=== PATIENT | female | born 1955 | race Two or more races ===

== ENCOUNTER 2017-02-13 07:20 | Emergency (ER) | payer OTHER ==
--- NOTE | 2017-02-13 07:45 | ER Document Report ---
HPI - HPI Patient complains to provider of: Left foot pain Onset: Other - Onset/Duration: Gradual, Persistent Quality of pain: Achy, Throbbing Pain Level: 5 Context: 62-year-old female complaining of dorsal left foot pain throbbing that started 2 days ago. It started swelling yesterday. No known injury. No history of gout. No fever or chills. Associated Symptoms: None Exacerbated by: Walking Relieved by: Denies Similar symptoms previously: No Recently seen / treated by doctor: No - ROS ROS below otherwise negative: Yes Systems Reviewed and Negative: Yes All other systems reviewed and negative - DERM Skin Color: Normal Past Medical History - General Information source: Patient - Social History Smoking Status: Never Smoker Frequency of alcohol use: None Drug Abuse: None Lives with: Family Family History: Reviewed & Not Pertinent Endocrine Medical History: Reports: Hx Diabetes Mellitus Type 2 Renal/ Medical History: Denies: Hx Peritoneal Dialysis Surgical Hx: Negative Vertical Provider Document - CONSTITUTIONAL Agree With Documented VS: Yes - INFECTION CONTROL TRAVEL OUTSIDE OF THE [place] IN LAST 30 DAYS: No - HEENT HEENT: Normocephalic - NECK Neck: Supple - RESPIRATORY Respiratory: Breath Sounds Normal, No Respiratory Distress O2 Sat by Pulse Oximetry: 97 - CARDIOVASCULAR Cardiovascular: Regular Rate, Regular Rhythm - MUSCULOSKELETAL/EXTREMETIES Musculoskeletal/Extremeties: MAEW, FROM, Tender - dorsal left foot over proximal 3rd MT, with 1.5 cm pink warm area, surrounding soft tissue swelling, no lypmhangitis, no cellulitis, Edema - NEURO Level of Consciousness: Awake, Alert Motor/Sensory: No Motor Deficit, No Sensory Deficit Notes: 2+ DP - DERM Integumentary: Warm, Dry Notes: see above Course - Vital Signs Vital signs: Temp Pulse Resp BP Pulse Ox 97.9 F 67 18 125/70 97 02/13/17 07:24 02/13/17 07:24 02/13/17 07:24 02/13/17 07:24 02/13/17 07:24 - Laboratory Result Diagrams: 02/13/17 08:25 02/13/17 08:25 Discharge - Discharge Clinical Impression: Gout of left foot Qualifiers: Gout etiology: unspecified cause Chronicity: acute Qualified Code(s): M10.9 - Gout, unspecified Condition: Good Disposition: HOME, SELF-CARE Instructions: Anti-Inflammatory Medication ([facility]), Use of Crutches ([facility]), Gout ( [facility]), Gout Diet ([facility]) Additional Instructions: elevate crutches cool compress gout prevention diet included to er if worse see your doctor for follow up Please complete the patient satisfaction survey if you get one, and return it.. If you do not receive a survey, then you can go to the [facility] website, [email or web address] and place your comments about your very good care. Thank you very much. It was a pleasure being your medical provider today. Prescriptions: Ibuprofen [Motrin 800 mg Tablet] 800 mg PO Q8HP PRN #20 tablet PRN Reason: Referrals: МАРИНА SPANGLER MD [Primary Care Provider] - Follow up as needed
[2017-02-13 08:40] LABS: ABSOLUTE EOSINOPHILS # (AUTO) 0.1 10^3/uL (0.0-0.6); ABSOLUTE LYMPHOCYTES (AUTO) 2.7 10^3/uL (0.5-4.7); ABSOLUTE MONOCYTES (AUTO) 0.6 10^3/uL (0.1-1.4); ABSOLUTE NEUT (AUTO) 5.3 10^3/uL (1.7-8.2); BASOPHILS % (AUTO) 0.5 % (0-2); HEMOGLOBIN 13.4 g/dL (12.0-15.5); HGB HCT DIFFERENCE 0.2; LYMPHOCYTES % (AUTO) 30.7 % (13-45); MEAN CORPUSCULAR HEMOGLOBIN 32.1 pg (27.0-33.4); MEAN CORPUSCULAR HGB CONC 33.4 g/dL (32.0-36.0); MEAN CORPUSCULAR VOLUME 96 fl (80-97); MONOCYTES % (AUTO) 6.8 % (3-13); RED BLOOD COUNT 4.17 10^6/uL (3.72-5.28); RED CELL DISTRIBUTION WIDTH 12.8 % (11.5-14.0); WHITE BLOOD COUNT 8.7 10^3/uL (4.0-10.5)
--- NOTE | 2017-02-13 08:40 | RADIOLOGY REPORT (SQ) ---
EXAM DESCRIPTION: FOOT LEFT COMPLETE COMPLETED DATE/TIME: 02/13/2017 8:16 am REASON FOR STUDY: left dorsal foot pain, atraumatic COMPARISON: None. NUMBER OF VIEWS: Three views. TECHNIQUE: AP, lateral and oblique radiographic images acquired of the left foot. LIMITATIONS: None. FINDINGS: MINERALIZATION: Normal. BONES: No acute fracture or dislocation. No worrisome bone lesions. JOINTS: No effusions. SOFT TISSUES: No soft tissue swelling. No foreign body. OTHER: No other significant finding. IMPRESSION: NEGATIVE STUDY OF THE LEFT FOOT. NO RADIOGRAPHIC EVIDENCE OF ACUTE INJURY. TECHNICAL DOCUMENTATION: JOB ID: [id number] [employer]- All Rights Reserved
[2017-02-13 08:51] LABS: ALANINE AMINOTRANSFERASE 49 U/L (9-52); ALBUMIN 3.8 g/dL (3.5-5.0); ALKALINE PHOSPHATASE 81 U/L (38-126); ANION GAP 10 (5-19); ASPARTATE AMINO TRANSFERASE 40 U/L (14-36); BILIRUBIN,DIRECT 0.3 mg/dL (0.0-0.4); BILIRUBIN,TOTAL 0.5 mg/dL (0.2-1.3); BLOOD UREA NITROGEN 18 mg/dL (7-20); CALCIUM 9.1 mg/dL (8.4-10.2); CARBON DIOXIDE 24 mmol/L (22-30); CHLORIDE 108 mmol/L (98-107); CREATININE RESULT 0.93 mg/dL (0.52-1.25); GLUCOSE 130 mg/dL (75-110); POTASSIUM 4.2 mmol/L (3.6-5.0); SODIUM 142.4 mmol/L (137-145); URIC ACID 8.5 mg/dL (2.5-7.5)
[2017-02-13] MEDS ORDERED: IBUPROFEN 800 MG TABLET PO ONE (08:52)
[2017-02-13 09:26] VITALS: BP 123/72
== END 2017-02-13 09:26 | disposition home or self-care (01) ==
LOC: ER 07:20
DX: M10.9 Gout, unspecified (principal); M79.672 Pain in left foot
CPT/HCPCS: 36415; 80053; 84550; 85025; 99284

== ENCOUNTER → 2017-05-07 | Outpatient (CLI) | payer OTHER ==
--- NOTE | 2017-05-07 09:49 | RADIOLOGY REPORT (SQ) ---
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 TECHNIQUE: Post IV contrasted scanning from skull base through lung apices with review of bone, soft tissue and lung windows. Reconstructed coronal and sagittal MPR images reviewed. All images stored on PACS. All CT scanners at this facility use dose modulation, iterative reconstruction, and/or weight based d osing when appropriate to reduce radiation dose to as low as reasonably achievable (ALARA). [facility]: Dose Right [facility]: CareDose [facility]: Dose Right [facility]: Teradose 4D [facility]: [employer] CONTRAST TYPE AND DOSE: contrast/concentration: Isovue 370.00 mg/ml; Total Contrast Delivered: 73.0 ml; Total Saline Delivered: 55.0 ml Patient was treated with us oral steroid prep, had no immediate complications post injection of Isovu e. RENAL FUNCTION: Creatinine 0.8 RADIATION DOSE: Up-to-date CT equipment and radiation dose reduction techniques were employed. CTDIv ol: 17.4 mGy. DLP: 496 mGy-cm. . LIMITATIONS: None. FINDINGS: SKULL BASE: Intact. MAJOR SALIVARY GLANDS: There is bilateral parotid gland hypertrophy. The right parotid gland measure s 6 cm craniocaudad by 5 cm AP by 5 cm transverse. Along the expected location of the right facial v ein, a 2 x 1 cm avidly enhancing lesion is present, likely ectasia of the right facial vein. This is best shown on axial image 24-29 and coronal image 49. Right parotid gland ultrasound is recommended for correlation. There are tiny intra parotid lymph nodes less than 5 mm in size in the superficial lobe anteriorly. On the left side, the left parotid gland measures about 6 cm craniocaudad by 5.7 cm AP by 5.4 cm mceknzie sverse. No worrisome nodules. Tiny intra parotid lymph nodes less than 5 mm in size are present in the superficial lobe. Submandibular and sublingual glands are unremarkable. LYMPHADENOPATHY: No adenopathy. MUCOSAL MASSES OR ASYMMETRY: No mucosal masses or asymmetry. LARYNX/CORDS: No abnormal findings. VASCULAR STRUCTURES: The major vessels are patent. LUNG APICES: Clear. BONES: Intact. 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 THYROID: Massive enlargement of the thyroid gland. Right lobe 8 cm craniocaudad by 4.3 cm transverse by 4.3 cm AP, with a 2 cm hypodensity for nodule in the right midpole gland. Left lobe thyroid 7.7 cm craniocaudad by 3.4 cm transverse by 4.3 cm AP. Multiple hypodensities in t he left lobe thyroid, the largest is 12 mm in diameter on axial image 64. PARANASAL SINUSES: Clear. OTHER: No other significant finding. IMPRESSION: Diffuse thyromegaly with multiple nodules, likely reflecting a goiter Bilateral parotid gland enlargement. Probable ectasia of the right facial vein, for which ultrasound correlation is recommended TECHNICAL DOCUMENTATION: JOB ID: [id number] Quality ID # [id number]: Final reports with documentation of one or more dose reduction techniques (e.g., Au tomated exposure control, adjustment of the mA and/or kV according to patient size, use of iterative reconstruction technique) 2010 [employer]- All Rights Reserved
== END ==
LOC: RAD 06:20
PROVIDERS: ATTEND Otolaryngology
DX: K11.1 Hypertrophy of salivary gland (principal)
CPT/HCPCS: 70491; 82565

== ENCOUNTER → 2017-05-25 | Outpatient (CLI) | payer OTHER ==
--- NOTE | 2017-05-25 17:30 | RADIOLOGY REPORT (SQ) ---
EXAM DESCRIPTION: U/S THYROID/SFT TISS HD NECK COMPLETED DATE/TIME: 05/25/2017 5:11 pm REASON FOR STUDY: K11.1 HYPERTROPHY OF SALIVARY GLAND K11.1 HYPERTROPHY OF SALIVARY GLAND COMPARISON: None. TECHNIQUE: Dynamic and static ibarra-scale images acquired of the thyroid gland. Selected additional c olor/power Doppler images recorded. All images stored to PACS. LIMITATIONS: None. FINDINGS: RIGHT LOBE: Normal size, 4.6 x 2.9 x 2.2 cm. Heterogeneous echotexture. There is a compl ex lesion in the lower pole that measures 2 x 2.3 x 1.7 cm. Several smaller hypoechoic Lesions are s een. LEFT LOBE: Normal size, 4.6 x 3.9 x 2.1 cm. Heterogeneous echotexture. Multiple definable solid nod ules are present. The largest is in the lower pole and measures 1.6 x 2 x 1.6 cm. ISTHMUS: Normal size, 7 mm Homogeneous echotexture. No cystic or solid masses. OTHER: No other significant finding. IMPRESSION: Multinodular goiter. Consider biopsy of the larger lesions on each side. TECHNICAL DOCUMENTATION: JOB ID: [id number]- All Rights Reserved
== END ==
LOC: RAD 16:12
PROVIDERS: ATTEND Otolaryngology
DX: K11.1 Hypertrophy of salivary gland (principal); E04.2 Nontoxic multinodular goiter
CPT/HCPCS: 76536

== ENCOUNTER 2017-08-28 19:26 | Emergency (ER) | payer OTHER ==
[2017-08-28] MEDS ORDERED: OXYCODONE-ACETAMINOPHEN 5-325 MG TABLET PO ONE (21:24)
--- NOTE | 2017-08-28 21:31 | ER Document Report ---
ED Fall - General Chief Complaint: Fall Injury Stated Complaint: FALL Time Seen by Provider: 08/28/17 21:14 Mode of Arrival: Medic Information source: Patient Notes: 62-year-old female presents to ED for complaint of pain to her left hip knee leg ankle and foot. She states she tripped over the kitchen rug at home and fell landing with her left knee underneath of her landing on her left hip. Pedal pulses are intact no deformity noted minimal swelling to the ankle and foot. TRAVEL OUTSIDE OF THE [place] IN LAST 30 DAYS: No - HPI Occurred: This - 1819 this evening Where: Home, Indoors Context: Tripped, Fell from standing Associated symptoms: Difficulty walking Location of injury/pain: Ankle, Foot, Hip, Knee Quality of pain: Sharp, Throbbing Severity: Moderate Pain Level: 3 - Related data Allergies/Adverse Reactions: iodine Allergy (Verified 02/13/17 07:28) Past Medical History - General Information source: Patient - Social History Smoking Status: Never Smoker Cigarette use (# per day): No Chew tobacco use (# tins/day): No Smoking Education Provided: No Frequency of alcohol use: None Drug Abuse: None Occupation: [employer] work Lives with: Family Family History: Arthritis, DM, Hypertension, Malignancy. denies: CAD, COPD, CVA , Hyperlipidemia, Thyroid Disfunction Patient has suicidal ideation: No Patient has homicidal ideation: No - Past Medical History Cardiac Medical History: Reports: Hx Hypertension Pulmonary Medical History: Reports: None EENT Medical History: Reports: None Neurological Medical History: Reports: None Endocrine Medical History: Reports: Hx Diabetes Mellitus Type 2 Renal/ Medical History: Reports: None Malignancy Medical History: Reports: None GI Medical History: Reports: Hx Colonoscopy, Hx Endoscopy Musculoskeltal Medical History: Reports Hx Arthritis, Reports Hx Musculoskeletal Trauma Skin Medical History: Reports None Psychiatric Medical History: Reports: None Traumatic Medical History: Reports: None Infectious Medical History: Reports: None Past Surgical History: Reports: Hx Cholecystectomy, Hx Hysterectomy - Immunizations Hx Diphtheria, Pertussis, Tetanus Vaccination: No Review of Systems - Review of Systems Constitutional: No symptoms reported EENT: No symptoms reported Cardiovascular: No symptoms reported Respiratory: No symptoms reported Gastrointestinal: No symptoms reported Genitourinary: No symptoms reported Female Genitourinary: No symptoms reported Musculoskeletal: Joint pain - Pain from her left hip to her left foot, Joint swelling, Muscle pain, Muscle stiffness Skin: No symptoms reported Hematologic/Lymphatic: No symptoms reported Neurological/Psychological: No symptoms reported -: Yes All other systems reviewed and negative Physical Exam - Vital signs Vitals: Temp Pulse BP Pulse Ox 97.7 F 87 132/66 H 97 08/28/17 19:38 08/28/17 19:38 08/28/17 19:38 08/28/17 19:38 Interpretation: Normal - General General appearance: Appears well, Alert - HEENT Head: Normocephalic, Atraumatic Eyes: Normal Pupils: PERRL - Respiratory Respiratory status: No respiratory distress Chest status: Nontender Breath sounds: Normal Chest palpation: Normal - Cardiovascular Rhythm: Regular Heart sounds: Normal auscultation Murmur: No - Abdominal Inspection: Normal Distension: No distension Bowel sounds: Normal Tenderness: Nontender Organomegaly: No organomegaly - Back Back: Normal, Nontender - Extremities General upper extremity: Normal inspection, Nontender, Normal color, Normal ROM , Normal temperature General lower extremity: Normal temperature, Normal weight bearing. No: Javier' s sign Hip: Tender, Pain with ROM. No: Abrasion, Deformity, Dislocation, Ecchymosis, Instability, Laceration, Unable to bear weight Thigh: Tender Knee: Tender, Pain with ROM, Patellar tendon intact, Tender joint line. No: Abrasion, Deformity, Dislocation, Drawer's test instability, Ecchymosis, Instability, Laceration, Laxity with valgus stress, Laxity with varus stress, Popliteal fossa tender, Unable to bear weight Calf: Tender. No: Abrasion, Deformity, Ecchymosis, Instability, Laceration, Unable to bear weight Ankle: Tender, Limited ROM - Due to pain. No: Abrasion, Deformity, Ecchymosis, Edema, Instability, Laceration, Positive Diez's test, Unable to bear weight Foot: Tender, Metatarsal compress. pain, No evidence of FB. No: Abrasion, Deformity, Ecchymosis, Edema, Instability, Laceration, Nail injury, Navicular tenderness, Tender 5th metatarsal - Neurological Neuro grossly intact: Yes Cognition: Normal Orientation: AAOx4 [place] Coma Scale Eye Opening: Spontaneous [place] Coma Scale Verbal: Oriented [place] Coma Scale Motor: Obeys Commands Karla Coma Scale Total: 15 Speech: Normal Motor strength normal: LUE, RUE, LLE, RLE Sensory: Normal - Psychological Associated symptoms: Normal affect, Normal mood - Skin Skin Temperature: Warm Skin Moisture: Dry Skin Color: Normal Course - Re-evaluation Re-evalutation: 08/28/17 22:42 X-rays discussed with patient. Patient was treated with 1 Percocet in the emergency room and sent home with prescription for Percocet. Patient instructed to follow-up with her primary doctor and with the orthopedic doctor for this ankle sprain with arthritis to the knee and contusions to the hip leg ankle and foot. Patient verbalized understanding of instructions for elevation ice and ibuprofen and Miguel Angel wrap with splint. Patient was instructed on use of crutches in the emergency room. - Vital Signs Vital signs: Temp Pulse Resp BP Pulse Ox 97.3 F 74 20 132/70 H 96 08/28/17 23:02 08/28/17 23:02 08/28/17 23:02 08/28/17 23:02 08/28/17 23:02 - Diagnostic Test Radiology reviewed: Image reviewed, Reports reviewed Procedures - Immobilization Left Ankle Time completed: 22:42 Pre-Proc Neuro Vasc Exam: Normal Immobilizer type: Miguel Angel wrap, Ankle stirrup, Crutches Performed by: Provider assisted, Other - actuary clerk Post-Proc Neuro Vasc Exam: Normal Alignment checked and good: Yes Discharge - Discharge Clinical Impression: Arthritis Fall Qualifiers: Encounter type: initial encounter Qualified Code(s): W19.XXXA - Unspecified fall, initial encounter Contusion, hip and thigh Qualifiers: Encounter type: initial encounter Laterality: left Qualified Code(s): S70.02XA - Contusion of left hip, initial encounter Contusion, knee and lower leg Qualifiers: Encounter type: initial encounter Laterality: left Qualified Code(s): S80.02XA - Contusion of left knee, initial encounter Sprained ankle Qualifiers: Encounter type: initial encounter Involved ligament of ankle: unspecified ligament Laterality: left Qualified Code(s): S93.402A - Sprain of unspecified ligament of left ankle, initial encounter Condition: Stable Disposition: HOME, SELF-CARE Additional Instructions: Contusion Your injury has resulted in a contusion -- a crushing of the deep tissues. No injury to important structures was detected during the physician's exam. Contusions vary in the amount of pain they cause, and in the length of time required for healing. Typically, the area will become bruised, and will remain painful to touch for two or three weeks. However, most patients are back to working and playing within a few days. After the initial period of rest and cold-packs, your symptoms (together with the doctor's recommendations) will determine how rapidly you can get back to full activity. Usually this means "do what feels okay, but don't do things that hurt." If re-examination was recommended, it's important to follow up as instructed. Call the doctor or return any time if pain increases, if swelling becomes severe, if you develop numbness or weakness in an injured extremity, or if any other alarming symptoms occur. Arthritis Your symptoms are due to arthritis. Arthritis is an inflammation of the joints. There are many types -- osteoarthritis (due to "wear and tear"), auto- immmune arthritis (such as rheumatoid, lupus, Mariel's, and others), and crystal -induced arthritis (such as gout and pseudogout). The physician's examination, combined with laboratory tests, will determine the cause of your arthritis. All types of arthritis are treated with antiinflammatory medications. Other medication may be required for special types of arthritis, or if your problem does not respond to the antiinflammatory medicine. Local warmth may be helpful. Move the involved joints through the full range of motion daily. Mild exercise is usually still possible for most persons with arthritis (ask your physician). Swimming provides good exercise without damaging the joints. Contact the physician if you are worsening in any way. SPRAINED ANKLE: Your sprained ankle results from stretching or tearing of the ligaments which support the ankle. This usually results from twisting the foot inward and under. The ligaments will require time and protection in order to heal properly. Many ankle sprains are quite disabling, and should be taken seriously. The usual treatment for an ankle sprain is cold packs; protection with tape , splints, or wraps; elevation; and staying off the ankle for at least a day. As the ankle improves, you can walk IF it's not painful to bear weight. Sports are best postponed until healing is complete. More serious sprains usually require strengthening exercises after early healing. Your physician has assessed the seriousness of the ligament injury to your ankle. However, the treatment may change, depending on how your ankle progresses. If further exams were recommended, it is important that you follow through. Call the doctor if your foot becomes numb, painful, or severely swollen. MIGUEL ANGEL WRAP: A compression dressing (miguel angel wrap) has been placed. This helps hold the area still. It limits swelling and internal bleeding. The wrap should be comfortably snug -- not tight. You should feel a sense of pressure, but not severe pain under the wrap. Unless the physician tells you otherwise, you can adjust the wrap for comfort. If the wrap causes symptoms suggesting it's too tight -- uncomfortable pressure, swelling or discoloration beyond the wrap, numbness, or severe pain - - you must loosen the wrap. If these symptoms don't resolve promptly, return for re-evaluation. ANKLE STIRRUP SPLINT: You are to use an ankle brace called a stirrup splint. This type of brace allows you to place greater stresses on the ankle without risk of re-injury, and is often used for more severe ankle injuries such as avulsion fractures and ligament ruptures. The splint can be worn over a sock or tape. For proper support, wear the splint with a shoe over it. It's important that the splint fit properly. Adjust the heel tension, if needed. If your splint has air bladders, peel back the bottom of each air bladder, then move the Velcro attachment of the heel strap up or down. Air bladder pressure can be adjusted by pulling up the valve at the top, threading the air tube down into the main bladder, then blowing air into the bladder or squeezing it out. The two sides of the stirrup can be moved forward or back on your ankle by changing the attachment of the main straps. If you are unable to use the ankle comfortably in the splint, return for re -evaluation. USE OF CRUTCHES: The doctor has recommended that you not bear weight at this time. You will need to use crutches. Adjust the crutches so the tops come to about two inches under the armpit while you are standing upright. Use your hands -- not your armpits -- to support your weight. To get into a chair, support yourself with one crutch on the injured side. Hold the chair with the other hand, then lower yourself while putting all your weight on the good leg. Going up stairs is `good leg up, step up, then bring up crutches and bad leg.' Down stairs is `bad leg and crutches down, then bring good leg down.' If you develop numbness or swelling in an arm or hand, you are using the crutches incorrectly. Return if you are having any problems with the crutches. ICE & ELEVATION: Apply ice packs frequently against the painful area. Many different schedules are recommended, such as "20 minutes on, 20 minutes off" or "one hour ice, two hours rest." If you need to work, you may need to go longer between ice treatments. You should plan to have the area ice packed AT LEAST one- fourth of the time. The ice should be applied over the wrap, tape, or splint, or over a layer of cloth -- not directly against the skin. Some ice bags have a built-in cloth and can be put directly on the skin. Your injured part should be elevated as much as possible over the next 48 hours. Try to keep the injury above the level of the heart. Avoid use of the injured area. Elevation and rest will decrease the swelling. USE OF [id number]-FOBMYAR IBUPROFEN: Ibuprofen (Advil, Nuprin, Medipren, Motrin IB) is a medication for fever and pain control. In addition, it has anti- inflammatory effects which may be beneficial, especially in the treatment of injuries. It's best to take ibuprofen with food. Persons with ulcer disease or allergy to aspirin should notify their physician of this before taking ibuprofen. Ibuprofen can be given every four to six hours, for a total of four doses daily. Age Pain or fever dose Antiinflammatory dose 6-8 yr 200 mg (1 tab) 200 mg (1 tab) 9-11 yr 200 mg (1 tab) 200-400 mg (1-2 tab) 11-14 yr 200-400 mg (1-2 tab) 400 mg (2 tab) 15-adult 400 mg (2 tab) 600 mg (3 tab) ORAL NARCOTIC MEDICATION: You have been given a prescription for pain control. This medication is a narcotic. It's best taken with food, as nausea can result if taken on an empty stomach. Don't operate machinery or drive within six hours of taking this medication. Do not combine this medicine with alcohol, or with any medication which can cause sedation (such as cold tablets or sleeping pills) unless you get permission from the physician. Narcotics tend to cause constipation. If possible, drink plenty of fluids and eat a diet high in fiber and fruits. Please be aware that prescription narcotics also have the potential for abuse. People become addicted to these medications because of the general sense of wellbeing that they induce. This feeling along with a significant reduction in tension, anxiety, and aggression provides a stimulating seductive quality to these drugs. Once your pain is under control, we encourage you to discard your unused narcotics. Call Wednesday to schedule a follow-up appointment with both your primary doctor and the orthopedic doctor. FOLLOW-UP CARE: If you have been referred to a physician for follow-up care, call the physician s office for an appointment as you were instructed or within the next two days. If you experience worsening or a significant change in your symptoms, notify the physician immediately or return to the Emergency Department at any time for re-evaluation. Prescriptions: Oxycodone HCl/Acetaminophen [Percocet 5-325 mg Tablet] 1 tab PO Q8HP PRN #5 tablet PRN Reason: Forms: Elevated Blood Pressure, Return to Work Referrals: МАРИНА SPANGLER MD [Primary Care Provider] - 08/30/17 ANNEMARIE QUEZADA MD [ACTIVE STAFF] - 08/30/17
--- NOTE | 2017-08-28 22:09 | RADIOLOGY REPORT (SQ) ---
EXAM DESCRIPTION: ANKLE LEFT COMPLETE COMPLETED DATE/TIME: 08/28/2017 10:00 pm REASON FOR STUDY: fall landing on hip with knee under her COMPARISON: None. NUMBER OF VIEWS: Three views. TECHNIQUE: AP, lateral, and oblique radiographic images acquired of the left ankle. LIMITATIONS: None. FINDINGS: MINERALIZATION: Normal. BONES: No acute fracture or dislocation. No worrisome bone lesions. Tibial and calcaneal enthesophy rita are present. JOINTS: No effusions. SOFT TISSUES: Mild circumferential soft tissue edema. OTHER: No other significant finding. IMPRESSION: Mild circumferential soft tissue edema. No underlying fracture. TECHNICAL DOCUMENTATION: JOB ID: [id number] [employer]- All Rights Reserved Reading location - IP/workstation name: [email or web address]
--- NOTE | 2017-08-28 22:10 | RADIOLOGY REPORT (SQ) ---
EXAM DESCRIPTION: HIP LEFT AP/LATERAL COMPLETED DATE/TIME: 08/28/2017 10:00 pm REASON FOR STUDY: fall landing on hip with knee under her COMPARISON: None. NUMBER OF VIEWS: Two views. TECHNIQUE: AP pelvis and additional frog-leg view of the left hip. LIMITATIONS: None. FINDINGS: MINERALIZATION: Normal. LEFT HIP: No fracture or dislocation. No worrisome bone lesions. RIGHT HIP: No fracture or dislocation. No worrisome bone lesions. PUBIS AND ISCHIUM: No fracture. PELVIS: No fracture. SACRUM: No fracture or dislocation. No worrisome bone lesions. LOWER LUMBAR SPINE: No fracture or dislocation. No worrisome bone lesions. Degenerative changes are present. SOFT TISSUES: No findings. OTHER: No other significant finding. IMPRESSION: No evidence of acute osseous injury. TECHNICAL DOCUMENTATION: JOB ID: [id number] [employer]- All Rights Reserved Reading location - IP/workstation name: [email or web address]
--- NOTE | 2017-08-28 22:10 | RADIOLOGY REPORT (SQ) ---
EXAM DESCRIPTION: FOOT LEFT COMPLETE COMPLETED DATE/TIME: 08/28/2017 10:00 pm REASON FOR STUDY: fall landing on hip with knee under her COMPARISON: 02/13/2017 NUMBER OF VIEWS: Three views. TECHNIQUE: AP, lateral and oblique radiographic images acquired of the left foot. LIMITATIONS: None. FINDINGS: MINERALIZATION: Normal. BONES: No acute fracture or dislocation. No worrisome bone lesions. Mild midfoot degenerative infante es are present. JOINTS: No effusions. SOFT TISSUES: No soft tissue swelling. No foreign body. OTHER: No other significant finding. IMPRESSION: No evidence of acute osseous injury. TECHNICAL DOCUMENTATION: JOB ID: [id number] [employer]- All Rights Reserved Reading location - IP/workstation name: [email or web address]
--- NOTE | 2017-08-28 22:11 | RADIOLOGY REPORT (SQ) ---
EXAM DESCRIPTION: KNEE LEFT 4 VIEW COMPLETED DATE/TIME: 08/28/2017 10:00 pm REASON FOR STUDY: fall landing on hip with knee under her COMPARISON: None. NUMBER OF VIEWS: Four views. TECHNIQUE: AP, lateral, and both oblique radiographic images acquired of the left knee. LIMITATIONS: None. FINDINGS: MINERALIZATION: Normal. BONES: No acute fracture or dislocation. No worrisome bone lesions. Tricompartmental degenerative c hanges are present. JOINT: No effusion. SOFT TISSUES: No soft tissue swelling. No radio-opaque foreign body. OTHER: No other significant finding. IMPRESSION: No evidence of acute osseous injury. Background of tricompartmental degenerative change s. TECHNICAL DOCUMENTATION: JOB ID: [id number] [employer]- All Rights Reserved Reading location - IP/workstation name: [email or web address]
--- NOTE | 2017-08-28 22:12 | RADIOLOGY REPORT (SQ) ---
EXAM DESCRIPTION: TIBIA FIBULA LEFT COMPLETED DATE/TIME: 08/28/2017 10:00 pm REASON FOR STUDY: fall landing on hip with knee under her COMPARISON: None. NUMBER OF VIEWS: Two views. TECHNIQUE: Two radiographic images acquired of the left tibia and fibula to include the knee and ank le in at least one projection. LIMITATIONS: None. FINDINGS: MINERALIZATION: Normal. BONES: No acute fracture or dislocation. No worrisome bone lesions. SOFT TISSUES: No obvious swelling or foreign body. OTHER: No other significant finding. IMPRESSION: No evidence of acute osseous injury. TECHNICAL DOCUMENTATION: JOB ID: [id number] [employer]- All Rights Reserved Reading location - IP/workstation name: [email or web address]
[2017-08-28 23:04] VITALS: BP 132/70
== END 2017-08-28 23:04 | disposition home or self-care (01) ==
LOC: ER 19:26
DX: S93.402A Sprain of unspecified ligament of left ankle, initial encounter (principal); S70.02XA Contusion of left hip, initial encounter; S80.02XA Contusion of left knee, initial encounter; S90.30XA Contusion of unspecified foot, initial encounter; W01.0XXA Fall on same level from slipping, tripping and stumbling without subsequent striking against object, initial encounter; Y92.000 Kitchen of unspecified non-institutional (private) residence as the place of occurrence of the external cause; I10 Essential (primary) hypertension; M25.572 Pain in left ankle and joints of left foot; M25.552 Pain in left hip; M25.562 Pain in left knee; M79.1 Myalgia
CPT/HCPCS: 99283; 73610; 73630; 73502; 73562; 73590; L1902

== ENCOUNTER → 2019-03-09 | Outpatient (CLI) | payer OTHER ==
--- NOTE | 2019-03-09 16:51 | RADIOLOGY REPORT (SQ) ---
EXAM DESCRIPTION: CHEST PA/LATERAL COMPLETED DATE/TIME: 03/09/2019 4:42 pm REASON FOR STUDY: COUGH; RLQ PAIN; LOW BACK PAIN COMPARISON: 07/15/2009 EXAM PARAMETERS: NUMBER OF VIEWS: two views TECHNIQUE: Digital Frontal and Lateral radiographic views of the chest acquired. RADIATION DOSE: NA LIMITATIONS: none FINDINGS: LUNGS AND PLEURA: There is patchy opacification in the right middle lobe. MEDIASTINUM AND HILAR STRUCTURES: No masses or contour abnormalities. HEART AND VASCULAR STRUCTURES: Heart size is borderline. BONES: No acute findings. HARDWARE: None in the chest. OTHER: No other significant finding. IMPRESSION: Borderline heart size. Right middle lobe pneumonia. TECHNICAL DOCUMENTATION: JOB ID: [id number] [employer]- All Rights Reserved Reading location - IP/workstation name: [email or web address]
--- NOTE | 2019-03-09 16:53 | RADIOLOGY REPORT (SQ) ---
EXAM DESCRIPTION: KUB COMPLETED DATE/TIME: 03/09/2019 4:42 pm REASON FOR STUDY: COUGH; RLQ PAIN; LOW BACK PAIN R05 COUGH COMPARISON: None. NUMBER OF VIEWS: One view. TECHNIQUE: Supine radiographic image of the abdomen acquired. LIMITATIONS: None. FINDINGS: BOWEL GAS PATTERN: Normal gas pattern. Retained stool. CALCIFICATIONS: No suspicious calcifications. SOFT TISSUES: No gross mass or suggestion of organomegaly. HARDWARE: None in the abdomen. BONES: No acute fracture. No worrisome bone lesions. OTHER: No other significant finding. IMPRESSION: Constipation. TECHNICAL DOCUMENTATION: JOB ID: [id number] [employer]- All Rights Reserved Reading location - IP/workstation name: [email or web address]
--- NOTE | 2019-03-09 16:57 | RADIOLOGY REPORT (SQ) ---
EXAM DESCRIPTION: LUMBAR SPINE COMPLETE COMPLETED DATE/TIME: 03/09/2019 4:42 pm REASON FOR STUDY: COUGH; RLQ PAIN; LOW BACK PAIN R05 COUGH COMPARISON: None. NUMBER OF VIEWS: Five views including obliques. TECHNIQUE: AP, lateral, oblique, and sacral radiographic images acquired of the lumbar spine. LIMITATIONS: None. FINDINGS: MINERALIZATION: Normal. SEGMENTATION: Normal. No transitional anatomy. ALIGNMENT: Normal. VERTEBRAE: Maintained height. No fracture or worrisome bone lesion. DISCS: There is disc narrowing at L5-S1. Mild disc narrowing at L4-5. Marginal osteophytes. POSTERIOR ELEMENTS: Hypertrophic facet changes from L4-S1. HARDWARE: None in the spine. PARASPINAL SOFT TISSUES: Normal. PELVIS: Intact as visualized. No fractures or worrisome bone lesions. SI joints intact. OTHER: No other significant finding. IMPRESSION: Degenerative disc disease, spondylosis, and facet arthropathy. TECHNICAL DOCUMENTATION: JOB ID: [id number] [employer]- All Rights Reserved Reading location - IP/workstation name: [email or web address]
== END ==
LOC: OD 16:10
PROVIDERS: ATTEND Internal Medicine
DX: M54.5 Low back pain (principal); R10.31 Right lower quadrant pain; R05 Cough
CPT/HCPCS: 71046; 72110; 74018

== ENCOUNTER 2019-03-25 14:58 | Observation (INO) | payer MEDICAID, OTHER ==
[~2019-03-25 14:58] MED LIST: RIVAROXABAN 15 MG TABLET PO SCH
--- NOTE | 2019-03-25 15:49 | ER Document Report ---
ED Medical Screen (RME) - General Chief Complaint: Leg Swelling Stated Complaint: RIGHT CALF,KNEE PAIN Time Seen by Provider: 03/25/19 15:37 Primary Care Provider: МАРИНА SPANGLER MD [Primary Care Provider] - Follow up as needed Notes: 64-year-old female presented to ED for complaint of pain to the back of the left leg with swelling from the upper leg to the lower leg. She states she has had a cough for about 2 months. She states she went to her doctor in 3 weeks ago they diagnosed her with left lung pneumonia and put on antibiotics she states she returned to the doctor last week and they diagnosed her with right lung pneumonia. She states she did not take the antibiotics a second time because they did not help her the first time. She states now her left leg has become very painful and swollen from the just below the buttock all the way down to the ankle. Patient is alert and oriented respirations regular and unlabored speaking in full sentences. I have greeted and performed a rapid initial assessment of this patient. A comprehensive ED assessment and evaluation of the patient, analysis of test results and completion of medical decision making process will be conducted by an additional ED providers. TRAVEL OUTSIDE OF THE [place] IN LAST 30 DAYS: No - Related Data Allergies/Adverse Reactions: iodine Allergy (Verified 03/25/19 15:37) Past Medical History - Social History Chew tobacco use (# tins/day): No Frequency of alcohol use: None Drug Abuse: None - Past Medical History Cardiac Medical History: Reports: Hx Hypertension Endocrine Medical History: Reports: Hx Diabetes Mellitus Type 2 Renal/ Medical History: Denies: Hx Peritoneal Dialysis GI Medical History: Reports: Hx Colonoscopy, Hx Endoscopy Musculoskeltal Medical History: Reports Hx Arthritis, Reports Hx Musculoskeletal Trauma Past Surgical History: Reports: Hx Cholecystectomy, Hx Hysterectomy - Immunizations Hx Diphtheria, Pertussis, Tetanus Vaccination: No Physical Exam - Vital signs Vitals: Temp Pulse Resp BP Pulse Ox 97.8 F 84 16 151/64 H 97 03/25/19 15:19 03/25/19 15:19 03/25/19 15:19 03/25/19 15:19 03/25/19 15:19 Course - Vital Signs Vital signs: Temp Pulse Resp BP Pulse Ox 97.8 F 84 16 151/64 H 97 03/25/19 15:19 03/25/19 15:19 03/25/19 15:19 03/25/19 15:19 03/25/19 15:19 Doctor's Discharge - Discharge Referrals: МАРИНА SPANGLER MD [Primary Care Provider] - Follow up as needed
[2019-03-25] MEDS ORDERED: FAMOTIDINE INJ/PF 20 MG/2 ML SDV IV ONE (15:52)
[2019-03-25] MEDS ORDERED: METHYLPREDNISOLONE INJ 125 MG/2 ML SDV IV ONE (15:52)
[2019-03-25] MEDS ORDERED: DIPHENHYDRAMINE HCL 50 MG/ML VIAL IV ONE (15:52)
[2019-03-25 16:23] LABS: ABSOLUTE EOSINOPHILS # (AUTO) 0.2 10^3/uL (0.0-0.6); ABSOLUTE NEUT (AUTO) 6.7 10^3/uL (1.7-8.2); BASOPHILS % (AUTO) 0.3 % (0-2); HEMATOCRIT 40.8 % (36.0-47.0); HEMOGLOBIN 13.5 g/dL (12.0-15.5); LYMPHOCYTES % (AUTO) 27.8 % (13-45); MEAN CORPUSCULAR HEMOGLOBIN 30.2 pg (27.0-33.4); MEAN CORPUSCULAR HGB CONC 33.2 g/dL (32.0-36.0); MEAN CORPUSCULAR VOLUME 91 fl (80-97); MONOCYTES % (AUTO) 8.8 % (3-13); PLATELET COUNT 136 10^3/uL (150-450); RED BLOOD COUNT 4.49 10^6/uL (3.72-5.28); RED CELL DISTRIBUTION WIDTH 13.2 % (11.5-14.0); SEGMENTED NEUTROPHILS % (AUTO) 61.1 % (42-78); TOTAL CELLS COUNTED % (AUTO) 100 %
[2019-03-25 16:46] LABS: INTERNATIONAL RATION (INR) 1.12; PROTHROMBIN TIME 14.5 SEC (11.4-15.4)
[2019-03-25 16:47] LABS: PARTIAL THROMBOPLASTIN TIME 28.6 SEC (23.5-35.8)
[2019-03-25 17:16] LABS: ALBUMIN 4.2 g/dL (3.5-5.0); ALKALINE PHOSPHATASE 130 U/L (38-126); ANION GAP 9 (5-19); ASPARTATE AMINO TRANSFERASE 39 U/L (14-36); BILIRUBIN,DIRECT 0.2 mg/dL (0.0-0.4); BILIRUBIN,TOTAL 0.8 mg/dL (0.2-1.3); BLOOD UREA NITROGEN 24 mg/dL (7-20); CALCIUM 10.4 mg/dL (8.4-10.2); CARBON DIOXIDE 30 mmol/L (22-30); CHLORIDE 96 mmol/L (98-107); CREATINE KINASE 232 U/L (30-135); GLUCOSE 103 mg/dL (75-110); POTASSIUM 3.5 mmol/L (3.6-5.0); TOTAL PROTEIN 8.1 g/dL (6.3-8.2)
--- NOTE | 2019-03-25 17:20 | ER Document Report ---
ED Extremity Problem, Lower - General Chief Complaint: Leg Swelling Stated Complaint: RIGHT CALF,KNEE PAIN Time Seen by Provider: 03/25/19 15:37 Notes: 64-year-old female with hypertension presents to the emergency department with chief complaint of back pain and pain to her left leg with swelling, her entire leg. Patient states that the back pain started about a week ago when she woke up with the leg pain and swelling this morning. Patient went to [facility] urgent care and was referred here for advanced imaging. Patient also co mplains of acute shortness of breath. Patient was diagnosed with a left lung pneumonia approximately 3 weeks ago and was given a course of antibiotics which she states did not help. She got follow-up imaging which showed a very small right lower lobe pneumonia and she did not get treatment for it. She denies any fevers or chills, denies any chest pain, denies any acute weakness, denies any nausea/vomiting/diarrhea/constipation, denies abdominal pain. TRAVEL OUTSIDE OF THE [place] IN LAST 30 DAYS: No - Related Data Allergies/Adverse Reactions: iodine Allergy (Verified 03/25/19 15:37) Past Medical History - Social History Smoking Status: Never Smoker Chew tobacco use (# tins/day): No Frequency of alcohol use: None Drug Abuse: None Family History: Arthritis, DM, Hypertension, Malignancy. denies: CAD, COPD, CVA, Hyperlipidemia, Thyroid Disfunction Patient has suicidal ideation: No Patient has homicidal ideation: No - Past Medical History Cardiac Medical History: Reports: Hx Hypertension Endocrine Medical History: Reports: Hx Diabetes Mellitus Type 2 Renal/ Medical History: Denies: Hx Peritoneal Dialysis GI Medical History: Reports: Hx Colonoscopy, Hx Endoscopy Musculoskeletal Medical History: Reports Hx Arthritis, Reports Hx Musculoskeletal Trauma Past Surgical History: Reports: Hx Cholecystectomy, Hx Hysterectomy - Immunizations Hx Diphtheria, Pertussis, Tetanus Vaccination: No Review of Systems - Review of Systems Constitutional: See HPI EENT: No symptoms reported Cardiovascular: See HPI Respiratory: See HPI Gastrointestinal: See HPI Genitourinary: See HPI Female Genitourinary: No symptoms reported Musculoskeletal: See HPI Skin: No symptoms reported Hematologic/Lymphatic: No symptoms reported Neurological/Psychological: See HPI Physical Exam - Vital signs Vitals: Temp Pulse Resp BP Pulse Ox 97.8 F 84 16 151/64 H 97 03/25/19 15:19 03/25/19 15:19 10/05/19 15:19 03/25/19 15:19 03/25/19 15:19 - Notes Notes: PHYSICAL EXAMINATION: Reviewed vital signs and charting by RN GENERAL: Alert, interacts well. No acute distress. HEAD: Normocephalic, atraumatic. EYES: Pupils equal and round. Extraocular movements intact. ENT: Oral mucosa moist, tongue midline. NECK: Full range of motion. Trachea midline. LUNGS: Clear to auscultation bilaterally, no wheezes, rales, or rhonchi. No respiratory distress. HEART: Regular rate and rhythm. No murmur ABDOMEN: soft, non-tender. No distention. Bowel sounds present EXTREMITIES: Moves all 4 extremities spontaneously. Unilateral right lower extremity edema with acute tenderness to palpation PSYCH: Normal affect, normal mood. SKIN: Warm, dry, normal turgor. No rashes or lesions noted. Course - Re-evaluation Re-evalutation: 03/25/19 17:20 Patient laying in the bed in no acute distress. Work-up ordered in triage. P atient positive for a distal femoral vein DVT. Lab work still pending and CTA chest pending. 03/25/19 19:00 I did call the hospitalist to come and assess the patient as we have a known DVT diagnosis that is admissible. Dr. Singh came and saw the patient and admitted the patient for full admission. - Vital Signs Vital signs: Temp Pulse Resp BP Pulse Ox 97.8 F 84 16 151/64 H 97 03/25/19 15:19 03/25/19 15:19 03/25/19 15:19 03/25/19 15:19 03/25/19 15:19 - Laboratory Result Diagrams: 03/25/19 15:55 03/25/19 15:55 Laboratory results interpreted by me: 03/25/19 03/25/19 15:55 15:55 WBC 11.0 H Plt Count 136 L Sodium 135.1 L Potassium 3.5 L Chloride 96 L BUN 24 H Calcium 10.4 H AST 39 H Alkaline Phosphatase 130 H Creatine Kinase 232 H Discharge - Discharge Clinical Impression: DVT of proximal leg (deep vein thrombosis) Qualifiers: Chronicity: acute Laterality: right Qualified Code(s): I82.4Y1 - Acute embolism and thrombosis of unspecified deep veins of right proximal lower extremity Condition: Stable Disposition: ADMITTED INPATIENT Admitting Provider: Samantha (Hospitalist) Unit Admitted: [facility]
[2019-03-25 17:27] LABS: CREATINE KINASE MB 0.76 ng/mL (<4.55)
--- NOTE | 2019-03-25 17:28 | RADIOLOGY REPORT (SQ) ---
EXAM DESCRIPTION: VENOUS UNILATERAL LOWER COMPLETED DATE/TIME: 03/25/2019 4:48 pm REASON FOR STUDY: right lower extremity pain and swelling COMPARISON: Bilateral venous Doppler ultrasound 04/22/2016. TECHNIQUE: Grayscale and color images acquired of the right leg venous system. Selected spectral shey ges acquired with additional compression and augmentation maneuvers. The contralateral common femoral vein and saphenofemoral junction were also imaged. Images stored on PACS. LIMITATIONS: None. FINDINGS: COMMON FEMORAL: Normal phasicity, compression and augmentation. No visualized echogenic ma terial on ibarra scale. No defects on color images. FEMORAL: Normal compression of the mid and proximal femoral vein. The distal femoral vein is noncomp ressible with echogenic material. POPLITEAL: Noncompressible with echogenic material. CALF VESSELS: Noncompressible posterior tibial and peroneal veins with echogenic material. GSV and SSV: Normal compression, augmentation. No visualized echogenic material on ibarra scale. No def ects on color images. ANY DEEP VENOUS INSUFFICIENCY: Not evaluated. ANY EVIDENCE OF POPLITEAL CYST: No. CONTRALATERAL COMMON FEMORAL VEIN AND SAPHENOFEMORAL JUNCTION: Normal phasicity, compression and augmentation. No visualized echogenic material on ibarra scale. No de fects on color images. IMPRESSION: Acute deep vein thrombosis at the right leg at the distal femoral vein, popliteal vein, posterior tibial vein and peroneal vein. COMMENT: Pertinent findings on the imaging study reported as a CRITICAL RESULT to JEANETTE MALIK NP at17:20 hrs on 03/25/2019. Category of Critical Result: Acute DVT. TECHNICAL DOCUMENTATION: JOB ID: [id number] [employer]- All Rights Reserved Reading location - IP/workstation name: [email or web address]
[2019-03-25 17:32] LABS: TROPONIN I < 0.012 ng/mL
[2019-03-25] MEDS ORDERED: LEVALBUTEROL HCL NEB 0.63 MG/3 ML AMPUL NEB PRN (18:16)
[2019-03-25] MEDS ORDERED: ONDANSETRON HCL INJ/PF 4 MG/2 ML SDV IV PRN (18:16)
[2019-03-25] MEDS ORDERED: ACETAMINOPHEN 325 MG TABLET PO PRN (18:16)
[2019-03-25] MEDS ORDERED: DEXTROSE 40% GEL 15 GM TUBE PO PRN ×2 (18:20)
[2019-03-25] MEDS ORDERED: GLUCAGON,HUMAN RECOMB 1 MG INJ IM PRN (18:20)
[2019-03-25] MEDS ORDERED: DEXTROSE 50%-WATER 25 GM/50 ML DISP.SYRIN IV PRN ×2 (18:20)
[2019-03-25] MEDS ORDERED: HYDRALAZINE HCL INJ/PF 20 MG/1 ML SDV IV PRN (18:21)
[2019-03-25] MEDS ORDERED: LORAZEPAM INJ 2 MG/1 ML VIAL IV PRN (18:30)
--- NOTE | 2019-03-25 18:30 | PDOC H&P ---
History of Present Illness Admission Date/PCP: МАРИНА SPANGLER MD Patient complains of: Right lower leg swelling from this morning History of Present Illness: VLADIMIR LUCERO is a 64 year old female with history of type 2 diabetes mellitus, hypertension, morbid obesity came to the emergency room with right lower leg swelling and pain. She went to primary care clinic with complaints of right lower leg swelling and she was referred to the emergency room for further evaluation found to have extensive right lower leg DVT. Patient complaining of pain scale of 10 x 10. Denies any shortness of breath denies any chest pains. Vital signs are stable in the emergency room. Patient is allergic to iodine she is premedicated to have a CTA of the chest to rule out PE. Patient agreed to stay in the hospital for further management. Past Medical History Cardiac Medical History: Reports: Hypertension Endocrine Medical History: Reports: Diabetes Mellitus Type 2 Musculoskeltal Medical History: Reports: Arthritis Past Surgical History Past Surgical History: Reports: Cholecystectomy, Hysterectomy Social History Information Source: Patient Lives with: Family Smoking Status: Never Smoker Electronic Cigarette use?: No Frequency of Alcohol Use: Occasional Hx Recreational Drug Use: No Hx Prescription Drug Abuse: No - Advance Directive Resuscitation Status: Full Code Family History Family History: Arthritis, DM, Hypertension, Malignancy. denies: CAD, COPD, CVA, Hyperlipidemia, Thyroid Disfunction Parental Family History Reviewed: Yes - Family history of diabetes mellitus Children Family History Reviewed: Yes Sibling(s) Family History Reviewed.: Yes Medication/Allergy Home Medications: Ibuprofen [Motrin 800 mg Tablet] 800 mg PO Q8HP PRN #20 tablet 02/13/17 Oxycodone HCl/Acetaminophen [Percocet 5-325 mg Tablet] 1 tab PO Q8HP PRN #5 tablet 08/28/17 Allergies/Adverse Reactions: iodine Allergy (Verified 03/25/19 15:37) Review of Systems Constitutional: ABSENT: fever(s), headache(s), night sweats Eyes: ABSENT: visual disturbances Ears: ABSENT: hearing changes Nose, Mouth, and Throat: ABSENT: sore throat Cardiovascular: ABSENT: dyspnea on exertion, edema, orthropnea, palpitations Respiratory: ABSENT: dyspnea, hemoptysis Genitourinary: ABSENT: dysuria, hematuria Musculoskeletal: PRESENT: other - Right lower leg pain/ swelling. ABSENT: joint swelling Neurological: ABSENT: as per HPI Psychiatric: ABSENT: anxiety, depression, homidical ideation, suicidal ideation Endocrine: ABSENT: cold intolerance, heat intolerance, polydipsia, polyuria Physical Exam Vital Signs: Temp Pulse Resp BP Pulse Ox 97.8 F 84 16 151/64 H 97 03/25/19 15:19 03/25/19 15:19 03/25/19 15:19 03/25/19 15:19 03/25/19 15:19 Intake & Output 03/24/19 03/25/19 03/26/19 06:59 06:59 06:59 Weight 109.316 kg General appearance: PRESENT: cooperative, mild distress, morbidly obese Head exam: PRESENT: atraumatic Eye exam: PRESENT: PERRLA Mouth exam: PRESENT: moist, neck supple, tongue midline Teeth exam: PRESENT: poor dentation Neck exam: ABSENT: carotid bruit, JVD, lymphadenopathy, thyromegaly Respiratory exam: PRESENT: decreased breath sounds Cardiovascular exam: PRESENT: RRR. ABSENT: diastolic murmur, rubs, systolic murmur GI/Abdominal exam: PRESENT: normal bowel sounds, soft. ABSENT: distended, guarding, mass, organolmegaly, rebound, tenderness Rectal exam: PRESENT: deferred Extremities exam: PRESENT: calf tenderness, other - Right lower leg was swollen especially the right cough area with increasing pain and tender palpation. Neurological exam: PRESENT: alert, awake, oriented to person, oriented to place, oriented to time, oriented to situation, CN II-XII grossly intact. ABSENT: motor sensory deficit Psychiatric exam: PRESENT: appropriate affect, normal mood. ABSENT: homicidal ideation, suicidal ideation Results Laboratory Results: 03/25/19 15:55 03/25/19 15:55 03/25/19 03/25/19 15:55 15:55 WBC 11.0 H RBC 4.49 Hgb 13.5 Hct 40.8 MCV 91 MCH 30.2 MCHC 33.2 RDW 13.2 Plt Count 136 L Seg Neutrophils % 61.1 Sodium 135.1 L Potassium 3.5 L Chloride 96 L Carbon Dioxide 30 Anion Gap 9 BUN 24 H Creatinine 0.93 Est GFR ( Amer) > 60 Glucose 103 Calcium 10.4 H Total Bilirubin 0.8 AST 39 H Alkaline Phosphatase 130 H Total Protein 8.1 Albumin 4.2 03/25/19 03/25/19 15:55 15:55 Creatine Kinase 232 H CK-MB (CK-2) 0.76 Troponin I < 0.012 Impressions: Venous Doppler Study 03/25/19 15:44 IMPRESSION: Acute deep vein thrombosis at the right leg at the distal femoral vein, popliteal vein, posterior tibial vein and peroneal vein. Assessment and Plan - Diagnosis (1) DVT (deep venous thrombosis) Is this a current diagnosis for this admission?: Yes (2) HTN (hypertension) Is this a current diagnosis for this admission?: No (3) Diabetes Qualifiers: Diabetes mellitus type: type 2 Is this a current diagnosis for this admission?: No (4) Morbid obesity Is this a current diagnosis for this admission?: No - Plan Summary Summary: 1.right lower leg DVT Patient is going to be admitted to [facility] for further management. She will be admitted under observation. To start on Xarelto 15 mg p.o. twice daily. GI prophylaxis initiated. CT of the chest is pending. Dietary consult was requested for obesity. 2.type 2 diabetes mellitus Patient has history of type 2 diabetes mellitus. Not on diabetic medications at home. To start insulin sliding scale before meals and at bedtime. Dietary consult will be requested. hemoGlobin A1c was requested. 3.hypertension Patient is given the history of hypertension. Blood pressure in the emergency room is around 117/80. Stable. To start her on hydralazine 10 mg IV every 6 as needed for systolic blood pressure more than 160. 4.morbid obesity Patient's BMI is more than 35.6. Diet exercise weight loss lifestyle modifications are discussed with the patient.
[2019-03-25 18:47] LABS: APPEARANCE,URINE CLEAR; BILIRUBIN,URINE NEGATIVE (NEGATIVE); COLOR,URINE STRAW; GLUCOSE, URINE NEGATIVE (NEGATIVE); KETONES,URINE NEGATIVE (NEGATIVE); LEUKOCYTE ESTERASE,URINE NEGATIVE (NEGATIVE); NITRITE,URINE NEGATIVE (NEGATIVE); PROTEIN,URINE NEGATIVE (NEGATIVE); URINE SPECIFIC GRAVITY 1.009; UROBILINOGEN,URINE NEGATIVE mg/dL (<2.0)
--- NOTE | 2019-03-25 19:21 | EKG REPORT ---
SEVERITY:- ABNORMAL ECG - SINUS RHYTHM LEFT VENTRICULAR HYPERTROPHY : Confirmed by: Stephanie Shi MD 25-Mar-2019 19:20:25
[2019-03-25] MEDS ORDERED: RIVAROXABAN 15 MG TABLET PO ONE (19:30)
--- NOTE | 2019-03-25 19:37 | RADIOLOGY REPORT (SQ) ---
EXAM DESCRIPTION: CTA CHEST COMPLETED DATE/TIME: 03/25/2019 6:46 pm REASON FOR STUDY: cough continue pain COMPARISON: None. TECHNIQUE: CT scan of the chest performed using helical scanning technique with dynamic intravenous contrast injection. Images reviewed with lung, soft tissue and bone windows. Reconstructed coronal and sagittal MPR images reviewed. Additional 3 dimensional post-processing performed to develop Maximal Intensity Projection images (OK P). All images stored on PACS. All CT scanners at this facility use dose modulation, iterative reconstruction, and/or weight based d osing when appropriate to reduce radiation dose to as low as reasonably achievable (ALARA). [facility]: Dose Right [facility]: CareDose [facility]: Dose Right [facility]: Teradose 4D [facility]: [employer] CONTRAST TYPE AND DOSE: contrast/concentration: Isovue 350.00 mg/ml; Total Contrast Delivered: 71.0 ml; Total Saline Delivered: 79.0 ml Contrast bolus optimized for the pulmonary arteries. Not diagnostic for the aorta. RENAL FUNCTION: GFR > 60. RADIATION DOSE: CT Rad equipment meets quality standard of care and radiation dose reduction techniq ues were employed. CTDIvol: 6.6 - 19.8 mGy. DLP: 633 mGy-cm. . LIMITATIONS: None. FINDINGS: LUNGS AND PLEURA: 3.6 cm cavitary mass in the posterior aspect of the right lower lobe. D ense consolidation in the parahilar regions of the right upper, right middle, and superior-medial bas ilar segments of the right lower lobe. Right middle lobe bronchus is mostly occluded. Small right p leural effusion. AORTA AND GREAT VESSELS: No aneurysm. Contrast bolus not optimized for the aorta. HEART: No pericardial effusion. No significant coronary artery calcifications. PULMONARY ARTERIES: No emboli visualized in the main pulmonary arteries or the segmental branches. HILAR AND MEDIASTINAL STRUCTURES: Right mediastinal-hilar lymphadenopathy. . HARDWARE: None in the chest. UPPER ABDOMEN: No significant findings. Limited exam. THYROID AND OTHER SOFT TISSUES: No masses. No adenopathy. BONES: No acute or significant finding. 3D MIPS: Confirm above findings. OTHER: No other significant finding. IMPRESSION: 3.6 cm cavitary mass in the posterior aspect of the right lower lobe. Dense consolidatio n in the parahilar regions of the right upper, right middle, and superior-medial basilar segments of the right lower lobe. Right middle lobe bronchus is mostly occluded. Small right pleural effusion. R ight mediastinal-hilar lymphadenopathy. No emboli visualized in the main pulmonary arteries or the segmental branches. COMMENT: Pulmonology consultation recommended. Quality ID # [id number]: Final reports with documentation of one or more dose reduction techniques (e.g., Au tomated exposure control, adjustment of the mA and/or kV according to patient size, use of iterative reconstruction technique) TECHNICAL DOCUMENTATION: JOB ID: [id number] [place]-72 2010 [employer]- All Rights Reserved Reading location - IP/workstation name: [employer]
[2019-03-25 19:51] LABS: CREATINE KINASE MB 0.89 ng/mL (<4.55)
[2019-03-25 19:56] LABS: TROPONIN I < 0.012 ng/mL
[2019-03-25] MEDS ORDERED: RIVAROXABAN 15 MG TABLET ONE (20:43)
[2019-03-25] MEDS: INSULIN REG, HUMAN 100 UNIT/ML 3 ML VIAL (PYX) SUBCUT SCH (23:36)
[2019-03-26 01:59] LABS: CREATINE KINASE MB 0.76 ng/mL (<4.55)
[2019-03-26 02:01] LABS: TROPONIN I < 0.012 ng/mL
[2019-03-26] MEDS: PANTOPRAZOLE SODIUM 20 MG TABLET.DR PO SCH (05:48)
[2019-03-26 07:09] LABS: ABSOLUTE LYMPHOCYTES (AUTO) 1.4 10^3/uL (0.5-4.7); ABSOLUTE MONOCYTES (AUTO) 0.5 10^3/uL (0.1-1.4); ABSOLUTE NEUT (AUTO) 6.2 10^3/uL (1.7-8.2); BASOPHILS % (AUTO) 0.3 % (0-2); HEMATOCRIT 38.1 % (36.0-47.0); HEMOGLOBIN 12.6 g/dL (12.0-15.5); LYMPHOCYTES % (AUTO) 17.5 % (13-45); MEAN CORPUSCULAR HEMOGLOBIN 29.9 pg (27.0-33.4); MEAN CORPUSCULAR HGB CONC 33.2 g/dL (32.0-36.0); MEAN CORPUSCULAR VOLUME 90 fl (80-97); MONOCYTES % (AUTO) 5.7 % (3-13); PLATELET COUNT 138 10^3/uL (150-450); RED BLOOD COUNT 4.23 10^6/uL (3.72-5.28); RED CELL DISTRIBUTION WIDTH 13.4 % (11.5-14.0); SEGMENTED NEUTROPHILS % (AUTO) 76.5 % (42-78); TOTAL CELLS COUNTED % (AUTO) 100 %; WHITE BLOOD COUNT 8.1 10^3/uL (4.0-10.5)
[2019-03-26 07:18] LABS: INTERNATIONAL RATION (INR) 1.53; PROTHROMBIN TIME 18.6 SEC (11.4-15.4)
[2019-03-26 07:33] LABS: ALBUMIN 3.8 g/dL (3.5-5.0); ALKALINE PHOSPHATASE 104 U/L (38-126); ANION GAP 13 (5-19); ASPARTATE AMINO TRANSFERASE 32 U/L (14-36); BILIRUBIN,DIRECT 0.2 mg/dL (0.0-0.4); BILIRUBIN,TOTAL 0.6 mg/dL (0.2-1.3); BLOOD UREA NITROGEN 22 mg/dL (7-20); CALCIUM 9.7 mg/dL (8.4-10.2); CARBON DIOXIDE 23 mmol/L (22-30); CHLORIDE 99 mmol/L (98-107); CHOLESTEROL 215.99 mg/dL (0-200); CREATINE KINASE 180 U/L (30-135); GLUCOSE 288 mg/dL (75-110); POTASSIUM 3.8 mmol/L (3.6-5.0); TOTAL PROTEIN 7.4 g/dL (6.3-8.2); TRIGLYCERIDES 82 mg/dL (<150)
[2019-03-26 07:43] LABS: CREATINE KINASE MB 0.62 ng/mL (<4.55); DIRECT LDL 145 mg/dL (<100)
[2019-03-26] MEDS ORDERED: PIPERACILLIN/TAZOBACTAM 3.375 GM VIAL IV SCH (07:45)
[2019-03-26 07:56] LABS: TROPONIN I < 0.012 ng/mL
[2019-03-26] MEDS: INSULIN REG, HUMAN 100 UNIT/ML 3 ML VIAL (PYX) SUBCUT SCH ×4 (09:22→21:41)
[2019-03-26] MEDS ORDERED: TUBERCULIN,PURIF.PROT.DERIV. 5 TU/0.1 ML TEST 1 ML VIAL ID ONE (10:00)
[2019-03-26] MEDS ORDERED: VANCOMYCIN HCL INJ 1000 MG VIAL IV SCH (10:00)
--- NOTE | 2019-03-26 10:25 | PDOC PROGRESS REPORT ---
Subjective Progress Note for:: 03/26/19 Subjective:: 64 year old female with history of type 2 diabetes mellitus, hypertension, morbid obesity came to the emergency room with right lower leg swelling and pain. She went to primary care clinic with complaints of right lower leg swelling and she was referred to the emergency room for further evaluation found to have extensive right lower leg DVT. Patient complaining of pain scale of 10 x 10. Denies any shortness of breath denies any chest pains. Vital signs are stable in the emergency room. Patient is allergic to iodine she is premedicated to have a CTA of the chest to rule out PE. Patient agreed to stay in the hospital for further management. 03/[id number]-yfwb-old female with history of morbid obesity, type 2 diabetes mellitus, hypertension admitted for right lower leg DVT CT of the chest was done shows 0.6 cm cavitary mass in the inner aspect of the right lower lobe. Dense consolidation in the perihilar regions of the right upper right middle and s uperior to medial basilar segments of the right lobe was found. Right middle lobe bronchus is mostly occluded. A small right pleural effusion. Plan to do the QuantiFERON test for TB and move her to the isolation room blood cultures already done started on IV Zosyn and vancomycin. Spoke to Dr. Gutierrez about a oncology consult and a consultation with Dr. Mendoza was placed for possible bronchoscopy . Unfortunately we do not have any pulmonology available until Wednesday. Reason For Visit: DVT Physical Exam Vital Signs: Temp Pulse Resp BP Pulse Ox 97.5 F 84 18 115/69 99 03/26/19 07:58 03/26/19 07:58 03/26/19 07:58 03/26/19 07:58 03/26/19 07:58 Intake & Output 03/25/19 03/26/19 03/27/19 06:59 06:59 06:59 Intake Total 0 Balance 0 Weight 108.3 kg General appearance: PRESENT: no acute distress, morbidly obese Head exam: PRESENT: atraumatic Eye exam: PRESENT: PERRLA Mouth exam: PRESENT: moist, tongue midline Teeth exam: PRESENT: poor dentation Neck exam: ABSENT: carotid bruit, JVD, lymphadenopathy, thyromegaly Respiratory exam: PRESENT: decreased breath sounds Cardiovascular exam: PRESENT: RRR. ABSENT: diastolic murmur, rubs, systolic murmur GI/Abdominal exam: PRESENT: normal bowel sounds, soft. ABSENT: distended, gua rding, mass, organolmegaly, rebound, tenderness Rectal exam: PRESENT: deferred Extremities exam: PRESENT: full ROM. ABSENT: calf tenderness, clubbing, pedal edema Neurological exam: PRESENT: alert, awake, oriented to person, oriented to place, oriented to time, oriented to situation, CN II-XII grossly intact. ABSENT: amandeep r sensory deficit Psychiatric exam: PRESENT: appropriate affect, normal mood. ABSENT: homicidal ideation, suicidal ideation Results Laboratory Results: 03/26/19 06:54 03/26/19 06:54 03/25/19 03/25/19 03/25/19 15:55 15:55 17:35 WBC 11.0 H RBC 4.49 Hgb 13.5 Hct 40.8 MCV 91 MCH 30.2 MCHC 33.2 RDW 13.2 Plt Count 136 L Seg Neutrophils % 61.1 Sodium 135.1 L Potassium 3.5 L Chloride 96 L Carbon Dioxide 30 Anion Gap 9 BUN 24 H Creatinine 0.93 Est GFR ( Amer) > 60 Glucose 103 Calcium 10.4 H Magnesium Total Bilirubin 0.8 AST 39 H Alkaline Phosphatase 130 H Total Protein 8.1 Albumin 4.2 Triglycerides Cholesterol LDL Cholesterol Direct VLDL Cholesterol HDL Cholesterol TSH Urine Color STRAW Urine Appearance CLEAR Urine pH 6.0 Ur Specific Sparks 1.009 Urine Protein NEGATIVE Urine Glucose (UA) NEGATIVE Urine Ketones NEGATIVE Urine Blood NEGATIVE Urine Nitrite NEGATIVE Ur Leukocyte Esterase NEGATIVE Urine WBC (Auto) 1 Urine RBC (Auto) 1 03/26/19 03/26/19 03/26/19 06:54 06:54 06:54 WBC 8.1 RBC 4.23 Hgb 12.6 Hct 38.1 MCV 90 MCH 29.9 MCHC 33.2 RDW 13.4 Plt Count 138 L Seg Neutrophils % 76.5 Sodium 134.6 L Potassium 3.8 Chloride 99 Carbon Dioxide 23 Anion Gap 13 BUN 22 H Creatinine 0.89 Est GFR ( Amer) > 60 Glucose 288 H Calcium 9.7 Magnesium 1.8 Total Bilirubin 0.6 AST 32 Alkaline Phosphatase 104 Total Protein 7.4 Albumin 3.8 Triglycerides 82 Cholesterol 215.99 H LDL Cholesterol Direct 145 H VLDL Cholesterol 16.0 HDL Cholesterol 53 TSH 0.10 L Urine Color Urine Appearance Urine pH Ur Specific Sparks Urine Protein Urine Glucose (UA) Urine Ketones Urine Blood Urine Nitrite Ur Leukocyte Esterase Urine WBC (Auto) Urine RBC (Auto) 03/25/19 03/25/19 03/25/19 15:55 15:55 18:40 Creatine Kinase 232 H 228 H CK-MB (CK-2) 0.76 Troponin I < 0.012 03/25/19 03/26/19 03/26/19 18:40 01:01 01:01 Creatine Kinase 256 H CK-MB (CK-2) 0.89 0.76 Troponin I < 0.012 < 0.012 03/26/19 03/26/19 06:54 06:54 Creatine Kinase 180 H CK-MB (CK-2) 0.62 Troponin I < 0.012 Impressions: Chest/Abdomen CTA 03/25/19 15:44 IMPRESSION: 3.6 cm cavitary mass in the posterior aspect of the right lower lobe. Dense consolidation in the parahilar regions of the right upper, right middle, and superior-medial basilar segments of the right lower lobe. Right middle lobe bronchus is mostly occluded. Small right pleural effusion. Right mediastinal-hilar lymphadenopathy. No emboli visualized in the main pulmonary arteries or the segmental branches. Venous Doppler Study 03/25/19 15:44 IMPRESSION: Acute deep vein thrombosis at the right leg at the distal femoral vein, popliteal vein, posterior tibial vein and peroneal vein. Assessment and Plan - Diagnosis (1) DVT (deep venous thrombosis) Is this a current diagnosis for this admission?: Yes (2) HTN (hypertension) Is this a current diagnosis for this admission?: No (3) Diabetes Qualifiers: Diabetes mellitus type: type 2 Is this a current diagnosis for this admission?: No (4) Morbid obesity Is this a current diagnosis for this admission?: No (5) Lung mass Is this a current diagnosis for this admission?: Yes (6) Pneumonia Is this a current diagnosis for this admission?: Yes - Plan Summary Summary: 1.right lower leg DVT Patient is going to be admitted to [facility] for further management. She will be admitted under observation. To start on Xarelto 15 mg p.o. twice daily. GI prophylaxis initiated. CT of the chest is pending. Dietary consult was requested for obesity. 10/2018-patient was started on Xarelto 15 mg p.o. twice daily. Plan is to continue the present management. 2.type 2 diabetes mellitus Patient has history of type 2 diabetes mellitus. Not on diabetic medications at home. To start insulin sliding scale before meals and at bedtime. Dietary consult will be requested. hemoGlobin A1c was requested. 03/25/2019-patient's latest blood sugar is 208. Hemoglobin A1c is 7.8. Presently on insulin sliding scale. Diet exercise weight loss lifestyle modifications are discussed with the patient. Plan to start her on Lantus 10 units twice a day. 3.hypertension Patient is given the history of hypertension. Blood pressure in the emergency room is around 117/80. Stable. To start her on hydralazine 10 mg IV every 6 as needed for systolic blood pressure more than 160. 03/26/2019-patient blood pressure today is 109/50. Plan is to continue the present management. 4.morbid obesity Patient's BMI is more than 35.6. Diet exercise weight loss lifestyle modifications are discussed with the patient. 5.lung mass T scan of the chest shows 3.6 cm lung mass cavitary mass discussed the plan with Dr. Alexsander Gutierrez he is going to see the patient either today or tomorrow. Also found to have a right middle bronchus totally occluded pulmonary consult was requested for possible bronchoscopy. Unfortunately we do not have any pulmonary available until next Wednesday. 6.Bilateral consolidated pneumonia Most likely secondary to community-acquired pneumonia. Most likely gram- positive organisms responsible. Blood cultures are requested sputum cultures are requested and started on IV Zosyn and vancomycin.
[2019-03-26] MEDS: PIPERACILLIN SODIUM/TAZOBACTAM 3.375 GM in NORMAL SALINE 100 ML IV SCH ×3 (11:51→21:40)
[2019-03-26] MEDS: RIVAROXABAN 15 MG TABLET PO SCH ×2 (11:53→17:02)
[2019-03-26] MEDS: VANCOMYCIN HCL 1,500 MG in DEXTROSE 5%-WATER 250 ML IV SCH ×2 (13:25→21:40)
[2019-03-26] MEDS: OXYCODONE-ACETAMINOPHEN 5-325 MG TABLET PO PRN ×2 (16:08→21:39)
[2019-03-27] MEDS: PIPERACILLIN SODIUM/TAZOBACTAM 3.375 GM in NORMAL SALINE 100 ML IV SCH ×4 (02:59→22:15)
[2019-03-27] MEDS: PANTOPRAZOLE SODIUM 20 MG TABLET.DR PO SCH (05:08)
[2019-03-27 07:21] LABS: ABSOLUTE EOSINOPHILS # (AUTO) 0.2 10^3/uL (0.0-0.6); ABSOLUTE LYMPHOCYTES (AUTO) 3.7 10^3/uL (0.5-4.7); ABSOLUTE MONOCYTES (AUTO) 0.7 10^3/uL (0.1-1.4); ABSOLUTE NEUT (AUTO) 5.8 10^3/uL (1.7-8.2); BASOPHILS % (AUTO) 0.4 % (0-2); EOSINOPHILS % (AUTO) 1.5 % (0-6); HEMATOCRIT 37.3 % (36.0-47.0); HEMOGLOBIN 12.3 g/dL (12.0-15.5); LYMPHOCYTES % (AUTO) 35.7 % (13-45); MEAN CORPUSCULAR HEMOGLOBIN 29.6 pg (27.0-33.4); MEAN CORPUSCULAR VOLUME 90 fl (80-97); MONOCYTES % (AUTO) 6.4 % (3-13); PLATELET COUNT 162 10^3/uL (150-450); RED BLOOD COUNT 4.16 10^6/uL (3.72-5.28); RED CELL DISTRIBUTION WIDTH 13.3 % (11.5-14.0); TOTAL CELLS COUNTED % (AUTO) 100 %; WHITE BLOOD COUNT 10.4 10^3/uL (4.0-10.5)
[2019-03-27] MEDS ORDERED: FUROSEMIDE 40 MG TABLET PO PRN (07:25)
[2019-03-27 07:56] LABS: ALBUMIN 3.5 g/dL (3.5-5.0); ALKALINE PHOSPHATASE 103 U/L (38-126); ANION GAP 11 (5-19); ASPARTATE AMINO TRANSFERASE 37 U/L (14-36); BILIRUBIN,DIRECT 0.2 mg/dL (0.0-0.4); BILIRUBIN,TOTAL 0.5 mg/dL (0.2-1.3); BLOOD UREA NITROGEN 20 mg/dL (7-20); CALCIUM 9.2 mg/dL (8.4-10.2); CARBON DIOXIDE 26 mmol/L (22-30); CHLORIDE 100 mmol/L (98-107); GLUCOSE 141 mg/dL (75-110); POTASSIUM 3.4 mmol/L (3.6-5.0); TOTAL PROTEIN 6.9 g/dL (6.3-8.2)
[2019-03-27] MEDS ORDERED: INFLUENZA QUAD (6MOS+) 2019-20 VAC 0.5 ML SYR IM ONE (08:00)
[2019-03-27] MEDS: OXYCODONE-ACETAMINOPHEN 5-325 MG TABLET PO PRN ×2 (08:03→22:15)
[2019-03-27] MEDS: INSULIN REG, HUMAN 100 UNIT/ML 3 ML VIAL (PYX) SUBCUT SCH ×4 (08:04→22:14)
--- NOTE | 2019-03-27 08:30 | PDOC PROGRESS REPORT ---
Subjective Progress Note for:: 03/27/19 Subjective:: 64 year old female with history of type 2 diabetes mellitus, hypertension, morbid obesity came to the emergency room with right lower leg swelling and pain. She went to primary care clinic with complaints of right lower leg swelling and she was referred to the emergency room for further evaluation found to have extensive right lower leg DVT. Patient complaining of pain scale of 10 x 10. Denies any shortness of breath denies any chest pains. Vital signs are stable in the emergency room. Patient is allergic to iodine she is premedicated to have a CTA of the chest to rule out PE. Patient agreed to stay in the hospital for further management. 03/26/[id number]-toiz-old female with history of morbid obesity, type 2 diabetes mellitus, hypertension admitted for right lower leg DVT CT of the chest was done shows 0.6 cm cavitary mass in the inner aspect of the right lower lobe. Dense consolidation in the perihilar regions of the right upper right middle and s uperior to medial basilar segments of the right lobe was found. Right middle lobe bronchus is mostly occluded. A small right pleural effusion. Plan to do the QuantiFERON test for TB and move her to the isolation room blood cultures already done started on IV Zosyn and vancomycin. Spoke to Dr. Gutierrez about a oncology consult and a consultation with Dr. Mendoza was placed for possible bronchoscopy . Unfortunately we do not have any pulmonology available until Wednesday. 03/27/[id number]-mnwb-old female with history of morbid obesity, type 2 diabetes mellitus, hypertension came with right lower leg swelling found to have right lower leg DVT. CT of the chest was negative for PE but found to have 3.6 cm cavitary lesion, right middle bronchus occlusion and bilateral consolidated p neumonia. Consultation with Dr. Gutierrez in consultation with Dr. Mendoza is requested. Patient may need a bronchoscopy. PPD was placed yesterday. QuantiFERON test for TB was requested. Patient is afebrile. No acute events in the last 24 hours. Reason For Visit: DVT Physical Exam Vital Signs: Temp Pulse Resp BP Pulse Ox 98.5 F 78 20 148/69 H 96 03/27/19 04:33 03/27/19 04:33 03/27/19 04:33 03/27/19 04:33 03/27/19 04:33 Intake & Output 03/26/19 03/27/19 03/28/19 06:59 06:59 06:59 Intake Total 0 1820 Balance 0 1820 Weight 108.3 kg 113.5 kg General appearance: PRESENT: no acute distress, morbidly obese Head exam: PRESENT: atraumatic Eye exam: PRESENT: PERRLA Mouth exam: PRESENT: moist, tongue midline Teeth exam: PRESENT: poor dentation Neck exam: ABSENT: carotid bruit, JVD, lymphadenopathy, thyromegaly Respiratory exam: PRESENT: decreased breath sounds Cardiovascular exam: PRESENT: RRR. ABSENT: diastolic murmur, rubs, systolic murmur GI/Abdominal exam: PRESENT: normal bowel sounds, soft. ABSENT: distended, guarding, mass, organolmegaly, rebound, tenderness Rectal exam: PRESENT: deferred Extremities exam: PRESENT: full ROM. ABSENT: calf tenderness, clubbing, pedal edema Neurological exam: PRESENT: alert, awake, oriented to person, oriented to place, oriented to time, oriented to situation, CN II-XII grossly intact. ABSENT: motor sensory deficit Psychiatric exam: PRESENT: appropriate affect, normal mood. ABSENT: homicidal i deation, suicidal ideation Results Laboratory Results: 03/27/19 05:49 03/27/19 05:49 03/27/19 03/27/19 05:49 05:49 WBC 10.4 RBC 4.16 Hgb 12.3 Hct 37.3 MCV 90 MCH 29.6 MCHC 33.0 RDW 13.3 Plt Count 162 Seg Neutrophils % 56.0 Sodium 136.6 L Potassium 3.4 L Chloride 100 Carbon Dioxide 26 Anion Gap 11 BUN 20 Creatinine 0.85 Est GFR ( Amer) > 60 Glucose 141 H Calcium 9.2 Magnesium 1.7 Total Bilirubin 0.5 AST 37 H Alkaline Phosphatase 103 Total Protein 6.9 Albumin 3.5 03/25/19 03/25/19 03/25/19 15:55 15:55 18:40 Creatine Kinase 232 H 228 H CK-MB (CK-2) 0.76 Troponin I < 0.012 03/25/19 03/26/19 03/26/19 18:40 01:01 01:01 Creatine Kinase 256 H CK-MB (CK-2) 0.89 0.76 Troponin I < 0.012 < 0.012 03/26/19 03/26/19 06:54 06:54 Creatine Kinase 180 H CK-MB (CK-2) 0.62 Troponin I < 0.012 Impressions: Chest/Abdomen CTA 03/25/19 15:44 IMPRESSION: 3.6 cm cavitary mass in the posterior aspect of the right lower lobe. Dense consolidation in the parahilar regions of the right upper, right middle, and superior-medial basilar segments of the right lower lobe. Right middle lobe bronchus is mostly occluded. Small right pleural effusion. Right mediastinal-hilar lymphadenopathy. No emboli visualized in the main pulmonary arteries or the segmental branches. Venous Doppler Study 03/25/19 15:44 IMPRESSION: Acute deep vein thrombosis at the right leg at the distal femoral vein, popliteal vein, posterior tibial vein and peroneal vein. Assessment and Plan - Diagnosis (1) DVT (deep venous thrombosis) Is this a current diagnosis for this admission?: Yes (2) HTN (hypertension) Is this a current diagnosis for this admission?: No (3) Diabetes Qualifiers: Diabetes mellitus type: type 2 Is this a current diagnosis for this admission?: No (4) Morbid obesity Is this a current diagnosis for this admission?: No (5) Lung mass Is this a current diagnosis for this admission?: Yes (6) Pneumonia Is this a current diagnosis for this admission?: Yes - Plan Summary Summary: 1.right lower leg DVT Patient is going to be admitted to [facility] for further management. She will be admitted under observation. To start on Xarelto 15 mg p.o. twice daily. GI prophylaxis initiated. CT of the chest is pending. Dietary consult was requested for obesity. 03/26/2019-patient was started on Xarelto 15 mg p.o. twice daily. Plan is to continue the present management. 03/27/2019-patient admitted with right lower leg DVT presently on Xarelto 15 [address] twice daily. [address] of the chest was negative for PE. 2.type 2 diabetes mellitus Patient has history of type 2 diabetes mellitus. Not on diabetic medications at home. To start insulin sliding scale before meals and at bedtime. Dietary consult will be requested. hemoGlobin A1c was requested. 03/26/2019-patient's latest blood sugar is 208. Hemoglobin A1c is 7.8. Presently on insulin sliding scale. Diet exercise weight loss lifestyle modifications are discussed with the patient. Plan to start her on Lantus 10 units twice a day. 03/27/2019-patient latest blood sugar is 52 and hemoglobin A1c 7.8. Patient is presently on Lantus 10 units twice a day and insulin sliding scale before meals and at bedtime. Plan is to continue the present management. 3.hypertension Patient is given the history of hypertension. Blood pressure in the emergency room is around 117/80. Stable. To start her on hydralazine 10 mg IV every 6 as needed for systolic blood pressure more than 160. 03/26/2019-patient blood pressure today is 109/50. Plan is to continue the present management. 03/27/2019-patient blood pressure today is 148/70. Stable. Plan to continue the present management. 4.morbid obesity Patient's BMI is more than 35.6. Diet exercise weight loss lifestyle modifications are discussed with the patient. 5.lung mass cT scan of the chest shows 3.6 cm lung mass cavitary mass discussed the plan wit Dr. Alexsander Gutierrez he is going to see the patient either today or tomorrow. Also found to have a right middle bronchus totally occluded pulmonary consult was requested for possible bronchoscopy. Unfortunately we do not have any pulmonary available until next Wednesday. 03/27/2019-CT chest shows 3.6 cm lung cavitary mass consultation with Dr. Gutierrez was requested and a right middle bronchus is close to total occlusion consultation with Dr. Mendoza was requested probably patient may need a bron choscopy tomorrow. PPD was placed yesterday and QuantiFERON test for TB was done. Patient is in isolation. 6.Bilateral consolidated pneumonia Most likely secondary to community-acquired pneumonia. Most likely gram- positive organisms responsible. Blood cultures are requested sputum cultures are requested and started on IV Zosyn and vancomycin. 03/27/2019-patient admitted with a lateral consolidated pneumonia blood cultures are negative. Presently on Zosyn and vancomycin. Most likely community- acquired pneumonia and possible organism most likely gram-positive.
--- NOTE | 2019-03-27 09:20 | PDOC CONSULTATION ---
Consultation Consult Date: 03/27/19 Attending physician:: MICHELLE BURR Provider Consulted: CLAY GARVIN Consult reason:: Newly diagnosed lung mass in the setting of right lower extremity DVT History of Present Illness Admission Date/PCP: 03/25/19 18:25 МАРИНА SPANGLER MD Patient complains of: Right lower extremity pain and swelling as well as cough History of Present Illness: VLADIMIR LUCERO is a 64 year old female with about a [id number] history of tobacco who quit about 3 years ago, presents with swelling and pain of the right lower extremity that has been ongoing for about 3 to 4 days, ultimately she was seen in the ED, and she has an extensive right lower extremity DVT. She was admitted by the hospitalist team who did CTA of the chest which indicated right hilar, mediastinal adenopathy as well as a right lower lobe cavitary lesion 3.6 cm. We are consulted to help out with this. She has had cough now for about 6 months and had a couple episodes of hemoptysis in the last 48 hours. She has not had any weight loss. She does have pain in the right side of the lower back and chest at times with the cough. She was treated as an outpatient for pneumonia and bronchitis. On CT of the chest she also has a postobstructive pneumonia. Past Medical History Cardiac Medical History: Reports: Hypertension Endocrine Medical History: Reports: Diabetes Mellitus Type 2 Musculoskeltal Medical History: Reports: Arthritis Past Surgical History Past Surgical History: Reports: Cholecystectomy, Hysterectomy Social History Lives with: Family Smoking Status: Former Smoker Cigarettes Packs Per Day: 1 Electronic Cigarette use?: No Number of Years Smokin Last Time Smoked: 3 years ago Frequency of Alcohol Use: None Hx Recreational Drug Use: No Drugs: None Hx Prescription Drug Abuse: No - Advance Directive Resuscitation Status: Full Code Family History Family History: Arthritis, DM, Hypertension, Malignancy. denies: CAD, COPD, CVA, Hyperlipidemia, Thyroid Disfunction Parental Family History Reviewed: Yes Children Family History Reviewed: Yes Sibling(s) Family History Reviewed.: Yes Medication/Allergy Home Medications: Acetaminophen with Codeine [Tylenol with Codeine #3 Tablet] 1 tab PO Q6HP PRN 03/26/19 Allopurinol [Zyloprim 300 mg Tablet] 300 mg PO DAILY 03/26/19 Celecoxib [Celebrex 200 mg Capsule] 200 mg PO BIDBS 03/26/19 Furosemide [Lasix 40 mg Tablet] 40 mg PO DAILYP PRN 03/26/19 Gabapentin [Neurontin 400 mg Capsule] 400 mg PO Q8 03/26/19 Glimepiride [Amaryl 4 mg Tablet] 4 mg PO BID 03/26/19 Linaclotide [Linzess 145 Mcg Capsule] 145 mcg PO DAILY 03/26/19 Losartan Potassium [Cozaar 100 mg Tablet] 100 mg PO DAILY 03/26/19 Metformin HCl [Metformin HCl ER] 1,000 mg PO BIDBS 03/26/19 Oxycodone HCl/Acetaminophen [Percocet 10-325 mg Tablet] 1 tab PO Q8HP PRN 03/26/19 Ranitidine HCl [Zantac] 150 mg PO BID 03/26/19 Valsartan/Hydrochlorothiazide [Diovan Hct 160-12.5 mg Tab] 1 tab PO DAILY 03/26/19 Allergies/Adverse Reactions: iodine Allergy (Verified 03/25/19 15:37) Review of Systems Constitutional: ABSENT: chills, fever(s), headache(s), weight gain, weight loss Eyes: ABSENT: visual disturbances Ears: ABSENT: hearing changes Cardiovascular: ABSENT: chest pain, dyspnea on exertion, edema, orthropnea, palpitations Respiratory: ABSENT: cough, hemoptysis Gastrointestinal: ABSENT: abdominal pain, constipation, diarrhea, hematemesis, hematochezia, nausea, vomiting Genitourinary: ABSENT: dysuria, hematuria Musculoskeletal: ABSENT: joint swelling Integumentary: ABSENT: rash, wounds Neurological: ABSENT: abnormal gait, abnormal speech, confusion, dizziness, focal weakness, syncope Psychiatric: ABSENT: anxiety, depression, homidical ideation, suicidal ideation Endocrine: ABSENT: cold intolerance, heat intolerance, polydipsia, polyuria Hematologic/Lymphatic: ABSENT: easy bleeding, easy bruising Physical Exam Vital Signs: Temp Pulse Resp BP Pulse Ox 97.8 F 78 18 129/64 H 95 03/27/19 08:00 03/27/19 08:00 03/27/19 08:00 03/27/19 08:00 03/27/19 08:00 Intake & Output 03/26/19 03/27/19 03/28/19 06:59 06:59 06:59 Intake Total 0 1820 Balance 0 1820 Weight 108.3 kg 113.5 kg General appearance: PRESENT: no acute distress, well-developed, well-nourished Head exam: PRESENT: atraumatic, normocephalic Eye exam: PRESENT: conjunctiva pink, EOMI, PERRLA. ABSENT: scleral icterus Ear exam: PRESENT: normal external ear exam Mouth exam: PRESENT: moist, tongue midline Neck exam: ABSENT: carotid bruit, JVD, lymphadenopathy, thyromegaly Respiratory exam: PRESENT: clear to auscultation shivam. ABSENT: rales, rhonchi, wheezes Cardiovascular exam: PRESENT: RRR. ABSENT: diastolic murmur, rubs, systolic murmur Pulses: PRESENT: normal dorsalis pedis pul Vascular exam: PRESENT: normal capillary refill GI/Abdominal exam: PRESENT: normal bowel sounds, soft. ABSENT: distended, guarding, mass, organolmegaly, rebound, tenderness Rectal exam: PRESENT: deferred Extremities exam: PRESENT: full ROM. ABSENT: calf tenderness, clubbing, pedal edema Neurological exam: PRESENT: alert, awake, oriented to person, oriented to place, oriented to time, oriented to situation, CN II-XII grossly intact. ABSENT: motor sensory deficit Psychiatric exam: PRESENT: appropriate affect, normal mood. ABSENT: homicidal ideation, suicidal ideation Skin exam: PRESENT: dry, intact, warm. ABSENT: cyanosis, rash Results Laboratory Results: 03/27/19 05:49 03/27/19 05:49 03/27/19 03/27/19 05:49 05:49 WBC 10.4 RBC 4.16 Hgb 12.3 Hct 37.3 MCV 90 MCH 29.6 MCHC 33.0 RDW 13.3 Plt Count 162 Seg Neutrophils % 56.0 Sodium 136.6 L Potassium 3.4 L Chloride 100 Carbon Dioxide 26 Anion Gap 11 BUN 20 Creatinine 0.85 Est GFR ( Amer) > 60 Glucose 141 H Calcium 9.2 Magnesium 1.7 Total Bilirubin 0.5 AST 37 H Alkaline Phosphatase 103 Total Protein 6.9 Albumin 3.5 03/25/19 03/25/19 03/25/19 15:55 15:55 18:40 Creatine Kinase 232 H 228 H CK-MB (CK-2) 0.76 Troponin I < 0.012 03/25/19 03/26/19 03/26/19 18:40 01:01 01:01 Creatine Kinase 256 H CK-MB (CK-2) 0.89 0.76 Troponin I < 0.012 < 0.012 03/26/19 03/26/19 06:54 06:54 Creatine Kinase 180 H CK-MB (CK-2) 0.62 Troponin I < 0.012 Impressions: Chest/Abdomen CTA 03/25/19 15:44 IMPRESSION: 3.6 cm cavitary mass in the posterior aspect of the right lower lobe. Dense consolidation in the parahilar regions of the right upper, right middle, and superior-medial basilar segments of the right lower lobe. Right middle lobe bronchus is mostly occluded. Small right pleural effusion. Right mediastinal-hilar lymphadenopathy. No emboli visualized in the main pulmonary arteries or the segmental branches. Venous Doppler Study 03/25/19 15:44 IMPRESSION: Acute deep vein thrombosis at the right leg at the distal femoral vein, popliteal vein, posterior tibial vein and peroneal vein. Status: Image reviewed by me Assessment & Plan - Diagnosis (1) Lung mass Is this a current diagnosis for this admission?: Yes Plan: Concerning for primary lung cancer, has hilar mediastinal adenopathy, needs bronchoscopy but patient does not want to get it done here. So would recommend continued antibiotics for the next 24 hours and then getting home on an oral regimen, I am going to see her next week and I will begin making her an appointment with Dr. yolis Skinner for bronchoscopy. (2) DVT (deep venous thrombosis) Qualifiers: DVT location: lower extremity Affected thrombotic vein of extremity: f emoral Chronicity: acute Laterality: right Qualified Code(s): I82.411 - Acute embolism and thrombosis of right femoral vein Is this a current diagnosis for this admission?: Yes Plan: Extensive right lower extremity DVT, agree with Xarelto 15 mg twice daily for 21 days then 20 mg daily thereafter she will need lifelong therapy for now. - Time Time Spent: Greater than 70 Minutes - Inpatient Certification Based on my medical assessment, after consideration of the patient's comorbidities, presenting symptoms, or acuity I expect that the services needed warrant INPATIENT care.: Yes I certify that my determination is in accordance with my understanding of Medicare's requirements for reasonable and necessary INPATIENT services [42 CFR 412.3e].: Yes Medical Necessity: Need For IV Fluids, Need for IV Antibiotics, Risk of Complication if Not Cared For in Hospital
[2019-03-27] MEDS ORDERED: (PENDING PHARMACY ID) (Linaclotide 145 MCG) PO SCH (10:00)
[2019-03-27] MEDS: RIVAROXABAN 15 MG TABLET PO SCH ×2 (10:20→17:45)
[2019-03-27] MEDS: ALLOPURINOL 300 MG TABLET PO SCH (10:20)
[2019-03-27] MEDS: LOSARTAN POTASSIUM 50 MG TABLET PO SCH (10:20)
[2019-03-27] MEDS: GLIMEPIRIDE 4 MG TABLET PO SCH ×2 (10:20→17:45)
[2019-03-27] MEDS: VANCOMYCIN HCL 1,500 MG in DEXTROSE 5%-WATER 250 ML IV SCH ×2 (10:20→22:48)
[2019-03-27] MEDS: GABAPENTIN 400 MG CAPSULE PO SCH ×2 (14:12→22:15)
[2019-03-28] MEDS: PIPERACILLIN SODIUM/TAZOBACTAM 3.375 GM in NORMAL SALINE 100 ML IV SCH ×4 (03:46→21:24)
[2019-03-28] MEDS: GABAPENTIN 400 MG CAPSULE PO SCH ×3 (06:10→21:23)
[2019-03-28] MEDS: PANTOPRAZOLE SODIUM 20 MG TABLET.DR PO SCH (06:10)
[2019-03-28 07:35] LABS: ABSOLUTE BASOPHILS # (AUTO) 0.1 10^3/uL (0.0-0.2); ABSOLUTE EOSINOPHILS # (AUTO) 0.2 10^3/uL (0.0-0.6); ABSOLUTE LYMPHOCYTES (AUTO) 3.2 10^3/uL (0.5-4.7); ABSOLUTE MONOCYTES (AUTO) 0.8 10^3/uL (0.1-1.4); ABSOLUTE NEUT (AUTO) 4.5 10^3/uL (1.7-8.2); BASOPHILS % (AUTO) 0.6 % (0-2); EOSINOPHILS % (AUTO) 2.8 % (0-6); HEMATOCRIT 35.7 % (36.0-47.0); HEMOGLOBIN 11.9 g/dL (12.0-15.5); LYMPHOCYTES % (AUTO) 36.7 % (13-45); MEAN CORPUSCULAR HEMOGLOBIN 30.1 pg (27.0-33.4); MEAN CORPUSCULAR HGB CONC 33.5 g/dL (32.0-36.0); MEAN CORPUSCULAR VOLUME 90 fl (80-97); MONOCYTES % (AUTO) 8.7 % (3-13); PLATELET COUNT 174 10^3/uL (150-450); RED BLOOD COUNT 3.96 10^6/uL (3.72-5.28); RED CELL DISTRIBUTION WIDTH 13.2 % (11.5-14.0); SEGMENTED NEUTROPHILS % (AUTO) 51.2 % (42-78); TOTAL CELLS COUNTED % (AUTO) 100 %; WHITE BLOOD COUNT 8.7 10^3/uL (4.0-10.5)
[2019-03-28 07:58] LABS: ALBUMIN 3.2 g/dL (3.5-5.0); ALKALINE PHOSPHATASE 92 U/L (38-126); ANION GAP 8 (5-19); ASPARTATE AMINO TRANSFERASE 32 U/L (14-36); BILIRUBIN,DIRECT 0.1 mg/dL (0.0-0.4); BILIRUBIN,TOTAL 0.3 mg/dL (0.2-1.3); BLOOD UREA NITROGEN 16 mg/dL (7-20); CALCIUM 9.2 mg/dL (8.4-10.2); CARBON DIOXIDE 26 mmol/L (22-30); CHLORIDE 104 mmol/L (98-107); GLUCOSE 111 mg/dL (75-110); POTASSIUM 3.6 mmol/L (3.6-5.0); TOTAL PROTEIN 6.5 g/dL (6.3-8.2)
[2019-03-28] MEDS: INSULIN REG, HUMAN 100 UNIT/ML 3 ML VIAL (PYX) SUBCUT SCH ×4 (08:26→21:23)
--- NOTE | 2019-03-28 08:38 | PDOC PROGRESS REPORT ---
Subjective Progress Note for:: 03/28/19 Subjective:: No acute events overnight Reason For Visit: DVT Physical Exam Vital Signs: Temp Pulse Resp BP Pulse Ox 98.4 F 67 16 115/55 L 95 03/28/19 03:38 03/28/19 07:00 03/28/19 03:38 03/28/19 03:38 03/28/19 03:38 Intake & Output 03/27/19 03/28/19 03/29/19 06:59 06:59 06:59 Intake Total 1820 1430 Balance 1820 1430 Weight 113.5 kg 113.5 kg General appearance: PRESENT: no acute distress, well-developed, well-nourished Head exam: PRESENT: atraumatic, normocephalic Eye exam: PRESENT: conjunctiva pink, EOMI, PERRLA. ABSENT: scleral icterus Ear exam: PRESENT: normal external ear exam Mouth exam: PRESENT: moist, tongue midline Neck exam: ABSENT: carotid bruit, JVD, lymphadenopathy, thyromegaly Respiratory exam: PRESENT: clear to auscultation shivam. ABSENT: rales, rhonchi, wheezes Cardiovascular exam: PRESENT: RRR. ABSENT: diastolic murmur, rubs, systolic murmur Pulses: PRESENT: normal dorsalis pedis pul Vascular exam: PRESENT: normal capillary refill GI/Abdominal exam: PRESENT: normal bowel sounds, soft. ABSENT: distended, guarding, mass, organolmegaly, rebound, tenderness Rectal exam: PRESENT: deferred Extremities exam: PRESENT: full ROM. ABSENT: calf tenderness, clubbing, pedal edema Neurological exam: PRESENT: alert, awake, oriented to person, oriented to place, oriented to time, oriented to situation, CN II-XII grossly intact. ABSENT: motor sensory deficit Psychiatric exam: PRESENT: appropriate affect, normal mood. ABSENT: homicidal ideation, suicidal ideation Skin exam: PRESENT: dry, intact, warm. ABSENT: cyanosis, rash Results Laboratory Results: 03/28/19 06:09 03/28/19 06:09 03/28/19 03/28/19 06:09 06:09 WBC 8.7 RBC 3.96 Hgb 11.9 L Hct 35.7 L MCV 90 MCH 30.1 MCHC 33.5 RDW 13.2 Plt Count 174 Seg Neutrophils % 51.2 Sodium 137.5 Potassium 3.6 Chloride 104 Carbon Dioxide 26 Anion Gap 8 BUN 16 Creatinine 0.84 Est GFR ( Amer) > 60 Glucose 111 H Calcium 9.2 Magnesium 1.8 Total Bilirubin 0.3 AST 32 Alkaline Phosphatase 92 Total Protein 6.5 Albumin 3.2 L 03/25/19 03/25/19 03/25/19 15:55 15:55 18:40 Creatine Kinase 232 H 228 H CK-MB (CK-2) 0.76 Troponin I < 0.012 03/25/19 03/26/19 03/26/19 18:40 01:01 01:01 Creatine Kinase 256 H CK-MB (CK-2) 0.89 0.76 Troponin I < 0.012 < 0.012 03/26/19 03/26/19 06:54 06:54 Creatine Kinase 180 H CK-MB (CK-2) 0.62 Troponin I < 0.012 Impressions: Chest/Abdomen CTA 03/25/19 15:44 IMPRESSION: 3.6 cm cavitary mass in the posterior aspect of the right lower lobe. Dense consolidation in the parahilar regions of the right upper, right middle, and superior-medial basilar segments of the right lower lobe. Right middle lobe bronchus is mostly occluded. Small right pleural effusion. Right med iastinal-hilar lymphadenopathy. No emboli visualized in the main pulmonary arteries or the segmental branches. Venous Doppler Study 03/25/19 15:44 IMPRESSION: Acute deep vein thrombosis at the right leg at the distal femoral vein, popliteal vein, posterior tibial vein and peroneal vein. Assessment & Plan - Diagnosis (1) Lung mass Is this a current diagnosis for this admission?: Yes Plan: Ultimately patient will need bronchoscopy with biopsy, we will set that up as an outpatient per patient request. (2) DVT (deep venous thrombosis) Qualifiers: DVT location: lower extremity Affected thrombotic vein of extremity: femoral Chronicity: acute Laterality: right Qualified Code(s): I82.411 - Acute embolism and thrombosis of right femoral vein Is this a current diagnosis for this admission?: Yes Plan: Continue with Xarelto 15 mg twice daily for 21 days then transition to 20 mg daily. - Time Time Spent with patient: 25-34 minutes
[2019-03-28] MEDS: GLIMEPIRIDE 4 MG TABLET PO SCH ×2 (10:20→17:03)
[2019-03-28] MEDS: OXYCODONE-ACETAMINOPHEN 5-325 MG TABLET PO PRN ×2 (10:20→21:23)
[2019-03-28] MEDS: ALLOPURINOL 300 MG TABLET PO SCH (10:20)
[2019-03-28] MEDS: RIVAROXABAN 15 MG TABLET PO SCH ×2 (10:20→17:03)
[2019-03-28] MEDS: LOSARTAN POTASSIUM 50 MG TABLET PO SCH (11:31)
[2019-03-28] MEDS: VANCOMYCIN HCL 1,500 MG in DEXTROSE 5%-WATER 250 ML IV SCH ×2 (11:31→21:23)
--- NOTE | 2019-03-28 12:59 | PDOC PROGRESS REPORT ---
Subjective Progress Note for:: 03/28/19 Subjective:: 64 year old female with history of type 2 diabetes mellitus, hypertension, morbid obesity came to the emergency room with right lower leg swelling and pain. She went to primary care clinic with complaints of right lower leg swelling and she was referred to the emergency room for further evaluation found to have extensive right lower leg DVT. Patient complaining of pain scale of 10 x 10. Denies any shortness of breath denies any chest pains. Vital signs are stable in the emergency room. Patient is allergic to iodine she is premedicated to have a CTA of the chest to rule out PE. Patient agreed to stay in the hospital for further management. 03/28/2019. No acute events overnight. Patient comfortably resting in bed in no apparent distress, complaining of right lower extremity persistent pain and swelling, denies any shortness of breath, chills, nausea, vomiting, chest pain, diarrhea, constipation or any urinary symptoms. Reason For Visit: DVT Physical Exam Vital Signs: Temp Pulse Resp BP Pulse Ox 98.4 F 67 16 115/55 L 95 03/28/19 03:38 03/28/19 07:00 03/28/19 03:38 03/28/19 03:38 03/28/19 03:38 Intake & Output 03/27/19 03/28/19 03/29/19 06:59 06:59 06:59 Intake Total 1820 1430 Balance 1820 1430 Weight 113.5 kg 113.5 kg General appearance: PRESENT: obese Head exam: PRESENT: atraumatic, normocephalic Respiratory exam: PRESENT: clear to auscultation shivam. ABSENT: rales, rhonchi, wheezes Cardiovascular exam: PRESENT: RRR. ABSENT: diastolic murmur, rubs, systolic murmur GI/Abdominal exam: PRESENT: normal bowel sounds, soft. ABSENT: distended, guarding, mass, organolmegaly, rebound, tenderness Musculoskeletal exam: PRESENT: tenderness - Right lower extremity swelling and diffuse TTP. No sign of infection or active discharge. Neurovascularly intact. Neurological exam: PRESENT: alert, awake, oriented to person, oriented to place, oriented to time, oriented to situation, CN II-XII grossly intact. ABSENT: motor sensory deficit Results Laboratory Results: 03/28/19 06:09 03/27/19 03/28/19 05:49 06:09 WBC 8.7 RBC 3.96 Hgb 11.9 L Hct 35.7 L MCV 90 MCH 30.1 MCHC 33.5 RDW 13.2 Plt Count 174 Seg Neutrophils % 51.2 Sodium 136.6 L Potassium 3.4 L Chloride 100 Carbon Dioxide 26 Anion Gap 11 BUN 20 Creatinine 0.85 Est GFR ( Amer) > 60 Glucose 141 H Calcium 9.2 Magnesium 1.7 Total Bilirubin 0.5 AST 37 H Alkaline Phosphatase 103 Total Protein 6.9 Albumin 3.5 03/25/19 03/25/19 03/25/19 15:55 15:55 18:40 Creatine Kinase 232 H 228 H CK-MB (CK-2) 0.76 Troponin I < 0.012 03/25/19 03/26/19 03/26/19 18:40 01:01 01:01 Creatine Kinase 256 H CK-MB (CK-2) 0.89 0.76 Troponin I < 0.012 < 0.012 03/26/19 03/26/19 06:54 06:54 Creatine Kinase 180 H CK-MB (CK-2) 0.62 Troponin I < 0.012 Impressions: Chest/Abdomen CTA 03/25/19 15:44 IMPRESSION: 3.6 cm cavitary mass in the posterior aspect of the right lower lobe. Dense consolidation in the parahilar regions of the right upper, right mi ddle, and superior-medial basilar segments of the right lower lobe. Right middle lobe bronchus is mostly occluded. Small right pleural effusion. Right mediastinal-hilar lymphadenopathy. No emboli visualized in the main pulmonary arteries or the segmental branches. Venous Doppler Study 03/25/19 15:44 IMPRESSION: Acute deep vein thrombosis at the right leg at the distal femoral vein, popliteal vein, posterior tibial vein and peroneal vein. Assessment and Plan - Diagnosis (1) DVT of proximal leg (deep vein thrombosis) Qualifiers: Chronicity: acute Laterality: right Qualified Code(s): I82.4Y1 - Acute embolism and thrombosis of unspecified deep veins of right proximal lower extremity Is this a current diagnosis for this admission?: Yes (2) Diabetes Qualifiers: Diabetes mellitus type: type 2 Is this a current diagnosis for this admission?: Yes (3) HTN (hypertension) Is this a current diagnosis for this admission?: Yes (4) Morbid obesity Is this a current diagnosis for this admission?: Yes (5) Lung mass Is this a current diagnosis for this admission?: Yes (6) Pneumonia Is this a current diagnosis for this admission?: Yes - Plan Summary Summary: Subjective Progress Note for:: 03/28/19 Subjective:: 64 year old female with history of type 2 diabetes mellitus, hypertension, morbid obesity came to the emergency room with right lower leg swelling and pain. She went to primary care clinic with complaints of right lower leg swelling and she was referred to the emergency room for further evaluation found to have extensive right lower leg DVT. Patient complaining of pain scale of 10 x 10. Denies any shortness of breath denies any chest pains. Vital signs are stable in the emergency room. Patient is allergic to iodine she is premedicated to have a CTA of the chest to rule out PE. Patient agreed to stay in the hospital for further management. 03/28/2019. No acute events overnight. Patient comfortably resting in bed in no apparent distress, complaining of right lower extremity persistent pain and swelling, denies any shortness of breath, chills, nausea, vomiting, chest pain, diarrhea, constipation or any urinary symptoms. Reason For Visit: DVT Physical Exam Vital Signs: Temp Pulse Resp BP Pulse Ox 98.4 F 67 16 115/55 L 95 03/28/19 03:38 03/28/19 07:00 03/28/19 03:38 03/28/19 03:38 03/28/19 03:38 Intake & Output 03/27/19 03/28/19 03/29/19 06:59 06:59 06:59 Intake Total 1820 1430 Balance 1820 1430 Weight 113.5 kg 113.5 kg General appearance: PRESENT: obese Head exam: PRESENT: atraumatic, normocephalic Respiratory exam: PRESENT: clear to auscultation shivam. ABSENT: rales, rhonchi, wheezes Cardiovascular exam: PRESENT: RRR. ABSENT: diastolic murmur, rubs, systolic murmur GI/Abdominal exam: PRESENT: normal bowel sounds, soft. ABSENT: distended, guarding, mass, organolmegaly, rebound, tenderness Musculoskeletal exam: PRESENT: tenderness - Right lower extremity swelling and diffuse TTP. No sign of infection or active discharge. Neurovascularly intact. Neurological exam: PRESENT: alert, awake, oriented to person, oriented to place, oriented to time, oriented to situation, CN II-XII grossly intact. ABSENT: motor sensory deficit Results Laboratory Results: 03/28/19 06:09 03/27/19 03/28/19 05:49 06:09 WBC 8.7 RBC 3.96 Hgb 11.9 L Hct 35.7 L MCV 90 MCH 30.1 MCHC 33.5 RDW 13.2 Plt Count 174 Seg Neutrophils % 51.2 Sodium 136.6 L Potassium 3.4 L Chloride 100 Carbon Dioxide 26 Anion Gap 11 BUN 20 Creatinine 0.85 Est GFR ( Amer) > 60 Glucose 141 H Calcium 9.2 Magnesium 1.7 Total Bilirubin 0.5 AST 37 H Alkaline Phosphatase 103 Total Protein 6.9 Albumin 3.5 03/25/19 03/25/19 03/25/19 15:55 15:55 18:40 Creatine Kinase 232 H 228 H CK-MB (CK-2) 0.76 Troponin I < 0.012 03/25/19 03/26/19 03/26/19 18:40 01:01 01:01 Creatine Kinase 256 H CK-MB (CK-2) 0.89 0.76 Troponin I < 0.012 < 0.012 03/26/19 03/26/19 06:54 06:54 Creatine Kinase 180 H CK-MB (CK-2) 0.62 Troponin I < 0.012 Impressions: Chest/Abdomen CTA 03/25/19 15:44 IMPRESSION: 3.6 cm cavitary mass in the posterior aspect of the right lower lobe. Dense consolidation in the parahilar regions of the right upper, right middle, and superior-medial basilar segments of the right lower lobe. Right middle lobe bronchus is mostly occluded. Small right pleural effusion. Right mediastinal-hilar lymphadenopathy. No emboli visualized in the main pulmonary arteries or the segmental branches. Venous Doppler Study 03/25/19 15:44 IMPRESSION: Acute deep vein thrombosis at the right leg at the distal femoral vein, popliteal vein, posterior tibial vein and peroneal vein. Assessment and Plan - Diagnosis (1) DVT of proximal leg (deep vein thrombosis) Qualifiers: Chronicity: acute Laterality: right Qualified Code(s): I82.4Y1 - Acute embolism and thrombosis of unspecified deep veins of right proximal lower extremity Is this a current diagnosis for this admission?: Yes (2) Diabetes Qualifiers: Diabetes mellitus type: type 2 Is this a current diagnosis for this admission?: No (3) HTN (hypertension) Is this a current diagnosis for this admission?: Yes (4) Morbid obesity Is this a current diagnosis for this admission?: Yes (5) Lung mass Is this a current diagnosis for this admission?: Yes (6) Pneumonia Is this a current diagnosis for this admission?: Yes - Plan Summary Summary: (1) DVT (deep venous thrombosis) Currently on Xarelto. Plan is to continue 15 mg twice daily for another 21 days then transition to 20 mg p.o. daily. Outpatient PCP and hematology follow-up. Dr. Gutierrez oncologist on [place], outpatient follow-up is planned. 2) HTN (hypertension) [place] [id number]. Currently on losartan 100 mg p.o. daily, furosemide 40 mg p.o. daily. Continue current meds, adjust meds as needed. Outpatient PCP follow-up. (3) Diabetes Controlled. Hemoglobin A1c 7.8. Home meds are: Metformin thousand milligrams p.o. twice daily. Glimepiride 4 mg p.o. twice daily. Currently on glimepiride 4 mg p.o. twice daily, and insulin regular sliding scale. Continue diabetic diet, Accu-Chek, sliding scale insulin. Restart home meds upon discharge. Outpatient PCP follow-up. (4) Morbid obesity TSH 0.1. Will obtain T3-T4. Diet and lifestyle modification recommended. (5) Lung mass CT chest on admission showed 3.6 cm cavitary mass in the posterior aspect of the right lower lobe. There is consolidation in the perihilar region of the right upper, right middle and superior medial basilar segments of the right lower lobe. Right middle lobe bronchus mostly occluded. Right mediastinal hilar lymphadenopathy. No PE. Dr. Gutierrez from oncology has been consulted. Patient needs a lung biopsy which be done as out patient at [facility] where patient prefers to do her bronchoscopy. Dr Gutierrez oncologist on board. Recommendations noted. Patient is currently on isolation. PPD placed on 03/27/2019. Pending results. QuantiFERON gold study pending. Unsure if this result will be available soon as it is a send out. Plan is to DC patient after PPD resulted in, switch patient to oral antibiotics and follow-up with Dr. Gutierrez as outpatient for possible outpatient bronchoscopy and biopsy. (6) Pneumonia Day 4 IV antibiotics. Day 4 Zosyn. Day 4 vancomycin. Cultures negative x2048 hours.
[2019-03-29] MEDS: PIPERACILLIN SODIUM/TAZOBACTAM 3.375 GM in NORMAL SALINE 100 ML IV SCH ×2 (02:12→08:44)
[2019-03-29] MEDS: GABAPENTIN 400 MG CAPSULE PO SCH (06:00)
[2019-03-29] MEDS: PANTOPRAZOLE SODIUM 20 MG TABLET.DR PO SCH (06:00)
--- NOTE | 2019-03-29 08:05 | PDOC PROGRESS REPORT ---
Subjective Progress Note for:: 03/29/19 Subjective:: Patient feels ready to go home but still being fully ruled out for TB before discharge, being managed by hospitalist team Reason For Visit: DVT Physical Exam Vital Signs: Temp Pulse Resp BP Pulse Ox 99.7 F 73 22 H 140/67 H 95 03/29/19 00:10 03/29/19 07:00 03/29/19 00:10 03/29/19 00:10 03/29/19 00:10 Intake & Output 03/28/19 03/29/19 03/30/19 06:59 06:59 06:59 Intake Total 1780 900 Balance 1780 900 Weight 113.5 kg 112 kg General appearance: PRESENT: no acute distress, well-developed, well-nourished Head exam: PRESENT: atraumatic, normocephalic Eye exam: PRESENT: conjunctiva pink, EOMI, PERRLA. ABSENT: scleral icterus Ear exam: PRESENT: normal external ear exam Mouth exam: PRESENT: moist, tongue midline Neck exam: ABSENT: carotid bruit, JVD, lymphadenopathy, thyromegaly Respiratory exam: PRESENT: clear to auscultation shivam. ABSENT: rales, rhonchi, wheezes Cardiovascular exam: PRESENT: RRR. ABSENT: diastolic murmur, rubs, systolic murmur Pulses: PRESENT: normal dorsalis pedis pul Vascular exam: PRESENT: normal capillary refill GI/Abdominal exam: PRESENT: normal bowel sounds, soft. ABSENT: distended, guarding, mass, organolmegaly, rebound, tenderness Rectal exam: PRESENT: deferred Extremities exam: PRESENT: full ROM. ABSENT: calf tenderness, clubbing, pedal edema Neurological exam: PRESENT: alert, awake, oriented to person, oriented to place, oriented to time, oriented to situation, CN II-XII grossly intact. ABSENT: motor sensory deficit Psychiatric exam: PRESENT: appropriate affect, normal mood. ABSENT: homicidal ideation, suicidal ideation Skin exam: PRESENT: dry, intact, warm. ABSENT: cyanosis, rash Results Laboratory Results: 03/28/19 06:09 03/28/19 06:09 03/25/19 03/25/19 03/25/19 15:55 15:55 18:40 Creatine Kinase 232 H 228 H CK-MB (CK-2) 0.76 Troponin I < 0.012 03/25/19 03/26/19 03/26/19 18:40 01:01 01:01 Creatine Kinase 256 H CK-MB (CK-2) 0.89 0.76 Troponin I < 0.012 < 0.012 03/26/19 03/26/19 06:54 06:54 Creatine Kinase 180 H CK-MB (CK-2) 0.62 Troponin I < 0.012 Impressions: Chest/Abdomen CTA 03/25/19 15:44 IMPRESSION: 3.6 cm cavitary mass in the posterior aspect of the right lower lobe. Dense consolidation in the parahilar regions of the right upper, right middle, and superior-medial basilar segments of the right lower lobe. Right middle lobe bronchus is mostly occluded. Small right pleural effusion. Right mediastinal-hilar lymphadenopathy. No emboli visualized in the main pulmonary arteries or the segmental branches. Venous Doppler Study 03/25/19 15:44 IMPRESSION: Acute deep vein thrombosis at the right leg at the distal femoral vein, popliteal vein, posterior tibial vein and peroneal vein. Assessment & Plan - Diagnosis (1) Lung mass Is this a current diagnosis for this admission?: Yes Plan: Plan for outpatient bronchoscopy, we are trying to set that up now (2) DVT (deep venous thrombosis) Qualifiers: DVT location: lower extremity Affected thrombotic vein of extremity: femoral Chronicity: acute Laterality: right Qualified Code(s): I82.411 - Acute embolism and thrombosis of right femoral vein Is this a current diagnosis for this admission?: Yes Plan: Continue with current and anticoagulation plan - Time Time Spent with patient: 15-24 minutes
[2019-03-29] MEDS: INSULIN REG, HUMAN 100 UNIT/ML 3 ML VIAL (PYX) SUBCUT SCH ×2 (08:36→11:17)
[2019-03-29] MEDS: OXYCODONE-ACETAMINOPHEN 5-325 MG TABLET PO PRN (08:51)
[2019-03-29] MEDS: ALLOPURINOL 300 MG TABLET PO SCH (09:17)
[2019-03-29] MEDS: LOSARTAN POTASSIUM 50 MG TABLET PO SCH (09:17)
[2019-03-29] MEDS: GLIMEPIRIDE 4 MG TABLET PO SCH (09:17)
[2019-03-29] MEDS: VANCOMYCIN HCL 1,500 MG in DEXTROSE 5%-WATER 250 ML IV SCH (09:18)
[2019-03-29] MEDS: RIVAROXABAN 15 MG TABLET PO SCH (09:18)
[2019-03-29 11:22] VITALS: BP 115/55
--- NOTE | 2019-03-29 12:08 | PDOC DISCHARGE SUMMARY ---
Impression - Admit/DC Date/PCP Admission Date/Primary Care Provider: 03/25/19 18:25 МАРИНА SPANGLER MD Discharge Date: 03/29/19 - Discharge Diagnosis (1) DVT (deep venous thrombosis) Is this a current diagnosis for this admission?: Yes (2) HTN (hypertension) Is this a current diagnosis for this admission?: Yes (3) Diabetes Is this a current diagnosis for this admission?: Yes (4) Morbid obesity Is this a current diagnosis for this admission?: Yes (5) Lung mass Is this a current diagnosis for this admission?: Yes (6) Pneumonia Is this a current diagnosis for this admission?: Yes - Assessment Summary: Subjective Progress Note for:: 03/28/19 Subjective:: 64 year old female with history of type 2 diabetes mellitus, hypertension, morbid obesity came to the emergency room with right lower leg swelling and pain. She went to primary care clinic with complaints of right lower leg swelling and she was referred to the emergency room for further evaluation found to have extensive right lower leg DVT. Patient complaining of pain scale of 10 x 10. Denies any shortness of breath denies any chest pains. Vital signs are stable in the emergency room. Patient is allergic to iodine she is premedicated to have a CTA of the chest to rule out PE. Patient agreed to stay in the hospital for further management. 03/28/2019. No acute events overnight. Patient comfortably resting in bed in no apparent distress, complaining of right lower extremity persistent pain and swelling, denies any shortness of breath, chills, nausea, vomiting, chest pain, diarrhea, constipation or any urinary symptoms. Reason For Visit: DVT Physical Exam Vital Signs: Temp Pulse Resp BP Pulse Ox 98.4 F 67 16 115/55 L 95 03/28/19 03:38 03/28/19 07:00 03/28/19 03:38 03/28/19 03:38 03/28/19 03:38 Intake & Output 03/27/19 03/28/19 03/29/19 06:59 06:59 06:59 Intake Total 1820 1430 Balance 1820 1430 Weight 113.5 kg 113.5 kg General appearance: PRESENT: obese Head exam: PRESENT: atraumatic, normocephalic Respiratory exam: PRESENT: clear to auscultation shivam. ABSENT: rales, rhonchi, wheezes Cardiovascular exam: PRESENT: RRR. ABSENT: diastolic murmur, rubs, systolic murmur GI/Abdominal exam: PRESENT: normal bowel sounds, soft. ABSENT: distended, guarding, mass, organolmegaly, rebound, tenderness Musculoskeletal exam: PRESENT: tenderness - Right lower extremity swelling and diffuse TTP. No sign of infection or active discharge. Neurovascularly intact. Neurological exam: PRESENT: alert, awake, oriented to person, oriented to place, oriented to time, oriented to situation, CN II-XII grossly intact. ABSENT: motor sensory deficit Results Laboratory Results: 03/28/19 06:09 03/27/19 03/28/19 05:49 06:09 WBC 8.7 RBC 3.96 Hgb 11.9 L Hct 35.7 L MCV 90 MCH 30.1 MCHC 33.5 RDW 13.2 Plt Count 174 Seg Neutrophils % 51.2 Sodium 136.6 L Potassium 3.4 L Chloride 100 Carbon Dioxide 26 Anion Gap 11 BUN 20 Creatinine 0.85 Est GFR ( Amer) > 60 Glucose 141 H Calcium 9.2 Magnesium 1.7 Total Bilirubin 0.5 AST 37 H Alkaline Phosphatase 103 Total Protein 6.9 Albumin 3.5 03/25/19 03/25/19 03/25/19 15:55 15:55 18:40 Creatine Kinase 232 H 228 H CK-MB (CK-2) 0.76 Troponin I < 0.012 03/25/19 03/26/19 03/26/19 18:40 01:01 01:01 Creatine Kinase 256 H CK-MB (CK-2) 0.89 0.76 Troponin I < 0.012 < 0.012 03/26/19 03/26/19 06:54 06:54 Creatine Kinase 180 H CK-MB (CK-2) 0.62 Troponin I < 0.012 Impressions: Chest/Abdomen CTA 03/25/19 15:44 IMPRESSION: 3.6 cm cavitary mass in the posterior aspect of the right lower lobe. Dense consolidation in the parahilar regions of the right upper, right middle, and superior-medial basilar segments of the right lower lobe. Right middle lobe bronchus is mostly occluded. Small right pleural effusion. Right mediastinal-hilar lymphadenopathy. No emboli visualized in the main pulmonary arteries or the segmental branches. Venous Doppler Study 03/25/19 15:44 IMPRESSION: Acute deep vein thrombosis at the right leg at the distal femoral vein, popliteal vein, posterior tibial vein and peroneal vein. Assessment and Plan - Diagnosis (1) DVT of proximal leg (deep vein thrombosis) Qualifiers: Chronicity: acute Laterality: right Qualified Code(s): I82.4Y1 - Acute embolism and thrombosis of unspecified deep veins of right proximal lower extremity Is this a current diagnosis for this admission?: Yes (2) Diabetes Qualifiers: Diabetes mellitus type: type 2 Is this a current diagnosis for this admission?: No (3) HTN (hypertension) Is this a current diagnosis for this admission?: Yes (4) Morbid obesity Is this a current diagnosis for this admission?: Yes (5) Lung mass Is this a current diagnosis for this admission?: Yes (6) Pneumonia Is this a current diagnosis for this admission?: Yes - Plan Summary Summary: (1) DVT (deep venous thrombosis) Currently on Xarelto. Plan is to continue 15 mg twice daily for another 21 days then transition to 20 mg p.o. daily. Outpatient PCP and hematology follow-up. Dr. Garvin oncologist [place], outpatient follow-up is planned. 03/29/2019-patient was admitted with right lower leg DVT started on Xarelto 15 mg p.o. twice daily prescription was given to take home patient was strongly advised to follow-up with Dr. Garvin next week for further management. 2) HTN (hypertension) Controlled. [place] 10176. Currently on losartan 100 mg p.o. daily, furosemide 40 mg p.o. daily. Continue current meds, adjust meds as needed. Outpatient PCP follow-up. 03/29/2019-patient blood pressure today is 140/67. Stable. (3) Diabetes Controlled. Hemoglobin A1c 7.8. Home meds are: Metformin thousand milligrams p.o. twice daily. Glimepiride 4 mg p.o. twice daily. Currently on glimepiride 4 mg p.o. twice daily, and insulin regular sliding scale. Continue diabetic diet, Accu-Chek, sliding scale insulin. Restart home meds upon discharge. Outpatient PCP follow-up. 03/29/2019-patient's hemoglobin A1c 7.9 at home she is on metformin thousand milligrams p.o. twice a day and glimepiride milligrams p.o. twice a day patient is advised to continue the medications diet exercise weight loss lifestyle mod ifications discussed with the patient. (4) Morbid obesity TSH 0.1. Will obtain T3-T4. Diet and lifestyle modification recommended. (5) Lung mass CT chest on admission showed 3.6 cm cavitary mass in the posterior aspect of the right lower lobe. There is consolidation in the perihilar region of the right upper, right middle and superior medial basilar segments of the right lower lobe. Right middle lobe bronchus mostly occluded. Right mediastinal hilar lymphadenopathy. No PE. Dr. Garvin from oncology has been consulted. Patient needs a lung biopsy which be done as out patient at [facility] where patient prefers to do her bronchoscopy. Dr Garvin oncologist on board. Recommendations noted. Patient is currently on isolation. PPD placed on 03/27/2019. Pending results. QuantiFERON gold study pending. Unsure if this result will be available soon as it is a send out. Plan is to DC patient after PPD resulted in, switch patient to oral antibiotics and follow-up with Dr. Garvin as outpatient for possible outpatient broncho scopy and biopsy. 03/29/2019-pound to have a 3.6 cm cavitary lesion consultation with Dr. Garvin was done he is going to follow-up the patient and arrange for outpatient bro nchoscopy in [place]. (6) Pneumonia Day 4 IV antibiotics. Day 4 Zosyn. Day 4 vancomycin. Cultures negative x2048 hours. 03/29/2019-initial CT scan suggestive of bilateral consolidated pneumonia he received 5 days of IV Zosyn and IV vancomycin cultures are negative so far. Patient is going home on levo floxacillin 500 mg p.o. daily for 10 days. - Additional Information Resuscitation Status: Full Code Discharge Diet: Diabetic Discharge Activity: Activity As Tolerated Referrals: МАРИНА SPANGLER MD [Primary Care Provider] - 04/03/19 3:30 pm CLAY GARVIN MD [ACTIVE STAFF] - 04/07/19 8:45 am Prescriptions: Levofloxacin [Levaquin 500 mg Tablet] 500 mg PO DAILY #10 tablet Rivaroxaban [Xarelto 15 mg Tablet] 15 mg PO BID #30 tablet Home Medications: Acetaminophen with Codeine [Tylenol with Codeine #3 Tablet] 1 tab PO Q6HP PRN 03/26/19 Allopurinol [Zyloprim 300 mg Tablet] 300 mg PO DAILY 03/26/19 Furosemide [Lasix 40 mg Tablet] 40 mg PO DAILYP PRN 03/26/19 Gabapentin [Neurontin 400 mg Capsule] 400 mg PO Q8 03/26/19 Glimepiride [Amaryl 4 mg Tablet] 4 mg PO BID 03/26/19 Linaclotide [Linzess 145 Mcg Capsule] 145 mcg PO DAILY 03/26/19 Losartan Potassium [Cozaar 100 mg Tablet] 100 mg PO DAILY 03/26/19 Metformin HCl [Metformin HCl ER] 1,000 mg PO BIDBS 03/26/19 Oxycodone HCl/Acetaminophen [Percocet 10-325 mg Tablet] 1 tab PO Q8HP PRN 03/26/19 Ranitidine HCl [Zantac] 150 mg PO BID 03/26/19 Valsartan/Hydrochlorothiazide [Diovan Hct 160-12.5 mg Tab] 1 tab PO DAILY 03/26/19 Levofloxacin [Levaquin 500 mg Tablet] 500 mg PO DAILY #10 tablet 03/29/19 Rivaroxaban [Xarelto 15 mg Tablet] 15 mg PO BID #30 tablet 03/29/19 History of Present Illiness History of Present Illness: VLADIMIR LUCERO is a 64 year old female with history of type 2 diabetes mellitus, hypertension, morbid obesity came to the emergency room with right lower leg swelling and pain. She went to primary care clinic with complaints of right lower leg swelling and she was referred to the emergency room for further evaluation found to have extensive right lower leg DVT. Patient complaining of pain scale of 10 x 10. Denies any shortness of breath denies any chest pains. Vital signs are stable in the emergency room. Patient is allergic to iodine she is premedicated to have a CTA of the chest to rule out PE. Patient agreed to stay in the hospital for further management. Hospital Course Hospital Course: 03/29/[id number]-ueax-old female came to the emergency room with right lower leg swelling and pain found to have a DVT CT of the chest shows 3.6 mm mass, bilateral consolidated pneumonia and occlusion of the right middle bronchus. Consultation with Dr. Garvin was requested patient requested to do the bronchoscopy as an outpatient. Blood cultures are negative. She was treated with IV vancomycin and Zosyn. QuantiFERON test was requested which is pending. PPD is negative. She is going home on levo floxacillin 500 mg p.o. daily for 10days. Physical Exam Vital Signs: Temp Pulse Resp BP Pulse Ox 98.1 F 76 18 115/55 L 97 03/29/19 11:19 03/29/19 11:19 03/29/19 11:19 03/29/19 11:19 03/29/19 11:19 Intake & Output 03/28/19 03/29/19 03/30/19 06:59 06:59 06:59 Intake Total 1780 1000 350 Balance 1780 1000 350 Weight 113.5 kg 112 kg General appearance: PRESENT: no acute distress, morbidly obese Head exam: PRESENT: atraumatic Eye exam: PRESENT: PERRLA Mouth exam: PRESENT: moist, tongue midline Teeth exam: PRESENT: poor dentation Neck exam: ABSENT: carotid bruit, JVD, lymphadenopathy, thyromegaly Respiratory exam: PRESENT: decreased breath sounds Cardiovascular exam: PRESENT: RRR. ABSENT: diastolic murmur, rubs, systolic murmur GI/Abdominal exam: PRESENT: normal bowel sounds, soft. ABSENT: distended, guarding, mass, organolmegaly, rebound, tenderness Rectal exam: PRESENT: deferred Extremities exam: PRESENT: full ROM. ABSENT: calf tenderness, clubbing, pedal edema Neurological exam: PRESENT: alert, awake, oriented to person, oriented to place, oriented to time, oriented to situation, CN II-XII grossly intact. ABSENT: motor sensory deficit Psychiatric exam: PRESENT: appropriate affect, normal mood. ABSENT: homicidal ideation, suicidal ideation Results Laboratory Results: WBC 8.7 10^3/uL (4.0-10.5) 03/28/19 06:09 RBC 3.96 10^6/uL (3.72-5.28) 03/28/19 06:09 Hgb 11.9 g/dL (12.0-15.5) L 03/28/19 06:09 Hct 35.7 % (36.0-47.0) L 03/28/19 06:09 MCV 90 fl (80-97) 03/28/19 06:09 MCH 30.1 pg (27.0-33.4) 03/28/19 06:09 MCHC 33.5 g/dL (32.0-36.0) 03/28/19 06:09 RDW 13.2 % (11.5-14.0) 03/28/19 06:09 Plt Count 174 10^3/uL (150-450) 03/28/19 06:09 Lymph % (Auto) 36.7 % (13-45) 03/28/19 06:09 Sampson % (Auto) 8.7 % (3-13) 03/28/19 06:09 Eos % (Auto) 2.8 % (0-6) 03/28/19 06:09 Baso % (Auto) 0.6 % (0-2) 03/28/19 06:09 Absolute Neuts (auto) 4.5 10^3/uL (1.7-8.2) 03/28/19 06:09 Absolute Lymphs (auto) 3.2 10^3/uL (0.5-4.7) 03/28/19 06:09 Absolute Monos (auto) 0.8 10^3/uL (0.1-1.4) 03/28/19 06:09 Absolute Eos (auto) 0.2 10^3/uL (0.0-0.6) 03/28/19 06:09 Absolute Basos (auto) 0.1 10^3/uL (0.0-0.2) 03/28/19 06:09 Seg Neutrophils % 51.2 % (42-78) 03/28/19 06:09 PT 18.6 SEC (11.4-15.4) H 03/26/19 06:54 INR 1.53 03/26/19 06:54 APTT 28.6 SEC (23.5-35.8) 03/25/19 15:55 Sodium 137.5 mmol/L (137-145) 03/28/19 06:09 Potassium 3.6 mmol/L (3.6-5.0) 03/28/19 06:09 Chloride 104 mmol/L (98-107) 03/28/19 06:09 Carbon Dioxide 26 mmol/L (22-30) 03/28/19 06:09 Anion Gap 8 (5-19) 03/28/19 06:09 BUN 16 mg/dL (7-20) 03/28/19 06:09 Creatinine 0.84 mg/dL (0.52-1.25) 03/28/19 06:09 Est GFR ( Amer) > 60 (>60) 03/28/19 06:09 Est GFR (MDRD) Non-Af > 60 (>60) 03/28/19 06:09 Glucose 111 mg/dL (75-110) H 03/28/19 06:09 POC Glucose 110 mg/dL (70-110) 03/29/19 08:35 Hemoglobin A1c % 7.8 % (4.7-6.0) H 03/26/19 06:54 Calcium 9.2 mg/dL (8.4-10.2) 03/28/19 06:09 Magnesium 1.8 mg/dL (1.6-2.3) 03/28/19 06:09 Total Bilirubin 0.3 mg/dL (0.2-1.3) 03/28/19 06:09 Direct Bilirubin 0.1 mg/dL (0.0-0.4) 03/28/19 06:09 Neonat Total Bilirubin Not Reportable 03/28/19 06:09 Neonat Direct Bilirubin Not Reportable 03/28/19 06:09 Neonat Indirect Bili Not Reportable 03/28/19 06:09 AST 32 U/L (14-36) 03/28/19 06:09 ALT 29 U/L (<35) 03/28/19 06:09 Alkaline Phosphatase 92 U/L (38-126) 03/28/19 06:09 Creatine Kinase 180 U/L (30-135) H 03/26/19 06:54 CK-MB (CK-2) 0.62 ng/mL (<4.55) 03/26/19 06:54 Troponin I < 0.012 ng/mL 03/26/19 06:54 Total Protein 6.5 g/dL (6.3-8.2) 03/28/19 06:09 Albumin 3.2 g/dL (3.5-5.0) L 03/28/19 06:09 Triglycerides 82 mg/dL (<150) 03/26/19 06:54 Cholesterol 215.99 mg/dL (0-200) H 03/26/19 06:54 LDL Cholesterol Direct 145 mg/dL (<100) H 03/26/19 06:54 VLDL Cholesterol 16.0 mg/dL (10-31) 03/26/19 06:54 HDL Cholesterol 53 mg/dL (>40) 03/26/19 06:54 TSH 0.10 uIU/mL (0.47-4.68) L 03/26/19 06:54 Urine Color STRAW 03/25/19 17:35 Urine Appearance CLEAR 03/25/19 17:35 Urine pH 6.0 (5.0-9.0) 03/25/19 17:35 Ur Specific Beaver 1.009 03/25/19 17:35 Urine Protein NEGATIVE mg/dL (NEGATIVE) 03/25/19 17:35 Urine Glucose (UA) NEGATIVE mg/dL (NEGATIVE) 03/25/19 17:35 Urine Ketones NEGATIVE mg/dL (NEGATIVE) 03/25/19 17:35 Urine Blood NEGATIVE (NEGATIVE) 03/25/19 17:35 Urine Nitrite NEGATIVE (NEGATIVE) 03/25/19 17:35 Urine Bilirubin NEGATIVE (NEGATIVE) 03/25/19 17:35 Urine Urobilinogen NEGATIVE mg/dL (<2.0) 03/25/19 17:35 Ur Leukocyte Esterase NEGATIVE (NEGATIVE) 03/25/19 17:35 Urine WBC (Auto) 1 /HPF 03/25/19 17:35 Urine RBC (Auto) 1 /HPF 03/25/19 17:35 U Hyaline Cast (Auto) 5 /LPF 03/25/19 17:35 Squamous Epi Cells Auto <1 /HPF 03/25/19 17:35 Urine Mucus (Auto) RARE /LPF 03/25/19 17:35 Urine Ascorbic Acid NEGATIVE (NEGATIVE) 03/25/19 17:35 Time Trough Drawn 212403/27/19 21:25 Vancomycin Trough 16.0 ug/mL (5.0-20.0) 03/27/19 21:25 03/25/19 03/25/19 03/26/19 15:55 18:40 01:01 CK-MB (CK-2) 0.76 0.89 0.76 Troponin I < 0.012 < 0.012 < 0.012 03/26/19 06:54 CK-MB (CK-2) 0.62 Troponin I < 0.012 Impressions: Chest/Abdomen CTA 03/25/19 15:44 IMPRESSION: 3.6 cm cavitary mass in the posterior aspect of the right lower lobe. Dense consolidation in the parahilar regions of the right upper, right middle, and superior-medial basilar segments of the right lower lobe. Right middle lobe bronchus is mostly occluded. Small right pleural effusion. Right mediastinal-hilar lymphadenopathy. No emboli visualized in the main pulmonary arteries or the segmental branches. Venous Doppler Study 03/25/19 15:44 IMPRESSION: Acute deep vein thrombosis at the right leg at the distal femoral vein, popliteal vein, posterior tibial vein and peroneal vein. Plan Plan of Treatment: Patient was strongly advised to follow-up with Dr. Garvin in the next 3 to 5 days. Also advised to continue p.o. Levaquin 500 mg p.o. daily for 10 days. Time Spent: Greater than 30 Minutes Stroke Is this a Stroke Patient?: No Acute Heart Failure - Is this a Heart Failure Patient?: No
--- NOTE | 2019-04-19 13:12 | PDOC CONSULTATION ---
Consultation Consult Date: 03/27/19 Attending physician:: MICHELLE BURR Provider Consulted: FELICITY RIOS Consult reason:: Dyspnea\Leg pain History of Present Illness Admission Date/PCP: 03/25/19 18:25 МАРИНА SPANGLER MD History of Present Illness: VLADIMIR LUCERO is a 64 year old female presented to the ED with some shortness of breath and increased swelling in her leg subsequent ultrasound showed DVT CTA did not reveal any pulmonary emboli. She admits to shortness of breath as well as dyspnea on exertion and dry nonproductive cough no hemoptysis PPD negative dates unknown no history of chronic lung disease as a child or adolescent she admits to exposure to passive smoke as a child as well as an adult. She admits to smoking a pack a day for 50 years but has not smoked in the last 3 years. She denies any occupational occupational exposure to potential respiratory toxins no pets no recent travel. No angina-like chest pain sleeps on 3 pillows no nocturnal cough intermittent episodes of edema. She denies snoring restless sleep unrestful sleep or excessive daytime somnolence. Past Medical History Cardiac Medical History: Reports: Hypertension Endocrine Medical History: Reports: Diabetes Mellitus Type 2, Obesity Musculoskeltal Medical History: Reports: Arthritis Skin Medical History: Denies: Psoriasis Hematology: Denies: Sickle Cell Disease Infectious Medical History: Denies: HIV Past Surgical History Past Surgical History: Reports: Cholecystectomy, Hysterectomy Social History Information Source: Patient, [facility] Records Lives with: Family Smoking Status: Former Smoker Cigarettes Packs Per Day: 1 Number of Years Smokin Last Time Smoked: 3 years ago Frequency of Alcohol Use: None Hx Recreational Drug Use: No Drugs: None Hx Prescription Drug Abuse: No Do you have pets?: No Have you had any respiratory illnesses as a child?: No Have you been exposed to any sick contacts recently?: No Have you had any recent respiratory illnesses?: No Have you travelled outside of [place] in the past 12 months?: No - Advance Directive Resuscitation Status: Full Code Family History Family History: Arthritis, DM, Hypertension, Malignancy. denies: CAD, COPD, CVA, Hyperlipidemia, Thyroid Disfunction Parental Family History Reviewed: Yes Children Family History Reviewed: Yes Sibling(s) Family History Reviewed.: Yes Medication/Allergy Home Medications: Acetaminophen with Codeine [Tylenol with Codeine #3 Tablet] 1 tab PO Q6HP PRN 03/26/19 Allopurinol [Zyloprim 300 mg Tablet] 300 mg PO DAILY 03/26/19 Furosemide [Lasix 40 mg Tablet] 40 mg PO DAILYP PRN 03/26/19 Gabapentin [Neurontin 400 mg Capsule] 400 mg PO Q8 03/26/19 Glimepiride [Amaryl 4 mg Tablet] 4 mg PO BID 03/26/19 Linaclotide [Linzess 145 Mcg Capsule] 145 mcg PO DAILY 03/26/19 Losartan Potassium [Cozaar 100 mg Tablet] 100 mg PO DAILY 03/26/19 Metformin HCl [Metformin HCl ER] 1,000 mg PO BIDBS 03/26/19 Oxycodone HCl/Acetaminophen [Percocet 10-325 mg Tablet] 1 tab PO Q8HP PRN 03/26/19 Ranitidine HCl [Zantac] 150 mg PO BID 03/26/19 Valsartan/Hydrochlorothiazide [Diovan Hct 160-12.5 mg Tab] 1 tab PO DAILY 03/26/19 Levofloxacin [Levaquin 500 mg Tablet] 500 mg PO DAILY #10 tablet 03/29/19 Rivaroxaban [Xarelto 15 mg Tablet] 15 mg PO BID #30 tablet 03/29/19 Allergies/Adverse Reactions: iodine Allergy (Verified 03/25/19 15:37) Review of Systems All systems: reviewed and no additional remarkable complaints except as stated Physical Exam Vital Signs: Temp Pulse Resp BP Pulse Ox 97.8 F 78 18 129/64 H 95 03/27/19 08:00 03/27/19 08:00 03/27/19 08:00 03/27/19 08:00 03/27/19 08:00 Intake & Output 03/26/19 03/27/19 03/28/19 06:59 06:59 06:59 Intake Total 0 1820 Balance 0 1820 Weight 108.3 kg 113.5 kg General appearance: PRESENT: no acute distress, disheveled, obese Head exam: PRESENT: atraumatic, normocephalic Eye exam: PRESENT: conjunctiva pale, EOMI. ABSENT: nystagmus, periorbital swelling Mouth exam: PRESENT: dry mucosa, neck supple, tongue midline Neck exam: ABSENT: carotid bruit, full ROM, JVD, lymphadenopathy, meningismus, tenderness, thyromegaly, tracheal deviation, tracheostomy, other Respiratory exam: PRESENT: decreased breath sounds, prolonged expiratory phas, rhonchi, symmetrical, unlabored, wheezes. ABSENT: retraction, stridor, tachypnea Cardiovascular exam: PRESENT: RRR, +S1, +S2. ABSENT: tachycardia Pulses: PRESENT: normal radial pulses GI/Abdominal exam: PRESENT: soft. ABSENT: guarding, mass, rebound, tenderness Extremities exam: PRESENT: tenderness. ABSENT: calf tenderness, joint swelling Musculoskeletal exam: ABSENT: deformity Neurological exam: PRESENT: awake Skin exam: PRESENT: dry, warm Results Laboratory Results: 03/27/19 05:49 03/27/19 05:49 03/27/19 03/27/19 05:49 05:49 WBC 10.4 RBC 4.16 Hgb 12.3 Hct 37.3 MCV 90 MCH 29.6 MCHC 33.0 RDW 13.3 Plt Count 162 Seg Neutrophils % 56.0 Sodium 136.6 L Potassium 3.4 L Chloride 100 Carbon Dioxide 26 Anion Gap 11 BUN 20 Creatinine 0.85 Est GFR ( Amer) > 60 Glucose 141 H Calcium 9.2 Magnesium 1.7 Total Bilirubin 0.5 AST 37 H Alkaline Phosphatase 103 Total Protein 6.9 Albumin 3.5 03/25/19 03/25/19 03/25/19 15:55 15:55 18:40 Creatine Kinase 232 H 228 H CK-MB (CK-2) 0.76 Troponin I < 0.012 03/25/19 03/26/19 03/26/19 18:40 01:01 01:01 Creatine Kinase 256 H CK-MB (CK-2) 0.89 0.76 Troponin I < 0.012 < 0.012 03/26/19 03/26/19 06:54 06:54 Creatine Kinase 180 H CK-MB (CK-2) 0.62 Troponin I < 0.012 Impressions: Chest/Abdomen CTA 03/25/19 15:44 IMPRESSION: 3.6 cm cavitary mass in the posterior aspect of the right lower lobe. Dense consolidation in the parahilar regions of the right upper, right middle, and superior-medial basilar segments of the right lower lobe. Right middle lobe bronchus is mostly occluded. Small right pleural effusion. Right mediastinal-hilar lymphadenopathy. No emboli visualized in the main pulmonary arteries or the segmental branches. Venous Doppler Study 03/25/19 15:44 IMPRESSION: Acute deep vein thrombosis at the right leg at the distal femoral vein, popliteal vein, posterior tibial vein and peroneal vein. Assessment & Plan - Diagnosis (1) DVT (deep venous thrombosis) Qualifiers: DVT location: lower extremity Affected thrombotic vein of extremity: femoral Chronicity: acute Laterality: right Qualified Code(s): I82.411 - Acute embolism and thrombosis of right femoral vein Is this a current diagnosis for this admission?: Yes Plan: No evidence of PE continue anticoagulation as you are doing (2) HTN (hypertension) Is this a current diagnosis for this admission?: Yes Plan: Stable at this time (3) Lung mass Is this a current diagnosis for this admission?: Yes Plan: Obviously needs a tissue.biopsy I believe this can be achieved with bronchoscopy would like to hold off just until patients are acute episode brought him as outpatient (4) Morbid obesity Is this a current diagnosis for this admission?: Yes Plan: Consider nutritional consult - Time Time Spent: 50 to 70 Minutes
== END 2019-03-29 12:00 | disposition home or self-care (01) ==
LOC: ER 14:58 → EH 18:25 → 3N 22:29 → INTOOBSV 03-28 09:58 → OBSVTOIN 03-28 09:58 → INTOOBSV 03-28 09:59
PROVIDERS: ADMIT Internal Medicine; ATTEND Internal Medicine
DX: I82.411 Acute embolism and thrombosis of right femoral vein (principal); I82.431 Acute embolism and thrombosis of right popliteal vein; I82.441 Acute embolism and thrombosis of right tibial vein; I82.451 Acute embolism and thrombosis of right peroneal vein; J18.9 Pneumonia, unspecified organism; I10 Essential (primary) hypertension; E11.9 Type 2 diabetes mellitus without complications; E66.01 Morbid (severe) obesity due to excess calories; R91.8 Other nonspecific abnormal finding of lung field; R59.0 Localized enlarged lymph nodes; M19.90 Unspecified osteoarthritis, unspecified site; Z68.35 Body mass index [BMI] 35.0-35.9, adult; Z23 Encounter for immunization; Z79.899 Other long term (current) drug therapy; Z87.891 Personal history of nicotine dependence; Z82.61 Family history of arthritis; Z83.3 Family history of diabetes mellitus; Z80.9 Family history of malignant neoplasm, unspecified; Z82.49 Family history of ischemic heart disease and other diseases of the circulatory system; Z91.041 Radiographic dye allergy status; Z79.84 Long term (current) use of oral hypoglycemic drugs
CPT/HCPCS: 93005; 99285; 96374; 96375; 86480; 36415 ×4; 87040; 82553 ×2; 82962 ×5; 82550 ×2; 83735 ×3; 84443; 85025 ×4; 85610 ×2; 85730; 80053 ×4; 81001; 84484 ×2; 80202; 83036; 80061; 93971; 71275; 90686; 93010; G0378 ×6; J1200; J2930; J1815 ×4; J3490 ×11; J7060 ×4; J7050 ×4; J3370 ×4; S0028; J2543 ×4

== ENCOUNTER → 2019-04-17 | Outpatient (CLI) | payer OTHER ==
--- NOTE | 2019-04-17 13:07 | RADIOLOGY REPORT (SQ) ---
EXAM DESCRIPTION: MRI HEAD COMBO COMPLETED DATE/TIME: 04/17/2019 9:57 am REASON FOR STUDY: (C34.31)MALIGNANT NEOPLASM OF LOWER LOBE, RIGHT BRONCHUS OR LUNG C34.31 MALIGNANT NEOPLASM OF LOWER LOBE, RIGHT BRONCHUS OR L COMPARISON: None. TECHNIQUE: Multiplanar imaging includes noncontrasted T1, T2, FLAIR, diffusion with ADC map and post gadolinium contrast T1 sequences. Images stored on PACS. CONTRAST TYPE AND DOSE: 20 mL Dotarem. RENAL FUNCTION: Not indicated. ACR Type II contrast agent associated with few, if any, unconfounded cases of NSF LIMITATIONS: None. FINDINGS: ANATOMY: No anomalies. Normal vascular flow voids. Pituitary fossa normal. CSF SPACES: Normal in size and contour. No hemorrhage. CEREBRUM: Sulci and gyri normal in size and contour. Normal white matter signal on FLAIR imaging. No evidence of hemorrhage, mass, or extraaxial fluid collection. No abnormal enhancement post contrast. POSTERIOR FOSSA: No signal alteration. No hemorrhage. No edema, masses, or mass effect. Internal abdirashid tory canals, cerebellopontine angles, mastoids normal. No enhancing lesions. No abnormal enhancement post contrast. DIFFUSION IMAGING: Negative for acute or subacute infarction. ORBITS: No masses. Globes normal. PARANASAL SINUSES: No fluid levels. Mucosa normal. OTHER: No other significant finding. IMPRESSION: No MR abnormality of the brain. No abnormal intracranial contrast enhancement. No evid ence of intracranial metastatic disease. EVIDENCE OF ACUTE STROKE: NO. TECHNICAL DOCUMENTATION: JOB ID: [id number] [employer]- All Rights Reserved Reading location - IP/workstation name: [email or web address]
== END ==
LOC: RAD 08:26
PROVIDERS: ATTEND Internal Medicine
DX: C34.31 Malignant neoplasm of lower lobe, right bronchus or lung (principal)
CPT/HCPCS: 82565; 70553; A9576

== ENCOUNTER → 2019-04-23 | Outpatient (CLI) | payer OTHER ==
--- NOTE | 2019-04-24 09:20 | RADIOLOGY REPORT (SQ) ---
EXAM DESCRIPTION: PET CT SKULL/THIGH COMPLETED DATE/TIME: 04/24/2019 12:00 am REASON FOR STUDY: (C34.31)MALIGNANT NEOPLASM OF LOWER LOBE, RIGHT BRONCHUS OR LUNG C34.31 MALIGNANT NEOPLASM OF LOWER LOBE, RIGHT BRONCHUS OR L COMPARISON: None. RADIONUCLIDE AND DOSE: 9.97 mCi F18 FDG The route of agent administration: Intravenous FASTING BLOOD SUGAR: 117 mg/dl CONTRAST TYPE AND DOSE: No CT contrast given. TECHNIQUE: Blood glucose level was verified. Above dose of FDG was injected intravenously. 2-D seg mented attenuation correction images were obtained from the base of the skull to the midthighs. Nonc ontrast CT images were obtained for attenuation correction and fusion with emission images. CT image s were performed without oral or intravenous contrast and are not sensitive for parenchymal lesions. A series of overlapping emission PET images were obtained. Images reviewed and manipulated at [facility] work station by the radiologist. Images stored on PACS. LIMITATIONS: None. FINDINGS: HEAD AND NECK: Left supraclavicular nodes 2.8 x 3.5 cm 6.1 SUV. CHEST: Several subcentimeter mildly hypermetabolic station 1 and 2 nodes which are too small to laina cterize. Hypermetabolic bilateral station 4 nodes 5.9 SUV and approximately 1 cm diameter. Hypermetabolic station 10 L node 6.6 SUV an approximately 2.2 x 1.9 cm. Hypermetabolic right lower lobe consolidation 7.4 SUV and approximately 8.3 x 8.2 cm. Hypermetabolic posterior right lower lobe cavitary mass 8.9 SUV and 3.2 x 4.2 cm. ABDOMEN AND PELVIS: No areas of abnormal metabolic activity in the abdomen or pelvis. Expected physi ologic activity is present in the genitourinary system and bowel. PROXIMAL LOWER EXTREMITIES: No areas of abnormal metabolic activity in the soft tissues of the lower extremities. BONES: Hypermetabolic lytic lesion right 3rd lateral rib 8.5 SUV. Large destructive hypermetabolic lytic lesion L5 vertebral body 12.8 SUV. Hypermetabolic mixed sclerotic and lytic lesion right ilium 6.[address] FINDINGS: Small right pleural effusion. OTHER: Blood pool 2.7 SUV. Liver background 3.3 SUV. IMPRESSION: Hypermetabolic pulmonary, mediastinal and hilar lesions as described above. Hypermetabolic bone metastasis. TECHNICAL DOCUMENTATION: JOB ID: [id number] [employer] [facility]- All Rights Reserved Reading location - IP/workstation name: [email or web address]
== END ==
LOC: RAD 16:06
PROVIDERS: ATTEND Internal Medicine
DX: C34.31 Malignant neoplasm of lower lobe, right bronchus or lung (principal); C79.51 Secondary malignant neoplasm of bone
CPT/HCPCS: 78815; A9552

== ENCOUNTER → 2019-04-28 | Outpatient (CLI) | payer OTHER ==
--- NOTE | 2019-04-28 13:01 | XCELERA REPORT ---
[address] [address] Tel: [phone] Lower Extremity Venous Evaluation Procedure: The veins were evaluated for patency, spontaneous and phasic flow from the Common Femoral down to the infrageniculate vessles, on the right. Right Sided Venous Evaluation Abnormal vessel filling, partial compression,Colour flow , from Femoral down to the proximal Posterior tibial veins. Interpretation Summary Chronic DVT present in the right lower extremity. Name: VLADIMIR LUCERO Age: 64 yrs Gender: Female : 1955 Patient Status: Outpatient Patient Location: [facility] Study Date: 04/28/2019 11:48 AM Reason For Study: RLE SWELLING/PAIN Ordering Physician: CLAY GARVIN Performed By: Archana Franco : CLAY GARVIN > Erick Nino
== END ==
LOC: RAD 11:25
PROVIDERS: ATTEND Internal Medicine
DX: M79.609 Pain in unspecified limb (principal); M79.89 Other specified soft tissue disorders
CPT/HCPCS: 93971

== ENCOUNTER 2019-05-08 10:18 | Inpatient (IN) | payer OTHER ==
[2019-05-08] MEDS ORDERED: MORPHINE SULFATE 10 MG/ML INJ IV ONE ×2 (11:35→14:20)
[2019-05-08] MEDS ORDERED: ONDANSETRON HCL INJ/PF 4 MG/2 ML SDV IV ONE ×2 (11:35→14:20)
[2019-05-08 12:59] LABS: ABSOLUTE BASOPHILS # (AUTO) 0.1 10^3/uL (0.0-0.2); ABSOLUTE LYMPHOCYTES (AUTO) 2.4 10^3/uL (0.5-4.7); ABSOLUTE MONOCYTES (AUTO) 1.2 10^3/uL (0.1-1.4); ABSOLUTE NEUT (AUTO) 15.8 10^3/uL (1.7-8.2); BASOPHILS % (AUTO) 0.4 % (0-2); EOSINOPHILS % (AUTO) 0.1 % (0-6); HEMATOCRIT 38.5 % (36.0-47.0); HEMOGLOBIN 12.7 g/dL (12.0-15.5); LYMPHOCYTES % (AUTO) 12.2 % (13-45); MEAN CORPUSCULAR HEMOGLOBIN 30.1 pg (27.0-33.4); MEAN CORPUSCULAR HGB CONC 32.9 g/dL (32.0-36.0); MEAN CORPUSCULAR VOLUME 92 fl (80-97); MONOCYTES % (AUTO) 6.2 % (3-13); RED BLOOD COUNT 4.21 10^6/uL (3.72-5.28); RED CELL DISTRIBUTION WIDTH 14.3 % (11.5-14.0); SEGMENTED NEUTROPHILS % (AUTO) 81.1 % (42-78); TOTAL CELLS COUNTED % (AUTO) 100 %; WHITE BLOOD COUNT 19.4 10^3/uL (4.0-10.5)
[2019-05-08 13:04] LABS: APPEARANCE,URINE CLEAR; BILIRUBIN,URINE NEGATIVE (NEGATIVE); COLOR,URINE YELLOW; GLUCOSE, URINE NEGATIVE (NEGATIVE); KETONES,URINE TRACE mg/dL (NEGATIVE); LEUKOCYTE ESTERASE,URINE NEGATIVE (NEGATIVE); NITRITE,URINE NEGATIVE (NEGATIVE); PROTEIN,URINE NEGATIVE (NEGATIVE); URINE SPECIFIC GRAVITY 1.018; UROBILINOGEN,URINE NEGATIVE mg/dL (<2.0)
[2019-05-08 13:26] LABS: ALBUMIN 3.8 g/dL (3.5-5.0); ALKALINE PHOSPHATASE 144 U/L (38-126); ANION GAP 16 (5-19); ASPARTATE AMINO TRANSFERASE 77 U/L (14-36); BILIRUBIN,DIRECT 0.4 mg/dL (0.0-0.4); BILIRUBIN,TOTAL 1.2 mg/dL (0.2-1.3); BLOOD UREA NITROGEN 49 mg/dL (7-20); CALCIUM 11.2 mg/dL (8.4-10.2); CARBON DIOXIDE 20 mmol/L (22-30); CHLORIDE 102 mmol/L (98-107); CREATINE KINASE 70 U/L (30-135); GLUCOSE 189 mg/dL (75-110); POTASSIUM 4.3 mmol/L (3.6-5.0); URIC ACID 4.8 mg/dL (2.5-7.5)
[2019-05-08 13:32] LABS: PLATELET COUNT 96 10^3/uL (150-450)
--- NOTE | 2019-05-08 13:54 | ER Document Report ---
Entered by MICA FELDER SCRIBE 05/08/19 1131 Acting as scribe for:BRITTNEY BAEZ MD ED General - General Chief Complaint: Trouble Walking Stated Complaint: LEG PAIN Time Seen by Provider: 05/08/19 11:17 Primary Care Provider: CLAY GARVIN MD [ACTIVE STAFF] - Follow up as needed Mode of Arrival: Ambulatory Information source: Patient Notes: This 64-year-old female patient presents to the emergency department today for being "unable to walk". Patient states that she has right knee pain and swelling which is why she can't walk. Patient has chronic osteoarthritic knee pain and had a right knee injection (Celestone) for her osteoarthritic pain by Dr. Jacome on 05/03/2019 and she states the swelling and pain increased after th at. Pertinent PMHx/PSHx: RLE DVT on Xarelto, Recent diagnosis of metastatic lung cancer - additional PMHx/PSHx not pertinent to this visit as recorded. PCP: Doctor Horace Elkins TRAVEL OUTSIDE OF THE [place] IN LAST 30 DAYS: No - Related Data Allergies/Adverse Reactions: iodine Allergy (Verified 03/25/19 15:37) Past Medical History - General Information source: Patient - Social History Smoking Status: Former Smoker - [id number]- history Cigarette use (# per day): No Chew tobacco use (# tins/day): No Frequency of alcohol use: None Drug Abuse: None Lives with: Family Family History: Arthritis, DM, Hypertension, Malignancy Patient has suicidal ideation: No Patient has homicidal ideation: No - Past Medical History Cardiac Medical History: Reports: Hx Hypertension Endocrine Medical History: Reports: Hx Diabetes Mellitus Type 2 GI Medical History: Reports: Hx Colonoscopy, Hx Endoscopy Musculoskeletal Medical History: Reports Hx Arthritis, Reports Hx Musculoskeletal Trauma Past Surgical History: Reports: Hx Cholecystectomy, Hx Hysterectomy - Immunizations Hx Diphtheria, Pertussis, Tetanus Vaccination: No Review of Systems - Review of Systems Constitutional: No symptoms reported EENT: No symptoms reported Cardiovascular: No symptoms reported Respiratory: No symptoms reported Gastrointestinal: No symptoms reported Genitourinary: No symptoms reported Female Genitourinary: No symptoms reported Musculoskeletal: See HPI, Joint pain - right knee pain Skin: No symptoms reported Hematologic/Lymphatic: No symptoms reported Neurological/Psychological: No symptoms reported -: Yes All other systems reviewed and negative Physical Exam - Vital signs Vitals: Resp BP Pulse Ox 14 143/82 H 93 05/08/19 11:33 05/08/19 11:33 05/08/19 11:33 - Notes Notes: Physical Exam: General: Alert, appears well. HEENT: Normocephalic. Atraumatic. PERRL. Extraocular movements intact. Oropharynx clear. Neck: Supple. Non-tender. Respiratory: No respiratory distress. Clear and equal breath sounds bilaterally. Cardiovascular: Regular rate and rhythm. Abdominal: Morbidly obese. Non-tender. No distension. Normal Bowel Sounds. Back: No gross abnormalities. Extremities: Moves all four extremities. Upper extremities: Normal inspection. Normal ROM. Lower extremities: Right knee is grossly swollen, effusion with associated tenderness to palpation. There is also tenderness over the medial aspect of the right knee. Neurological: Normal cognition. AAOx4. Normal speech. Psychological: Normal affect. Normal Mood. Skin: Warm. Dry. Normal color. Course - Re-evaluation Re-evalutation: 05/08/19 15:30 Dr. Jacome came to see the patient and did an arthrocentesis. He reports it appeared to be mostly bloody joint fluid. This is most likely due to the intra- articular Celestone injection last week and the patient being on Xarelto. - Vital Signs Vital signs: Temp Pulse Resp BP Pulse Ox 97.8 F 16 110/57 L 93 05/08/19 12:01 05/08/19 12:01 05/08/19 14:05 05/08/19 14:05 - Laboratory Result Diagrams: 05/08/19 12:26 05/08/19 12:26 Laboratory results interpreted by me: 05/08/19 05/08/19 05/08/19 12:26 12:26 12:45 WBC 19.4 H RDW 14.3 H Plt Count 96 L Lymph % (Auto) 12.2 L Absolute Neuts (auto) 15.8 H Seg Neutrophils % 81.1 H Carbon Dioxide 20 L BUN 49 H Est GFR ( Amer) 58 L Est GFR (MDRD) Non-Af 48 L Glucose 189 H Calcium 11.2 H AST 77 H Alkaline Phosphatase 144 H Urine Ketones TRACE H Discharge - Discharge Clinical Impression: Hemarthrosis following procedure Qualifiers: Encounter type: initial encounter Qualified Code(s): T88.8XXA - Other specified complications of surgical and medical care, not elsewhere classified, initial encounter; M25.00 - Hemarthrosis, unspecified joint Condition: Stable Disposition: ADMITTED INPATIENT Admitting Provider: Dr. Jacome Unit Admitted: Surgical Floor Referrals: CLAY GARVIN MD [ACTIVE STAFF] - Follow up as needed Scribe Attestation: 05/08/19 12:42 I personally performed the services described in the documentation, reviewed and edited the documentation which was dictated to the scribe in my presence, and it accurately records my words and actions. I personally performed the services described in the documentation, reviewed and edited the documentation which was dictated to the scribe in my presence, and it accurately records my words and actions.
[2019-05-08] MEDS ORDERED: ONDANSETRON 4 MG TAB.RAPDIS PO PRN (16:12)
[2019-05-08] MEDS: OXYCODONE HCL IR 5 MG TABLET PO PRN ×2 (16:45→23:21)
[2019-05-08] MEDS: RINGERS SOLUTION,LACTATED 1,000 ML IV PRN (16:51)
[2019-05-08] MEDS: CEFTRIAXONE 2 GM/D5W RTU 2 GM/50 ML RTUPB IV SCH (17:07)
[2019-05-08] MEDS ORDERED: ACETAMINOPHEN 325 MG TABLET PO PRN (18:00)
[2019-05-09] MEDS: RINGERS SOLUTION,LACTATED 1,000 ML IV PRN ×3 (04:42→23:50)
[2019-05-09 05:21] LABS: ABSOLUTE EOSINOPHILS # (AUTO) 0.1 10^3/uL (0.0-0.6); ABSOLUTE LYMPHOCYTES (AUTO) 2.6 10^3/uL (0.5-4.7); ABSOLUTE MONOCYTES (AUTO) 1.4 10^3/uL (0.1-1.4); ABSOLUTE NEUT (AUTO) 14.6 10^3/uL (1.7-8.2); BASOPHILS % (AUTO) 0.1 % (0-2); EOSINOPHILS % (AUTO) 0.3 % (0-6); HEMATOCRIT 34.6 % (36.0-47.0); HEMOGLOBIN 11.4 g/dL (12.0-15.5); LYMPHOCYTES % (AUTO) 13.8 % (13-45); MEAN CORPUSCULAR HEMOGLOBIN 30.1 pg (27.0-33.4); MEAN CORPUSCULAR HGB CONC 32.9 g/dL (32.0-36.0); MEAN CORPUSCULAR VOLUME 92 fl (80-97); MONOCYTES % (AUTO) 7.6 % (3-13); RED BLOOD COUNT 3.77 10^6/uL (3.72-5.28); RED CELL DISTRIBUTION WIDTH 14.4 % (11.5-14.0); SEGMENTED NEUTROPHILS % (AUTO) 78.2 % (42-78); TOTAL CELLS COUNTED % (AUTO) 100 %; WHITE BLOOD COUNT 18.6 10^3/uL (4.0-10.5)
[2019-05-09 05:27] LABS: PLATELET COUNT 85 10^3/uL (150-450)
[2019-05-09 05:38] LABS: ANION GAP 8 (5-19); BLOOD UREA NITROGEN 50 mg/dL (7-20); CALCIUM 11.1 mg/dL (8.4-10.2); CARBON DIOXIDE 24 mmol/L (22-30); CHLORIDE 104 mmol/L (98-107); GLUCOSE 167 mg/dL (75-110)
[2019-05-09] MEDS: OXYCODONE HCL IR 5 MG TABLET PO PRN ×4 (06:00→22:08)
[2019-05-09 06:03] LABS: ERYTHROCYTE SEDIMENTATION RATE 21 mm/hr (0-30)
[2019-05-09 06:33] LABS: C-REACTIVE PROTEIN 146.9 mg/L (<10.0)
--- NOTE | 2019-05-09 07:17 | PDOC H&P ---
History of Present Illness Admission Date/PCP: 05/08/19 15:42 МАРИНА SPANGLER MD History of Present Illness: VLADIMIR LUCERO is a 64 year old female Patient is a 64-year-old female known to me from the outpatient practice. At one point she had been scheduled for a right knee arthroplasty but this was canceled because of some social conflicts. She then presented to the office last week with a diagnosis of her chronic DVT and progressive right knee pain and dysfunction. She underwent an intra-articular injection of Celestone and Marcaine. She now presents to the emergency room with increasing right knee pain and functional disability. She remains afebrile. White count is at 19,00 0. Past Medical History Cardiac Medical History: Reports: Hypertension Endocrine Medical History: Reports: Diabetes Mellitus Type 2 Musculoskeltal Medical History: Reports: Arthritis Psychiatric Medical History: Denies: Depression Hematology: Reports: Other - Right lower extremity deep venous thrombosis Past Surgical History Past Surgical History: Reports: Cholecystectomy, Hysterectomy Social History Information Source: Patient, DrSamy Paige, [facility] Records Lives with: Family Smoking Status: Former Smoker Electronic Cigarette use?: No Frequency of Alcohol Use: None Hx Recreational Drug Use: No Drugs: None Hx Prescription Drug Abuse: No Family History Family History: Reviewed & Not Pertinent, Arthritis, DM, Hypertension, Malignancy Parental Family History Reviewed: No Children Family History Reviewed: No Sibling(s) Family History Reviewed.: No Medication/Allergy Home Medications: Allopurinol [Zyloprim 300 mg Tablet] 300 mg PO DAILY 05/08/19 Celecoxib [Celebrex 200 mg Capsule] 200 mg PO BID 05/08/19 Furosemide [Lasix 40 mg Tablet] 40 mg PO DAILYP PRN 05/08/19 Gabapentin [Neurontin] 600 mg PO Q8 05/08/19 Glimepiride [Amaryl 4 mg Tablet] 4 mg PO BID 05/08/19 Linaclotide [Linzess 145 Mcg Capsule] 145 mcg PO DAILY 05/08/19 Losartan Potassium [Cozaar 100 mg Tablet] 100 mg PO DAILY 05/08/19 Metformin HCl [Metformin HCl ER] 1,000 mg PO BIDBS 05/08/19 Oxycodone HCl [Oxy-Ir 5 mg Tablet] 10 mg PO Q8HP PRN 05/08/19 Oxycodone HCl/Acetaminophen [Oxycodone-Acetaminophen 10-325] 1 tab PO Q8HP PRN 05/08/19 Ranitidine HCl [Zantac] 150 mg PO BID 05/08/19 Rivaroxaban [Xarelto] 20 mg PO BID 05/08/19 Valsartan/Hydrochlorothiazide [Valsartan-Hctz 160-12.5 mg Tab] 1 tab PO DAILY 05/08/19 Allergies/Adverse Reactions: iodine Allergy (Verified 03/25/19 15:37) Review of Systems All systems: as per H Physical Exam Vital Signs: Temp Pulse Resp BP Pulse Ox 37.3 C 126 H 16 126/63 H 94 05/09/19 00:00 05/09/19 00:00 05/09/19 00:00 05/09/19 00:00 05/09/19 00:00 Intake & Output 05/08/19 05/09/19 05/10/19 06:59 06:59 06:59 Intake Total 1050 Balance 1050 Weight 107.2 kg Physical Exam: Overweight middle-aged female initially evaluated in the emergency room on [facility]. Right lower extremity is elevated on a pillow and flexed. There is tenderness to palpation and a significant effusion. There is mild pedal edema. Distal neurovascular examination is intact. General appearance: PRESENT: mild distress, well-developed, well-nourished Head exam: PRESENT: normocephalic Respiratory exam: PRESENT: unlabored Cardiovascular exam: PRESENT: RRR Pulses: PRESENT: +1 pedal pulses bilateral Vascular exam: PRESENT: normal capillary refill GI/Abdominal exam: PRESENT: soft Rectal exam: PRESENT: deferred Neurological exam: PRESENT: alert, awake, oriented to person, oriented to place, oriented to time, oriented to situation. ABSENT: motor sensory deficit Psychiatric exam: PRESENT: anxious Skin exam: PRESENT: dry, intact, warm. ABSENT: cyanosis, rash Results Laboratory Results: 05/09/19 04:42 05/09/19 04:42 05/08/19 05/08/19 05/08/19 12:26 12:26 12:26 WBC 19.4 H RBC 4.21 Hgb 12.7 Hct 38.5 MCV 92 MCH 30.1 MCHC 32.9 RDW 14.3 H Plt Count 96 L Seg Neutrophils % 81.1 H Sodium 138.1 Potassium 4.3 Chloride 102 Carbon Dioxide 20 L Anion Gap 16 BUN 49 H Creatinine 1.13 Est GFR ( Amer) 58 L Glucose 189 H Uric Acid 4.8 Calcium 11.2 H Magnesium 1.7 Total Bilirubin 1.2 AST 77 H Alkaline Phosphatase 144 H C-Reactive Protein 165.7 H Total Protein 7.0 Albumin 3.8 Urine Color Urine Appearance Urine pH Ur Specific Lillian Urine Protein Urine Glucose (UA) Urine Ketones Urine Blood Urine Nitrite Ur Leukocyte Esterase Urine WBC (Auto) Urine RBC (Auto) 05/08/19 05/09/19 05/09/19 12:45 04:42 04:42 WBC 18.6 H RBC 3.77 Hgb 11.4 L Hct 34.6 L MCV 92 MCH 30.1 MCHC 32.9 RDW 14.4 H Plt Count 85 L Seg Neutrophils % 78.2 H Sodium 136.4 L Potassium 4.0 Chloride 104 Carbon Dioxide 24 Anion Gap 8 BUN 50 H Creatinine 0.96 Est GFR ( Amer) > 60 Glucose 167 H Uric Acid Calcium 11.1 H Magnesium Total Bilirubin AST Alkaline Phosphatase C-Reactive Protein 146.9 H Total Protein Albumin Urine Color YELLOW Urine Appearance CLEAR Urine pH 5.0 Ur Specific Lillian 1.018 Urine Protein NEGATIVE Urine Glucose (UA) NEGATIVE Urine Ketones TRACE H Urine Blood NEGATIVE Urine Nitrite NEGATIVE Ur Leukocyte Esterase NEGATIVE Urine WBC (Auto) 0 Urine RBC (Auto) 1 05/08/19 12:26 Creatine Kinase 70 Status: Imported from PACS Assessment & Plan - Diagnosis (1) Effusion, right knee Is this a current diagnosis for this admission?: Yes Plan: In the emergency room an 18-gauge needle was advanced through medial infrapatellar portal and used to aspirate approximately 10 cc of what appears to be a liquefied hematoma. This is sent for cell count and differential as well as culture and sensitivity. Culture and sensitivity results are pending. There is no evidence of the cell count differential container reached the laboratory. The patient remains afebrile. Plan will be for continued course of observation wait for lab results. If there is evidence of an underlying pyarthrosis and arthroscopic irrigation debridement is indicated.
[2019-05-09] MEDS: CEFTRIAXONE 2 GM/D5W RTU 2 GM/50 ML RTUPB IV SCH (17:11)
[2019-05-10] MEDS ORDERED: RINGERS SOLUTION,LACTATED 1,000 ML IV PRN (07:50)
[2019-05-10] MEDS: MORPHINE SULFATE 10 MG/ML INJ IV PRN (08:30)
--- NOTE | 2019-05-10 09:00 | PDOC PROGRESS REPORT ---
Subjective Progress Note for:: 05/10/19 Reason For Visit: RIGHT KNEE PAIN 64-year-old female admitted for right knee pain. Aspiration of the knee in the emergency room was notable for gram-negative rods by Gram stain. Cultures remain no growth so far. Patient in severe pain this morning which seems to be a combination not only of right knee pain but also of left buttock and sciatica pain. Son is present in the patient's room this morning. He is flown in from [place] and was looking to relocate her to [place] for treatment of lung carcinoma which I was unaware of. Physical Exam Vital Signs: Temp Pulse Resp BP Pulse Ox 36.6 C 113 H 18 151/64 H 93 05/10/19 08:07 05/10/19 08:07 05/10/19 08:07 05/10/19 08:07 05/10/19 08:07 Intake & Output 05/09/19 05/10/19 05/11/19 06:59 06:59 06:59 Intake Total 1050 2668 1000 Output Total 1700 Balance 1132 341 4070 Weight 107.2 kg 109 kg Physical Exam: Overweight middle-aged white female in severe distress crying out in pain. General appearance: PRESENT: severe distress Respiratory exam: PRESENT: unlabored Cardiovascular exam: PRESENT: RRR Vascular exam: PRESENT: normal capillary refill GI/Abdominal exam: PRESENT: soft Musculoskeletal exam: PRESENT: other - Right lower extremity held flexed externally rotated and elevated on pillow. There is pain associate with passive range of motion of the knee. Neurological exam: PRESENT: alert, awake, oriented to person, oriented to place, oriented to time, oriented to situation. ABSENT: motor sensory deficit Psychiatric exam: PRESENT: agitated, anxious Skin exam: PRESENT: dry, intact, warm. ABSENT: cyanosis, rash Results Laboratory Results: 05/09/19 04:42 05/09/19 04:42 05/08/19 12:26 Creatine Kinase 70 Status: Imported from PACS Assessment & Plan - Diagnosis (1) Effusion, right knee Is this a current diagnosis for this admission?: Yes Plan: Patient with ongoing pain in the right knee, leukocytosis to 18,000, and a sedimentation rate of 18 and 21 mm/h. Gram stain is notable for gram-negative rods. I think the appropriate conservative thing to do at this point is to perform an arthroscopic washout of the knee with good deep cultures. This is explained to the patient and her son. - Time Time Spent with patient: 15-24 minutes Anticipated discharge: Other Within: Other
[2019-05-10] MEDS ORDERED: KETAMINE HCL INJ 500 MG/10 ML VIAL ONE (15:48)
[2019-05-10] MEDS ORDERED: FENTANYL CITRATE INJ/PF 100 MCG/2 ML AMPUL ONE (15:48)
[2019-05-10] MEDS ORDERED: MIDAZOLAM 2 MG/2 ML INJ ONE (15:49)
[2019-05-10] MEDS ORDERED: PROPOFOL INJ 200 MG/20 ML VIAL IV ONE (15:49)
[2019-05-10] MEDS ORDERED: LIDOCAINE 1%/EPINEPHRINE INJ 20 ML VIAL ONE (15:57)
[2019-05-10] MEDS ORDERED: BUPIVACAINE HCL 0.5 % INJ/PF 30 ML SDV ONE (15:57)
--- NOTE | 2019-05-10 16:55 | Operative Report ---
Operative Report DATE OF SURGERY: 05/10/19 PREOPERATIVE DIAGNOSIS: Right knee septic arthritis POSTOPERATIVE DIAGNOSIS: Right knee hemarthrosis,? 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 SURGEON: ANNEMARIE QUEZADA ANESTHESIA: LMAC TISSUE REMOVED OR ALTERED: 50 cc of liquefied hematoma is sent for combination of culture and sensitivity as well as cell count and differential ESTIMATED BLOOD LOSS: 100 PROCEDURE: With the patient supine Afrin table the right lower extremities prepped and draped in sterile fashion. An 18-gauge needle was advanced through medial infrapatellar portal and used to aspirate approximately 50 to 60 cc of liquefied hematoma. This is sent for cell count and differential as well as culture and sensitivity. The knee is subsequently inflamed insufflated with a combination of Marcaine, Xylocaine, and epinephrine. Medial and lateral infrapatellar portals are created for the introduction of arthroscope and debridements mentation. The joint is examined in systematic fashion. Initially visualization is very difficult because of the presence of a large quantity of blood and what appears to be gelatinous clot. As this is evacuated the joint can be examined in systematic fashion. Using a mechanical shaver and aggressive synovectomy was performed on medial lateral gutters as well as anteriorly. Its then advances up into the suprapatellar pouch where the synovectomy is completed. The joint is again examined in systematic fashion with no new findings. Mechanical shaver is used to perform partial medial lateral meniscectomies because of the unstable nature of the meniscus. Ice continues until 9 L of normal saline is been passed through the arthroscope. At this point the mentation was removed. The portals reapproximated interrupted nylon. A sterile compressive dressing was applied and the patient return to the PACU in satisfactory condition.
[2019-05-10] MEDS ORDERED: DIPHENHYDRAMINE HCL 50 MG/ML VIAL IV PRN (16:58)
[2019-05-10] MEDS ORDERED: MEPERIDINE HCL/PF INJ 25 MG/1 ML DISP.SYRIN IV PRN (16:58)
[2019-05-10] MEDS ORDERED: MORPHINE SULFATE 10 MG/ML INJ IV PRN (16:58)
[2019-05-10] MEDS ORDERED: PROMETHAZINE HCL INJ 25 MG/1 ML VIAL IV PRN (16:58)
[2019-05-10] MEDS ORDERED: FENTANYL CITRATE INJ/PF 100 MCG/2 ML AMPUL IV PRN ×2 (16:58)
[2019-05-10 18:06] LABS: FLUID TYPE SYNOVIAL
[2019-05-10 18:07] LABS: FLUID APPEARANCE TURBID; FLUID COLOR RED; FLUID SOURCE KNEE; FLUID VISCOSITY SLIGHTLY VISCOUS
[2019-05-10] MEDS: CEFTRIAXONE 2 GM/D5W RTU 2 GM/50 ML RTUPB IV SCH (18:14)
[2019-05-10] MEDS: OXYCODONE HCL SR 10 MG TABLET PO SCH (21:27)
[2019-05-11 06:06] LABS: HEMATOCRIT 31.7 % (36.0-47.0); HEMOGLOBIN 10.8 g/dL (12.0-15.5); MEAN CORPUSCULAR VOLUME 91 fl (80-97); RED BLOOD COUNT 3.48 10^6/uL (3.72-5.28); RED CELL DISTRIBUTION WIDTH 14.2 % (11.5-14.0); WHITE BLOOD COUNT 12.4 10^3/uL (4.0-10.5)
[2019-05-11 06:16] LABS: ANION GAP 5 (5-19)
[2019-05-11 06:21] LABS: BLOOD UREA NITROGEN 21 mg/dL (7-20); C-REACTIVE PROTEIN 63.6 mg/L (<10.0); CARBON DIOXIDE 27 mmol/L (22-30); CHLORIDE 105 mmol/L (98-107); GLUCOSE 167 mg/dL (75-110)
[2019-05-11 06:35] LABS: PLATELET COUNT 74 10^3/uL (150-450)
[2019-05-11 06:50] LABS: ERYTHROCYTE SEDIMENTATION RATE 16 mm/hr (0-30)
--- NOTE | 2019-05-11 06:53 | PDOC DISCHARGE SUMMARY ---
Impression - Admit/DC Date/PCP Admission Date/Primary Care Provider: 05/08/19 15:42 МАРИНА SPANGLER MD Discharge Date: 05/11/19 - Discharge Diagnosis (1) Effusion, right knee Is this a current diagnosis for this admission?: Yes - Additional Information Resuscitation Status: Full Code Discharge Diet: Regular Discharge Activity: Balance Activity w/Rest, No tub bath Referrals: CLAY GARVIN MD [ACTIVE STAFF] - Follow up as needed Home Medications: Allopurinol [Zyloprim 300 mg Tablet] 300 mg PO DAILY 05/08/19 Celecoxib [Celebrex 200 mg Capsule] 200 mg PO BID 05/08/19 Furosemide [Lasix 40 mg Tablet] 40 mg PO DAILYP PRN 05/08/19 Gabapentin [Neurontin] 600 mg PO Q8 05/08/19 Glimepiride [Amaryl 4 mg Tablet] 4 mg PO BID 05/08/19 Linaclotide [Linzess 145 Mcg Capsule] 145 mcg PO DAILY 05/08/19 Losartan Potassium [Cozaar 100 mg Tablet] 100 mg PO DAILY 05/08/19 Metformin HCl [Metformin HCl ER] 1,000 mg PO BIDBS 05/08/19 Oxycodone HCl [Oxy-Ir 5 mg Tablet] 10 mg PO Q8HP PRN 05/08/19 Oxycodone HCl/Acetaminophen [Oxycodone-Acetaminophen 10-325] 1 tab PO Q8HP PRN 05/08/19 Ranitidine HCl [Zantac] 150 mg PO BID 05/08/19 Rivaroxaban [Xarelto] 20 mg PO BID 05/08/19 Valsartan/Hydrochlorothiazide [Valsartan-Hctz 160-12.5 mg Tab] 1 tab PO DAILY 05/08/19 History of Present Illiness History of Present Illness: The patient is a 64-year-old female who underwent a right knee injection of a combination [place] and Marcaine approximately week prior to being seen in the emergency room with acute onset right knee pain. At that point she was afebrile but had a significant leukocytosis. She was admitted on the basis of the suspected underlying septic arthritis and an aspiration of the knee was performed in the emergency room. The cell count from that aspiration never made it to the lab. Microbiology specimen Gram stain indicated the presence of gram- negative rods. The mentation rate was 18 and 21 mm an hour. Patient remained afebrile. The patient was started on IV antibiotics and taken to the operating room for an arthroscopic lavage. Intraoperative aspiration of approximately 60 cc of liquefied hematoma had a white cell count of 6000. Intraoperative findings were notable for a large intra-articular hematoma. Hospital Course Hospital Course: Patient's return to the floor status post arthroscopic lavage of the right knee with significant improvement in her pain. Physical Exam Vital Signs: Temp Pulse Resp BP Pulse Ox 36.7 C 127 H 16 144/77 H 96 05/10/19 23:05 05/10/19 23:05 05/10/19 23:05 05/10/19 23:05 05/10/19 23:05 Intake & Output 05/09/19 05/10/19 05/11/19 06:59 06:59 06:59 Intake Total 1050 2668 83525 Output Total 1700 9330 Balance 8955 964 0271 Weight 107.2 kg 109 kg 107.2 kg General appearance: PRESENT: no acute distress, mild distress, well-developed, well-nourished Head exam: PRESENT: normocephalic Respiratory exam: PRESENT: unlabored Cardiovascular exam: PRESENT: RRR Pulses: PRESENT: +1 pedal pulses bilateral GI/Abdominal exam: PRESENT: soft Rectal exam: PRESENT: deferred Musculoskeletal exam: PRESENT: other - Right lower extremity dressing clean dry and intact. Neurological exam: PRESENT: alert, awake, oriented to person, oriented to place, oriented to time, oriented to situation. ABSENT: motor sensory deficit Skin exam: PRESENT: dry, intact, warm. ABSENT: cyanosis, rash Results Laboratory Results: WBC 12.4 10^3/uL (4.0-10.5) H 05/11/19 05:28 RBC 3.48 10^6/uL (3.72-5.28) L 05/11/19 05:28 Hgb 10.8 g/dL (12.0-15.5) L 05/11/19 05:28 Hct 31.7 % (36.0-47.0) L 05/11/19 05:28 MCV 91 fl (80-97) 05/11/19 05:28 MCH 31.0 pg (27.0-33.4) 05/11/19 05:28 MCHC 34.0 g/dL (32.0-36.0) 05/11/19 05:28 RDW 14.2 % (11.5-14.0) H 05/11/19 05:28 Plt Count 74 10^3/uL (150-450) L 05/11/19 05:28 Lymph % (Auto) 13.8 % (13-45) 05/09/19 04:42 [place] % (Auto) 7.6 % (3-13) 05/09/19 04:42 Eos % (Auto) 0.3 % (0-6) 05/09/19 04:42 Baso % (Auto) 0.1 % (0-2) 05/09/19 04:42 Absolute Neuts (auto) 14.6 10^3/uL (1.7-8.2) H 05/09/19 04:42 Absolute Lymphs (auto) 2.6 10^3/uL (0.5-4.7) 05/09/19 04:42 Absolute Monos (auto) 1.4 10^3/uL (0.1-1.4) 05/09/19 04:42 Absolute Eos (auto) 0.1 10^3/uL (0.0-0.6) 05/09/19 04:42 Absolute Basos (auto) 0.0 10^3/uL (0.0-0.2) 05/09/19 04:42 Seg Neutrophils % 78.2 % (42-78) H 05/09/19 04:42 ESR 21 mm/hr (0-30) 05/09/19 04:42 Sodium 136.6 mmol/L (137-145) L 05/11/19 05:28 Potassium 4.0 mmol/L (3.6-5.0) 05/11/19 05:28 Chloride 105 mmol/L (98-107) 05/11/19 05:28 Carbon Dioxide 27 mmol/L (22-30) 05/11/19 05:28 Anion Gap 5 (5-19) 05/11/19 05:28 BUN 21 mg/dL (7-20) H 05/11/19 05:28 Creatinine 0.62 mg/dL (0.52-1.25) 05/11/19 05:28 Est GFR ( Amer) > 60 (>60) 05/11/19 05:28 Est GFR (MDRD) Non-Af > 60 (>60) 05/11/19 05:28 Glucose 167 mg/dL (75-110) H 05/11/19 05:28 POC Glucose 191 mg/dL (70-110) H 05/10/19 01:18 Lactic Acid (Sepsis) 1.6 mmol/L (0.7-2.1) 05/08/19 12:26 Uric Acid 4.8 mg/dL (2.5-7.5) 05/08/19 12:26 Calcium 10.0 mg/dL (8.4-10.2) 05/11/19 05:28 Magnesium 1.7 mg/dL (1.6-2.3) 05/08/19 12:26 Total Bilirubin 1.2 mg/dL (0.2-1.3) 05/08/19 12:26 Direct Bilirubin 0.4 mg/dL (0.0-0.4) 05/08/19 12:26 Neonat Total Bilirubin Not Reportable 05/08/19 12:26 Neonat Direct Bilirubin Not Reportable 05/08/19 12:26 Neonat Indirect Bili Not Reportable 05/08/19 12:26 AST 77 U/L (14-36) H 05/08/19 12:26 ALT 33 U/L (<35) 05/08/19 12:26 Alkaline Phosphatase 144 U/L (38-126) H 05/08/19 12:26 Creatine Kinase 70 U/L (30-135) 05/08/19 12:26 C-Reactive Protein 63.6 mg/L (<10.0) H 05/11/19 05:28 Total Protein 7.0 g/dL (6.3-8.2) 05/08/19 12:26 Albumin 3.8 g/dL (3.5-5.0) 05/08/19 12:26 Urine Color YELLOW 05/08/19 12:45 Urine Appearance CLEAR 05/08/19 12:45 Urine pH 5.0 (5.0-9.0) 05/08/19 12:45 Ur Specific [place] 1.018 05/08/19 12:45 Urine Protein NEGATIVE mg/dL (NEGATIVE) 05/08/19 12:45 Urine Glucose (UA) NEGATIVE mg/dL (NEGATIVE) 05/08/19 12:45 Urine Ketones TRACE mg/dL (NEGATIVE) H 05/08/19 12:45 Urine Blood NEGATIVE (NEGATIVE) 05/08/19 12:45 Urine Nitrite NEGATIVE (NEGATIVE) 05/08/19 12:45 Urine Bilirubin NEGATIVE (NEGATIVE) 05/08/19 12:45 Urine Urobilinogen NEGATIVE mg/dL (<2.0) 05/08/19 12:45 Ur Leukocyte Esterase NEGATIVE (NEGATIVE) 05/08/19 12:45 Urine WBC (Auto) 0 /HPF 05/08/19 12:45 Urine RBC (Auto) 1 /HPF 05/08/19 12:45 U Hyaline Cast (Auto) 4 /LPF 05/08/19 12:45 Urine Mucus (Auto) OCC /LPF 05/08/19 12:45 Urine Ascorbic Acid NEGATIVE (NEGATIVE) 05/08/19 12:45 Fluid Type SYNOVIAL 05/10/19 16:15 Fluid Source KNEE 05/10/19 16:15 Fluid Color RED 05/10/19 16:15 Fluid Appearance TURBID 05/10/19 16:15 Fluid Viscosity SLIGHTLY VISCOUS 05/10/19 16:15 Fluid WBC 6222 /uL 05/10/19 16:15 Fluid RBC [id number] /uL 05/10/19 16:15 Fluid Seg Neutrophils 83 % 05/10/19 16:15 Fluid Lymphocytes 14 % 05/10/19 16:15 Fluid Monocytes 3 % 05/10/19 16:15 Fluid Eosinophils 0 % 05/10/19 16:15 Fluid Basophils 0 % 05/10/19 16:15 Plan Plan of Treatment: Patient is going to be transported by her children to [facility] for follow-up oncologic care. Plan will be for transport via airplane. Patient can weight-bear as tolerated. Compressive wrap on the right lower extremity can be removed on Wednesday. Underlying OpSite dressing can be left in place until you arrange follow-up in [place]. Patient may shower once the press of dressing is removed. The accepting orthopedic surgeon in [place] can telephone her office for copies of all appropriate records. Time Spent: Less than 30 Minutes Stroke Is this a Stroke Patient?: No Stroke Pt being discharged on Anti-thrombolytic therapy?: Yes Acute Heart Failure - Is this a Heart Failure Patient?: No
[2019-05-11] MEDS: OXYCODONE HCL IR 5 MG TABLET PO PRN ×2 (08:19→19:33)
[2019-05-11] MEDS: OXYCODONE HCL SR 10 MG TABLET PO SCH ×2 (09:21→21:55)
--- NOTE | 2019-05-12 06:48 | PDOC PROGRESS REPORT ---
Subjective Progress Note for:: 05/12/19 Reason For Visit: RIGHT KNEE PAIN 54-year-old female status post arthroscopic washout of a right knee hematoma that does not appear to be infected. Patient was scheduled for discharge yesterday but was functionally unable to accomplish this. Physical Exam Vital Signs: Temp Pulse Resp BP Pulse Ox 37.7 C 116 H 16 138/73 H 96 05/11/19 23:39 05/11/19 23:39 05/11/19 23:39 05/11/19 23:39 05/11/19 23:39 Intake & Output 05/10/19 05/11/19 05/12/19 06:59 06:59 06:59 Intake Total 2668 47435 1576 Output Total 1700 9330 Balance 968 1610 1576 Weight 109 kg 107.2 kg 104.1 kg General appearance: PRESENT: mild distress Head exam: PRESENT: normocephalic Respiratory exam: PRESENT: unlabored Cardiovascular exam: PRESENT: RRR Pulses: PRESENT: +1 pedal pulses bilateral Extremities exam: PRESENT: other - Right knee compressive dressing removed. Underlying OpSite dressings clean dry and intact. Minimal pedal edema. Less knee effusion. Continued pain with passive range of motion. Results Laboratory Results: 05/11/19 05:28 05/11/19 05:28 05/08/19 12:26 Creatine Kinase 70 Status: Imported from PACS Assessment & Plan - Diagnosis (1) Effusion, right knee Is this a current diagnosis for this admission?: Yes Plan: Mobilized with physical therapy and weightbearing as tolerated basis. Anticipate the need for jail facility placement. - Time Time Spent with patient: 15-24 minutes Anticipated discharge: SNF Within: when bed available
[2019-05-12] MEDS ORDERED: ADENOSINE INJ/PF 6 MG/2 ML SDV IV ONE (08:00)
[2019-05-12] MEDS ORDERED: AMIODARONE HCL INJ 150 MG/3 ML VIAL IV ONE (08:00)
[2019-05-12] MEDS: OXYCODONE HCL IR 5 MG TABLET PO PRN ×2 (08:22→18:27)
[2019-05-12] MEDS ORDERED: OXYCODONE HCL IR 5 MG TABLET PO PRN (11:47)
[2019-05-12] MEDS ORDERED: (PENDING PHARMACY ID) (Oxycodone Hcl/Acetaminophen [Oxycodone-Acetaminophen 10-325] 1 TAB) PO PRN (11:47)
[2019-05-12] MEDS ORDERED: FUROSEMIDE 40 MG TABLET PO PRN (11:47)
[2019-05-12] MEDS: OXYCODONE HCL SR 10 MG TABLET PO SCH ×2 (12:03→21:31)
[2019-05-12] MEDS ORDERED: HYDROCHLOROTHIAZIDE 12.5 MG TABLET PO SCH (13:00)
[2019-05-12] MEDS: GABAPENTIN 300 MG CAPSULE PO SCH ×2 (13:06→21:31)
[2019-05-12] MEDS: LOSARTAN POTASSIUM 50 MG TABLET PO SCH (13:07)
[2019-05-12] MEDS: ALLOPURINOL 300 MG TABLET PO SCH (13:07)
[2019-05-12] MEDS: VALSARTAN 160 MG TABLET PO SCH (13:08)
[2019-05-12] MEDS: HYDROCHLOROTHIAZIDE 12.5 MG TABLET PO SCH (13:09)
[2019-05-12] MEDS ORDERED: RIVAROXABAN 10 MG TABLET PO ONE (14:00)
[2019-05-12] MEDS ORDERED: (PENDING PHARMACY ID) (Metformin Hcl [Metformin Hcl Er] 1,000 MG) PO SCH (17:00)
[2019-05-12] MEDS: GLIMEPIRIDE 4 MG TABLET PO SCH (17:20)
[2019-05-12] MEDS ORDERED: (PENDING PHARMACY ID) (Ranitidine Hcl [Zantac] 150 MG) PO SCH (18:00)
[2019-05-12] MEDS ORDERED: RIVAROXABAN 10 MG TABLET PO SCH ×2 (18:00→22:00)
[2019-05-12] MEDS: RIVAROXABAN 10 MG TABLET PO SCH (18:19)
[2019-05-12] MEDS: CELECOXIB 200 MG CAPSULE PO SCH (21:31)
[2019-05-13] MEDS: GABAPENTIN 300 MG CAPSULE PO SCH ×2 (05:25→13:46)
[2019-05-13] MEDS: OXYCODONE HCL IR 5 MG TABLET PO PRN ×2 (05:26→21:24)
--- NOTE | 2019-05-13 07:01 | PDOC TRANSFER SUMMARY ---
Impression - Admit/DC Date/PCP Admission Date/Primary Care Provider: 05/12/19 14:45 МАРИНА SPANGLER MD Discharge Date: 05/13/19 - Discharge Diagnosis (1) Effusion, right knee Is this a current diagnosis for this admission?: Yes - Additional Information Resuscitation Status: Full Code Discharge Diet: As Tolerated, Regular Discharge Activity: Activity As Tolerated, Balance Activity w/Rest, No tub bath Referrals: [facility] [Outside] ANNEMARIE QUEZADA MD [ACTIVE STAFF] - Home Medications: Allopurinol [Zyloprim 300 mg Tablet] 300 mg PO DAILY 05/08/19 Celecoxib [Celebrex 200 mg Capsule] 200 mg PO Q12 05/08/19 Furosemide [Lasix 40 mg Tablet] 40 mg PO DAILY 05/08/19 Gabapentin [Neurontin] 600 mg PO Q8 05/08/19 Glimepiride [Amaryl 4 mg Tablet] 4 mg PO BID 05/08/19 Linaclotide [Linzess 145 Mcg Capsule] 145 mcg PO DAILY 05/08/19 Losartan Potassium [Cozaar 100 mg Tablet] 100 mg PO DAILY 05/08/19 Metformin HCl [Metformin HCl ER] 1,000 mg PO BIDBS 05/08/19 Oxycodone HCl [Oxy-Ir 5 mg Tablet] 10 mg PO Q8HP PRN 05/08/19 Oxycodone HCl/Acetaminophen [Oxycodone-Acetaminophen 10-325] 1 tab PO Q8HP PRN 05/08/19 Ranitidine HCl [Zantac] 150 mg PO BID 05/08/19 Rivaroxaban [Xarelto] 20 mg PO BID 05/08/19 Valsartan/Hydrochlorothiazide [Valsartan-Hctz 160-12.5 mg Tab] 1 tab PO DAILY 05/08/19 Hydrochlorothiazide [Hydrodiuril 12.5 mg Tablet] 12.5 mg PO DAILY 05/12/19 History of Present Illiness History of Present Illness: 64-year-old female with acute onset right knee pain, effusion, and inability to ambulate. Hospital Course Hospital Course: She was evaluated in the emergency room for an underlying septic arthritis was questioned because of the leukocytosis. Patient underwent an aspiration followed by an arthroscopic debridement. She remains afebrile. Her site sedimentation rate remains below the upper limits of normal. Intraoperative white blood cell count is 6600 and the aspirate. Intraoperative cultures are no growth so far. As a result of these factors my conclusion is the patient had acute onset hematoma without an underlying septic component. The patient is subsequent been rehabilitated with physical therapy with very limited progress. Physical Exam Vital Signs: Temp Pulse Resp BP Pulse Ox 37.4 C 120 H 17 117/74 96 05/12/19 23:15 05/12/19 23:15 05/12/19 23:15 05/12/19 23:15 05/12/19 23:15 Intake & Output 05/11/19 05/12/19 05/13/19 06:59 06:59 06:59 Intake Total 99620 1576 880 Output Total 9330 Balance 1610 1576 880 Weight 107.2 kg 104.1 kg 105.6 kg General appearance: PRESENT: no acute distress, mild distress, well-developed, well-nourished Head exam: PRESENT: normocephalic Respiratory exam: PRESENT: unlabored Cardiovascular exam: PRESENT: RRR Pulses: PRESENT: +1 pedal pulses bilateral Vascular exam: PRESENT: normal capillary refill GI/Abdominal exam: PRESENT: soft Rectal exam: PRESENT: deferred Musculoskeletal exam: PRESENT: other - Right knee dressing remains clean dry and intact. Effusion seems to be decreased. Passive range of motion continues to be associated with pain but potentially less than it was before. Distal neurovascular examinations are intact. Neurological exam: PRESENT: alert, awake, oriented to person, oriented to place, oriented to time, oriented to situation. ABSENT: motor sensory deficit Psychiatric exam: PRESENT: appropriate affect, normal mood. ABSENT: homicidal ideation, suicidal ideation Skin exam: PRESENT: dry, intact, warm. ABSENT: cyanosis, rash Results Laboratory Results: WBC 12.4 10^3/uL (4.0-10.5) H 05/11/19 05:28 RBC 3.48 10^6/uL (3.72-5.28) L 05/11/19 05:28 Hgb 10.8 g/dL (12.0-15.5) L 05/11/19 05:28 Hct 31.7 % (36.0-47.0) L 05/11/19 05:28 MCV 91 fl (80-97) 05/11/19 05:28 MCH 31.0 pg (27.0-33.4) 05/11/19 05:28 MCHC 34.0 g/dL (32.0-36.0) 05/11/19 05:28 RDW 14.2 % (11.5-14.0) H 05/11/19 05:28 Plt Count 74 10^3/uL (150-450) L 05/11/19 05:28 Lymph % (Auto) 13.8 % (13-45) 05/09/19 04:42 [place] % (Auto) 7.6 % (3-13) 05/09/19 04:42 Eos % (Auto) 0.3 % (0-6) 05/09/19 04:42 Baso % (Auto) 0.1 % (0-2) 05/09/19 04:42 Absolute Neuts (auto) 14.6 10^3/uL (1.7-8.2) H 05/09/19 04:42 Absolute Lymphs (auto) 2.6 10^3/uL (0.5-4.7) 05/09/19 04:42 Absolute Monos (auto) 1.4 10^3/uL (0.1-1.4) 05/09/19 04:42 Absolute Eos (auto) 0.1 10^3/uL (0.0-0.6) 05/09/19 04:42 Absolute Basos (auto) 0.0 10^3/uL (0.0-0.2) 05/09/19 04:42 Seg Neutrophils % 78.2 % (42-78) H 05/09/19 04:42 ESR 16 mm/hr (0-30) 05/11/19 05:28 Sodium 136.6 mmol/L (137-145) L 05/11/19 05:28 Potassium 4.0 mmol/L (3.6-5.0) 05/11/19 05:28 Chloride 105 mmol/L (98-107) 05/11/19 05:28 Carbon Dioxide 27 mmol/L (22-30) 05/11/19 05:28 Anion Gap 5 (5-19) 05/11/19 05:28 BUN 21 mg/dL (7-20) H 05/11/19 05:28 Creatinine 0.62 mg/dL (0.52-1.25) 05/11/19 05:28 Est GFR ( Amer) > 60 (>60) 05/11/19 05:28 Est GFR (MDRD) Non-Af > 60 (>60) 05/11/19 05:28 Glucose 167 mg/dL (75-110) H 05/11/19 05:28 POC Glucose 100 mg/dL (70-110) 05/13/19 06:30 Lactic Acid (Sepsis) 1.6 mmol/L (0.7-2.1) 05/08/19 12:26 Uric Acid 4.8 mg/dL (2.5-7.5) 05/08/19 12:26 Calcium 10.0 mg/dL (8.4-10.2) 05/11/19 05:28 Magnesium 1.7 mg/dL (1.6-2.3) 05/08/19 12:26 Total Bilirubin 1.2 mg/dL (0.2-1.3) 05/08/19 12:26 Direct Bilirubin 0.4 mg/dL (0.0-0.4) 05/08/19 12:26 Neonat Total Bilirubin Not Reportable 05/08/19 12:26 Neonat Direct Bilirubin Not Reportable 05/08/19 12:26 Neonat Indirect Bili Not Reportable 05/08/19 12:26 AST 77 U/L (14-36) H 05/08/19 12:26 ALT 33 U/L (<35) 05/08/19 12:26 Alkaline Phosphatase 144 U/L (38-126) H 05/08/19 12:26 Creatine Kinase 70 U/L (30-135) 05/08/19 12:26 C-Reactive Protein 63.6 mg/L (<10.0) H 05/11/19 05:28 Total Protein 7.0 g/dL (6.3-8.2) 05/08/19 12:26 Albumin 3.8 g/dL (3.5-5.0) 05/08/19 12:26 Urine Color YELLOW 05/08/19 12:45 Urine Appearance CLEAR 05/08/19 12:45 Urine pH 5.0 (5.0-9.0) 05/08/19 12:45 Ur Specific [place] 1.018 05/08/19 12:45 Urine Protein NEGATIVE mg/dL (NEGATIVE) 05/08/19 12:45 Urine Glucose (UA) NEGATIVE mg/dL (NEGATIVE) 05/08/19 12:45 Urine Ketones TRACE mg/dL (NEGATIVE) H 05/08/19 12:45 Urine Blood NEGATIVE (NEGATIVE) 05/08/19 12:45 Urine Nitrite NEGATIVE (NEGATIVE) 05/08/19 12:45 Urine Bilirubin NEGATIVE (NEGATIVE) 05/08/19 12:45 Urine Urobilinogen NEGATIVE mg/dL (<2.0) 05/08/19 12:45 Ur Leukocyte Esterase NEGATIVE (NEGATIVE) 05/08/19 12:45 Urine WBC (Auto) 0 /HPF 05/08/19 12:45 Urine RBC (Auto) 1 /HPF 05/08/19 12:45 U Hyaline Cast (Auto) 4 /LPF 05/08/19 12:45 Urine Mucus (Auto) OCC /LPF 05/08/19 12:45 Urine Ascorbic Acid NEGATIVE (NEGATIVE) 05/08/19 12:45 Fluid Type SYNOVIAL 05/10/19 16:15 Fluid Source KNEE 05/10/19 16:15 Fluid Color RED 05/10/19 16:15 Fluid Appearance TURBID 05/10/19 16:15 Fluid Viscosity SLIGHTLY VISCOUS 05/10/19 16:15 Fluid WBC 6222 /uL 05/10/19 16:15 Fluid RBC [id number] /uL 05/10/19 16:15 Fluid Seg Neutrophils 83 % 05/10/19 16:15 Fluid Lymphocytes 14 % 05/10/19 16:15 Fluid Monocytes 3 % 05/10/19 16:15 Fluid Eosinophils 0 % 05/10/19 16:15 Fluid Basophils 0 % 05/10/19 16:15 Plan Plan of Treatment: She to be discharged with jail facility they can work on range of motion and strength in lower extremities with progressive ambulation weightbearing as tolerated basis. I be glad to see the patient back as an outpatient and discussed total knee arthroplasty on elective basis. Goals: Weightbearing as tolerated ambulation Time Spent: Less than 30 Minutes Stroke Is this a Stroke Patient?: No Stroke Pt being discharged on Anti-thrombolytic therapy?: Yes Acute Heart Failure - Is this a Heart Failure Patient?: No
[2019-05-13] MEDS: GLIMEPIRIDE 4 MG TABLET PO SCH ×2 (08:43→17:48)
[2019-05-13] MEDS: RIVAROXABAN 10 MG TABLET PO SCH ×2 (08:43→17:47)
[2019-05-13] MEDS: MORPHINE SULFATE 10 MG/ML INJ IV PRN (09:33)
[2019-05-13] MEDS: HYDROCHLOROTHIAZIDE 12.5 MG TABLET PO SCH (09:35)
[2019-05-13] MEDS: CELECOXIB 200 MG CAPSULE PO SCH ×2 (09:36→21:24)
[2019-05-13] MEDS ORDERED: (PENDING PHARMACY ID) (Valsartan/Hydrochlorothiazide [Valsartan-Hctz 160-12.5 Mg Tab] 1 TA PO SCH (10:00)
[2019-05-13] MEDS ORDERED: FUROSEMIDE 40 MG TABLET PO SCH (10:00)
[2019-05-13] MEDS: VALSARTAN 160 MG TABLET PO SCH (12:16)
[2019-05-13] MEDS: OXYCODONE HCL SR 10 MG TABLET PO SCH (12:16)
[2019-05-13] MEDS: ALLOPURINOL 300 MG TABLET PO SCH (12:16)
[2019-05-13] MEDS: LOSARTAN POTASSIUM 50 MG TABLET PO SCH (12:16)
[2019-05-13] MEDS ORDERED: OXYCODONE HCL IR 5 MG TABLET PO PRN (15:04)
[2019-05-13] MEDS ORDERED: MORPHINE SULFATE 10 MG/ML INJ IV PRN (15:09)
[2019-05-13] MEDS ORDERED: DEXTROSE 40% GEL 15 GM TUBE PO PRN ×2 (15:11)
[2019-05-13] MEDS ORDERED: GLUCAGON,HUMAN RECOMB 1 MG INJ IM PRN (15:11)
[2019-05-13] MEDS: NORMAL SALINE 1000 ML 1,000 ML IV PRN (15:16)
[2019-05-13] MEDS ORDERED: BISACODYL 10 MG SUPP.RECT PR ONE (15:35)
[2019-05-13] MEDS ORDERED: BISACODYL 10 MG SUPP.RECT PR PRN (15:35)
--- NOTE | 2019-05-13 15:49 | RADIOLOGY REPORT (SQ) ---
EXAM DESCRIPTION: CHEST SINGLE VIEW COMPLETED DATE/TIME: 05/13/2019 3:38 pm REASON FOR STUDY: Wheezing / Lung cancer COMPARISON: 03/09/2019, PET-CT, 04/23/2019 EXAM PARAMETERS: NUMBER OF VIEWS: One view. TECHNIQUE: Single frontal radiographic view of the chest acquired. RADIATION DOSE: NA LIMITATIONS: None. FINDINGS: LUNGS AND PLEURA: Bulky right hilar mass as seen on prior PET-CT with small associated rig ht pleural effusion. No acute airspace opacity. MEDIASTINUM AND HILAR STRUCTURES: No masses. Contour normal. HEART AND VASCULAR STRUCTURES: Cardiomegaly. BONES: No acute findings. HARDWARE: None in the chest. OTHER: No other significant finding. IMPRESSION: Bulky right hilar mass as seen on prior PET-CT with small associated right pleural effus ion. No acute airspace opacity. TECHNICAL DOCUMENTATION: JOB ID: [id number] [employer]- All Rights Reserved Reading location - IP/workstation name: [email or web address]
[2019-05-13 16:16] LABS: HEMATOCRIT 31.6 % (36.0-47.0); HEMOGLOBIN 10.3 g/dL (12.0-15.5); MEAN CORPUSCULAR HEMOGLOBIN 30.2 pg (27.0-33.4); MEAN CORPUSCULAR HGB CONC 32.7 g/dL (32.0-36.0); MEAN CORPUSCULAR VOLUME 92 fl (80-97); RED BLOOD COUNT 3.42 10^6/uL (3.72-5.28); RED CELL DISTRIBUTION WIDTH 13.9 % (11.5-14.0); WHITE BLOOD COUNT 13.8 10^3/uL (4.0-10.5)
[2019-05-13 16:38] LABS: ANION GAP 9 (5-19); BLOOD UREA NITROGEN 44 mg/dL (7-20); CALCIUM 11.2 mg/dL (8.4-10.2); CARBON DIOXIDE 25 mmol/L (22-30); CHLORIDE 101 mmol/L (98-107); GLUCOSE 131 mg/dL (75-110); POTASSIUM 4.1 mmol/L (3.6-5.0)
[2019-05-13 16:44] LABS: PLATELET COUNT 87 10^3/uL (150-450)
[2019-05-13 16:56] LABS: FREE T3 3.99 pg/mL (2.77-5.27); FREE T4 (FREE THYROXINE) 2.17 ng/dL (0.78-2.19)
[2019-05-13 17:09] LABS: THYROID STIMULATING HORMONE 0.26 uIU/mL (0.47-4.68)
--- NOTE | 2019-05-13 17:28 | EKG REPORT ---
SEVERITY:- BORDERLINE ECG - SINUS TACHYCARDIA LVH BY VOLTAGE : Confirmed by: Vahid Mcguire MD 13-May-2019 17:27:31
[2019-05-13] MEDS: INSULIN LISPRO 100 UNIT/ML 3 ML VIAL SUBCUT SCH ×2 (17:46→21:20)
--- NOTE | 2019-05-13 19:21 | PDOC CONSULTATION ---
Consultation Consult Date: 05/13/19 Attending physician:: ANGELIKA SINGLETARY Provider Consulted: GUANAKITO MCGRATH Consult reason:: Lung CA, dehydration, wheezing, low grade fever History of Present Illness Admission Date/PCP: 05/12/19 14:45 МАРИНА SPANGLER MD Patient complains of: None History of Present Illness: Per H&P by Dr. Jacome: LULY LUCERO is a 64 year old female Patient is a 64-year-old female known to me from the outpatient practice. At one point she had been scheduled for a right knee arthroplasty but this was canceled because of some social conflicts. She then presented to the office last week with a diagnosis of her chronic DVT and progressive right knee pain and dysfunction. She underwent an intra-articular injection of Celestone and Marcaine. She now presents to the emergency room with increasing right knee pain and functional disability. She remains afebrile. White count is at 19,000. Course: Underwent aspiration followed by arthroscopic debridement of her right knee. She then developed an acute hematoma without underlying septic component. She has had limited rehabilitation progress with physical therapy due to right knee pain. Today, the hospitalist service was consulted for tachycardia (HR 112-130 present since day of admission), low-grade temperature (T-max last 48 hours 99.9), dehydration, and lung cancer (established with Dr. Gutierrez). The patient was seen on morning rounds. She was found resting in bed comfortably on room air. She reports that her only complaint is continued right knee tenderness limiting her ability to participate with physical therapy. She is hopeful to be discharged soon as she is planning to move to [place] to live with her children while undergoing chemotherapy arrangements. She reports that Dr. Gutierrez has already established with an oncologist in the area who will assume her care to provide her chemotherapy agents. She does acknowledge poor p.o. intake. Otherwise, she denies fever, chills, chest pain, palpitations, dyspnea, orthopnea, cough, abdominal pain, nausea, vomiting, diarrhea. Patient has no new questions or concerns and is actually quite surprised by the multiple providers who have seen her today (both myself and Dr. Shi have been consulted). She is concerned that this presents another possible delay to her discharge. No other questions or concerns at this time. No other concerns per nursing. Past Medical History Cardiac Medical History: Reports: DVT, Hypertension Endocrine Medical History: Reports: Diabetes Mellitus Type 2, Obesity Renal/ Medical History: Reports: None Malignancy Medical History: Reports: Lung Cancer GI Medical History: Reports: None Musculoskeltal Medical History: Reports: Arthritis Psychiatric Medical History: Denies: Depression Past Surgical History Past Surgical History: Reports: Cholecystectomy, Hysterectomy, Orthopedic Surgery - Right knee arthroscopic Social History Information Source: Patient Lives with: Family Smoking Status: Former Smoker Electronic Cigarette use?: No Frequency of Alcohol Use: None Hx Recreational Drug Use: No Drugs: None Hx Prescription Drug Abuse: No - Advance Directive Resuscitation Status: Full Code Family History Family History: Reviewed & Not Pertinent, Arthritis, DM, Hypertension, Malignancy Parental Family History Reviewed: Yes Children Family History Reviewed: Yes Sibling(s) Family History Reviewed.: Yes Medication/Allergy Home Medications: Allopurinol [Zyloprim 300 mg Tablet] 300 mg PO DAILY 05/08/19 Celecoxib [Celebrex 200 mg Capsule] 200 mg PO Q12 05/08/19 Furosemide [Lasix 40 mg Tablet] 40 mg PO DAILY 05/08/19 Gabapentin [Neurontin] 600 mg PO Q8 05/08/19 Glimepiride [Amaryl 4 mg Tablet] 4 mg PO BID 05/08/19 Linaclotide [Linzess 145 Mcg Capsule] 145 mcg PO DAILY 05/08/19 Losartan Potassium [Cozaar 100 mg Tablet] 100 mg PO DAILY 05/08/19 Metformin HCl [Metformin HCl ER] 1,000 mg PO BIDBS 05/08/19 Oxycodone HCl [Oxy-Ir 5 mg Tablet] 10 mg PO Q8HP PRN 05/08/19 Oxycodone HCl/Acetaminophen [Oxycodone-Acetaminophen 10-325] 1 tab PO Q8HP PRN 05/08/19 Ranitidine HCl [Zantac] 150 mg PO BID 05/08/19 Rivaroxaban [Xarelto] 20 mg PO BID 05/08/19 Valsartan/Hydrochlorothiazide [Valsartan-Hctz 160-12.5 mg Tab] 1 tab PO DAILY 05/08/19 Hydrochlorothiazide [Hydrodiuril 12.5 mg Tablet] 12.5 mg PO DAILY 05/12/19 Allergies/Adverse Reactions: iodine Allergy (Verified 03/25/19 15:37) Review of Systems Constitutional: ABSENT: chills, fever(s), headache(s), weight gain, weight loss Eyes: ABSENT: visual disturbances Ears: ABSENT: hearing changes Cardiovascular: ABSENT: chest pain, dyspnea on exertion, edema, orthropnea, palpitations Respiratory: ABSENT: cough, hemoptysis Gastrointestinal: PRESENT: other - Poor appetite. ABSENT: abdominal pain, constipation, diarrhea, hematemesis, hematochezia, nausea, vomiting Genitourinary: ABSENT: dysuria, hematuria Musculoskeletal: ABSENT: joint swelling Integumentary: ABSENT: rash, wounds Neurological: ABSENT: abnormal gait, abnormal speech, confusion, dizziness, focal weakness, syncope Psychiatric: ABSENT: anxiety, depression, homidical ideation, suicidal ideation Endocrine: ABSENT: cold intolerance, heat intolerance, polydipsia, polyuria Hematologic/Lymphatic: ABSENT: easy bleeding, easy bruising Physical Exam Vital Signs: Temp Pulse Resp BP Pulse Ox 99.3 F 116 H 18 103/54 L 96 05/13/19 11:47 05/13/19 15:36 05/13/19 15:36 05/13/19 11:47 05/13/19 15:36 Intake & Output 05/12/19 05/13/19 05/14/19 06:59 06:59 06:59 Intake Total 1576 880 600 Output Total 200 Balance 1576 880 400 Weight 104.1 kg 105.6 kg General appearance: PRESENT: no acute distress, cooperative, morbidly obese, well-developed, well-nourished Head exam: PRESENT: atraumatic, normocephalic Eye exam: PRESENT: conjunctiva pink, EOMI, PERRLA. ABSENT: scleral icterus Ear exam: PRESENT: normal external ear exam Mouth exam: PRESENT: moist, tongue midline Respiratory exam: PRESENT: clear to auscultation shivam, decreased breath sounds - Diminished right middle and lower durán, symmetrical, unlabored, wheezes - Intermittent expiratory wheeze right middle lobe. ABSENT: rales, rhonchi Cardiovascular exam: PRESENT: RRR, tachycardia - 112-130. ABSENT: diastolic murmur, rubs, systolic murmur Pulses: PRESENT: normal dorsalis pedis pul Vascular exam: PRESENT: normal capillary refill GI/Abdominal exam: PRESENT: normal bowel sounds, soft. ABSENT: distended, guarding, mass, organolmegaly, rebound, tenderness Rectal exam: PRESENT: deferred Extremities exam: PRESENT: tenderness - Right knee. ABSENT: calf tenderness, clubbing, pedal edema Musculoskeletal exam: ABSENT: ambulatory - Unable to ambulate at present secondary to right knee pain Neurological exam: PRESENT: alert, awake, oriented to person, oriented to place, oriented to time, oriented to situation, CN II-XII grossly intact. ABSENT: motor sensory deficit Psychiatric exam: PRESENT: appropriate affect, normal mood. ABSENT: homicidal ideation, suicidal ideation Skin exam: PRESENT: dry, intact, warm, other - Poor skin turgor. ABSENT: cyanosis, rash Results Laboratory Results: 05/13/19 15:55 05/13/19 15:55 05/13/19 05/13/19 05/13/19 15:55 15:55 15:55 WBC 13.8 H RBC 3.42 L Hgb 10.3 L Hct 31.6 L MCV 92 MCH 30.2 MCHC 32.7 RDW 13.9 Plt Count 87 L Sodium 135.0 L Potassium 4.1 Chloride 101 Carbon Dioxide 25 Anion Gap 9 BUN 44 H Creatinine 1.22 Est GFR ( Amer) 54 L Glucose 131 H Calcium 11.2 H TSH 0.26 L Free T4 2.17 Free T3 pg/mL 3.99 05/08/19 13:28 Blood Blood Culture - Final NO GROWTH IN 5 DAYS 05/10/19 16:15 Knee Fluid - Right Gram Stain - Final 05/10/19 16:15 Knee Fluid - Right Body Fluid Culture - Final NO AEROBIC OR ANAEROBIC ORGANISMS RECOVERED 05/08/19 12:26 Blood Blood Culture - Final NO GROWTH IN 5 DAYS 05/08/19 12:26 Creatine Kinase 70 Impressions: Chest X-Ray 05/13/19 00:00 IMPRESSION: Bulky right hilar mass as seen on prior PET-CT with small associated right pleural effusion. No acute airspace opacity. Assessment and Plan - Diagnosis (1) Tachycardia Is this a current diagnosis for this admission?: Yes Plan: Asymptomatic. Multifactorial secondary to large size right lung mass and dehydration. EKG demonstrated sinus tachycardia with a heart rate of 109. Chemistry confirms dehydration with creatinine of 1.22 up from baseline of 0.6 to, and BUN of 44 Thyroid panel is acceptable Cardiology service has already been consulted. Medications per their expertise. Continue IV fluids. I highly expect that the patient's tachycardia will persist despite resolution of her dehydration due to the patient's lung mass. (2) Fever Is this a current diagnosis for this admission?: Yes Plan: Likely multifactorial secondary to postsurgical atelectasis (as noted on chest x-ray), inflammatory related to recent knee procedure, and possibly her underlying lung mass T-max 99.9 last 48 hours. Leukocytosis is overall stable; has trended down from 19.4 to 13.8. The continued elevation is likely related to her recent right knee arthroscopy with subsequent hematoma development. Chest x-ray was negative. Urinalysis is negative. Blood and right knee fluid cultures all negative. She does not have signs of active infectious process at this time. Not clinically significant at this time. Incentive spirometer and flutter valve to bedside. Out of bed for meals if at all possible. Decreasing opiate medications. Tylenol as needed for comfort. (3) Diabetes Qualifiers: Diabetes mellitus type: type 2 Is this a current diagnosis for this admission?: Yes Plan: Accu-Cheks before meals and at bedtime with Humalog for sliding scale coverage. Continuing the patient's home dose Glimepiride. Holding metformin while admitted. Hypoglycemia protocol in place. (4) HTN (hypertension) Is this a current diagnosis for this admission?: Yes Plan: Normotensive at present. Continuing home dose losartan, Diovan, hydrochlorothiazide. Holding furosemide secondary to SOLEDAD. (5) Lung mass Is this a current diagnosis for this admission?: Yes Plan: Established with Dr. Gutierrez as an outpatient. Plans to travel to [place] to live with children while receiving chemotherapy following discharge. (6) SOLEDAD (acute kidney injury) Is this a current diagnosis for this admission?: Yes Plan: Creatinine is increased from 0.62 to 1.22 with associated bump of BUN from 21 to 44. Likely prerenal secondary to poor p.o. fluid intake, hypotension, (losartan, metformin, gabapentin) Continue IV fluids. Encourage p.o. fluids. Holding gabapentin, metformin, and furosemide Avoid nephrotoxic medications as able. Follow-up chemistry. (7) DVT (deep venous thrombosis) Qualifiers: DVT location: lower extremity Affected thrombotic vein of extremity: femo ral Chronicity: acute Laterality: right Qualified Code(s): I82.411 - Acute embolism and thrombosis of right femoral vein Is this a current diagnosis for this admission?: Yes Plan: Continue home dose Xarelto. - Time Time Spent with patient: 25-34 minutes Medications reviewed and adjusted accordingly: Yes
--- NOTE | 2019-05-13 23:12 | PDOC CONSULTATION ---
Consultation-Blank Consultation: CARDIOLOGY CONSULTATION by Dr. Stephanie Shi on 05/13/2019. Patient seen at 2 PM. 60 minutes spent on this patient more than 50% of time spent in direct patient care. REASON FOR CONSULTATION: Tachycardia . CONSULT REQUESTING PHYSICIAN: Dr. Barker, orthopedist. HISTORY OF PRESENT ILLNESS: Patient is a 64-year-old female with a history of right lung mass/cancer, hypertension and diabetes mellitus, admitted with an effusion of the right knee for which she had aspiration and subsequently had debridement. The patient was found to be tachycardic. The patient denies any chest pain or discomfort. There is no shortness of breath. She claims that she has intermittent wheezing since February 2019, but denies history of asthma. She has no PND orthopnea or palpitations. There is swelling in the right knee but no leg edema. The patient denies any history of coronary artery disease, [place] or anginal symptoms. There is no history of thyroid disease. The patient follows with Dr. Gutierrez for her right lung cancer. Of note the patient is on Lasix as well as hydrochlorothiazide, but there is no history of congestive heart failure. Her creatinine which was 0.6 on admission has gone up to 1.22. The patient clinically appears to be dehydrated. She also has low- grade fever. She denies any cough or sputum production. Past Medical History Cardiac Medical History: Reports: DVT, Hypertension Endocrine Medical History: Reports: Diabetes Mellitus Type 2, Obesity Renal/ Medical History: Reports: None Malignancy Medical History: Reports: Lung Cancer GI Medical History: Reports: None Musculoskeltal Medical History: Reports: Arthritis Psychiatric Medical History: Denies: Depression Past Surgical History Past Surgical History: Reports: Cholecystectomy, Hysterectomy, Orthopedic Surgery - Right knee arthroscopic Social History Information Source: Patient Lives with: Family Smoking Status: Former Smoker Electronic Cigarette use?: No Frequency of Alcohol Use: None Hx Recreational Drug Use: No Drugs: None Hx Prescription Drug Abuse: No - Advance Directive Resuscitation Status: Full Code Family History Family History: Reviewed & Not Pertinent, Arthritis, DM, Hypertension, Malignancy Parental Family History Reviewed: Yes Children Family History Reviewed: Yes Sibling(s) Family History Reviewed.: Yes Medication/Allergy Home Medications: Allopurinol [Zyloprim 300 mg Tablet] 300 mg PO DAILY 05/08/19 Celecoxib [Celebrex 200 mg Capsule] 200 mg PO Q12 05/08/19 Furosemide [Lasix 40 mg Tablet] 40 mg PO DAILY 05/08/19 Gabapentin [Neurontin] 600 mg PO Q8 05/08/19 Glimepiride [Amaryl 4 mg Tablet] 4 mg PO BID 05/08/19 Linaclotide [Linzess 145 Mcg Capsule] 145 mcg PO DAILY 05/08/19 Losartan Potassium [Cozaar 100 mg Tablet] 100 mg PO DAILY 05/08/19 Metformin HCl [Metformin HCl ER] 1,000 mg PO BIDBS 05/08/19 Oxycodone HCl [Oxy-Ir 5 mg Tablet] 10 mg PO Q8HP PRN 05/08/19 Oxycodone HCl/Acetaminophen [Oxycodone-Acetaminophen 10-325] 1 tab PO Q8HP PRN 05/08/19 Ranitidine HCl [Zantac] 150 mg PO BID 05/08/19 Rivaroxaban [Xarelto] 20 mg PO BID 05/08/19 Valsartan/Hydrochlorothiazide [Valsartan-Hctz 160-12.5 mg Tab] 1 tab PO DAILY 05/08/19 Hydrochlorothiazide [Hydrodiuril 12.5 mg Tablet] 12.5 mg PO DAILY 05/12/19 Allergies/Adverse Reactions: iodine Allergy (Verified 03/25/19 15:37) Review of Systems Constitutional: ABSENT: chills, fever(s), headache(s), weight gain, weight loss Eyes: ABSENT: visual disturbances Ears: ABSENT: hearing changes Cardiovascular: ABSENT: chest pain, dyspnea on exertion, edema, orthropnea, palpitations Respiratory: ABSENT: cough, hemoptysis Gastrointestinal: PRESENT: other - Poor appetite. ABSENT: abdominal pain, constipation, diarrhea, hematemesis, hematochezia, nausea, vomiting Genitourinary: ABSENT: dysuria, hematuria Musculoskeletal: ABSENT: joint swelling Integumentary: ABSENT: rash, wounds Neurological: ABSENT: abnormal gait, abnormal speech, confusion, dizziness, focal weakness, syncope Psychiatric: ABSENT: anxiety, depression, homidical ideation, suicidal ideation Endocrine: ABSENT: cold intolerance, heat intolerance, polydipsia, polyuria Hematologic/Lymphatic: ABSENT: easy bleeding, easy bruising Current Medications Acetaminophen (Tylenol 325 Mg Tablet) 650 mg PO Q6HP PRN PRN Reason: FOR PAIN OR TEMP Stop: 06/07/19 17:59 Allopurinol (Zyloprim 300 Mg Tablet) 300 mg PO DAILY ANGELIA Stop: 06/11/19 12:59 Last Admin: 05/13/19 12:16 Dose: 300 mg Documented by: Bisacodyl (Dulcolax 10 Mg Supp.Rect) 10 mg WA DAILYP PRN PRN Reason: UNRESOLVED CONSTIPATION Stop: 06/12/19 15:34 Celecoxib (Celebrex 200 Mg Capsule) 200 mg PO Q12 ANGELIA Stop: 06/11/19 21:59 Last Admin: 05/13/19 21:24 Dose: Not Given Documented by: Dextrose (Dextrose Inj 50% Syringe (25 Gm/50 Ml)) 12.5 gm IV PRN PRN; Protocol PRN Reason: FOR BG 50-69 IN ALERT PATIENT Stop: 06/12/19 15:10 Dextrose (Dextrose Inj 50% Syringe (25 Gm/50 Ml)) 25 gm IV PRN PRN; Protocol PRN Reason: PER PROTOCOL Stop: 06/12/19 15:10 Furosemide (Lasix 40 Mg Tablet) 40 mg PO DAILY ANGELIA Stop: 06/12/19 09:59 Last Admin: 05/13/19 09:36 Dose: 40 mg Documented by: Gabapentin (Neurontin 300 Mg Capsule) 600 mg PO Q8 ANGELIA Stop: 06/11/19 13:59 Last Admin: 05/13/19 13:46 Dose: 600 mg Documented by: Glimepiride (Amaryl 4 Mg Tablet) 4 mg PO BIDBS ANGELIA Stop: 06/11/19 16:59 Last Admin: 05/13/19 17:48 Dose: 4 mg Documented by: Glucagon (Glucagen Inj 1 Mg Vial) 1 mg IM PRN PRN; Protocol PRN Reason: Evaluate for BG < 70 Stop: 06/12/19 15:10 Glucose (Glutose 40% Gel 15 Gm Tube) 15 gm PO PRN PRN; Protocol PRN Reason: FOR BG 50-69 IN ALERT PATIENT Stop: 06/12/19 15:10 Glucose (Glutose 40% Gel 15 Gm Tube) 30 gm PO PRN PRN; Protocol PRN Reason: FOR BG < 50 IN ALERT PATIENT Stop: 06/12/19 15:10 Hydrochlorothiazide (Hydrodiuril 12.5 Mg Tablet) 12.5 mg PO DAILY ANGELIA Stop: 06/11/19 12:59 Last Admin: 05/13/19 09:35 Dose: 12.5 mg Documented by: Sodium Chloride (Nacl 0.9% 1000 Ml Iv Soln) 1,000 mls @ 60 mls/hr IV CONTINUOUS PRN PRN Reason: THIS MED IS NOT "PRN" Stop: 06/12/19 14:36 Last Admin: 05/13/19 15:16 Dose: 60 mls/hr Documented by: Insulin Human Lispro (Humalog Insulin 100 Unit/1 Ml 3 Ml Vial) 0 - 12 unit SUBCUT [facility]; Protocol Stop: 06/12/19 15:59 Last Admin: 05/13/19 21:20 Dose: Not Given Documented by: Levalbuterol HCl (Xopenex Neb 1.25 Mg/3 Ml Ampul) 1.25 mg NEB RTQ6HP PRN PRN Reason: Shortness Of Breath, wheezing Stop: 06/12/19 15:35 Losartan Potassium (Cozaar 50 Mg Tablet) 100 mg PO DAILY [facility] Stop: 06/11/19 12:59 Last Admin: 05/13/19 12:16 Dose: 100 mg Documented by: Morphine Sulfate (Morphine 10 Mg/Ml Inj) 1 mg IV Q6HP PRN PRN Reason: FOR BREAKTHROUGH PAIN Stop: 05/20/19 15:04 Ondansetron HCl (Zofran Odt 4 Mg Tablet) 4 mg PO Q6HP PRN PRN Reason: NAUSEA Stop: 06/07/19 16:11 Oxycodone HCl (Oxy-Ir 5 Mg Tablet) 5 mg PO Q4HP PRN PRN Reason: FOR PAIN SCALE 1-3 Stop: 05/15/19 16:10 Last Admin: 05/13/19 21:24 Dose: 5 mg Documented by: Oxycodone HCl (Oxy-Ir 5 Mg Tablet) 10 mg PO Q4HP PRN PRN Reason: FOR PAIN SCALE 4-5 Stop: 05/20/19 15:03 Patient Own Medication (Linaclotide) 145 mcg PO DAILY [facility] Stop: 06/12/19 09:59 Polyethylene Glycol (Miralax Powder 17 Gm/Packet) 17 gm PO DAILY [facility] Stop: 06/13/19 09:59 Rivaroxaban (Xarelto 10 Mg Tablet) 20 mg PO BIDBS [facility] Stop: 06/11/19 17:29 Last Admin: 05/13/19 17:47 Dose: 20 mg Documented by: Valsartan (Diovan 160 Mg Tablet) 160 mg PO DAILY ANGELIA Stop: 06/11/19 12:59 Last Admin: 05/13/19 12:16 Dose: 160 mg Documented by: Discontinued Medications Acetaminophen (Tylenol 325 Mg Tablet) 650 mg PO Q6HP PRN PRN Reason: MILD PAIN Stop: 06/07/19 17:59 Last Admin: 05/08/19 20:28 Dose: 650 mg Documented by: Bisacodyl (Dulcolax 10 Mg Supp.Rect) 10 mg WA NOW ONE Stop: 05/13/19 15:36 Last Admin: 05/13/19 17:50 Dose: 10 mg Documented by: Bupivacaine HCl (Sensorcaine 0.5% Mpf Inj 30 Ml Sdv) Confirm Administered Dose 30 ml .ROUTE .STK-MED ONE Stop: 05/10/19 15:58 Last Admin: 05/10/19 16:24 Dose: 30 ml Documented by: Diphenhydramine HCl (Benadryl Inj 50 Mg/1 Ml Vial) 12.5 mg IV .WHILE IN PACU PRN PRN Reason: ITCHING Stop: 05/10/19 19:58 Fentanyl Citrate (Sublimaze Inj/Pf 100 Mcg/2 Ml Ampule) Confirm Administered Dose 100 mcg .ROUTE .STK-MED ONE Stop: 05/10/19 15:49 Fentanyl Citrate (Sublimaze Inj/Pf 100 Mcg/2 Ml Ampule) 12.5 mcg IV .WHILE IN PACU PRN PRN Reason: PAIN SCALE OF 1 Stop: 05/10/19 19:58 Fentanyl Citrate (Sublimaze Inj/Pf 100 Mcg/2 Ml Ampule) 50 mcg IV .WHILE IN PACU PRN PRN Reason: PAIN SCALE 4-5 Stop: 05/10/19 19:58 Furosemide (Lasix 40 Mg Tablet) 40 mg PO DAILYP PRN PRN Reason: SWELLING Stop: 06/11/19 11:46 Last Admin: 05/12/19 13:18 Dose: 40 mg Documented by: Hydrochlorothiazide (Hydrodiuril 12.5 Mg Tablet) 12.5 mg PO DAILY ANGELIA Stop: 06/11/19 12:59 Last Admin: 05/12/19 13:06 Dose: 12.5 mg Documented by: Lactated Ringer's (Lactated Ringers 1000 Ml Iv Soln) 1,000 mls @ 125 mls/hr IV CONTINUOUS PRN PRN Reason: THIS MED IS NOT "PRN" Stop: 06/07/19 16:07 Last Infusion: 05/10/19 07:50 Dose: Infused Documented by: Ceftriaxone Sodium/Dextrose (Rocephin Rtu 2 Gm/D5w 50 Ml Premix Bag) 2 gm in 50 mls @ 100 mls/hr IV QPM ANGELIA Stop: 05/15/19 17:59 Last Admin: 05/10/19 18:14 Dose: 100 mls/hr Documented by: Lactated Ringer's (Lactated Ringers 1000 Ml Iv Soln) 1,000 mls @ 150 mls/hr IV CONTINUOUS PRN PRN Reason: THIS MED IS NOT "PRN" Stop: 06/09/19 07:49 Last Infusion: 05/11/19 10:12 Dose: Infused Documented by: Ketamine HCl (Ketalar Inj 500 Mg/10 Ml Vial) Confirm Administered Dose 500 mg .ROUTE .STK-MED ONE Stop: 05/10/19 15:49 Lidocaine/Epinephrine (Xylocaine 1%/Epi 1:100,000 Inj 20 Ml Vial) Confirm Administered Dose 20 ml .ROUTE .STK-MED ONE Stop: 05/10/19 15:58 Last Admin: 05/10/19 16:24 Dose: 20 ml Documented by: Meperidine HCl (Demerol Inj 25 Mg/1 Ml Syringe) 12.5 mg IV .WHILE IN PACU PRN PRN Reason: Shivering Stop: 05/10/19 19:58 Midazolam HCl (Versed 2 Mg/2 Ml Inj) Confirm Administered Dose 2 mg .ROUTE .STK- MED ONE Stop: 05/10/19 15:50 Morphine Sulfate (Morphine 10 Mg/Ml Inj) 5 mg IV NOW ONE Stop: 05/08/19 11:36 Last Admin: 05/08/19 12:24 Dose: 5 mg Documented by: Morphine Sulfate (Morphine 10 Mg/Ml Inj) 5 mg IV NOW ONE Stop: 05/08/19 14:21 Last Admin: 05/08/19 14:36 Dose: 5 mg Documented by: Morphine Sulfate (Morphine 10 Mg/Ml Inj) 2 mg IV Q2HP PRN PRN Reason: FOR PAIN Stop: 05/17/19 07:49 Last Admin: 05/13/19 09:33 Dose: 2 mg Documented by: Morphine Sulfate (Morphine 10 Mg/Ml Inj) 3 mg IV .WHILE IN PACU PRN PRN Reason: FOR PAIN Stop: 05/10/19 19:58 Ondansetron HCl (Zofran Inj/Pf 4 Mg/2 Ml Sdv) 4 mg IV NOW ONE Stop: 05/08/19 11:36 Last Admin: 05/08/19 12:25 Dose: 4 mg Documented by: Ondansetron HCl (Zofran Inj/Pf 4 Mg/2 Ml Sdv) 4 mg IV NOW ONE Stop: 05/08/19 14:21 Last Admin: 05/08/19 14:36 Dose: 4 mg Documented by: Oxycodone HCl (Oxy-Ir 5 Mg Tablet) 5 mg PO Q4HP PRN PRN Reason: PAIN Stop: 05/15/19 16:10 Last Admin: 05/13/19 05:26 Dose: 5 mg Documented by: Oxycodone HCl (Oxycontin Sr 10 Mg Tablet) 20 mg PO Q12 ANGELIA Stop: 05/17/19 21:59 Last Admin: 05/13/19 12:16 Dose: 20 mg Documented by: Patient Own Medication (Metformin Hcl [Metformin Hcl Er]) 1,000 mg PO .BIDBS ANGELIA Stop: 06/11/19 16:59 Patient Own Medication (Oxycodone Hcl/Acetaminophen [Oxycodone-Acetaminophen 10- 325]) 1 tab PO .Q8HP PRN PRN Reason: PAIN Stop: 06/11/19 11:46 Promethazine HCl (Phenergan Inj 25 Mg/1 Ml Vial) 12.5 mg IV .WHILE IN PACU PRN PRN Reason: NAUSEA AND VOMITING Stop: 05/10/19 19:58 Propofol (Diprivan Inj 200 Mg/20 Ml Vial) Confirm Administered Dose 200 mg IV .STK-MED ONE Stop: 05/10/19 15:50 Rivaroxaban (Xarelto 10 Mg Tablet) 20 mg PO BID ANGELIA Stop: 06/11/19 17:59 Rivaroxaban (Xarelto 10 Mg Tablet) 20 mg PO BIDBS ANGELIA Stop: 06/11/19 21:59 Rivaroxaban (Xarelto 10 Mg Tablet) 20 mg PO NOW ONE Stop: 05/12/19 14:01 Last Admin: 05/12/19 18:18 Dose: Not Given Documented by: PHYSICAL EXAMINATION: The patient is mild to moderately obese. She appears to be slightly anxious. Selected Entries 05/13/19 11:47 Temperature 99.3 F Temperature Oral Source Pulse Rate 116 H Respiratory 20 Rate Blood Pressure 103/54 L Blood Pressure 70 Mean BP Location Left Arm BP Position Supine O2 Sat by Pulse 94 Oximetry Oxygen Flow 2.00 Rate Oxygen Delivery Nasal Cannula Method Head: Is asymptomatic normocephalic. EYES: Pupils equal round regular reactive light accommodation. Extraocular movements are normal. There is no clinical pallor. There is no scleral icterus. EARS: Tympanic membranes are intact. External auditory canals are clear. NOSE: There is no deviated nasal septum. There is no inflammation of the nasal mucous membrane. MOUTH: Mucous membranes of the mouth are very dry. Tongue is very dry there is no bleeding from the gums. THROAT: There is no redness of the oropharynx. There is no exudates. SKIN: There is decreased skin turgor. There is no petechia or ecchymosis. There is no yellowish discoloration of the skin. NECK: There is no goiter. There is no lymphadenopathy. Carotids are equal there is no bruits. There is no lymphadenopathy. THERE is no stare muscle respiration use. Trachea central. LUNGS: The right middle lobe shows diminished air entry. There are few dry crackles in the right middle lobe. There is a few end expiratory wheezing. In the right middle lobe. The rest of the lungs appear to be clear. There is no rales of CHF. HEART: S1-S2 is heard. There is no S3 gallop. There is no S4 gallop. There is systolic murmur left sternal border and apex. There is no murmur of significant mitral regurgitation or tricuspid regurgitation. There is no aortic stenosis or aortic regurgitation murmur. There is no rub. ABDOMEN: Is obese. There is no hepatospleno megaly. Bowel sounds are well heard. There is no tender areas of masses. EXTREMITIES: Femorals are diminished there is no femoral bruits. There is swelling of the right knee with which is bandaged. There is no pedal edema. There is no cyanosis or clubbing. Leg pulses slightly diminished. There is no DVT or cellulitis. BOOM MASTER: Patient is conscious awake alert oriented x3 with no focal deficit. PSYCHIATRIC: The patient appears to be slightly anxious. But the patient judgment insight are intact. Her affect appears to be slightly withdrawn. EKG: Sinus tachycardia LVH by voltage. Labs- Entire Visit 05/08/19 05/08/19 05/08/19 12:26 12:26 12:26 WBC 19.4 H RBC 4.21 Hgb 12.7 Hct 38.5 MCV 92 MCH 30.1 MCHC 32.9 RDW 14.3 H Plt Count 96 L Lymph % (Auto) 12.2 L [place] % (Auto) 6.2 Eos % (Auto) 0.1 Baso % (Auto) 0.4 Absolute Neuts (auto) 15.8 H Absolute Lymphs (auto) 2.4 Absolute Monos (auto) 1.2 Absolute Eos (auto) 0.0 Absolute Basos (auto) 0.1 Seg Neutrophils % 81.1 H ESR Sodium 138.1 Potassium 4.3 Chloride 102 Carbon Dioxide 20 L Anion Gap 16 BUN 49 H Creatinine 1.13 Est GFR ( Amer) 58 L Est GFR (MDRD) Non-Af 48 L Glucose 189 H POC Glucose Lactic Acid (Sepsis) 1.6 Uric Acid 4.8 Calcium 11.2 H Magnesium 1.7 Total Bilirubin 1.2 Direct Bilirubin 0.4 Neonat Total Bilirubin Not Reportable Neonat Direct Bilirubin Not Reportable Neonat Indirect Bili Not Reportable AST 77 H ALT 33 Alkaline Phosphatase 144 H Creatine Kinase 70 C-Reactive Protein Total Protein 7.0 Albumin 3.8 TSH Free T4 Free T3 pg/mL Urine Color Urine Appearance Urine pH Ur Specific [place] Urine Protein Urine Glucose (UA) Urine Ketones Urine Blood Urine Nitrite Urine Bilirubin Urine Urobilinogen Ur Leukocyte Esterase Urine WBC (Auto) Urine RBC (Auto) U Hyaline Cast (Auto) Urine Mucus (Auto) Urine Ascorbic Acid Fluid Type Fluid Source Fluid Color Fluid Appearance Fluid Viscosity Fluid WBC Fluid RBC Fluid Seg Neutrophils Fluid Lymphocytes Fluid Monocytes Fluid Eosinophils Fluid Basophils 05/08/19 05/08/19 05/08/19 12:26 12:26 12:45 WBC RBC Hgb Hct MCV MCH MCHC RDW Plt Count Lymph % (Auto) [place] % (Auto) Eos % (Auto) Baso % (Auto) Absolute Neuts (auto) Absolute Lymphs (auto) Absolute Monos (auto) Absolute Eos (auto) Absolute Basos (auto) Seg Neutrophils % ESR 18 Sodium Potassium Chloride Carbon Dioxide Anion Gap BUN Creatinine Est GFR ( Amer) Est GFR (MDRD) Non-Af Glucose POC Glucose Lactic Acid (Sepsis) Uric Acid Calcium Magnesium Total Bilirubin Direct Bilirubin Neonat Total Bilirubin Neonat Direct Bilirubin Neonat Indirect Bili AST ALT Alkaline Phosphatase Creatine Kinase C-Reactive Protein 165.7 H Total Protein Albumin TSH Free T4 Free T3 pg/mL Urine Color YELLOW Urine Appearance CLEAR Urine pH 5.0 Ur Specific [place] 1.018 Urine Protein NEGATIVE Urine Glucose (UA) NEGATIVE Urine Ketones TRACE H Urine Blood NEGATIVE Urine Nitrite NEGATIVE Urine Bilirubin NEGATIVE Urine Urobilinogen NEGATIVE Ur Leukocyte Esterase NEGATIVE Urine WBC (Auto) 0 Urine RBC (Auto) 1 U Hyaline Cast (Auto) 4 Urine Mucus (Auto) OCC Urine Ascorbic Acid NEGATIVE Fluid Type Fluid Source Fluid Color Fluid Appearance Fluid Viscosity Fluid WBC Fluid RBC Fluid Seg Neutrophils Fluid Lymphocytes Fluid Monocytes Fluid Eosinophils Fluid Basophils 05/09/19 05/09/19 05/10/19 04:42 04:42 01:18 WBC 18.6 H RBC 3.77 Hgb 11.4 L Hct 34.6 L MCV 92 MCH 30.1 MCHC 32.9 RDW 14.4 H Plt Count 85 L Lymph % (Auto) 13.8 [place] % (Auto) 7.6 Eos % (Auto) 0.3 Baso % (Auto) 0.1 Absolute Neuts (auto) 14.6 H Absolute Lymphs (auto) 2.6 Absolute Monos (auto) 1.4 Absolute Eos (auto) 0.1 Absolute Basos (auto) 0.0 Seg Neutrophils % 78.2 H ESR 21 Sodium 136.4 L Potassium 4.0 Chloride 104 Carbon Dioxide 24 Anion Gap 8 BUN 50 H Creatinine 0.96 Est GFR ( Amer) > 60 Est GFR (MDRD) Non-Af 58 L Glucose 167 H POC Glucose 191 H Lactic Acid (Sepsis) Uric Acid Calcium 11.1 H Magnesium Total Bilirubin Direct Bilirubin Neonat Total Bilirubin Neonat Direct Bilirubin Neonat Indirect Bili AST ALT Alkaline Phosphatase Creatine Kinase C-Reactive Protein 146.9 H Total Protein Albumin TSH Free T4 Free T3 pg/mL Urine Color Urine Appearance Urine pH Ur Specific [place] Urine Protein Urine Glucose (UA) Urine Ketones Urine Blood Urine Nitrite Urine Bilirubin Urine Urobilinogen Ur Leukocyte Esterase Urine WBC (Auto) Urine RBC (Auto) U Hyaline Cast (Auto) Urine Mucus (Auto) Urine Ascorbic Acid Fluid Type Fluid Source Fluid Color Fluid Appearance Fluid Viscosity Fluid WBC Fluid RBC Fluid Seg Neutrophils Fluid Lymphocytes Fluid Monocytes Fluid Eosinophils Fluid Basophils 05/10/19 05/11/19 05/11/19 16:15 05:28 05:28 WBC 12.4 H RBC 3.48 L Hgb 10.8 L Hct 31.7 L MCV 91 MCH 31.0 MCHC 34.0 RDW 14.2 H Plt Count 74 L Lymph % (Auto) [place] % (Auto) Eos % (Auto) Baso % (Auto) Absolute Neuts (auto) Absolute Lymphs (auto) Absolute Monos (auto) Absolute Eos (auto) Absolute Basos (auto) Seg Neutrophils % ESR 16 Sodium 136.6 L Potassium 4.0 Chloride 105 Carbon Dioxide 27 Anion Gap 5 BUN 21 H Creatinine 0.62 Est GFR ( Amer) > 60 Est GFR (MDRD) Non-Af > 60 Glucose 167 H POC Glucose Lactic Acid (Sepsis) Uric Acid Calcium 10.0 Magnesium Total Bilirubin Direct Bilirubin Neonat Total Bilirubin Neonat Direct Bilirubin Neonat Indirect Bili AST ALT Alkaline Phosphatase Creatine Kinase C-Reactive Protein 63.6 H Total Protein Albumin TSH Free T4 Free T3 pg/mL Urine Color Urine Appearance Urine pH Ur Specific [place] Urine Protein Urine Glucose (UA) Urine Ketones Urine Blood Urine Nitrite Urine Bilirubin Urine Urobilinogen Ur Leukocyte Esterase Urine WBC (Auto) Urine RBC (Auto) U Hyaline Cast (Auto) Urine Mucus (Auto) Urine Ascorbic Acid Fluid Type SYNOVIAL Fluid Source KNEE Fluid Color RED Fluid Appearance TURBID Fluid Viscosity SLIGHTLY VISCOUS Fluid WBC 6222 Fluid RBC [id number] Fluid Seg Neutrophils 83 Fluid Lymphocytes 14 Fluid Monocytes 3 Fluid Eosinophils 0 Fluid Basophils 0 05/12/19 05/12/19 05/12/19 11:20 15:58 21:35 WBC RBC Hgb Hct MCV MCH MCHC RDW Plt Count Lymph % (Auto) [place] % (Auto) Eos % (Auto) Baso % (Auto) Absolute Neuts (auto) Absolute Lymphs (auto) Absolute Monos (auto) Absolute Eos (auto) Absolute Basos (auto) Seg Neutrophils % ESR Sodium Potassium Chloride Carbon Dioxide Anion Gap BUN Creatinine Est GFR ( Amer) Est GFR (MDRD) Non-Af Glucose POC Glucose 178 H 158 H 138 H Lactic Acid (Sepsis) Uric Acid Calcium Magnesium Total Bilirubin Direct Bilirubin Neonat Total Bilirubin Neonat Direct Bilirubin Neonat Indirect Bili AST ALT Alkaline Phosphatase Creatine Kinase C-Reactive Protein Total Protein Albumin TSH Free T4 Free T3 pg/mL Urine Color Urine Appearance Urine pH Ur Specific [place] Urine Protein Urine Glucose (UA) Urine Ketones Urine Blood Urine Nitrite Urine Bilirubin Urine Urobilinogen Ur Leukocyte Esterase Urine WBC (Auto) Urine RBC (Auto) U Hyaline Cast (Auto) Urine Mucus (Auto) Urine Ascorbic Acid Fluid Type Fluid Source Fluid Color Fluid Appearance Fluid Viscosity Fluid WBC Fluid RBC Fluid Seg Neutrophils Fluid Lymphocytes Fluid Monocytes Fluid Eosinophils Fluid Basophils 05/13/19 05/13/19 05/13/19 06:30 11:48 15:55 WBC 13.8 H RBC 3.42 L Hgb 10.3 L Hct 31.6 L MCV 92 MCH 30.2 MCHC 32.7 RDW 13.9 Plt Count 87 L Lymph % (Auto) [place] % (Auto) Eos % (Auto) Baso % (Auto) Absolute Neuts (auto) Absolute Lymphs (auto) Absolute Monos (auto) Absolute Eos (auto) Absolute Basos (auto) Seg Neutrophils % ESR Sodium Potassium Chloride Carbon Dioxide Anion Gap BUN Creatinine Est GFR ( Amer) Est GFR (MDRD) Non-Af Glucose POC Glucose 100 93 Lactic Acid (Sepsis) Uric Acid Calcium Magnesium Total Bilirubin Direct Bilirubin Neonat Total Bilirubin Neonat Direct Bilirubin Neonat Indirect Bili AST ALT Alkaline Phosphatase Creatine Kinase C-Reactive Protein Total Protein Albumin TSH Free T4 Free T3 pg/mL Urine Color Urine Appearance Urine pH Ur Specific [place] Urine Protein Urine Glucose (UA) Urine Ketones Urine Blood Urine Nitrite Urine Bilirubin Urine Urobilinogen Ur Leukocyte Esterase Urine WBC (Auto) Urine RBC (Auto) U Hyaline Cast (Auto) Urine Mucus (Auto) Urine Ascorbic Acid Fluid Type Fluid Source Fluid Color Fluid Appearance Fluid Viscosity Fluid WBC Fluid RBC Fluid Seg Neutrophils Fluid Lymphocytes Fluid Monocytes Fluid Eosinophils Fluid Basophils 05/13/19 05/13/19 05/13/19 15:55 15:55 16:27 WBC RBC Hgb Hct MCV MCH MCHC RDW Plt Count Lymph % (Auto) [place] % (Auto) Eos % (Auto) Baso % (Auto) Absolute Neuts (auto) Absolute Lymphs (auto) Absolute Monos (auto) Absolute Eos (auto) Absolute Basos (auto) Seg Neutrophils % ESR Sodium 135.0 L Potassium 4.1 Chloride 101 Carbon Dioxide 25 Anion Gap 9 BUN 44 H Creatinine 1.22 Est GFR ( Amer) 54 L Est GFR (MDRD) Non-Af 44 L Glucose 131 H POC Glucose 110 Lactic Acid (Sepsis) Uric Acid Calcium 11.2 H Magnesium Total Bilirubin Direct Bilirubin Neonat Total Bilirubin Neonat Direct Bilirubin Neonat Indirect Bili AST ALT Alkaline Phosphatase Creatine Kinase C-Reactive Protein Total Protein Albumin TSH 0.26 L Free T4 2.17 Free T3 pg/mL 3.99 Urine Color Urine Appearance Urine pH Ur Specific [place] Urine Protein Urine Glucose (UA) Urine Ketones Urine Blood Urine Nitrite Urine Bilirubin Urine Urobilinogen Ur Leukocyte Esterase Urine WBC (Auto) Urine RBC (Auto) U Hyaline Cast (Auto) Urine Mucus (Auto) Urine Ascorbic Acid Fluid Type Fluid Source Fluid Color Fluid Appearance Fluid Viscosity Fluid WBC Fluid RBC Fluid Seg Neutrophils Fluid Lymphocytes Fluid Monocytes Fluid Eosinophils Fluid Basophils 05/13/19 21:07 WBC RBC Hgb Hct MCV MCH MCHC RDW Plt Count Lymph % (Auto) [place] % (Auto) Eos % (Auto) Baso % (Auto) Absolute Neuts (auto) Absolute Lymphs (auto) Absolute Monos (auto) Absolute Eos (auto) Absolute Basos (auto) Seg Neutrophils % ESR Sodium Potassium Chloride Carbon Dioxide Anion Gap BUN Creatinine Est GFR ( Amer) Est GFR (MDRD) Non-Af Glucose POC Glucose 106 Lactic Acid (Sepsis) Uric Acid Calcium Magnesium Total Bilirubin Direct Bilirubin Neonat Total Bilirubin Neonat Direct Bilirubin Neonat Indirect Bili AST ALT Alkaline Phosphatase Creatine Kinase C-Reactive Protein Total Protein Albumin TSH Free T4 Free T3 pg/mL Urine Color Urine Appearance Urine pH Ur Specific [place] Urine Protein Urine Glucose (UA) Urine Ketones Urine Blood Urine Nitrite Urine Bilirubin Urine Urobilinogen Ur Leukocyte Esterase Urine WBC (Auto) Urine RBC (Auto) U Hyaline Cast (Auto) Urine Mucus (Auto) Urine Ascorbic Acid Fluid Type Fluid Source Fluid Color Fluid Appearance Fluid Viscosity Fluid WBC Fluid RBC Fluid Seg Neutrophils Fluid Lymphocytes Fluid Monocytes Fluid Eosinophils Fluid Basophils Chest X-Ray 05/13/19 00:00 IMPRESSION: Bulky right hilar mass as seen on prior PET-CT with small associated right pleural effusion. No acute airspace opacity. IMPRESSION/RECOMMENDATION: 1. SINUS TACHYCARDIA: This is a physiological response to pathological condition. This is most likely secondary to patient's dehydration, low-grade temperature, and right lung mass. Would strongly recommend treating the underlying cause. Would strongly recommend hospitalist consultation. 2. Dehydration: Would recommend stopping the patient hydrochlorothiazide. That the patient required Lasix. Would recommend starting the patient on IV fluids normal saline at 60 mL/h for a liter. 3. Mild renal insufficiency: Prerenal azotemia secondary to patient's dehydration. Would hydrate the patient. 4. Right knee effusion status post aspiration and debridement 5. Hypertension.: Continue antihypertensives. 6. Diabetes mellitus: Continue current treatment. 7. Right lung cancer: Patient has following up with her oncologist. Medications reviewed medications added and medications adjusted. Medical regimen and management plan discussed with the orthopedic surgeon covering Dr. Jacome. Medical decision making is of moderate complexity. 60 minutes spent on this patient more than 50% of time spent in direct patient care. There is no acute cardiac problem here and hence will sign off.
[2019-05-14] MEDS: OXYCODONE HCL IR 5 MG TABLET PO PRN ×3 (05:18→20:14)
[2019-05-14] MEDS: NORMAL SALINE 1000 ML 1,000 ML IV PRN ×3 (06:57→23:14)
[2019-05-14 06:59] LABS: ANION GAP 9 (5-19); BLOOD UREA NITROGEN 52 mg/dL (7-20); CALCIUM 10.9 mg/dL (8.4-10.2); CARBON DIOXIDE 24 mmol/L (22-30); CHLORIDE 101 mmol/L (98-107); GLUCOSE 99 mg/dL (75-110); POTASSIUM 3.8 mmol/L (3.6-5.0)
[2019-05-14] MEDS: INSULIN LISPRO 100 UNIT/ML 3 ML VIAL SUBCUT SCH ×4 (07:55→21:08)
[2019-05-14] MEDS: RIVAROXABAN 10 MG TABLET PO SCH ×2 (08:09→16:43)
[2019-05-14] MEDS: GLIMEPIRIDE 4 MG TABLET PO SCH (08:09)
--- NOTE | 2019-05-14 09:23 | PDOC PROGRESS REPORT ---
Subjective Progress Note for:: 05/14/19 Reason For Visit: RIGHT KNEE PAIN 64-year-old female status post right knee arthroscopic debridement for what appears to be aseptic hemorrhagic effusion. Patient with progress yesterday and with asymptomatic tachycardia last night. Physical Exam Vital Signs: Temp Pulse Resp BP Pulse Ox 37.3 C 118 H 18 124/53 L 94 05/14/19 00:00 05/14/19 00:00 05/14/19 00:00 05/14/19 00:00 05/14/19 05:35 Intake & Output 05/13/19 05/14/19 05/15/19 06:59 06:59 06:59 Intake Total 880 1541 Output Total 200 Balance 880 1341 Weight 105.6 kg 109.1 kg Physical Exam: Middle-aged white female lying in a hospital bed. Patient is alert, oriented, and appropriate. General appearance: PRESENT: no acute distress Head exam: PRESENT: normocephalic Respiratory exam: PRESENT: unlabored Cardiovascular exam: PRESENT: tachycardia Pulses: PRESENT: +1 pedal pulses bilateral Vascular exam: PRESENT: normal capillary refill Extremities exam: PRESENT: other - Right knee dressing clean dry and intact Neurological exam: PRESENT: alert, awake, oriented to person, oriented to place, oriented to time, oriented to situation, CN II-XII grossly intact. ABSENT: motor sensory deficit Psychiatric exam: PRESENT: appropriate affect, normal mood. ABSENT: homicidal ideation, suicidal ideation Skin exam: PRESENT: dry, intact, warm. ABSENT: cyanosis, rash Results Laboratory Results: 05/13/19 15:55 05/14/19 06:14 05/13/19 05/13/19 05/13/19 15:55 15:55 15:55 WBC 13.8 H RBC 3.42 L Hgb 10.3 L Hct 31.6 L MCV 92 MCH 30.2 MCHC 32.7 RDW 13.9 Plt Count 87 L Sodium 135.0 L Potassium 4.1 Chloride 101 Carbon Dioxide 25 Anion Gap 9 BUN 44 H Creatinine 1.22 Est GFR ( Amer) 54 L Glucose 131 H Calcium 11.2 H TSH 0.26 L Free T4 2.17 Free T3 pg/mL 3.99 05/14/19 06:14 WBC RBC Hgb Hct MCV MCH MCHC RDW Plt Count Sodium 133.9 L Potassium 3.8 Chloride 101 Carbon Dioxide 24 Anion Gap 9 BUN 52 H Creatinine 1.47 H Est GFR ( Amer) 43 L Glucose 99 Calcium 10.9 H TSH Free T4 Free T3 pg/mL 05/08/19 13:28 Blood Blood Culture - Final NO GROWTH IN 5 DAYS 05/10/19 16:15 Knee Fluid - Right Gram Stain - Final 05/10/19 16:15 Knee Fluid - Right Body Fluid Culture - Final NO AEROBIC OR ANAEROBIC ORGANISMS RECOVERED 05/08/19 12:26 Blood Blood Culture - Final NO GROWTH IN 5 DAYS 05/08/19 12:26 Creatine Kinase 70 Impressions: Chest X-Ray 05/13/19 00:00 IMPRESSION: Bulky right hilar mass as seen on prior PET-CT with small associat ed right pleural effusion. No acute airspace opacity. Status: Imported from PACS Assessment & Plan - Diagnosis (1) Effusion, right knee Is this a current diagnosis for this admission?: Yes Plan: Continue efforts for mobilization with physical therapy. retirement facility placement pending. - Time Time Spent with patient: 15-24 minutes Anticipated discharge: SNF Within: when bed available
[2019-05-14] MEDS ORDERED: OXYCODONE HCL IR 5 MG TABLET PO PRN (09:49)
[2019-05-14] MEDS: VALSARTAN 160 MG TABLET PO SCH (10:11)
[2019-05-14] MEDS: CELECOXIB 200 MG CAPSULE PO SCH ×2 (10:11→21:08)
[2019-05-14] MEDS: ALLOPURINOL 300 MG TABLET PO SCH (10:11)
[2019-05-14] MEDS: POLYETHYLENE GLYCOL 3350 POWDER 17 GM/1 PACKET PO SCH (10:11)
--- NOTE | 2019-05-14 13:54 | PDOC PROGRESS REPORT ---
Subjective Progress Note for:: 05/14/19 Subjective:: The patient is a 64-year-old female with past medical history of hypertension, DM 2, obesity, lung cancer, and arthritis who was admitted to the orthopedic service. Hospitalist service consulted for tachycardia, SOLEDAD, medication management. Patient was seen on morning rounds. She is found sitting upright in bed on supplemental oxygen via nasal cannula 2 L/min. She is not home O2 dependent. She denies dyspnea and cannot recall why she was placed on oxygen early this morning. She states that she is feeling well and that her only complaint at present is continued frustration with her limited mobility related to right knee pain. She specifically denies fever, chills, chest pain, palpitations, dyspnea, orthopnea, cough, abdominal pain, nausea vomiting diarrhea. Ports that she is voiding without difficulty. She has no new questions or concerns. No concerns per nursing. Reason For Visit: RIGHT KNEE PAIN Physical Exam Vital Signs: Temp Pulse Resp BP Pulse Ox 99.2 F 118 H 18 124/53 L 94 05/14/19 00:00 05/14/19 00:00 05/14/19 00:00 05/14/19 00:00 05/14/19 05:35 Intake & Output 05/13/19 05/14/19 05/15/19 06:59 06:59 06:59 Intake Total 880 1541 Output Total 200 Balance 880 1341 Weight 105.6 kg 109.1 kg General appearance: PRESENT: no acute distress, cooperative, obese, well- developed, well-nourished Head exam: PRESENT: atraumatic, normocephalic Eye exam: PRESENT: conjunctiva pink, EOMI, PERRLA. ABSENT: scleral icterus Ear exam: PRESENT: normal external ear exam Mouth exam: PRESENT: moist, tongue midline Respiratory exam: PRESENT: clear to auscultation shivam, decreased breath sounds - Decreased right middle and lower durán, symmetrical, unlabored, wheezes - Scant wheeze to right middle lobe. ABSENT: rales, rhonchi Cardiovascular exam: PRESENT: RRR, +S1, +S2, tachycardia. ABSENT: diastolic murmur, rubs, systolic murmur Pulses: PRESENT: normal dorsalis pedis pul Vascular exam: PRESENT: normal capillary refill GI/Abdominal exam: PRESENT: normal bowel sounds, soft. ABSENT: distended, guarding, mass, organolmegaly, rebound, tenderness Rectal exam: PRESENT: deferred Extremities exam: PRESENT: joint swelling - Right knee, tenderness. ABSENT: calf tenderness, clubbing, pedal edema Neurological exam: PRESENT: alert, awake, oriented to person, oriented to place, oriented to time, oriented to situation, CN II-XII grossly intact. ABSENT: motor sensory deficit Psychiatric exam: PRESENT: appropriate affect, normal mood. ABSENT: homicidal ideation, suicidal ideation Skin exam: PRESENT: dry, intact, warm. ABSENT: cyanosis, rash Results Laboratory Results: 05/13/19 15:55 05/14/19 06:14 05/13/19 05/13/19 05/13/19 15:55 15:55 15:55 WBC 13.8 H RBC 3.42 L Hgb 10.3 L Hct 31.6 L MCV 92 MCH 30.2 MCHC 32.7 RDW 13.9 Plt Count 87 L Sodium 135.0 L Potassium 4.1 Chloride 101 Carbon Dioxide 25 Anion Gap 9 BUN 44 H Creatinine 1.22 Est GFR ( Amer) 54 L Glucose 131 H Calcium 11.2 H TSH 0.26 L Free T4 2.17 Free T3 pg/mL 3.99 05/14/19 06:14 WBC RBC Hgb Hct MCV MCH MCHC RDW Plt Count Sodium 133.9 L Potassium 3.8 Chloride 101 Carbon Dioxide 24 Anion Gap 9 BUN 52 H Creatinine 1.47 H Est GFR ( Amer) 43 L Glucose 99 Calcium 10.9 H TSH Free T4 Free T3 pg/mL 05/08/19 13:28 Blood Blood Culture - Final NO GROWTH IN 5 DAYS 05/10/19 16:15 Knee Fluid - Right Gram Stain - Final 05/10/19 16:15 Knee Fluid - Right Body Fluid Culture - Final NO AEROBIC OR ANAEROBIC ORGANISMS RECOVERED 05/08/19 12:26 Blood Blood Culture - Final NO GROWTH IN 5 DAYS 05/08/19 12:26 Creatine Kinase 70 Impressions: Chest X-Ray 05/13/19 00:00 IMPRESSION: Bulky right hilar mass as seen on prior PET-CT with small associated right pleural effusion. No acute airspace opacity. Assessment and Plan - Diagnosis (1) Tachycardia Is this a current diagnosis for this admission?: Yes Plan: Asymptomatic. Multifactorial secondary to large size right lung mass and dehydration. EKG demonstrated sinus tachycardia with a heart rate of 109. Chemistry confirms dehydration with creatinine of 1.22 up from baseline of 0.6 to, and BUN of 44 Thyroid panel is acceptable Cardiology service was consulted. Discussed with Dr. Talavera today; reviewed medications. Cardiology has signed off Continue IV fluids. I highly expect that the patient's tachycardia will persist despite resolution of her dehydration due to the patient's lung mass. (2) Fever Is this a current diagnosis for this admission?: Yes Plan: Likely multifactorial secondary to postsurgical atelectasis (as noted on chest x-ray), inflammatory related to recent knee procedure, and possibly her underlying lung mass T-max 99.9 last 48 hours. Leukocytosis is overall stable; has trended down from 19.4 to 13.8. The continued elevation is likely related to her recent right knee arthroscopy with subsequent hematoma development. Chest x-ray was negative. Urinalysis is negative. Blood and right knee fluid cultures all negative. She does not have signs of active infectious process at this time. Not clinically significant at this time. Incentive spirometer and flutter valve to bedside. Out of bed for meals if at a ll possible. Have decreased opiate medications. Tylenol as needed for comfort. (3) Diabetes Qualifiers: Diabetes mellitus type: type 2 Is this a current diagnosis for this admission?: Yes Plan: Hypoglycemia episode this morning; will hold glimepiride while admitted. Holding metformin Accu-Cheks before meals and at bedtime with Humalog for sliding scale coverage. Hypoglycemia protocol in place. (4) HTN (hypertension) Is this a current diagnosis for this admission?: Yes Plan: Normotensive at present. Continuing home dose Diovan. Discontinued losartan. Holding hydralazine and furosemide secondary to SOLEDAD. (5) Lung mass Is this a current diagnosis for this admission?: Yes Plan: Established with Dr. Gutierrez as an outpatient. Plans to travel to [place] to live with children while receiving chemotherapy following discharge. (6) SOLEDAD (acute kidney injury) Is this a current diagnosis for this admission?: Yes Plan: Creatinine is increased from 0.62 to 1.47 with associated bump of BUN from 21 to 52 Likely prerenal secondary to poor p.o. fluid intake, hypotension, (losartan, metformin, gabapentin) Continue IV fluids. Encourage p.o. fluids. Holding gabapentin, metformin, hydrochlorothiazide, furosemide, and allopurinol. Have discontinued losartan. Avoid nephrotoxic medications as able. Strict I&O's. Post void bladder scan Follow-up chemistry. (7) DVT (deep venous thrombosis) Qualifiers: DVT location: lower extremity Affected thrombotic vein of extremity: femoral Chronicity: acute Laterality: right Qualified Code(s): I82.411 - Acute embolism and thrombosis of right femoral vein Is this a current diagnosis for this admission?: Yes Plan: Continue home dose Xarelto. - Time Time Spent with patient: 25-34 minutes Medications reviewed and adjusted accordingly: Yes Anticipated discharge: SNF Within: within 48 hours - Improved creatinine/BUN
[2019-05-15] MEDS: OXYCODONE HCL IR 5 MG TABLET PO PRN ×3 (04:18→14:05)
[2019-05-15] MEDS: NORMAL SALINE 1000 ML 1,000 ML IV PRN (05:33)
[2019-05-15 06:06] LABS: CALCIUM 10.7 mg/dL (8.4-10.2); CARBON DIOXIDE 25 mmol/L (22-30); CHLORIDE 107 mmol/L (98-107); GLUCOSE 73 mg/dL (75-110); POTASSIUM 4.1 mmol/L (3.6-5.0)
[2019-05-15 06:24] LABS: ANION GAP 5 (5-19); BLOOD UREA NITROGEN 29 mg/dL (7-20)
[2019-05-15] MEDS: INSULIN LISPRO 100 UNIT/ML 3 ML VIAL SUBCUT SCH ×4 (08:04→21:38)
[2019-05-15] MEDS: RIVAROXABAN 10 MG TABLET PO SCH ×2 (08:31→18:19)
[2019-05-15] MEDS: POLYETHYLENE GLYCOL 3350 POWDER 17 GM/1 PACKET PO SCH (09:47)
[2019-05-15] MEDS: CELECOXIB 200 MG CAPSULE PO SCH ×2 (09:49→21:38)
[2019-05-15] MEDS: VALSARTAN 160 MG TABLET PO SCH (09:49)
[2019-05-15] MEDS ORDERED: METOPROLOL TARTRATE PF/INJ 5 MG/5 ML SDV IV ONE ×2 (11:31→16:37)
--- NOTE | 2019-05-15 14:49 | PDOC PROGRESS REPORT ---
Subjective Progress Note for:: 05/15/19 Subjective:: The patient is a 64-year-old female with past medical history of hypertension, DM 2, obesity, lung cancer, and arthritis who was admitted to the orthopedic service. Hospitalist service consulted for tachycardia, SOLEDAD, medication management. Patient was seen on morning rounds. She is found sitting upright in bed on supplemental oxygen via nasal cannula 2 L/min. She is not home O2 dependent. The oxygen was turned off and the patient continued to maintain oxygen saturations in the low to mid 90s on room air. Overnight pulse oximetry was completed yesterday while on room air; she did not have any desaturation events. She reports palpitations and anxiety today. She specifically denies fever, chills, chest pain, dyspnea, orthopnea, cough, abdominal pain, nausea vomiting diarrhea. She has no new questions or concerns. No concerns per nursing. Reason For Visit: RIGHT KNEE PAIN Physical Exam Vital Signs: Temp Pulse Resp BP Pulse Ox 98.2 F 128 H 21 H 169/69 H 93 05/15/19 11:16 05/15/19 11:16 05/15/19 11:16 05/15/19 11:16 05/15/19 11:16 Pulse Oximeter Nocturnal Start: 05/14/19 13:35 Freq: RTQ4 Status: Complete Protocol: Document 05/15/19 07:26 CMI (Rec: 05/15/19 07:27 CMI [id number]) Nocturnal Pulse Oximetry Equipment Usage Equipment Discontinued Continuous SpO2 Machine # 5 Intake & Output 05/14/19 05/15/19 05/16/19 06:59 06:59 06:59 Intake Total 1541 2348 1743 Output Total 200 2800 Balance 1341 -452 1743 Weight 109.1 kg 111.6 kg General appearance: PRESENT: no acute distress, cooperative, obese, well- developed, well-nourished Head exam: PRESENT: atraumatic, normocephalic Eye exam: PRESENT: conjunctiva pink, EOMI, PERRLA. ABSENT: scleral icterus Ear exam: PRESENT: normal external ear exam Mouth exam: PRESENT: moist, tongue midline Respiratory exam: PRESENT: clear to auscultation shivam, symmetrical, unlabored. ABSENT: rales, rhonchi, wheezes Cardiovascular exam: PRESENT: RRR, +S1, +S2, tachycardia - HR 120-130. ABSENT: diastolic murmur, rubs, systolic murmur Pulses: PRESENT: normal dorsalis pedis pul Vascular exam: PRESENT: normal capillary refill GI/Abdominal exam: PRESENT: normal bowel sounds, soft. ABSENT: distended, guarding, mass, organolmegaly, rebound, tenderness Rectal exam: PRESENT: deferred Extremities exam: PRESENT: joint swelling - right knee, tenderness - right knee. ABSENT: calf tenderness, clubbing, pedal edema Neurological exam: PRESENT: alert, awake, oriented to person, oriented to place, oriented to time, oriented to situation, CN II-XII grossly intact. ABSENT: motor sensory deficit Psychiatric exam: PRESENT: appropriate affect, normal mood. ABSENT: homicidal ideation, suicidal ideation Skin exam: PRESENT: dry, intact, warm. ABSENT: cyanosis, rash Results Laboratory Results: 05/13/19 15:55 05/15/19 05:24 05/15/19 05:24 Sodium 137.0 Potassium 4.1 Chloride 107 Carbon Dioxide 25 Anion Gap 5 BUN 29 H D Creatinine 0.74 Est GFR ( Amer) > 60 Glucose 73 L Calcium 10.7 H 05/08/19 12:26 Creatine Kinase 70 Impressions: Chest X-Ray 05/13/19 00:00 IMPRESSION: Bulky right hilar mass as seen on prior PET-CT with small associated right pleural effusion. No acute airspace opacity. Assessment and Plan - Diagnosis (1) Tachycardia Is this a current diagnosis for this admission?: Yes Plan: Asymptomatic. Multifactorial secondary to large size right lung mass and dehydration. EKG demonstrated sinus tachycardia with a heart rate of 109. SOLEDAD has resolved Thyroid panel is acceptable Cardiology service was consulted. Discussed with Dr. Talavera today; reviewed medications. Cardiology has signed off Will trial Lopressor 5 mg IV x 1 Start Metoprolol twice daily; dose depending on Lopressor effect. I highly expect that the patient's tachycardia will persist despite resolution of her dehydration due to the patient's lung mass. (2) Fever Is this a current diagnosis for this admission?: Yes Plan: Resolved; Tmax 99.2 last 48 hours Likely multifactorial secondary to postsurgical atelectasis (as noted on chest x-ray), inflammatory related to recent knee procedure, and possibly her underlying lung mass Leukocytosis is overall stable; has trended down from 19.4 to 13.8. The continued elevation is likely related to her recent right knee arthroscopy with subsequent hematoma development. Chest x-ray was negative. Urinalysis is negative. Blood and right knee fluid cultures all negative. She does not have signs of active infectious process at this time. Not clinically significant at this time. Incentive spirometer and flutter valve to bedside. Out of bed for meals if at all possible. Have decreased opiate medications. Tylenol as needed for comfort. (3) Diabetes Qualifiers: Diabetes mellitus type: type 2 Is this a current diagnosis for this admission?: Yes Plan: Hypoglycemia episode this morning; will hold glimepiride while admitted. Holding metformin Accu-Cheks before meals and at bedtime with Humalog for sliding scale coverage. Hypoglycemia protocol in place. Resume home medication regimen on discharge. (4) HTN (hypertension) Is this a current diagnosis for this admission?: Yes Plan: Normotensive at present. Continuing home dose Diovan. Discontinued losartan. Holding hydralazine and furosemide secondary to SOLEDAD. Have started metoprolol. Medications have been reconciled; rx in chart for d/c (5) Lung mass Is this a current diagnosis for this admission?: Yes Plan: Established with Dr. Gutierrez as an outpatient. Plans to travel to [place] to live with children while receiving chemotherapy following discharge. (6) SOLEDAD (acute kidney injury) Is this a current diagnosis for this admission?: Yes Plan: Resolved. Likely prerenal secondary to poor p.o. fluid intake, hypotension, (losartan, m etformin, gabapentin) Encourage p.o. fluids. Holding gabapentin, metformin, hydrochlorothiazide, furosemide, and allopurinol. Have discontinued losartan. Avoid nephrotoxic medications as able. (7) DVT (deep venous thrombosis) Qualifiers: DVT location: lower extremity Affected thrombotic vein of extremity: femoral Chronicity: acute Laterality: right Qualified Code(s): I82.411 - Acute embolism and thrombosis of right femoral vein Is this a current diagnosis for this admission?: Yes Plan: Continue home dose Xarelto. - Plan Summary Summary: Patient is medically stable from hospitalist perspective. Will sign off. Please re-consult if we can be of further assistance. - Time Time Spent with patient: 25-34 minutes Medications reviewed and adjusted accordingly: Yes Anticipated discharge: SNF Within: when bed available
[2019-05-15] MEDS ORDERED: HYDRALAZINE HCL INJ/PF 20 MG/1 ML SDV IV PRN (14:50)
[2019-05-15] MEDS ORDERED: FUROSEMIDE INJ/PF 20 MG/2 ML SDV IV ONE (16:30)
[2019-05-15] MEDS ORDERED: DILTIAZEM HCL INJ 25 MG/5 ML VIAL ONE (16:39)
[2019-05-15] MEDS ORDERED: MIDAZOLAM 2 MG/2 ML INJ ONE (16:41)
--- NOTE | 2019-05-15 16:43 | RADIOLOGY REPORT (SQ) ---
EXAM DESCRIPTION: CHEST SINGLE VIEW COMPLETED DATE/TIME: 05/15/2019 4:33 pm REASON FOR STUDY: SOB COMPARISON: 05/13/2019. EXAM PARAMETERS: NUMBER OF VIEWS: One view. TECHNIQUE: Single frontal radiographic view of the chest acquired. RADIATION DOSE: NA LIMITATIONS: None. FINDINGS: LUNGS AND PLEURA: Worsening aeration in the right lung with increase in the right pleural effusion. MEDIASTINUM AND HILAR STRUCTURES: No masses. Contour normal. HEART AND VASCULAR STRUCTURES: Cardiomegaly. BONES: No acute findings. HARDWARE: None in the chest. OTHER: No other significant finding. IMPRESSION: WORSENING AERATION IN THE RIGHT LUNG. INCREASE IN THE RIGHT PLEURAL EFFUSION. TECHNICAL DOCUMENTATION: JOB ID: [id number] [employer]- All Rights Reserved Reading location - IP/workstation name: [email or web address]
[2019-05-15] MEDS ORDERED: MIDAZOLAM 2 MG/2 ML INJ IV ONE (16:58)
[2019-05-15] MEDS ORDERED: DEXTROSE 5%-WATER 500 ML with AMIODARONE HCL 900 MG IV PRN ×2 (16:59)
[2019-05-15] MEDS ORDERED: DILTIAZEM HCL INJ 25 MG/5 ML VIAL IV ONE (17:00)
[2019-05-15] MEDS ORDERED: PROPOFOL INJ 200 MG/20 ML VIAL IV ONE (17:13)
[2019-05-15 17:19] LABS: ARTERIAL BLOOD BASE EXCESS -7.4 mmol/L; ARTERIAL BLOOD HCO3 19.8 mmol/L (20-24); ARTERIAL BLOOD O2 SATURATION 88.2 % (94-98); ARTERIAL BLOOD PCO2 46.5 mmHg (35-45); ARTERIAL BLOOD PH 7.25 (7.35-7.45); ARTERIAL BLOOD PO2 62.9 mmHg (80-100); ARTERIAL BLOOD TOTAL CO2 21.2 mmol/L (21-25)
[2019-05-15 17:21] LABS: ARTERIAL BLOOD FIO2 100%
[2019-05-15] MEDS ORDERED: ADENOSINE INJ/PF 6 MG/2 ML SDV IV ONE ×3 (17:30)
[2019-05-15] MEDS ORDERED: PROPOFOL 1,000 MG/100 ML INFUS..BTL IV ONE (17:35)
[2019-05-15 17:41] LABS: HEMATOCRIT 33.2 % (36.0-47.0); HEMOGLOBIN 10.7 g/dL (12.0-15.5); MEAN CORPUSCULAR HGB CONC 32.4 g/dL (32.0-36.0); MEAN CORPUSCULAR VOLUME 93 fl (80-97); PLATELET COUNT 118 10^3/uL (150-450); RED BLOOD COUNT 3.58 10^6/uL (3.72-5.28); RED CELL DISTRIBUTION WIDTH 13.8 % (11.5-14.0); WHITE BLOOD COUNT 22.1 10^3/uL (4.0-10.5)
[2019-05-15] MEDS ORDERED: PROPOFOL 1,000 MG/100 ML INFUS..BTL IV PRN (17:47)
[2019-05-15 17:48] LABS: ALBUMIN 3.1 g/dL (3.5-5.0); ALKALINE PHOSPHATASE 207 U/L (38-126); ANION GAP 11 (5-19); ASPARTATE AMINO TRANSFERASE 117 U/L (14-36); BILIRUBIN,DIRECT 0.5 mg/dL (0.0-0.4); BLOOD UREA NITROGEN 25 mg/dL (7-20); CARBON DIOXIDE 19 mmol/L (22-30); CHLORIDE 106 mmol/L (98-107); GLUCOSE 286 mg/dL (75-110); PHOSPHORUS 4.3 mg/dL (2.5-4.5); POTASSIUM 4.8 mmol/L (3.6-5.0); TOTAL PROTEIN 6.3 g/dL (6.3-8.2)
[2019-05-15] MEDS ORDERED: AMIODARONE HCL 150 MG in DEXTROSE 5%-WATER 100 ML IV ONE (18:00)
[2019-05-15] MEDS: DIPHENHYDRAMINE HCL 50 MG/ML VIAL IV ONE ×2 (18:20→18:56)
[2019-05-15] MEDS: FAMOTIDINE INJ/PF 20 MG/2 ML SDV IV ONE ×2 (18:21→18:56)
[2019-05-15] MEDS: METHYLPREDNISOLONE INJ 40 MG/1 ML SDV IV ONE ×2 (18:21→18:57)
--- NOTE | 2019-05-15 19:20 | CRITICAL CARE ADMISSION REPORT ---
HPI Date:: 05/15/19 Reason for ICU Reason:: Acute respiratory failure, tacycardia HPI: Per H&P by Dr. Jacome: LULY LUCERO is a 64 year old female Patient is a 64-year-old female known to me from the outpatient practice. At one point she had been scheduled for a right knee arthroplasty but this was canceled because of some social conflicts. She then presented to the office last week with a diagnosis of her chronic DVT and progressive right knee pain and dysfunction. She underwent an intra-articular injection of Celestone and Marcaine. She now presents to the emergency room with increasing right knee pain and functional disability. She remains afebrile. White count is at 19,000. Course per Althea Taylor [employer]: Underwent aspiration followed by arthroscopic debridement of her right knee. She then developed an acute hematoma without underlying septic component. She has had limited rehabilitation progress with physical therapy due to right knee pain. Today, the hospitalist service was consulted for tachycardia (HR 112-130 present since day of admission), low-grade temperature (T-max last 48 hours 99.9), dehydration, and lung cancer (established with Dr. Gutierrez). Pt was recovering on the surgical unit with the plan for her to be discharged home and to move to [place], [place] to live with her children while undergoing chemotherapy. Per previous provider notes, transfer of her oncology care to the [facility] area has already be established by Dr. Gutierrez. states that pt became agitated today and he noticed she was having increased difficulty breathing. reports that he noticed hemoptysis with increased respiratory rate and increased coughing. Pt was intubated on the floor and transferred to the ICU - Diagnosis/Plan (1) Acute respiratory failure Is this a current diagnosis for this admission?: Yes (2) SOLEDAD (acute kidney injury) Is this a current diagnosis for this admission?: Yes (5) DVT of proximal leg (deep vein thrombosis) Qualifiers: Chronicity: acute Laterality: right Qualified Code(s): I82.4Y1 - Acute embolism and thrombosis of unspecified deep veins of right proximal lower extremity (6) Diabetes Qualifiers: Diabetes mellitus type: type 2 Is this a current diagnosis for this admission?: Yes (7) Lung mass Is this a current diagnosis for this admission?: Yes (8) Morbid obesity Is this a current diagnosis for this admission?: Yes (9) Pneumonia Is this a current diagnosis for this admission?: Yes Past Medical History Past Medical History: As per HPI Cardiac Medical History: Reports: DVT, Hypertension EENT Medical History: Reports: Other - Right lower extremity deep venous thrombosis Endocrine Medical History: Reports: Diabetes Mellitus Type 2, Obesity Renal/ Medical History: Reports: None Malignancy Medical History: Reports: Lung Cancer GI Medical History: Reports: None Musculoskeltal Medical History: Reports: Arthritis Psychiatric Medical History: Denies: Depression Hematology: Reports: Other - Right lower extremity deep venous thrombosis Past Surgical History Past Surgical History: Reports: Cholecystectomy, Hysterectomy, Orthopedic Surgery - Right knee arthroscopic Social/Family History - Social History Lives with: Family Smoking Status: Former Smoker Frequency of Alcohol Use: None Hx Recreational Drug Use: No Drugs: None Hx Prescription Drug Abuse: No - Medication/Allergies Home Medications: Celecoxib [Celebrex 200 mg Capsule] 200 mg PO Q12 05/08/19 Furosemide [Lasix 40 mg Tablet] 40 mg PO DAILY 05/08/19 Gabapentin [Neurontin] 600 mg PO Q8 05/08/19 Glimepiride [Amaryl 4 mg Tablet] 4 mg PO BID 05/08/19 Linaclotide [Linzess 145 Mcg Capsule] 145 mcg PO DAILY 05/08/19 Metformin HCl [Metformin HCl ER] 1,000 mg PO BIDBS 05/08/19 Oxycodone HCl [Oxy-Ir 5 mg Tablet] 10 mg PO Q8HP PRN 05/08/19 Oxycodone HCl/Acetaminophen [Oxycodone-Acetaminophen 10-325] 1 tab PO Q8HP PRN 05/08/19 Ranitidine HCl [Zantac] 150 mg PO BID 05/08/19 Rivaroxaban [Xarelto] 20 mg PO BID 05/08/19 Valsartan/Hydrochlorothiazide [Valsartan-Hctz 160-12.5 mg Tab] 1 tab PO DAILY 05/08/19 Acetaminophen [Tylenol 325 mg Tablet] 650 mg PO Q6HP PRN tablet 05/15/19 Metoprolol Tartrate [Lopressor 25 mg Tablet] 25 mg PO Q12 #60 tablet 05/15/19 Polyethylene Glycol 3350 [Miralax Powder 17 gm/Packet] 17 gm PO DAILY powd.pack 05/15/19 Allergies/Adverse Reactions: iodine Allergy (Verified 03/25/19 15:37) Review of Systems ROS unobtainable: Due to endotracheal tube Physical Exam Vital Signs: Temp Pulse Resp BP Pulse Ox 98.2 F 144 H 20 169/69 H 92 05/15/19 11:16 05/15/19 15:00 05/15/19 15:00 05/15/19 11:16 05/15/19 15:00 Pulse Oximeter Nocturnal Start: 05/14/19 13:35 Freq: RTQ4 Status: Complete Protocol: Document 05/15/19 07:26 CMI (Rec: 05/15/19 07:27 CMI [email or web address]) Nocturnal Pulse Oximetry Equipment Usage Equipment Discontinued Continuous SpO2 Machine # 5 Intake & Output 05/14/19 05/15/19 05/16/19 06:59 06:59 06:59 Intake Total 1541 2348 1743 Output Total 200 2800 Balance 1341 -452 1743 Weight 109.1 kg 111.6 kg 107.3 kg Weight/Height Weight 107.3 kg Height 5 ft 10 in General appearance: PRESENT: mild distress, morbidly obese Head exam: PRESENT: atraumatic, normocephalic Eye exam: PRESENT: conjunctiva pink, PERRLA Ear exam: PRESENT: normal external ear exam Mouth exam: PRESENT: dry mucosa Neck exam: PRESENT: other - trachea midline, no overt JVD Respiratory exam: PRESENT: decreased breath sounds - worse on the right side to RML, rhonchi, tachypnea Cardiovascular exam: PRESENT: +S1, +S2, tachycardia. ABSENT: gallop, rubs, systolic murmur Pulses: PRESENT: normal radial pulses, normal dorsalis pedis pul GI/Abdominal exam: PRESENT: normal bowel sounds, soft, other - healed surgical scar on abdomen. ABSENT: distended, mass, tenderness Extremities exam: PRESENT: +1 edema Neurological exam: PRESENT: other - chemically sedated Skin exam: PRESENT: dry, normal color, warm. ABSENT: rash Tubes/Lines: PRESENT: Endotracheal Tube, Nasogastic Tube Laboratory/Radiographs Laboratory Results: 05/15/19 17:15 05/15/19 17:15 05/15/19 05/15/19 05/15/19 05:24 17:04 17:15 WBC 22.1 H RBC 3.58 L Hgb 10.7 L Hct 33.2 L MCV 93 MCH 30.0 MCHC 32.4 RDW 13.8 Plt Count 118 L Carbonic Acid 1.40 H HCO3/H2CO3 Ratio 14:1 ABG pH 7.25 L ABG pCO2 46.5 H ABG pO2 62.9 L ABG HCO3 19.8 L ABG O2 Saturation 88.2 L ABG Base Excess -7.4 FiO2 100% Sodium 137.0 Potassium 4.1 Chloride 107 Carbon Dioxide 25 Anion Gap 5 BUN 29 H D Creatinine 0.74 Est GFR ( Amer) > 60 Glucose 73 L Calcium 10.7 H Phosphorus Magnesium Total Bilirubin AST Alkaline Phosphatase Total Protein Albumin 05/15/19 17:15 WBC RBC Hgb Hct MCV MCH MCHC RDW Plt Count Carbonic Acid HCO3/H2CO3 Ratio ABG pH ABG pCO2 ABG pO2 ABG HCO3 ABG O2 Saturation ABG Base Excess FiO2 Sodium 135.7 L Potassium 4.8 Chloride 106 Carbon Dioxide 19 L Anion Gap 11 BUN 25 H Creatinine 0.83 Est GFR ( Amer) > 60 Glucose 286 H Calcium 11.0 H Phosphorus 4.3 Magnesium 1.6 Total Bilirubin 1.0 AST 117 H Alkaline Phosphatase 207 H Total Protein 6.3 Albumin 3.1 L 05/08/19 05/15/19 12:26 17:15 Creatine Kinase 70 NT-Pro-B Natriuret Pep 594 H Impressions: Chest X-Ray 05/15/19 00:00 IMPRESSION: WORSENING AERATION IN THE RIGHT LUNG. INCREASE IN THE RIGHT PLEURAL EFFUSION. Critical Time Critical Time (minutes): 60 - not including procedures -: The care of a critically ill patient is dynamic. This note represents a static moment in the admission process. orders and treatments may be given simulataneously and urgentl, and time is not sales training representative of the treatment pr ocess. This patient requires Critical Care secondary to life threating organ or limb dysfunction. Without the need for Critical Care services, the patient is at risk for increasid mortality and morbidity.
[2019-05-15 19:37] LABS: INTERNATIONAL RATION (INR) 2.59; PROTHROMBIN TIME 28.3 SEC (11.4-15.4)
[2019-05-15 19:38] LABS: PARTIAL THROMBOPLASTIN TIME 36.3 SEC (23.5-35.8)
--- NOTE | 2019-05-15 19:51 | RADIOLOGY REPORT (SQ) ---
"EXAM DESCRIPTION: CT CHEST WITH COMPLETED DATE/TIME: 05/15/2019 7:29 pm REASON FOR STUDY: Intubated, R effusion vs tumor COMPARISON: Chest x-ray 05/15/2019. CT 03/25/2019. TECHNIQUE: CT scan of the chest performed using helical scanning technique with dynamic intravenous contrast injection. Images reviewed with lung, soft tissue and bone windows. Reconstructed coronal and sagittal MPR and MIP images reviewed. All images stored on PACS. All CT scanners at this facility use dose modulation, iterative reconstruction, and/or weight based d osing when appropriate to reduce radiation dose to as low as reasonably achievable (ALARA). [facility]: Dose Right [facility]: CareDose [facility]: Dose Right [facility]: Teradose 4D [facility]: QED | [employer] CONTRAST TYPE AND DOSE: contrast/concentration: Isovue 300.00 mg/ml; Total Contrast Delivered: 78.0 ml; Total Saline Delivered: 55.0 ml RENAL FUNCTION: BUN 25 creatinine 0.83 RADIATION DOSE: CT Rad equipment meets quality standard of care and radiation dose reduction techniq ues were employed. CTDIvol: 20.6 mGy. DLP: 804 mGy-cm. . LIMITATIONS: None. FINDINGS: LUNGS AND PLEURA: Significant right pleural effusion with right lower lobe consolidation. There are few air bronchograms in the right base. HILAR AND MEDIASTINAL STRUCTURES: No identified masses or abnormal nodes. HEART AND VASCULAR STRUCTURES: No aneurysm or dissection. There is a minimal pericardial effusion. HARDWARE: Endotracheal tube. NG tube. UPPER ABDOMEN: No significant findings. Limited exam. THYROID AND OTHER SOFT TISSUES: The thyroid gland appears to be enlarged. BONES: No significant finding. OTHER: No other significant finding. IMPRESSION: Significant right pleural effusion with right lower lobe consolidation. Atelectasis amadou skylar pneumonia. Thyroid gland appears to be enlarged. TECHNICAL DOCUMENTATION: JOB ID: [id number] Quality ID # [id number]: Final reports with documentation of one or more dose reduction techniques (e.g., Au tomated exposure control, adjustment of the mA and/or kV according to patient size, use of iterative reconstruction technique) 2010 [employer]- All Rights Reserved Reading location - IP/workstation name: [email or web address]"
[2019-05-15] MEDS: PROPOFOL 1,000 MG/100 ML INFUS..BTL IV PRN ×2 (20:00→23:22)
[2019-05-15 20:25] LABS: ARTERIAL BLOOD BASE EXCESS -8.3 mmol/L; ARTERIAL BLOOD FIO2 60%; ARTERIAL BLOOD H2CO3 0.94 mmol/L (1.05-1.35); ARTERIAL BLOOD HCO3 16.5 mmol/L (20-24); ARTERIAL BLOOD O2 SATURATION 98.8 % (94-98); ARTERIAL BLOOD PCO2 31.2 mmHg (35-45); ARTERIAL BLOOD PH 7.34 (7.35-7.45); ARTERIAL BLOOD PO2 145.9 mmHg (80-100); ARTERIAL BLOOD TOTAL CO2 17.4 mmol/L (21-25)
--- NOTE | 2019-05-15 20:42 | RADIOLOGY REPORT (SQ) ---
EXAM DESCRIPTION: XR CHEST 1 VIEW COMPLETED DATE/TME: 05/15/2019 00:00 CLINICAL HISTORY: 64 years, Female, post intubation COMPARISON: None. EXAM DESCRIPTION: CLINICAL HISTORY: post intubation COMPARISON: 05/15/2019 at 1632 hours FINDINGS: Two frontal views of the chest submitted. ET tube tip is within one vertebral level above the rita. Habitus and technique limit detail significantly. The heart is enlarged. There is pulmonary edema. Moderate to large right pleural effusion is present with atelectasis and consolidation at the right lung. There is partial absence of the posterior lateral right third rib. Metastasis or bone destruction due to other etiologies are possible. Clinical correlation will be helpful. There is medial left lung subsegmental atelectasis. NG tube tip extends below the lower edge of the radiograph and is poorly seen but extends at least to the gastric lumen. No other definite acute abnormality. IMPRESSION: Cardiomegaly, pulmonary edema, right lung consolidation, large right pleural effusion, partial absence of the right posterolateral third rib. Very limited detail.
[2019-05-15] MEDS: LEVALBUTEROL HCL NEB 1.25 MG/3 ML AMPUL NEB SCH (21:33)
[2019-05-15] MEDS: FENTANYL CITRATE INJ/PF 100 MCG/2 ML AMPUL IV PRN (21:38)
[2019-05-15] MEDS: METOPROLOL TARTRATE 25 MG TABLET PO SCH (21:39)
[2019-05-15] MEDS ORDERED: METOPROLOL TARTRATE 25 MG TABLET PO SCH (22:00)
--- NOTE | 2019-05-15 22:42 | XCELERA REPORT ---
[address] [address] Transthoracic Echocardiogram Report Name: VLADIMIR LUCERO Age: 64 yrs Gender: Female : 1955 Patient Status: Inpatient Patient Location: ICU^610^A Study Date: 05/15/2019 08:17 PM Height: 70 in Weight: 236 lb BSA: 2.2 m2 Procedure: A two-dimensional transthoracic echocardiogram with color flow and Doppler was performed. Study Quality: Technically suboptimal. The study was technically difficult with many images being suboptimal in quality. Reason For Study: Globular heart, JVD,,ASSESS CARDIOMYOPAYHY History: Globular heart, JVD,,ASSESS CARDIOMYOPAYHY. Ordering Physician: NELSON HUANG Performed By: Maggy Barnes Interpretation Summary The left ventricle is mildly to moderately dilated. LV EF is 30% to 35% Left ventricular systolic function is moderate to severely reduced. Doppler measurements suggest impaired left ventricular relaxation, which is associated with grade I/IV or mild diastolic dysfunction There is moderate to severe global hypokinesis of the left ventricle. There is no thrombus. Cannot assess ASD,VSD,or PFO. The right ventricle is normal in size and function. The right atrium is normal. The left atrial size is normal. There is no evidence of mitral valve prolapse. There is no mitral valve stenosis. There is no vegetation seen on the mitral valve. There is a trace amount of mitral regurgitation There is no aortic valvular vegetation. There is no aortic valve stenosis There is aortic sclerosis without aortic stenosis. There is no LVOT obstruction. There is a mild amount of aortic regurgitation There is no tricuspid stenosis. There is a trace to mild amount of tricuspid regurgitation There is atleast mild pulmonary hypertension.RVSP is at least 44 mm of HG with a RA mean of atleast 20. There is no pulmonic valvular stenosis. There is a trace amount of pulmonic regurgitation The aortic root is normal size. The inferior vena cava appeared dilated and did not change with respiration (RAP > 20 mmHg) There is no pericardial effusion. MMode/2D Measurements & Calculations RVDd: 2.6 cm LVIDd: 4.8 cm FS: 15.9 % Ao root diam: 2.7 cm IVSd: 1.2 cm LVIDs: 4.0 cm EDV(Teich): 107.1 ml Ao root area: 5.8 cm2 LVPWd: 1.2 cm ESV(Teich): 71.1 ml LA dimension: 2.9 cm EF(Teich): 33.5 % Doppler Measurements & Calculations MV E max santos: MV P1/2t max santos: Ao V2 max: AI max santos: 62.7 cm/sec 71.2 cm/sec 142.5 cm/sec 307.7 cm/sec MV A max santos: MV P1/2t: 44.5 msec Ao max PG: AI max P.3 mmHg 115.5 cm/sec MVA(P1/2t): 4.9 cm2 8.1 mmHg AI dec slope: MV E/A: 0.54 MV dec slope: 201.2 cm/sec2 AI P1/2t: 447.9 msec 469.4 cm/sec2 MV dec time: 0.15 sec LV V1 max PG: PA V2 max: TR max santos: AV P1/2t-pr_phl: 3.0 mmHg 79.5 cm/sec 243.4 cm/sec 479.1 msec LV V1 max: PA max P.5 mmHg TR max P.9 cm/sec 23.7 mmHg MV P1/2t-pr_phl: 44.5 msec Left Ventricle The left ventricle is mildly to moderately dilated. There is mild concentric left ventricular hypertrophy. LV EF is 30% to 35%. Left ventricular systolic function is moderate to severely reduced. Doppler measurements suggest impaired left ventricular relaxation, which is associated with grade I/IV or mild diastolic dysfunction. There is moderate to severe global hypokinesis of the left ventricle. There is no thrombus. Cannot assess ASD,VSD,or PFO. Right Ventricle The right ventricle is normal in size and function. Atria The right atrium is normal. The left atrial size is normal. Mitral Valve There is no evidence of mitral valve prolapse. There is no vegetation seen on the mitral valve. There is no mitral valve stenosis. There is a trace amount of mitral regurgitation. Aortic Valve There is no aortic valvular vegetation. There is no aortic valve stenosis. There is aortic sclerosis without aortic stenosis. There is no LVOT obstruction. There is a mild amount of aortic regurgitation. Tricuspid Valve There is no tricuspid stenosis. There is a trace to mild amount of tricuspid regurgitation. There is atleast mild pulmonary hypertension.RVSP is at least 44 mm of HG with a RA mean of atleast 20. Pulmonic Valve There is no pulmonic valvular stenosis. There is a trace amount of pulmonic regurgitation. Great Vessels The aortic root is normal size. The inferior vena cava appeared dilated and did not change with respiration (RAP > 20 mmHg). Effusions There is no pericardial effusion. : NELSON HUANG Lakshmi
--- NOTE | 2019-05-15 23:46 | EKG REPORT ---
SEVERITY:- ABNORMAL ECG - SUPRAVENTRICULAR TACHYCARDIA : Confirmed by: Lillie Stover 15-May-2019 23:45:34
[2019-05-16] MEDS ORDERED: VANCOMYCIN HCL 0 MG in DEXTROSE 5%-WATER 250 ML IV NR (00:30)
[2019-05-16] MEDS ORDERED: VANCOMYCIN HCL INJ 1000 MG VIAL IV PRN (00:43)
[2019-05-16] MEDS ORDERED: CEFEPIME 2 GM/D5W RTU 2 GM/50 ML RTUPB IV ONE ×2 (00:45→00:54)
[2019-05-16] MEDS ORDERED: VANCOMYCIN HCL 2,000 MG in DEXTROSE 5%-WATER 500 ML IV ONE (00:45)
[2019-05-16] MEDS: LEVALBUTEROL HCL NEB 1.25 MG/3 ML AMPUL NEB SCH ×6 (00:47→20:57)
[2019-05-16] MEDS: INSULIN LISPRO 100 UNIT/ML 3 ML VIAL SUBCUT SCH ×5 (00:56→23:15)
[2019-05-16] MEDS: FENTANYL CITRATE INJ/PF 100 MCG/2 ML AMPUL IV PRN ×2 (01:34→17:05)
[2019-05-16] MEDS: PROPOFOL 1,000 MG/100 ML INFUS..BTL IV PRN ×9 (02:12→23:52)
[2019-05-16] MEDS: METRONIDAZOLE 500 MG/NS RTU 500 MG/100 ML RTUPB IV SCH ×2 (04:15→11:00)
[2019-05-16] MEDS: (PENDING PHARMACY ID) (Linaclotide 145 MCG) PO SCH ×2 (05:36→06:21)
[2019-05-16 06:40] LABS: ABSOLUTE MONOCYTES (AUTO) 0.2 10^3/uL (0.1-1.4); ABSOLUTE NEUT (AUTO) 12.5 10^3/uL (1.7-8.2); BASOPHILS % (AUTO) 0.2 % (0-2); HEMATOCRIT 30.4 % (36.0-47.0); LYMPHOCYTES % (AUTO) 7.1 % (13-45); MEAN CORPUSCULAR HEMOGLOBIN 30.4 pg (27.0-33.4); MEAN CORPUSCULAR HGB CONC 32.9 g/dL (32.0-36.0); MEAN CORPUSCULAR VOLUME 93 fl (80-97); MONOCYTES % (AUTO) 1.8 % (3-13); PLATELET COUNT 103 10^3/uL (150-450); RED BLOOD COUNT 3.28 10^6/uL (3.72-5.28); RED CELL DISTRIBUTION WIDTH 13.9 % (11.5-14.0); SEGMENTED NEUTROPHILS % (AUTO) 90.9 % (42-78); TOTAL CELLS COUNTED % (AUTO) 100 %; VENOUS BLOOD BASE EXCESS -5.8 mmol/L; VENOUS BLOOD HCO3 18.7 mmol/L (20-32); VENOUS BLOOD PCO2 33.1 mmHg (35-63); VENOUS BLOOD PH 7.37 (7.30-7.42); WHITE BLOOD COUNT 13.7 10^3/uL (4.0-10.5)
[2019-05-16 07:00] LABS: ALBUMIN 2.9 g/dL (3.5-5.0); ALKALINE PHOSPHATASE 184 U/L (38-126); ANION GAP 10 (5-19); ASPARTATE AMINO TRANSFERASE 66 U/L (14-36); BILIRUBIN,DIRECT 0.4 mg/dL (0.0-0.4); BILIRUBIN,TOTAL 0.7 mg/dL (0.2-1.3); BLOOD UREA NITROGEN 28 mg/dL (7-20); CALCIUM 10.9 mg/dL (8.4-10.2); CARBON DIOXIDE 19 mmol/L (22-30); CHLORIDE 104 mmol/L (98-107); GLUCOSE 344 mg/dL (75-110); PHOSPHORUS 3.4 mg/dL (2.5-4.5); POTASSIUM 4.4 mmol/L (3.6-5.0); TOTAL PROTEIN 5.8 g/dL (6.3-8.2)
--- NOTE | 2019-05-16 08:02 | PDOC CONSULTATION ---
Consultation Consult Date: 05/16/19 Provider Consulted: ROSALIE QUEVEDO Consult reason:: Hematology/Oncology consultation was requested for patient with known lung cancer. History of Present Illness Admission Date/PCP: 05/12/19 14:45 МАРИНА SPANGLER MD History of Present Illness: VLADIMIR LUCERO is a 64 year old female who was recently found to have adenocarcinoma of the lung. Records are still becoming available but she underwent biopsy at an outside location which reportedly showed adenocarcinoma. PET scan on 04/23/2019 at this institution showed stage IV disease with bone mets. MRI brain showed no abnormalities. Patient has not yest started any treatment and was awaiting trip to [place] to [facility] prior to starting treatment. However, patient presented with acute right knee pain, chronic DVT and was treated by Dr. Jacome. She suddenly became hypoxic in respiratory distress, intubated, and transferred to ICU. This morning, she is intubated and sedated. She appears comfortable. Thoracentesis is scheduled for later today, so her Xarelto has been placed on hold. Nurses are suctioning bloody sputum from ET tube, but no other concerns voiced today. Family is not at bedside, but have been very close by and involved in her care. Remainder of history is per medical records. Past Medical History Cardiac Medical History: Reports: DVT, Hypertension EENT Medical History: Reports: Other - Right lower extremity deep venous thrombosis Endocrine Medical History: Reports: Diabetes Mellitus Type 2, Obesity Renal/ Medical History: Reports: None Malignancy Medical History: Reports: Lung Cancer GI Medical History: Reports: None Musculoskeltal Medical History: Reports: Arthritis Psychiatric Medical History: Denies: Depression Hematology: Reports: Other - Right lower extremity deep venous thrombosis Past Surgical History Past Surgical History: Reports: Cholecystectomy, Hysterectomy, Orthopedic Surgery - Right knee arthroscopic Social History Lives with: Family Smoking Status: Former Smoker Electronic Cigarette use?: No Frequency of Alcohol Use: None Hx Recreational Drug Use: No Drugs: None Hx Prescription Drug Abuse: No - Advance Directive Resuscitation Status: Full Code Family History Family History: Reviewed & Not Pertinent, Arthritis, DM, Hypertension, Malignancy Parental Family History Reviewed: No - Not possible due to ET tube. Children Family History Reviewed: No Sibling(s) Family History Reviewed.: No Medication/Allergy Home Medications: Celecoxib [Celebrex 200 mg Capsule] 200 mg PO Q12 05/08/19 Furosemide [Lasix 40 mg Tablet] 40 mg PO DAILY 05/08/19 Gabapentin [Neurontin] 600 mg PO Q8 05/08/19 Glimepiride [Amaryl 4 mg Tablet] 4 mg PO BID 05/08/19 Linaclotide [Linzess 145 Mcg Capsule] 145 mcg PO DAILY 05/08/19 Metformin HCl [Metformin HCl ER] 1,000 mg PO BIDBS 05/08/19 Oxycodone HCl [Oxy-Ir 5 mg Tablet] 10 mg PO Q8HP PRN 05/08/19 Oxycodone HCl/Acetaminophen [Oxycodone-Acetaminophen 10-325] 1 tab PO Q8HP PRN 05/08/19 Ranitidine HCl [Zantac] 150 mg PO BID 05/08/19 Rivaroxaban [Xarelto] 20 mg PO BID 05/08/19 Valsartan/Hydrochlorothiazide [Valsartan-Hctz 160-12.5 mg Tab] 1 tab PO DAILY 05/08/19 Acetaminophen [Tylenol 325 mg Tablet] 650 mg PO Q6HP PRN tablet 05/15/19 Metoprolol Tartrate [Lopressor 25 mg Tablet] 25 mg PO Q12 #60 tablet 05/15/19 Polyethylene Glycol 3350 [Miralax Powder 17 gm/Packet] 17 gm PO DAILY powd.pack 05/15/19 Allergies/Adverse Reactions: iodine Allergy (Verified 03/25/19 15:37) Review of Systems ROS unobtainable: Due to endotracheal tube Physical Exam Vital Signs: Temp Pulse Resp BP Pulse Ox 99.1 F 92 24 H 140/128 H 98 05/16/19 06:00 05/16/19 04:21 05/16/19 04:21 05/15/19 18:16 05/16/19 04:21 Pulse Oximeter Nocturnal Start: 05/14/19 13:35 Freq: RTQ4 Status: Complete Protocol: Document 05/15/19 07:26 CMI (Rec: 05/15/19 07:27 CMI [email or web address]) Nocturnal Pulse Oximetry Equipment Usage Equipment Discontinued Continuous SpO2 Machine # 5 Intake & Output 05/15/19 05/16/19 05/17/19 06:59 06:59 06:59 Intake Total 2348 2988 100 Output Total 2800 800 Balance -452 2188 100 Weight 111.6 kg 105.8 kg General appearance: PRESENT: no acute distress, obese Head exam: PRESENT: normocephalic Mouth exam: PRESENT: moist, other - ET tube in place. Neck exam: ABSENT: lymphadenopathy, tracheostomy Respiratory exam: PRESENT: clear to auscultation shivam Cardiovascular exam: PRESENT: RRR, tachycardia Pulses: PRESENT: normal dorsalis pedis pul, other - Left foot cold to touch compared to right foot. GI/Abdominal exam: PRESENT: soft. ABSENT: tenderness Musculoskeletal exam: ABSENT: ambulatory Neurological exam: ABSENT: alert, awake Skin exam: PRESENT: normal color Results Laboratory Results: 05/16/19 06:24 05/16/19 06:24 05/15/19 05/15/19 05/15/19 17:04 17:15 17:15 WBC 22.1 H RBC 3.58 L Hgb 10.7 L Hct 33.2 L MCV 93 MCH 30.0 MCHC 32.4 RDW 13.8 Plt Count 118 L Seg Neutrophils % Carbonic Acid 1.40 H HCO3/H2CO3 Ratio 14:1 ABG pH 7.25 L ABG pCO2 46.5 H ABG pO2 62.9 L ABG HCO3 19.8 L ABG O2 Saturation 88.2 L ABG Base Excess -7.4 VBG pH VBG pCO2 VBG HCO3 VBG Base Excess FiO2 100% Sodium 135.7 L Potassium 4.8 Chloride 106 Carbon Dioxide 19 L Anion Gap 11 BUN 25 H Creatinine 0.83 Est GFR ( Amer) > 60 Glucose 286 H Lactic Acid Calcium 11.0 H Phosphorus 4.3 Magnesium 1.6 Total Bilirubin 1.0 AST 117 H Alkaline Phosphatase 207 H Total Protein 6.3 Albumin 3.1 L TSH 05/15/19 05/15/19 05/15/19 17:15 18:57 20:08 WBC RBC Hgb Hct MCV MCH MCHC RDW Plt Count Seg Neutrophils % Carbonic Acid 0.94 L HCO3/H2CO3 Ratio 17:1 ABG pH 7.34 L ABG pCO2 31.2 L ABG pO2 145.9 H ABG HCO3 16.5 L ABG O2 Saturation 98.8 H ABG Base Excess -8.3 VBG pH VBG pCO2 VBG HCO3 VBG Base Excess FiO2 60% Sodium Potassium Chloride Carbon Dioxide Anion Gap BUN Creatinine Est GFR ( Amer) Glucose Lactic Acid 2.0 Calcium Phosphorus Magnesium Total Bilirubin AST Alkaline Phosphatase Total Protein Albumin TSH 0.05 L 05/16/19 05/16/19 05/16/19 06:24 06:24 06:24 WBC 13.7 H RBC 3.28 L Hgb 10.0 L Hct 30.4 L MCV 93 MCH 30.4 MCHC 32.9 RDW 13.9 Plt Count 103 L Seg Neutrophils % 90.9 H Carbonic Acid HCO3/H2CO3 Ratio ABG pH ABG pCO2 ABG pO2 ABG HCO3 ABG O2 Saturation ABG Base Excess VBG pH 7.37 VBG pCO2 33.1 L VBG HCO3 18.7 L VBG Base Excess -5.8 FiO2 Sodium 133.3 L Potassium 4.4 Chloride 104 Carbon Dioxide 19 L Anion Gap 10 BUN 28 H Creatinine 0.85 Est GFR ( Amer) > 60 Glucose 344 H Lactic Acid Calcium 10.9 H Phosphorus 3.4 Magnesium 1.6 Total Bilirubin 0.7 AST 66 H Alkaline Phosphatase 184 H Total Protein 5.8 L Albumin 2.9 L TSH 05/08/19 05/15/19 12:26 17:15 Creatine Kinase 70 NT-Pro-B Natriuret Pep 594 H Impressions: Chest X-Ray 05/15/19 00:00 IMPRESSION: Cardiomegaly, pulmonary edema, right lung consolidation, large right pleural effusion, partial absence of the right posterolateral third rib. Very limited detail. Chest CT 05/15/19 18:00 IMPRESSION: Significant right pleural effusion with right lower lobe consolidation. Atelectasis versus pneumonia. Thyroid gland appears to be enlarged. Status: Image reviewed by me Assessment & Plan - Diagnosis (1) Lung cancer Is this a current diagnosis for this admission?: Yes Plan: Newly diagnosed, appears to be stage IV with bone mets. No treatment as of yet. Awaiting travel to [facility] ([place]) prior to starting treatment. (2) Acute respiratory failure Is this a current diagnosis for this admission?: Yes Plan: Currently intubated. Agree with plans for thoracentesis today. Consider evaluation for PE as well. If this has occurred while on Xarelto, then may need to change to Lovenox/heparin instead. (3) DVT (deep venous thrombosis) Qualifiers: DVT location: lower extremity Affected thrombotic vein of extremity: femoral Chronicity: acute Laterality: right Qualified Code(s): I82.411 - Acute embolism and thrombosis of right femoral vein Is this a current diagnosis for this admission?: Yes Plan: Was on Xarelto. This should be continued once Thoracentesis has been completed, uinless evidence of progression of blood clots. (4) Morbid obesity Is this a current diagnosis for this admission?: Yes - Time Time Spent: 50 to 70 Minutes
--- NOTE | 2019-05-16 08:38 | PDOC CRITICAL CARE PROG REPORT ---
General Date:: 05/16/19 ICU Day:: 2 Ventilator Day:: 2 Hospital Day:: 8 Events in the past 12 to 24 Hours:: Intbated for acute respiratory decompensation Review of systems relevant to events:: Respiratory, neuro. Reason for ICU Addmission:: Acute respiratory failure, tacycardia - Medications: Medications reviewed and adjusted accordingly: Yes Vasopressors:: None Sedation:: Propofol Physical Exam Vital Signs: Temp Pulse Resp BP Pulse Ox 99.1 F 92 24 H 140/128 H 98 05/16/19 06:00 05/16/19 04:21 05/16/19 04:21 05/15/19 18:16 05/16/19 04:21 Pulse Oximeter Nocturnal Start: 05/14/19 13:35 Freq: RTQ4 Status: Complete Protocol: Document 05/15/19 07:26 CMI (Rec: 05/15/19 07:27 CMI [email or web address]) Nocturnal Pulse Oximetry Equipment Usage Equipment Discontinued Continuous SpO2 Machine # 5 Intake & Output 05/15/19 05/16/19 05/17/19 06:59 06:59 06:59 Intake Total 2348 2988 100 Output Total 2800 800 Balance -452 2188 100 Weight 111.6 kg 105.8 kg Weight/Height Weight 105.8 kg Height 5 ft 10 in General appearance: PRESENT: obese Head exam: PRESENT: atraumatic, normocephalic Eye exam: PRESENT: PERRLA Ear exam: PRESENT: normal external ear exam Mouth exam: PRESENT: moist, tongue midline, other - P Respiratory exam: PRESENT: clear to auscultation shivam, crackles, decreased breath sounds, rales Cardiovascular exam: PRESENT: RRR. ABSENT: diastolic murmur, rubs, systolic murmur Vascular exam: PRESENT: normal capillary refill GI/Abdominal exam: PRESENT: normal bowel sounds, soft. ABSENT: distended, guarding, mass, organolmegaly, rebound, tenderness Rectal exam: PRESENT: deferred Extremities exam: PRESENT: joint swelling, +1 edema, other - R leg has knee slightly swollen. Entire R leg slightly swollen to foot. Neurological exam: PRESENT: other - Sedated Skin exam: PRESENT: dry, intact, warm. ABSENT: cyanosis, rash Tubes/Lines: PRESENT: Endotracheal Tube, Nasogastic Tube Laboratory/Radiographs Laboratory Results: 05/16/19 06:24 11/26/19 06:24 05/15/19 05/15/19 05/15/19 17:04 17:15 17:15 WBC 22.1 H RBC 3.58 L Hgb 10.7 L Hct 33.2 L MCV 93 MCH 30.0 MCHC 32.4 RDW 13.8 Plt Count 118 L Seg Neutrophils % Carbonic Acid 1.40 H HCO3/H2CO3 Ratio 14:1 ABG pH 7.25 L ABG pCO2 46.5 H ABG pO2 62.9 L ABG HCO3 19.8 L ABG O2 Saturation 88.2 L ABG Base Excess -7.4 VBG pH VBG pCO2 VBG HCO3 VBG Base Excess FiO2 100% Sodium 135.7 L Potassium 4.8 Chloride 106 Carbon Dioxide 19 L Anion Gap 11 BUN 25 H Creatinine 0.83 Est GFR ( Amer) > 60 Glucose 286 H Lactic Acid Calcium 11.0 H Phosphorus 4.3 Magnesium 1.6 Total Bilirubin 1.0 AST 117 H Alkaline Phosphatase 207 H Total Protein 6.3 Albumin 3.1 L TSH 05/15/19 05/15/19 05/15/19 17:15 18:57 20:08 WBC RBC Hgb Hct MCV MCH MCHC RDW Plt Count Seg Neutrophils % Carbonic Acid 0.94 L HCO3/H2CO3 Ratio 17:1 ABG pH 7.34 L ABG pCO2 31.2 L ABG pO2 145.9 H ABG HCO3 16.5 L ABG O2 Saturation 98.8 H ABG Base Excess -8.3 VBG pH VBG pCO2 VBG HCO3 VBG Base Excess FiO2 60% Sodium Potassium Chloride Carbon Dioxide Anion Gap BUN Creatinine Est GFR ( Amer) Glucose Lactic Acid 2.0 Calcium Phosphorus Magnesium Total Bilirubin AST Alkaline Phosphatase Total Protein Albumin TSH 0.05 L 05/16/19 05/16/19 05/16/19 06:24 06:24 06:24 WBC 13.7 H RBC 3.28 L Hgb 10.0 L Hct 30.4 L MCV 93 MCH 30.4 MCHC 32.9 RDW 13.9 Plt Count 103 L Seg Neutrophils % 90.9 H Carbonic Acid HCO3/H2CO3 Ratio ABG pH ABG pCO2 ABG pO2 ABG HCO3 ABG O2 Saturation ABG Base Excess VBG pH 7.37 VBG pCO2 33.1 L VBG HCO3 18.7 L VBG Base Excess -5.8 FiO2 Sodium 133.3 L Potassium 4.4 Chloride 104 Carbon Dioxide 19 L Anion Gap 10 BUN 28 H Creatinine 0.85 Est GFR ( Amer) > 60 Glucose 344 H Lactic Acid Calcium 10.9 H Phosphorus 3.4 Magnesium 1.6 Total Bilirubin 0.7 AST 66 H Alkaline Phosphatase 184 H Total Protein 5.8 L Albumin 2.9 L TSH 05/08/19 05/15/19 12:26 17:15 Creatine Kinase 70 NT-Pro-B Natriuret Pep 594 H Impressions: Chest X-Ray 05/15/19 00:00 IMPRESSION: Cardiomegaly, pulmonary edema, right lung consolidation, large right pleural effusion, partial absence of the right posterolateral third rib. Very limited detail. Chest CT 05/15/19 18:00 IMPRESSION: Significant right pleural effusion with right lower lobe consolidation. Atelectasis versus pneumonia. Thyroid gland appears to be enlarged. All labs, radiographs, diagnostic studies and EKGs were personally reviewed: Yes In addition, reports of radiographic and diagnostic studies were read: Yes Assessment and Plan - Diagnosis (1) Acute respiratory failure Qualifiers: Respiratory failure complication: hypoxia and hypercapnia Qualified Code(s): J96.01 - Acute respiratory failure with hypoxia; J96.02 - Acute respiratory failure with hypercapnia Is this a current diagnosis for this admission?: Yes Plan: Her respiratory failure was more hypoxic and WOB. Mental status not good at time of intubation due to distress. No PE by CT. (2) Lung cancer Qualifiers: Laterality: right Lung location: lower lobe of lung Qualified Code(s): C34.31 - Malignant neoplasm of lower lobe, right bronchus or lung Is this a current diagnosis for this admission?: Yes Plan: Said to be adenocarcinoma by previous biopsy. To have thoracentesis when INR < 1.5. Cytology ordered. (3) Tachycardia Is this a current diagnosis for this admission?: Yes Plan: SVT by EKG. Treated with IV amiodarone. Terrence transition to PO amiodarone later today. (4) DVT (deep venous thrombosis) Qualifiers: DVT location: lower extremity Affected thrombotic vein of extremity: femoral Chronicity: acute Laterality: right Qualified Code(s): I82.411 - Acute embolism and thrombosis of right femoral vein Is this a current diagnosis for this admission?: Yes Plan: INR on Xarelto is 2.5. Will need to hold Xarelto to obtain thoracentecis. May need heparin infusion if this takes more than a day. (5) Diabetes Qualifiers: Diabetes mellitus type: type 2 Diabetes mellitus complication status: without complication Is this a current diagnosis for this admission?: Yes Plan: Blood sugars not well controlled. Needs higher dose of insulin. (6) Leukocytosis Qualifiers: Leukocytosis type: unspecified Qualified Code(s): D72.829 - Elevated white blood cell count, unspecified Is this a current diagnosis for this admission?: Yes Plan: Leukocytosis much decreased, probably a stress response. Not active. Plan Summary: Plan for thoracentesis when INR < 1.5. Until then attempt weaning trials. Transition to PO amiodarone. Critical Time Critical Time (minutes): 40 Level of Care: ICU Anticipated discharge: SNF Within: Other - When extubated and stable. -: 1. The care of a critical patient is a dynamic process. This note is a guest experience representative synopsis but static in nature. The timeframe for treatments given in order is not necessary the actual time these treatments may have been done. 2. This patient requires critical care secondary to ongoing requirements for therapy not offered or safe outside the critical care environment. Transfer to a lower level of care with altered life or limb morbidity and mortality. 3. Multidisciplinary rounds completed. 4. ABCDE bundle addressed.
[2019-05-16] MEDS: POLYETHYLENE GLYCOL 3350 POWDER 17 GM/1 PACKET PO SCH (09:30)
[2019-05-16] MEDS: METOPROLOL TARTRATE 25 MG TABLET PO SCH ×2 (09:31→21:05)
[2019-05-16] MEDS: LISINOPRIL 10 MG TABLET PO SCH (09:32)
[2019-05-16] MEDS: CELECOXIB 200 MG CAPSULE PO SCH ×2 (09:57→21:04)
[2019-05-16] MEDS ORDERED: CEFEPIME 2 GM/D5W RTU 2 GM/50 ML RTUPB IV SCH (10:00)
[2019-05-16] MEDS ORDERED: VANCOMYCIN HCL 1,500 MG in DEXTROSE 5%-WATER 250 ML IV SCH (10:00)
[2019-05-16] MEDS: AMIODARONE HCL 200 MG TABLET NG SCH ×2 (12:34→21:04)
[2019-05-16] MEDS ORDERED: MORPHINE SULFATE 10 MG/ML INJ ONE (17:54)
[2019-05-16] MEDS: MORPHINE SULFATE 10 MG/ML INJ IV PRN ×2 (18:02→23:16)
[2019-05-17] MEDS: LEVALBUTEROL HCL NEB 1.25 MG/3 ML AMPUL NEB SCH ×6 (00:31→20:42)
[2019-05-17] MEDS: PROPOFOL 1,000 MG/100 ML INFUS..BTL IV PRN ×2 (02:48→07:48)
[2019-05-17] MEDS ORDERED: ALBUMIN HUMAN 12.5 GM/50 ML RTUINJ IV ONE (02:51)
[2019-05-17 04:40] LABS: HEMATOCRIT 29.5 % (36.0-47.0); HEMOGLOBIN 9.7 g/dL (12.0-15.5); MEAN CORPUSCULAR HGB CONC 32.8 g/dL (32.0-36.0); MEAN CORPUSCULAR VOLUME 92 fl (80-97); PLATELET COUNT 123 10^3/uL (150-450); RED BLOOD COUNT 3.23 10^6/uL (3.72-5.28); WHITE BLOOD COUNT 18.4 10^3/uL (4.0-10.5)
[2019-05-17 05:06] LABS: ABSOLUTE LYMPHOCYTES# (MANUAL) 3.3 10^3/uL (0.5-4.7); ABSOLUTE MONOCYTES # (MANUAL) 1.8 10^3/uL (0.1-1.4); BAND NEUTROPHILS % (MANUAL) 1 % (3-5); BASOPHILS % (MANUAL) 0 % (0-2); EOSINOPHILS % (MANUAL) 0 % (0-6); LYMPHOCYTES % (MANUAL) 18 % (13-45); MONOCYTES % (MANUAL) 10 % (3-13); SEGMENTED NEUTROPHILS % (MAN) 71 % (42-78); TOTAL CELLS COUNTED 100
[2019-05-17 05:07] LABS: PLATELET CLUMPS PRESENT; PLATELET COMMENT DECREASED; RBC MORPHOLOGY COMMENT NORMO-CYTIC/CHROMIC
[2019-05-17 05:10] LABS: ANION GAP 6 (5-19); BLOOD UREA NITROGEN 34 mg/dL (7-20); CALCIUM 11.1 mg/dL (8.4-10.2); CARBON DIOXIDE 24 mmol/L (22-30); CHLORIDE 104 mmol/L (98-107); GLUCOSE 161 mg/dL (75-110); POTASSIUM 4.5 mmol/L (3.6-5.0)
[2019-05-17] MEDS: INSULIN LISPRO 100 UNIT/ML 3 ML VIAL SUBCUT SCH ×3 (05:51→18:43)
[2019-05-17 06:12] LABS: INTERNATIONAL RATION (INR) 1.42; PROTHROMBIN TIME 17.5 SEC (11.4-15.4)
--- NOTE | 2019-05-17 07:10 | PDOC PROGRESS REPORT ---
Subjective Progress Note for:: 05/17/19 Subjective:: Patient remains sedated and intubated. Nurses report no events overnight. Hopefully will start weaning vent today. Tube feeds are well tolerated. Reason For Visit: RIGHT KNEE PAIN Physical Exam Vital Signs: Temp Pulse Resp BP Pulse Ox 99.1 F 102 H 19 111/54 L 100 05/17/19 06:00 05/17/19 04:15 05/17/19 06:00 05/17/19 05:31 05/17/19 06:00 Pulse Oximeter Nocturnal Start: 05/14/19 13:35 Freq: RTQ4 Status: Complete Protocol: Document 05/15/19 07:26 CMI (Rec: 05/15/19 07:27 CMI [email or web address]) Nocturnal Pulse Oximetry Equipment Usage Equipment Discontinued Continuous SpO2 Machine # 5 Intake & Output 05/16/19 05/17/19 05/18/19 06:59 06:59 06:59 Intake Total 2988 1349 Output Total 800 1280 Balance 2188 69 Weight 105.8 kg 106.5 kg General appearance: PRESENT: no acute distress, obese Head exam: PRESENT: normocephalic Respiratory exam: PRESENT: clear to auscultation shivam Cardiovascular exam: PRESENT: RRR, tachycardia GI/Abdominal exam: PRESENT: soft. ABSENT: organolmegaly Neurological exam: PRESENT: other - sedated on vent. Does not respond to my voice or touch. Skin exam: PRESENT: normal color, other - Left foot cooler to touch than right foot. Results Laboratory Results: 05/17/19 04:14 05/17/19 04:14 05/17/19 05/17/19 04:14 04:14 WBC 18.4 H RBC 3.23 L Hgb 9.7 L Hct 29.5 L MCV 92 MCH 30.0 MCHC 32.8 RDW 14.0 Plt Count 123 L Seg Neutrophils % Not Reportable Sodium 133.7 L Potassium 4.5 Chloride 104 Carbon Dioxide 24 Anion Gap 6 BUN 34 H Creatinine 0.89 Est GFR ( Amer) > 60 Glucose 161 H Calcium 11.1 H 05/08/19 05/15/19 12:26 17:15 Creatine Kinase 70 NT-Pro-B Natriuret Pep 594 H Impressions: Chest X-Ray 05/15/19 00:00 IMPRESSION: Cardiomegaly, pulmonary edema, right lung consolidation, large right pleural effusion, partial absence of the right posterolateral third rib. Very limited detail. Chest CT 05/15/19 18:00 IMPRESSION: Significant right pleural effusion with right lower lobe consolidation. Atelectasis versus pneumonia. Thyroid gland appears to be enlarged. Assessment & Plan - Diagnosis (1) Lung cancer Qualifiers: Laterality: right Lung location: lower lobe of lung Qualified Code(s): C34.31 - Malignant neoplasm of lower lobe, right bronchus or lung Is this a current diagnosis for this admission?: Yes Plan: Await PD-L1 and other markers to help decide on treatment. She is planning to travel to [facility] for second opinion. (2) Acute respiratory failure Qualifiers: Respiratory failure complication: hypoxia and hypercapnia Qualified Code(s): J96.01 - Acute respiratory failure with hypoxia; J96.02 - Acute respiratory failure with hypercapnia Is this a current diagnosis for this admission?: Yes Plan: CT-A was negative for PE. Hopefully, vent can be weaned. (3) DVT (deep venous thrombosis) Qualifiers: DVT location: lower extremity Affected thrombotic vein of extremity: femoral Chronicity: acute Laterality: right Qualified Code(s): I82.411 - Acute embolism and thrombosis of right femoral vein Is this a current diagnosis for this admission?: Yes Plan: All anticoagulation is currently on hold. I would restart heparin/lovenox at treatment doses JEAN until she is taking PO again. There is no evidence of bleeding and PLT are >50. It should be safe to resume anticoagulation, unless f urther procedures are planned. (4) Morbid obesity Is this a current diagnosis for this admission?: Yes - Time Time Spent with patient: 15-24 minutes
--- NOTE | 2019-05-17 08:58 | RADIOLOGY REPORT (SQ) ---
EXAM DESCRIPTION: U/S THYROID/SFT TISS HD NECK COMPLETED DATE/TIME: 05/16/2019 11:21 pm REASON FOR STUDY: enlarged gland on CT with abnormal labs COMPARISON: Ultrasound from 05/25/2017. TECHNIQUE: Dynamic and static ibarra-scale images acquired of the thyroid gland. Selected additional c olor/power Doppler images recorded. All images stored to PACS. LIMITATIONS: None. FINDINGS: RIGHT LOBE: The right lobe measures 6.2 x 2 x 2.1 cm in its echotexture is heterogeneous. There are 2 nodules in the right lobe of the thyroid gland: 1. A 1.1 x 0.9 x 0.8 cm heterogeneous nodule with an eccentric echogenic focus that is stable from . 2. A spongiform isoechoic nodule that is wider than tall and has ill-defined margins that contains n o echogenic foci and measures 0.9 x 0.9 x 0.6 cm (TR1). LEFT LOBE: The left lobe of the thyroid gland measures 5.5 by 2.3 x 3.8 cm in its echotexture is hete rogeneous. There are 2 nodules in the left lobe of the thyroid gland: 1. A 1.3 x 1.2 x 0.8 cm heterogeneous nodule with an eccentric echogenic focus that is stable from . 2. There is a solid echogenic nodule in the posterior aspect of the thyroid lobe that has smooth mar gins and contains no echogenic foci ; the nodule measures approximately 1.5 cm in craniocaudal diamet er (TR3). ISTHMUS: The isthmus measures 3.1 mm in AP diameter its echotexture is heterogeneous. OTHER: No other finding. IMPRESSION: Multinodular goiter as detailed above. Within the left lobe of thyroid gland there is a TR 3 nodule that measures approximately 1.5 cm. COMMENT: Based on the ACR TI-RADS guidelines a follow-up US in 12 months is recommended. TECHNICAL DOCUMENTATION: JOB ID: [id number] [employer]- All Rights Reserved Reading location - IP/workstation name: [email or web address]
--- NOTE | 2019-05-17 09:24 | PDOC CRITICAL CARE PROG REPORT ---
General Date:: 05/17/19 ICU Day:: 3 Hospital Day:: 8 Events in the past 12 to 24 Hours:: Weaned to PSV and CPAP. INR corrected Review of systems relevant to events:: Respiratory Reason for ICU Addmission:: Acute respiratory failure, tacycardia - Medications: Medications reviewed and adjusted accordingly: Yes Vasopressors:: None Sedation:: Diprivan Physical Exam Vital Signs: Temp Pulse Resp BP Pulse Ox 99.1 F 100 16 103/53 L 100 05/17/19 07:20 05/17/19 07:20 05/17/19 07:20 05/17/19 07:20 05/17/19 07:20 Pulse Oximeter Nocturnal Start: 05/14/19 13:35 Freq: RTQ4 Status: Complete Protocol: Document 05/15/19 07:26 CMI (Rec: 05/15/19 07:27 CMI [email or web address]) Nocturnal Pulse Oximetry Equipment Usage Equipment Discontinued Continuous SpO2 Machine # 5 Intake & Output 05/16/19 05/17/19 05/18/19 06:59 06:59 06:59 Intake Total 2988 1349 54 Output Total 800 1280 100 Balance 2188 69 -46 Weight 105.8 kg 106.5 kg Weight/Height Weight 106.5 kg Height 5 ft 10 in General appearance: PRESENT: obese Head exam: PRESENT: atraumatic, normocephalic Eye exam: PRESENT: PERRLA Ear exam: PRESENT: normal external ear exam Mouth exam: PRESENT: moist, tongue midline Respiratory exam: PRESENT: decreased breath sounds - On right side, rhonchi, unlabored Cardiovascular exam: PRESENT: tachycardia Vascular exam: PRESENT: normal capillary refill GI/Abdominal exam: PRESENT: normal bowel sounds, soft. ABSENT: distended, guarding, mass, organolmegaly, rebound, tenderness Rectal exam: PRESENT: deferred Gentrourinary exam: PRESENT: indwelling catheter Extremities exam: PRESENT: pedal edema Neurological exam: PRESENT: altered, other - Sedated Skin exam: PRESENT: dry, intact, warm. ABSENT: cyanosis, rash Additional comments: Anasarca. Laboratory/Radiographs Laboratory Results: 05/17/19 04:14 05/17/19 04:14 05/17/19 05/17/19 04:14 04:14 WBC 18.4 H RBC 3.23 L Hgb 9.7 L Hct 29.5 L MCV 92 MCH 30.0 MCHC 32.8 RDW 14.0 Plt Count 123 L Seg Neutrophils % Not Reportable Sodium 133.7 L Potassium 4.5 Chloride 104 Carbon Dioxide 24 Anion Gap 6 BUN 34 H Creatinine 0.89 Est GFR ( Amer) > 60 Glucose 161 H Calcium 11.1 H 05/08/19 05/15/19 12:26 17:15 Creatine Kinase 70 NT-Pro-B Natriuret Pep 594 H Impressions: Chest X-Ray 05/15/19 00:00 IMPRESSION: Cardiomegaly, pulmonary edema, right lung consolidation, large right pleural effusion, partial absence of the right posterolateral third rib. Very limited detail. Chest CT 05/15/19 18:00 IMPRESSION: Significant right pleural effusion with right lower lobe consolidation. Atelectasis versus pneumonia. Thyroid gland appears to be enlarged. Thyroid Ultrasound 05/16/19 08:00 IMPRESSION: Multinodular goiter as detailed above. Within the left lobe of thyroid gland there is a TR 3 nodule that measures approximately 1.5 cm. All labs, radiographs, diagnostic studies and EKGs were personally reviewed: Yes In addition, reports of radiographic and diagnostic studies were read: Yes Assessment and Plan - Diagnosis (1) Acute respiratory failure Qualifiers: Respiratory failure complication: hypoxia and hypercapnia Qualified Code(s): J96.01 - Acute respiratory failure with hypoxia; J96.02 - Acute respiratory failure with hypercapnia Is this a current diagnosis for this admission?: Yes Plan: After thoracentesis hope to extubate. (2) Lung cancer Qualifiers: Laterality: right Lung location: lower lobe of lung Qualified Code(s): C34.31 - Malignant neoplasm of lower lobe, right bronchus or lung Is this a current diagnosis for this admission?: Yes Plan: When stable transfer to [facility] in [place]. (3) Tachycardia Is this a current diagnosis for this admission?: Yes Plan: Still in ST. Mild. No treatment (4) DVT (deep venous thrombosis) Qualifiers: DVT location: lower extremity Affected thrombotic vein of extremity: femoral Chronicity: acute Laterality: right Qualified Code(s): I82.411 - Acute embolism and thrombosis of right femoral vein Is this a current diagnosis for this admission?: Yes (5) Diabetes Qualifiers: Diabetes mellitus type: type 2 Diabetes mellitus complication status: without complication Is this a current diagnosis for this admission?: Yes Plan: Better control (6) Leukocytosis Qualifiers: Leukocytosis type: unspecified Qualified Code(s): D72.829 - Elevated white blood cell count, unspecified Is this a current diagnosis for this admission?: Yes Plan: Back up to 18K. No positive cultures. Continue to observe. Plan Summary: Thoracentesis today then hope to extubate. Critical Time Critical Time (minutes): 35 Level of Care: ICU Anticipated discharge: [facility] Within: Other -: 1. The care of a critical patient is a dynamic process. This note is a sales representative facility services synopsis but static in nature. The timeframe for treatments given in order is not necessary the actual time these treatments may have been done. 2. This patient requires critical care secondary to ongoing requirements for therapy not offered or safe outside the critical care environment. Transfer to a lower level of care with altered life or limb morbidity and mortality. 3. Multidisciplinary rounds completed. 4. ABCDE bundle addressed.
[2019-05-17] MEDS: CELECOXIB 200 MG CAPSULE PO SCH ×2 (10:14→21:23)
[2019-05-17] MEDS: AMIODARONE HCL 200 MG TABLET NG SCH (10:14)
[2019-05-17] MEDS: POLYETHYLENE GLYCOL 3350 POWDER 17 GM/1 PACKET PO SCH (10:14)
[2019-05-17] MEDS: FAMOTIDINE 20 MG TABLET PO SCH ×2 (10:14→21:23)
[2019-05-17] MEDS: LISINOPRIL 10 MG TABLET PO SCH (10:14)
[2019-05-17] MEDS: METOPROLOL TARTRATE 25 MG TABLET PO SCH (10:14)
[2019-05-17 11:25] LABS: VANCOMYCIN,TROUGH 12.5 ug/mL (5.0-20.0)
--- NOTE | 2019-05-17 12:49 | RADIOLOGY REPORT (SQ) ---
EXAM DESCRIPTION: CHEST SINGLE VIEW COMPLETED DATE/TIME: 05/17/2019 12:38 pm REASON FOR STUDY: Chest tube placement COMPARISON: AP view of the chest from 05/15/2019. EXAM PARAMETERS: NUMBER OF VIEWS: One view. TECHNIQUE: Single frontal radiographic view of the chest acquired. RADIATION DOSE: NA LIMITATIONS: None. FINDINGS: LUNGS AND PLEURA: Status post ultrasound-guided placement of a right-sided pleural drainag e catheter; the distal loop of the catheter projects within the right hemithorax. The right pleural effusion has decreased in size and the aeration of the right lower lobe has improved post drainage of the pleural fluid via the catheter. There is no postprocedural pneumothorax. MEDIASTINUM AND HILAR STRUCTURES: Stable mediastinal and hilar contours. HEART AND VASCULAR STRUCTURES: Stable cardiac silhouette. BONES: No acute findings. HARDWARE: The tip of the endotracheal tube projects 3.7 cm above the rita. The tip of the enteric tube projects past the costosternal junction and outside the field of view of the radiograph. OTHER: No other finding. IMPRESSION: Status post ultrasound-guided placement of a right-sided pleural drainage catheter. As stated above, the right pleural effusion has decreased in size and the aeration of the right lower lo be has improved post drainage of the pleural fluid via the catheter. TECHNICAL DOCUMENTATION: JOB ID: [id number] [employer]- All Rights Reserved Reading location - IP/workstation name: [email or web address]
[2019-05-17] MEDS: MORPHINE SULFATE 10 MG/ML INJ IV PRN ×3 (14:27→21:23)
--- NOTE | 2019-05-17 14:54 | RADIOLOGY REPORT (SQ) ---
EXAM DESCRIPTION: U/S THORACENTESIS W/CHEST TUBE COMPLETED DATE/TIME: 05/17/2019 12:52 pm REASON FOR STUDY: Acute resp failure, R effusion from malignancy COMPARISON: None FLUORO TIME: N/A. TECHNIQUE: The procedure, risks, benefits, and alternatives were discussed with the patient's family in the ICU, and all questions were answered. Informed consent was obtained verbally and in writing. The procedure was performed at the bedside in the ICU. The patient was position in the left lateral recumbent position and a time-out was performed prior to the procedure per protocol. At 1st, sonographic images of the posterior right hemithorax were obtained for targeting of the fluid -filled right pleural space. Based on review of the images an appropriate access site was selected on the skin. The area around selected access site was then prepped and draped with 2% chlorhexidine utilizing gwen dard sterile technique. After that, the access site was infiltrated with 1% lidocaine and an incisio n was made perpendicular to the skin surface with a #11 blade. An [employer] Catheter needle was t hen advanced through the skin incision and into the fluid-filled right pleural space. Next the cathet er was exchanged over a 0.038 inch guidewire for a 10 Welsh dilator, which was used to dilate the pe rcutaneous track. The dilator was then removed and a 10 Welsh all-purpose drainage catheter was adva nced over the guidewire into the fluid-filled right pleural space. After that, the guidewire and inne r dilator of the catheter were removed and the catheter was formed within the fluid-filled right pleu ral space. 600 mL of bloody fluid were then aspirated through the catheter and collected for analysis . After that, the catheter was secured in place with a StayFix device and attached to a Pleur-Evac. The patient tolerated the procedure well without immediate complication. The patient is intubated and sedated. At the end of the procedure the patient's condition was unchang ed from the preprocedural baseline. Documentation of [id number] time the proceduralist spent monitoring the patient: 25 minutes. RADIATION DOSE: N/A. LIMITATIONS: None FINDINGS: Integrated into the Technique. IMPRESSION: Successful ultrasound-guided placement of a 10 Welsh all-purpose drainage catheter into the fluid-filled right pleural space. COMMENT: Patient medication list reviewed: Yes- Quality ID# [id number]:Eligible professional attests to do cumenting in the medical record they obtained, updated, or reviewed the patient's current medications . Quality ID 145: Final reports for procedures using fluoroscopy that document radiation exposure felicia saul, or exposure time and number of fluorographic images (if radiation exposure indices are not avail able) TECHNICAL DOCUMENTATION: JOB ID: [id number] [employer]- All Rights Reserved rev-10/06 Reading location - IP/workstation name: [email or web address]
[2019-05-17] MEDS ORDERED: METOPROLOL TARTRATE PF/INJ 5 MG/5 ML SDV IV PRN (15:40)
[2019-05-17] MEDS ORDERED: FUROSEMIDE INJ/PF 20 MG/2 ML SDV IV ONE ×2 (16:15→20:00)
[2019-05-17] MEDS: ACETAMINOPHEN 325 MG TABLET PO PRN (20:24)
[2019-05-18] MEDS: MORPHINE SULFATE 10 MG/ML INJ IV PRN (00:42)
[2019-05-18] MEDS: LEVALBUTEROL HCL NEB 1.25 MG/3 ML AMPUL NEB SCH ×6 (00:47→20:09)
[2019-05-18] MEDS: INSULIN LISPRO 100 UNIT/ML 3 ML VIAL SUBCUT SCH ×4 (00:48→20:06)
[2019-05-18] MEDS: OXYCODONE HCL IR 5 MG TABLET PO PRN ×3 (08:09→19:40)
--- NOTE | 2019-05-18 09:15 | PDOC CRITICAL CARE PROG REPORT ---
General Date:: 05/18/19 ICU Day:: 4 Hospital Day:: 9 Events in the past 12 to 24 Hours:: Extubated and had thoracentesis Review of systems relevant to events:: Respiratory and neuro-both improved Reason for ICU Addmission:: Acute respiratory failure, tacycardia - Medications: Medications reviewed and adjusted accordingly: Yes Vasopressors:: None Sedation:: None Physical Exam Vital Signs: Temp Pulse Resp BP Pulse Ox 98.8 F 113 H 20 140/80 H 99 05/18/19 08:00 05/18/19 08:10 05/18/19 08:10 05/18/19 08:00 05/18/19 08:10 Pulse Oximeter Nocturnal Start: 05/14/19 13:35 Freq: RTQ4 Status: Complete Protocol: Document 05/15/19 07:26 CMI (Rec: 05/15/19 07:27 CMI [id number]) Nocturnal Pulse Oximetry Equipment Usage Equipment Discontinued Continuous SpO2 Machine # 5 Intake & Output 05/17/19 05/18/19 05/19/19 06:59 06:59 06:59 Intake Total 1349 208 Output Total 1280 3025 175 Balance 69 -2817 -175 Weight 106.5 kg 105.4 kg Weight/Height Weight 105.4 kg Height 5 ft 10 in General appearance: PRESENT: no acute distress, obese Head exam: PRESENT: atraumatic, normocephalic Eye exam: PRESENT: conjunctiva pink, EOMI, PERRLA. ABSENT: scleral icterus Ear exam: PRESENT: normal external ear exam Mouth exam: PRESENT: moist, tongue midline Respiratory exam: PRESENT: clear to auscultation shivam, other - Better soundings R side. Still not hearing much in RLL.. ABSENT: rales, rhonchi, wheezes Cardiovascular exam: PRESENT: tachycardia - Mild 100-115 range Vascular exam: PRESENT: normal capillary refill GI/Abdominal exam: PRESENT: normal bowel sounds, soft. ABSENT: distended, guarding, mass, organolmegaly, rebound, tenderness Rectal exam: PRESENT: deferred Extremities exam: PRESENT: full ROM, other - Anasarca less. ABSENT: calf tenderness, clubbing, pedal edema Neurological exam: PRESENT: alert, awake, oriented to person, oriented to place, oriented to time, oriented to situation, CN II-XII grossly intact. ABSENT: motor sensory deficit Skin exam: PRESENT: dry, intact, warm. ABSENT: cyanosis, rash Tubes/Lines: PRESENT: Chest Tube Laboratory/Radiographs Laboratory Results: 05/17/19 04:14 05/17/19 10:14 05/17/19 10:14 Creatinine 0.91 Est GFR ( Amer) > 60 05/08/19 05/15/19 12:26 17:15 Creatine Kinase 70 NT-Pro-B Natriuret Pep 594 H Impressions: Chest CT 05/15/19 18:00 IMPRESSION: Significant right pleural effusion with right lower lobe consolidation. Atelectasis versus pneumonia. Thyroid gland appears to be enlarged. Thyroid Ultrasound 05/16/19 08:00 IMPRESSION: Multinodular goiter as detailed above. Within the left lobe of t hyroid gland there is a TR 3 nodule that measures approximately 1.5 cm. Thoracentesis Ultrasound 05/17/19 08:00 IMPRESSION: Successful ultrasound-guided placement of a 10 Hungarian all-purpose drainage catheter into the fluid-filled right pleural space. Chest X-Ray 05/17/19 11:37 IMPRESSION: Status post ultrasound-guided placement of a right-sided pleural drainage catheter. As stated above, the right pleural effusion has decreased in size and the aeration of the right lower lobe has improved post drainage of the pleural fluid via the catheter. All labs, radiographs, diagnostic studies and EKGs were personally reviewed: Yes In addition, reports of radiographic and diagnostic studies were read: Yes Assessment and Plan - Diagnosis (1) Acute respiratory failure Qualifiers: Respiratory failure complication: hypoxia and hypercapnia Qualified Code(s): J96.01 - Acute respiratory failure with hypoxia; J96.02 - Acute respiratory failure with hypercapnia Is this a current diagnosis for this admission?: Yes Plan: Resolved. Extubated about 24 hours. Pigtail catheter placed after thoracentesis of > 1l bloody effusion. Malignant. RR status more stable. Transfer back to [facility] (2) Lung cancer Qualifiers: Laterality: right Lung location: lower lobe of lung Qualified Code(s): C34.31 - Malignant neoplasm of lower lobe, right bronchus or lung Is this a current diagnosis for this admission?: Yes Plan: Plan for rehab after discharge then to [facility] for lung cancer treatment. (3) Tachycardia Is this a current diagnosis for this admission?: Yes Plan: Still present but at a more stable rate. Transfer to [facility] for possible need for iv rate controlling medication. (4) DVT (deep venous thrombosis) Qualifiers: DVT location: lower extremity Affected thrombotic vein of extremity: femoral Chronicity: acute Laterality: right Qualified Code(s): I82.411 - Acute embolism and thrombosis of right femoral vein Is this a current diagnosis for this admission?: Yes Plan: Restart Xarelto today. (5) Diabetes Qualifiers: Diabetes mellitus type: type 2 Diabetes mellitus complication status: without complication Is this a current diagnosis for this admission?: Yes Plan: Better control. (6) Leukocytosis Qualifiers: Leukocytosis type: unspecified Qualified Code(s): D72.829 - Elevated white blood cell count, unspecified Is this a current diagnosis for this admission?: Yes Plan: No sign of new infection. Check CBC in AM. Plan Summary: Downgrade and transfer today. Mobilize. Critical Time Critical Time (minutes): 30 Level of Care: [facility] Anticipated discharge: SNF Within: Other -: 1. The care of a critical patient is a dynamic process. This note is a junior sales representative synopsis but static in nature. The timeframe for treatments given in order is not necessary the actual time these treatments may have been done. 2. This patient requires critical care secondary to ongoing requirements for therapy not offered or safe outside the critical care environment. Transfer to a lower level of care with altered life or limb morbidity and mortality. 3. Multidisciplinary rounds completed. 4. ABCDE bundle addressed.
[2019-05-18] MEDS: FUROSEMIDE INJ/PF 20 MG/2 ML SDV IV SCH (09:23)
[2019-05-18] MEDS: AMIODARONE HCL 200 MG TABLET PO SCH ×2 (09:24→21:33)
[2019-05-18] MEDS: LISINOPRIL 10 MG TABLET PO SCH (09:24)
[2019-05-18] MEDS: FAMOTIDINE 20 MG TABLET PO SCH ×2 (09:24→21:33)
[2019-05-18] MEDS: METOPROLOL TARTRATE 25 MG TABLET PO SCH ×2 (09:24→21:32)
[2019-05-18] MEDS: POLYETHYLENE GLYCOL 3350 POWDER 17 GM/1 PACKET PO SCH (09:31)
[2019-05-18] MEDS: CELECOXIB 200 MG CAPSULE PO SCH ×2 (10:41→21:32)
[2019-05-18] MEDS: RIVAROXABAN 10 MG TABLET PO SCH (11:19)
[2019-05-19] MEDS: LEVALBUTEROL HCL NEB 1.25 MG/3 ML AMPUL NEB SCH ×6 (00:33→20:31)
[2019-05-19] MEDS: INSULIN LISPRO 100 UNIT/ML 3 ML VIAL SUBCUT SCH ×5 (00:39→22:11)
[2019-05-19] MEDS: OXYCODONE HCL IR 5 MG TABLET PO PRN ×3 (03:19→18:27)
[2019-05-19 05:39] LABS: HEMATOCRIT 28.1 % (36.0-47.0); HEMOGLOBIN 9.2 g/dL (12.0-15.5); MEAN CORPUSCULAR HEMOGLOBIN 30.4 pg (27.0-33.4); MEAN CORPUSCULAR HGB CONC 32.9 g/dL (32.0-36.0); MEAN CORPUSCULAR VOLUME 92 fl (80-97); RED BLOOD COUNT 3.04 10^6/uL (3.72-5.28); RED CELL DISTRIBUTION WIDTH 14.1 % (11.5-14.0); WHITE BLOOD COUNT 13.6 10^3/uL (4.0-10.5)
[2019-05-19 05:54] LABS: ANION GAP 5 (5-19); BLOOD UREA NITROGEN 26 mg/dL (7-20); CALCIUM 10.9 mg/dL (8.4-10.2); CARBON DIOXIDE 27 mmol/L (22-30); CHLORIDE 107 mmol/L (98-107); GLUCOSE 151 mg/dL (75-110); POTASSIUM 4.3 mmol/L (3.6-5.0)
[2019-05-19 06:16] LABS: ABSOLUTE LYMPHOCYTES# (MANUAL) 2.2 10^3/uL (0.5-4.7); ABSOLUTE MONOCYTES # (MANUAL) 0.4 10^3/uL (0.1-1.4); BAND NEUTROPHILS % (MANUAL) 2 % (3-5); BASOPHILS % (MANUAL) 0 % (0-2); EOSINOPHILS % (MANUAL) 1 % (0-6); LYMPHOCYTES % (MANUAL) 16 % (13-45); MONOCYTES % (MANUAL) 3 % (3-13); SEGMENTED NEUTROPHILS % (MAN) 78 % (42-78); TOTAL CELLS COUNTED 100
[2019-05-19 06:26] LABS: ANISOCYTOSIS SLIGHT
[2019-05-19 06:27] LABS: PLATELET COMMENT DECREASED; PLATELET COUNT 99 10^3/uL (150-450)
--- NOTE | 2019-05-19 09:41 | RADIOLOGY REPORT (SQ) ---
EXAM DESCRIPTION: CHEST SINGLE VIEW COMPLETED DATE/TIME: 05/19/2019 9:04 am REASON FOR STUDY: DAILY CHEST XRAY WHILE CHEST TUBES ARE IN. COMPARISON: PET-CT 04/23/2019 CT chest 05/15/2019, 03/25/2019 Chest films 05/15/2019, 05/17/2019 EXAM PARAMETERS: NUMBER OF VIEWS: One view. TECHNIQUE: Single frontal radiographic view of the chest acquired. RADIATION DOSE: NA LIMITATIONS: None. FINDINGS: LUNGS AND PLEURA: A right-sided pleural space pigtail catheter is present. No pneumothora x. There is opacification of the right lower hemithorax from dense consolidation in the right middle and lower lobe, and possible small residual pleural effusion. Left hemithorax unremarkable. No focal infiltrates. No pleural effusion or pneumothorax. MEDIASTINUM AND HILAR STRUCTURES: Right hilum obscured by dense right-sided airspace disease. HEART AND VASCULAR STRUCTURES: Grossly normal BONES: No acute findings. HARDWARE: Right-sided pleural space pigtail catheter unchanged OTHER: No other significant finding. IMPRESSION: Right-sided pleural space pigtail catheter unchanged. No pneumothorax. Persistent dense consolidation throughout the right middle and lower lobe. TECHNICAL DOCUMENTATION: JOB ID: [id number] [employer]- All Rights Reserved Reading location - IP/workstation name: [facility]
[2019-05-19] MEDS: POLYETHYLENE GLYCOL 3350 POWDER 17 GM/1 PACKET PO SCH (10:54)
[2019-05-19] MEDS: LISINOPRIL 10 MG TABLET PO SCH (10:54)
[2019-05-19] MEDS: AMIODARONE HCL 200 MG TABLET PO SCH ×2 (10:56→21:38)
[2019-05-19] MEDS: FAMOTIDINE 20 MG TABLET PO SCH ×2 (10:56→21:37)
[2019-05-19] MEDS: RIVAROXABAN 10 MG TABLET PO SCH (10:56)
[2019-05-19] MEDS: METOPROLOL TARTRATE 25 MG TABLET PO SCH ×2 (10:56→21:38)
[2019-05-19] MEDS: CELECOXIB 200 MG CAPSULE PO SCH ×2 (10:56→21:38)
[2019-05-19] MEDS: FUROSEMIDE INJ/PF 20 MG/2 ML SDV IV SCH (10:56)
--- NOTE | 2019-05-19 14:59 | PDOC PROGRESS REPORT ---
Subjective Progress Note for:: 05/19/19 Subjective:: Brief history of hospital stay Patient is a 64-year-old female with history of recently diagnosed right lung cancer who presented on 05/09/2019 with increased right knee pain and swelling with functional disability. She was admitted onto the orthopedic service and u nderwent right knee lavage/synovectomy/meniscectomy for right knee hemarthrosis. Of note patient had been taking Xarelto 20 mg twice daily. Patient was subsequently been planned for discharge to SNF. On 05/15/2019, patient was noted to be hypoxic with heavy work of breathing. Rapid response was called as patient was in accelerated junctional tachycardia in the 160s. During the FINANCIAL SERVICE REP, patient received 3 doses of adenosine, 3 synchronized cardioversions [100, 150 & 200 J] all without improvement. Patient's tachycardia was finally broken after receiving 150 mg of amiodarone IV. Patient was intubated given heavy work of breathing and sent to the ICU. Chest CT was done. Right thoracentesis was performed yielding 600 cc of bloody effusion. A 10 Lithuanian drainage catheter was placed. Patient was later successfully extubated. She has been stable. She was started on amiodarone pills in the ICU. Transferred to the hospitalist service today after being downgraded to the [facility]. Today, patient states that she feels well. Patient states shortness of breath is improving. Denies any chest pain or palpitations. Patient is worried with the potential of what happened on 05/15/2019 recurrent at some point. Reason For Visit: RIGHT KNEE PAIN Physical Exam Vital Signs: Temp Pulse Resp BP Pulse Ox 98.8 F 103 H 18 134/69 H 97 05/19/19 08:32 05/19/19 12:11 05/19/19 12:11 05/19/19 08:32 05/19/19 12:11 Pulse Oximeter Nocturnal Start: 05/14/19 13 :35 Freq: RTQ4 Status: Complete Protocol: Document 05/15/19 07:26 CMI (Rec: 05/15/19 07:27 CMI [id number]) Nocturnal Pulse Oximetry Equipment Usage Equipment Discontinued Continuous SpO2 Machine # 5 Intake & Output 05/18/19 05/19/19 05/20/19 06:59 06:59 06:59 Intake Total 208 260 Output Total 7809 6440 Balance -9480 -8599 Weight 105.4 kg 103.2 kg General appearance: PRESENT: no acute distress, cooperative Head exam: PRESENT: normocephalic Eye exam: PRESENT: EOMI Respiratory exam: PRESENT: decreased breath sounds - Right lung base, rales, rhonchi, unlabored, other - Pigtail catheter connected to drain with bloody fluid. ABSENT: accessory muscle use, symmetrical, tachypnea, wheezes Cardiovascular exam: PRESENT: RRR, +S1, +S2. ABSENT: tachycardia GI/Abdominal exam: PRESENT: normal bowel sounds, soft. ABSENT: distended, firm, guarding, rebound, rigid, tenderness Neurological exam: PRESENT: alert, awake, oriented to person, oriented to place, oriented to time Results Laboratory Results: 05/19/19 05:03 05/19/19 05:03 05/19/19 05/19/19 05:03 05:03 WBC 13.6 H RBC 3.04 L Hgb 9.2 L Hct 28.1 L MCV 92 MCH 30.4 MCHC 32.9 RDW 14.1 H Plt Count 99 L Seg Neutrophils % Not Reportable Sodium 138.5 Potassium 4.3 Chloride 107 Carbon Dioxide 27 Anion Gap 5 BUN 26 H Creatinine 0.70 Est GFR ( Amer) > 60 Glucose 151 H Calcium 10.9 H 05/15/19 22:35 Tracheal Aspirate Gram Stain - Final 05/15/19 22:35 Tracheal Aspirate Sputum Culture - Final NORMAL MCKENZIE 05/08/19 05/15/19 12:26 17:15 Creatine Kinase 70 NT-Pro-B Natriuret Pep 594 H Impressions: Chest CT 05/15/19 18:00 IMPRESSION: Significant right pleural effusion with right lower lobe con solidation. Atelectasis versus pneumonia. Thyroid gland appears to be enlarged. Thyroid Ultrasound 05/16/19 08:00 IMPRESSION: Multinodular goiter as detailed above. Within the left lobe of thyroid gland there is a TR 3 nodule that measures approximately 1.5 cm. Thoracentesis Ultrasound 05/17/19 08:00 IMPRESSION: Successful ultrasound-guided placement of a 10 Lithuanian all-purpose drainage catheter into the fluid-filled right pleural space. Chest X-Ray 05/19/19 06:00 IMPRESSION: Right-sided pleural space pigtail catheter unchanged. No pneumothorax. Persistent dense consolidation throughout the right middle and lower lobe. Assessment and Plan - Diagnosis (1) Malignant pleural effusion Is this a current diagnosis for this admission?: Yes Plan: -Right-sided -S/P thoracentesis with 10 Lithuanian pigtail catheter indwelling. Has drained well over 1 L of bloody effusion since placed. -We will continue to monitor output. (2) Acute respiratory failure Qualifiers: Respiratory failure complication: hypoxia and hypercapnia Qualified Code(s): J96.01 - Acute respiratory failure with hypoxia; J96.02 - Acute respiratory failure with hypercapnia Is this a current diagnosis for this admission?: Yes Plan: Resolved. Secondary to lung cancer on large right pleural effusion. Extubated on 05/17/2019. (3) Leukocytosis Qualifiers: Leukocytosis type: unspecified Qualified Code(s): D72.829 - Elevated white blood cell count, unspecified Is this a current diagnosis for this admission?: Yes Plan: No sign of new infection. We will continue to monitor with CBC. (4) Lung cancer Qualifiers: Laterality: right Lung location: lower lobe of lung Qualified Code(s): C34.31 - Malignant neoplasm of lower lobe, right bronchus or lung Is this a current diagnosis for this admission?: Yes Plan: -This is a recent diagnosis. -Was seen by Dr. Sands while in the ICU. Apparently awaiting results from markers including PD1 ligand in order to direct therapy -plan for rehab after discharge then to [facility] for lung cancer treatment. (5) Tachycardia Is this a current diagnosis for this admission?: Yes Plan: -Patient was started on amiodarone 400 mg every 12 hours yesterday in the ICU. This was done as a means to address patient's episode of resilient accelerated junctional tachycardia in the 160s which was aggravated by patient's acute worsening hypoxia. I will consult cardiology to see if amiodarone is still war ranted after lone provoked episode of junctional tachycardia. -Currently patient is has been in sinus but often tachycardic in the low 100s. -Continue with Lopressor -Keep on telemetry (6) DVT (deep venous thrombosis) Qualifiers: DVT location: lower extremity Affected thrombotic vein of extremity: femoral Chronicity: acute Laterality: right Qualified Code(s): I82.411 - Acute embolism and thrombosis of right femoral vein Is this a current diagnosis for this admission?: Yes Plan: continue Xarelto. (7) Diabetes Qualifiers: Diabetes mellitus type: type 2 Diabetes mellitus complication status: without complication Is this a current diagnosis for this admission?: Yes Plan: Poorly controlled on sliding scale alone. I will resume glimepiride and metformin. (8) Hemarthrosis, right knee Is this a current diagnosis for this admission?: Yes Plan: s/p right knee lavage with synovectomy and meniscectomy on 05/10/2019. -Outpatient follow-up with Dr. Jacome (9) Subclinical hyperthyroidism Is this a current diagnosis for this admission?: Yes Plan: -Reviewed by TFT -thyroid ultrasound reveals multinodular goiter with largest nodule of about 1.5 cm. -Patient needs outpatient follow-up with an warehouse manager. Continue with beta-jerica for now. - Time Time Spent with patient: 15-24 minutes
[2019-05-19] MEDS: METFORMIN HCL 500 MG TABLET PO SCH (18:27)
[2019-05-19] MEDS: GLIMEPIRIDE 4 MG TABLET PO SCH (18:27)
[2019-05-19] MEDS ORDERED: ONDANSETRON HCL INJ/PF 4 MG/2 ML SDV IV PRN (23:48)
[2019-05-20] MEDS: LEVALBUTEROL HCL NEB 1.25 MG/3 ML AMPUL NEB SCH ×3 (00:19→07:52)
[2019-05-20 06:32] LABS: ABSOLUTE EOSINOPHILS # (AUTO) 0.3 10^3/uL (0.0-0.6); ABSOLUTE LYMPHOCYTES (AUTO) 2.6 10^3/uL (0.5-4.7); ABSOLUTE MONOCYTES (AUTO) 0.9 10^3/uL (0.1-1.4); ABSOLUTE NEUT (AUTO) 9.7 10^3/uL (1.7-8.2); BASOPHILS % (AUTO) 0.4 % (0-2); HEMATOCRIT 28.2 % (36.0-47.0); HEMOGLOBIN 9.3 g/dL (12.0-15.5); MEAN CORPUSCULAR HEMOGLOBIN 30.3 pg (27.0-33.4); MEAN CORPUSCULAR HGB CONC 32.8 g/dL (32.0-36.0); MEAN CORPUSCULAR VOLUME 92 fl (80-97); MONOCYTES % (AUTO) 6.9 % (3-13); PLATELET COUNT 104 10^3/uL (150-450); RED BLOOD COUNT 3.06 10^6/uL (3.72-5.28); RED CELL DISTRIBUTION WIDTH 14.2 % (11.5-14.0); SEGMENTED NEUTROPHILS % (AUTO) 71.7 % (42-78); TOTAL CELLS COUNTED % (AUTO) 100 %; WHITE BLOOD COUNT 13.5 10^3/uL (4.0-10.5)
[2019-05-20 06:53] LABS: ANION GAP 5 (5-19); BLOOD UREA NITROGEN 24 mg/dL (7-20); CALCIUM 10.7 mg/dL (8.4-10.2); CARBON DIOXIDE 27 mmol/L (22-30); CHLORIDE 107 mmol/L (98-107); GLUCOSE 140 mg/dL (75-110); POTASSIUM 4.2 mmol/L (3.6-5.0)
[2019-05-20] MEDS: GLIMEPIRIDE 4 MG TABLET PO SCH ×2 (08:36→16:28)
[2019-05-20] MEDS: METFORMIN HCL 500 MG TABLET PO SCH ×2 (08:37→16:28)
[2019-05-20] MEDS: FUROSEMIDE INJ/PF 20 MG/2 ML SDV IV SCH (09:54)
[2019-05-20] MEDS: CELECOXIB 200 MG CAPSULE PO SCH ×2 (09:55→21:46)
[2019-05-20] MEDS: RIVAROXABAN 10 MG TABLET PO SCH (09:55)
[2019-05-20] MEDS: AMIODARONE HCL 200 MG TABLET PO SCH ×2 (09:55→21:45)
[2019-05-20] MEDS: LISINOPRIL 10 MG TABLET PO SCH (09:55)
[2019-05-20] MEDS: METOPROLOL TARTRATE 25 MG TABLET PO SCH ×2 (09:55→21:45)
[2019-05-20] MEDS: FAMOTIDINE 20 MG TABLET PO SCH ×2 (09:55→21:46)
[2019-05-20] MEDS: INSULIN LISPRO 100 UNIT/ML 3 ML VIAL SUBCUT SCH ×4 (09:56→21:47)
[2019-05-20] MEDS: POLYETHYLENE GLYCOL 3350 POWDER 17 GM/1 PACKET PO SCH (09:56)
--- NOTE | 2019-05-20 10:22 | PDOC PROGRESS REPORT ---
Subjective Progress Note for:: 05/20/19 Subjective:: Spoke with patient and her at bedside. Patient denies any shortness of breath or laying down but states she still gets a little short of breath when attempting to ambulate. States that she coughs after breathing treatments. Denies any fever. Coughing up some sputum. Patient and her are quite eager to get the cancer treatment started at [facility] however is still concerned about if she will be able to travel given her respiratory condition. Their hope is that she can be tuned up sufficiently to the point where she can tolerate a trip via air to [place] to get her treatments started at [facility]. Reason For Visit: RIGHT KNEE PAIN Physical Exam Vital Signs: Temp Pulse Resp BP Pulse Ox 97.6 F 104 H 16 112/52 L 94 05/20/19 08:35 05/20/19 08:35 05/20/19 08:35 05/20/19 08:35 05/20/19 08:35 Pulse Oximeter Nocturnal Start: 05/14/19 13:35 Freq: RTQ4 Status: Complete Protocol: Document 05/15/19 07:26 CMI (Rec: 05/15/19 07:27 CMI [email or web address]) Nocturnal Pulse Oximetry Equipment Usage Equipment Discontinued Continuous SpO2 Machine # 5 Intake & Output 05/19/19 05/20/19 05/21/19 06:59 06:59 06:59 Intake Total 260 575 Output Total 3140 650 Balance -2880 -75 Weight 103.2 kg 103 kg General appearance: PRESENT: no acute distress, cooperative Neck exam: ABSENT: JVD Respiratory exam: PRESENT: decreased breath sounds, rales, unlabored. ABSENT: symmetrical, tachypnea, wheezes Cardiovascular exam: PRESENT: +S1, +S2, tachycardia. ABSENT: irregular rhythm, systolic murmur GI/Abdominal exam: PRESENT: normal bowel sounds, soft. ABSENT: firm, guarding, rebound, rigid, tenderness Neurological exam: PRESENT: alert, awake, oriented to person, oriented to place, oriented to time, oriented to situation Results Laboratory Results: 05/20/19 06:02 05/20/19 06:02 05/20/19 05/20/19 06:02 06:02 WBC 13.5 H RBC 3.06 L Hgb 9.3 L Hct 28.2 L MCV 92 MCH 30.3 MCHC 32.8 RDW 14.2 H Plt Count 104 L Seg Neutrophils % 71.7 Sodium 138.9 Potassium 4.2 Chloride 107 Carbon Dioxide 27 Anion Gap 5 BUN 24 H Creatinine 0.57 Est GFR ( Amer) > 60 Glucose 140 H Calcium 10.7 H 05/08/19 05/15/19 12:26 17:15 Creatine Kinase 70 NT-Pro-B Natriuret Pep 594 H Impressions: Chest CT 05/15/19 18:00 IMPRESSION: Significant right pleural effusion with right lower lobe consolidation. Atelectasis versus pneumonia. Thyroid gland appears to be enlarged. Thyroid Ultrasound 05/16/19 08:00 IMPRESSION: Multinodular goiter as detailed above. Within the left lobe of thyroid gland there is a TR 3 nodule that measures approximately 1.5 cm. Thoracentesis Ultrasound 05/17/19 08:00 IMPRESSION: Successful ultrasound-guided placement of a 10 Setswana all-purpose drainage catheter into the fluid-filled right pleural space. Assessment and Plan - Diagnosis (1) Malignant pleural effusion Is this a current diagnosis for this admission?: Yes Plan: -Right-sided -S/P thoracentesis on 05/17/2019 with 10 Setswana chest tube placed. Has drained about 1.7 L of bloody effusion since placed. Informed by nurse that overnight, only drained 170 cc. -Repeat chest x-ray image reviewed by me this morning and still shows no improvement in the pleural effusion -I have discussed this with the radiologist to see if any adjustments need to be made to the chest tube to achieve more drainage and he will be coming in to evaluate the situation to see if the chest tube needs to be repositioned, declogged or changed to a larger tube. (2) Acute respiratory failure Qualifiers: Respiratory failure complication: hypoxia and hypercapnia Qualified Code(s): J96.01 - Acute respiratory failure with hypoxia; J96.02 - Acute respiratory failure with hypercapnia Is this a current diagnosis for this admission?: Yes Plan: Resolved. Secondary to lung cancer on large right pleural effusion. Extubated on 05/17/2019. (3) Postobstructive pneumonia Is this a current diagnosis for this admission?: Yes Plan: -In lieu of patient's persistent leukocytosis, cough and reported CT imaging of right lung consolidation, I have opted to start treatment with Levaquin for 7 days for potential postobstructive pneumonia in the right lung. -Send sputum culture (4) Lung cancer Qualifiers: Laterality: right Lung location: lower lobe of lung Qualified Code(s): C34.31 - Malignant neoplasm of lower lobe, right bronchus or lung Is this a current diagnosis for this admission?: Yes Plan: -This is a recent diagnosis. -Patient's plan is to go to [facility] [place] in [place] for treatment of this. Patient already has appointment there. Patient will like to be tuned up enough to be safely discharged and then take a flight to [place] to start irish tment for her lung cancer as soon as possible. (5) Tachycardia Is this a current diagnosis for this admission?: Yes Plan: -Patient was started on amiodarone 400 mg every 12 hours in the ICU. This was done as a means to address patient's episode of resilient junctional ectopic tachycardia in the 160s which was aggravated by patient's acute worsening hypoxia. The initial episode was recently ends to synchronized cardioversion x3 and only responded to amiodarone IV bolus. -I consulted cardiology to see if this is adequate therapy for the provoked episode of junctional ectopic tachycardia. -Since then, patient is has been maintaining sinus rhythm but often tachycardic in the low 100s. -Continue with Lopressor -Keep on telemetry (6) DVT (deep venous thrombosis) Qualifiers: DVT location: lower extremity Affected thrombotic vein of extremity: femoral Chronicity: acute Laterality: right Qualified Code(s): I82.411 - Acute embolism and thrombosis of right femoral vein Is this a current diagnosis for this admission?: Yes Plan: continue Xarelto. (7) Diabetes Qualifiers: Diabetes mellitus type: type 2 Diabetes mellitus complication status: with out complication Is this a current diagnosis for this admission?: Yes Plan: Poorly controlled on sliding scale alone. Glimepiride and metformin resumed. (8) Hemarthrosis, right knee Is this a current diagnosis for this admission?: Yes Plan: s/p right knee lavage with synovectomy and meniscectomy on 05/10/2019. -Outpatient follow-up with Dr. Jacome (9) Subclinical hyperthyroidism Is this a current diagnosis for this admission?: Yes Plan: -Reviewed TFT -thyroid ultrasound reveals multinodular goiter with largest nodule of about 1.5 cm. -Patient needs outpatient follow-up with an sweet dough mixer. Continue with beta-jerica for now. - Time Time Spent with patient: 25-34 minutes
[2019-05-20] MEDS: LEVOFLOXACIN 750 MG/D5W RTU 750 MG/150 ML RTUPB IV SCH (12:08)
--- NOTE | 2019-05-20 12:32 | RADIOLOGY REPORT (SQ) ---
EXAM DESCRIPTION: CHEST SINGLE VIEW COMPLETED DATE/TIME: 05/20/2019 7:28 am REASON FOR STUDY: DAILY CHEST XRAY WHILE CHEST TUBES ARE IN. COMPARISON: 05/19/2019. EXAM PARAMETERS: NUMBER OF VIEWS: One view. TECHNIQUE: Single frontal radiographic view of the chest acquired. RADIATION DOSE: NA LIMITATIONS: None. FINDINGS: LUNGS AND PLEURA: The right-sided pigtail catheter is unchanged. No pneumothorax. Persis tent density in the right hemithorax. Left lung fairly clear. MEDIASTINUM AND HILAR STRUCTURES: No masses. Contour normal. HEART AND VASCULAR STRUCTURES: Stable cardiomegaly. BONES: No acute findings. HARDWARE: Right-sided pigtail catheter. OTHER: No other significant finding. IMPRESSION: NO SIGNIFICANT INTERVAL CHANGE. TECHNICAL DOCUMENTATION: JOB ID: [id number] [employer]- All Rights Reserved Reading location - IP/workstation name: [email or web address]
[2019-05-20] MEDS ORDERED: FENTANYL CITRATE INJ/PF 100 MCG/2 ML AMPUL IV ONE (12:45)
[2019-05-20] MEDS ORDERED: MIDAZOLAM HCL INJ 5 MG/1 ML VIAL IV PRN (12:45)
--- NOTE | 2019-05-20 14:39 | RADIOLOGY REPORT (SQ) ---
EXAM DESCRIPTION: CT THORACENTESIS W/CHEST TUBE COMPLETED DATE/TIME: 05/20/2019 2:21 pm REASON FOR STUDY: Rt Pleural effusion COMPARISON: Chest x-ray dated 05/20/2019. FLUORO TIME: 3 0 images saved to PACS. TECHNIQUE: Image guided chest tube placement using sterile technique. LIMITATIONS: None FINDINGS: After written consent was obtained and explaining the risks and benefits of conscious louie tion , the patient was placed left side down. A time out was then called for site verification. An e ntry site was then marked using CT guidance. The posterior right wall was then prepped and draped in a sterile fashion. The site was then anesthetized using 10 ml of 1% lidocaine solution. An 11 blade scalpel was used to make a small skin incision. A 18g -7cm needle was advanced into the chest wall. A.038 guidewire was passed through the needle. The tract was then dilated using a 10 dilator. A 1 2 fr drain was then placed over the wire. The catheter was then attached to the collection device. The entry site was covered with a sterile bandage. Existing 10 Bulgarian chest tube was almost all the way out of the right pleural space . Chest tube was removed. Petroleum dressing was applied. Patient developed pneumothorax during procedure. Air was evacuated immediately after procedure using syringe and three-way stopcock. Pigtail catheter was pulled back 3 cm and secured. IV conscious sedation was administered and physician direction by the registered nurse using 2 radha grams of Versed and 100 micrograms of fentanyl. Physiologic monitoring was provided before, during, a nd after sedation. The total sedation time was 20 minutes. Documentation face to face time, the performing proceduralist, spent monitoring the patient: 25minute s. IMPRESSION: SUCCESSFUL PLACEMENT OF A RIGHT SIDED CHEST TUBE USING CT GUIDANCE. COMMENT: Patient medication list reviewed: Yes- Quality ID# [id number]:Eligible professional attests to do cumenting in the medical record they obtained, updated, or reviewed the patient's current medications . Quality ID 145: Final reports for procedures using fluoroscopy that document radiation exposure felicia saul, or exposure time and number of fluorographic images (if radiation exposure indices are not avail able) TECHNICAL DOCUMENTATION: JOB ID: [id number] [employer]- All Rights Reserved Reading location - IP/workstation name: [email or web address]
[2019-05-20] MEDS: OXYCODONE HCL IR 5 MG TABLET PO PRN ×2 (14:45→20:17)
--- NOTE | 2019-05-20 15:25 | RADIOLOGY REPORT (SQ) ---
EXAM DESCRIPTION: CHEST SINGLE VIEW COMPLETED DATE/TIME: 05/20/2019 2:57 pm REASON FOR STUDY: S/P CHEST TUBE INSERTION COMPARISON: CT chest 05/20/2019, 05/15/2019 EXAM PARAMETERS: NUMBER OF VIEWS: One view. TECHNIQUE: Single frontal radiographic view of the chest acquired. RADIATION DOSE: NA LIMITATIONS: None. FINDINGS: LUNGS AND PLEURA: A new right-sided pleural space pigtail catheter is present, clot L2 ove r the right chest. No pleural effusion. No pneumothorax. Masslike consolidation is present in the right mid and lower lungs. Left hemithorax unremarkable. MEDIASTINUM AND HILAR STRUCTURES: Enlarged right hilum unchanged. HEART AND VASCULAR STRUCTURES: No cardiomegaly BONES: Lytic defect right 3rd posterior rib HARDWARE: Right-sided pleural space pigtail catheter OTHER: No other significant finding. IMPRESSION: New right-sided pleural space pigtail catheter in place. No pneumothorax. Unchanged right hilar enlargement, mass like consolidation in the right lung and lytic destruction of the right posterior 3rd rib TECHNICAL DOCUMENTATION: JOB ID: [id number]- All Rights Reserved Reading location - IP/workstation name: [id number]
[2019-05-21] MEDS: ACETAMINOPHEN 325 MG TABLET PO PRN ×3 (02:59→19:32)
[2019-05-21] MEDS: OXYCODONE HCL IR 5 MG TABLET PO PRN ×2 (03:00→12:08)
[2019-05-21 05:16] LABS: HEMATOCRIT 29.3 % (36.0-47.0); HEMOGLOBIN 9.6 g/dL (12.0-15.5); MEAN CORPUSCULAR HGB CONC 32.8 g/dL (32.0-36.0); MEAN CORPUSCULAR VOLUME 92 fl (80-97); PLATELET COUNT 108 10^3/uL (150-450); RED CELL DISTRIBUTION WIDTH 13.8 % (11.5-14.0); WHITE BLOOD COUNT 13.2 10^3/uL (4.0-10.5)
[2019-05-21 05:40] LABS: ABSOLUTE LYMPHOCYTES# (MANUAL) 3.3 10^3/uL (0.5-4.7); ABSOLUTE MONOCYTES # (MANUAL) 0.3 10^3/uL (0.1-1.4); BASOPHILS % (MANUAL) 0 % (0-2); EOSINOPHILS % (MANUAL) 1 % (0-6); LYMPHOCYTES % (MANUAL) 25 % (13-45); MONOCYTES % (MANUAL) 2 % (3-13); SEGMENTED NEUTROPHILS % (MAN) 72 % (42-78); TOTAL CELLS COUNTED 100
[2019-05-21 05:41] LABS: OVALOCYTES SLIGHT; PLATELET COMMENT DECREASED; POIKILOCYTOSIS SLIGHT; POLYCHROMASIA SLIGHT
[2019-05-21] MEDS: GLIMEPIRIDE 4 MG TABLET PO SCH (08:02)
[2019-05-21] MEDS: METFORMIN HCL 500 MG TABLET PO SCH ×2 (08:02→16:56)
[2019-05-21] MEDS: INSULIN LISPRO 100 UNIT/ML 3 ML VIAL SUBCUT SCH ×4 (08:54→22:07)
[2019-05-21] MEDS: FAMOTIDINE 20 MG TABLET PO SCH ×2 (09:22→22:08)
[2019-05-21] MEDS: METOPROLOL TARTRATE 25 MG TABLET PO SCH ×2 (09:22→22:08)
[2019-05-21] MEDS: LISINOPRIL 10 MG TABLET PO SCH (09:22)
[2019-05-21] MEDS: CELECOXIB 200 MG CAPSULE PO SCH ×2 (09:22→22:09)
[2019-05-21] MEDS: AMIODARONE HCL 200 MG TABLET PO SCH ×2 (09:23→22:08)
[2019-05-21] MEDS: RIVAROXABAN 10 MG TABLET PO SCH (09:23)
[2019-05-21] MEDS: LEVOFLOXACIN 750 MG/D5W RTU 750 MG/150 ML RTUPB IV SCH (09:23)
[2019-05-21] MEDS: FUROSEMIDE INJ/PF 20 MG/2 ML SDV IV SCH (09:23)
[2019-05-21 11:25] LABS: C DIFFICILE GDH NEGATIVE (NEGATIVE)
[2019-05-21] MEDS: POLYETHYLENE GLYCOL 3350 POWDER 17 GM/1 PACKET PO SCH (12:07)
[2019-05-21] MEDS ORDERED: MORPHINE SULFATE 10 MG/ML INJ ONE (15:32)
[2019-05-21] MEDS ORDERED: MORPHINE SULFATE 10 MG/ML INJ IV PRN (15:44)
[2019-05-21] MEDS ORDERED: DIPHENOXYLATE HCL/ATROP SULF 2.5-0.025 MG TABLET PO PRN (15:45)
--- NOTE | 2019-05-21 15:47 | PDOC PROGRESS REPORT ---
Subjective Progress Note for:: 05/21/19 Subjective:: Currently having a hypoglycemic episode with a glucose of 46. The patient and nursing admit that she has not been eating. She feels like food gets stuck in her throat. Are going to try a soft diet. Also she is having diarrhea. It was C. difficile negative. I will stop any laxatives and stool softeners and add antidiarrhea agents. Reason For Visit: RIGHT KNEE PAIN Physical Exam Vital Signs: Temp Pulse Resp BP Pulse Ox 97.9 F 91 16 102/42 L 98 05/21/19 12:18 05/21/19 14:00 05/21/19 12:18 05/21/19 12:18 05/21/19 12:18 Pulse Oximeter Nocturnal Start: 05/14/19 13:35 Freq: RTQ4 Status: Complete Protocol: Document 05/15/19 07:26 CMI (Rec: 05/15/19 07:27 CMI [email or web address]) Nocturnal Pulse Oximetry Equipment Usage Equipment Discontinued Continuous SpO2 Machine # 5 Intake & Output 05/20/19 05/21/19 05/22/19 06:59 06:59 06:59 Intake Total 575 931 150 Output Total 650 935 Balance -75 -4 150 Weight 103 kg 104.4 kg General appearance: PRESENT: cooperative, mild distress, well-developed Head exam: PRESENT: atraumatic, normocephalic Ear exam: PRESENT: normal external ear exam. ABSENT: bleeding, drainage Respiratory exam: PRESENT: decreased breath sounds - On the right, symmetrical, unlabored. ABSENT: rales, rhonchi, tachypnea, wheezes Cardiovascular exam: PRESENT: irregular rhythm GI/Abdominal exam: PRESENT: hypoactive bowel sounds, soft. ABSENT: distended, tenderness Rectal exam: PRESENT: deferred Neurological exam: PRESENT: alert, awake, oriented to person, oriented to place, oriented to time, oriented to situation, CN II-XII grossly intact Psychiatric exam: PRESENT: flat affect. ABSENT: agitated, anxious Focused psych exam: ABSENT: delusional, restlessness Results Laboratory Results: 05/21/19 04:56 05/20/19 06:02 05/21/19 04:56 WBC 13.2 H RBC 3.20 L Hgb 9.6 L Hct 29.3 L MCV 92 MCH 30.0 MCHC 32.8 RDW 13.8 Plt Count 108 L Seg Neutrophils % Not Reportable 05/15/19 22:49 Blood Blood Culture - Final NO GROWTH IN 5 DAYS 05/15/19 22:18 Blood Blood Culture - Final NO GROWTH IN 5 DAYS 05/08/19 05/15/19 12:26 17:15 Creatine Kinase 70 NT-Pro-B Natriuret Pep 594 H Impressions: Chest CT 05/15/19 18:00 IMPRESSION: Significant right pleural effusion with right lower lobe consolidation. Atelectasis versus pneumonia. Thyroid gland appears to be enlarged. Thyroid Ultrasound 05/16/19 08:00 IMPRESSION: Multinodular goiter as detailed above. Within the left lobe of th yroid gland there is a TR 3 nodule that measures approximately 1.5 cm. Thoracentesis Ultrasound 05/17/19 08:00 IMPRESSION: Successful ultrasound-guided placement of a 10 Welsh all-purpose drainage catheter into the fluid-filled right pleural space. Thoracentesis 05/20/19 00:00 IMPRESSION: SUCCESSFUL PLACEMENT OF A RIGHT SIDED CHEST TUBE USING CT GUIDANCE. Chest X-Ray 05/20/19 15:30 IMPRESSION: New right-sided pleural space pigtail catheter in place. No pneumothorax. Unchanged right hilar enlargement, mass like consolidation in the right lung and lytic destruction of the right posterior 3rd rib Assessment and Plan - Diagnosis (1) Malignant pleural effusion Is this a current diagnosis for this admission?: Yes Plan: -Right-sided -S/P thoracentesis on 05/17/2019 with 10 Welsh chest tube placed. Has drained about 1.7 L of bloody effusion since placed. Informed by nurse that overnight, only drained 170 cc. -Repeat chest x-ray image reviewed by me this morning and still shows no im provement in the pleural effusion -I have discussed this with the radiologist to see if any adjustments need to be made to the chest tube to achieve more drainage and he will be coming in to evaluate the situation to see if the chest tube needs to be repositioned, declogged or changed to a larger tube. 05/21/2019-the chest tube was eventually exchanged. It put out 625 mL yesterday and 225 mL so far today. Pathology is still pending. The patient does have underlying lung cancer. Continue chest tube for the time being. Hopefully it can be removed soon and the patient stabilized so that she can travel to [place] for treatment of her lung cancer. (2) Acute respiratory failure Qualifiers: Respiratory failure complication: hypoxia and hypercapnia Qualified Code(s): J96.01 - Acute respiratory failure with hypoxia; J96.02 - Acute respiratory failure with hypercapnia Is this a current diagnosis for this admission?: Yes Plan: Resolved. Secondary to lung cancer on large right pleural effusion. Extubated on 05/17/2019. (3) Postobstructive pneumonia Is this a current diagnosis for this admission?: Yes Plan: -In lieu of patient's persistent leukocytosis, cough and reported CT imaging of right lung consolidation, I have opted to start treatment with Levaquin for 7 days for potential postobstructive pneumonia in the right lung. -Send sputum culture 05/21/2019-sputum culture is still pending. Some bacteria and a few leukocytes were noted. Continue antibiotics until causative agent can be identified. (4) Lung cancer Qualifiers: Laterality: right Lung location: lower lobe of lung Qualified Code(s): C34.31 - Malignant neoplasm of lower lobe, right bronchus or lung Is this a current diagnosis for this admission?: Yes Plan: -This is a recent diagnosis. -Patient's plan is to go to [facility] in [place] for treatment of this. Patient already has appointment there. Patient will like to be tuned up enough to be safely discharged and then take a flight to [place] to start treatment for her lung cancer as soon as possible. 05/21/2019-seen this patient is stable enough she will proceed to [place] for treatment. (5) Tachycardia Is this a current diagnosis for this admission?: Yes Plan: -Patient was started on amiodarone 400 mg every 12 hours in the ICU. This was done as a means to address patient's episode of resilient junctional ectopic tachycardia in the 160s which was aggravated by patient's acute worsening hypoxia. The initial episode was recently ends to synchronized cardioversion x3 and only responded to amiodarone IV bolus. -I consulted cardiology to see if this is adequate therapy for the provoked episode of junctional ectopic tachycardia. -Since then, patient is has been maintaining sinus rhythm but often tachycardic in the low 100s. -Continue with Lopressor -Keep on telemetry 05/21/2019-the metoprolol seems to be effective. The heart rate has been under 100. Continue to monitor on telemetry. (6) DVT (deep venous thrombosis) Qualifiers: DVT location: lower extremity Affected thrombotic vein of extremity: femoral Chronicity: acute Laterality: right Qualified Code(s): I82.411 - Acute embolism and thrombosis of right femoral vein Is this a current diagnosis for this admission?: Yes Plan: continue Xarelto. 05/21/2019-as above (7) Diabetes Qualifiers: Diabetes mellitus type: type 2 Diabetes mellitus complication status: without complication Is this a current diagnosis for this admission?: Yes Plan: Poorly controlled on sliding scale alone. Glimepiride and metformin resumed. 05/21/2019-the patient had significant hypoglycemia today with a glucose of 46. Her appetite has been quite poor. I am going to discontinue her Amaryl at this time. We also changing her diet to improve p.o. intake. We will slowly resume the Amaryl if her sugars rebounded and are too high. (8) Hemarthrosis, right knee Is this a current diagnosis for this admission?: Yes Plan: s/p right knee lavage with synovectomy and meniscectomy on 05/10/2019. -Outpatient follow-up with Dr. Jacome (9) Subclinical hyperthyroidism Is this a current diagnosis for this admission?: Yes Plan: -Reviewed TFT -thyroid ultrasound reveals multinodular goiter with largest nodule of about 1.5 cm. -Patient needs outpatient follow-up with an forest products teacher. Continue with beta-jerica for now. 05/21/2019-if the patient is going to [place] then the most reasonable option would be to set up endocrinology at [facility] where she will be getting treatment for her lung cancer. (10) Reactive depression Is this a current diagnosis for this admission?: Yes Plan: 05/21/2019-patient's affect and demeanor certainly suggest depression. I believe she is overwhelmed with the news of the malignancy. I did specifically ask her if she felt depressed and she denied this. I will continue to work with the patient as I think an antidepressant would help her get through the tough road ahead. (11) Diarrhea Qualifiers: Diarrhea type: unspecified type Qualified Code(s): R19.7 - Diarrhea, unspecified Is this a current diagnosis for this admission?: Yes Plan: 05/21/2019-the patient has been having diarrhea. It was foul-smelling. C. difficile testing was negative. It certainly could be the MiraLAX or other agent. I have change the MiraLAX to as needed and patient will have Lomotil available if needed. - Time Time Spent with patient: 15-24 minutes Medications reviewed and adjusted accordingly: Yes Anticipated discharge: Home
[2019-05-21] MEDS: DEXTROSE 50%-WATER 25 GM/50 ML DISP.SYRIN IV PRN ×2 (15:49→21:19)
[2019-05-21] MEDS ORDERED: MORPHINE SULFATE 10 MG/ML INJ IV ONE (16:15)
[2019-05-21] MEDS: MORPHINE SULFATE 10 MG/ML INJ IV PRN (22:22)
[2019-05-22] MEDS: DEXTROSE 50%-WATER 25 GM/50 ML DISP.SYRIN IV PRN ×3 (01:05→04:53)
[2019-05-22] MEDS ORDERED: LIDOCAINE 1% INJ-PF (10 MG/ML) 30 ML SDV ONE (01:59)
[2019-05-22] MEDS: OXYCODONE HCL IR 5 MG TABLET PO PRN ×3 (02:09→22:55)
[2019-05-22 02:54] LABS: HEMATOCRIT 29.1 % (36.0-47.0); HEMOGLOBIN 9.6 g/dL (12.0-15.5); MEAN CORPUSCULAR HEMOGLOBIN 30.4 pg (27.0-33.4); MEAN CORPUSCULAR HGB CONC 32.9 g/dL (32.0-36.0); MEAN CORPUSCULAR VOLUME 92 fl (80-97); PLATELET COUNT 124 10^3/uL (150-450); RED BLOOD COUNT 3.15 10^6/uL (3.72-5.28); WHITE BLOOD COUNT 15.6 10^3/uL (4.0-10.5)
--- NOTE | 2019-05-22 02:55 | Operative Report ---
Operative Report DATE OF SURGERY: 05/22/19 PREOPERATIVE DIAGNOSIS: Critical need for intravenous access. POSTOPERATIVE DIAGNOSIS: Critical need for intravenous access. OPERATION: Right subclavian triple-lumen central venous catheter placement SURGEON: TIMUR JAMES ANESTHESIA: Local TISSUE REMOVED OR ALTERED: None COMPLICATIONS: None ESTIMATED BLOOD LOSS: 10 cc INTRAOPERATIVE FINDINGS: None PROCEDURE: Patient with multiple medical problems with loss of intravenous access despite multiple peripheral attempts. Consult now being made for central line placement on an emergency basis. Informed consent was obtained. Patient's right neck and chest were prepped and draped in usual sterile fashion. Local anesthetic was administered. The right subclavian vein was entered without difficulty on the first stick. Triple-lumen central venous catheter was placed via the Seldinger technique without difficulty. It withdrew dark nonpulsatile blood and flushed easily. It was sutured in place. Dressings were applied. Patient tolerated procedure well with no apparent complications. Stat portable chest x-ray was ordered.
[2019-05-22 03:05] LABS: ANION GAP 6 (5-19); BLOOD UREA NITROGEN 27 mg/dL (7-20); CALCIUM 10.2 mg/dL (8.4-10.2); CARBON DIOXIDE 27 mmol/L (22-30); CHLORIDE 100 mmol/L (98-107); GLUCOSE 84 mg/dL (75-110); POTASSIUM 4.2 mmol/L (3.6-5.0)
[2019-05-22] MEDS: MORPHINE SULFATE 10 MG/ML INJ IV PRN ×3 (03:05→18:44)
[2019-05-22] MEDS: ACETAMINOPHEN 325 MG TABLET PO PRN ×2 (03:05→22:55)
--- NOTE | 2019-05-22 03:30 | RADIOLOGY REPORT (SQ) ---
EXAM DESCRIPTION: X-ray single view chest. CLINICAL HISTORY: 64 years Female, LINE PLACEMENT COMPARISON: Chest x-ray performed on 05/20/[address] performed on 05/20/2019 TECHNIQUE: Single portable x-ray view of the chest performed on 05/22/2019 at 3:01 AM FINDINGS: The left lung is well-expanded. There appears to be a retrocardiac opacity which may reflect atelectasis. There is persistent volume loss in the right inferior hemithorax. No definite pneumothorax is appreciated. The cardiac silhouette is grossly stable and appears to be within normal limits. The mediastinal contours are normal. There appears to be an expansile process of the lateral right third rib and fracture of the lateral right sixth rib. No focal soft tissue abnormalities are seen. Lines and tubes: The right subclavian central venous catheter tip overlies the region of the cavoatrial junction. There is a right-sided pigtail pleural drainage catheter projecting over the lateral aspect of the right hemithorax. IMPRESSION: 1. The right subclavian central venous catheter tip overlies the region of the cavoatrial junction. 2. Right-sided pigtail pleural drainage catheter present. 3. Ongoing volume loss in the right inferior hemithorax. No definite pneumothorax identified. 4. Suspect mild left basilar atelectasis. 5. Expansile process involving the lateral aspect of the right third rib and fracture of the lateral right sixth rib.
[2019-05-22] MEDS: DEXTROSE 10%-WATER 1,000 ML IV PRN ×2 (04:25→19:54)
--- NOTE | 2019-05-22 08:50 | PDOC PROGRESS REPORT ---
Subjective Progress Note for:: 05/22/19 Subjective:: Patient seems a little bit better today. The right knee seems less swollen. Chest tube has put out about thousand cc over the last 24 hours. Reason For Visit: RIGHT KNEE PAIN Physical Exam Vital Signs: Temp Pulse Resp BP Pulse Ox 97.4 F 86 20 135/59 H 97 05/22/19 04:20 05/22/19 04:20 05/22/19 04:20 05/22/19 04:20 05/22/19 04:20 Pulse Oximeter Nocturnal Start: 05/14/19 13:35 Freq: RTQ4 Status: Complete Protocol: Document 05/15/19 07:26 CMI (Rec: 05/15/19 07:27 CMI [id number]) Nocturnal Pulse Oximetry Equipment Usage Equipment Discontinued Continuous SpO2 Machine # 5 Intake & Output 05/21/19 05/22/19 05/23/19 06:59 06:59 06:59 Intake Total 931 830 Output Total 935 490 Balance -4 340 Weight 104.4 kg 104.1 kg General appearance: PRESENT: no acute distress, well-developed, well-nourished Head exam: PRESENT: atraumatic, normocephalic Eye exam: PRESENT: conjunctiva pink, EOMI, PERRLA. ABSENT: scleral icterus Ear exam: PRESENT: normal external ear exam Mouth exam: PRESENT: moist, tongue midline Neck exam: ABSENT: carotid bruit, JVD, lymphadenopathy, thyromegaly Respiratory exam: PRESENT: clear to auscultation shivam. ABSENT: rales, rhonchi, wheezes Cardiovascular exam: PRESENT: RRR. ABSENT: diastolic murmur, rubs, systolic murmur Pulses: PRESENT: normal dorsalis pedis pul Vascular exam: PRESENT: normal capillary refill GI/Abdominal exam: PRESENT: normal bowel sounds, soft. ABSENT: distended, guarding, mass, organolmegaly, rebound, tenderness Rectal exam: PRESENT: deferred Extremities exam: PRESENT: full ROM. ABSENT: calf tenderness, clubbing, pedal edema Neurological exam: PRESENT: alert, awake, oriented to person, oriented to place, oriented to time, oriented to situation, CN II-XII grossly intact. ABSENT: motor sensory deficit Psychiatric exam: PRESENT: appropriate affect, normal mood. ABSENT: homicidal ideation, suicidal ideation Skin exam: PRESENT: dry, intact, warm. ABSENT: cyanosis, rash Results Laboratory Results: 05/22/19 02:40 05/22/19 02:40 05/22/19 05/22/19 02:40 02:40 WBC 15.6 H RBC 3.15 L Hgb 9.6 L Hct 29.1 L MCV 92 MCH 30.4 MCHC 32.9 RDW 14.0 Plt Count 124 L Sodium 132.9 L Potassium 4.2 Chloride 100 Carbon Dioxide 27 Anion Gap 6 BUN 27 H Creatinine 0.77 Est GFR ( Amer) > 60 Glucose 84 Calcium 10.2 Magnesium 1.5 L 05/20/19 18:18 Sputum Gram Stain - Final 05/20/19 18:18 Sputum Sputum Culture - Final REDUCED NORMAL MCKENZIE 05/08/19 05/15/19 12:26 17:15 Creatine Kinase 70 NT-Pro-B Natriuret Pep 594 H Impressions: Chest CT 05/15/19 18:00 IMPRESSION: Significant right pleural effusion with right lower lobe consolidation. Atelectasis versus pneumonia. Thyroid gland appears to be enla rged. Thyroid Ultrasound 05/16/19 08:00 IMPRESSION: Multinodular goiter as detailed above. Within the left lobe of thyroid gland there is a TR 3 nodule that measures approximately 1.5 cm. Thoracentesis Ultrasound 05/17/19 08:00 IMPRESSION: Successful ultrasound-guided placement of a 10 [place] all-purpose drainage catheter into the fluid-filled right pleural space. Thoracentesis 05/20/19 00:00 IMPRESSION: SUCCESSFUL PLACEMENT OF A RIGHT SIDED CHEST TUBE USING CT GUIDANCE. Chest X-Ray 05/22/19 00:00 IMPRESSION: 1. The right subclavian central venous catheter tip overlies the region of the cavoatrial junction. 2. Right-sided pigtail pleural drainage catheter present. 3. Ongoing volume loss in the right inferior hemithorax. No definite pneumothorax identified. 4. Suspect mild left basilar atelectasis. 5. Expansile process involving the lateral aspect of the right third rib and fracture of the lateral right sixth rib. Status: Image reviewed by me Assessment & Plan - Diagnosis (1) Malignant pleural effusion Is this a current diagnosis for this admission?: Yes Plan: Now with documented malignant pleural effusion with cytology positive. Discussed with hospitalist team, if chest tube cannot be because of high flow, then it needs to be transition to a Pleurx catheter which surgery can do. (2) Lung cancer Qualifiers: Laterality: right Lung location: lower lobe of lung Qualified Code(s): C34.31 - Malignant neoplasm of lower lobe, right bronchus or lung Is this a current diagnosis for this admission?: Yes Plan: Stage IV lung cancer, she will need to start systemic therapy as an outpatient. She would like to have this done in [place]. We are trying to work with that. (3) Effusion, right knee Is this a current diagnosis for this admission?: Yes Plan: Secondary hemarthrosis, seems better. Asked nursing to get physical therapy to get her on her feet and walk if possible. - Time Time Spent with patient: 35 or more minutes
[2019-05-22] MEDS: FAMOTIDINE 20 MG TABLET PO SCH ×2 (09:09→21:17)
[2019-05-22] MEDS: AMIODARONE HCL 200 MG TABLET PO SCH ×2 (09:09→21:18)
[2019-05-22] MEDS: CELECOXIB 200 MG CAPSULE PO SCH ×2 (09:09→21:17)
[2019-05-22] MEDS: RIVAROXABAN 10 MG TABLET PO SCH (09:09)
[2019-05-22] MEDS: LISINOPRIL 10 MG TABLET PO SCH (09:09)
[2019-05-22] MEDS: METOPROLOL TARTRATE 25 MG TABLET PO SCH ×2 (09:09→21:17)
[2019-05-22] MEDS: LEVOFLOXACIN 750 MG/D5W RTU 750 MG/150 ML RTUPB IV SCH (09:09)
[2019-05-22] MEDS: FUROSEMIDE INJ/PF 20 MG/2 ML SDV IV SCH (09:09)
[2019-05-22] MEDS: INSULIN LISPRO 100 UNIT/ML 3 ML VIAL SUBCUT SCH ×4 (09:28→22:21)
--- NOTE | 2019-05-22 16:28 | PDOC PROGRESS REPORT ---
Subjective Progress Note for:: 05/22/19 Subjective:: Patient is feeling poorly. Instead of traveling to [place] she would much prior to start treatment here and then as she improves consider going to [facility] or staying here to complete treatment. Reason For Visit: RIGHT KNEE PAIN Physical Exam Vital Signs: Temp Pulse Resp BP Pulse Ox 98.5 F 94 18 103/63 97 05/22/19 15:39 05/22/19 15:39 05/22/19 15:39 05/22/19 15:39 05/22/19 15:39 Pulse Oximeter Nocturnal Start: 05/14/19 13:35 Freq: RTQ4 Status: Complete Protocol: Document 05/15/19 07:26 CMI (Rec: 05/15/19 07:27 CMI [id number]) Nocturnal Pulse Oximetry Equipment Usage Equipment Discontinued Continuous SpO2 Machine # 5 Intake & Output 05/21/19 05/22/19 05/23/19 06:59 06:59 06:59 Intake Total 931 830 Output Total 935 490 Balance -4 340 Weight 104.4 kg 104.1 kg General appearance: PRESENT: cooperative, mild distress, well-developed Head exam: PRESENT: atraumatic, normocephalic Respiratory exam: PRESENT: clear to auscultation shivam - On the left, decreased breath sounds - On the right, rales - On the right, symmetrical, unlabored. ABSENT: rhonchi, tachypnea, wheezes Cardiovascular exam: PRESENT: +S1, +S2, tachycardia GI/Abdominal exam: PRESENT: normal bowel sounds, soft. ABSENT: distended, guarding, tenderness Neurological exam: PRESENT: alert, awake, oriented to person, oriented to place, oriented to time, oriented to situation, CN II-XII grossly intact Psychiatric exam: PRESENT: depressed - Patient appears very depressed., flat affect. ABSENT: agitated, anxious Results Laboratory Results: 05/22/19 02:40 05/22/19 02:40 05/22/19 05/22/19 02:40 02:40 WBC 15.6 H RBC 3.15 L Hgb 9.6 L Hct 29.1 L MCV 92 MCH 30.4 MCHC 32.9 RDW 14.0 Plt Count 124 L Sodium 132.9 L Potassium 4.2 Chloride 100 Carbon Dioxide 27 Anion Gap 6 BUN 27 H Creatinine 0.77 Est GFR ( Amer) > 60 Glucose 84 Calcium 10.2 Magnesium 1.5 L 05/20/19 18:18 Sputum Gram Stain - Final 05/20/19 18:18 Sputum Sputum Culture - Final REDUCED NORMAL MCKENZIE 05/08/19 05/15/19 12:26 17:15 Creatine Kinase 70 NT-Pro-B Natriuret Pep 594 H Impressions: Chest CT 05/15/19 18:00 IMPRESSION: Significant right pleural effusion with right lower lobe consolidation. Atelectasis versus pneumonia. Thyroid gland appears to be enlarged. Thyroid Ultrasound 05/16/19 08:00 IMPRESSION: Multinodular goiter as detailed above. Within the left lobe of thyroid gland there is a TR 3 nodule that measures approximately 1.5 cm. Thoracentesis Ultrasound 05/17/19 08:00 IMPRESSION: Successful ultrasound-guided placement of a 10 Prydeinig all-purpose drainage catheter into the fluid-filled right pleural space. Thoracentesis 05/20/19 00:00 IMPRESSION: SUCCESSFUL PLACEMENT OF A RIGHT SIDED CHEST TUBE USING CT GUIDANCE. Chest X-Ray 05/22/19 00:00 IMPRESSION: 1. The right subclavian central venous catheter tip overlies the region of the cavoatrial junction. 2. Right-sided pigtail pleural drainage catheter present. 3. Ongoing volume loss in the right inferior hemithorax. No definite pneumothorax identified. 4. Suspect mild left basilar atelectasis. 5. Expansile process involving the lateral aspect of the right third rib and fracture of the lateral right sixth rib. Assessment and Plan - Diagnosis (1) Malignant pleural effusion Is this a current diagnosis for this admission?: Yes Plan: -Right-sided -S/P thoracentesis on 05/17/2019 with 10 Prydeinig chest tube placed. Has drained about 1.7 L of bloody effusion since placed. Informed by nurse that overnight, only drained 170 cc. -Repeat chest x-ray image reviewed by me this morning and still shows no improvement in the pleural effusion -I have discussed this with the radiologist to see if any adjustments need to be made to the chest tube to achieve more drainage and he will be coming in to evaluate the situation to see if the chest tube needs to be repositioned, declogged or changed to a larger tube. 05/21/2019-the chest tube was eventually exchanged. It put out 625 mL yesterday and 225 mL so far today. Pathology is still pending. The patient does have underlying lung cancer. Continue chest tube for the time being. Hopefully it can be removed soon and the patient stabilized so that she can travel to [place] for treatment of her lung cancer. 05/22/2019-the patient still has significant drainage from the pigtail catheter. Pathology results confirm malignancy. I had a long discussion with the patient and her . Because of the high risk of travel to [place] she has elected to initiate treatment here. After leaving the room I immediately called Dr. Gutierrez and he has reviewed the pathology is going to reach out to [facility] to the oncologist that she was scheduled to see and coordinate care. (2) Acute respiratory failure Qualifiers: Respiratory failure complication: hypoxia and hypercapnia Qualified Code(s): J96.01 - Acute respiratory failure with hypoxia; J96.02 - Acute respiratory failure with hypercapnia Is this a current diagnosis for this admission?: Yes Plan: Resolved. Secondary to lung cancer on large right pleural effusion. Extubated on 05/17/2019. 05/22/2019-now that there is outflow of the effusion her breathing is better. Continue presence of the chest tube until there is an appropriate decrease in drainage for removal. Depending on the progress of treatment the patient may need a Pleurx catheter for significant reaccumulation of fluid. (3) Postobstructive pneumonia Is this a current diagnosis for this admission?: Yes Plan: -In lieu of patient's persistent leukocytosis, cough and reported CT imaging of right lung consolidation, I have opted to start treatment with Levaquin for 7 days for potential postobstructive pneumonia in the right lung. -Send sputum culture 05/21/2019-sputum culture is still pending. Some bacteria and a few leukocytes were noted. Continue antibiotics until causative agent can be identified. 05/22/2019-continue levofloxacin through May 27. (4) Lung cancer Qualifiers: Laterality: right Lung location: lower lobe of lung Qualified Code(s): C34.31 - Malignant neoplasm of lower lobe, right bronchus or lung Is this a current diagnosis for this admission?: Yes Plan: -This is a recent diagnosis. -Patient's plan is to go to [facility] in [place] for treatment of this. Patient already has appointment there. Patient will like to be tuned up enough to be safely discharged and then take a flight to [place] to start treatment for her lung cancer as soon as possible. 05/21/2019-seen this patient is stable enough she will proceed to [place] for treatment. 05/22/2019-as noted above Dr. Gutierrez will initiate treatment and coordinate with oncology at [facility]. The patient is pleased to get treatment underway sooner rather than later. (5) Tachycardia Is this a current diagnosis for this admission?: Yes Plan: -Patient was started on amiodarone 400 mg every 12 hours in the ICU. This was done as a means to address patient's episode of resilient junctional ectopic tac hycardia in the 160s which was aggravated by patient's acute worsening hypoxia. The initial episode was recently ends to synchronized cardioversion x3 and only responded to amiodarone IV bolus. -I consulted cardiology to see if this is adequate therapy for the provoked episode of junctional ectopic tachycardia. -Since then, patient is has been maintaining sinus rhythm but often tachycardic in the low 100s. -Continue with Lopressor -Keep on telemetry 05/21/2019-the metoprolol seems to be effective. The heart rate has been under 100. Continue to monitor on telemetry. 05/22/2019-the majority of her heart rate is less than 100. She still has occasional heart rates above 100 but less than 110. Continue metoprolol. (6) DVT (deep venous thrombosis) Qualifiers: DVT location: lower extremity Affected thrombotic vein of extremity: femoral Chronicity: acute Laterality: right Qualified Code(s): I82.411 - Acute embolism and thrombosis of right femoral vein Is this a current diagnosis for this admission?: Yes Plan: continue Xarelto. 05/21/2019-as above 05/22/2019-continue Xarelto. Monitor for any signs of bleeding especially from the chest tube. (7) Diabetes Qualifiers: Diabetes mellitus type: type 2 Diabetes mellitus complication status: without complication Is this a current diagnosis for this admission?: Yes Plan: Poorly controlled on sliding scale alone. Glimepiride and metformin resumed. 05/21/2019-the patient had significant hypoglycemia today with a glucose of 46. Her appetite has been quite poor. I am going to discontinue her Amaryl at this time. We also changing her diet to improve p.o. intake. We will slowly resume the Amaryl if her sugars rebounded and are too high. 05/22/2019-since the severe hypoglycemic episode we have cut back on the patient's medication. Most of the serum glucoses are less than 150 and none seem to be below 60. Continue current regimen and adjust sliding scale as needed. (8) Hemarthrosis, right knee Is this a current diagnosis for this admission?: Yes Plan: s/p right knee lavage with synovectomy and meniscectomy on 05/10/2019. -Outpatient follow-up with Dr. Jacome 05/22/2019-resolved. Will need to monitor for bleeding while on anticoagulation. (9) Subclinical hyperthyroidism Is this a current diagnosis for this admission?: Yes Plan: -Reviewed TFT -thyroid ultrasound reveals multinodular goiter with largest nodule of about 1.5 cm. -Patient needs outpatient follow-up with an casting molder. Continue with beta-jerica for now. 05/21/2019-if the patient is going to [place] then the most reasonable option would be to set up endocrinology at [facility] where she will be getting treatment for her lung cancer. 05/22/2019-now that the patient is not going to [place] consider outpatient endocrinology consult. (10) Reactive depression Is this a current diagnosis for this admission?: Yes Plan: 05/21/2019-patient's affect and demeanor certainly suggest depression. I believe she is overwhelmed with the news of the malignancy. I did specifically ask her if she felt depressed and she denied this. I will continue to work with the patient as I think an antidepressant would help her get through the tough road ahead. 05/22/2019-I again discussed depression this time with the present. I asked the patient to seriously consider letting her start antidepressant medication. (11) Diarrhea Qualifiers: Diarrhea type: unspecified type Qualified Code(s): R19.7 - Diarrhea, unspecified Is this a current diagnosis for this admission?: Yes Plan: 05/21/2019-the patient has been having diarrhea. It was foul-smelling. C. difficile testing was negative. It certainly could be the MiraLAX or other agent. I have change the MiraLAX to as needed and patient will have Lomotil available if needed. 05/22/2019-bowels are improved by stopping stool softeners. - Time Time Spent with patient: 15-24 minutes Medications reviewed and adjusted accordingly: Yes
[2019-05-22] MEDS ORDERED: MAGNESIUM SULFATE/D5W 1 GM/100 ML RTUPB IV ONE (21:02)
[2019-05-23] MEDS: MORPHINE SULFATE 10 MG/ML INJ IV PRN ×4 (01:54→20:24)
[2019-05-23 05:23] LABS: HEMATOCRIT 28.5 % (36.0-47.0); HEMOGLOBIN 9.4 g/dL (12.0-15.5); MEAN CORPUSCULAR VOLUME 91 fl (80-97); PLATELET COUNT 112 10^3/uL (150-450); RED BLOOD COUNT 3.14 10^6/uL (3.72-5.28); RED CELL DISTRIBUTION WIDTH 14.1 % (11.5-14.0); WHITE BLOOD COUNT 13.9 10^3/uL (4.0-10.5)
[2019-05-23 05:45] LABS: ABSOLUTE LYMPHOCYTES# (MANUAL) 3.8 10^3/uL (0.5-4.7); ABSOLUTE MONOCYTES # (MANUAL) 1.5 10^3/uL (0.1-1.4); BASOPHILS % (MANUAL) 2 % (0-2); EOSINOPHILS % (MANUAL) 2 % (0-6); LYMPHOCYTES % (MANUAL) 25 % (13-45); METAMYELOCYTES % (MANUAL) 1 % (0-1); MONOCYTES % (MANUAL) 11 % (3-13); SEGMENTED NEUTROPHILS % (MAN) 57 % (42-78); TOTAL CELLS COUNTED 100
[2019-05-23 05:46] LABS: ANISOCYTOSIS SLIGHT; PLATELET COMMENT DECREASED; POLYCHROMASIA 2+
[2019-05-23 05:52] LABS: ANION GAP 5 (5-19); BLOOD UREA NITROGEN 19 mg/dL (7-20); CALCIUM 10.3 mg/dL (8.4-10.2); CARBON DIOXIDE 28 mmol/L (22-30); CHLORIDE 98 mmol/L (98-107); GLUCOSE 135 mg/dL (75-110); POTASSIUM 4.3 mmol/L (3.6-5.0)
[2019-05-23] MEDS: INSULIN LISPRO 100 UNIT/ML 3 ML VIAL SUBCUT SCH ×4 (07:59→22:28)
--- NOTE | 2019-05-23 08:32 | PDOC PROGRESS REPORT ---
Subjective Progress Note for:: 05/23/19 Subjective:: Patient seems to be doing a little bit better today, she feels that her right leg is weak but the pain seems to be better. Discussed with nursing and there was about 350 mL out over 24 hours so the output has decreased considerably. Reason For Visit: RIGHT KNEE PAIN Physical Exam Vital Signs: Temp Pulse Resp BP Pulse Ox 98.1 F 90 16 114/69 94 05/23/19 07:43 05/23/19 07:43 05/23/19 07:43 05/23/19 07:43 05/23/19 07:43 Pulse Oximeter Nocturnal Start: 05/14/19 13:35 Freq: RTQ4 Status: Complete Protocol: Document 05/15/19 07:26 CMI (Rec: 05/15/19 07:27 CMI [id number]) Nocturnal Pulse Oximetry Equipment Usage Equipment Discontinued Continuous SpO2 Machine # 5 Intake & Output 05/22/19 05/23/19 05/24/19 06:59 06:59 06:59 Intake Total 830 740 Output Total 490 740 325 Balance 340 0 -325 Weight 104.1 kg 105 kg General appearance: PRESENT: no acute distress, well-developed, well-nourished Head exam: PRESENT: atraumatic, normocephalic Eye exam: PRESENT: conjunctiva pink, EOMI, PERRLA. ABSENT: scleral icterus Ear exam: PRESENT: normal external ear exam Mouth exam: PRESENT: moist, tongue midline Neck exam: ABSENT: carotid bruit, JVD, lymphadenopathy, thyromegaly Respiratory exam: PRESENT: clear to auscultation shivam. ABSENT: rales, rhonchi, wheezes Cardiovascular exam: PRESENT: RRR. ABSENT: diastolic murmur, rubs, systolic murmur Pulses: PRESENT: normal dorsalis pedis pul Vascular exam: PRESENT: normal capillary refill GI/Abdominal exam: PRESENT: normal bowel sounds, soft. ABSENT: distended, gu arding, mass, organolmegaly, rebound, tenderness Rectal exam: PRESENT: deferred Extremities exam: PRESENT: full ROM. ABSENT: calf tenderness, clubbing, pedal edema Neurological exam: PRESENT: alert, awake, oriented to person, oriented to place, oriented to time, oriented to situation, CN II-XII grossly intact. ABSENT: mot or sensory deficit Psychiatric exam: PRESENT: appropriate affect, normal mood. ABSENT: homicidal ideation, suicidal ideation Skin exam: PRESENT: dry, intact, warm. ABSENT: cyanosis, rash Results Laboratory Results: 05/23/19 04:34 05/23/19 04:34 05/23/19 05/23/19 04:34 04:34 WBC 13.9 H RBC 3.14 L Hgb 9.4 L Hct 28.5 L MCV 91 MCH 30.0 MCHC 33.0 RDW 14.1 H Plt Count 112 L Seg Neutrophils % Not Reportable Sodium 131.0 L Potassium 4.3 Chloride 98 Carbon Dioxide 28 Anion Gap 5 BUN 19 Creatinine 1.02 Est GFR ( Amer) > 60 Glucose 135 H Calcium 10.3 H Magnesium 1.7 05/20/19 18:18 Sputum Gram Stain - Final 05/20/19 18:18 Sputum Sputum Culture - Final REDUCED NORMAL MCKENZIE 05/08/19 05/15/19 12:26 17:15 Creatine Kinase 70 NT-Pro-B Natriuret Pep 594 H Impressions: Chest CT 05/15/19 18:00 IMPRESSION: Significant right pleural effusion with right lower lobe consolidation. Atelectasis versus pneumonia. Thyroid gland appears to be enlarged. Thyroid Ultrasound 05/16/19 08:00 IMPRESSION: Multinodular goiter as detailed above. Within the left lobe of thyroid gland there is a TR 3 nodule that measures approximately 1.5 cm. Thoracentesis Ultrasound 05/17/19 08:00 IMPRESSION: Successful ultrasound-guided placement of a 10 [place] all-purpose drainage catheter into the fluid-filled right pleural space. Thoracentesis 05/20/19 00:00 IMPRESSION: SUCCESSFUL PLACEMENT OF A RIGHT SIDED CHEST TUBE USING CT GUIDANCE. Chest X-Ray 05/22/19 00:00 IMPRESSION: 1. The right subclavian central venous catheter tip overlies the region of the cavoatrial junction. 2. Right-sided pigtail pleural drainage catheter present. 3. Ongoing volume loss in the right inferior hemithorax. No definite pneumothorax identified. 4. Suspect mild left basilar atelectasis. 5. Expansile process involving the lateral aspect of the right third rib and fracture of the lateral right sixth rib. Assessment & Plan - Diagnosis (1) Malignant pleural effusion Is this a current diagnosis for this admission?: Yes Plan: Seems to be reducing in output, hopefully it may be possible to actually remove the chest tube if the outflow is lower. 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 I will call her oncologist who is going to take over her care in [place]. And we will decide on an oral medication for her to start. (3) Effusion, right knee Is this a current diagnosis for this admission?: Yes Plan: Improving. - Time Time Spent with patient: 35 or more minutes
[2019-05-23] MEDS: AMIODARONE HCL 200 MG TABLET PO SCH (09:24)
[2019-05-23] MEDS: FAMOTIDINE 20 MG TABLET PO SCH ×2 (09:24→22:00)
[2019-05-23] MEDS: LEVOFLOXACIN 750 MG/D5W RTU 750 MG/150 ML RTUPB IV SCH (09:24)
[2019-05-23] MEDS: RIVAROXABAN 10 MG TABLET PO SCH (09:24)
[2019-05-23] MEDS: METOPROLOL TARTRATE 25 MG TABLET PO SCH (09:25)
[2019-05-23] MEDS: FUROSEMIDE INJ/PF 20 MG/2 ML SDV IV SCH (09:25)
[2019-05-23] MEDS: LISINOPRIL 10 MG TABLET PO SCH (09:25)
[2019-05-23] MEDS ORDERED: MAGNESIUM OXIDE 400 MG TABLET PO SCH (10:00)
[2019-05-23] MEDS: ACETAMINOPHEN 325 MG TABLET PO PRN (13:33)
[2019-05-23] MEDS: DEXTROSE 10%-WATER 1,000 ML IV PRN (13:33)
[2019-05-23] MEDS: OXYCODONE HCL IR 5 MG TABLET PO PRN (13:34)
[2019-05-23] MEDS: CELECOXIB 200 MG CAPSULE PO SCH ×2 (14:26→22:00)
[2019-05-23] MEDS: MAGNESIUM OXIDE 400 MG TABLET PO SCH (17:03)
--- NOTE | 2019-05-23 19:49 | PDOC PROGRESS REPORT ---
Subjective Progress Note for:: 05/23/19 Subjective:: The patient is a 64-year-old female with past medical history of hypertension, DM 2, obesity, lung cancer, and arthritis who was admitted to the orthopedic service. Hospitalist service consulted for tachycardia, SOLEDAD, medication management and subsequently developed acute respiratory failure w/ hypoxia and an accelerated junctional rhythm nonresponsive to adenosine x3 and cardioversion (100, 150, 200J). Ultimately, rate control achieved via amiodarone. Found to have large right sided pleural effusion now s/p chest tube placement. Patient was seen on morning rounds with her present. She is found resting in bed comfortably on room air. She is awake and ANO x4; does not make eye contact with me today affect, delayed responses, and overall depressed disposition. Per nursing, she was more engaged earlier today. She did just finished working with physical therapy and was able to stand and take a few steps for the first time today. She does deny fever, chills, dyspnea, orthopnea, abdominal pain, nausea vomiting or diarrhea. Her and her are understandably concerned about starting chemotherapy treatment as soon as possible. Did discuss with patient and importance of working with physical therapy to increase ambulation so that the patient can be safely discharged home has any discharge to SNF would require a pause in her chemotherapy treatments. They have no other questions or concerns at this time. No concerns per nursing. Reason For Visit: RIGHT KNEE PAIN Physical Exam Vital Signs: Temp Pulse Resp BP Pulse Ox 98.3 F 92 17 107/51 L 95 05/23/19 19:15 05/23/19 19:15 05/23/19 19:15 05/23/19 19:15 05/23/19 19:15 Pulse Oximeter Nocturnal Start: 05/14/19 13:35 Freq: RTQ4 Status: Complete Protocol: Document 05/15/19 07:26 CMI (Rec: 05/15/19 07:27 CMI [id number]) Nocturnal Pulse Oximetry Equipment Usage Equipment Discontinued Continuous SpO2 Machine # 5 Intake & Output 05/22/19 05/23/19 05/24/19 06:59 06:59 06:59 Intake Total 830 740 650 Output Total 477 394 3989 Balance 340 0 -1145 Weight 104.1 kg 105 kg 105 kg General appearance: PRESENT: no acute distress, cooperative, obese, well- developed, well-nourished Head exam: PRESENT: atraumatic, normocephalic Eye exam: PRESENT: conjunctiva pink, EOMI, PERRLA. ABSENT: scleral icterus Ear exam: PRESENT: normal external ear exam Mouth exam: PRESENT: moist, tongue midline Respiratory exam: PRESENT: chest wall tenderness - Chest tube insertion site, decreased breath sounds - Right> Left, rhonchi - Occasional, symmetrical, unlabored. ABSENT: rales, wheezes Cardiovascular exam: PRESENT: RRR, +S1, +S2. ABSENT: diastolic murmur, rubs, systolic murmur Vascular exam: PRESENT: normal capillary refill GI/Abdominal exam: PRESENT: normal bowel sounds, soft. ABSENT: distended, guarding, mass, organolmegaly, rebound, tenderness Rectal exam: PRESENT: deferred Extremities exam: PRESENT: full ROM. ABSENT: calf tenderness, clubbing, pedal edema Neurological exam: PRESENT: alert, awake, oriented to person, oriented to place, oriented to time, oriented to situation, CN II-XII grossly intact. ABSENT: motor sensory deficit Psychiatric exam: PRESENT: depressed, flat affect. ABSENT: homicidal ideation, suicidal ideation Skin exam: PRESENT: dry, intact, warm. ABSENT: cyanosis, rash Results Laboratory Results: 05/23/19 04:34 05/23/19 04:34 05/23/19 05/23/19 04:34 04:34 WBC 13.9 H RBC 3.14 L Hgb 9.4 L Hct 28.5 L MCV 91 MCH 30.0 MCHC 33.0 RDW 14.1 H Plt Count 112 L Seg Neutrophils % Not Reportable Sodium 131.0 L Potassium 4.3 Chloride 98 Carbon Dioxide 28 Anion Gap 5 BUN 19 Creatinine 1.02 Est GFR ( Amer) > 60 Glucose 135 H Calcium 10.3 H Magnesium 1.7 05/08/19 05/15/19 12:26 17:15 Creatine Kinase 70 NT-Pro-B Natriuret Pep 594 H Impressions: Chest CT 05/15/19 18:00 IMPRESSION: Significant right pleural effusion with right lower lobe consolidation. Atelectasis versus pneumonia. Thyroid gland appears to be enlarged. Thyroid Ultrasound 05/16/19 08:00 IMPRESSION: Multinodular goiter as detailed above. Within the left lobe of thyroid gland there is a TR 3 nodule that measures approximately 1.5 cm. Thoracentesis Ultrasound 05/17/19 08:00 IMPRESSION: Successful ultrasound-guided placement of a 10 Spanish all-purpose drainage catheter into the fluid-filled right pleural space. Thoracentesis 05/20/19 00:00 IMPRESSION: SUCCESSFUL PLACEMENT OF A RIGHT SIDED CHEST TUBE USING CT GUIDANCE. Chest X-Ray 05/22/19 00:00 IMPRESSION: 1. The right subclavian central venous catheter tip overlies the region of the cavoatrial junction. 2. Right-sided pigtail pleural drainage catheter present. 3. Ongoing volume loss in the right inferior hemithorax. No definite pneumothorax identified. 4. Suspect mild left basilar atelectasis. 5. Expansile process involving the lateral aspect of the right third rib and fracture of the lateral right sixth rib. Assessment and Plan - Diagnosis (1) Tachycardia Is this a current diagnosis for this admission?: Yes Plan: -Patient was started on amiodarone 400 mg every 12 hours in the ICU. This was done as a means to address patient's episode of resilient junctional ectopic tachycardia in the 160s which was aggravated by patient's acute worsening hy poxia. The initial episode was recently ends to synchronized cardioversion x3 and only responded to amiodarone IV bolus. Discussed with Dr. Calderón today. We will discontinue amiodarone. Transition metoprolol to Toprol-XL. Continue lisinopril. Continue to monitor on telemetry. Limited echocardiogram scheduled for the end of the week to evaluate for cardiomyopathy. (2) Diabetes Qualifiers: Diabetes mellitus type: type 2 Diabetes mellitus complication status: without complication Is this a current diagnosis for this admission?: Yes Plan: Poorly controlled on sliding scale alone. Labile blood sugars. Frequent episodes of hypoglycemia; glyburide and metformin on hold. A1c with a.m. lab work. Accu-Cheks before meals and at bedtime with sliding scale insulin. Consistent carb diet. Registered dietitian and museum educator consulted. (3) HTN (hypertension) Is this a current diagnosis for this admission?: Yes Plan: Normotensive at present. Continue lisinopril, Toprol-XL, and furosemide. (4) Lung cancer Qualifiers: Laterality: right Lung location: lower lobe of lung Qualified Code(s): C34.31 - Malignant neoplasm of lower lobe, right bronchus or lung Is this a current diagnosis for this admission?: Yes Plan: Oncology is consulted; primary management per Dr. Gutierrez. (5) Malignant pleural effusion Is this a current diagnosis for this admission?: Yes Plan: -Right-sided -S/P thoracentesis on 05/17/2019 with 10 Spanish chest tube placed. The chest tube was eventually exchanged with improved output. Now gradual decrease noted. Pathology results confirm malignancy. Dr. Gutierrez is consulted; plans to start chemotherapy here. Prior plans to travel to [place] are now on hold indefinitely. (6) Postobstructive pneumonia Is this a current diagnosis for this admission?: Yes Plan: In lieu of patient's persistent leukocytosis, cough and reported CT imaging of right lung consolidation, have opted to start treatment with Levaquin for 7 days for potential postobstructive pneumonia in the right lung. Blood cultures are negative. Sputum culture shows reduced normal ninoska Continue levofloxacin through May 27. (7) Reactive depression Is this a current diagnosis for this admission?: Yes Plan: The patient's affect and demeanor continue to suggest depression. Patient would not make eye contact with me and spoke with slow responses, flat affect, and minimal engagement in conversation. Discussed with patient has been recommendations for starting antidepressant; patient declines at this time. The patient indicated that he was interested in discussing this further with his and let us know if she changes her mind. (8) Subclinical hyperthyroidism Is this a current diagnosis for this admission?: Yes Plan: Thyroid ultrasound reveals multinodular goiter with largest nodule of about 1.5 cm. -Patient needs outpatient follow-up with an cardroom hand. Continue with beta-jerica for now. (9) Hemarthrosis, right knee Is this a current diagnosis for this admission?: Yes Plan: s/p right knee lavage with synovectomy and meniscectomy on 05/10/2019. -Outpatient follow-up with Dr. Jacome (10) Acute respiratory failure Qualifiers: Respiratory failure complication: hypoxia and hypercapnia Qualified Code(s): J96.01 - Acute respiratory failure with hypoxia; J96.02 - Acute respiratory failure with hypercapnia Is this a current diagnosis for this admission?: Yes Plan: Resolved. Secondary to lung cancer on large right pleural effusion. Extubated on 05/17/2019. Now maintaining oxygen saturations on room air. (11) DVT (deep venous thrombosis) Qualifiers: DVT location: lower extremity Affected thrombotic vein of extremity: femoral Chronicity: acute Laterality: right Qualified Code(s): I82.411 - Acute embolism and thrombosis of right femoral vein Is this a current diagnosis for this admission?: Yes Plan: continue Xarelto. (12) SOLEDAD (acute kidney injury) Is this a current diagnosis for this admission?: Yes Plan: Resolved. Likely prerenal secondary to poor p.o. fluid intake, hypotension, (losartan, metformin, gabapentin) Encourage p.o. fluids. Avoid nephrotoxic medications as able. Monitor daily chemistries. (13) Lung mass Is this a current diagnosis for this admission?: Yes Plan: As in #[address] Gutierrez as an outpatient. (14) Fever Is this a current diagnosis for this admission?: Yes Plan: Resolved
[2019-05-23] MEDS: METOPROLOL SUCCINATE 25 MG TAB.SR.24H PO SCH (21:59)
[2019-05-23] MEDS: GABAPENTIN 300 MG CAPSULE PO SCH (21:59)
[2019-05-24 05:45] LABS: HEMOGLOBIN 8.8 g/dL (12.0-15.5); MEAN CORPUSCULAR HEMOGLOBIN 30.6 pg (27.0-33.4); MEAN CORPUSCULAR HGB CONC 33.9 g/dL (32.0-36.0); MEAN CORPUSCULAR VOLUME 90 fl (80-97); PLATELET COUNT 103 10^3/uL (150-450); RED BLOOD COUNT 2.89 10^6/uL (3.72-5.28); WHITE BLOOD COUNT 11.6 10^3/uL (4.0-10.5)
[2019-05-24 06:01] LABS: BLOOD UREA NITROGEN 18 mg/dL (7-20); CALCIUM 10.8 mg/dL (8.4-10.2); CARBON DIOXIDE 29 mmol/L (22-30); CHLORIDE 98 mmol/L (98-107); GLUCOSE 179 mg/dL (75-110); POTASSIUM 4.3 mmol/L (3.6-5.0)
[2019-05-24 06:07] LABS: ANION GAP 4 (5-19)
[2019-05-24] MEDS: INSULIN LISPRO 100 UNIT/ML 3 ML VIAL SUBCUT SCH ×2 (08:00→12:13)
[2019-05-24] MEDS: MAGNESIUM OXIDE 400 MG TABLET PO SCH ×2 (08:10→16:55)
[2019-05-24] MEDS: DEXTROSE 10%-WATER 1,000 ML IV PRN (08:14)
--- NOTE | 2019-05-24 08:34 | PDOC PROGRESS REPORT ---
Subjective Progress Note for:: 05/24/19 Subjective:: Patient was able to stand yesterday and walk a few steps. There was pain but it is better. Discussed with nursing about output, and over 24 hours it was estimated about 150 cc output via chest tube. Reason For Visit: RIGHT KNEE PAIN Physical Exam Vital Signs: Temp Pulse Resp BP Pulse Ox 97.3 F 91 20 99/43 L 97 05/24/19 03:25 05/24/19 03:25 05/24/19 03:25 05/24/19 04:00 05/24/19 05:21 Pulse Oximeter Nocturnal Start: 05/14/19 13:35 Freq: RTQ4 Status: Complete Protocol: Document 05/15/19 07:26 CMI (Rec: 05/15/19 07:27 CMI [id number]) Nocturnal Pulse Oximetry Equipment Usage Equipment Discontinued Continuous SpO2 Machine # 5 Intake & Output 05/23/19 05/24/19 05/25/19 06:59 06:59 06:59 Intake Total 740 650 Output Total 740 2745 80 Balance 0 -5 -80 Weight 105 kg 95.9 kg General appearance: PRESENT: no acute distress, well-developed, well-nourished Head exam: PRESENT: atraumatic, normocephalic Eye exam: PRESENT: conjunctiva pink, EOMI, PERRLA. ABSENT: scleral icterus Ear exam: PRESENT: normal external ear exam Mouth exam: PRESENT: moist, tongue midline Neck exam: ABSENT: carotid bruit, JVD, lymphadenopathy, thyromegaly Respiratory exam: PRESENT: clear to auscultation shivam. ABSENT: rales, rhonchi, wheezes Cardiovascular exam: PRESENT: RRR. ABSENT: diastolic murmur, rubs, systolic murmur Pulses: PRESENT: normal dorsalis pedis pul Vascular exam: PRESENT: normal capillary refill GI/Abdominal exam: PRESENT: normal bowel sounds, soft. ABSENT: distended, guarding, mass, organolmegaly, rebound, tenderness Rectal exam: PRESENT: deferred Extremities exam: PRESENT: full ROM. ABSENT: calf tenderness, clubbing, pedal edema Neurological exam: PRESENT: alert, awake, oriented to person, oriented to place, oriented to time, oriented to situation, CN II-XII grossly intact. ABSENT: motor sensory deficit Psychiatric exam: PRESENT: appropriate affect, normal mood. ABSENT: homicidal ideation, suicidal ideation Skin exam: PRESENT: dry, intact, warm. ABSENT: cyanosis, rash Results Laboratory Results: 05/24/19 05:15 05/24/19 05:15 05/24/19 05/24/19 05:15 05:15 WBC 11.6 H RBC 2.89 L Hgb 8.8 L Hct 26.0 L MCV 90 MCH 30.6 MCHC 33.9 RDW 14.0 Plt Count 103 L Sodium 131.1 L Potassium 4.3 Chloride 98 Carbon Dioxide 29 Anion Gap 4 L BUN 18 Creatinine 0.95 Est GFR ( Amer) > 60 Glucose 179 H Calcium 10.8 H 05/08/19 05/15/19 12:26 17:15 Creatine Kinase 70 NT-Pro-B Natriuret Pep 594 H Impressions: Chest CT 05/15/19 18:00 IMPRESSION: Significant right pleural effusion with right lower lobe consolidation. Atelectasis versus pneumonia. Thyroid gland appears to be enlarged. Thyroid Ultrasound 05/16/19 08:00 IMPRESSION: Multinodular goiter as detailed above. Within the left lobe of thyroid gland there is a TR 3 nodule that measures approximately 1.5 cm. Thoracentesis Ultrasound 05/17/19 08:00 IMPRESSION: Successful ultrasound-guided placement of a 10 [place] all-purpose drainage catheter into the fluid-filled right pleural space. Thoracentesis 05/20/19 00:00 IMPRESSION: SUCCESSFUL PLACEMENT OF A RIGHT SIDED CHEST TUBE USING CT GUIDANCE. Chest X-Ray 05/22/19 00:00 IMPRESSION: 1. The right subclavian central venous catheter tip overlies the region of the cavoatrial junction. 2. Right-sided pigtail pleural drainage catheter present. 3. Ongoing volume loss in the right inferior hemithorax. No definite pneumothorax identified. 4. Suspect mild left basilar atelectasis. 5. Expansile process involving the lateral aspect of the right third rib and fracture of the lateral right sixth rib. Assessment & Plan - Diagnosis (1) Malignant pleural effusion Is this a current diagnosis for this admission?: Yes Plan: Improving, asked nursing to discuss with surgery about appropriate time for chest tube removal. (2) Lung cancer Qualifiers: Laterality: right Lung location: lower lobe of lung Qualified Code(s): C34.31 - Malignant neoplasm of lower lobe, right bronchus or lung Is this a current diagnosis for this admission?: Yes Plan: We will start patient on the oral medication Tagrisso, went over the risks and benefits today of this, she agrees to go forward with therapy. We will need to order it through specialty pharmacy and it will be delivered to her home hopefully within the next 3 to 5 days. (3) Effusion, right knee Is this a current diagnosis for this admission?: Yes Plan: Improving, continue to work with physical therapy. - Time Time Spent with patient: 35 or more minutes
[2019-05-24] MEDS: MORPHINE SULFATE 10 MG/ML INJ IV PRN ×4 (09:22→20:15)
[2019-05-24] MEDS: GABAPENTIN 300 MG CAPSULE PO SCH ×3 (09:29→21:40)
[2019-05-24] MEDS ORDERED: FUROSEMIDE 40 MG TABLET PO SCH (10:00)
[2019-05-24] MEDS: OXYCODONE HCL IR 5 MG TABLET PO PRN (10:14)
[2019-05-24] MEDS: METOPROLOL SUCCINATE 25 MG TAB.SR.24H PO SCH ×2 (10:19→21:40)
[2019-05-24] MEDS: RIVAROXABAN 10 MG TABLET PO SCH (10:20)
[2019-05-24] MEDS: CELECOXIB 200 MG CAPSULE PO SCH ×2 (10:24→21:40)
[2019-05-24] MEDS: FAMOTIDINE 20 MG TABLET PO SCH ×2 (10:24→21:40)
[2019-05-24] MEDS: LEVOFLOXACIN 750 MG TABLET PO SCH (10:24)
[2019-05-24] MEDS: LISINOPRIL 10 MG TABLET PO SCH (10:59)
--- NOTE | 2019-05-24 14:07 | RADIOLOGY REPORT (SQ) ---
EXAM DESCRIPTION: CHEST SINGLE VIEW COMPLETED DATE/TIME: 05/24/2019 1:28 pm REASON FOR STUDY: portable. Malignant pleural effusion COMPARISON: None. EXAM PARAMETERS: NUMBER OF VIEWS: One view. TECHNIQUE: Single frontal radiographic view of the chest acquired. RADIATION DOSE: NA LIMITATIONS: None. FINDINGS: LUNGS AND PLEURA: Unchanged consolidative opacity in the right base associated with volume loss. MEDIASTINUM AND HILAR STRUCTURES: Stable mediastinal and hilar contours. HEART AND VASCULAR STRUCTURES: Unchanged cardiomegaly. BONES: Osteolytic lesion in the right posterolateral 3rd rib. HARDWARE: The tip of the right subclavian vein approach central venous catheter projects within the S VC. There is a pigtail pleural drainage catheter in place that projects within the right pleural spa ce. OTHER: No other finding. IMPRESSION: Unchanged radiographic appearance of the chest. TECHNICAL DOCUMENTATION: JOB ID: [id number] [employer]- All Rights Reserved Reading location - IP/workstation name: [email or web address]
[2019-05-24] MEDS ORDERED: OXYCODONE HCL IR 5 MG TABLET PO PRN (15:25)
[2019-05-24] MEDS: DEXTROSE 5%-NORMAL SALINE 1,000 ML IV PRN (15:46)
--- NOTE | 2019-05-24 18:16 | PDOC PROGRESS REPORT ---
Subjective Progress Note for:: 05/24/19 Subjective:: The patient is a 64-year-old female with past medical history of hypertension, DM 2, obesity, lung cancer, and arthritis who was admitted to the orthopedic service. Hospitalist service consulted for tachycardia, SOLEDAD, medication management and subsequently developed acute respiratory failure w/ hypoxia and an accelerated junctional rhythm nonresponsive to adenosine x3 and cardioversion (100, 150, 200J). Ultimately, rate control achieved via amiodarone. Found to have large right sided pleural effusion now s/p chest tube placement. Patient was seen on afternoon rounds with her present. She is found resting in bed comfortably on room air. She is awake and A&O x4. Much more engaged with me today; makes eye contact, smiles and laughs, talks about future goal planning. She is understandably frustrated with her prolonged admission and perceived delay in starting chemotherapy due to not being able to move to [place] as previously was planned. However, she expresses gratefulness that her acute respiratory failure and tachycardia occurred while she was in a hospital setting where she could be here to quickly. She is looking forward to hearing from Dr. Duarte regarding plan for chest tube. She does have significant bilateral lower extremity discomfort today; described as burning. She reports that upon standing today, she felt such an intense sensation in her feet that she was unable to participate further with physical therapy. She believes this may partially be neuropathy related to her gabapentin being placed on hold and/or sciatica pain. Otherwise, she denies fever, chills, chest pain, dyspnea, abdominal pain, nausea vomiting or diarrhea. She also reports return of her appetite this afternoon; 8 100% of her lunch. They have no other questions or concerns at this time. No concerns per nursing. Reason For Visit: RIGHT KNEE PAIN Physical Exam Vital Signs: Temp Pulse Resp BP Pulse Ox 97.7 F 90 16 110/54 L 97 05/24/19 12:20 05/24/19 14:00 05/24/19 12:20 05/24/19 12:20 05/24/19 12:20 Pulse Oximeter Nocturnal Start: 05/14/19 13:35 Freq: RTQ4 Status: Complete Protocol: Document 05/15/19 07:26 CMI (Rec: 05/15/19 07:27 CMI [id number]) Nocturnal Pulse Oximetry Equipment Usage Equipment Discontinued Continuous SpO2 Machine # 5 Intake & Output 05/23/19 05/24/19 05/25/19 06:59 06:59 06:59 Intake Total 740 650 720 Output Total 740 2779 780 Balance 0 -60 Weight 105 kg 95.9 kg General appearance: PRESENT: no acute distress, cooperative, obese, well- developed, well-nourished Head exam: PRESENT: atraumatic, normocephalic Eye exam: PRESENT: conjunctiva pink, EOMI, PERRLA. ABSENT: scleral icterus Ear exam: PRESENT: normal external ear exam Mouth exam: PRESENT: moist, tongue midline Respiratory exam: PRESENT: chest wall tenderness - At chest tube insertion site; decreased fluid output today., decreased breath sounds - Right, symmetrical, unlabored. ABSENT: rales, rhonchi, wheezes Cardiovascular exam: PRESENT: RRR, +S1, +S2. ABSENT: diastolic murmur, rubs, systolic murmur Pulses: PRESENT: normal dorsalis pedis pul Vascular exam: PRESENT: normal capillary refill GI/Abdominal exam: PRESENT: normal bowel sounds, soft. ABSENT: distended, guarding, mass, organolmegaly, rebound, tenderness Rectal exam: PRESENT: deferred Extremities exam: PRESENT: full ROM, tenderness - Bilateral lower extremities. ABSENT: calf tenderness, clubbing, pedal edema Neurological exam: PRESENT: alert, awake, oriented to person, oriented to place, oriented to time, oriented to situation, CN II-XII grossly intact. ABSENT: motor sensory deficit Psychiatric exam: PRESENT: appropriate affect, normal mood - Improved mood today. ABSENT: homicidal ideation, suicidal ideation Skin exam: PRESENT: dry, intact, warm. ABSENT: cyanosis, rash Results Laboratory Results: 05/24/19 05:15 05/24/19 05:15 05/24/19 05/24/19 05:15 05:15 WBC 11.6 H RBC 2.89 L Hgb 8.8 L Hct 26.0 L MCV 90 MCH 30.6 MCHC 33.9 RDW 14.0 Plt Count 103 L Sodium 131.1 L Potassium 4.3 Chloride 98 Carbon Dioxide 29 Anion Gap 4 L BUN 18 Creatinine 0.95 Est GFR ( Amer) > 60 Glucose 179 H Calcium 10.8 H 05/08/19 05/15/19 12:26 17:15 Creatine Kinase 70 NT-Pro-B Natriuret Pep 594 H Impressions: Chest CT 05/15/19 18:00 IMPRESSION: Significant right pleural effusion with right lower lobe consolidation. Atelectasis versus pneumonia. Thyroid gland appears to be enlarged. Thyroid Ultrasound 05/16/19 08:00 IMPRESSION: Multinodular goiter as detailed above. Within the left lobe of thyroid gland there is a TR 3 nodule that measures approximately 1.5 cm. Thoracentesis Ultrasound 05/17/19 08:00 IMPRESSION: Successful ultrasound-guided placement of a 10 Faroese all-purpose drainage catheter into the fluid-filled right pleural space. Thoracentesis 05/20/19 00:00 IMPRESSION: SUCCESSFUL PLACEMENT OF A RIGHT SIDED CHEST TUBE USING CT GUIDANCE. Chest X-Ray 05/24/19 00:00 IMPRESSION: Unchanged radiographic appearance of the chest. Assessment and Plan - Diagnosis (1) Malignant pleural effusion Is this a current diagnosis for this admission?: Yes Plan: -Right-sided -S/P thoracentesis on 05/17/2019 with 10 Faroese chest tube placed. The chest tube was eventually exchanged with improved output. Now gradual decrease noted. Pathology results confirm malignancy. Dr. Gutierrez is consulted; plans to start chemotherapy here. Prior plans to travel to [place] are now on hold indefinitely. Spoke with Dr. Duarte today; unfortunately the patient's multiple chest tubes with malignant pleural effusion complicates his ability to transition to Pleurx catheter. He is exploring with pharmacy staff option for chemical pleurodesis. Unfortunately, may require transfer to tertiary care center. May continue Xarelto per Dr. Cm. (2) Tachycardia Is this a current diagnosis for this admission?: Yes Plan: Resolved. -Patient was started on amiodarone 400 mg every 12 hours in the ICU. This was done as a means to address patient's episode of resilient junctional ectopic tachycardia in the 160s which was aggravated by patient's acute worsening hypoxia. The initial episode was recently ends to synchronized cardioversion x3 and only responded to amiodarone IV bolus. Discussed with Dr. Talavera yesterday We will discontinue amiodarone. Continue Toprol-XL. Continue lisinopril. Continue to monitor on telemetry. Limited echocardiogram scheduled for the end of the week to evaluate for cardiomyopathy. (3) Diabetes Qualifiers: Diabetes mellitus type: type 2 Diabetes mellitus complication status: without complication Is this a current diagnosis for this admission?: Yes Plan: A1c 6.9% Poorly controlled on sliding scale alone. Labile blood sugars. Frequent episodes of hypoglycemia; glyburide and metformin on hold. Patient reports improved appetite today. Will discontinue D10W and start D5 NS at 75 mg/hr . Accu-Cheks before meals and at bedtime with sliding scale insulin. Consistent carb diet. Registered dietitian and perinatal educator consulted. (4) HTN (hypertension) Is this a current diagnosis for this admission?: Yes Plan: Low blood pressures today at present. Continue Toprol-XL Have decreased lisinopril and and furosemide. (5) Lung cancer Qualifiers: Laterality: right Lung location: lower lobe of lung Qualified Code(s): C34.31 - Malignant neoplasm of lower lobe, right bronchus or lung Is this a current diagnosis for this admission?: Yes Plan: Oncology is consulted; primary management per Dr. Gutierrez. (6) Postobstructive pneumonia Is this a current diagnosis for this admission?: Yes Plan: In lieu of patient's persistent leukocytosis, cough and reported CT imaging of right lung consolidation, have opted to start treatment with Levaquin for 7 days for potential postobstructive pneumonia in the right lung. Blood cultures are negative. Sputum culture shows reduced normal ninoska Continue levofloxacin through May 27. (7) Reactive depression Is this a current diagnosis for this admission?: Yes Plan: Improved mood today. Interacting well with family, hospital staff members and myself. Patient is encouraged to continue consideration of starting antidepressant. (8) Subclinical hyperthyroidism Is this a current diagnosis for this admission?: Yes Plan: Thyroid ultrasound reveals multinodular goiter with largest nodule of about 1.5 cm. -Patient needs outpatient follow-up with an loan funder. Continue with beta-jerica for now. (9) Hemarthrosis, right knee Is this a current diagnosis for this admission?: Yes Plan: s/p right knee lavage with synovectomy and meniscectomy on 05/10/2019. -Outpatient follow-up with Dr. Jacome (10) Acute respiratory failure Qualifiers: Respiratory failure complication: hypoxia and hypercapnia Qualified Code(s): J96.01 - Acute respiratory failure with hypoxia; J96.02 - Acute respiratory failure with hypercapnia Is this a current diagnosis for this admission?: Yes Plan: Resolved. Secondary to lung cancer on large right pleural effusion. Extubated on 05/17/2019. Now maintaining oxygen saturations on room air. (11) DVT (deep venous thrombosis) Qualifiers: DVT location: lower extremity Affected thrombotic vein of extremity: femoral Chronicity: acute Laterality: right Qualified Code(s): I82.411 - Acute embolism and thrombosis of right femoral vein Is this a current diagnosis for this admission?: Yes Plan: continue Xarelto. (12) SOLEDAD (acute kidney injury) Is this a current diagnosis for this admission?: Yes Plan: Resolved. Likely prerenal secondary to poor p.o. fluid intake, hypotension, (losartan, metformin, gabapentin) Encourage p.o. fluids. Avoid nephrotoxic medications as able. Monitor daily chemistries. (13) Fever Is this a current diagnosis for this admission?: Yes Plan: Resolved (14) Neuropathy Is this a current diagnosis for this admission?: Yes Plan: Resume home dose of gabapentin. Sliding scale oxycodone with IV morphine for breakthrough pain. Heating pad. Continue working with physical therapy. (15) Cancer related pain Is this a current diagnosis for this admission?: Yes Plan: Resume home dose of gabapentin. Sliding scale oxycodone with IV morphine for breakthrough pain. Heating pad. (16) Lung mass Is this a current diagnosis for this admission?: Yes Plan: As above Established with Dr. Gutierrez as an outpatient. - Time Time Spent with patient: 35 or more minutes Medications reviewed and adjusted accordingly: Yes Anticipated discharge: [facility] - Pending surgical recommendations.
--- NOTE | 2019-05-24 20:04 | PDOC CONSULTATION ---
Consultation Consult Date: 05/24/19 Provider Consulted: SURGICAL SURGICALIST Consult reason:: Malignant pleural effusion. Chest tube in place. History of Present Illness Admission Date/PCP: 05/12/19 14:45 МАРИНА SPANGLER MD History of Present Illness: VLADIMIR LUCERO is a 64 year old female with a known history of stage IV lung cancer. She is a large pleural effusion, from which she was symptomatic. Radiology placed a posterior 12 Croatian thoracostomy. The patient now has an indwelling chest tube with a persistent malignant pleural effusion. I have been consulted to "manage the chest tube". The patient denies any chest pain or shortness of breath at this time. The patient is scheduled to start treatment for her lung cancer in the near future. She denies dizziness, orthostasis, fati veronique, malaise, nausea, vomiting, abdominal pain. The nurse reports that the thoracostomy produced 250 cc of fluid over 24 hours. Past Medical History Cardiac Medical History: Reports: DVT, Hypertension EENT Medical History: Reports: Other - Right lower extremity deep venous thrombosis Endocrine Medical History: Reports: Diabetes Mellitus Type 2, Obesity Renal/ Medical History: Reports: None Malignancy Medical History: Reports: Lung Cancer GI Medical History: Reports: None Musculoskeltal Medical History: Reports: Arthritis Psychiatric Medical History: Denies: Depression Hematology: Reports: Other - Right lower extremity deep venous thrombosis Past Surgical History Past Surgical History: Reports: Cholecystectomy, Hysterectomy, Orthopedic Surgery - Right knee arthroscopic Social History Lives with: Family Smoking Status: Former Smoker Electronic Cigarette use?: No Frequency of Alcohol Use: None Hx Recreational Drug Use: No Drugs: None Hx Prescription Drug Abuse: No - Advance Directive Resuscitation Status: Full Code Family History Family History: Reviewed & Not Pertinent, Arthritis, DM, Hypertension, Malignancy Parental Family History Reviewed: Yes Children Family History Reviewed: Yes Sibling(s) Family History Reviewed.: Yes Medication/Allergy Home Medications: Celecoxib [Celebrex 200 mg Capsule] 200 mg PO Q12 05/08/19 Furosemide [Lasix 40 mg Tablet] 40 mg PO DAILY 05/08/19 Gabapentin [Neurontin] 600 mg PO Q8 05/08/19 Glimepiride [Amaryl 4 mg Tablet] 4 mg PO BID 05/08/19 Linaclotide [Linzess 145 Mcg Capsule] 145 mcg PO DAILY 05/08/19 Metformin HCl [Metformin HCl ER] 1,000 mg PO BIDBS 05/08/19 Oxycodone HCl [Oxy-Ir 5 mg Tablet] 10 mg PO Q8HP PRN 05/08/19 Oxycodone HCl/Acetaminophen [Oxycodone-Acetaminophen 10-325] 1 tab PO Q8HP PRN 05/08/19 Ranitidine HCl [Zantac] 150 mg PO BID 05/08/19 Rivaroxaban [Xarelto] 20 mg PO BID 05/08/19 Valsartan/Hydrochlorothiazide [Valsartan-Hctz 160-12.5 mg Tab] 1 tab PO DAILY 05/08/19 Acetaminophen [Tylenol 325 mg Tablet] 650 mg PO Q6HP PRN tablet 05/15/19 Metoprolol Tartrate [Lopressor 25 mg Tablet] 25 mg PO Q12 #60 tablet 05/15/19 Polyethylene Glycol 3350 [Miralax Powder 17 gm/Packet] 17 gm PO DAILY powd.pack 05/15/19 Allergies/Adverse Reactions: iodine Allergy (Verified 03/25/19 15:37) Review of Systems Constitutional: ABSENT: fever(s), headache(s) Eyes: ABSENT: visual disturbances Ears: ABSENT: hearing changes Nose, Mouth, and Throat: ABSENT: sore throat Cardiovascular: PRESENT: other - Discomfort at thoracostomy insertion site.. ABSENT: dyspnea on exertion Respiratory: ABSENT: cough Gastrointestinal: ABSENT: abdominal pain, bloating Genitourinary: ABSENT: dysuria Integumentary: ABSENT: pruritus, rash Neurological: ABSENT: confusion, convulsions, dizziness Psychiatric: ABSENT: anxiety Endocrine: ABSENT: cold intolerance, heat intolerance Hematologic/Lymphatic: ABSENT: easy bleeding, easy bruising Physical Exam Vital Signs: Temp Pulse Resp BP Pulse Ox 97.8 F 85 17 99/50 L 95 05/24/19 16:00 05/24/19 16:00 05/24/19 16:00 05/24/19 16:00 05/24/19 16:00 Pulse Oximeter Nocturnal Start: 05/14/19 13:35 Freq: RTQ4 Status: Complete Protocol: Document 05/15/19 07:26 CMI (Rec: 05/15/19 07:27 CMI [id number]) Nocturnal Pulse Oximetry Equipment Usage Equipment Discontinued Continuous SpO2 Machine # 5 Intake & Output 05/23/19 05/24/19 05/25/19 06:59 06:59 06:59 Intake Total 740 650 960 Output Total 740 4245 1440 Balance 0 -2093 -480 Weight 105 kg 95.9 kg General appearance: PRESENT: no acute distress, cooperative Head exam: PRESENT: atraumatic, normocephalic Eye exam: PRESENT: EOMI, PERRLA. ABSENT: scleral icterus Mouth exam: PRESENT: neck supple Neck exam: ABSENT: tenderness, thyromegaly, tracheal deviation Respiratory exam: PRESENT: other - Coarse breath sounds bilaterally. Diminished breath sounds on the right. Tube thoracostomy in place posteriorly. Serosanguineous fluid is draining, approximately 250 cc over 24 hours. No significant air leak. Pulses: PRESENT: normal radial pulses Vascular exam: PRESENT: normal capillary refill GI/Abdominal exam: PRESENT: soft. ABSENT: distended, tenderness Rectal exam: PRESENT: deferred Extremities exam: ABSENT: clubbing Neurological exam: PRESENT: alert, awake, oriented to person, oriented to place, oriented to time, oriented to situation Psychiatric exam: ABSENT: agitated, anxious, depressed Skin exam: ABSENT: erythema, jaundice Results Laboratory Results: 05/24/19 05:15 05/24/19 05:15 05/24/19 05/24/19 05:15 05:15 WBC 11.6 H RBC 2.89 L Hgb 8.8 L Hct 26.0 L MCV 90 MCH 30.6 MCHC 33.9 RDW 14.0 Plt Count 103 L Sodium 131.1 L Potassium 4.3 Chloride 98 Carbon Dioxide 29 Anion Gap 4 L BUN 18 Creatinine 0.95 Est GFR ( Amer) > 60 Glucose 179 H Calcium 10.8 H 05/08/19 05/15/19 12:26 17:15 Creatine Kinase 70 NT-Pro-B Natriuret Pep 594 H Impressions: Chest CT 05/15/19 18:00 IMPRESSION: Significant right pleural effusion with right lower lobe consolidation. Atelectasis versus pneumonia. Thyroid gland appears to be enlarged. Thyroid Ultrasound 05/16/19 08:00 IMPRESSION: Multinodular goiter as detailed above. Within the left lobe of thyroid gland there is a TR 3 nodule that measures approximately 1.5 cm. Thoracentesis Ultrasound 05/17/19 08:00 IMPRESSION: Successful ultrasound-guided placement of a 10 Croatian all-purpose drainage catheter into the fluid-filled right pleural space. Thoracentesis 05/20/19 00:00 IMPRESSION: SUCCESSFUL PLACEMENT OF A RIGHT SIDED CHEST TUBE USING CT GUIDANCE. Chest X-Ray 05/24/19 00:00 IMPRESSION: Unchanged radiographic appearance of the chest. Assessment & Plan - Diagnosis (1) Malignant pleural effusion Is this a current diagnosis for this admission?: Yes - Plan Summary Plan Summary: This is a 64-year-old female with stage IV lung cancer and a malignant pleural effusion. A chest tube was placed earlier this week. The patient has persistent drainage from her chest tube. It is impossible to remove this chest tube. 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 The only reasonable treatment for this is a chemical pleurodesis. The patient is too sick, and would not tolerate an operative/mechanical pleurodesis. I have discussed the case with pharmacy. I have requested that they release sterile talc to be used is a chemical pleuradesant. Pharmacy has refused to provide me with sterile talc. I believe this is the patient's one and only good option. I will attempt to procure talc and perform a chemical pleurodesis. If this is not possible, the patient should be transferred to a tertiary care center where this can be performed.
[2019-05-24] MEDS ORDERED: INSULIN REG, HUMAN 100 UNIT/ML 3 ML VIAL (PYX) IV ONE (23:45)
[2019-05-25] MEDS: OXYCODONE HCL IR 5 MG TABLET PO PRN ×2 (00:36→21:15)
[2019-05-25] MEDS: MORPHINE SULFATE 10 MG/ML INJ IV PRN ×2 (03:45→11:59)
[2019-05-25] MEDS: GABAPENTIN 300 MG CAPSULE PO SCH ×3 (05:19→22:58)
[2019-05-25] MEDS: DEXTROSE 5%-NORMAL SALINE 1,000 ML IV PRN (05:35)
[2019-05-25 05:58] LABS: HEMATOCRIT 28.6 % (36.0-47.0); HEMOGLOBIN 9.4 g/dL (12.0-15.5); MEAN CORPUSCULAR HEMOGLOBIN 30.2 pg (27.0-33.4); MEAN CORPUSCULAR HGB CONC 32.9 g/dL (32.0-36.0); MEAN CORPUSCULAR VOLUME 92 fl (80-97); PLATELET COUNT 105 10^3/uL (150-450); RED BLOOD COUNT 3.11 10^6/uL (3.72-5.28); RED CELL DISTRIBUTION WIDTH 14.2 % (11.5-14.0); WHITE BLOOD COUNT 13.2 10^3/uL (4.0-10.5)
[2019-05-25 06:40] LABS: ANION GAP 7 (5-19); BLOOD UREA NITROGEN 19 mg/dL (7-20); CALCIUM 11.2 mg/dL (8.4-10.2); CARBON DIOXIDE 28 mmol/L (22-30); CHLORIDE 100 mmol/L (98-107); GLUCOSE 150 mg/dL (75-110); POTASSIUM 4.6 mmol/L (3.6-5.0)
[2019-05-25] MEDS: MAGNESIUM OXIDE 400 MG TABLET PO SCH ×2 (07:42→17:16)
--- NOTE | 2019-05-25 08:12 | PDOC PROGRESS REPORT ---
Subjective Progress Note for:: 05/25/19 Subjective:: Had a long discussion with surgery, patient, spent about 45 minutes in discussion and coordination of care. Surgery feels that the pleural fluid will continue because it is a malignant effusion. Therefore even though the output is decreased, feel that pulling the chest tube may incur more problems possibly causing a fistula. Recommended that patient get a talc pleurodesis. They felt that doing a Pleurx catheter would be difficult because the defect caused by the larger bore chest tube would not seal around the smaller bore Pleurx catheter, if placed. We did order the new drug Tagrisso yesterday for her and as noted previously it will take 3 to 5 days to get shipped. Reason For Visit: RIGHT KNEE PAIN Physical Exam Vital Signs: Temp Pulse Resp BP Pulse Ox 97.9 F 88 18 100/58 L 100 05/25/19 03:27 05/25/19 03:27 05/25/19 03:27 05/25/19 03:27 05/25/19 03:27 Pulse Oximeter Nocturnal Start: 05/14/19 13:35 Freq: RTQ4 Status: Complete Protocol: Document 05/15/19 07:26 CMI (Rec: 05/15/19 07:27 CMI [id number]) Nocturnal Pulse Oximetry Equipment Usage Equipment Discontinued Continuous SpO2 Machine # 5 Intake & Output 05/24/19 05/25/19 05/26/19 06:59 06:59 06:59 Intake Total 650 1960 Output Total 2745 1840 Balance -2095 120 Weight 95.9 kg 95.7 kg General appearance: PRESENT: no acute distress, well-developed, well-nourished Head exam: PRESENT: atraumatic, normocephalic Eye exam: PRESENT: conjunctiva pink, EOMI, PERRLA. ABSENT: scleral icterus Ear exam: PRESENT: normal external ear exam Mouth exam: PRESENT: moist, tongue midline Neck exam: ABSENT: carotid bruit, JVD, lymphadenopathy, thyromegaly Respiratory exam: PRESENT: clear to auscultation shivam. ABSENT: rales, rhonchi, wheezes Cardiovascular exam: PRESENT: RRR. ABSENT: diastolic murmur, rubs, systolic murmur Pulses: PRESENT: normal dorsalis pedis pul Vascular exam: PRESENT: normal capillary refill GI/Abdominal exam: PRESENT: normal bowel sounds, soft. ABSENT: distended, guarding, mass, organolmegaly, rebound, tenderness Rectal exam: PRESENT: deferred Extremities exam: PRESENT: full ROM. ABSENT: calf tenderness, clubbing, pedal edema Neurological exam: PRESENT: alert, awake, oriented to person, oriented to place, oriented to time, oriented to situation, CN II-XII grossly intact. ABSENT: motor sensory deficit Psychiatric exam: PRESENT: appropriate affect, normal mood. ABSENT: homicidal ideation, suicidal ideation Skin exam: PRESENT: dry, intact, warm. ABSENT: cyanosis, rash Results Laboratory Results: 05/25/19 04:45 05/25/19 04:45 05/25/19 05/25/19 04:45 04:45 WBC 13.2 H RBC 3.11 L Hgb 9.4 L Hct 28.6 L MCV 92 MCH 30.2 MCHC 32.9 RDW 14.2 H Plt Count 105 L Sodium 134.8 L Potassium 4.6 Chloride 100 Carbon Dioxide 28 Anion Gap 7 BUN 19 Creatinine 1.07 Est GFR ( Amer) > 60 Glucose 150 H Calcium 11.2 H 05/08/19 05/15/19 12:26 17:15 Creatine Kinase 70 NT-Pro-B Natriuret Pep 594 H Impressions: Chest CT 05/15/19 18:00 IMPRESSION: Significant right pleural effusion with right lower lobe consolidation. Atelectasis versus pneumonia. Thyroid gland appears to be enlarged. Thyroid Ultrasound 05/16/19 08:00 IMPRESSION: Multinodular goiter as detailed above. Within the left lobe of thyroid gland there is a TR 3 nodule that measures approximately 1.5 cm. Thoracentesis Ultrasound 05/17/19 08:00 IMPRESSION: Successful ultrasound-guided placement of a 10 Divehi all-purpose drainage catheter into the fluid-filled right pleural space. Thoracentesis 05/20/19 00:00 IMPRESSION: SUCCESSFUL PLACEMENT OF A RIGHT SIDED CHEST TUBE USING CT GUIDANCE. Chest X-Ray 05/24/19 00:00 IMPRESSION: Unchanged radiographic appearance of the chest. Assessment & Plan - Diagnosis (1) Malignant pleural effusion Is this a current diagnosis for this admission?: Yes Plan: plan for transfer to tertiary facility, will discuss with hospitalist team (2) Lung cancer Qualifiers: Laterality: right Lung location: lower lobe of lung Qualified Code(s): C34.31 - Malignant neoplasm of lower lobe, right bronchus or lung Is this a current diagnosis for this admission?: Yes Plan: Plan for initiation of Tagrisso once patient receives drug (3) Effusion, right knee Is this a current diagnosis for this admission?: Yes Plan: Improving, continue with physical therapy - Time Time Spent with patient: 35 or more minutes
[2019-05-25] MEDS: INSULIN LISPRO 100 UNIT/ML 3 ML VIAL SUBCUT SCH ×4 (08:56→23:03)
[2019-05-25] MEDS: RIVAROXABAN 10 MG TABLET PO SCH (09:41)
[2019-05-25] MEDS: LEVOFLOXACIN 750 MG TABLET PO SCH (09:42)
[2019-05-25] MEDS: CELECOXIB 200 MG CAPSULE PO SCH ×2 (09:43→22:58)
[2019-05-25] MEDS: LISINOPRIL 10 MG TABLET PO SCH (09:44)
[2019-05-25] MEDS: FAMOTIDINE 20 MG TABLET PO SCH ×2 (09:47→22:58)
[2019-05-25] MEDS: FUROSEMIDE 20 MG TABLET PO SCH (09:47)
[2019-05-25] MEDS: METOPROLOL SUCCINATE 25 MG TAB.SR.24H PO SCH ×2 (09:48→22:58)
[2019-05-25] MEDS ORDERED: ROPINIROLE HCL 0.25 MG TABLET PO ONE (10:00)
[2019-05-25] MEDS ORDERED: FUROSEMIDE 40 MG TABLET PO SCH (10:00)
--- NOTE | 2019-05-25 12:42 | PDOC PROGRESS REPORT ---
Subjective Progress Note for:: 05/25/19 Subjective:: 64-year-old female with stage IV lung cancer, malignant pleural effusion, and now a pleurocutaneous fistula. The patient denies chest pain, fevers, chills, or shortness of breath. She denies abdominal pain, or other symptoms. Reason For Visit: RIGHT KNEE PAIN Physical Exam Vital Signs: Temp Pulse Resp BP Pulse Ox 98.1 F 90 17 92/43 L 95 05/25/19 11:45 05/25/19 11:45 05/25/19 11:45 05/25/19 11:45 05/25/19 11:45 Pulse Oximeter Nocturnal Start: 05/14/19 13:35 Freq: RTQ4 Status: Complete Protocol: Document 05/15/19 07:26 CMI (Rec: 05/15/19 07:27 CMI [id number]) Nocturnal Pulse Oximetry Equipment Usage Equipment Discontinued Continuous SpO2 Machine # 5 Intake & Output 05/24/19 05/25/19 05/26/19 06:59 06:59 06:59 Intake Total 650 1960 280 Output Total 2745 1840 Balance -2095 120 280 Weight 95.9 kg 95.7 kg General appearance: PRESENT: no acute distress, obese Head exam: PRESENT: atraumatic, normocephalic Eye exam: PRESENT: EOMI, PERRLA Mouth exam: PRESENT: neck supple Neck exam: ABSENT: tenderness, thyromegaly, tracheal deviation, tracheostomy Respiratory exam: PRESENT: other - Coarse breath sounds bilaterally. Decreased breath sounds on the right. Right posterior thoracostomy with serosanguineous output. Greater than 250 cc out over 24 hours. Pulses: PRESENT: normal radial pulses GI/Abdominal exam: PRESENT: soft. ABSENT: distended, rigid, tenderness Extremities exam: ABSENT: clubbing Musculoskeletal exam: ABSENT: deformity Neurological exam: PRESENT: alert, awake, oriented to person, oriented to place, oriented to time, oriented to situation Psychiatric exam: ABSENT: anxious Focused psych exam: ABSENT: delusional Skin exam: ABSENT: cyanosis, erythema, jaundice Results Laboratory Results: 05/25/19 04:45 05/25/19 04:45 05/25/19 05/25/19 04:45 04:45 WBC 13.2 H RBC 3.11 L Hgb 9.4 L Hct 28.6 L MCV 92 MCH 30.2 MCHC 32.9 RDW 14.2 H Plt Count 105 L Sodium 134.8 L Potassium 4.6 Chloride 100 Carbon Dioxide 28 Anion Gap 7 BUN 19 Creatinine 1.07 Est GFR ( Amer) > 60 Glucose 150 H Calcium 11.2 H 05/08/19 05/15/19 12:26 17:15 Creatine Kinase 70 NT-Pro-B Natriuret Pep 594 H Impressions: Chest CT 05/15/19 18:00 IMPRESSION: Significant right pleural effusion with right lower lobe consolidation. Atelectasis versus pneumonia. Thyroid gland appears to be enlarged. Thyroid Ultrasound 05/16/19 08:00 IMPRESSION: Multinodular goiter as detailed above. Within the left lobe of thyroid gland there is a TR 3 nodule that measures approximately 1.5 cm. Thoracentesis Ultrasound 05/17/19 08:00 IMPRESSION: Successful ultrasound-guided placement of a 10 Guatemalan all-purpose drainage catheter into the fluid-filled right pleural space. Thoracentesis 05/20/19 00:00 IMPRESSION: SUCCESSFUL PLACEMENT OF A RIGHT SIDED CHEST TUBE USING CT GUIDANCE. Chest X-Ray 05/24/19 00:00 IMPRESSION: Unchanged radiographic appearance of the chest. Assessment & Plan - Diagnosis (1) Malignant pleural effusion Is this a current diagnosis for this admission?: Yes - Time Time Spent with patient: Less than 15 minutes - Plan Summary Plan Summary: 64-year-old female with a malignant pleural effusion. I have discussed the situation again with pharmacy today. They have been able to secure a talc slurry. Plan to perform chemical pleurodesis tomorrow with talc. This is been discussed at length with the patient. She is in agreement with the treatment plan. Risk/benefits discussed, informed consent obtained, and all questions answered.
--- NOTE | 2019-05-25 14:33 | PDOC PROGRESS REPORT ---
Subjective Progress Note for:: 05/25/19 Subjective:: The patient is a 64-year-old female with past medical history of hypertension, DM 2, obesity, lung cancer, and arthritis who was admitted to the orthopedic service. Hospitalist service consulted for tachycardia, SOLEDAD, medication management and subsequently developed acute respiratory failure w/ hypoxia and an accelerated junctional rhythm nonresponsive to adenosine x3 and cardioversion (100, 150, 200J). Ultimately, rate control achieved via amiodarone. Found to have large right sided pleural effusion now s/p chest tube placement. Patient was seen on morning rounds with her present. She is found resting in bed comfortably on supplemental oxygen via nasal cannula 2 L/min. She is not home O2 dependent. She is awake and A&O x4. She again describes bilateral lower extremity discomfort, relieved by movement, but quickly recurs upon rest. She states that her leg discomfort is interrupting her sleep and that she feels like that if she were able to ambulate that would also relieve the discomfort. She would denies any prior history of restless leg syndrome. Otherwise, she denies fever, chills, chest pain, dyspnea, abdominal pain, nausea vomiting or diarrhea. They have no other questions or concerns at this time. No concerns per nursing. Reason For Visit: RIGHT KNEE PAIN Physical Exam Vital Signs: Temp Pulse Resp BP Pulse Ox 98.1 F 90 17 92/43 L 95 05/25/19 11:45 05/25/19 11:45 05/25/19 11:45 05/25/19 11:45 05/25/19 11:45 Pulse Oximeter Nocturnal Start: 05/14/19 13:35 Freq: RTQ4 Status: Complete Protocol: Document 05/15/19 07:26 CMI (Rec: 05/15/19 07:27 CMI [id number]) Nocturnal Pulse Oximetry Equipment Usage Equipment Discontinued Continuous SpO2 Machine # 5 Intake & Output 05/24/19 05/25/19 05/26/19 06:59 06:59 06:59 Intake Total 650 1960 1000 Output Total 2745 1840 0 Balance -5 120 1000 Weight 95.9 kg 95.7 kg General appearance: PRESENT: no acute distress, cooperative, obese, well- developed, well-nourished Head exam: PRESENT: atraumatic, normocephalic Eye exam: PRESENT: conjunctiva pink, EOMI, PERRLA. ABSENT: scleral icterus Ear exam: PRESENT: normal external ear exam Mouth exam: PRESENT: moist, tongue midline Respiratory exam: PRESENT: clear to auscultation shivam, decreased breath sounds - Diminished on right, symmetrical, unlabored, other - Supplemental oxygen by nasal cannula. ABSENT: rales, rhonchi, wheezes Cardiovascular exam: PRESENT: RRR, +S1, +S2. ABSENT: diastolic murmur, rubs, systolic murmur Pulses: PRESENT: normal dorsalis pedis pul Vascular exam: PRESENT: normal capillary refill GI/Abdominal exam: PRESENT: normal bowel sounds, soft. ABSENT: distended, guarding, mass, organolmegaly, rebound, tenderness Rectal exam: PRESENT: deferred Extremities exam: PRESENT: full ROM. ABSENT: calf tenderness, clubbing, pedal edema Neurological exam: PRESENT: alert, awake, oriented to person, oriented to place, oriented to time, oriented to situation, CN II-XII grossly intact. ABSENT: motor sensory deficit Psychiatric exam: PRESENT: appropriate affect, normal mood. ABSENT: homicidal ideation, suicidal ideation Skin exam: PRESENT: dry, intact, warm. ABSENT: cyanosis, rash Results Laboratory Results: 05/25/19 04:45 05/25/19 04:45 05/25/19 05/25/19 04:45 04:45 WBC 13.2 H RBC 3.11 L Hgb 9.4 L Hct 28.6 L MCV 92 MCH 30.2 MCHC 32.9 RDW 14.2 H Plt Count 105 L Sodium 134.8 L Potassium 4.6 Chloride 100 Carbon Dioxide 28 Anion Gap 7 BUN 19 Creatinine 1.07 Est GFR ( Amer) > 60 Glucose 150 H Calcium 11.2 H 05/08/19 05/15/19 12:26 17:15 Creatine Kinase 70 NT-Pro-B Natriuret Pep 594 H Impressions: Chest CT 05/15/19 18:00 IMPRESSION: Significant right pleural effusion with right lower lobe consolidation. Atelectasis versus pneumonia. Thyroid gland appears to be enlarged. Thyroid Ultrasound 05/16/19 08:00 IMPRESSION: Multinodular goiter as detailed above. Within the left lobe of thyroid gland there is a TR 3 nodule that measures approximately 1.5 cm. Thoracentesis Ultrasound 05/17/19 08:00 IMPRESSION: Successful ultrasound-guided placement of a 10 Mozambican all-purpose drainage catheter into the fluid-filled right pleural space. Thoracentesis 05/20/19 00:00 IMPRESSION: SUCCESSFUL PLACEMENT OF A RIGHT SIDED CHEST TUBE USING CT GUIDANCE. Chest X-Ray 05/24/19 00:00 IMPRESSION: Unchanged radiographic appearance of the chest. Assessment and Plan - Diagnosis (1) Malignant pleural effusion Is this a current diagnosis for this admission?: Yes Plan: -Right-sided -S/P thoracentesis on 05/17/2019 with 10 Mozambican chest tube placed. The chest tube was eventually exchanged with improved output. Now gradual decrease noted. Pathology results confirm malignancy. Dr. Gutierrez is consulted; plans to start chemotherapy here. Medication is on order; should arrive on early next week. Prior plans to travel to [place] are now on hold indefinitely. Dr. Duarte planning to do chemical pleurodesis tomorrow. May continue Xarelto per Dr. Cm. (2) Tachycardia Is this a current diagnosis for this admission?: Yes Plan: Resolved. -Patient was started on amiodarone 400 mg every 12 hours in the ICU. This was done as a means to address patient's episode of resilient junctional ectopic tachycardia in the 160s which was aggravated by patient's acute worsening hypoxia. The initial episode was recently ends to synchronized cardioversion x3 and only responded to amiodarone IV bolus. Discussed with Dr. Talavera yesterday We will discontinue amiodarone. Continue Toprol-XL. Continue lisinopril. Continue to monitor on telemetry. Limited echocardiogram scheduled for the end of the week to evaluate for cardiomyopathy. (3) Diabetes Qualifiers: Diabetes mellitus type: type 2 Diabetes mellitus complication status: without complication Is this a current diagnosis for this admission?: Yes Plan: A1c 6.9% Poorly controlled on sliding scale alone. Improved blood sugars and appetite. We will discontinue IV fluids. Continue Accu-Cheks before meals and at bedtime with sliding scale insulin. Consistent carb diet. Registered dietitian and early childhood educator aide consulted. (4) HTN (hypertension) Is this a current diagnosis for this admission?: Yes Plan: Persistent low blood pressures today at present. We will decrease Toprol-XL today. Have decreased lisinopril and and furosemide. (5) Lung cancer Qualifiers: Laterality: right Lung location: lower lobe of lung Qualified Code(s): C34.31 - Malignant neoplasm of lower lobe, right bronchus or lung Is this a current diagnosis for this admission?: Yes Plan: Oncology is consulted; primary management per Dr. Gutierrez. (6) Postobstructive pneumonia Is this a current diagnosis for this admission?: Yes Plan: In lieu of patient's persistent leukocytosis, cough and reported CT imaging of right lung consolidation, have opted to start treatment with Levaquin for 7 days for potential postobstructive pneumonia in the right lung. Blood cultures are negative. Sputum culture shows reduced normal ninoska Continue levofloxacin through May 27. (7) Reactive depression Is this a current diagnosis for this admission?: Yes Plan: Improved mood today. Interacting well with family, hospital staff members and myself. Patient is encouraged to continue consideration of starting antidepressant. (8) Subclinical hyperthyroidism Is this a current diagnosis for this admission?: Yes Plan: Thyroid ultrasound reveals multinodular goiter with largest nodule of about 1.5 cm. -Patient needs outpatient follow-up with an endless track vehicle supervisor. Continue with beta-jerica for now. (9) Hemarthrosis, right knee Is this a current diagnosis for this admission?: Yes Plan: s/p right knee lavage with synovectomy and meniscectomy on 05/10/2019. -Outpatient follow-up with Dr. Jacome (10) Acute respiratory failure Qualifiers: Respiratory failure complication: hypoxia and hypercapnia Qualified Code(s): J96.01 - Acute respiratory failure with hypoxia; J96.02 - Acute respiratory failure with hypercapnia Is this a current diagnosis for this admission?: Yes Plan: Resolved. Secondary to lung cancer on large right pleural effusion. Extubated on 05/17/2019. Now maintaining oxygen saturations on room air. (11) DVT (deep venous thrombosis) Qualifiers: DVT location: lower extremity Affected thrombotic vein of extremity: femoral Chronicity: acute Laterality: right Qualified Code(s): I82.411 - Acute embolism and thrombosis of right femoral vein Is this a current diagnosis for this admission?: Yes Plan: continue Xarelto. (12) SOLEDAD (acute kidney injury) Is this a current diagnosis for this admission?: Yes Plan: Resolved. Likely prerenal secondary to poor p.o. fluid intake, hypotension, (losartan, metformin, gabapentin) Encourage p.o. fluids. Avoid nephrotoxic medications as able. Monitor daily chemistries. (13) Fever Is this a current diagnosis for this admission?: Yes Plan: Resolved (14) Neuropathy Is this a current diagnosis for this admission?: Yes Plan: Resume home dose of gabapentin. Sliding scale oxycodone with IV morphine for breakthrough pain. Heating pad. Continue working with physical therapy. (15) Cancer related pain Is this a current diagnosis for this admission?: Yes Plan: Resume home dose of gabapentin. Sliding scale oxycodone with IV morphine for breakthrough pain. Heating pad. (16) Lung mass Is this a current diagnosis for this admission?: Yes Plan: As above Established with Dr. Gutierrez as an outpatient. (17) RLS (restless legs syndrome) Is this a current diagnosis for this admission?: Yes Plan: Trial of low-dose Requip today with some relief. We will continue twice daily - Time Time Spent with patient: 35 or more minutes Medications reviewed and adjusted accordingly: Yes Anticipated discharge: Home with Homehealth
[2019-05-25] MEDS: POLYETHYLENE GLYCOL 3350 POWDER 17 GM/1 PACKET PO PRN (18:04)
[2019-05-25] MEDS ORDERED: ROPINIROLE HCL 1 MG TABLET PO SCH (22:00)
[2019-05-26] MEDS: GABAPENTIN 300 MG CAPSULE PO SCH ×3 (05:38→23:01)
[2019-05-26] MEDS: POLYETHYLENE GLYCOL 3350 POWDER 17 GM/1 PACKET PO PRN (05:43)
[2019-05-26] MEDS: OXYCODONE HCL IR 5 MG TABLET PO PRN ×3 (05:43→17:39)
[2019-05-26] MEDS ORDERED: ROPINIROLE HCL 0.25 MG TABLET PO SCH (08:00)
--- NOTE | 2019-05-26 08:21 | PDOC PROGRESS REPORT ---
Subjective Progress Note for:: 05/26/19 Subjective:: Patient is stable, per Dr. Duarte [facility] will be able to get the talc to be able to do the talc pleurodesis. Reason For Visit: RIGHT KNEE PAIN Physical Exam Vital Signs: Temp Pulse Resp BP Pulse Ox 97.9 F 91 20 102/58 L 95 05/26/19 03:59 05/26/19 03:59 05/26/19 03:59 05/26/19 04:01 05/26/19 03:59 Pulse Oximeter Nocturnal Start: 05/14/19 13:35 Freq: RTQ4 Status: Complete Protocol: Document 05/15/19 07:26 CMI (Rec: 05/15/19 07:27 CMI [id number]) Nocturnal Pulse Oximetry Equipment Usage Equipment Discontinued Continuous SpO2 Machine # 5 Intake & Output 05/25/19 05/26/19 05/27/19 06:59 06:59 06:59 Intake Total 1960 1596 Output Total 1840 215 Balance 120 1381 Weight 95.7 kg 100.4 kg General appearance: PRESENT: no acute distress, well-developed, well-nourished Head exam: PRESENT: atraumatic, normocephalic Eye exam: PRESENT: conjunctiva pink, EOMI, PERRLA. ABSENT: scleral icterus Ear exam: PRESENT: normal external ear exam Mouth exam: PRESENT: moist, tongue midline Neck exam: ABSENT: carotid bruit, JVD, lymphadenopathy, thyromegaly Respiratory exam: PRESENT: clear to auscultation shivam. ABSENT: rales, rhonchi, wheezes Cardiovascular exam: PRESENT: RRR. ABSENT: diastolic murmur, rubs, systolic murmur Pulses: PRESENT: normal dorsalis pedis pul Vascular exam: PRESENT: normal capillary refill GI/Abdominal exam: PRESENT: normal bowel sounds, soft. ABSENT: distended, guarding, mass, organolmegaly, rebound, tenderness Rectal exam: PRESENT: deferred Extremities exam: PRESENT: full ROM. ABSENT: calf tenderness, clubbing, pedal edema Neurological exam: PRESENT: alert, awake, oriented to person, oriented to place, oriented to time, oriented to situation, CN II-XII grossly intact. ABSENT: motor sensory deficit Psychiatric exam: PRESENT: appropriate affect, normal mood. ABSENT: homicidal i deation, suicidal ideation Skin exam: PRESENT: dry, intact, warm. ABSENT: cyanosis, rash Results Laboratory Results: 05/25/19 04:45 05/25/19 04:45 05/08/19 05/15/19 12:26 17:15 Creatine Kinase 70 NT-Pro-B Natriuret Pep 594 H Impressions: Chest CT 05/15/19 18:00 IMPRESSION: Significant right pleural effusion with right lower lobe consolidation. Atelectasis versus pneumonia. Thyroid gland appears to be enlarged. Thyroid Ultrasound 05/16/19 08:00 IMPRESSION: Multinodular goiter as detailed above. Within the left lobe of thyroid gland there is a TR 3 nodule that measures approximately 1.5 cm. Thoracentesis Ultrasound 05/17/19 08:00 IMPRESSION: Successful ultrasound-guided placement of a 10 Persian all-purpose drainage catheter into the fluid-filled right pleural space. Thoracentesis 05/20/19 00:00 IMPRESSION: SUCCESSFUL PLACEMENT OF A RIGHT SIDED CHEST TUBE USING CT GUIDANCE. Chest X-Ray 05/24/19 00:00 IMPRESSION: Unchanged radiographic appearance of the chest. Assessment & Plan - Diagnosis (1) Malignant pleural effusion Is this a current diagnosis for this admission?: Yes Plan: Plan for ta pleurodesis when talc becomes available. (2) Lung cancer Qualifiers: Laterality: right Lung location: lower lobe of lung Qualified Code(s): C34.31 - Malignant neoplasm of lower lobe, right bronchus or lung Is this a current diagnosis for this admission?: Yes Plan: Ordered, awaiting shipment of Tag[place] (3) Effusion, right knee Is this a current diagnosis for this admission?: Yes Plan: Continue with rehab - Time Time Spent with patient: 15-24 minutes
[2019-05-26] MEDS: INSULIN LISPRO 100 UNIT/ML 3 ML VIAL SUBCUT SCH ×4 (08:29→22:41)
[2019-05-26] MEDS ORDERED: NORMAL SALINE IPL PRN (09:05)
[2019-05-26] MEDS ORDERED: DISPOSABLE IPL PRN (09:05)
[2019-05-26] MEDS ORDERED: TALC IPL PRN (09:05)
[2019-05-26] MEDS ORDERED: LIDOCAINE HCL IPL PRN (09:05)
[2019-05-26] MEDS: MAGNESIUM OXIDE 400 MG TABLET PO SCH ×2 (09:43→17:38)
[2019-05-26] MEDS: RIVAROXABAN 10 MG TABLET PO SCH (10:41)
[2019-05-26] MEDS: LEVOFLOXACIN 750 MG TABLET PO SCH (10:42)
[2019-05-26] MEDS: FAMOTIDINE 20 MG TABLET PO SCH ×2 (10:42→23:02)
[2019-05-26] MEDS: METOPROLOL SUCCINATE 25 MG TAB.SR.24H PO SCH ×2 (10:43→23:11)
[2019-05-26] MEDS: CELECOXIB 200 MG CAPSULE PO SCH ×2 (10:43→22:42)
[2019-05-26] MEDS: LISINOPRIL 10 MG TABLET PO SCH (10:46)
[2019-05-26] MEDS: FUROSEMIDE 20 MG TABLET PO SCH (10:47)
[2019-05-26] MEDS: MORPHINE SULFATE 10 MG/ML INJ IV PRN (18:27)
--- NOTE | 2019-05-26 18:51 | PDOC PROGRESS REPORT ---
Subjective Subjective:: 64-year-old female with stage IV lung cancer, malignant pleural effusion, and now a pleurocutaneous fistula. The patient denies chest pain, fevers, chills, or shortness of breath. She denies abdominal pain, or other symptoms. Reason For Visit: RIGHT KNEE PAIN Physical Exam Vital Signs: Temp Pulse Resp BP Pulse Ox 98.5 F 95 17 105/53 L 99 05/26/19 15:54 05/26/19 15:54 05/26/19 15:54 05/26/19 17:37 05/26/19 15:54 Pulse Oximeter Nocturnal Start: 05/14/19 13:35 Freq: RTQ4 Status: Complete Protocol: Document 05/15/19 07:26 CMI (Rec: 05/15/19 07:27 CMI [id number]) Nocturnal Pulse Oximetry Equipment Usage Equipment Discontinued Continuous SpO2 Machine # 5 Intake & Output 05/25/19 05/26/19 05/27/19 06:59 06:59 06:59 Intake Total 1960 1596 240 Output Total 1840 215 300 Balance 120 1381 -60 Weight 95.7 kg 100.4 kg Exam: General appearance: PRESENT: no acute distress, obese Head exam: PRESENT: atraumatic, normocephalic Eye exam: PRESENT: EOMI, PERRLA Mouth exam: PRESENT: neck supple Neck exam: ABSENT: tenderness, thyromegaly, tracheal deviation, tracheostomy Respiratory exam: PRESENT: other - Coarse breath sounds bilaterally. Decreased breath sounds on the right. Right posterior thoracostomy with serosanguineous output. Greater than 250 cc out over 24 hours. Pulses: PRESENT: normal radial pulses GI/Abdominal exam: PRESENT: soft. ABSENT: distended, rigid, tenderness Extremities exam: ABSENT: clubbing Musculoskeletal exam: ABSENT: deformity Neurological exam: PRESENT: alert, awake, oriented to person, oriented to place, oriented to time, oriented to situation Psychiatric exam: ABSENT: anxious Focused psych exam: ABSENT: delusional Skin exam: ABSENT: cyanosis, erythema, jaundice Results Laboratory Results: 05/25/19 04:45 05/25/19 04:45 05/08/19 05/15/19 12:26 17:15 Creatine Kinase 70 NT-Pro-B Natriuret Pep 594 H Impressions: Chest CT 05/15/19 18:00 IMPRESSION: Significant right pleural effusion with right lower lobe consolidation. Atelectasis versus pneumonia. Thyroid gland appears to be enlarged. Thyroid Ultrasound 05/16/19 08:00 IMPRESSION: Multinodular goiter as detailed above. Within the left lobe of thyroid gland there is a TR 3 nodule that measures approximately 1.5 cm. Thoracentesis Ultrasound 05/17/19 08:00 IMPRESSION: Successful ultrasound-guided placement of a 10 Romanian all-purpose drainage catheter into the fluid-filled right pleural space. Thoracentesis 05/20/19 00:00 IMPRESSION: SUCCESSFUL PLACEMENT OF A RIGHT SIDED CHEST TUBE USING CT GUIDANCE. Chest X-Ray 05/24/19 00:00 IMPRESSION: Unchanged radiographic appearance of the chest. Assessment & Plan - Diagnosis (1) Malignant pleural effusion Is this a current diagnosis for this admission?: Yes - Time Time Spent with patient: Less than 15 minutes - Plan Summary Plan Summary: 64-year-old female with a malignant pleural effusion. I have discussed the plan with pharmacy today. They have been able to secure a talc slurry. Plan to perform chemical pleurodesis today. This is been discussed at length with the patient. She is in agreement with the treatment plan. Risk/benefits discussed, informed consent obtained, and all questions answered.
--- NOTE | 2019-05-26 19:04 | PDOC PROGRESS REPORT ---
Subjective Progress Note for:: 05/26/19 Subjective:: The patient is a 64-year-old female with past medical history of hypertension, DM 2, obesity, lung cancer, and arthritis who was admitted to the orthopedic service. Hospitalist service consulted for tachycardia, SOLEDAD, medication management and subsequently developed acute respiratory failure w/ hypoxia and an accelerated junctional rhythm nonresponsive to adenosine x3 and cardioversion (100, 150, 200J). Ultimately, rate control achieved via amiodarone. Found to have large right sided pleural effusion now s/p chest tube placement. Patient was seen on morning rounds with her present. She is found resting in bed comfortably on supplemental oxygen via nasal cannula 2 L/min. She is not home O2 dependent. She is awake and A&O x4. She again describes bilateral lower extremity discomfort; thinks that the requip may have helped. She asks if a better dose can be provided at night to improve sleep. Otherwise, she denies fever, chills, chest pain, dyspnea, abdominal pain, nausea vomiting or diarrhea. They have no other questions or concerns at this time. No concerns per nursing. Reason For Visit: RIGHT KNEE PAIN Physical Exam Vital Signs: Temp Pulse Resp BP Pulse Ox 98.5 F 95 17 105/53 L 99 05/26/19 15:54 05/26/19 15:54 05/26/19 15:54 05/26/19 17:37 05/26/19 15:54 Pulse Oximeter Nocturnal Start: 05/14/19 13:35 Freq: RTQ4 Status: Complete Protocol: Document 05/15/19 07:26 CMI (Rec: 05/15/19 07:27 CMI [id number]) Nocturnal Pulse Oximetry Equipment Usage Equipment Discontinued Continuous SpO2 Machine # 5 Intake & Output 05/25/19 05/26/19 05/27/19 06:59 06:59 06:59 Intake Total 1960 1596 240 Output Total 1840 215 300 Balance 120 1381 -60 Weight 95.7 kg 100.4 kg General appearance: PRESENT: no acute distress, cooperative, obese, well- developed, well-nourished Head exam: PRESENT: atraumatic, normocephalic Eye exam: PRESENT: conjunctiva pink, EOMI, PERRLA. ABSENT: scleral icterus Ear exam: PRESENT: normal external ear exam Mouth exam: PRESENT: moist, tongue midline Respiratory exam: PRESENT: chest wall tenderness - chest tube to rt chest wall, clear to auscultation shivam, decreased breath sounds - bibasilar; R>L, symmetrical, unlabored. ABSENT: rales, rhonchi, wheezes Cardiovascular exam: PRESENT: RRR, +S1, +S2. ABSENT: diastolic murmur, rubs, systolic murmur Pulses: PRESENT: normal dorsalis pedis pul Vascular exam: PRESENT: normal capillary refill GI/Abdominal exam: PRESENT: normal bowel sounds, soft. ABSENT: distended, guarding, mass, organolmegaly, rebound, tenderness Rectal exam: PRESENT: deferred Extremities exam: PRESENT: full ROM. ABSENT: calf tenderness, clubbing, pedal edema Neurological exam: PRESENT: alert, awake, oriented to person, oriented to place, oriented to time, oriented to situation, CN II-XII grossly intact. ABSENT: motor sensory deficit Psychiatric exam: PRESENT: appropriate affect, normal mood. ABSENT: homicidal ideation, suicidal ideation Skin exam: PRESENT: dry, intact, warm. ABSENT: cyanosis, rash Results Laboratory Results: 05/25/19 04:45 05/25/19 04:45 05/08/19 05/15/19 12:26 17:15 Creatine Kinase 70 NT-Pro-B Natriuret Pep 594 H Impressions: Chest CT 05/15/19 18:00 IMPRESSION: Significant right pleural effusion with right lower lobe con solidation. Atelectasis versus pneumonia. Thyroid gland appears to be enlarged. Thyroid Ultrasound 05/16/19 08:00 IMPRESSION: Multinodular goiter as detailed above. Within the left lobe of thyroid gland there is a TR 3 nodule that measures approximately 1.5 cm. Thoracentesis Ultrasound 05/17/19 08:00 IMPRESSION: Successful ultrasound-guided placement of a 10 Ukrainian all-purpose drainage catheter into the fluid-filled right pleural space. Thoracentesis 05/20/19 00:00 IMPRESSION: SUCCESSFUL PLACEMENT OF A RIGHT SIDED CHEST TUBE USING CT GUIDANCE. Chest X-Ray 05/24/19 00:00 IMPRESSION: Unchanged radiographic appearance of the chest. Assessment and Plan - Diagnosis (1) Malignant pleural effusion Is this a current diagnosis for this admission?: Yes Plan: -Right-sided -S/P thoracentesis on 05/17/2019 with 10 Ukrainian chest tube placed. The chest tube was eventually exchanged with improved output. Now gradual decrease noted. Pathology results confirm malignancy. Dr. Gutierrez is consulted; plans to start chemotherapy here. Medication is on order; should arrive on early next week. Prior plans to travel to [place] are now on hold indefinitely. Dr. Duarte planning to do chemical pleurodesis today May continue Xarelto per Dr. Cm. (2) Tachycardia Is this a current diagnosis for this admission?: Yes Plan: Resolved. -Patient was started on amiodarone 400 mg every 12 hours in the ICU. This was done as a means to address patient's episode of resilient junctional ectopic tachycardia in the 160s which was aggravated by patient's acute worsening hypoxia. The initial episode was recently ends to synchronized cardioversion x3 and only responded to amiodarone IV bolus. Discussed with Dr. Talavera yesterday We will discontinue amiodarone. Continue Toprol-XL. Continue lisinopril. Continue to monitor on telemetry. Limited echocardiogram pending. (3) Diabetes Qualifiers: Diabetes mellitus type: type 2 Diabetes mellitus complication status: without complication Is this a current diagnosis for this admission?: Yes Plan: A1c 6.9% Poorly controlled on sliding scale alone. Improved blood sugars and appetite. We will discontinue IV fluids. Continue Accu-Cheks before meals and at bedtime with sliding scale insulin. Consistent carb diet. Registered dietitian and unit educator consulted. (4) HTN (hypertension) Is this a current diagnosis for this admission?: Yes Plan: Persistent low blood pressures today at present. Have decreased Toprol-XL, lisinopril and and furosemide. (5) Lung cancer Qualifiers: Laterality: right Lung location: lower lobe of lung Qualified Code(s): C34.31 - Malignant neoplasm of lower lobe, right bronchus or lung Is this a current diagnosis for this admission?: Yes Plan: Oncology is consulted; primary management per Dr. Gutierrez. (6) Postobstructive pneumonia Is this a current diagnosis for this admission?: Yes Plan: In lieu of patient's persistent leukocytosis, cough and reported CT imaging of right lung consolidation, have opted to start treatment with Levaquin for 7 days for potential postobstructive pneumonia in the right lung. Blood cultures are negative. Sputum culture shows reduced normal ninoska Continue levofloxacin through May 27. (7) Reactive depression Is this a current diagnosis for this admission?: Yes Plan: Improved mood today. Interacting well with family, hospital staff members and myself. Patient is encouraged to continue consideration of starting antidepressant. (8) Subclinical hyperthyroidism Is this a current diagnosis for this admission?: Yes Plan: Thyroid ultrasound reveals multinodular goiter with largest nodule of about 1.5 cm. -Patient needs outpatient follow-up with an plasticator. Continue with beta-jerica for now. (9) Hemarthrosis, right knee Is this a current diagnosis for this admission?: Yes Plan: s/p right knee lavage with synovectomy and meniscectomy on 05/10/2019. -Outpatient follow-up with Dr. Jacome (10) Acute respiratory failure Qualifiers: Respiratory failure complication: hypoxia and hypercapnia Qualified Code(s): J96.01 - Acute respiratory failure with hypoxia; J96.02 - Acute respiratory failure with hypercapnia Is this a current diagnosis for this admission?: Yes Plan: Resolved. Secondary to lung cancer on large right pleural effusion. Extubated on 05/17/2019. (11) DVT (deep venous thrombosis) Qualifiers: DVT location: lower extremity Affected thrombotic vein of extremity: femoral Chronicity: acute Laterality: right Qualified Code(s): I82.411 - Acute embolism and thrombosis of right femoral vein Is this a current diagnosis for this admission?: Yes Plan: continue Xarelto. (12) SOLEDAD (acute kidney injury) Is this a current diagnosis for this admission?: Yes Plan: Resolved. Likely prerenal secondary to poor p.o. fluid intake, hypotension, (losartan, metformin, gabapentin) Encourage p.o. fluids. Avoid nephrotoxic medications as able. Monitor daily chemistries. (13) Fever Is this a current diagnosis for this admission?: Yes Plan: Resolved (14) Neuropathy Is this a current diagnosis for this admission?: Yes Plan: Resume home dose of gabapentin. Sliding scale oxycodone with IV morphine for breakthrough pain. Heating pad. Continue working with physical therapy. (15) Cancer related pain Is this a current diagnosis for this admission?: Yes Plan: Resume home dose of gabapentin. Sliding scale oxycodone with IV morphine for breakthrough pain. Celebrex twice daily Heating pad. (16) Lung mass Is this a current diagnosis for this admission?: Yes Plan: As above Established with Dr. Gutierrez as an outpatient. (17) RLS (restless legs syndrome) Is this a current diagnosis for this admission?: Yes Plan: Twice daily Requip - Time Time Spent with patient: 25-34 minutes Medications reviewed and adjusted accordingly: Yes Anticipated discharge: Home with Homehealth
--- NOTE | 2019-05-26 19:06 | Operative Report ---
Nonrecallable Operative Report DATE OF SURGERY: 05/26/19 PREOPERATIVE DIAGNOSIS: Malignant pleural effusion on the right POSTOPERATIVE DIAGNOSIS: Same OPERATION: Chemical pleurodesis of the right chest SURGEON: JACQUELINE CORDOBA ANESTHESIA: Other - none TISSUE REMOVED OR ALTERED: None COMPLICATIONS: None apparent ESTIMATED BLOOD LOSS: Minimal PROCEDURE: Procedure in detail: After informed consent was obtained from the patient, she was laid in the left lateral decubitus position. 100 cc of talc slurry (4 g of talc, 20 mL's of lidocaine, 80 cc of normal saline) was instilled into the right tube thoracostomy. The tube was clamped. Patient was left in the left lateral decubitus position and will remain there for 20 minutes, she will then be placed in the supine position for 20 minutes, and then will be placed into the right lateral decubitus position for 20 minutes. At 60 minutes, the chest tube will be unclamped and returned to suction. The patient tolerated the procedure well. She had some pain, but no evidence of respiratory distress. After 60 minutes the procedure was concluded. Condition: Fair.
[2019-05-26] MEDS ORDERED: ROPINIROLE HCL 1 MG TABLET PO SCH (22:00)
--- NOTE | 2019-05-26 22:48 | XCELERA REPORT ---
[address] [address] Transthoracic Echocardiogram Report Name: VLADIMIR LUCERO Age: 64 yrs Gender: Female : 1955 Patient Status: Inpatient Patient Location: [facility]^A Study Date: 05/26/2019 08:46 PM Height: 70 in Weight: 210 lb BSA: 2.1 m2 Procedure: A limited two-dimensional transthoracic echocardiogram was performed (2D). Study Quality: Poor. Reason For Study: cardiomyopathy History: CARDIOMYOPATHY: LIMITED FU FOR LVEF. Ordering Physician: GUANAKITO MCGRATH Performed By: Maggy Barnes Interpretation Summary Poor qaulity study.robably no LVH.No defenite wall motion abnormality.LVEF is probably at least 60% and is normal. MMode/2D Measurements & Calculations RVDd: 2.4 cm LVIDd: 4.4 cm FS: 16.5 % Ao root diam: 2.8 cm IVSd: 1.2 cm LVIDs: 3.7 cm EDV(Teich): 87.9 ml Ao root area: 6.4 cm2 LVPWd: 1.1 cm ESV(Teich): 57.3 ml LA dimension: 3.0 cm EF(Teich): 34.8 % Left Ventricle Poor qaulity study.robably no LVH.No defenite wall motion abnormality.LVEF is probably at least 60% and is normal. : GUANAKITO MCGRATH Lakshmi
[2019-05-27 05:24] LABS: HEMOGLOBIN 9.5 g/dL (12.0-15.5); MEAN CORPUSCULAR HGB CONC 32.8 g/dL (32.0-36.0); MEAN CORPUSCULAR VOLUME 92 fl (80-97); RED BLOOD COUNT 3.16 10^6/uL (3.72-5.28); RED CELL DISTRIBUTION WIDTH 14.2 % (11.5-14.0); WHITE BLOOD COUNT 18.4 10^3/uL (4.0-10.5)
[2019-05-27] MEDS: GABAPENTIN 300 MG CAPSULE PO SCH (05:35)
[2019-05-27 05:43] LABS: ANION GAP 7 (5-19); BLOOD UREA NITROGEN 35 mg/dL (7-20); CARBON DIOXIDE 26 mmol/L (22-30); CHLORIDE 97 mmol/L (98-107); GLUCOSE 139 mg/dL (75-110); POTASSIUM 5.8 mmol/L (3.6-5.0)
[2019-05-27 05:46] LABS: PLATELET COUNT 82 10^3/uL (150-450)
[2019-05-27 05:56] LABS: CALCIUM 12.7 mg/dL (8.4-10.2)
[2019-05-27] MEDS ORDERED: LACTULOSE SYRUP 20 GM/30 ML UDCUP PO ONE (06:39)
[2019-05-27] MEDS ORDERED: SODIUM POLYSTYRENE SULFONATE 15 GM/60 ML PO ONE (06:39)
[2019-05-27] MEDS ORDERED: IPRATROPIUM/ALBUTEROL 0.5-2.5 MG/3 ML AMPUL NEB ONE (06:40)
[2019-05-27] MEDS ORDERED: NORMAL SALINE 1000 ML 1,000 ML IV ONE (06:45)
[2019-05-27] MEDS: INSULIN LISPRO 100 UNIT/ML 3 ML VIAL SUBCUT SCH ×4 (09:12→22:05)
--- NOTE | 2019-05-27 09:15 | RADIOLOGY REPORT (SQ) ---
EXAM DESCRIPTION: CHEST SINGLE VIEW COMPLETED DATE/TIME: 05/27/2019 8:42 am REASON FOR STUDY: Shortness of Breath COMPARISON: 05/24/2019 NUMBER OF VIEWS: One view. TECHNIQUE: Single frontal radiographic image of the chest acquired. LIMITATIONS: None. FINDINGS: LUNGS AND PLEURA: Complete silhouetting of the right heart border and diaphragm. No pneum othorax. Left lung is clear. MEDIASTINUM AND HEART: Stable heart size and mediastinal structures. SUPPORT DEVICES: Appropriate location without change. BONY STRUCTURES: No acute findings. HARDWARE: None. OTHER: No other significant finding. IMPRESSION: Rehydration versus progressing atelectasis or pneumonia in the right lung. No pneumotho rax. Reading location - IP/workstation name: [email or web address]
[2019-05-27] MEDS: LISINOPRIL 10 MG TABLET PO SCH (09:32)
[2019-05-27] MEDS: MORPHINE SULFATE 10 MG/ML INJ IV PRN (09:32)
[2019-05-27] MEDS: FAMOTIDINE 20 MG TABLET PO SCH ×2 (09:32→22:05)
[2019-05-27] MEDS: NORMAL SALINE 1000 ML 1,000 ML IV PRN ×2 (09:33→16:47)
[2019-05-27] MEDS: RIVAROXABAN 10 MG TABLET PO SCH (09:33)
[2019-05-27] MEDS: METOPROLOL SUCCINATE 25 MG TAB.SR.24H PO SCH (09:33)
[2019-05-27] MEDS: MAGNESIUM OXIDE 400 MG TABLET PO SCH ×2 (09:33→16:47)
[2019-05-27] MEDS: LIDOCAINE 5% (700 MG) TRANSDERMAL ADH..PATCH TP SCH (09:34)
[2019-05-27 09:42] LABS: ARTERIAL BLOOD H2CO3 1.17 mmol/L (1.05-1.35); ARTERIAL BLOOD O2 SATURATION 93.4 % (94-98); ARTERIAL BLOOD PCO2 38.9 mmHg (35-45); ARTERIAL BLOOD PH 7.37 (7.35-7.45); ARTERIAL BLOOD PO2 68.7 mmHg (80-100); ARTERIAL BLOOD TOTAL CO2 23.2 mmol/L (21-25)
[2019-05-27 09:43] LABS: ARTERIAL BLOOD FIO2 3L
--- NOTE | 2019-05-27 10:07 | PDOC PROGRESS REPORT ---
Subjective Progress Note for:: 05/27/19 Subjective:: 64-year-old female with stage IV lung cancer, malignant pleural effusion, and now a pleurocutaneous fistula. The patient denies fevers, chills, abdominal pain. She reports shortness of breath this am. The nursing staff reports minimal chest tube output overnight. Reason For Visit: RIGHT KNEE PAIN Physical Exam Vital Signs: Temp Pulse Resp BP Pulse Ox 97.8 F 65 24 H 101/50 L 93 05/27/19 08:00 05/27/19 08:05 05/27/19 08:05 05/27/19 08:00 05/27/19 08:05 Pulse Oximeter Nocturnal Start: 05/14/19 13:35 Freq: RTQ4 Status: Complete Protocol: Document 05/15/19 07:26 CMI (Rec: 05/15/19 07:27 CMI [id number]) Nocturnal Pulse Oximetry Equipment Usage Equipment Discontinued Continuous SpO2 Machine # 5 Intake & Output 05/26/19 05/27/19 05/28/19 06:59 06:59 06:59 Intake Total 1596 240 Output Total 215 300 Balance 1381 -60 Weight 100.4 kg 100 kg Results Laboratory Results: 05/27/19 04:40 05/27/19 05/27/19 05/27/19 04:40 04:40 08:40 WBC 18.4 H RBC 3.16 L Hgb 9.5 L Hct 29.0 L MCV 92 MCH 30.0 MCHC 32.8 RDW 14.2 H Plt Count 82 L Carbonic Acid 1.17 HCO3/H2CO3 Ratio 18:1 ABG pH 7.37 ABG pCO2 38.9 ABG pO2 68.7 L ABG HCO3 22.0 ABG O2 Saturation 93.4 L ABG Base Excess -3.0 FiO2 3L Sodium 130.1 L Potassium 5.8 H Chloride 97 L Carbon Dioxide 26 Anion Gap 7 BUN 35 H Creatinine 2.49 H Est GFR ( Amer) 23 L Glucose 139 H Calcium 12.7 H* 05/08/19 05/15/19 12:26 17:15 Creatine Kinase 70 NT-Pro-B Natriuret Pep 594 H Impressions: Chest CT 05/15/19 18:00 IMPRESSION: Significant right pleural effusion with right lower lobe consolidation. Atelectasis versus pneumonia. Thyroid gland appears to be enlarged. Thyroid Ultrasound 05/16/19 08:00 IMPRESSION: Multinodular goiter as detailed above. Within the left lobe of thyroid gland there is a TR 3 nodule that measures approximately 1.5 cm. Thoracentesis Ultrasound 05/17/19 08:00 IMPRESSION: Successful ultrasound-guided placement of a 10 Comoran all-purpose drainage catheter into the fluid-filled right pleural space. Thoracentesis 05/20/19 00:00 IMPRESSION: SUCCESSFUL PLACEMENT OF A RIGHT SIDED CHEST TUBE USING CT GUIDANCE. Chest X-Ray 05/27/19 07:58 IMPRESSION: Rehydration versus progressing atelectasis or pneumonia in the right lung. No pneumothorax. Assessment & Plan - Diagnosis (1) Malignant pleural effusion Is this a current diagnosis for this admission?: Yes - Time Time Spent with patient: Less than 15 minutes - Plan Summary Plan Summary: 64-year-old female with a malignant pleural effusion. She is s/p chemical pleurodesis. She reports shortness of breath today, but her O2 sats are good. Her Chest x-ray is not significantly changed from 2 days ago. She continues to have consolidation of the entire right lower lobe with aeration of the right upper lobe. The tubing between the pleural catheter and the pleur-evac appears to be clogged. I have replaced this tubing, and serosanguinous fluid is now draining. Chemical pleurodesis can cause significant discomfort. This may be contributing to the patient's "shortness of breath". I have recommended a dose of Morphine to see if her rate of breathing improves. I will remove the pleural catheter once her output is less than 125cc/day. Will follow.
--- NOTE | 2019-05-27 12:13 | PDOC PROGRESS REPORT ---
Subjective Progress Note for:: 05/27/19 Subjective:: The patient is a 64-year-old female with past medical history of hypertension, DM 2, obesity, lung cancer, and arthritis who was admitted to the orthopedic service. Hospitalist service consulted for tachycardia, SOLEDAD, medication management and subsequently developed acute respiratory failure w/ hypoxia and an accelerated junctional rhythm nonresponsive to adenosine x3 and cardioversion (100, 150, 200J). Ultimately, rate control achieved via amiodarone. Found to have large right sided pleural effusion now s/p chest tube placement. Patient was seen on morning rounds with her present. She is found resting in bed on supplemental oxygen via nasal cannula 3 L/min. She is not home O2 dependent. She is awake and A&O x4. She is tachypneic with shallow inspirations, and reports generalized chest discomfort described as burning. She denies cough. She is slightly anxious this morning. Sshe denies fever, chills, chest pain, abdominal pain, nausea vomiting or diarrhea. They have no other questions or concerns at this time. No concerns per nursing. Reason For Visit: RIGHT KNEE PAIN Physical Exam Vital Signs: Temp Pulse Resp BP Pulse Ox 97.8 F 65 24 H 101/50 L 93 05/27/19 08:00 05/27/19 08:05 05/27/19 08:05 05/27/19 08:00 05/27/19 08:05 Pulse Oximeter Nocturnal Start: 05/14/19 13:35 Freq: RTQ4 Status: Complete Protocol: Document 05/15/19 07:26 CMI (Rec: 05/15/19 07:27 CMI [id number]) Nocturnal Pulse Oximetry Equipment Usage Equipment Discontinued Continuous SpO2 Machine # 5 Intake & Output 05/26/19 05/27/19 05/28/19 06:59 06:59 06:59 Intake Total 6253 083 0283 Output Total 215 300 Balance 1381 -60 1000 Weight 100.4 kg 100 kg General appearance: PRESENT: no acute distress, cooperative, obese, well- developed, well-nourished Head exam: PRESENT: atraumatic, normocephalic Eye exam: PRESENT: conjunctiva pink, EOMI, PERRLA. ABSENT: scleral icterus Ear exam: PRESENT: normal external ear exam Mouth exam: PRESENT: moist, tongue midline Respiratory exam: PRESENT: decreased breath sounds - Right lung field, s ymmetrical, tachypnea, other - Supplemental oxygen by nasal cannula. ABSENT: rales, rhonchi, wheezes Cardiovascular exam: PRESENT: RRR, +S1, +S2. ABSENT: diastolic murmur, rubs, systolic murmur Pulses: PRESENT: normal dorsalis pedis pul Vascular exam: PRESENT: normal capillary refill GI/Abdominal exam: PRESENT: normal bowel sounds, soft. ABSENT: distended, guarding, mass, organolmegaly, rebound, tenderness Rectal exam: PRESENT: deferred Extremities exam: PRESENT: full ROM. ABSENT: calf tenderness, clubbing, pedal edema Neurological exam: PRESENT: alert, awake, oriented to person, oriented to place, oriented to time, oriented to situation, CN II-XII grossly intact. ABSENT: motor sensory deficit Psychiatric exam: PRESENT: appropriate affect, normal mood. ABSENT: homicidal ideation, suicidal ideation Skin exam: PRESENT: dry, intact, warm. ABSENT: cyanosis, rash Results Laboratory Results: 05/27/19 04:40 05/27/19 05/27/19 05/27/19 04:40 04:40 08:40 WBC 18.4 H RBC 3.16 L Hgb 9.5 L Hct 29.0 L MCV 92 MCH 30.0 MCHC 32.8 RDW 14.2 H Plt Count 82 L Carbonic Acid 1.17 HCO3/H2CO3 Ratio 18:1 ABG pH 7.37 ABG pCO2 38.9 ABG pO2 68.7 L ABG HCO3 22.0 ABG O2 Saturation 93.4 L ABG Base Excess -3.0 FiO2 3L Sodium 130.1 L Potassium 5.8 H Chloride 97 L Carbon Dioxide 26 Anion Gap 7 BUN 35 H Creatinine 2.49 H Est GFR ( Amer) 23 L Glucose 139 H Calcium 12.7 H* 05/08/19 05/15/19 12:26 17:15 Creatine Kinase 70 NT-Pro-B Natriuret Pep 594 H Impressions: Chest CT 05/15/19 18:00 IMPRESSION: Significant right pleural effusion with right lower lobe consolidation. Atelectasis versus pneumonia. Thyroid gland appears to be enlarged. Thyroid Ultrasound 05/16/19 08:00 IMPRESSION: Multinodular goiter as detailed above. Within the left lobe of thyroid gland there is a TR 3 nodule that measures approximately 1.5 cm. Thoracentesis Ultrasound 05/17/19 08:00 IMPRESSION: Successful ultrasound-guided placement of a 10 [employer] all-purpose drainage catheter into the fluid-filled right pleural space. Thoracentesis 05/20/19 00:00 IMPRESSION: SUCCESSFUL PLACEMENT OF A RIGHT SIDED CHEST TUBE USING CT GUIDANCE. Chest X-Ray 05/27/19 07:58 IMPRESSION: Rehydration versus progressing atelectasis or pneumonia in the right lung. No pneumothorax. Assessment and Plan - Diagnosis (1) SOLEDAD (acute kidney injury) Is this a current diagnosis for this admission?: Yes Plan: Recurrent. Likely prerenal secondary to hypotension and multiple medications (gabapentin, Celebrex, furosemide). IV fluid bolus by the payroll auditor. Continue maintenance IV fluids. Encourage p.o. fluids. Avoid nephrotoxic medications as able. Furosemide, gabapentin, Celebrex, and Requip all discontinued. Daily weights and strict I&O's. Monitor daily chemistries. (2) Malignant pleural effusion Is this a current diagnosis for this admission?: Yes Plan: Chest tube in place. Status post talc pleurodesis by Dr. Duarte. Pathology results confirm malignancy. Dr. Gutierrez is consulted; plans to start chemotherapy here. Medication is on order; should arrive on early next week. Prior plans to travel to [place] are now on hold indefinitely. Dr. Duarte is consulted; appreciate his assistance. May continue Xarelto per Dr. Cm. (3) Tachycardia Is this a current diagnosis for this admission?: Yes Plan: Resolved. -Patient was started on amiodarone 400 mg every 12 hours in the ICU. This was done as a means to address patient's episode of resilient junctional ectopic tachycardia in the 160s which was aggravated by patient's acute worsening hypoxia. The initial episode was recently ends to synchronized cardioversion x3 and only responded to amiodarone IV bolus. Discussed with Dr. Talavera Have discontinued amiodarone. Continue Toprol-XL; dose decreased secondary to hypotension. Continue lisinopril; dose decreased secondary to hypotension. Continue to monitor on telemetry. Limited echocardiogram demonstrated LVEF 60% with no definite wall motion abnormalities noted. (4) Diabetes Qualifiers: Diabetes mellitus type: type 2 Diabetes mellitus complication status: without complication Is this a current diagnosis for this admission?: Yes Plan: A1c 6.9% Poorly controlled on sliding scale alone. Improved blood sugars and appetite. We will discontinue IV fluids. Continue Accu-Cheks before meals and at bedtime with sliding scale insulin. Consistent carb diet. Registered dietitian and certified diabetes educator consulted. (5) HTN (hypertension) Is this a current diagnosis for this admission?: Yes Plan: Persistent low blood pressures today at present. Have decreased Toprol-XL, lisinopril Furosemide on hold secondary to acute kidney injury. (6) Lung cancer Qualifiers: Laterality: right Lung location: lower lobe of lung Qualified Code(s): C34.31 - Malignant neoplasm of lower lobe, right bronchus or lung Is this a current diagnosis for this admission?: Yes Plan: Chest imaging demonstrates the right lung mass (confirmed cancer by cytology) and osteolytic lesions to the right posterior lateral third rib. Oncology is consulted; primary management per Dr. Gutierrez. (7) Postobstructive pneumonia Is this a current diagnosis for this admission?: Yes Plan: In lieu of patient's persistent leukocytosis, cough and reported CT imaging of right lung consolidation, have opted to start treatment with Levaquin for 7 days for potential postobstructive pneumonia in the right lung. Blood cultures are negative. Sputum culture shows reduced normal ninoska Continue levofloxacin through May 27. (8) Reactive depression Is this a current diagnosis for this admission?: Yes Plan: Improved mood today. Interacting well with family, hospital staff members and myself. Patient is encouraged to continue consideration of starting antidepressant. (9) Subclinical hyperthyroidism Is this a current diagnosis for this admission?: Yes Plan: Thyroid ultrasound reveals multinodular goiter with largest nodule of about 1.5 cm. -Patient needs outpatient follow-up with an blanket winder helper. Continue with beta-jerica for now. (10) Hemarthrosis, right knee Is this a current diagnosis for this admission?: Yes Plan: s/p right knee lavage with synovectomy and meniscectomy on 05/10/2019. -Outpatient follow-up with Dr. Jacome (11) Acute respiratory failure Qualifiers: Respiratory failure complication: hypoxia and hypercapnia Qualified Code(s): J96.01 - Acute respiratory failure with hypoxia; J96.02 - Acute respiratory failure with hypercapnia Is this a current diagnosis for this admission?: Yes Plan: Resolved. Secondary to lung cancer on large right pleural effusion. Extubated on 05/17/2019. The ABG today is reassuring. (12) DVT (deep venous thrombosis) Qualifiers: DVT location: lower extremity Affected thrombotic vein of extremity: femoral Chronicity: acute Laterality: right Qualified Code(s): I82.411 - Acute embolism and thrombosis of right femoral vein Is this a current diagnosis for this admission?: Yes Plan: continue Xarelto. (13) Fever Is this a current diagnosis for this admission?: Yes Plan: Resolved (14) Neuropathy Is this a current diagnosis for this admission?: Yes Plan: Gabapentin discontinued secondary to SOLEDAD Sliding scale oxycodone with IV morphine for breakthrough pain. Heating pad. Continue working with physical therapy. (15) Cancer related pain Is this a current diagnosis for this admission?: Yes Plan: Sliding scale oxycodone with IV morphine for breakthrough pain. Heating pad. (16) Lung mass Is this a current diagnosis for this admission?: Yes Plan: As above Established with Dr. Gutierrez as an outpatient. (17) RLS (restless legs syndrome) Is this a current diagnosis for this admission?: Yes Plan: Requip discontinued secondary to SOLEDAD (18) Bone metastasis Is this a current diagnosis for this admission?: Yes Plan: Chest x-ray shows osteolytic lesion to the right third rib. Nursing has expressed concern that the patient's persistent bilateral lower extremity pain may be related to bone metastasis. We will discuss with oncology. (19) Hyperkalemia Is this a current diagnosis for this admission?: Yes Plan: Secondary to SOLEDAD. Received Kayexalate and lactulose overnight. Received aggressive IV fluid resuscitation. Follow-up chemistry pending. - Time Time Spent with patient: 35 or more minutes Medications reviewed and adjusted accordingly: Yes Anticipated discharge: Home with Homehealth
[2019-05-27 17:08] LABS: ANION GAP 6 (5-19); BLOOD UREA NITROGEN 43 mg/dL (7-20); CALCIUM 11.4 mg/dL (8.4-10.2); CARBON DIOXIDE 24 mmol/L (22-30); CHLORIDE 101 mmol/L (98-107); GLUCOSE 179 mg/dL (75-110); POTASSIUM 5.4 mmol/L (3.6-5.0)
--- NOTE | 2019-05-27 20:04 | EKG REPORT ---
SEVERITY:- ABNORMAL ECG - ACCELERATED JUNCTIONAL ESCAPE RHYTHM NONSPECIFIC INTRAVENTRICULAR CONDUCTION DELAY PROBABLE LVH WITH SECONDARY REPOL ABNRM : Confirmed by: Stephanie Shi MD 27-May-2019 20:03:57
[2019-05-28] MEDS: MORPHINE SULFATE 10 MG/ML INJ IV PRN ×4 (04:42→22:52)
[2019-05-28] MEDS: NORMAL SALINE 1000 ML 1,000 ML IV PRN ×2 (06:37→08:55)
[2019-05-28 07:05] LABS: HEMATOCRIT 26.5 % (36.0-47.0); HEMOGLOBIN 8.6 g/dL (12.0-15.5); MEAN CORPUSCULAR HEMOGLOBIN 29.9 pg (27.0-33.4); MEAN CORPUSCULAR HGB CONC 32.5 g/dL (32.0-36.0); MEAN CORPUSCULAR VOLUME 92 fl (80-97); RED BLOOD COUNT 2.89 10^6/uL (3.72-5.28); RED CELL DISTRIBUTION WIDTH 14.2 % (11.5-14.0); WHITE BLOOD COUNT 19.6 10^3/uL (4.0-10.5)
[2019-05-28 07:18] LABS: ANION GAP 5 (5-19); BLOOD UREA NITROGEN 39 mg/dL (7-20); CALCIUM 11.7 mg/dL (8.4-10.2); CARBON DIOXIDE 26 mmol/L (22-30); CHLORIDE 104 mmol/L (98-107); GLUCOSE 153 mg/dL (75-110); POTASSIUM 4.7 mmol/L (3.6-5.0)
[2019-05-28 07:59] LABS: PLATELET COUNT 66 10^3/uL (150-450)
[2019-05-28 08:06] LABS: ALBUMIN 2.4 g/dL (3.5-5.0); ALKALINE PHOSPHATASE 151 U/L (38-126); ASPARTATE AMINO TRANSFERASE 36 U/L (14-36); BILIRUBIN,DIRECT 0.3 mg/dL (0.0-0.4); BILIRUBIN,TOTAL 0.7 mg/dL (0.2-1.3)
[2019-05-28] MEDS ORDERED: CALCITONIN,SALMON,SYNTHETIC 400 UNIT/2 ML VIAL IM ONE (08:25)
[2019-05-28] MEDS ORDERED: DIGOXIN INJ 0.5 MG/2 ML AMPULE IV ONE (08:30)
--- NOTE | 2019-05-28 08:55 | RADIOLOGY REPORT (SQ) ---
EXAM DESCRIPTION: CHEST SINGLE VIEW COMPLETED DATE/TIME: 05/28/2019 8:44 am REASON FOR STUDY: chest pain, dyspnea COMPARISON: 05/27/2019 NUMBER OF VIEWS: One view. TECHNIQUE: Single frontal radiographic image of the chest acquired. LIMITATIONS: None. FINDINGS: LUNGS AND PLEURA: Stable appearance. Large right pleural effusion. No pneumothorax. MEDIASTINUM AND HILAR STRUCTURES: Stable heart size and mediastinal structures. HEART AND VASCULAR STRUCTURES: Stable appearance. SUPPORT DEVICES: Appropriate location without change. BONES: No acute findings. OTHER: No other significant finding. IMPRESSION: STABLE APPEARANCE OF THE CHEST. SUPPORT DEVICES UNCHANGED. TECHNICAL DOCUMENTATION: JOB ID: [id number] [employer]- All Rights Reserved Reading location - IP/workstation name: [email or web address]
[2019-05-28] MEDS: LEVALBUTEROL HCL NEB 1.25 MG/3 ML AMPUL NEB PRN (08:57)
[2019-05-28] MEDS: FAMOTIDINE 20 MG TABLET PO SCH ×2 (09:40→21:54)
[2019-05-28] MEDS: LISINOPRIL 10 MG TABLET PO SCH (09:40)
[2019-05-28] MEDS: MAGNESIUM OXIDE 400 MG TABLET PO SCH ×2 (09:40→18:33)
[2019-05-28] MEDS: RIVAROXABAN 10 MG TABLET PO SCH (09:41)
[2019-05-28] MEDS: METOPROLOL SUCCINATE 25 MG TAB.SR.24H PO SCH (09:41)
[2019-05-28] MEDS: LIDOCAINE 5% (700 MG) TRANSDERMAL ADH..PATCH TP SCH (09:42)
[2019-05-28] MEDS: INSULIN LISPRO 100 UNIT/ML 3 ML VIAL SUBCUT SCH ×4 (09:42→23:43)
[2019-05-28 10:58] LABS: APPEARANCE,URINE SLIGHTLY-CLOUDY; BILIRUBIN,URINE NEGATIVE (NEGATIVE); CALCIUM OXALATE CRYSTALS,URINE RARE /HPF; COLOR,URINE STRAW; GLUCOSE, URINE NEGATIVE (NEGATIVE); KETONES,URINE TRACE mg/dL (NEGATIVE); PROTEIN,URINE NEGATIVE (NEGATIVE); URINE SPECIFIC GRAVITY 1.009; UROBILINOGEN,URINE NEGATIVE mg/dL (<2.0)
--- NOTE | 2019-05-28 12:06 | EKG REPORT ---
SEVERITY:- ABNORMAL ECG - SINUS TACHYCARDIA REPOL ABNRM SUGGESTS ISCHEMIA, ANT-LAT LEADS : Confirmed by: Stephanie Shi MD 28-May-2019 12:05:15
[2019-05-28] MEDS: DIGOXIN INJ 0.5 MG/2 ML AMPULE IV SCH ×3 (12:37→23:44)
[2019-05-28] MEDS ORDERED: FUROSEMIDE INJ/PF 40 MG/4 ML SDV ONE (12:37)
[2019-05-28] MEDS ORDERED: FUROSEMIDE INJ/PF 40 MG/4 ML SDV IV ONE (12:37)
--- NOTE | 2019-05-28 12:38 | RADIOLOGY REPORT (SQ) ---
EXAM DESCRIPTION: CT CHEST WITHOUT COMPLETED DATE/TIME: 05/28/2019 12:23 pm REASON FOR STUDY: dyspnea, hypoxia COMPARISON: 05/15/2019 TECHNIQUE: CT scan performed of the chest without intravenous contrast. Images reviewed with lung, soft tissue and bone windows. Reconstructed coronal and sagittal MPR images reviewed. All images st ored on PACS. All CT scanners at this facility use dose modulation, iterative reconstruction, and/or weight based d osing when appropriate to reduce radiation dose to as low as reasonably achievable (ALARA). [facility]: Dose Right [facility]: CareDose [facility]: Dose Right [facility]: Teradose 4D [facility]: [employer] RADIATION DOSE: CT Rad equipment meets quality standard of care and radiation dose reduction techniq ues were employed. CTDIvol: 19.9 mGy. DLP: 714 mGy-cm. mGy. LIMITATIONS: No technical limitations. FINDINGS: LUNGS AND PLEURA: Right pleural effusion status post percutaneous chest tube placement or posterior approach. No significant change in volume. There is collapsed middle lobe right lower lob e and basal segment of the right upper lobe. Subsegmental airspace disease in the left lower lobe. HILAR AND MEDIASTINAL STRUCTURES: No identified masses or abnormal nodes. No obvious aneurysm. HEART AND VASCULAR STRUCTURES: No aneurysm. No pericardial effusion. UPPER ABDOMEN: No significant findings. Limited exam. THYROID AND OTHER SOFT TISSUES: No masses. No adenopathy. BONES: Multiple lytic lesions in the right ribs. HARDWARE: None in the chest. OTHER: No other significant findings. IMPRESSION: 1. Persistent right pleural effusion status post right chest tube placement. Persistent collapse of right lower lobe and middle lobe. No pneumothorax. 2. Developing airspace disease the left lower lobe may represent concurrent infection or aspiration. 3. Bone metastasis. TECHNICAL DOCUMENTATION: JOB ID: [id number] Quality ID # [id number]: Final reports with documentation of one or more dose reduction techniques (e.g., Au tomated exposure control, adjustment of the mA and/or kV according to patient size, use of iterative reconstruction technique) 2010 [employer]- All Rights Reserved Reading location - IP/workstation name: [email or web address]
--- NOTE | 2019-05-28 13:05 | PDOC PROGRESS REPORT ---
Subjective Progress Note for:: 05/28/19 Subjective:: The patient is a 64-year-old female with past medical history of hypertension, DM 2, obesity, lung cancer, and arthritis who was admitted to the orthopedic service. Hospitalist service consulted for tachycardia, SOLEDAD, medication management and subsequently developed acute respiratory failure w/ hypoxia and an accelerated junctional rhythm nonresponsive to adenosine x3 and cardioversion (100, 150, 200J). Ultimately, rate control achieved via amiodarone. Found to have large right sided pleural effusion now s/p chest tube placement. Patient was seen on morning rounds with her present. She is found resting in bed on supplemental oxygen via nasal cannula 3 L/min. She is not home O2 dependent. She is awake and A&O to self and place, but withdrew diso rdered thinking, picking at bed sheets and telemetry box, and speaking to family members were not present. The patient is not able to answer questions coherently. Per , she is progressively become more confused overnight. ROS is limited secondary to mental status. Discussed plan of care with ; will obtain CT imaging, trial medications to obtain improved heart rate control for symptomatic management prevention of hypotension, and discussed with racquet maker service for possible upgrade. Reason For Visit: RIGHT KNEE PAIN Physical Exam Vital Signs: Temp Pulse Resp BP Pulse Ox 97.4 F 119 H 20 119/50 L 94 05/28/19 08:52 05/28/19 08:57 05/28/19 08:57 05/28/19 08:52 05/28/19 08:57 Pulse Oximeter Nocturnal Start: 05/14/19 13:35 Freq: RTQ4 Status: Complete Protocol: Document 05/15/19 07:26 CMI (Rec: 05/15/19 07:27 CMI [id number]) Nocturnal Pulse Oximetry Equipment Usage Equipment Discontinued Continuous SpO2 Machine # 5 Intake & Output 05/27/19 05/28/19 05/29/19 06:59 06:59 06:59 Intake Total 240 3360 185 Output Total 300 750 Balance -60 2610 185 Weight 100 kg 99 kg General appearance: PRESENT: obese, well-developed, well-nourished, other - Moderate distress; encephalopathic Head exam: PRESENT: atraumatic, normocephalic Eye exam: PRESENT: conjunctiva pink, EOMI, PERRLA. ABSENT: scleral icterus Ear exam: PRESENT: normal external ear exam Mouth exam: PRESENT: dry mucosa, tongue midline Neck exam: ABSENT: carotid bruit, JVD, lymphadenopathy, thyromegaly Respiratory exam: PRESENT: accessory muscle use, decreased breath sounds - Absent right middle and lower lung durán, diminished right upper durán. Managed left lung durán. Poor inspiratory effort. Exam limited secondary to body habitus and positioning., tachypnea - Shallow, other - Chest tube right chest wall supplemental oxygen.. ABSENT: rales, rhonchi, wheezes Cardiovascular exam: PRESENT: RRR, +S1, +S2, tachycardia. ABSENT: diastolic murmur, rubs, systolic murmur Pulses: PRESENT: normal dorsalis pedis pul Vascular exam: PRESENT: normal capillary refill GI/Abdominal exam: PRESENT: normal bowel sounds, soft. ABSENT: distended, guarding, mass, organolmegaly, rebound, tenderness Rectal exam: PRESENT: deferred Gentrourinary exam: PRESENT: indwelling catheter Extremities exam: PRESENT: pedal edema - Trace bilaterally. ABSENT: calf tenderness, clubbing Neurological exam: PRESENT: alert, awake, oriented to person, oriented to place, CN II-XII grossly intact. ABSENT: motor sensory deficit Psychiatric exam: PRESENT: anxious, appropriate affect, normal mood Skin exam: PRESENT: dry, intact, warm. ABSENT: cyanosis, rash Results Laboratory Results: 05/28/19 06:30 05/28/19 06:30 05/27/19 05/27/19 05/28/19 12:00 16:15 06:30 WBC 19.6 H RBC 2.89 L Hgb 8.6 L Hct 26.5 L MCV 92 MCH 29.9 MCHC 32.5 RDW 14.2 H Plt Count 66 L Sodium Cancelled 131.1 L Potassium Cancelled 5.4 H Chloride Cancelled 101 Carbon Dioxide Cancelled 24 Anion Gap Cancelled 6 BUN Cancelled 43 H Creatinine Cancelled 2.37 H Est GFR ( Amer) Cancelled 25 L Est GFR (Non-Af Amer) Cancelled Glucose Cancelled 179 H Calcium Cancelled 11.4 H Phosphorus Total Bilirubin AST Alkaline Phosphatase Total Protein Albumin Urine Color Urine Appearance Urine pH Ur Specific [place] Urine Protein Urine Glucose (UA) Urine Ketones Urine Blood Urine RBC (Auto) 05/28/19 05/28/19 05/28/19 06:30 06:30 06:30 WBC RBC Hgb Hct MCV MCH MCHC RDW Plt Count Sodium 134.8 L Potassium 4.7 Chloride 104 Carbon Dioxide 26 Anion Gap 5 BUN 39 H Creatinine 1.66 H Est GFR ( Amer) 38 L Est GFR (Non-Af Amer) Glucose 153 H Calcium 11.7 H Phosphorus 4.1 Total Bilirubin Cancelled 0.7 AST Cancelled 36 Alkaline Phosphatase Cancelled 151 H Total Protein Cancelled 5.0 L Albumin Cancelled 2.4 L Urine Color Urine Appearance Urine pH Ur Specific [place] Urine Protein Urine Glucose (UA) Urine Ketones Urine Blood Urine RBC (Auto) 05/28/19 10:30 WBC RBC Hgb Hct MCV MCH MCHC RDW Plt Count Sodium Potassium Chloride Carbon Dioxide Anion Gap BUN Creatinine Est GFR ( Amer) Est GFR (Non-Af Amer) Glucose Calcium Phosphorus Total Bilirubin AST Alkaline Phosphatase Total Protein Albumin Urine Color STRAW Urine Appearance SLIGHTLY-CLOUDY Urine pH 5.0 Ur Specific [place] 1.009 Urine Protein NEGATIVE Urine Glucose (UA) NEGATIVE Urine Ketones TRACE H Urine Blood MODERATE H Urine RBC (Auto) 66 05/08/19 05/15/19 12:26 17:15 Creatine Kinase 70 NT-Pro-B Natriuret Pep 594 H Impressions: Thyroid Ultrasound 05/16/19 08:00 IMPRESSION: Multinodular goiter as detailed above. Within the left lobe of thyroid gland there is a TR 3 nodule that measures approximately 1.5 cm. Thoracentesis Ultrasound 05/17/19 08:00 IMPRESSION: Successful ultrasound-guided placement of a 10 Greek all-purpose drainage catheter into the fluid-filled right pleural space. Thoracentesis 05/20/19 00:00 IMPRESSION: SUCCESSFUL PLACEMENT OF A RIGHT SIDED CHEST TUBE USING CT GUIDANCE. Chest CT 05/28/19 00:00 IMPRESSION: 1. Persistent right pleural effusion status post right chest tube placement. Persistent collapse of right lower lobe and middle lobe. No pneumothorax. 2. Developing airspace disease the left lower lobe may represent concurrent infection or aspiration. 3. Bone metastasis. Chest X-Ray 05/28/19 00:00 IMPRESSION: STABLE APPEARANCE OF THE CHEST. SUPPORT DEVICES UNCHANGED. Assessment and Plan - Diagnosis (1) Acute respiratory failure Qualifiers: Respiratory failure complication: hypoxia and hypercapnia Qualified Code(s): J96.01 - Acute respiratory failure with hypoxia; J96.02 - Acute respiratory failure with hypercapnia Is this a current diagnosis for this admission?: Yes Plan: Recurrent. Secondary to lung cancer on large right pleural effusion. Intubated 05/15/2019. Extubated on 05/17/2019. The ABG yesterday was reassuring. However, the patient continues to have tachypnea with shallow respirations, accessory muscle use, and now persistent tachycardia. Chest x-ray shows large right pleural effusion without pneumothorax. Dr. Duarte was at the bedside this morning to assess chest tube. Decreased output; believes to be removed may be able to remove chest tube tomorrow. Follow-up chest CT imaging shows persistent right pleural effusion with persistent collapse of the right lower and middle lobes without pneumothorax developing airspace disease to the left lower lobe and bone metastasis. Spoke with Dr. Ordonez who did a [id number] assessment and reviewed CT imaging. Patient is upgraded to the ICU. Dr. Sands will come and meet with family this afternoon to discuss care options. (2) SOLEDAD (acute kidney injury) Is this a current diagnosis for this admission?: Yes Plan: Recurrent. Improved creatinine and BUN today. Hyperkalemia has resolved. Hypercalcemia is worsened. Likely prerenal secondary to hypotension and multiple medications (gabapentin, Celebrex, furosemide). Continue maintenance IV fluids. Encourage p.o. fluids. Avoid nephrotoxic medications as able. Furosemide, gabapentin, Celebrex, and Requip all discontinued. Daily weights and strict I&O's. Christian catheter for strict monitoring. Monitor daily chemistries. (3) Malignant pleural effusion Is this a current diagnosis for this admission?: Yes Plan: Chest tube in place. Status post talc pleurodesis by Dr. Duarte. Pathology results confirm malignancy. Dr. Gutierrez is consulted; plans to start chemotherapy here. Medication is on order; should arrive on early next week. Prior plans to travel to [place] are now on hold indefinitely. Dr. Duarte is consulted; appreciate his assistance. May continue Xarelto per Dr. Cm. (4) Tachycardia Is this a current diagnosis for this admission?: Yes Plan: Recurrent. -Previously, the patient was started on amiodarone 400 mg every 12 hours in the ICU. This was done as a means to address patient's episode of resilient junctional ectopic tachycardia in the 160s which was aggravated by patient's acute worsening hypoxia. The initial episode was recently ends to synchronized cardioversion x3 and only responded to amiodarone IV bolus. Discussed with Dr. Talavera; Have discontinued amiodarone due to poor lung function. Continue Toprol-XL; dose decreased secondary to hypotension. Continue to monitor on telemetry. Limited echocardiogram demonstrated LVEF 60% with no definite wall motion abnormalities noted. Today the patient's heart rate was noted to have increased 120 and throughout the morning shift gradually trended upward. Patient was provided IV digoxin 0.125 mg x [address] Chest to evaluate for pulmonary causes pending; personal review demonstrates worsening malignancy, pleural effusion, lymphangitic spread versus pulmonary edema. (5) Diabetes Qualifiers: Diabetes mellitus type: type 2 Diabetes mellitus complication status: without complication Is this a current diagnosis for this admission?: Yes Plan: A1c 6.9% Continue Accu-Cheks before meals and at bedtime with sliding scale insulin. Consistent carb diet. Registered dietitian and family living educator consulted. (6) HTN (hypertension) Is this a current diagnosis for this admission?: Yes Plan: Persistent low blood pressures Have decreased Toprol-XL and lisinopril Furosemide on hold secondary to acute kidney injury. (7) Lung cancer Qualifiers: Laterality: right Lung location: lower lobe of lung Qualified Code(s): C34.31 - Malignant neoplasm of lower lobe, right bronchus or lung Is this a current diagnosis for this admission?: Yes Plan: Chest imaging demonstrates the right lung mass (confirmed cancer by cytology) and osteolytic lesions to the right posterior lateral third rib. Oncology is consulted; primary management per Dr. Gutierrez. CT Chest report pending; initial review shows increased malignancy. Spoke with Dr. Sands; she will come in to meet with the patient's family members to discuss options. (8) Postobstructive pneumonia Is this a current diagnosis for this admission?: Yes Plan: In lieu of patient's persistent leukocytosis, cough and reported CT imaging of right lung consolidation, have opted to start treatment with Levaquin for 7 days for potential postobstructive pneumonia in the right lung. Blood cultures are negative. Sputum culture shows reduced normal ninoska Received 7-day course of Levaquin. (9) Reactive depression Is this a current diagnosis for this admission?: Yes Plan: Improved mood today. Interacting well with family, hospital staff members and myself. Patient is encouraged to continue consideration of starting antidepressant. (10) Subclinical hyperthyroidism Is this a current diagnosis for this admission?: Yes Plan: Thyroid ultrasound reveals multinodular goiter with largest nodule of about 1.5 cm. -Patient needs outpatient follow-up with an cribber. Continue with beta-jerica for now. (11) Hemarthrosis, right knee Is this a current diagnosis for this admission?: Yes Plan: s/p right knee lavage with synovectomy and meniscectomy on 05/10/2019. -Outpatient follow-up with Dr. Jacome (12) DVT (deep venous thrombosis) Qualifiers: DVT location: lower extremity Affected thrombotic vein of extremity: femoral Chronicity: acute Laterality: right Qualified Code(s): I82.411 - Acute embolism and thrombosis of right femoral vein Is this a current diagnosis for this admission?: Yes Plan: continue Xarelto. (13) Fever Is this a current diagnosis for this admission?: Yes Plan: Resolved (14) Neuropathy Is this a current diagnosis for this admission?: Yes Plan: Gabapentin discontinued secondary to SOLEDAD Sliding scale oxycodone with IV morphine for breakthrough pain. Heating pad. Continue working with physical therapy. (15) Cancer related pain Is this a current diagnosis for this admission?: Yes Plan: Sliding scale oxycodone with IV morphine for breakthrough pain. Heating pad. (16) Lung mass Is this a current diagnosis for this admission?: Yes Plan: As above Established with Dr. Gutierrez as an outpatient. (17) Bone metastasis Is this a current diagnosis for this admission?: Yes Plan: Chest x-ray shows osteolytic lesion to the right third rib. Nursing has expressed concern that the patient's persistent bilateral lower extremity pain may be related to bone metastasis. NM Bone scan scheduled for Wednesday. (18) Hyperkalemia Is this a current diagnosis for this admission?: Yes Plan: Resolved. Secondary to SOLEDAD. Received Kayexalate and lactulose overnight. Received aggressive IV fluid resuscitation. (19) Hypercalcemia Is this a current diagnosis for this admission?: Yes Plan: Likely secondary to bone metastasis. Increased IV fluids. Christian catheter for strict I's and O's. Calcitonin x1. Follow-up calcium and albumin pending. (20) Acute encephalopathy Is this a current diagnosis for this admission?: Yes Plan: Secondary to #1, SOLEDAD, Hypercalcemia Management as above - Time Time Spent with patient: 35 or more minutes Medications reviewed and adjusted accordingly: Yes
--- NOTE | 2019-05-28 13:18 | CRITICAL CARE ADMISSION REPORT ---
HPI Date:: 05/28/19 Time:: 12:15 Reason for ICU Reason:: Increased WOB, acute respiratory faiure, Lung cancer. Hypercalcemia HPI: This patient is a well known patient from a previous ICU admission for respiratory failure and intubation for a malignant R pleural effussion. Since then she has had chest tube drainage and a talc pleurodesis. She has had increased WOB, dyspnea increasing over the last 24 hours. She is also inST at 130/min. She is moved to the ICU. CT of chst shows a collapsed RLL and RML. Some airspace disease in the LLL as well. This may be edema, aspiration less likely lymphangitic spread. Will try Lasix and bipap and small doses of morphine to cla m her. Heart rate like a product of pulmonary status. History obtained from:: Pt, medical stff and records - Diagnosis/Plan (1) Acute respiratory failure Qualifiers: Qualified Code(s): J96.01 - Acute respiratory failure with hypoxia; J96.02 - Acute respiratory failure with hypercapnia Is this a current diagnosis for this admission?: Yes Plan: The second time she has been here in the ICU. Her WOB is in danger of intubation on the basis of fatigue. (2) Lung cancer Qualifiers: Qualified Code(s): C34.31 - Malignant neoplasm of lower lobe, right bronchus or lung Is this a current diagnosis for this admission?: Yes Plan: She is to start CTX tomorrow. She will likely be too sick. (3) Tachycardia Is this a current diagnosis for this admission?: Yes Plan: Again secondary to breathing difficulties. (4) DVT (deep venous thrombosis) Qualifiers: Qualified Code(s): I82.411 - Acute embolism and thrombosis of right femoral vein Is this a current diagnosis for this admission?: Yes (5) Diabetes Is this a current diagnosis for this admission?: Yes Plan: Contolled (6) Leukocytosis Qualifiers: Qualified Code(s): D72.829 - Elevated white blood cell count, unspecified Is this a current diagnosis for this admission?: Yes Plan: No sign of infection, but stress and possible aspiration are possible sources. - . Plan Summary: If lasix and bipap are not effective may have too intubate. Past Medical History Cardiac Medical History: Reports: DVT, Hypertension EENT Medical History: Reports: Other - Right lower extremity deep venous thrombosis Endocrine Medical History: Reports: Diabetes Mellitus Type 2, Obesity Renal/ Medical History: Reports: None Malignancy Medical History: Reports: Lung Cancer GI Medical History: Reports: None Musculoskeltal Medical History: Reports: Arthritis Psychiatric Medical History: Denies: Depression Hematology: Reports: Other - Right lower extremity deep venous thrombosis Past Surgical History Past Surgical History: Reports: Cholecystectomy, Hysterectomy, Orthopedic Surgery - Right knee arthroscopic Social/Family History - Social History Lives with: Family Smoking Status: Former Smoker Frequency of Alcohol Use: None Hx Recreational Drug Use: No Drugs: None Hx Prescription Drug Abuse: No - Medication/Allergies Home Medications: Celecoxib [Celebrex 200 mg Capsule] 200 mg PO Q12 05/08/19 Furosemide [Lasix 40 mg Tablet] 40 mg PO DAILY 05/08/19 Gabapentin [Neurontin] 600 mg PO Q8 05/08/19 Glimepiride [Amaryl 4 mg Tablet] 4 mg PO BID 05/08/19 Linaclotide [Linzess 145 Mcg Capsule] 145 mcg PO DAILY 05/08/19 Metformin HCl [Metformin HCl ER] 1,000 mg PO BIDBS 05/08/19 Oxycodone HCl [Oxy-Ir 5 mg Tablet] 10 mg PO Q8HP PRN 05/08/19 Oxycodone HCl/Acetaminophen [Oxycodone-Acetaminophen 10-325] 1 tab PO Q8HP PRN 05/08/19 Ranitidine HCl [Zantac] 150 mg PO BID 05/08/19 Rivaroxaban [Xarelto] 20 mg PO BID 05/08/19 Valsartan/Hydrochlorothiazide [Valsartan-Hctz 160-12.5 mg Tab] 1 tab PO DAILY 05/08/19 Acetaminophen [Tylenol 325 mg Tablet] 650 mg PO Q6HP PRN tablet 05/15/19 Metoprolol Tartrate [Lopressor 25 mg Tablet] 25 mg PO Q12 #60 tablet 05/15/19 Polyethylene Glycol 3350 [Miralax Powder 17 gm/Packet] 17 gm PO DAILY powd.pack 05/15/19 Allergies/Adverse Reactions: iodine Allergy (Verified 03/25/19 15:37) Review of Systems Constitutional: PRESENT: fatigue, weakness Eyes: ABSENT: visual disturbances Ears: ABSENT: hearing changes Cardiovascular: ABSENT: chest pain, dyspnea on exertion, edema, orthropnea, palpitations Respiratory: PRESENT: dyspnea, sputum, other - Increased WOB Gastrointestinal: ABSENT: abdominal pain, constipation, diarrhea, hematemesis, hematochezia, nausea, vomiting Musculoskeletal: PRESENT: other - Still having knee pain from arthroscopy. Neurological: PRESENT: confusion Psychiatric: PRESENT: anxiety Endocrine: ABSENT: cold intolerance, heat intolerance, polydipsia, polyuria Hematologic/Lymphatic: ABSENT: easy bleeding, easy bruising Physical Exam Vital Signs: Temp Pulse Resp BP Pulse Ox 97.4 F 119 H 20 119/50 L 94 05/28/19 08:52 05/28/19 08:57 05/28/19 08:57 05/28/19 08:52 05/28/19 08:57 Pulse Oximeter Nocturnal Start: 05/14/19 13:35 Freq: RTQ4 Status: Complete Protocol: Document 05/15/19 07:26 CMI (Rec: 05/15/19 07:27 CMI [id number]) Nocturnal Pulse Oximetry Equipment Usage Equipment Discontinued Continuous SpO2 Machine # 5 Intake & Output 05/27/19 05/28/19 05/29/19 06:59 06:59 06:59 Intake Total 240 3360 185 Output Total 300 750 Balance -60 2610 185 Weight 100 kg 99 kg Weight/Height Weight 99 kg Height 5 ft 10 in General appearance: PRESENT: disheveled, severe distress Head exam: PRESENT: atraumatic, normocephalic Eye exam: PRESENT: conjunctiva pink, EOMI, PERRLA. ABSENT: scleral icterus Ear exam: PRESENT: normal external ear exam Mouth exam: PRESENT: moist, tongue midline Respiratory exam: PRESENT: accessory muscle use, crackles, decreased breath sounds, retraction, rhonchi, tachypnea, other - R chest tube. Cardiovascular exam: PRESENT: tachycardia GI/Abdominal exam: PRESENT: normal bowel sounds, soft. ABSENT: distended, guarding, mass, organolmegaly, rebound, tenderness Neurological exam: PRESENT: altered, awake, oriented to person, oriented to place Psychiatric exam: PRESENT: agitated Skin exam: PRESENT: dry, intact, warm. ABSENT: cyanosis, rash Tubes/Lines: PRESENT: Chest Tube, Central Line Laboratory/Radiographs Laboratory Results: 05/28/19 06:30 05/28/19 06:30 05/27/19 05/27/19 05/28/19 12:00 16:15 06:30 WBC 19.6 H RBC 2.89 L Hgb 8.6 L Hct 26.5 L MCV 92 MCH 29.9 MCHC 32.5 RDW 14.2 H Plt Count 66 L Sodium Cancelled 131.1 L Potassium Cancelled 5.4 H Chloride Cancelled 101 Carbon Dioxide Cancelled 24 Anion Gap Cancelled 6 BUN Cancelled 43 H Creatinine Cancelled 2.37 H Est GFR ( Amer) Cancelled 25 L Est GFR (Non-Af Amer) Cancelled Glucose Cancelled 179 H Calcium Cancelled 11.4 H Phosphorus Total Bilirubin AST Alkaline Phosphatase Total Protein Albumin Urine Color Urine Appearance Urine pH Ur Specific [place] Urine Protein Urine Glucose (UA) Urine Ketones Urine Blood Urine RBC (Auto) 05/28/19 05/28/19 05/28/19 06:30 06:30 06:30 WBC RBC Hgb Hct MCV MCH MCHC RDW Plt Count Sodium 134.8 L Potassium 4.7 Chloride 104 Carbon Dioxide 26 Anion Gap 5 BUN 39 H Creatinine 1.66 H Est GFR ( Amer) 38 L Est GFR (Non-Af Amer) Glucose 153 H Calcium 11.7 H Phosphorus 4.1 Total Bilirubin Cancelled 0.7 AST Cancelled 36 Alkaline Phosphatase Cancelled 151 H Total Protein Cancelled 5.0 L Albumin Cancelled 2.4 L Urine Color Urine Appearance Urine pH Ur Specific [place] Urine Protein Urine Glucose (UA) Urine Ketones Urine Blood Urine RBC (Auto) 05/28/19 10:30 WBC RBC Hgb Hct MCV MCH MCHC RDW Plt Count Sodium Potassium Chloride Carbon Dioxide Anion Gap BUN Creatinine Est GFR ( Amer) Est GFR (Non-Af Amer) Glucose Calcium Phosphorus Total Bilirubin AST Alkaline Phosphatase Total Protein Albumin Urine Color STRAW Urine Appearance SLIGHTLY-CLOUDY Urine pH 5.0 Ur Specific [place] 1.009 Urine Protein NEGATIVE Urine Glucose (UA) NEGATIVE Urine Ketones TRACE H Urine Blood MODERATE H Urine RBC (Auto) 66 05/08/19 05/15/19 12:26 17:15 Creatine Kinase 70 NT-Pro-B Natriuret Pep 594 H Impressions: Thyroid Ultrasound 05/16/19 08:00 IMPRESSION: Multinodular goiter as detailed above. Within the left lobe of thyroid gland there is a TR 3 nodule that measures approximately 1.5 cm. Thoracentesis Ultrasound 05/17/19 08:00 IMPRESSION: Successful ultrasound-guided placement of a 10 English all-purpose drainage catheter into the fluid-filled right pleural space. Thoracentesis 05/20/19 00:00 IMPRESSION: SUCCESSFUL PLACEMENT OF A RIGHT SIDED CHEST TUBE USING CT GUIDANCE. Chest CT 05/28/19 00:00 IMPRESSION: 1. Persistent right pleural effusion status post right chest tube placement. Persistent collapse of right lower lobe and middle lobe. No pneumothorax. 2. Developing airspace disease the left lower lobe may represent concurrent infection or aspiration. 3. Bone metastasis. Chest X-Ray 05/28/19 00:00 IMPRESSION: STABLE APPEARANCE OF THE CHEST. SUPPORT DEVICES UNCHANGED. All labs, radiographs, diagnostic studies and EKGs were personally reviewed: Yes In addition, reports of radiographic and diagnostic studies were read: Yes Critical Time Critical Time (minutes): 40 -: The care of a critically ill patient is dynamic. This note represents a static moment in the admission process. orders and treatments may be given simulataneously and urgentl, and time is not financial services sales representative of the treatment process. This patient requires Critical Care secondary to life threating organ or limb dysfunction. Without the need for Critical Care services, the patient is at risk for increasid mortality and morbidity.
[2019-05-28] MEDS ORDERED: MORPHINE SULFATE 10 MG/ML INJ IV ONE (13:53)
--- NOTE | 2019-05-28 14:00 | PDOC PROGRESS REPORT ---
Subjective Progress Note for:: 05/28/19 Subjective:: I was called in today to speak with family and update them about change in patient's status. Patient during CT chest became increasingly anxious, confused, and tachypnic. She is now in ICU on CPAP. CT scan shows continued collapse of the lung lobe. Family reports that she has been much more confused, having hallucinations, restless, and combative. Reason For Visit: RIGHT KNEE PAIN Physical Exam Vital Signs: Temp Pulse Resp BP Pulse Ox 99.6 F 130 H 23 H 150/79 H 96 05/28/19 12:00 05/28/19 12:00 05/28/19 13:13 05/28/19 12:00 05/28/19 13:13 Pulse Oximeter Nocturnal Start: 05/14/19 13:35 Freq: RTQ4 Status: Complete Protocol: Document 05/15/19 07:26 CMI (Rec: 05/15/19 07:27 CMI [email or web address]) Nocturnal Pulse Oximetry Equipment Usage Equipment Discontinued Continuous SpO2 Machine # 5 Intake & Output 05/27/19 05/28/19 05/29/19 06:59 06:59 06:59 Intake Total 240 3360 185 Output Total 300 750 Balance -60 2610 185 Weight 100 kg 99 kg General appearance: PRESENT: mild distress, obese Head exam: PRESENT: normocephalic Eye exam: PRESENT: EOMI Mouth exam: PRESENT: other - BiPAP in place. Respiratory exam: PRESENT: decreased breath sounds - right side, tachypnea Cardiovascular exam: PRESENT: tachycardia Neurological exam: ABSENT: oriented to person, oriented to place, oriented to time, oriented to situation Psychiatric exam: PRESENT: agitated, anxious Skin exam: PRESENT: other - echymoses over arms. Results Laboratory Results: 05/28/19 06:30 05/28/19 06:30 05/27/19 05/27/19 05/28/19 12:00 16:15 06:30 WBC 19.6 H RBC 2.89 L Hgb 8.6 L Hct 26.5 L MCV 92 MCH 29.9 MCHC 32.5 RDW 14.2 H Plt Count 66 L Sodium Cancelled 131.1 L Potassium Cancelled 5.4 H Chloride Cancelled 101 Carbon Dioxide Cancelled 24 Anion Gap Cancelled 6 BUN Cancelled 43 H Creatinine Cancelled 2.37 H Est GFR ( Amer) Cancelled 25 L Est GFR (Non-Af Amer) Cancelled Glucose Cancelled 179 H Calcium Cancelled 11.4 H Phosphorus Total Bilirubin AST Alkaline Phosphatase Total Protein Albumin Urine Color Urine Appearance Urine pH Ur Specific [place] Urine Protein Urine Glucose (UA) Urine Ketones Urine Blood Urine RBC (Auto) 05/28/19 05/28/19 05/28/19 06:30 06:30 06:30 WBC RBC Hgb Hct MCV MCH MCHC RDW Plt Count Sodium 134.8 L Potassium 4.7 Chloride 104 Carbon Dioxide 26 Anion Gap 5 BUN 39 H Creatinine 1.66 H Est GFR ( Amer) 38 L Est GFR (Non-Af Amer) Glucose 153 H Calcium 11.7 H Phosphorus 4.1 Total Bilirubin Cancelled 0.7 AST Cancelled 36 Alkaline Phosphatase Cancelled 151 H Total Protein Cancelled 5.0 L Albumin Cancelled 2.4 L Urine Color Urine Appearance Urine pH Ur Specific [place] Urine Protein Urine Glucose (UA) Urine Ketones Urine Blood Urine RBC (Auto) 05/28/19 10:30 WBC RBC Hgb Hct MCV MCH MCHC RDW Plt Count Sodium Potassium Chloride Carbon Dioxide Anion Gap BUN Creatinine Est GFR ( Amer) Est GFR (Non-Af Amer) Glucose Calcium Phosphorus Total Bilirubin AST Alkaline Phosphatase Total Protein Albumin Urine Color STRAW Urine Appearance SLIGHTLY-CLOUDY Urine pH 5.0 Ur Specific [place] 1.009 Urine Protein NEGATIVE Urine Glucose (UA) NEGATIVE Urine Ketones TRACE H Urine Blood MODERATE H Urine RBC (Auto) 66 05/08/19 05/15/19 12:26 17:15 Creatine Kinase 70 NT-Pro-B Natriuret Pep 594 H Impressions: Thyroid Ultrasound 05/16/19 08:00 IMPRESSION: Multinodular goiter as detailed above. Within the left lobe of thyroid gland there is a TR 3 nodule that measures approximately 1.5 cm. Thoracentesis Ultrasound 05/17/19 08:00 IMPRESSION: Successful ultrasound-guided placement of a 10 Iranian all-purpose drainage catheter into the fluid-filled right pleural space. Thoracentesis 05/20/19 00:00 IMPRESSION: SUCCESSFUL PLACEMENT OF A RIGHT SIDED CHEST TUBE USING CT GUIDANCE. Chest CT 05/28/19 00:00 IMPRESSION: 1. Persistent right pleural effusion status post right chest tube placement. Persistent collapse of right lower lobe and middle lobe. No pneumothorax. 2. Developing airspace disease the left lower lobe may represent concurrent infection or aspiration. 3. Bone metastasis. Chest X-Ray 05/28/19 00:00 IMPRESSION: STABLE APPEARANCE OF THE CHEST. SUPPORT DEVICES UNCHANGED. Assessment & Plan - Diagnosis (1) Lung cancer Qualifiers: Laterality: right Lung location: lower lobe of lung Qualified Code(s): C34.31 - Malignant neoplasm of lower lobe, right bronchus or lung Is this a current diagnosis for this admission?: Yes Plan: Targeted chemo oral agent has been ordered, but has not yet arrived. I discussed with family the fact that if patient is intubated, she may not be able to receive active treatment for the cancer. Even if she is able to start chemo, it may take 6-8 weeks to see any effect. I discussed code status with the family as well as option for palliative care only. They would like to discuss with the rest of the family and make this decision. We discussed the severity of the situation at length. (2) Acute respiratory failure Qualifiers: Respiratory failure complication: hypoxia and hypercapnia Qualified Code(s): J96.01 - Acute respiratory failure with hypoxia; J96.02 - Acute respiratory failure with hypercapnia Is this a current diagnosis for this admission?: Yes Plan: On Bi-PAP with chest tube in place. Dr. Duarte working with the chest tube. (3) DVT (deep venous thrombosis) Qualifiers: DVT location: lower extremity Affected thrombotic vein of extremity: femoral Chronicity: acute Laterality: right Qualified Code(s): I82.411 - Acute embolism and thrombosis of right femoral vein Is this a current diagnosis for this admission?: Yes Plan: On xarelto, but now with evidence of bleeding, as per Dr. Duarte. I will hold Xarelto for now. (4) Morbid obesity Is this a current diagnosis for this admission?: Yes (5) SOLEDAD (acute kidney injury) Is this a current diagnosis for this admission?: Yes Plan: Her Cr is a bit higher. She is being given Lasix. (6) Hypercalcemia Is this a current diagnosis for this admission?: Yes Plan: But her Alb is low, so corrected calcium is not terribly elevated. If family elects aggressive treatment and she has not yet had a bisphosphonate during this admission, this should be considered, with bone mets, hypercalcemia, etc. I orquidea l wait to see what decisions are made in the next 24 hours. - Time Time Spent with patient: 25-34 minutes - Plan Summary Plan Summary: I will be available at any time, please call if needed. Patient was discussed with Hydraulic Corrugating Machine Operator, as well as Dr. Duarte. Please call me if needed. Dr. Gutierrez will return tomorrow morning.
[2019-05-28 16:14] LABS: ALBUMIN 2.4 g/dL (3.5-5.0)
[2019-05-28] MEDS ORDERED: DIGOXIN INJ 0.5 MG/2 ML AMPULE IV SCH (18:00)
--- NOTE | 2019-05-28 20:30 | PDOC PROGRESS REPORT ---
Subjective Progress Note for:: 05/28/19 Subjective:: 64-year-old female with stage IV lung cancer, malignant pleural effusion, and now a pleurocutaneous fistula. The patient denies fevers, chills, abdominal pain. She reports shortness of breath this am. She is somewhat confused today. Her work of breathing steadily increased throughout the day, and she was transferred to the ICU for closer monitoring. Reason For Visit: RIGHT KNEE PAIN Physical Exam Vital Signs: Temp Pulse Resp BP Pulse Ox 100.9 F H 116 H 15 107/65 100 05/28/19 19:24 05/28/19 18:00 05/28/19 18:13 05/28/19 18:13 05/28/19 18:13 Pulse Oximeter Nocturnal Start: 05/14/19 13:35 Freq: RTQ4 Status: Complete Protocol: Document 05/15/19 07:26 CMI (Rec: 05/15/19 07:27 CMI [email or web address]) Nocturnal Pulse Oximetry Equipment Usage Equipment Discontinued Continuous SpO2 Machine # 5 Intake & Output 05/27/19 05/28/19 05/29/19 06:59 06:59 06:59 Intake Total 240 3360 185 Output Total 141 180 7877 Balance -60 2610 -2635 Weight 100 kg 99 kg General appearance: PRESENT: obese Head exam: PRESENT: atraumatic, normocephalic Eye exam: PRESENT: EOMI, PERRLA. ABSENT: scleral icterus Mouth exam: PRESENT: moist, neck supple Neck exam: ABSENT: tenderness, thyromegaly, tracheal deviation Respiratory exam: PRESENT: tachypnea, other - decreased BS on right, coarse BS on left. Small caliber posterior chest tube in place. No air leak. Cardiovascular exam: PRESENT: tachycardia GI/Abdominal exam: PRESENT: soft. ABSENT: distended, guarding, tenderness Extremities exam: ABSENT: clubbing Musculoskeletal exam: ABSENT: deformity Neurological exam: PRESENT: awake, oriented to person, CN II-XII grossly intact. ABSENT: oriented to place, oriented to time, oriented to situation Psychiatric exam: PRESENT: agitated, anxious Focused psych exam: PRESENT: delusional, restlessness Skin exam: ABSENT: erythema, jaundice Results Laboratory Results: 05/28/19 06:30 05/28/19 06:30 05/28/19 05/28/19 05/28/19 06:30 06:30 06:30 WBC 19.6 H RBC 2.89 L Hgb 8.6 L Hct 26.5 L MCV 92 MCH 29.9 MCHC 32.5 RDW 14.2 H Plt Count 66 L Sodium 134.8 L Potassium 4.7 Chloride 104 Carbon Dioxide 26 Anion Gap 5 BUN 39 H Creatinine 1.66 H Est GFR ( Amer) 38 L Glucose 153 H Calcium 11.7 H Phosphorus 4.1 Total Bilirubin Cancelled AST Cancelled Alkaline Phosphatase Cancelled Total Protein Cancelled Albumin Cancelled Urine Color Urine Appearance Urine pH Ur Specific [place] Urine Protein Urine Glucose (UA) Urine Ketones Urine Blood Urine RBC (Auto) 05/28/19 05/28/19 05/28/19 06:30 10:30 15:35 WBC RBC Hgb Hct MCV MCH MCHC RDW Plt Count Sodium Potassium Chloride Carbon Dioxide Anion Gap BUN Creatinine Est GFR ( Amer) Glucose Calcium 11.0 H Phosphorus Total Bilirubin 0.7 AST 36 Alkaline Phosphatase 151 H Total Protein 5.0 L Albumin 2.4 L 2.4 L Urine Color STRAW Urine Appearance SLIGHTLY-CLOUDY Urine pH 5.0 Ur Specific [place] 1.009 Urine Protein NEGATIVE Urine Glucose (UA) NEGATIVE Urine Ketones TRACE H Urine Blood MODERATE H Urine RBC (Auto) 66 05/08/19 05/15/19 12:26 17:15 Creatine Kinase 70 NT-Pro-B Natriuret Pep 594 H Impressions: Thyroid Ultrasound 05/16/19 08:00 IMPRESSION: Multinodular goiter as detailed above. Within the left lobe of thyroid gland there is a TR 3 nodule that measures approximately 1.5 cm. Thoracentesis Ultrasound 05/17/19 08:00 IMPRESSION: Successful ultrasound-guided placement of a 10 [place]ian all-purpose drainage catheter into the fluid-filled right pleural space. Thoracentesis 05/20/19 00:00 IMPRESSION: SUCCESSFUL PLACEMENT OF A RIGHT SIDED CHEST TUBE USING CT GUIDANCE. Chest CT 05/28/19 00:00 IMPRESSION: 1. Persistent right pleural effusion status post right chest tube placement. Persistent collapse of right lower lobe and middle lobe. No pneumothorax. 2. Developing airspace disease the left lower lobe may represent concurrent infection or aspiration. 3. Bone metastasis. Chest X-Ray 05/28/19 00:00 IMPRESSION: STABLE APPEARANCE OF THE CHEST. SUPPORT DEVICES UNCHANGED. 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 She has had minimal chest tube output overnight. The nursing staff reports that she began having increased work of breathing and confusion. The patient's chest x-ray looks worse today. I have reviewed her CT scan, which shows increasing amounts of fluid in the chest. I have flushed her right tube thoracostomy with approximately 60 cc of sterile, injectable saline. I then aspirated greater than 300 cc of jasiel blood from her right chest. I believe the blood is too thick to be adequately removed by the small bore chest tube. I have discussed the case with Dr. Sands and Dr. Ordonez. I have recommended cessation of her Xarelto and any other anticoagulants/antiplatelet. I will increase the chest tube suction to 25 cm of water, in hopes this will help evacuate the blood. Repeat chest x-ray tomorrow. Continue supportive care.
[2019-05-29] MEDS: MORPHINE SULFATE 10 MG/ML INJ IV PRN ×4 (02:28→23:32)
[2019-05-29 05:36] LABS: ARTERIAL BLOOD BASE EXCESS 2.1 mmol/L; ARTERIAL BLOOD H2CO3 1.13 mmol/L (1.05-1.35); ARTERIAL BLOOD O2 SATURATION 92.9 % (94-98); ARTERIAL BLOOD PCO2 37.6 mmHg (35-45); ARTERIAL BLOOD PH 7.46 (7.35-7.45); ARTERIAL BLOOD PO2 61.6 mmHg (80-100); ARTERIAL BLOOD TOTAL CO2 27.2 mmol/L (21-25)
[2019-05-29] MEDS: DIGOXIN INJ 0.5 MG/2 ML AMPULE IV SCH (05:38)
[2019-05-29 05:39] LABS: HEMOGLOBIN 8.1 g/dL (12.0-15.5); MEAN CORPUSCULAR HEMOGLOBIN 29.8 pg (27.0-33.4); MEAN CORPUSCULAR HGB CONC 32.5 g/dL (32.0-36.0); MEAN CORPUSCULAR VOLUME 92 fl (80-97); RED BLOOD COUNT 2.73 10^6/uL (3.72-5.28); RED CELL DISTRIBUTION WIDTH 14.4 % (11.5-14.0); WHITE BLOOD COUNT 20.3 10^3/uL (4.0-10.5)
[2019-05-29] MEDS: INSULIN LISPRO 100 UNIT/ML 3 ML VIAL SUBCUT SCH ×4 (05:42→23:38)
[2019-05-29 05:44] LABS: ARTERIAL BLOOD FIO2 21%
[2019-05-29 05:58] LABS: ALBUMIN 2.4 g/dL (3.5-5.0); ALKALINE PHOSPHATASE 132 U/L (38-126); ANION GAP 7 (5-19); ASPARTATE AMINO TRANSFERASE 35 U/L (14-36); BILIRUBIN,DIRECT 0.3 mg/dL (0.0-0.4); BILIRUBIN,TOTAL 0.8 mg/dL (0.2-1.3); BLOOD UREA NITROGEN 35 mg/dL (7-20); CALCIUM 11.3 mg/dL (8.4-10.2); CARBON DIOXIDE 27 mmol/L (22-30); CHLORIDE 106 mmol/L (98-107); GLUCOSE 178 mg/dL (75-110); PHOSPHORUS 2.7 mg/dL (2.5-4.5); POTASSIUM 4.1 mmol/L (3.6-5.0)
[2019-05-29 06:14] LABS: ABSOLUTE LYMPHOCYTES# (MANUAL) 2.2 10^3/uL (0.5-4.7); BASOPHILS % (MANUAL) 0 % (0-2); EOSINOPHILS % (MANUAL) 0 % (0-6); LYMPHOCYTES % (MANUAL) 11 % (13-45); MONOCYTES % (MANUAL) 10 % (3-13); SEGMENTED NEUTROPHILS % (MAN) 79 % (42-78); TOTAL CELLS COUNTED 100
[2019-05-29 06:15] LABS: ANISOCYTOSIS SLIGHT; PLATELET COMMENT DECREASED; POLYCHROMASIA 1+
[2019-05-29 06:16] LABS: PLATELET COUNT 62 10^3/uL (150-450)
--- NOTE | 2019-05-29 07:59 | PDOC PROGRESS REPORT ---
Subjective Progress Note for:: 05/29/19 Subjective:: Pt currently has stable respiratory status, still having blood for from chest tube. Dr. Sands had long discussion w/ family yesterday and they understand her prognosis and status. Currently she is full code. Reason For Visit: RIGHT KNEE PAIN Physical Exam Vital Signs: Temp Pulse Resp BP Pulse Ox 98.7 F 115 H 11 L 104/61 94 05/29/19 05:48 05/28/19 20:00 05/29/19 06:00 05/29/19 05:43 05/29/19 06:00 Pulse Oximeter Nocturnal Start: 05/14/19 13:35 Freq: RTQ4 Status: Complete Protocol: Document 05/15/19 07:26 CMI (Rec: 05/15/19 07:27 CMI [email or web address]) Nocturnal Pulse Oximetry Equipment Usage Equipment Discontinued Continuous SpO2 Machine # 5 Intake & Output 05/28/19 05/29/19 05/30/19 06:59 06:59 06:59 Intake Total 3360 335 Output Total 750 3312 Balance 2610 -2977 Weight 99 kg 104.2 kg General appearance: PRESENT: no acute distress Head exam: PRESENT: atraumatic Mouth exam: PRESENT: dry mucosa Respiratory exam: PRESENT: decreased breath sounds Cardiovascular exam: PRESENT: tachycardia Pulses: PRESENT: normal radial pulses GI/Abdominal exam: PRESENT: normal bowel sounds, soft. ABSENT: distended, guar ding, mass, organolmegaly, rebound, tenderness Rectal exam: PRESENT: deferred Neurological exam: PRESENT: altered Results Laboratory Results: 05/29/19 05:15 05/29/19 05:15 05/28/19 05/28/19 05/28/19 06:30 06:30 06:30 WBC 19.6 H RBC 2.89 L Hgb 8.6 L Hct 26.5 L MCV 92 MCH 29.9 MCHC 32.5 RDW 14.2 H Plt Count 66 L Seg Neutrophils % Carbonic Acid HCO3/H2CO3 Ratio ABG pH ABG pCO2 ABG pO2 ABG HCO3 ABG O2 Saturation ABG Base Excess FiO2 Sodium Potassium Chloride Carbon Dioxide Anion Gap BUN Creatinine Est GFR ( Amer) Glucose Calcium Phosphorus 4.1 Magnesium Total Bilirubin Cancelled 0.7 AST Cancelled 36 Alkaline Phosphatase Cancelled 151 H Total Protein Cancelled 5.0 L Albumin Cancelled 2.4 L Urine Color Urine Appearance Urine pH Ur Specific [place] Urine Protein Urine Glucose (UA) Urine Ketones Urine Blood Urine RBC (Auto) 05/28/19 05/28/19 05/29/19 10:30 15:35 05:15 WBC RBC Hgb Hct MCV MCH MCHC RDW Plt Count Seg Neutrophils % Carbonic Acid 1.13 HCO3/H2CO3 Ratio 23:1 ABG pH 7.46 H ABG pCO2 37.6 ABG pO2 61.6 L ABG HCO3 26.0 H ABG O2 Saturation 92.9 L ABG Base Excess 2.1 FiO2 21% Sodium Potassium Chloride Carbon Dioxide Anion Gap BUN Creatinine Est GFR ( Amer) Glucose Calcium 11.0 H Phosphorus Magnesium Total Bilirubin AST Alkaline Phosphatase Total Protein Albumin 2.4 L Urine Color STRAW Urine Appearance SLIGHTLY-CLOUDY Urine pH 5.0 Ur Specific [place] 1.009 Urine Protein NEGATIVE Urine Glucose (UA) NEGATIVE Urine Ketones TRACE H Urine Blood MODERATE H Urine RBC (Auto) 66 05/29/19 05/29/19 05:15 05:15 WBC 20.3 H RBC 2.73 L Hgb 8.1 L Hct 25.0 L MCV 92 MCH 29.8 MCHC 32.5 RDW 14.4 H Plt Count 62 L Seg Neutrophils % Not Reportable Carbonic Acid HCO3/H2CO3 Ratio ABG pH ABG pCO2 ABG pO2 ABG HCO3 ABG O2 Saturation ABG Base Excess FiO2 Sodium 139.8 Potassium 4.1 Chloride 106 Carbon Dioxide 27 Anion Gap 7 BUN 35 H Creatinine 1.16 Est GFR ( Amer) 57 L Glucose 178 H Calcium 11.3 H Phosphorus 2.7 Magnesium 1.8 Total Bilirubin 0.8 AST 35 Alkaline Phosphatase 132 H Total Protein 5.0 L Albumin 2.4 L Urine Color Urine Appearance Urine pH Ur Specific [place] Urine Protein Urine Glucose (UA) Urine Ketones Urine Blood Urine RBC (Auto) 05/08/19 05/15/19 12:26 17:15 Creatine Kinase 70 NT-Pro-B Natriuret Pep 594 H Impressions: Thyroid Ultrasound 05/16/19 08:00 IMPRESSION: Multinodular goiter as detailed above. Within the left lobe of thyroid gland there is a TR 3 nodule that measures approximately 1.5 cm. Thoracentesis Ultrasound 05/17/19 08:00 IMPRESSION: Successful ultrasound-guided placement of a 10 [place] all-purpose drainage catheter into the fluid-filled right pleural space. Thoracentesis 05/20/19 00:00 IMPRESSION: SUCCESSFUL PLACEMENT OF A RIGHT SIDED CHEST TUBE USING CT GUIDANCE. Chest CT 05/28/19 00:00 IMPRESSION: 1. Persistent right pleural effusion status post right chest tube placement. Persistent collapse of right lower lobe and middle lobe. No pneumothorax. 2. Developing airspace disease the left lower lobe may represent concurrent infection or aspiration. 3. Bone metastasis. Status: Image reviewed by me Assessment & Plan - Diagnosis (1) Malignant pleural effusion Is this a current diagnosis for this admission?: Yes Plan: s/p pleurodysis now w/ probable fistula, jasiel blood coming out from chest tube, cont management per surgical team (2) Lung cancer Qualifiers: Laterality: right Lung location: lower lobe of lung Qualified Code(s): C34.31 - Malignant neoplasm of lower lobe, right bronchus or lung Is this a current diagnosis for this admission?: Yes Plan: We were planning on starting [place], but if her lung status does not improve, one could consider trial of systemic chemo but want to see how pt does over next 24 hours (3) Effusion, right knee Is this a current diagnosis for this admission?: Yes Plan: Improved - Time Time Spent with patient: 35 or more minutes
--- NOTE | 2019-05-29 08:02 | RADIOLOGY REPORT (SQ) ---
EXAM DESCRIPTION: CHEST SINGLE VIEW COMPLETED DATE/TIME: 05/29/2019 6:13 am REASON FOR STUDY: pleural effusion COMPARISON: 05/28/2019 NUMBER OF VIEWS: One view. TECHNIQUE: Single frontal radiographic image of the chest acquired. LIMITATIONS: None. FINDINGS: LUNGS AND PLEURA: Improved aeration with residual right pleural effusion and associated ai rspace disease. No pneumothorax. Left lung is clear. MEDIASTINUM AND HEART: Stable heart size and mediastinal structures. SUPPORT DEVICES: Appropriate location without change. BONY STRUCTURES: No acute findings. HARDWARE: None. OTHER: No other significant finding. IMPRESSION: Interval improvement in the right lung. Reading location - IP/workstation name: [email or web address]
[2019-05-29] MEDS: LIDOCAINE 5% (700 MG) TRANSDERMAL ADH..PATCH TP SCH (10:05)
[2019-05-29] MEDS: MAGNESIUM OXIDE 400 MG TABLET PO SCH ×2 (10:05→17:10)
[2019-05-29] MEDS: LISINOPRIL 5 MG TABLET PO SCH (10:06)
[2019-05-29] MEDS: METOPROLOL SUCCINATE 25 MG TAB.SR.24H PO SCH (10:07)
[2019-05-29] MEDS: FAMOTIDINE 20 MG TABLET PO SCH ×2 (10:07→21:26)
[2019-05-29] MEDS: NORMAL SALINE 1000 ML 1,000 ML IV PRN ×2 (12:27→19:30)
[2019-05-29] MEDS: OXYCODONE HCL IR 5 MG TABLET PO PRN ×2 (12:28→17:09)
--- NOTE | 2019-05-29 14:54 | PDOC CRITICAL CARE PROG REPORT ---
General Date:: 05/29/19 ICU Day:: 2 Hospital Day:: 15 Resuscitation Status: Full Code Events in the past 12 to 24 Hours:: More comfortable breathing. Slightly lower HR. Review of systems relevant to events:: Respiratory, CV Reason for ICU Addmission:: Increased WOB, acute respiratory faiure, Lung cancer. Hypercalcemia - Medications: Medications reviewed and adjusted accordingly: Yes Vasopressors:: None Sedation:: None Physical Exam Vital Signs: Temp Pulse Resp BP Pulse Ox 99.8 F 123 H 19 102/58 L 98 05/29/19 12:00 05/29/19 14:00 05/29/19 14:15 05/29/19 14:15 05/29/19 14:15 Pulse Oximeter Nocturnal Start: 05/14/19 13:35 Freq: RTQ4 Status: Complete Protocol: Document 05/15/19 07:26 CMI (Rec: 05/15/19 07:27 CMI [id number]) Nocturnal Pulse Oximetry Equipment Usage Equipment Discontinued Continuous SpO2 Machine # 5 Intake & Output 05/28/19 05/29/19 05/30/19 06:59 06:59 06:59 Intake Total 3360 1335 Output Total 750 3312 615 Balance 2610 -1977 -615 Weight 99 kg 104.2 kg Weight/Height Weight 104.2 kg Height 5 ft 10 in General appearance: PRESENT: no acute distress, cooperative Head exam: PRESENT: atraumatic, normocephalic Eye exam: PRESENT: conjunctiva pink, EOMI, PERRLA. ABSENT: scleral icterus Ear exam: PRESENT: normal external ear exam Mouth exam: PRESENT: moist, tongue midline Neck exam: ABSENT: carotid bruit, JVD, lymphadenopathy, thyromegaly Respiratory exam: PRESENT: crackles, decreased breath sounds - Decreased sounds on R, rhonchi, unlabored, other - Ches tube on R Cardiovascular exam: PRESENT: tachycardia Pulses: PRESENT: normal dorsalis pedis pul Vascular exam: PRESENT: normal capillary refill GI/Abdominal exam: PRESENT: normal bowel sounds, soft. ABSENT: distended, guarding, mass, organolmegaly, rebound, tenderness Rectal exam: PRESENT: deferred Gentrourinary exam: PRESENT: indwelling catheter Extremities exam: PRESENT: full ROM. ABSENT: calf tenderness, clubbing, pedal edema Musculoskeletal exam: PRESENT: normal inspection Neurological exam: PRESENT: alert, altered, awake, oriented to person, oriented to place Psychiatric exam: PRESENT: agitated - On occassion. Skin exam: PRESENT: dry, intact, warm. ABSENT: cyanosis, rash Tubes/Lines: PRESENT: Chest Tube, Central Line Laboratory/Radiographs Laboratory Results: 05/29/19 05:15 05/29/19 05:15 05/28/19 05/29/19 05/29/19 15:35 05:15 05:15 WBC RBC Hgb Hct MCV MCH MCHC RDW Plt Count Seg Neutrophils % Carbonic Acid 1.13 HCO3/H2CO3 Ratio 23:1 ABG pH 7.46 H ABG pCO2 37.6 ABG pO2 61.6 L ABG HCO3 26.0 H ABG O2 Saturation 92.9 L ABG Base Excess 2.1 FiO2 21% Sodium 139.8 Potassium 4.1 Chloride 106 Carbon Dioxide 27 Anion Gap 7 BUN 35 H Creatinine 1.16 Est GFR ( Amer) 57 L Glucose 178 H Calcium 11.0 H 11.3 H Phosphorus 2.7 Magnesium 1.8 Total Bilirubin 0.8 AST 35 Alkaline Phosphatase 132 H Total Protein 5.0 L Albumin 2.4 L 2.4 L 05/29/19 05:15 WBC 20.3 H RBC 2.73 L Hgb 8.1 L Hct 25.0 L MCV 92 MCH 29.8 MCHC 32.5 RDW 14.4 H Plt Count 62 L Seg Neutrophils % Not Reportable Carbonic Acid HCO3/H2CO3 Ratio ABG pH ABG pCO2 ABG pO2 ABG HCO3 ABG O2 Saturation ABG Base Excess FiO2 Sodium Potassium Chloride Carbon Dioxide Anion Gap BUN Creatinine Est GFR ( Amer) Glucose Calcium Phosphorus Magnesium Total Bilirubin AST Alkaline Phosphatase Total Protein Albumin 05/08/19 05/15/19 12:26 17:15 Creatine Kinase 70 NT-Pro-B Natriuret Pep 594 H Impressions: Thyroid Ultrasound 05/16/19 08:00 IMPRESSION: Multinodular goiter as detailed above. Within the left lobe of thyroid gland there is a TR 3 nodule that measures approximately 1.5 cm. Thoracentesis Ultrasound 05/17/19 08:00 IMPRESSION: Successful ultrasound-guided placement of a 10 Khmer all-purpose drainage catheter into the fluid-filled right pleural space. Thoracentesis 05/20/19 00:00 IMPRESSION: SUCCESSFUL PLACEMENT OF A RIGHT SIDED CHEST TUBE USING CT GUIDANCE. Chest CT 05/28/19 00:00 IMPRESSION: 1. Persistent right pleural effusion status post right chest tube placement. Persistent collapse of right lower lobe and middle lobe. No pneumothorax. 2. Developing airspace disease the left lower lobe may represent concurrent infection or aspiration. 3. Bone metastasis. Chest X-Ray 05/29/19 06:00 IMPRESSION: Interval improvement in the right lung. All labs, radiographs, diagnostic studies and EKGs were personally reviewed: Yes In addition, reports of radiographic and diagnostic studies were read: Yes Assessment and Plan - Diagnosis (1) Acute respiratory failure Qualifiers: Respiratory failure complication: hypoxia and hypercapnia Qualified Code(s): J96.01 - Acute respiratory failure with hypoxia; J96.02 - Acute respiratory failure with hypercapnia Is this a current diagnosis for this admission?: Yes Plan: She is more comfortable and off bipap. I believe lasix and ativan also helped. (2) Lung cancer Qualifiers: Laterality: right Lung location: lower lobe of lung Qualified Code(s): C34.31 - Malignant neoplasm of lower lobe, right bronchus or lung Is this a current diagnosis for this admission?: Yes Plan: She was to start chemotherapy today. Not stable enough. Family still considering DNR status but I believe wants to try CTx. (3) Tachycardia Is this a current diagnosis for this admission?: Yes Plan: Improved. Has high HR > 100 when stressed. (4) DVT (deep venous thrombosis) Qualifiers: DVT location: lower extremity Affected thrombotic vein of extremity: femoral Chronicity: acute Laterality: right Qualified Code(s): I82.411 - Acute embolism and thrombosis of right femoral vein Is this a current diagnosis for this admission?: Yes Plan: Xarelto on hold due to thoracic bleeding. (5) Diabetes Qualifiers: Diabetes mellitus type: type 2 Diabetes mellitus complication status: without complication Is this a current diagnosis for this admission?: Yes Plan: Controlled up to now. (6) Leukocytosis Qualifiers: Leukocytosis type: unspecified Qualified Code(s): D72.829 - Elevated white blood cell count, unspecified Is this a current diagnosis for this admission?: Yes Plan: WBC 20k. With rising glucose suggestive but not pathognomonic of infection. No hard sign of infection. Lung and thorax on R is of concern.She is at high risk for post obstructive PNA. Plan Summary: Recheck labs and use bipap when needed. If stable may transfer in AM Critical Time Critical Time (minutes): 35 Level of Care: ICU Anticipated discharge: SNF Within: Other - Too praneeth to tell. -: 1. The care of a critical patient is a dynamic process. This note is a technical support representative synopsis but static in nature. The timeframe for treatments given in order is not necessary the actual time these treatments may have been done. 2. This patient requires critical care secondary to ongoing requirements for therapy not offered or safe outside the critical care environment. Transfer to a lower level of care with altered life or limb morbidity and mortality. 3. Multidisciplinary rounds completed. 4. ABCDE bundle addressed.
[2019-05-29] MEDS ORDERED: ALBUMIN HUMAN 500 ML IV ONE (20:00)
[2019-05-29 22:03] LABS: ANION GAP 6 (5-19); BLOOD UREA NITROGEN 35 mg/dL (7-20); CARBON DIOXIDE 28 mmol/L (22-30); CHLORIDE 104 mmol/L (98-107); GLUCOSE 171 mg/dL (75-110); POTASSIUM 3.9 mmol/L (3.6-5.0)
[2019-05-29] MEDS ORDERED: LORAZEPAM INJ 2 MG/1 ML VIAL ONE (23:00)
[2019-05-29] MEDS ORDERED: METOPROLOL TARTRATE PF/INJ 5 MG/5 ML SDV IV ONE ×2 (23:21→23:31)
--- NOTE | 2019-05-29 23:21 | EKG REPORT ---
SEVERITY:- ABNORMAL ECG - SINUS TACHYCARDIA REPOL ABNRM SUGGESTS ISCHEMIA, DIFFUSE LEADS CONSIDER ACUTE ANTERIOR VT,( ACUTE ST ELEVATION V1-V3 ),( CALLED TO ICU-3 NURSE, SPOKE WITH NANCY RAZO ). LVH : Confirmed by: Vahid Mcguire MD 29-May-2019 23:20:46
[2019-05-29] MEDS ORDERED: ASPIRIN 600 MG SUPP, RECTAL PR ONE (23:33)
[2019-05-29] MEDS ORDERED: ASPIRIN 300 MG SUPP, RECTAL PR ONE (23:42)
[2019-05-29] MEDS ORDERED: NORMAL SALINE 1000 ML 1,000 ML IV ONE (23:52)
[2019-05-29] MEDS ORDERED: PAMIDRONATE DISODIUM INJ 30 MG/10 ML VIAL IV ONE (23:55)
[2019-05-30 00:11] LABS: CREATINE KINASE MB 3.6 ng/mL (<4.55); TROPONIN I 0.084 ng/mL
[2019-05-30] MEDS ORDERED: PAMIDRONATE DISODIUM INJ 30 MG/10 ML VIAL IV PRN (00:11)
[2019-05-30] MEDS ORDERED: PAMIDRONATE DISODIUM IV ONE (00:15)
[2019-05-30] MEDS ORDERED: NORMAL SALINE IV ONE (00:15)
[2019-05-30] MEDS ORDERED: PAMIDRONATE DISODIUM INJ 30 MG/10 ML VIAL IV ONE (01:06)
[2019-05-30] MEDS: NORMAL SALINE 1000 ML 1,000 ML IV PRN ×5 (01:35→20:26)
[2019-05-30] MEDS ORDERED: LORAZEPAM INJ 2 MG/1 ML VIAL IV ONE (02:00)
[2019-05-30] MEDS: MORPHINE SULFATE 10 MG/ML INJ IV PRN ×5 (03:23→18:17)
[2019-05-30 04:16] LABS: ABSOLUTE LYMPHOCYTES (AUTO) 2.2 10^3/uL (0.5-4.7); ABSOLUTE MONOCYTES (AUTO) 1.1 10^3/uL (0.1-1.4); ABSOLUTE NEUT (AUTO) 10.7 10^3/uL (1.7-8.2); BASOPHILS % (AUTO) 0.1 % (0-2); EOSINOPHILS % (AUTO) 0.2 % (0-6); HEMATOCRIT 22.1 % (36.0-47.0); LYMPHOCYTES % (AUTO) 15.9 % (13-45); MEAN CORPUSCULAR HEMOGLOBIN 29.8 pg (27.0-33.4); MEAN CORPUSCULAR VOLUME 93 fl (80-97); MONOCYTES % (AUTO) 7.5 % (3-13); RED BLOOD COUNT 2.38 10^6/uL (3.72-5.28); RED CELL DISTRIBUTION WIDTH 14.7 % (11.5-14.0); SEGMENTED NEUTROPHILS % (AUTO) 76.3 % (42-78); TOTAL CELLS COUNTED % (AUTO) 100 %
[2019-05-30 04:18] LABS: BLOOD UREA NITROGEN 34 mg/dL (7-20); CALCIUM 11.5 mg/dL (8.4-10.2); GLUCOSE 146 mg/dL (75-110); POTASSIUM 3.9 mmol/L (3.6-5.0)
[2019-05-30 04:23] LABS: CARBON DIOXIDE 27 mmol/L (22-30); CHLORIDE 109 mmol/L (98-107)
[2019-05-30 04:26] LABS: ANION GAP 3 (5-19)
[2019-05-30 04:38] LABS: HEMOGLOBIN 7.1 g/dL (12.0-15.5); PLATELET COUNT 41 10^3/uL (150-450)
[2019-05-30] MEDS: INSULIN LISPRO 100 UNIT/ML 3 ML VIAL SUBCUT SCH ×5 (05:35→23:47)
--- NOTE | 2019-05-30 06:25 | RADIOLOGY REPORT (SQ) ---
Chest single view on 05/30/2019 at 5:56 AM CLINICAL INDICATION: Right chest tube COMPARISON: 05/29/2019 FINDINGS: Right subclavian catheter tip is at the cavoatrial junction. Right-sided pleural pigtail catheter is unchanged in position projecting over the right upper chest. There is a large right pleural effusion. There is adjacent right-sided opacity consistent with atelectasis and/or pneumonia. There has been apparent partial resection of right upper rib. There is continued left lower lung opacity consistent with atelectasis and/or pneumonia. No pneumothorax is noted. IMPRESSION: No significant change in the appearance of the chest.
--- NOTE | 2019-05-30 08:27 | PDOC PROGRESS REPORT ---
Subjective Progress Note for:: 05/30/19 Subjective:: Patient is confused and crying out at times this morning, wants to leave. She tells me her breathing is okay and she is not having any pain. I had a long discussion with her , who does understand she is not getting better and seems to be going towards considering a comfort care approach. He agreed to a DNR last night. Family is coming in today and he will discuss it further with them. Unfortunately her hemoglobin is down to 7 and platelets are down to 42. I explained to him that when counts are this low, we cannot consider a systemic chemotherapy approach. Reason For Visit: RIGHT KNEE PAIN Physical Exam Vital Signs: Temp Pulse Resp BP Pulse Ox 98.6 F 112 H 12 134/58 H 100 05/30/19 04:00 05/29/19 20:00 05/30/19 06:12 05/30/19 06:12 05/30/19 06:12 Pulse Oximeter Nocturnal Start: 05/14/19 13:35 Freq: RTQ4 Status: Complete Protocol: Document 05/15/19 07:26 CMI (Rec: 05/15/19 07:27 CMI [id number]) Nocturnal Pulse Oximetry Equipment Usage Equipment Discontinued Continuous SpO2 Machine # 5 Intake & Output 05/29/19 05/30/19 05/31/19 06:59 06:59 06:59 Intake Total 1335 3066 Output Total 3312 1735 Balance -1976 1331 Weight 104.2 kg 105.7 kg General appearance: PRESENT: no acute distress, well-developed, well-nourished Head exam: PRESENT: atraumatic, normocephalic Eye exam: PRESENT: conjunctiva pink, EOMI, PERRLA. ABSENT: scleral icterus Ear exam: PRESENT: normal external ear exam Mouth exam: PRESENT: moist, tongue midline Neck exam: ABSENT: carotid bruit, JVD, lymphadenopathy, thyromegaly Respiratory exam: PRESENT: clear to auscultation shivam. ABSENT: rales, rhonchi, wheezes Cardiovascular exam: PRESENT: RRR. ABSENT: diastolic murmur, rubs, systolic mu rmur Pulses: PRESENT: normal dorsalis pedis pul Vascular exam: PRESENT: normal capillary refill GI/Abdominal exam: PRESENT: normal bowel sounds, soft. ABSENT: distended, guarding, mass, organolmegaly, rebound, tenderness Rectal exam: PRESENT: deferred Extremities exam: PRESENT: full ROM. ABSENT: calf tenderness, clubbing, pedal edema Neurological exam: PRESENT: alert, awake, oriented to person, oriented to place, oriented to time, oriented to situation, CN II-XII grossly intact. ABSENT: motor sensory deficit Psychiatric exam: PRESENT: appropriate affect, normal mood. ABSENT: homicidal ideation, suicidal ideation Skin exam: PRESENT: dry, intact, warm. ABSENT: cyanosis, rash Results Laboratory Results: 05/30/19 03:51 05/30/19 03:51 05/29/19 05/30/19 05/30/19 21:25 03:51 03:51 WBC 14.0 H RBC 2.38 L Hgb 7.1 L Hct 22.1 L MCV 93 MCH 29.8 MCHC 32.0 RDW 14.7 H Plt Count 41 L Seg Neutrophils % 76.3 Sodium 137.8 139.3 Potassium 3.9 3.9 Chloride 104 109 H Carbon Dioxide 28 27 Anion Gap 6 3 L BUN 35 H 34 H Creatinine 1.06 0.91 Est GFR ( Amer) > 60 > 60 Glucose 171 H 146 H Calcium 12.0 H* 11.5 H 05/08/19 05/15/19 05/29/19 12:26 17:15 23:24 Creatine Kinase 70 CK-MB (CK-2) 3.60 Troponin I 0.084 NT-Pro-B Natriuret Pep 594 H Impressions: Thyroid Ultrasound 05/16/19 08:00 IMPRESSION: Multinodular goiter as detailed above. Within the left lobe of thyroid gland there is a TR 3 nodule that measures approximately 1.5 cm. Thoracentesis Ultrasound 05/17/19 08:00 IMPRESSION: Successful ultrasound-guided placement of a 10 Tristanian all-purpose drainage catheter into the fluid-filled right pleural space. Thoracentesis 05/20/19 00:00 IMPRESSION: SUCCESSFUL PLACEMENT OF A RIGHT SIDED CHEST TUBE USING CT GUIDANCE. Chest CT 05/28/19 00:00 IMPRESSION: 1. Persistent right pleural effusion status post right chest tube placement. Persistent collapse of right lower lobe and middle lobe. No pneumothorax. 2. Developing airspace disease the left lower lobe may represent concurrent infection or aspiration. 3. Bone metastasis. Chest X-Ray 05/30/19 00:00 IMPRESSION: No significant change in the appearance of the chest. Assessment & Plan - Diagnosis (1) Malignant pleural effusion Is this a current diagnosis for this admission?: Yes Plan: Unfortunately more bloody effusion now, lung status is getting better but still tenuous. (2) Lung cancer Qualifiers: Laterality: right Lung location: lower lobe of lung Qualified Code(s): C34.31 - Malignant neoplasm of lower lobe, right bronchus or lung Is this a current diagnosis for this admission?: Yes Plan: I was hopeful that patient would be able to get treatment and would respond very rapidly, however given her counts being low, with a platelet count of 42, I do not know that chemotherapy will help her and would have a higher chance of hurting her. I explained that to the who seems to know this and agree with this approach. (3) Effusion, right knee Is this a current diagnosis for this admission?: Yes Plan: Improved, - Time Time Spent with patient: 35 or more minutes
[2019-05-30] MEDS ORDERED: FUROSEMIDE INJ/PF 40 MG/4 ML SDV IV ONE (08:30)
[2019-05-30] MEDS: MAGNESIUM OXIDE 400 MG TABLET PO SCH ×2 (08:40→18:18)
--- NOTE | 2019-05-30 08:46 | PDOC CRITICAL CARE PROG REPORT ---
General Date:: 05/30/19 ICU Day:: 3 Hospital Day:: 23 Resuscitation Status: Do Not Resuscitate Events in the past 12 to 24 Hours:: Evidence of NSTEMI. More encephalopathic. DNR status. Review of systems relevant to events:: Neuro, CV, Hemeatology. Reason for ICU Addmission:: Increased WOB, acute respiratory faiure, Lung cancer. Hypercalcemia - Medications: Medications reviewed and adjusted accordingly: Yes Vasopressors:: None Sedation:: None Physical Exam Vital Signs: Temp Pulse Resp BP Pulse Ox 98.6 F 112 H 12 134/58 H 100 05/30/19 04:00 05/29/19 20:00 05/30/19 06:12 05/30/19 06:12 05/30/19 06:12 Pulse Oximeter Nocturnal Start: 05/14/19 13:35 Freq: RTQ4 Status: Complete Protocol: Document 05/15/19 07:26 CMI (Rec: 05/15/19 07:27 CMI [id number]) Nocturnal Pulse Oximetry Equipment Usage Equipment Discontinued Continuous SpO2 Machine # 5 Intake & Output 05/29/19 05/30/19 05/31/19 06:59 06:59 06:59 Intake Total 1335 3066 Output Total 3312 1735 Balance -1976 1331 Weight 104.2 kg 105.7 kg Weight/Height Weight 105.7 kg Height 5 ft 10 in General appearance: PRESENT: disheveled, mild distress, other - Yelling incoherently Head exam: PRESENT: atraumatic, normocephalic Eye exam: PRESENT: conjunctiva pink, EOMI, PERRLA. ABSENT: scleral icterus Ear exam: PRESENT: normal external ear exam Mouth exam: PRESENT: moist, tongue midline Respiratory exam: PRESENT: crackles, decreased breath sounds, rhonchi, other - Pigtail catheter in R chest. Cardiovascular exam: PRESENT: RRR. ABSENT: diastolic murmur, rubs, systolic murmur GI/Abdominal exam: PRESENT: normal bowel sounds, soft. ABSENT: distended, guarding, mass, organolmegaly, rebound, tenderness Rectal exam: PRESENT: deferred Gentrourinary exam: PRESENT: indwelling catheter Extremities exam: PRESENT: full ROM. ABSENT: calf tenderness, clubbing, pedal edema Musculoskeletal exam: PRESENT: normal inspection Neurological exam: PRESENT: altered Psychiatric exam: PRESENT: agitated Skin exam: PRESENT: dry, intact, warm. ABSENT: cyanosis, rash Tubes/Lines: PRESENT: Chest Tube, Central Line Laboratory/Radiographs Laboratory Results: 05/30/19 03:51 05/30/19 03:51 05/29/19 05/30/19 05/30/19 21:25 03:51 03:51 WBC 14.0 H RBC 2.38 L Hgb 7.1 L Hct 22.1 L MCV 93 MCH 29.8 MCHC 32.0 RDW 14.7 H Plt Count 41 L Seg Neutrophils % 76.3 Sodium 137.8 139.3 Potassium 3.9 3.9 Chloride 104 109 H Carbon Dioxide 28 27 Anion Gap 6 3 L BUN 35 H 34 H Creatinine 1.06 0.91 Est GFR ( Amer) > 60 > 60 Glucose 171 H 146 H Calcium 12.0 H* 11.5 H 05/08/19 05/15/19 05/29/19 12:26 17:15 23:24 Creatine Kinase 70 CK-MB (CK-2) 3.60 Troponin I 0.084 NT-Pro-B Natriuret Pep 594 H Impressions: Thyroid Ultrasound 05/16/19 08:00 IMPRESSION: Multinodular goiter as detailed above. Within the left lobe of thyroid gland there is a TR 3 nodule that measures approximately 1.5 cm. Thoracentesis Ultrasound 05/17/19 08:00 IMPRESSION: Successful ultrasound-guided placement of a 10 Albanian all-purpose drainage catheter into the fluid-filled right pleural space. Thoracentesis 05/20/19 00:00 IMPRESSION: SUCCESSFUL PLACEMENT OF A RIGHT SIDED CHEST TUBE USING CT GUIDANCE. Chest CT 05/28/19 00:00 IMPRESSION: 1. Persistent right pleural effusion status post right chest tube placement. Persistent collapse of right lower lobe and middle lobe. No pneumothorax. 2. Developing airspace disease the left lower lobe may represent concurrent infection or aspiration. 3. Bone metastasis. Chest X-Ray 05/30/19 00:00 IMPRESSION: No significant change in the appearance of the chest. All labs, radiographs, diagnostic studies and EKGs were personally reviewed: Yes In addition, reports of radiographic and diagnostic studies were read: Yes Assessment and Plan - Diagnosis (1) Acute respiratory failure Qualifiers: Respiratory failure complication: hypoxia and hypercapnia Qualified Code(s): J96.01 - Acute respiratory failure with hypoxia; J96.02 - Acute respiratory failure with hypercapnia Is this a current diagnosis for this admission?: Yes Plan: Resolved (2) Lung cancer Qualifiers: Laterality: right Lung location: lower lobe of lung Qualified Code(s): C34.31 - Malignant neoplasm of lower lobe, right bronchus or lung Is this a current diagnosis for this admission?: Yes Plan: Unfortunately too ill for CTx. Encephalopathy worse. Drain R chest more for comfort at this point. (3) Tachycardia Is this a current diagnosis for this admission?: Yes Plan: Less so with metoprolol (4) DVT (deep venous thrombosis) Qualifiers: DVT location: lower extremity Affected thrombotic vein of extremity: femoral Chronicity: acute Laterality: right Qualified Code(s): I82.411 - Acute embolism and thrombosis of right femoral vein Is this a current diagnosis for this admission?: Yes Plan: No Xarelr=to in view of chest bleeding. (5) Diabetes Qualifiers: Diabetes mellitus type: type 2 Diabetes mellitus complication status: witho ut complication Is this a current diagnosis for this admission?: Yes Plan: Controled (6) Leukocytosis Qualifiers: Leukocytosis type: unspecified Qualified Code(s): D72.829 - Elevated white blood cell count, unspecified Is this a current diagnosis for this admission?: Yes Plan: Much improved. WBC down to 14. (7) NSTEMI (non-ST elevated myocardial infarction) Is this a current diagnosis for this admission?: Yes Plan: This was suggestied on review of her EKG. No chest pain. Troponin 0.08 and repeat pending. Will treat medically. Not a cath candidate. Heparin contraindicated in face of bleeding. (8) Anemia Is this a current diagnosis for this admission?: Yes Plan: Likely due to R chest bleeding and marrow suppression. Transfuse 2 units. Plan Summary: Transfuse and treat medically. Status changed to DNR last night. Critical Time Critical Time (minutes): 40 Level of Care: ICU Anticipated discharge: Hospice Within: Other - too soon to tell. -: 1. The care of a critical patient is a dynamic process. This note is a indirect sales representative synopsis but static in nature. The timeframe for treatments given in order is not necessary the actual time these treatments may have been done. 2. This patient requires critical care secondary to ongoing requirements for therapy not offered or safe outside the critical care environment. Transfer to a lower level of care with altered life or limb morbidity and mortality. 3. Multidisciplinary rounds completed. 4. ABCDE bundle addressed.
[2019-05-30 08:48] LABS: HEMATOCRIT 22.8 % (36.0-47.0); MEAN CORPUSCULAR HEMOGLOBIN 30.4 pg (27.0-33.4); MEAN CORPUSCULAR HGB CONC 32.8 g/dL (32.0-36.0); MEAN CORPUSCULAR VOLUME 93 fl (80-97); RED BLOOD COUNT 2.46 10^6/uL (3.72-5.28); RED CELL DISTRIBUTION WIDTH 14.6 % (11.5-14.0); WHITE BLOOD COUNT 13.9 10^3/uL (4.0-10.5)
[2019-05-30 08:50] LABS: HEMOGLOBIN 7.5 g/dL (12.0-15.5); PLATELET COUNT 41 10^3/uL (150-450)
[2019-05-30 09:26] LABS: CREATINE KINASE MB 3.64 ng/mL (<4.55); TROPONIN I 0.092 ng/mL
[2019-05-30] MEDS: DIGOXIN 0.25 MG TABLET PO SCH (10:45)
[2019-05-30] MEDS: METOPROLOL SUCCINATE 25 MG TAB.SR.24H PO SCH (11:00)
[2019-05-30] MEDS: LISINOPRIL 5 MG TABLET PO SCH (11:00)
[2019-05-30] MEDS: FAMOTIDINE 20 MG TABLET PO SCH ×2 (11:01→21:39)
[2019-05-30] MEDS: LEVALBUTEROL HCL NEB 1.25 MG/3 ML AMPUL NEB PRN (11:13)
[2019-05-30] MEDS: LIDOCAINE 5% (700 MG) TRANSDERMAL ADH..PATCH TP SCH (12:00)
--- NOTE | 2019-05-30 13:37 | PDOC PROGRESS REPORT ---
Subjective Progress Note for:: 05/29/19 Subjective:: 64-year-old female with stage IV lung cancer, malignant pleural effusion, and now a pleurocutaneous fistula. The patient denies fevers, chills, abdominal pain. Her shortness of breath has improved. She is less confused today. Yesterday, 300cc of blood was aspirated from her chest tube. Her chest discomfort is lessening. Reason For Visit: RIGHT KNEE PAIN Physical Exam Vital Signs: Intake & Output 05/29/19 06:59 Intake Total 1335 Output Total 3312 -1976 Weight 104.2 kg Exam: General appearance: PRESENT: obese Head exam: PRESENT: atraumatic, normocephalic Eye exam: PRESENT: EOMI, PERRLA. ABSENT: scleral icterus Mouth exam: PRESENT: moist, neck supple Neck exam: ABSENT: tenderness, thyromegaly, tracheal deviation Respiratory exam: PRESENT: other - decreased BS on right, coarse BS on left. Small caliber posterior chest tube in place. No air leak. ABSENT: tachypnea Cardiovascular exam: PRESENT: tachycardia GI/Abdominal exam: PRESENT: soft. ABSENT: distended, guarding, tenderness Extremities exam: ABSENT: clubbing Musculoskeletal exam: ABSENT: deformity Neurological exam: PRESENT: awake, oriented to person, CN II-XII grossly intact. ABSENT: oriented to place, oriented to time, oriented to situation Psychiatric exam: PRESENT: agitated, anxious Focused psych exam: PRESENT: delusional, restlessness Skin exam: ABSENT: erythema, jaundice Results Laboratory Results: 05/29/19 21:25 WBC RBC Hgb Hct MCV MCH MCHC RDW Plt Count Seg Neutrophils % Sodium 137.8 Potassium 3.9 Chloride 104 Carbon Dioxide 28 Anion Gap 6 BUN 35 H Creatinine 1.06 Est GFR ( Amer) > 60 Glucose 171 H Calcium 12.0 H* 05/08/19 05/15/19 05/29/19 12:26 17:15 23:24 Creatine Kinase 70 CK-MB (CK-2) 3.60 Troponin I 0.084 NT-Pro-B Natriuret Pep 594 H Impressions: Thyroid Ultrasound 05/16/19 08:00 IMPRESSION: Multinodular goiter as detailed above. Within the left lobe of thyroid gland there is a TR 3 nodule that measures approximately 1.5 cm. Thoracentesis Ultrasound 05/17/19 08:00 IMPRESSION: Successful ultrasound-guided placement of a 10 Serbian all-purpose drainage catheter into the fluid-filled right pleural space. Thoracentesis 05/20/19 00:00 IMPRESSION: SUCCESSFUL PLACEMENT OF A RIGHT SIDED CHEST TUBE USING CT GUIDANCE. Chest CT 05/28/19 00:00 IMPRESSION: 1. Persistent right pleural effusion status post right chest tube placement. Persistent collapse of right lower lobe and middle lobe. No pneumothorax. 2. Developing airspace disease the left lower lobe may represent concurrent infection or aspiration. 3. Bone metastasis. 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 She had approximately 300cc of blood aspirated from her chest tube yesterday. Today, I have aspirated approximately 50cc of bloody fluid at the bedside. The patient's chest x-ray looks better today. I believe that some of the bloody fluid is too thick to be adequately removed by the small bore chest tube. Continue the chest tube suction at 25 cm of water, in hopes this will help evacuate the blood. Repeat chest x-ray tomorrow. Continue supportive care.
[2019-05-30] MEDS: OXYCODONE HCL IR 5 MG TABLET PO PRN ×2 (14:06→20:27)
--- NOTE | 2019-05-30 14:31 | PDOC PROGRESS REPORT ---
Subjective Progress Note for:: 05/30/19 Subjective:: 64-year-old female with stage IV lung cancer, malignant pleural effusion, and now a pleurocutaneous fistula. The patient denies fevers, chills, abdominal pain. Her shortness of breath has improved, and she is no longer requiring BiPAP. She is less confused today. Yesterday, 60cc of blood was aspirated from her chest tube. Her chest discomfort is lessening. Reason For Visit: RIGHT KNEE PAIN Physical Exam Vital Signs: Temp Pulse Resp BP Pulse Ox 98.5 F 118 H 21 H 139/66 H 99 05/30/19 12:00 05/30/19 12:00 05/30/19 12:00 05/30/19 12:00 05/30/19 12:00 Pulse Oximeter Nocturnal Start: 05/14/19 13:35 Freq: RTQ4 Status: Complete Protocol: Document 05/15/19 07:26 CMI (Rec: 05/15/19 07:27 CMI [email or web address]) Nocturnal Pulse Oximetry Equipment Usage Equipment Discontinued Continuous SpO2 Machine # 5 Intake & Output 05/29/19 05/30/19 05/31/19 06:59 06:59 06:59 Intake Total 1335 3066 1730 Output Total 3312 1735 1999 1331 -270 Weight 104.2 kg 105.7 kg Exam: General appearance: PRESENT: obese Head exam: PRESENT: atraumatic, normocephalic Eye exam: PRESENT: EOMI, PERRLA. ABSENT: scleral icterus Mouth exam: PRESENT: moist, neck supple Neck exam: ABSENT: tenderness, thyromegaly, tracheal deviation Respiratory exam: PRESENT: other - decreased BS on right, coarse BS on left. Small caliber posterior chest tube in place. No air leak. ABSENT: tachypnea Cardiovascular exam: PRESENT: tachycardia GI/Abdominal exam: PRESENT: soft. ABSENT: distended, guarding, tenderness Extremities exam: ABSENT: clubbing Musculoskeletal exam: ABSENT: deformity Neurological exam: PRESENT: awake, oriented to person, CN II-XII grossly intact. ABSENT: oriented to place, oriented to time, oriented to situation Psychiatric exam: PRESENT: agitated, anxious Focused psych exam: PRESENT: delusional, restlessness Skin exam: ABSENT: erythema, jaundice Results Laboratory Results: 05/30/19 08:15 05/30/19 03:51 05/29/19 05/30/19 05/30/19 21:25 03:51 03:51 WBC 14.0 H RBC 2.38 L Hgb 7.1 L Hct 22.1 L MCV 93 MCH 29.8 MCHC 32.0 RDW 14.7 H Plt Count 41 L Seg Neutrophils % 76.3 Sodium 137.8 139.3 Potassium 3.9 3.9 Chloride 104 109 H Carbon Dioxide 28 27 Anion Gap 6 3 L BUN 35 H 34 H Creatinine 1.06 0.91 Est GFR ( Amer) > 60 > 60 Glucose 171 H 146 H Calcium 12.0 H* 11.5 H 05/30/19 08:15 WBC 13.9 H RBC 2.46 L Hgb 7.5 L Hct 22.8 L MCV 93 MCH 30.4 MCHC 32.8 RDW 14.6 H Plt Count 41 L Seg Neutrophils % Sodium Potassium Chloride Carbon Dioxide Anion Gap BUN Creatinine Est GFR ( Amer) Glucose Calcium 05/08/19 05/15/19 05/29/19 12:26 17:15 23:24 Creatine Kinase 70 CK-MB (CK-2) 3.60 Troponin I 0.084 NT-Pro-B Natriuret Pep 594 H 05/30/19 05/30/19 08:15 08:15 Creatine Kinase 22 L CK-MB (CK-2) 3.64 Troponin I 0.092 NT-Pro-B Natriuret Pep Impressions: Thyroid Ultrasound 05/16/19 08:00 IMPRESSION: Multinodular goiter as detailed above. Within the left lobe of thyroid gland there is a TR 3 nodule that measures approximately 1.5 cm. Thoracentesis Ultrasound 05/17/19 08:00 IMPRESSION: Successful ultrasound-guided placement of a 10 Zambian all-purpose drainage catheter into the fluid-filled right pleural space. Thoracentesis 05/20/19 00:00 IMPRESSION: SUCCESSFUL PLACEMENT OF A RIGHT SIDED CHEST TUBE USING CT GUIDANCE. Chest CT 05/28/19 00:00 IMPRESSION: 1. Persistent right pleural effusion status post right chest tube placement. Persistent collapse of right lower lobe and middle lobe. No pneumothorax. 2. Developing airspace disease the left lower lobe may represent concurrent infection or aspiration. 3. Bone metastasis. Chest X-Ray 05/30/19 00:00 IMPRESSION: No significant change in the appearance of the chest. 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 She is status post chemical pleurodesis. I have been manually aspirating her chest tube once per day. She had approximately 60cc of blood aspirated from her chest tube yesterday by me. Today, I have aspirated approximately 30cc of bloody fluid at the bedside. She has had approximately 150 cc of fluid out over 24 hours. This is much improved. The patient's chest x-ray looks unchanged today (better than previous). Continue the chest tube suction at 25 cm of water, in hopes this will help evacuate all the bloody fluid. Repeat chest x-ray tomorrow. Continue supportive care.
--- NOTE | 2019-05-30 17:21 | Progress Note ---
Provider Note Provider Note: Converstion had with , 2 daughters and sister explaining course of care. Prognosis not good. Family has some concerns best answered by Oncologist. Family meeting set up for 8A Wed. Critical care time 30 minutes
[2019-05-30] MEDS ORDERED: METOPROLOL TARTRATE PF/INJ 5 MG/5 ML SDV IV ONE (18:15)
[2019-05-30 20:11] LABS: ARTERIAL BLOOD BASE EXCESS 1.5 mmol/L; ARTERIAL BLOOD H2CO3 1.43 mmol/L (1.05-1.35); ARTERIAL BLOOD HCO3 27.1 mmol/L (20-24); ARTERIAL BLOOD O2 SATURATION 42.4 % (94-98); ARTERIAL BLOOD PCO2 47.6 mmHg (35-45); ARTERIAL BLOOD PH 7.37 (7.35-7.45); ARTERIAL BLOOD TOTAL CO2 28.5 mmol/L (21-25)
[2019-05-30 20:15] LABS: ARTERIAL BLOOD FIO2 4L
[2019-05-30 20:17] LABS: ARTERIAL BLOOD PO2 24.7 mmHg (80-100)
--- NOTE | 2019-05-30 22:44 | Progress Note ---
Provider Note Provider Note: Extensive conversation held with family today with nursing staff present as well as 4 members of the patient's family. Despite the decision to make her DNR on the previous night, family was very concerned that we would not treat up until the point of cardiac arrest. We spoke for about 1 hour regarding the meaning and implementation of a DO NOT RESUSCITATE order. Family seems to now have a better understanding, however, they would like the time to converse with the remainder of their extended family before allowing the DNR order to stand. Patient is therefore FULL CODE at this time. They are open to further conversation and would be interested in discussing her CODE STATUS again in the future.
[2019-05-31] MEDS: MORPHINE SULFATE 10 MG/ML INJ IV PRN (02:19)
[2019-05-31] MEDS: NORMAL SALINE 1000 ML 1,000 ML IV PRN ×2 (03:00→19:50)
[2019-05-31] MEDS ORDERED: METOPROLOL TARTRATE PF/INJ 5 MG/5 ML SDV IV ONE ×2 (03:16)
[2019-05-31 04:46] LABS: ABSOLUTE LYMPHOCYTES (AUTO) 1.2 10^3/uL (0.5-4.7); ABSOLUTE MONOCYTES (AUTO) 0.6 10^3/uL (0.1-1.4); ABSOLUTE NEUT (AUTO) 7.9 10^3/uL (1.7-8.2); BASOPHILS % (AUTO) 0.2 % (0-2); EOSINOPHILS % (AUTO) 0.5 % (0-6); HEMATOCRIT 23.7 % (36.0-47.0); LYMPHOCYTES % (AUTO) 11.9 % (13-45); MEAN CORPUSCULAR HEMOGLOBIN 30.2 pg (27.0-33.4); MEAN CORPUSCULAR HGB CONC 32.6 g/dL (32.0-36.0); MEAN CORPUSCULAR VOLUME 93 fl (80-97); MONOCYTES % (AUTO) 5.7 % (3-13); RED BLOOD COUNT 2.55 10^6/uL (3.72-5.28); RED CELL DISTRIBUTION WIDTH 14.7 % (11.5-14.0); SEGMENTED NEUTROPHILS % (AUTO) 81.7 % (42-78); TOTAL CELLS COUNTED % (AUTO) 100 %; WHITE BLOOD COUNT 9.7 10^3/uL (4.0-10.5)
[2019-05-31 04:57] LABS: ANION GAP 5 (5-19); BLOOD UREA NITROGEN 27 mg/dL (7-20); CALCIUM 11.2 mg/dL (8.4-10.2); CARBON DIOXIDE 26 mmol/L (22-30); CHLORIDE 111 mmol/L (98-107); GLUCOSE 178 mg/dL (75-110); POTASSIUM 3.9 mmol/L (3.6-5.0)
[2019-05-31] MEDS: INSULIN LISPRO 100 UNIT/ML 3 ML VIAL SUBCUT SCH ×4 (05:00→23:45)
[2019-05-31 05:11] LABS: HEMOGLOBIN 7.7 g/dL (12.0-15.5); PLATELET COUNT 44 10^3/uL (150-450)
--- NOTE | 2019-05-31 09:01 | RADIOLOGY REPORT (SQ) ---
EXAM DESCRIPTION: CHEST SINGLE VIEW COMPLETED DATE/TIME: 05/31/2019 6:11 am REASON FOR STUDY: chest tube, lung cancer COMPARISON: None. EXAM PARAMETERS: NUMBER OF VIEWS: One view. TECHNIQUE: Single frontal radiographic view of the chest acquired. RADIATION DOSE: NA LIMITATIONS: None. FINDINGS: LUNGS AND PLEURA: Unchanged dense opacity on the right-side that obscures the contour of t he left hemidiaphragm and blunts the left lateral costophrenic sulcus. The prominence of the interst itium in the left lung is also unchanged. There is no pneumothorax. MEDIASTINUM AND HILAR STRUCTURES: Stable mediastinal and hilar contours. HEART AND VASCULAR STRUCTURES: Stable cardiac silhouette. BONES: The right 3rd rib is eroded. There is a fracture of the right 6th rib. HARDWARE: The tip of the right subclavian central venous catheter projects at the level of the cavoat rial junction. There is a pleural drainage catheter in place that projects within the right pleural space. OTHER: No other finding. IMPRESSION: Unchanged radiographic appearance of the chest. TECHNICAL DOCUMENTATION: JOB ID: [id number] [employer]- All Rights Reserved Reading location - IP/workstation name: [email or web address]
[2019-05-31] MEDS: LEVALBUTEROL HCL NEB 1.25 MG/3 ML AMPUL NEB PRN (09:18)
--- NOTE | 2019-05-31 09:25 | PDOC PROGRESS REPORT ---
Subjective Progress Note for:: 05/31/19 Subjective:: Today had a long discussion with family, had greater than 60-minute discussion. Discussed her current status of disease, next steps of care, family understood, she is no longer DNR and they would like to pursue full therapy. Reason For Visit: RIGHT KNEE PAIN Physical Exam Vital Signs: Temp Pulse Resp BP Pulse Ox 98.3 F 121 H 23 H 176/89 H 100 05/31/19 08:00 05/31/19 08:00 05/31/19 08:00 05/31/19 08:00 05/31/19 08:00 Pulse Oximeter Nocturnal Start: 05/14/19 13:35 Freq: RTQ4 Status: Complete Protocol: Document 05/15/19 07:26 CMI (Rec: 05/15/19 07:27 CMI [email or web address]) Nocturnal Pulse Oximetry Equipment Usage Equipment Discontinued Continuous SpO2 Machine # 5 Intake & Output 05/30/19 05/31/19 06/01/19 06:59 06:59 06:59 Intake Total 3066 3655 Output Total 1735 3320 Balance 1331 335 Weight 105.7 kg 107.3 kg General appearance: PRESENT: no acute distress Head exam: PRESENT: atraumatic Mouth exam: PRESENT: dry mucosa Respiratory exam: PRESENT: crackles, decreased breath sounds Cardiovascular exam: PRESENT: tachycardia GI/Abdominal exam: PRESENT: normal bowel sounds, soft. ABSENT: distended, guarding, mass, organolmegaly, rebound, tenderness Rectal exam: PRESENT: deferred Neurological exam: PRESENT: altered Psychiatric exam: PRESENT: agitated Results Laboratory Results: 05/31/19 04:14 05/31/19 04:14 05/30/19 05/31/19 05/31/19 19:58 04:14 04:14 WBC 9.7 RBC 2.55 L Hgb 7.7 L Hct 23.7 L MCV 93 MCH 30.2 MCHC 32.6 RDW 14.7 H Plt Count 44 L Seg Neutrophils % 81.7 H Carbonic Acid 1.43 H HCO3/H2CO3 Ratio 18:1 ABG pH 7.37 ABG pCO2 47.6 H ABG pO2 24.7 L* ABG HCO3 27.1 H ABG O2 Saturation 42.4 L ABG Base Excess 1.5 FiO2 4L Sodium 142.0 Potassium 3.9 Chloride 111 H Carbon Dioxide 26 Anion Gap 5 BUN 27 H Creatinine 0.87 Est GFR ( Amer) > 60 Glucose 178 H Calcium 11.2 H 05/08/19 05/15/19 05/29/19 12:26 17:15 23:24 Creatine Kinase 70 CK-MB (CK-2) 3.60 Troponin I 0.084 NT-Pro-B Natriuret Pep 594 H 05/30/19 05/30/19 08:15 08:15 Creatine Kinase 22 L CK-MB (CK-2) 3.64 Troponin I 0.092 NT-Pro-B Natriuret Pep Impressions: Thyroid Ultrasound 05/16/19 08:00 IMPRESSION: Multinodular goiter as detailed above. Within the left lobe of thyroid gland there is a TR 3 nodule that measures approximately 1.5 cm. Thoracentesis Ultrasound 05/17/19 08:00 IMPRESSION: Successful ultrasound-guided placement of a 10 Chinese all-purpose drainage catheter into the fluid-filled right pleural space. Thoracentesis 05/20/19 00:00 IMPRESSION: SUCCESSFUL PLACEMENT OF A RIGHT SIDED CHEST TUBE USING CT GUIDANCE. Chest CT 05/28/19 00:00 IMPRESSION: 1. Persistent right pleural effusion status post right chest tube placement. Persistent collapse of right lower lobe and middle lobe. No pneumothorax. 2. Developing airspace disease the left lower lobe may represent concurrent infection or aspiration. 3. Bone metastasis. Chest X-Ray 05/31/19 06:00 IMPRESSION: Unchanged radiographic appearance of the chest. Assessment & Plan - Diagnosis (1) Malignant pleural effusion Is this a current diagnosis for this admission?: Yes Plan: Actually improving now, status post pleurodesis, will follow (2) Lung cancer Qualifiers: Laterality: right Lung location: lower lobe of lung Qualified Code(s): C34.31 - Malignant neoplasm of lower lobe, right bronchus or lung Is this a current diagnosis for this admission?: Yes Plan: Platelet count is still in the 40 range, unfortunately we just have to let her bone marrow recover from this. Family would like to pursue active therapy, so we will go ahead and order the oral drug in the hopes that the blood count will recover. (3) Effusion, right knee Is this a current diagnosis for this admission?: Yes Plan: Improved - Time Time Spent with patient: 35 or more minutes
--- NOTE | 2019-05-31 09:42 | PDOC PROGRESS REPORT ---
Subjective Progress Note for:: 05/31/19 Subjective:: 64-year-old female with stage IV lung cancer, malignant pleural effusion, and now a pleurocutaneous fistula. The patient denies fevers, chills, abdominal pain. Her shortness of breath has improved. She is still mildly confused. Yesterday, 30cc of blood was aspirated from her chest tube. Her chest discomfort is lessening. Reason For Visit: RIGHT KNEE PAIN Physical Exam Vital Signs: Temp Pulse Resp BP Pulse Ox 98.3 F 113 H 38 H 176/89 H 100 05/31/19 08:00 05/31/19 09:24 05/31/19 09:24 05/31/19 08:00 05/31/19 09:30 Pulse Oximeter Nocturnal Start: 05/14/19 13:35 Freq: RTQ4 Status: Complete Protocol: Document 05/15/19 07:26 CMI (Rec: 05/15/19 07:27 CMI [email or web address]) Nocturnal Pulse Oximetry Equipment Usage Equipment Discontinued Continuous SpO2 Machine # 5 Intake & Output 05/30/19 05/31/19 06/01/19 06:59 06:59 06:59 Intake Total 3066 3655 Output Total 1735 3320 Balance 1331 335 Weight 105.7 kg 107.3 kg Exam: General appearance: PRESENT: obese Head exam: PRESENT: atraumatic, normocephalic Eye exam: PRESENT: EOMI, PERRLA. ABSENT: scleral icterus Mouth exam: PRESENT: moist, neck supple Neck exam: ABSENT: tenderness, thyromegaly, tracheal deviation Respiratory exam: PRESENT: other - decreased BS on right, coarse BS on left. Small caliber posterior chest tube in place. No air leak, fluid appears more serous today. ABSENT: tachypnea Cardiovascular exam: PRESENT: tachycardia GI/Abdominal exam: PRESENT: soft. ABSENT: distended, guarding, tenderness Extremities exam: ABSENT: clubbing Musculoskeletal exam: ABSENT: deformity Neurological exam: PRESENT: awake, oriented to person, CN II-XII grossly intact. ABSENT: oriented to place, oriented to time, oriented to situation Psychiatric exam: PRESENT: agitated, anxious Focused psych exam: PRESENT: delusional, restlessness Skin exam: ABSENT: erythema, jaundice Results Laboratory Results: 05/31/19 04:14 05/31/19 04:14 05/30/19 05/31/19 05/31/19 19:58 04:14 04:14 WBC 9.7 RBC 2.55 L Hgb 7.7 L Hct 23.7 L MCV 93 MCH 30.2 MCHC 32.6 RDW 14.7 H Plt Count 44 L Seg Neutrophils % 81.7 H Carbonic Acid 1.43 H HCO3/H2CO3 Ratio 18:1 ABG pH 7.37 ABG pCO2 47.6 H ABG pO2 24.7 L* ABG HCO3 27.1 H ABG O2 Saturation 42.4 L ABG Base Excess 1.5 FiO2 4L Sodium 142.0 Potassium 3.9 Chloride 111 H Carbon Dioxide 26 Anion Gap 5 BUN 27 H Creatinine 0.87 Est GFR ( Amer) > 60 Glucose 178 H Calcium 11.2 H 05/08/19 05/15/19 05/29/19 12:26 17:15 23:24 Creatine Kinase 70 CK-MB (CK-2) 3.60 Troponin I 0.084 NT-Pro-B Natriuret Pep 594 H 05/30/19 05/30/19 08:15 08:15 Creatine Kinase 22 L CK-MB (CK-2) 3.64 Troponin I 0.092 NT-Pro-B Natriuret Pep Impressions: Thyroid Ultrasound 05/16/19 08:00 IMPRESSION: Multinodular goiter as detailed above. Within the left lobe of thyroid gland there is a TR 3 nodule that measures approximately 1.5 cm. Thoracentesis Ultrasound 05/17/19 08:00 IMPRESSION: Successful ultrasound-guided placement of a 10 Congolese all-purpose drainage catheter into the fluid-filled right pleural space. Thoracentesis 05/20/19 00:00 IMPRESSION: SUCCESSFUL PLACEMENT OF A RIGHT SIDED CHEST TUBE USING CT GUIDANCE. Chest CT 05/28/19 00:00 IMPRESSION: 1. Persistent right pleural effusion status post right chest tube placement. Persistent collapse of right lower lobe and middle lobe. No pneumothorax. 2. Developing airspace disease the left lower lobe may represent concurrent infection or aspiration. 3. Bone metastasis. Chest X-Ray 05/31/19 06:00 IMPRESSION: Unchanged radiographic appearance of the chest. 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 She is status post chemical pleurodesis. I have been manually aspirating her chest tube once per day. She had approximately 30cc of blood aspirated from her chest tube yesterday by me. Today, I have aspirated approximately 10cc of serosanguinous fluid at the bedside. It appears more serous than on previous days. She has had approximately 200 cc of fluid out over 24 hours. This is much improved from prior days. The patient's chest x- ray looks unchanged today (better than previous). Continue the chest tube suction at 25 cm of water, in hopes this will help evacuate all the bloody fluid. Repeat chest x-ray tomorrow. Continue supportive care.
--- NOTE | 2019-05-31 11:09 | PDOC CRITICAL CARE PROG REPORT ---
General Date:: 05/31/19 ICU Day:: 4 Resuscitation Status: Full Code Events in the past 12 to 24 Hours:: Status change back to full code. CT this AM of brain Review of systems relevant to events:: Neuro, hematology, respiratory. Reason for ICU Addmission:: Increased WOB, acute respiratory faiure, Lung cancer. Hypercalcemia - Medications: Medications reviewed and adjusted accordingly: Yes Vasopressors:: None Sedation:: None Physical Exam Vital Signs: Temp Pulse Resp BP Pulse Ox 98.3 F 113 H 19 171/90 H 99 05/31/19 08:00 05/31/19 09:24 05/31/19 10:00 05/31/19 09:58 05/31/19 10:00 Pulse Oximeter Nocturnal Start: 05/14/19 13:35 Freq: RTQ4 Status: Complete Protocol: Document 05/15/19 07:26 CMI (Rec: 05/15/19 07:27 CMI [email or web address]) Nocturnal Pulse Oximetry Equipment Usage Equipment Discontinued Continuous SpO2 Machine # 5 Intake & Output 05/30/19 05/31/19 06/01/19 06:59 06:59 06:59 Intake Total 3066 3655 Output Total 1735 3320 Balance 1331 335 Weight 105.7 kg 107.3 kg Weight/Height Weight 107.3 kg Height 5 ft 10 in General appearance: PRESENT: disheveled, mild distress Head exam: PRESENT: atraumatic, normocephalic Eye exam: PRESENT: conjunctiva pink, EOMI, PERRLA. ABSENT: scleral icterus Ear exam: PRESENT: normal external ear exam Mouth exam: PRESENT: moist, tongue midline Respiratory exam: PRESENT: crackles, other - Pigtail cather having less drainage. Cardiovascular exam: PRESENT: tachycardia Pulses: PRESENT: normal dorsalis pedis pul GI/Abdominal exam: PRESENT: normal bowel sounds, soft. ABSENT: distended, guarding, mass, organolmegaly, rebound, tenderness Rectal exam: PRESENT: deferred Gentrourinary exam: PRESENT: indwelling catheter Extremities exam: PRESENT: full ROM, other - R knee still swollen and painful, no change.. ABSENT: calf tenderness, clubbing, pedal edema Musculoskeletal exam: PRESENT: normal inspection Neurological exam: PRESENT: alert, altered, awake, oriented to person Psychiatric exam: PRESENT: agitated, anxious Skin exam: PRESENT: dry, intact, warm. ABSENT: cyanosis, rash Tubes/Lines: PRESENT: Chest Tube, Central Line Laboratory/Radiographs Laboratory Results: 05/31/19 04:14 05/31/19 04:14 05/30/19 05/31/19 05/31/19 19:58 04:14 04:14 WBC 9.7 RBC 2.55 L Hgb 7.7 L Hct 23.7 L MCV 93 MCH 30.2 MCHC 32.6 RDW 14.7 H Plt Count 44 L Seg Neutrophils % 81.7 H Carbonic Acid 1.43 H HCO3/H2CO3 Ratio 18:1 ABG pH 7.37 ABG pCO2 47.6 H ABG pO2 24.7 L* ABG HCO3 27.1 H ABG O2 Saturation 42.4 L ABG Base Excess 1.5 FiO2 4L Sodium 142.0 Potassium 3.9 Chloride 111 H Carbon Dioxide 26 Anion Gap 5 BUN 27 H Creatinine 0.87 Est GFR ( Amer) > 60 Glucose 178 H Calcium 11.2 H 05/08/19 05/15/19 05/29/19 12:26 17:15 23:24 Creatine Kinase 70 CK-MB (CK-2) 3.60 Troponin I 0.084 NT-Pro-B Natriuret Pep 594 H 05/30/19 05/30/19 08:15 08:15 Creatine Kinase 22 L CK-MB (CK-2) 3.64 Troponin I 0.092 NT-Pro-B Natriuret Pep Impressions: Thyroid Ultrasound 05/16/19 08:00 IMPRESSION: Multinodular goiter as detailed above. Within the left lobe of thyroid gland there is a TR 3 nodule that measures approximately 1.5 cm. Thoracentesis Ultrasound 05/17/19 08:00 IMPRESSION: Successful ultrasound-guided placement of a 10 [place] all-purpose drainage catheter into the fluid-filled right pleural space. Thoracentesis 05/20/19 00:00 IMPRESSION: SUCCESSFUL PLACEMENT OF A RIGHT SIDED CHEST TUBE USING CT GUIDANCE. Chest CT 05/28/19 00:00 IMPRESSION: 1. Persistent right pleural effusion status post right chest tube placement. Persistent collapse of right lower lobe and middle lobe. No pneumothorax. 2. Developing airspace disease the left lower lobe may represent concurrent infection or aspiration. 3. Bone metastasis. Chest X-Ray 05/31/19 06:00 IMPRESSION: Unchanged radiographic appearance of the chest. All labs, radiographs, diagnostic studies and EKGs were personally reviewed: Yes In addition, reports of radiographic and diagnostic studies were read: Yes Assessment and Plan - Diagnosis (1) Acute respiratory failure Qualifiers: Respiratory failure complication: hypoxia and hypercapnia Qualified Code(s): J96.01 - Acute respiratory failure with hypoxia; J96.02 - Acute respiratory failure with hypercapnia Is this a current diagnosis for this admission?: Yes Plan: Resolved (2) Lung cancer Qualifiers: Laterality: right Lung location: lower lobe of lung Qualified Code(s): C34.31 - Malignant neoplasm of lower lobe, right bronchus or lung Is this a current diagnosis for this admission?: Yes Plan: Still too sick to start PO CTx. Long discussion today led by oncology. Many questions answered. Family is frequently not all present for discussions. Disjointed conversations have led to a knowledge deficit. Hopefully this talk clarified most concerns. CT of brain to R/O bleed. (3) Tachycardia Is this a current diagnosis for this admission?: Yes Plan: She has been tachycardic to about 100 sinc admission. It is higher now and responds to lopressor when needed. (4) DVT (deep venous thrombosis) Qualifiers: DVT location: lower extremity Affected thrombotic vein of extremity: femoral Chronicity: acute Laterality: right Qualified Code(s): I82.411 - Acute embolism and thrombosis of right femoral vein Is this a current diagnosis for this admission?: Yes Plan: Unfortunately not ready to restart Xarelto. (5) Diabetes Qualifiers: Diabetes mellitus type: type 2 Diabetes mellitus complication status: without complication Is this a current diagnosis for this admission?: Yes (6) Leukocytosis Qualifiers: Leukocytosis type: unspecified Qualified Code(s): D72.829 - Elevated white blood cell count, unspecified Is this a current diagnosis for this admission?: Yes Plan: Resolved (7) NSTEMI (non-ST elevated myocardial infarction) Is this a current diagnosis for this admission?: Yes Plan: This has been ruled out . Not a diagnosis (8) Anemia Is this a current diagnosis for this admission?: Yes Plan: Improved slightly Plan Summary: Plan CT brain today and palliative care consult to help with pain control. Critical Time Critical Time (minutes): 60 Level of Care: ICU Anticipated discharge: SNF Within: Other - Too soon to tell. -: 1. The care of a critical patient is a dynamic process. This note is a healthcare representative synopsis but static in nature. The timeframe for treatments given in order is not necessary the actual time these treatments may have been done. 2. This patient requires critical care secondary to ongoing requirements for therapy not offered or safe outside the critical care environment. Transfer to a lower level of care with altered life or limb morbidity and mortality. 3. Multidisciplinary rounds completed. 4. ABCDE bundle addressed.
--- NOTE | 2019-05-31 11:16 | RADIOLOGY REPORT (SQ) ---
EXAM DESCRIPTION: CT HEAD WITHOUT COMPLETED DATE/TIME: 05/31/2019 10:59 am REASON FOR STUDY: Lung CA hx. Possible metastatic dz v bleed (less l COMPARISON: MRI of the brain from 04/17/2019. TECHNIQUE: Axial images acquired through the brain without intravenous contrast. Images reviewed wi th bone, brain and subdural windows. Additional sagittal and coronal reconstructions were generated. Images stored on PACS. All CT scanners at this facility use dose modulation, iterative reconstruction, and/or weight based d osing when appropriate to reduce radiation dose to as low as reasonably achievable (ALARA). [facility]: Dose Right [facility]: CareDose [facility]: Dose Right [facility]: Teradose 4D [facility]: Evident.io RADIATION DOSE: CT Rad equipment meets quality standard of care and radiation dose reduction techniq ues were employed. CTDIvol: 48.6 mGy. DLP: 953 mGy-cm. mGy. LIMITATIONS: None. FINDINGS: There is no acute intracranial hemorrhage, vascular territorial infarct, extra-axial fluid collection, mass effect or midline shift. There is no effacement of the cerebral sulci or basal sub arachnoid cisterns. The ibarra-white matter differentiation is preserved. The caliber of the ventricl es is concordant with the degree of sulcation and unchanged from 04/17/2019. There is no fracture of the calvarium. The orbits are intact. The paranasal sinuses are clear. IMPRESSION: No acute intracranial abnormality. EVIDENCE OF ACUTE STROKE: NO. COMMENT: Quality ID # [id number]: Final reports with documentation of one or more dose reduction techniques (e.g., Automated exposure control, adjustment of the mA and/or kV according to patient size, use of iterative reconstruction technique) TECHNICAL DOCUMENTATION: JOB ID: [id number] [employer]- All Rights Reserved Reading location - IP/workstation name: [email or web address]
[2019-05-31] MEDS: MAGNESIUM OXIDE 400 MG TABLET PO SCH ×2 (11:25→18:16)
[2019-05-31] MEDS: METOPROLOL SUCCINATE 25 MG TAB.SR.24H PO SCH (11:34)
[2019-05-31] MEDS: FAMOTIDINE 20 MG TABLET PO SCH ×2 (11:34→22:48)
[2019-05-31] MEDS: DIGOXIN 0.25 MG TABLET PO SCH (11:35)
[2019-05-31] MEDS: LISINOPRIL 5 MG TABLET PO SCH (11:35)
[2019-05-31] MEDS: LIDOCAINE 5% (700 MG) TRANSDERMAL ADH..PATCH TP SCH (11:36)
[2019-05-31] MEDS: LORAZEPAM INJ 2 MG/1 ML VIAL IV PRN ×2 (14:45→22:47)
[2019-05-31] MEDS: OXYCODONE HCL IR 5 MG TABLET PO PRN (19:44)
[2019-06-01] MEDS: HYDRALAZINE HCL INJ/PF 20 MG/1 ML SDV IV PRN ×2 (00:31→23:31)
[2019-06-01] MEDS: LORAZEPAM INJ 2 MG/1 ML VIAL IV PRN ×2 (01:43→12:24)
[2019-06-01] MEDS: NORMAL SALINE 1000 ML 1,000 ML IV PRN ×3 (02:00→22:03)
[2019-06-01] MEDS: MAGNESIUM OXIDE 400 MG TABLET PO SCH ×2 (07:30→16:45)
--- NOTE | 2019-06-01 08:33 | PDOC PROGRESS REPORT ---
Subjective Progress Note for:: 06/01/19 Subjective:: 64-year-old female with stage IV lung cancer, malignant pleural effusion, and now a pleurocutaneous fistula. The patient denies fevers, chills, abdominal pain. Her shortness of breath has improved. She is still mildly confused. Yesterday, 10cc of serosanguinous fluid was aspirated from her chest tube. Her chest discomfort is lessening. Reason For Visit: RIGHT KNEE PAIN Physical Exam Vital Signs: Temp Pulse Resp BP Pulse Ox 98.6 F 126 H 20 162/76 H 97 06/01/19 07:26 06/01/19 07:26 06/01/19 07:26 06/01/19 07:26 06/01/19 07:26 Pulse Oximeter Nocturnal Start: 05/14/19 13:35 Freq: RTQ4 Status: Complete Protocol: Document 05/15/19 07:26 CMI (Rec: 05/15/19 07:27 CMI [email or web address]) Nocturnal Pulse Oximetry Equipment Usage Equipment Discontinued Continuous SpO2 Machine # 5 Intake & Output 05/31/19 06/01/19 06/02/19 06:59 06:59 06:59 Intake Total 3655 2225 Output Total 3320 1050 Balance 335 1175 Weight 107.3 kg 106.3 kg Exam: General appearance: PRESENT: obese Head exam: PRESENT: atraumatic, normocephalic Eye exam: PRESENT: EOMI, PERRLA. ABSENT: scleral icterus Mouth exam: PRESENT: moist, neck supple Neck exam: ABSENT: tenderness, thyromegaly, tracheal deviation Respiratory exam: PRESENT: other - decreased BS on right, coarse BS on left. Small caliber posterior chest tube in place. No air leak, fluid appears serous. ABSENT: tachypnea Cardiovascular exam: PRESENT: tachycardia GI/Abdominal exam: PRESENT: soft. ABSENT: distended, guarding, tenderness Extremities exam: ABSENT: clubbing Musculoskeletal exam: ABSENT: deformity Neurological exam: PRESENT: awake, oriented to person, CN II-XII grossly intact. ABSENT: oriented to place, oriented to time, oriented to situation Psychiatric exam: PRESENT: agitated, anxious Focused psych exam: PRESENT: delusional, restlessness Skin exam: ABSENT: erythema, jaundice Results Laboratory Results: 05/31/19 04:14 05/31/19 04:14 05/08/19 05/15/19 05/29/19 12:26 17:15 23:24 Creatine Kinase 70 CK-MB (CK-2) 3.60 Troponin I 0.084 NT-Pro-B Natriuret Pep 594 H 05/30/19 05/30/19 08:15 08:15 Creatine Kinase 22 L CK-MB (CK-2) 3.64 Troponin I 0.092 NT-Pro-B Natriuret Pep Impressions: Thyroid Ultrasound 05/16/19 08:00 IMPRESSION: Multinodular goiter as detailed above. Within the left lobe of thyroid gland there is a TR 3 nodule that measures approximately 1.5 cm. Thoracentesis Ultrasound 05/17/19 08:00 IMPRESSION: Successful ultrasound-guided placement of a 10 [place]ian all-purpose drainage catheter into the fluid-filled right pleural space. Thoracentesis 05/20/19 00:00 IMPRESSION: SUCCESSFUL PLACEMENT OF A RIGHT SIDED CHEST TUBE USING CT GUIDANCE. Chest CT 05/28/19 00:00 IMPRESSION: 1. Persistent right pleural effusion status post right chest tube placement. Persistent collapse of right lower lobe and middle lobe. No pneumothorax. 2. Developing airspace disease the left lower lobe may represent concurrent infection or aspiration. 3. Bone metastasis. Head CT 05/31/19 00:00 IMPRESSION: No acute intracranial abnormality. EVIDENCE OF ACUTE STROKE: NO. 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 She is status post chemical pleurodesis. I have been manually aspirating her chest tube once per day. She had approximately 10cc of serosanguineous fluid aspirated from her chest tube yesterday by me. Today, her chest tube output appears serous. Her chest x-ray is much improved. She has had approximately 450 cc of serous fluid out over 24 hours. The catheter appears to be draining much more effectively, now that the fluid has thinned. Continue the chest tube suction at 25 cm of water. Continue supportive care.
--- NOTE | 2019-06-01 08:52 | RADIOLOGY REPORT (SQ) ---
EXAM DESCRIPTION: CHEST SINGLE VIEW COMPLETED DATE/TIME: 06/01/2019 8:18 am REASON FOR STUDY: pleural effusion COMPARISON: 05/31/2019. EXAM PARAMETERS: NUMBER OF VIEWS: One view. TECHNIQUE: Single frontal radiographic view of the chest acquired. RADIATION DOSE: NA LIMITATIONS: None. FINDINGS: LUNGS AND PLEURA: Right pleural effusion, unchanged. No pneumothorax. Left lung relative ly clear. MEDIASTINUM AND HILAR STRUCTURES: No masses. Contour normal. HEART AND VASCULAR STRUCTURES: Heart normal in size. Normal vasculature. BONES: No acute findings. HARDWARE: Stable right side pleural catheter and central line. OTHER: No other significant finding. IMPRESSION: NO CHANGE IN THE LARGE RIGHT PLEURAL EFFUSION. TECHNICAL DOCUMENTATION: JOB ID: [id number] [employer]- All Rights Reserved Reading location - IP/workstation name: [email or web address]
--- NOTE | 2019-06-01 09:27 | PDOC PROGRESS REPORT ---
Subjective Progress Note for:: 06/01/19 Subjective:: Patient was confused overnight but was fighting with the BiPAP, apparently there was an air leak and once that air leak was fixed she was much more comfortable. But family says during the day she did better and was talking with family and did eat some yesterday. Reason For Visit: RIGHT KNEE PAIN Physical Exam Vital Signs: Temp Pulse Resp BP Pulse Ox 98.6 F 126 H 20 162/76 H 97 06/01/19 07:26 06/01/19 07:26 06/01/19 07:26 06/01/19 07:26 06/01/19 07:26 Pulse Oximeter Nocturnal Start: 05/14/19 13:35 Freq: RTQ4 Status: Complete Protocol: Document 05/15/19 07:26 CMI (Rec: 05/15/19 07:27 CMI [email or web address]) Nocturnal Pulse Oximetry Equipment Usage Equipment Discontinued Continuous SpO2 Machine # 5 Intake & Output 05/31/19 06/01/19 06/02/19 06:59 06:59 06:59 Intake Total 3655 2225 1000 Output Total 3320 1050 Balance 335 1175 1000 Weight 107.3 kg 106.3 kg General appearance: PRESENT: no acute distress, well-developed, well-nourished Head exam: PRESENT: atraumatic, normocephalic Eye exam: PRESENT: conjunctiva pink, EOMI, PERRLA. ABSENT: scleral icterus Ear exam: PRESENT: normal external ear exam Mouth exam: PRESENT: moist, tongue midline Neck exam: ABSENT: carotid bruit, JVD, lymphadenopathy, thyromegaly Respiratory exam: PRESENT: clear to auscultation shivam. ABSENT: rales, rhonchi, wheezes Cardiovascular exam: PRESENT: RRR. ABSENT: diastolic murmur, rubs, systolic murmur Pulses: PRESENT: normal dorsalis pedis pul Vascular exam: PRESENT: normal capillary refill GI/Abdominal exam: PRESENT: normal bowel sounds, soft. ABSENT: distended, guarding, mass, organolmegaly, rebound, tenderness Rectal exam: PRESENT: deferred Extremities exam: PRESENT: full ROM. ABSENT: calf tenderness, clubbing, pedal edema Neurological exam: PRESENT: alert, awake, oriented to person, oriented to place, oriented to time, oriented to situation, CN II-XII grossly intact. ABSENT: motor sensory deficit Psychiatric exam: PRESENT: appropriate affect, normal mood. ABSENT: homicidal ideation, suicidal ideation Skin exam: PRESENT: dry, intact, warm. ABSENT: cyanosis, rash Results Laboratory Results: 05/31/19 04:14 05/31/19 04:14 05/08/19 05/15/19 05/29/19 12:26 17:15 23:24 Creatine Kinase 70 CK-MB (CK-2) 3.60 Troponin I 0.084 NT-Pro-B Natriuret Pep 594 H 05/30/19 05/30/19 08:15 08:15 Creatine Kinase 22 L CK-MB (CK-2) 3.64 Troponin I 0.092 NT-Pro-B Natriuret Pep Impressions: Thyroid Ultrasound 05/16/19 08:00 IMPRESSION: Multinodular goiter as detailed above. Within the left lobe of thyroid gland there is a TR 3 nodule that measures approximately 1.5 cm. Thoracentesis Ultrasound 05/17/19 08:00 IMPRESSION: Successful ultrasound-guided placement of a 10 [place]se all-purpose drainage catheter into the fluid-filled right pleural space. Thoracentesis 05/20/19 00:00 IMPRESSION: SUCCESSFUL PLACEMENT OF A RIGHT SIDED CHEST TUBE USING CT GUIDANCE. Chest CT 05/28/19 00:00 IMPRESSION: 1. Persistent right pleural effusion status post right chest tube placement. Persistent collapse of right lower lobe and middle lobe. No pneumothorax. 2. Developing airspace disease the left lower lobe may represent concurrent infection or aspiration. 3. Bone metastasis. Head CT 05/31/19 00:00 IMPRESSION: No acute intracranial abnormality. EVIDENCE OF ACUTE STROKE: NO. Chest X-Ray 06/01/19 00:00 IMPRESSION: NO CHANGE IN THE LARGE RIGHT PLEURAL EFFUSION. Assessment & Plan - Diagnosis (1) Malignant pleural effusion Is this a current diagnosis for this admission?: Yes Plan: Improving, hopefully fluid output will improve enough to remove the tube. (2) Lung cancer Qualifiers: Laterality: right Lung location: lower lobe of lung Qualified Code(s): C34.31 - Malignant neoplasm of lower lobe, right bronchus or lung Is this a current diagnosis for this admission?: Yes Plan: We have ordered her oral medication and would be potentially initiating therapy soon. Awaiting platelet counts. (3) Effusion, right knee Is this a current diagnosis for this admission?: Yes Plan: Asked nursing to get physical therapy involved to get her up and moving. - Time Time Spent with patient: 35 or more minutes
[2019-06-01] MEDS: INSULIN LISPRO 100 UNIT/ML 3 ML VIAL SUBCUT SCH ×4 (10:28→23:31)
[2019-06-01] MEDS: LISINOPRIL 5 MG TABLET PO SCH (10:56)
[2019-06-01] MEDS: METOPROLOL SUCCINATE 25 MG TAB.SR.24H PO SCH ×2 (10:57→22:02)
[2019-06-01] MEDS: FAMOTIDINE 20 MG TABLET PO SCH ×2 (10:57→22:02)
[2019-06-01] MEDS: DIGOXIN 0.25 MG TABLET PO SCH (10:57)
[2019-06-01] MEDS: LIDOCAINE 5% (700 MG) TRANSDERMAL ADH..PATCH TP SCH (10:58)
[2019-06-01 10:59] LABS: HEMATOCRIT 26.5 % (36.0-47.0); HEMOGLOBIN 8.5 g/dL (12.0-15.5); MEAN CORPUSCULAR HGB CONC 32.1 g/dL (32.0-36.0); MEAN CORPUSCULAR VOLUME 93 fl (80-97); RED BLOOD COUNT 2.84 10^6/uL (3.72-5.28); WHITE BLOOD COUNT 19.4 10^3/uL (4.0-10.5)
[2019-06-01 11:43] LABS: ABSOLUTE LYMPHOCYTES# (MANUAL) 2.5 10^3/uL (0.5-4.7); ABSOLUTE MONOCYTES # (MANUAL) 1.2 10^3/uL (0.1-1.4); BASOPHILS % (MANUAL) 0 % (0-2); EOSINOPHILS % (MANUAL) 0 % (0-6); LYMPHOCYTES % (MANUAL) 11 % (13-45); MONOCYTES % (MANUAL) 6 % (3-13); SEGMENTED NEUTROPHILS % (MAN) 81 % (42-78); TOTAL CELLS COUNTED 100
[2019-06-01 11:44] LABS: PLATELET COMMENT DECREASED; POLYCHROMASIA SLIGHT; RBC MORPHOLOGY COMMENT NORMO-CYTIC/CHROMIC
[2019-06-01 11:48] LABS: PLATELET COUNT 69 10^3/uL (150-450)
--- NOTE | 2019-06-01 14:44 | PDOC PROGRESS REPORT ---
Subjective Progress Note for:: 06/01/19 Reason For Visit: RIGHT KNEE PAIN 06/01/2019 Long and complicated admission with multiple setbacks and complications. Roxy complaint started out being right knee pain with hemarthrosis Patient also has metastatic lung cancer recently diagnosed Physical Exam Vital Signs: Temp Pulse Resp BP Pulse Ox 100.2 F 145 H 23 H 166/81 H 91 L 06/01/19 11:07 06/01/19 11:22 06/01/19 11:22 06/01/19 11:07 06/01/19 11:22 Pulse Oximeter Nocturnal Start: 05/14/19 13:35 Freq: RTQ4 Status: Complete Protocol: Document 05/15/19 07:26 CMI (Rec: 05/15/19 07:27 CMI [email or web address]) Nocturnal Pulse Oximetry Equipment Usage Equipment Discontinued Continuous SpO2 Machine # 5 Intake & Output 05/31/19 06/01/19 06/02/19 06:59 06:59 06:59 Intake Total 3655 2225 1118 Output Total 3320 1050 350 Balance 335 1175 768 Weight 107.3 kg 106.3 kg General appearance: PRESENT: mild distress, other - Confused hallucinating disoriented Respiratory exam: PRESENT: clear to auscultation shivam, other - Tube in place. A BSENT: rales, rhonchi, wheezes Neurological exam: PRESENT: altered Psychiatric exam: PRESENT: agitated, unusual affect Results Laboratory Results: 06/01/19 10:35 05/31/19 04:14 06/01/19 10:35 WBC 19.4 H RBC 2.84 L Hgb 8.5 L Hct 26.5 L MCV 93 MCH 30.0 MCHC 32.1 RDW 15.0 H Plt Count 69 L Seg Neutrophils % Not Reportable 05/08/19 05/15/19 05/29/19 12:26 17:15 23:24 Creatine Kinase 70 CK-MB (CK-2) 3.60 Troponin I 0.084 NT-Pro-B Natriuret Pep 594 H 05/30/19 05/30/19 08:15 08:15 Creatine Kinase 22 L CK-MB (CK-2) 3.64 Troponin I 0.092 NT-Pro-B Natriuret Pep Impressions: Thyroid Ultrasound 05/16/19 08:00 IMPRESSION: Multinodular goiter as detailed above. Within the left lobe of thyroid gland there is a TR 3 nodule that measures approximately 1.5 cm. Thoracentesis Ultrasound 05/17/19 08:00 IMPRESSION: Successful ultrasound-guided placement of a 10 [place] all-purpose drainage catheter into the fluid-filled right pleural space. Thoracentesis 05/20/19 00:00 IMPRESSION: SUCCESSFUL PLACEMENT OF A RIGHT SIDED CHEST TUBE USING CT GUIDANCE. Chest CT 05/28/19 00:00 IMPRESSION: 1. Persistent right pleural effusion status post right chest tube placement. Persistent collapse of right lower lobe and middle lobe. No pneumothorax. 2. Developing airspace disease the left lower lobe may represent concurrent infection or aspiration. 3. Bone metastasis. Head CT 05/31/19 00:00 IMPRESSION: No acute intracranial abnormality. EVIDENCE OF ACUTE STROKE: NO. Chest X-Ray 06/01/19 00:00 IMPRESSION: NO CHANGE IN THE LARGE RIGHT PLEURAL EFFUSION. Assessment and Plan - Diagnosis (1) SOLEDAD (acute kidney injury) Is this a current diagnosis for this admission?: Yes (2) Acute encephalopathy Is this a current diagnosis for this admission?: Yes (3) Acute respiratory failure Qualifiers: Respiratory failure complication: hypoxia and hypercapnia Qualified Code(s): J96.01 - Acute respiratory failure with hypoxia; J96.02 - Acute respiratory failure with hypercapnia Is this a current diagnosis for this admission?: Yes (4) Bone metastasis Is this a current diagnosis for this admission?: Yes (5) Effusion, right knee Is this a current diagnosis for this admission?: Yes (6) Hemarthrosis following procedure Qualifiers: Encounter type: initial encounter Qualified Code(s): T88.8XXA - Other specified complications of surgical and medical care, not elsewhere classified, initial encounter; M25.00 - Hemarthrosis, unspecified joint Is this a current diagnosis for this admission?: Yes (7) Lung cancer Qualifiers: Laterality: right Lung location: lower lobe of lung Qualified Code(s): C34.31 - Malignant neoplasm of lower lobe, right bronchus or lung Is this a current diagnosis for this admission?: Yes - Plan Summary Summary: 06/01/2019 Had a long discussion this morning with Dr. Nye hematology oncology concerning this patient. Have gone over her entire hospitalization and admission Been is in the room this morning on rounds. He got 1 of his daughters on the phone while we discussed her care He is concerned about her agitation and confusion what seems to be worsening over the last week according to the patient. Patient could be suffering from ICU psychosis, or possibly even having problems secondary to the Ativan that we are given her Temperature 98.7 pulse is normally fast around 115, blood pressure 150/67, O2 sat between 96 and 100% on 2 to 3 L either BiPAP or nasal cannula Count today is 9.7 hemoglobin 7.7 BUN is gone from 49 down to 27 creatinine is gone from 1.13 down to 0.87 Is around 200 All cultures are negative Patient is receiving daily chest tube aspirations by general surgery Patient has stage IV lung cancer with malignant pleural effusion Per family patient is a full code - Time Time Spent with patient: 35 or more minutes
[2019-06-01 16:05] LABS: INTERNATIONAL RATION (INR) 1.37
[2019-06-01 16:06] LABS: PARTIAL THROMBOPLASTIN TIME 32.8 SEC (23.5-35.8)
[2019-06-02] MEDS: LORAZEPAM INJ 2 MG/1 ML VIAL IV PRN (00:12)
[2019-06-02] MEDS: NORMAL SALINE 1000 ML 1,000 ML IV PRN ×2 (07:08→13:43)
[2019-06-02 07:50] LABS: HEMATOCRIT 25.2 % (36.0-47.0); MEAN CORPUSCULAR HEMOGLOBIN 29.4 pg (27.0-33.4); MEAN CORPUSCULAR HGB CONC 31.8 g/dL (32.0-36.0); MEAN CORPUSCULAR VOLUME 93 fl (80-97); RED BLOOD COUNT 2.72 10^6/uL (3.72-5.28); WHITE BLOOD COUNT 18.3 10^3/uL (4.0-10.5)
[2019-06-02 08:21] LABS: ABSOLUTE LYMPHOCYTES# (MANUAL) 1.6 10^3/uL (0.5-4.7); ABSOLUTE MONOCYTES # (MANUAL) 1.6 10^3/uL (0.1-1.4); BASOPHILS % (MANUAL) 0 % (0-2); EOSINOPHILS % (MANUAL) 0 % (0-6); LYMPHOCYTES % (MANUAL) 9 % (13-45); MONOCYTES % (MANUAL) 9 % (3-13); SEGMENTED NEUTROPHILS % (MAN) 82 % (42-78); TOTAL CELLS COUNTED 100
[2019-06-02 08:24] LABS: ANISOCYTOSIS SLIGHT; OVALOCYTES 1+; PLATELET COMMENT DECREASED; POIKILOCYTOSIS 1+; SCHISTOCYTES 1+
[2019-06-02 08:25] LABS: PLATELET COUNT 62 10^3/uL (150-450)
--- NOTE | 2019-06-02 08:42 | PDOC PROGRESS REPORT ---
Subjective Progress Note for:: 06/02/19 Subjective:: Patient still quite confused throughout the last 24 hours. Continues to say she just wants to go home. Had nursing discussed with respiratory therapy who felt that patient would not be able to come off BiPAP. But have asked for a pulmonary consult to help delineate this issue. Had long discussion with the son at bedside today. Platelet count was better at 69 yesterday. Reason For Visit: RIGHT KNEE PAIN Physical Exam Vital Signs: Temp Pulse Resp BP Pulse Ox 98.3 F 115 H 20 154/81 H 100 06/02/19 08:00 06/02/19 08:00 06/02/19 08:00 06/02/19 08:00 06/02/19 08:00 Pulse Oximeter Nocturnal Start: 05/14/19 13:35 Freq: RTQ4 Status: Complete Protocol: Document 05/15/19 07:26 CMI (Rec: 05/15/19 07:27 CMI [email or web address]) Nocturnal Pulse Oximetry Equipment Usage Equipment Discontinued Continuous SpO2 Machine # 5 Intake & Output 06/01/19 06/02/19 06/03/19 06:59 06:59 06:59 Intake Total 2225 3355 Output Total 1050 1025 Balance 1175 2330 Weight 106.3 kg 106.5 kg General appearance: PRESENT: no acute distress, well-developed, well-nourished Head exam: PRESENT: atraumatic, normocephalic Eye exam: PRESENT: conjunctiva pink, EOMI, PERRLA. ABSENT: scleral icterus Ear exam: PRESENT: normal external ear exam Mouth exam: PRESENT: moist, tongue midline Neck exam: ABSENT: carotid bruit, JVD, lymphadenopathy, thyromegaly Respiratory exam: PRESENT: clear to auscultation shivam. ABSENT: rales, rhonchi, wheezes Cardiovascular exam: PRESENT: RRR. ABSENT: diastolic murmur, rubs, systolic mu rmur Pulses: PRESENT: normal dorsalis pedis pul Vascular exam: PRESENT: normal capillary refill GI/Abdominal exam: PRESENT: normal bowel sounds, soft. ABSENT: distended, guarding, mass, organolmegaly, rebound, tenderness Rectal exam: PRESENT: deferred Extremities exam: PRESENT: full ROM. ABSENT: calf tenderness, clubbing, pedal edema Neurological exam: PRESENT: alert, awake, oriented to person, oriented to place, oriented to time, oriented to situation, CN II-XII grossly intact. ABSENT: motor sensory deficit Psychiatric exam: PRESENT: appropriate affect, normal mood. ABSENT: homicidal ideation, suicidal ideation Skin exam: PRESENT: dry, intact, warm. ABSENT: cyanosis, rash Results Laboratory Results: 06/02/19 06:25 05/31/19 04:14 06/01/19 06/01/19 06/01/19 10:35 15:31 15:31 WBC 19.4 H RBC 2.84 L Hgb 8.5 L Hct 26.5 L MCV 93 MCH 30.0 MCHC 32.1 RDW 15.0 H Plt Count 69 L Seg Neutrophils % Not Reportable Lactic Acid 1.4 Magnesium Ammonia 13.0 06/02/19 06/02/19 06:25 06:25 WBC 18.3 H RBC 2.72 L Hgb 8.0 L Hct 25.2 L MCV 93 MCH 29.4 MCHC 31.8 L RDW 15.0 H Plt Count 62 L Seg Neutrophils % Not Reportable Lactic Acid Magnesium 1.9 Ammonia 05/08/19 05/15/19 05/29/19 12:26 17:15 23:24 Creatine Kinase 70 CK-MB (CK-2) 3.60 Troponin I 0.084 NT-Pro-B Natriuret Pep 594 H 05/30/19 05/30/19 08:15 08:15 Creatine Kinase 22 L CK-MB (CK-2) 3.64 Troponin I 0.092 NT-Pro-B Natriuret Pep Impressions: Thyroid Ultrasound 05/16/19 08:00 IMPRESSION: Multinodular goiter as detailed above. Within the left lobe of thyroid gland there is a TR 3 nodule that measures approximately 1.5 cm. Thoracentesis Ultrasound 05/17/19 08:00 IMPRESSION: Successful ultrasound-guided placement of a 10 Italian all-purpose drainage catheter into the fluid-filled right pleural space. Thoracentesis 05/20/19 00:00 IMPRESSION: SUCCESSFUL PLACEMENT OF A RIGHT SIDED CHEST TUBE USING CT GUIDANCE. Chest CT 05/28/19 00:00 IMPRESSION: 1. Persistent right pleural effusion status post right chest tube placement. Persistent collapse of right lower lobe and middle lobe. No pneumothorax. 2. Developing airspace disease the left lower lobe may represent concurrent infection or aspiration. 3. Bone metastasis. Head CT 05/31/19 00:00 IMPRESSION: No acute intracranial abnormality. EVIDENCE OF ACUTE STROKE: NO. Chest X-Ray 06/01/19 00:00 IMPRESSION: NO CHANGE IN THE LARGE RIGHT PLEURAL EFFUSION. Assessment & Plan - Diagnosis (1) Malignant pleural effusion Is this a current diagnosis for this admission?: Yes Plan: Continue with chest tube, but fluid is improving. (2) Lung cancer Qualifiers: Laterality: right Lung location: lower lobe of lung Qualified Code(s): C34.31 - Malignant neoplasm of lower lobe, right bronchus or lung Is this a current diagnosis for this admission?: Yes Plan: Oral therapy is pending, hopefully will be delivered soon. (3) Effusion, right knee Is this a current diagnosis for this admission?: Yes Plan: Improved but patient not really getting up because of the confusion - Time Time Spent with patient: 35 or more minutes
[2019-06-02] MEDS: MAGNESIUM OXIDE 400 MG TABLET PO SCH ×2 (09:04→17:02)
[2019-06-02] MEDS: INSULIN LISPRO 100 UNIT/ML 3 ML VIAL SUBCUT SCH ×3 (09:05→17:31)
[2019-06-02] MEDS: FAMOTIDINE 20 MG TABLET PO SCH ×2 (10:03→22:58)
[2019-06-02] MEDS: LISINOPRIL 5 MG TABLET PO SCH (10:04)
[2019-06-02] MEDS: METOPROLOL SUCCINATE 25 MG TAB.SR.24H PO SCH ×2 (10:04→22:58)
[2019-06-02] MEDS: LIDOCAINE 5% (700 MG) TRANSDERMAL ADH..PATCH TP SCH (10:05)
[2019-06-02] MEDS: DIGOXIN 0.25 MG TABLET PO SCH (10:05)
--- NOTE | 2019-06-02 12:32 | RADIOLOGY REPORT (SQ) ---
EXAM DESCRIPTION: CHEST SINGLE VIEW COMPLETED DATE/TIME: 06/02/2019 12:10 pm REASON FOR STUDY: pleural effusion COMPARISON: 06/01/2019 NUMBER OF VIEWS: One view. TECHNIQUE: Single frontal radiographic image of the chest acquired. LIMITATIONS: None. FINDINGS: LUNGS AND PLEURA: Stable appearance. Right-sided chest tube remains in place. MEDIASTINUM AND HILAR STRUCTURES: Stable heart size and mediastinal structures. HEART AND VASCULAR STRUCTURES: Stable appearance. BONES: No acute findings. HARDWARE: None in the chest. OTHER: No other significant finding. IMPRESSION: STABLE APPEARANCE OF THE CHEST. TECHNICAL DOCUMENTATION: JOB ID: [id number] [employer]- All Rights Reserved Reading location - IP/workstation name: [email or web address]
[2019-06-02] MEDS: HYDRALAZINE HCL INJ/PF 20 MG/1 ML SDV IV PRN (13:59)
--- NOTE | 2019-06-02 14:10 | PDOC PROGRESS REPORT ---
Subjective Progress Note for:: 06/02/19 Reason For Visit: RIGHT KNEE PAIN 06/02/2019 1lung cancer #2 malignant pleural effusion #3 confusion Physical Exam Vital Signs: Temp Pulse Resp BP Pulse Ox 97.2 F 115 H 26 H 160/100 H 97 06/02/19 11:39 06/02/19 12:00 06/02/19 12:00 06/02/19 11:39 06/02/19 12:00 Pulse Oximeter Nocturnal Start: 05/14/19 13:35 Freq: RTQ4 Status: Complete Protocol: Document 05/15/19 07:26 CMI (Rec: 05/15/19 07:27 CMI [email or web address]) Nocturnal Pulse Oximetry Equipment Usage Equipment Discontinued Continuous SpO2 Machine # 5 Intake & Output 06/01/19 06/02/19 06/03/19 06:59 06:59 06:59 Intake Total 2225 3355 1227 Output Total 1050 1025 450 Balance 1175 2330 777 Weight 106.3 kg 106.5 kg General appearance: PRESENT: mild distress, other - Secondary to confusion Respiratory exam: PRESENT: decreased breath sounds - Right lower lobe Cardiovascular exam: PRESENT: RRR. ABSENT: diastolic murmur, rubs, systolic murmur Neurological exam: PRESENT: altered Psychiatric exam: PRESENT: agitated, anxious, unusual affect Results Laboratory Results: 06/02/19 06:25 05/31/19 04:14 06/01/19 06/01/19 06/02/19 15:31 15:31 06:25 WBC RBC Hgb Hct MCV MCH MCHC RDW Plt Count Seg Neutrophils % Lactic Acid 1.4 Magnesium 1.9 Ammonia 13.0 06/02/19 06:25 WBC 18.3 H RBC 2.72 L Hgb 8.0 L Hct 25.2 L MCV 93 MCH 29.4 MCHC 31.8 L RDW 15.0 H Plt Count 62 L Seg Neutrophils % Not Reportable Lactic Acid Magnesium Ammonia 05/08/19 05/15/19 05/29/19 12:26 17:15 23:24 Creatine Kinase 70 CK-MB (CK-2) 3.60 Troponin I 0.084 NT-Pro-B Natriuret Pep 594 H 05/30/19 05/30/19 08:15 08:15 Creatine Kinase 22 L CK-MB (CK-2) 3.64 Troponin I 0.092 NT-Pro-B Natriuret Pep Impressions: Thyroid Ultrasound 05/16/19 08:00 IMPRESSION: Multinodular goiter as detailed above. Within the left lobe of thyroid gland there is a TR 3 nodule that measures approximately 1.5 cm. Thoracentesis Ultrasound 05/17/19 08:00 IMPRESSION: Successful ultrasound-guided placement of a 10 Spanish all-purpose drainage catheter into the fluid-filled right pleural space. Thoracentesis 05/20/19 00:00 IMPRESSION: SUCCESSFUL PLACEMENT OF A RIGHT SIDED CHEST TUBE USING CT GUIDANCE. Chest CT 05/28/19 00:00 IMPRESSION: 1. Persistent right pleural effusion status post right chest tube placement. Persistent collapse of right lower lobe and middle lobe. No pneumothorax. 2. Developing airspace disease the left lower lobe may represent concurrent infection or aspiration. 3. Bone metastasis. Head CT 05/31/19 00:00 IMPRESSION: No acute intracranial abnormality. EVIDENCE OF ACUTE STROKE: NO. Chest X-Ray 06/02/19 00:00 IMPRESSION: STABLE APPEARANCE OF THE CHEST. Assessment and Plan - Diagnosis (1) SOLEDAD (acute kidney injury) Is this a current diagnosis for this admission?: Yes (2) Acute encephalopathy Is this a current diagnosis for this admission?: Yes (3) Acute respiratory failure Qualifiers: Respiratory failure complication: hypoxia and hypercapnia Qualified Code(s): J96.01 - Acute respiratory failure with hypoxia; J96.02 - Acute respiratory failure with hypercapnia Is this a current diagnosis for this admission?: Yes (4) Bone metastasis Is this a current diagnosis for this admission?: Yes (5) Effusion, right knee Is this a current diagnosis for this admission?: Yes (6) Hemarthrosis following procedure Qualifiers: Encounter type: initial encounter Qualified Code(s): T88.8XXA - Other specified complications of surgical and medical care, not elsewhere classified, initial encounter; M25.00 - Hemarthrosis, unspecified joint Is this a current diagnosis for this admission?: Yes (7) Lung cancer Qualifiers: Laterality: right Lung location: lower lobe of lung Qualified Code(s): C34.31 - Malignant neoplasm of lower lobe, right bronchus or lung Is this a current diagnosis for this admission?: Yes - Plan Summary Summary: 06/01/2019 Had a long discussion this morning with Dr. Nye hematology oncology concerning this patient. Have gone over her entire hospitalization and admission Been is in the room this morning on rounds. He got 1 of his daughters on the phone while we discussed her care He is concerned about her agitation and confusion what seems to be worsening over the last week according to the patient. Patient could be suffering from ICU psychosis, or possibly even having problems secondary to the Ativan that we are given her Temperature 98.7 pulse is normally fast around 115, blood pressure 150/67, O2 sat between 96 and 100% on 2 to 3 L either BiPAP or nasal cannula Count today is 9.7 hemoglobin 7.7 BUN is gone from 49 down to 27 creatinine is gone from 1.13 down to 0.87 Is around 200 All cultures are negative Patient is receiving daily chest tube aspirations by general surgery Patient has stage IV lung cancer with malignant pleural effusion Per family patient is a full code 06/02/2019 Consult to psychiatry today for her confusion ,agitation, and delirium Patient's white count is back up to about 18,000 it had gotten down to 9700 Sugars are running in the low 200s, magnesium levels 1.9 ammonia levels 13 Patient may need long-term hospital care, discharge planning is approaching the family concerning this Blood cultures and urine cultures are still negative - Time Time Spent with patient: 25-34 minutes
--- NOTE | 2019-06-02 15:51 | PDOC PROGRESS REPORT ---
Subjective Progress Note for:: 06/02/19 Subjective:: 64-year-old female with stage IV lung cancer, malignant pleural effusion, and now a pleurocutaneous fistula. The patient denies fevers, chills, abdominal pain. She is short of breath, and on BiPAP. She is still confused. Reason For Visit: RIGHT KNEE PAIN Physical Exam Vital Signs: Temp Pulse Resp BP Pulse Ox 97.2 F 115 H 26 H 160/100 H 97 06/02/19 11:39 06/02/19 12:00 06/02/19 12:00 06/02/19 11:39 06/02/19 12:00 Pulse Oximeter Nocturnal Start: 05/14/19 13:35 Freq: RTQ4 Status: Complete Protocol: Document 05/15/19 07:26 CMI (Rec: 05/15/19 07:27 CMI [email or web address]) Nocturnal Pulse Oximetry Equipment Usage Equipment Discontinued Continuous SpO2 Machine # 5 Intake & Output 06/01/19 06/02/19 06/03/19 06:59 06:59 06:59 Intake Total 2225 3355 1227 Output Total 1050 1025 450 Balance 1175 2330 777 Weight 106.3 kg 106.5 kg Exam: General appearance: PRESENT: obese Head exam: PRESENT: atraumatic, normocephalic Eye exam: PRESENT: EOMI, PERRLA. ABSENT: scleral icterus Mouth exam: PRESENT: moist, neck supple Neck exam: ABSENT: tenderness, thyromegaly, tracheal deviation Respiratory exam: PRESENT: tachypnea, other - decreased BS on right, coarse BS on left. Small caliber posterior chest tube in place. No air leak, fluid appears serous. Cardiovascular exam: PRESENT: tachycardia GI/Abdominal exam: PRESENT: soft. ABSENT: distended, guarding, tenderness Extremities exam: ABSENT: clubbing Musculoskeletal exam: ABSENT: deformity Neurological exam: PRESENT: awake, oriented to person, CN II-XII grossly intact. ABSENT: oriented to place, oriented to time, oriented to situation Psychiatric exam: PRESENT: agitated, anxious Focused psych exam: PRESENT: delusional, restlessness Skin exam: ABSENT: erythema, jaundice Results Laboratory Results: 06/02/19 06:25 05/31/19 04:14 06/01/19 06/01/19 06/02/19 15:31 15:31 06:25 WBC RBC Hgb Hct MCV MCH MCHC RDW Plt Count Seg Neutrophils % Lactic Acid 1.4 Magnesium 1.9 Ammonia 13.0 06/02/19 06:25 WBC 18.3 H RBC 2.72 L Hgb 8.0 L Hct 25.2 L MCV 93 MCH 29.4 MCHC 31.8 L RDW 15.0 H Plt Count 62 L Seg Neutrophils % Not Reportable Lactic Acid Magnesium Ammonia 05/08/19 05/15/19 05/29/19 12:26 17:15 23:24 Creatine Kinase 70 CK-MB (CK-2) 3.60 Troponin I 0.084 NT-Pro-B Natriuret Pep 594 H 05/30/19 05/30/19 08:15 08:15 Creatine Kinase 22 L CK-MB (CK-2) 3.64 Troponin I 0.092 NT-Pro-B Natriuret Pep Impressions: Thyroid Ultrasound 05/16/19 08:00 IMPRESSION: Multinodular goiter as detailed above. Within the left lobe of thyroid gland there is a TR 3 nodule that measures approximately 1.5 cm. Thoracentesis Ultrasound 05/17/19 08:00 IMPRESSION: Successful ultrasound-guided placement of a 10 Icelandic all-purpose drainage catheter into the fluid-filled right pleural space. Thoracentesis 05/20/19 00:00 IMPRESSION: SUCCESSFUL PLACEMENT OF A RIGHT SIDED CHEST TUBE USING CT GUIDANCE. Chest CT 05/28/19 00:00 IMPRESSION: 1. Persistent right pleural effusion status post right chest tube placement. Persistent collapse of right lower lobe and middle lobe. No pneumothorax. 2. Developing airspace disease the left lower lobe may represent concurrent infection or aspiration. 3. Bone metastasis. Head CT 05/31/19 00:00 IMPRESSION: No acute intracranial abnormality. EVIDENCE OF ACUTE STROKE: NO. Chest X-Ray 06/02/19 00:00 IMPRESSION: STABLE APPEARANCE OF THE CHEST. 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 She is status post chemical pleurodesis. I have been manually aspirating her chest tube once per day. She had no additional serous fluid aspirated from her chest tube yesterday by me. Today, her chest tube output appears serous. Her chest x-ray is improved from previous. She has had approximately 100 cc of serous fluid out over 24 hours. The catheter appears to be draining much more effectively, now that the fluid has thinned. Continue the chest tube suction at 25 cm of water. Continue supportive care.
--- NOTE | 2019-06-02 16:32 | PSYCHOLOGICAL NOTE ---
Psych Note - Psych Note Date seen by psych provider: 06/02/19 Psych Note: Medication recommendations per [facility]'s contracted psychiatrist Dr. Alexandr GODOY are as follows Depakote sprinkles (or Depakene if needed) to 50 mg twice daily Impression\plan: Chart review conducted. Medication recommendations have been provided. Patient will be seen tomorrow. Dr. Alex was consulted to care management of this patient; attending physicians in agreement with recommendations and disposition.
[2019-06-02] MEDS: VALPROATE SODIUM SYRUP 250 MG/5 ML UDCUP PO SCH (22:57)
[2019-06-03] MEDS: INSULIN LISPRO 100 UNIT/ML 3 ML VIAL SUBCUT SCH ×4 (06:47→18:48)
[2019-06-03 07:02] LABS: HEMATOCRIT 24.3 % (36.0-47.0); MEAN CORPUSCULAR HEMOGLOBIN 29.8 pg (27.0-33.4); MEAN CORPUSCULAR HGB CONC 31.8 g/dL (32.0-36.0); MEAN CORPUSCULAR VOLUME 94 fl (80-97); RED BLOOD COUNT 2.59 10^6/uL (3.72-5.28); RED CELL DISTRIBUTION WIDTH 15.1 % (11.5-14.0); WHITE BLOOD COUNT 15.8 10^3/uL (4.0-10.5)
[2019-06-03 07:10] LABS: HEMOGLOBIN 7.7 g/dL (12.0-15.5); PLATELET COUNT 73 10^3/uL (150-450)
[2019-06-03 08:09] LABS: ABSOLUTE LYMPHOCYTES# (MANUAL) 1.6 10^3/uL (0.5-4.7); ABSOLUTE MONOCYTES # (MANUAL) 0.3 10^3/uL (0.1-1.4); BASOPHILS % (MANUAL) 0 % (0-2); EOSINOPHILS % (MANUAL) 0 % (0-6); LYMPHOCYTES % (MANUAL) 10 % (13-45); MONOCYTES % (MANUAL) 2 % (3-13); SEGMENTED NEUTROPHILS % (MAN) 88 % (42-78); TOTAL CELLS COUNTED 100
[2019-06-03 08:12] LABS: ANISOCYTOSIS SLIGHT; PLATELET COMMENT DECREASED; POLYCHROMASIA SLIGHT
--- NOTE | 2019-06-03 11:06 | PDOC PROGRESS REPORT ---
Subjective Progress Note for:: 06/03/19 Reason For Visit: RIGHT KNEE PAIN 06/03/2019 Patient admitted with probable septic knee joint and consequently has #2 lung cancer #3 malignant pleural effusion #4 confusion Physical Exam Vital Signs: Temp Pulse Resp BP Pulse Ox 98.1 F 110 H 18 140/68 H 98 06/03/19 08:26 06/03/19 08:26 06/03/19 08:26 06/03/19 08:26 06/03/19 08:26 Pulse Oximeter Nocturnal Start: 05/14/19 13:35 Freq: RTQ4 Status: Complete Protocol: Document 05/15/19 07:26 CMI (Rec: 05/15/19 07:27 CMI [email or web address]) Nocturnal Pulse Oximetry Equipment Usage Equipment Discontinued Continuous SpO2 Machine # 5 Intake & Output 06/02/19 06/03/19 06/04/19 06:59 06:59 06:59 Intake Total 3355 1717 Output Total 1025 1300 Balance 2330 417 Weight 106.5 kg General appearance: PRESENT: no acute distress, other - Patient is actually trying to communicate with me today, seeming to make more eye contact Respiratory exam: PRESENT: clear to auscultation shivam. ABSENT: rales, rhonchi, wheezes Cardiovascular exam: PRESENT: RRR. ABSENT: diastolic murmur, rubs, systolic murmur Neurological exam: PRESENT: altered Psychiatric exam: PRESENT: unusual affect, other Results Laboratory Results: 06/03/19 06:14 05/31/19 04:14 06/03/19 06:14 WBC 15.8 H RBC 2.59 L Hgb 7.7 L Hct 24.3 L MCV 94 MCH 29.8 MCHC 31.8 L RDW 15.1 H Plt Count 73 L Seg Neutrophils % Not Reportable 05/08/19 05/15/19 05/29/19 12:26 17:15 23:24 Creatine Kinase 70 CK-MB (CK-2) 3.60 Troponin I 0.084 NT-Pro-B Natriuret Pep 594 H 05/30/19 05/30/19 08:15 08:15 Creatine Kinase 22 L CK-MB (CK-2) 3.64 Troponin I 0.092 NT-Pro-B Natriuret Pep Impressions: Thyroid Ultrasound 05/16/19 08:00 IMPRESSION: Multinodular goiter as detailed above. Within the left lobe of thyroid gland there is a TR 3 nodule that measures approximately 1.5 cm. Thoracentesis Ultrasound 05/17/19 08:00 IMPRESSION: Successful ultrasound-guided placement of a 10 Macedonian all-purpose drainage catheter into the fluid-filled right pleural space. Thoracentesis 05/20/19 00:00 IMPRESSION: SUCCESSFUL PLACEMENT OF A RIGHT SIDED CHEST TUBE USING CT GUIDANCE. Chest CT 05/28/19 00:00 IMPRESSION: 1. Persistent right pleural effusion status post right chest tube placement. Persistent collapse of right lower lobe and middle lobe. No pneumothorax. 2. Developing airspace disease the left lower lobe may represent concurrent infection or aspiration. 3. Bone metastasis. Head CT 05/31/19 00:00 IMPRESSION: No acute intracranial abnormality. EVIDENCE OF ACUTE STROKE: NO. Chest X-Ray 06/02/19 00:00 IMPRESSION: STABLE APPEARANCE OF THE CHEST. Assessment and Plan - Diagnosis (1) SOLEDAD (acute kidney injury) Is this a current diagnosis for this admission?: Yes (2) Acute encephalopathy Is this a current diagnosis for this admission?: Yes (3) Acute respiratory failure Qualifiers: Respiratory failure complication: hypoxia and hypercapnia Qualified Code(s): J96.01 - Acute respiratory failure with hypoxia; J96.02 - Acute respiratory failure with hypercapnia Is this a current diagnosis for this admission?: Yes (4) Bone metastasis Is this a current diagnosis for this admission?: Yes (5) Effusion, right knee Is this a current diagnosis for this admission?: Yes (6) Hemarthrosis following procedure Qualifiers: Encounter type: initial encounter Qualified Code(s): T88.8XXA - Other specified complications of surgical and medical care, not elsewhere classified, initial encounter; M25.00 - Hemarthrosis, unspecified joint Is this a current diagnosis for this admission?: Yes (7) Lung cancer Qualifiers: Laterality: right Lung location: lower lobe of lung Qualified Code(s): C34.31 - Malignant neoplasm of lower lobe, right bronchus or lung Is this a current diagnosis for this admission?: Yes - Plan Summary Summary: 06/01/2019 Had a long discussion this morning with Dr. Nye hematology oncology co ncerning this patient. Have gone over her entire hospitalization and admission Been is in the room this morning on rounds. He got 1 of his daughters on the phone while we discussed her care He is concerned about her agitation and confusion what seems to be worsening over the last week according to the patient. Patient could be suffering from ICU psychosis, or possibly even having problems secondary to the Ativan that we are given her Temperature 98.7 pulse is normally fast around 115, blood pressure 150/67, O2 sat between 96 and 100% on 2 to 3 L either BiPAP or nasal cannula Count today is 9.7 hemoglobin 7.7 BUN is gone from 49 down to 27 creatinine is gone from 1.13 down to 0.87 Is around 200 All cultures are negative Patient is receiving daily chest tube aspirations by general surgery Patient has stage IV lung cancer with malignant pleural effusion Per family patient is a full code 06/02/2019 Consult to psychiatry today for her confusion ,agitation, and delirium Patient's white count is back up to about 18,000 it had gotten down to 9700 Sugars are running in the low 200s, magnesium levels 1.9 ammonia levels 13 Patient may need long-term hospital care, discharge planning is approaching the family concerning this Blood cultures and urine cultures are still negative 06/03/2019 Several family members in the room including her today Temperature is 98.9, she has not had a fever in over 96 hours Blood pressure stable ,pulse is running her usual around 120 She has maintained her oxygen saturation in the upper 90s on either nasal cannula or BiPAP He reports that patient had a much better night last night was less confused him to rest more comfortably. Ativan NOT given last night Started Depakene yesterday at the suggestion of psychiatry Continue daily consultations by general surgery. Discharge planning has started paperwork for long-term admission Count today is come down to 15,800, HEMOglobin is stable at 7.7, coags stable - Time Time Spent with patient: 25-34 minutes
--- NOTE | 2019-06-03 11:13 | PSYCHOLOGICAL NOTE ---
Psych Note - Psych Note Date seen by psych provider: 06/03/19 Time seen by psych provider: 09:30 Psych Note: Reason for Consult: Psychosis Clinician spoke with patient and patient's family at bedside per patient's request. Patient reports she is currently in pain. Patient is able to demonstrate that she is currently orientated to person place time and circumstance. Patient's family indicates they have noticed patient has difficulty in the evenings rather than during the day. Patient does not make eye contact with clinician and steadily stares directly toward the ceiling or top half of wall to the side. Patient's reports the patient did sleep well last night and have noticed significant improvement in patient's presentation. Clinician discussed any further concerns family had to include giving the patient's brain the needed time it needs to "reboot" after medical crisis. They report they feel comfortable with this plan of care and confirm they will contact [facility] staff if they have further concerns or questions for the behavioral health team. Medication recommendations per [facility]'s contracted psychiatrist Dr. Alexandr GODOY are as follows Depakote sprinkles (or Depakene if needed) 250 mg twice daily Impression\\plan: Patient is cleared from acute psychiatric services. Medication recommendations have been provided. Patient's family reports they feel comfortable with this plan of care. Please reconsult if any new concerns or questions arise. Dr. Alex was consulted to care management of this patient; attending physicians in agreement with recommendations and disposition.
--- NOTE | 2019-06-03 11:25 | PDOC PROGRESS REPORT ---
Subjective Progress Note for:: 06/03/19 Subjective:: Patient was more talkative this morning, did seem to remember what some things were going on over the last 24 hours. Mental status seems a little bit better. Had a long discussion with family at bedside. Reason For Visit: RIGHT KNEE PAIN Physical Exam Vital Signs: Temp Pulse Resp BP Pulse Ox 98.1 F 110 H 18 140/68 H 98 06/03/19 08:26 06/03/19 08:26 06/03/19 08:26 06/03/19 08:26 06/03/19 08:26 Pulse Oximeter Nocturnal Start: 05/14/19 13:35 Freq: RTQ4 Status: Complete Protocol: Document 05/15/19 07:26 CMI (Rec: 05/15/19 07:27 CMI [email or web address]) Nocturnal Pulse Oximetry Equipment Usage Equipment Discontinued Continuous SpO2 Machine # 5 Intake & Output 06/02/19 06/03/19 06/04/19 06:59 06:59 06:59 Intake Total 3355 1717 Output Total 1025 1300 Balance 2330 417 Weight 106.5 kg General appearance: PRESENT: no acute distress, well-developed, well-nourished Head exam: PRESENT: atraumatic, normocephalic Eye exam: PRESENT: conjunctiva pink, EOMI, PERRLA. ABSENT: scleral icterus Ear exam: PRESENT: normal external ear exam Mouth exam: PRESENT: moist, tongue midline Neck exam: ABSENT: carotid bruit, JVD, lymphadenopathy, thyromegaly Respiratory exam: PRESENT: clear to auscultation shivam. ABSENT: rales, rhonchi, wheezes Cardiovascular exam: PRESENT: RRR. ABSENT: diastolic murmur, rubs, systolic murmur Pulses: PRESENT: normal dorsalis pedis pul Vascular exam: PRESENT: normal capillary refill GI/Abdominal exam: PRESENT: normal bowel sounds, soft. ABSENT: distended, guarding, mass, organolmegaly, rebound, tenderness Rectal exam: PRESENT: deferred Extremities exam: PRESENT: full ROM. ABSENT: calf tenderness, clubbing, pedal edema Neurological exam: PRESENT: alert, awake, oriented to person, oriented to place, oriented to time, oriented to situation, CN II-XII grossly intact. ABSENT: motor sensory deficit Psychiatric exam: PRESENT: appropriate affect, normal mood. ABSENT: homicidal ideation, suicidal ideation Skin exam: PRESENT: dry, intact, warm. ABSENT: cyanosis, rash Results Laboratory Results: 06/03/19 06:14 05/31/19 04:14 06/03/19 06:14 WBC 15.8 H RBC 2.59 L Hgb 7.7 L Hct 24.3 L MCV 94 MCH 29.8 MCHC 31.8 L RDW 15.1 H Plt Count 73 L Seg Neutrophils % Not Reportable 05/08/19 05/15/19 05/29/19 12:26 17:15 23:24 Creatine Kinase 70 CK-MB (CK-2) 3.60 Troponin I 0.084 NT-Pro-B Natriuret Pep 594 H 05/30/19 05/30/19 08:15 08:15 Creatine Kinase 22 L CK-MB (CK-2) 3.64 Troponin I 0.092 NT-Pro-B Natriuret Pep Impressions: Thyroid Ultrasound 05/16/19 08:00 IMPRESSION: Multinodular goiter as detailed above. Within the left lobe of thyroid gland there is a TR 3 nodule that measures approximately 1.5 cm. Thoracentesis Ultrasound 05/17/19 08:00 IMPRESSION: Successful ultrasound-guided placement of a 10 Tajik all-purpose drainage catheter into the fluid-filled right pleural space. Thoracentesis 05/20/19 00:00 IMPRESSION: SUCCESSFUL PLACEMENT OF A RIGHT SIDED CHEST TUBE USING CT GUIDANCE. Chest CT 05/28/19 00:00 IMPRESSION: 1. Persistent right pleural effusion status post right chest tube placement. Persistent collapse of right lower lobe and middle lobe. No pneumothorax. 2. Developing airspace disease the left lower lobe may represent concurrent infection or aspiration. 3. Bone metastasis. Head CT 05/31/19 00:00 IMPRESSION: No acute intracranial abnormality. EVIDENCE OF ACUTE STROKE: NO. Chest X-Ray 06/02/19 00:00 IMPRESSION: STABLE APPEARANCE OF THE CHEST. Assessment & Plan - Diagnosis (1) Malignant pleural effusion Is this a current diagnosis for this admission?: Yes Plan: Seems to be improving, awaiting recommendations from surgery on when the tube can come out. (2) Lung cancer Qualifiers: Laterality: right Lung location: lower lobe of lung Qualified Code(s): C34.31 - Malignant neoplasm of lower lobe, right bronchus or lung Is this a current diagnosis for this admission?: Yes Plan: Oral medication is pending awaiting delivery, once it is delivered I believe her counts will probably be recovered enough to start therapy. (3) Effusion, right knee Is this a current diagnosis for this admission?: Yes Plan: Stable - Time Time Spent with patient: 35 or more minutes
[2019-06-03] MEDS ORDERED: RISPERIDONE 0.25 MG TABLET PO PRN (11:38)
[2019-06-03] MEDS: DIGOXIN 0.25 MG TABLET PO SCH (11:55)
[2019-06-03] MEDS: LISINOPRIL 5 MG TABLET PO SCH (11:55)
[2019-06-03] MEDS: FAMOTIDINE 20 MG TABLET PO SCH ×2 (11:56→22:16)
[2019-06-03] MEDS: METOPROLOL SUCCINATE 25 MG TAB.SR.24H PO SCH ×2 (11:56→22:16)
[2019-06-03] MEDS: LIDOCAINE 5% (700 MG) TRANSDERMAL ADH..PATCH TP SCH (12:08)
--- NOTE | 2019-06-03 12:45 | PDOC PROGRESS REPORT ---
Subjective Progress Note for:: 06/03/19 Subjective:: 64-year-old female with stage IV lung cancer, malignant pleural effusion, and now a pleurocutaneous fistula. The patient denies fevers, chills, abdominal pain. She is short of breath, and on BiPAP. She is still confused. Reason For Visit: RIGHT KNEE PAIN Physical Exam Vital Signs: Temp Pulse Resp BP Pulse Ox 98.1 F 110 H 18 140/68 H 98 06/03/19 08:26 06/03/19 08:26 06/03/19 08:26 06/03/19 08:26 06/03/19 08:26 Pulse Oximeter Nocturnal Start: 05/14/19 13:35 Freq: RTQ4 Status: Complete Protocol: Document 05/15/19 07:26 CMI (Rec: 05/15/19 07:27 CMI [id number]) Nocturnal Pulse Oximetry Equipment Usage Equipment Discontinued Continuous SpO2 Machine # 5 Intake & Output 06/02/19 06/03/19 06/04/19 06:59 06:59 06:59 Intake Total 3355 1717 Output Total 1025 1300 Balance 2330 417 Weight 106.5 kg Exam: General appearance: PRESENT: obese Head exam: PRESENT: atraumatic, normocephalic Eye exam: PRESENT: EOMI, PERRLA. ABSENT: scleral icterus Mouth exam: PRESENT: moist, neck supple Neck exam: ABSENT: tenderness, thyromegaly, tracheal deviation Respiratory exam: PRESENT: tachypnea, other - decreased BS on right, coarse BS on left. Small caliber posterior chest tube in place. No air leak, fluid appears serous. Cardiovascular exam: PRESENT: tachycardia GI/Abdominal exam: PRESENT: soft. ABSENT: distended, guarding, tenderness Extremities exam: ABSENT: clubbing Musculoskeletal exam: ABSENT: deformity Neurological exam: PRESENT: awake, oriented to person, CN II-XII grossly intact. ABSENT: oriented to place, oriented to time, oriented to situation Psychiatric exam: PRESENT: agitated, anxious Focused psych exam: PRESENT: delusional, restlessness Skin exam: ABSENT: erythema, jaundice Results Laboratory Results: 06/03/19 06:14 05/31/19 04:14 06/03/19 06:14 WBC 15.8 H RBC 2.59 L Hgb 7.7 L Hct 24.3 L MCV 94 MCH 29.8 MCHC 31.8 L RDW 15.1 H Plt Count 73 L Seg Neutrophils % Not Reportable 05/08/19 05/15/19 05/29/19 12:26 17:15 23:24 Creatine Kinase 70 CK-MB (CK-2) 3.60 Troponin I 0.084 NT-Pro-B Natriuret Pep 594 H 05/30/19 05/30/19 08:15 08:15 Creatine Kinase 22 L CK-MB (CK-2) 3.64 Troponin I 0.092 NT-Pro-B Natriuret Pep Impressions: Thyroid Ultrasound 05/16/19 08:00 IMPRESSION: Multinodular goiter as detailed above. Within the left lobe of thyroid gland there is a TR 3 nodule that measures approximately 1.5 cm. Thoracentesis Ultrasound 05/17/19 08:00 IMPRESSION: Successful ultrasound-guided placement of a 10 [place]ian all-purpose drainage catheter into the fluid-filled right pleural space. Thoracentesis 05/20/19 00:00 IMPRESSION: SUCCESSFUL PLACEMENT OF A RIGHT SIDED CHEST TUBE USING CT GUIDANCE. Chest CT 05/28/19 00:00 IMPRESSION: 1. Persistent right pleural effusion status post right chest tube placement. Persistent collapse of right lower lobe and middle lobe. No pneumothorax. 2. Developing airspace disease the left lower lobe may represent concurrent infection or aspiration. 3. Bone metastasis. Head CT 05/31/19 00:00 IMPRESSION: No acute intracranial abnormality. EVIDENCE OF ACUTE STROKE: NO. Chest X-Ray 06/02/19 00:00 IMPRESSION: STABLE APPEARANCE OF THE CHEST. 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 She is status post chemical pleurodesis. Today, her chest tube output appears serous. Her last chest x-ray is improved from previous. She has had approximately 300 cc of serous fluid out over 24 hours. The catheter appears to be draining much more effectively, now that the fluid has thinned. Continue the chest tube suction at 25 cm of water. Continue supportive care.
[2019-06-03] MEDS: DIVALPROEX SODIUM 125 MG CAP.SPRINK PO SCH (14:18)
[2019-06-03] MEDS: VALPROATE SODIUM SYRUP 250 MG/5 ML UDCUP PO SCH (16:47)
[2019-06-04 00:05] LABS: ALBUMIN 2.5 g/dL (3.5-5.0); ALKALINE PHOSPHATASE 137 U/L (38-126); ANION GAP 9 (5-19); ASPARTATE AMINO TRANSFERASE 48 U/L (14-36); BILIRUBIN,DIRECT 0.3 mg/dL (0.0-0.4); BILIRUBIN,TOTAL 0.6 mg/dL (0.2-1.3); BLOOD UREA NITROGEN 35 mg/dL (7-20); CALCIUM 9.6 mg/dL (8.4-10.2); CARBON DIOXIDE 20 mmol/L (22-30); CHLORIDE 113 mmol/L (98-107); GLUCOSE 196 mg/dL (75-110); TOTAL PROTEIN 5.4 g/dL (6.3-8.2)
[2019-06-04] MEDS: DIVALPROEX SODIUM 125 MG CAP.SPRINK PO SCH (01:00)
[2019-06-04] MEDS: INSULIN LISPRO 100 UNIT/ML 3 ML VIAL SUBCUT SCH ×4 (06:11→18:45)
[2019-06-04 06:23] LABS: HEMATOCRIT 24.2 % (36.0-47.0); MEAN CORPUSCULAR HEMOGLOBIN 29.9 pg (27.0-33.4); MEAN CORPUSCULAR HGB CONC 31.7 g/dL (32.0-36.0); MEAN CORPUSCULAR VOLUME 94 fl (80-97); RED BLOOD COUNT 2.57 10^6/uL (3.72-5.28); RED CELL DISTRIBUTION WIDTH 15.6 % (11.5-14.0); WHITE BLOOD COUNT 13.5 10^3/uL (4.0-10.5)
[2019-06-04 06:34] LABS: ALBUMIN 2.5 g/dL (3.5-5.0); ALKALINE PHOSPHATASE 156 U/L (38-126); ANION GAP 10 (5-19); ASPARTATE AMINO TRANSFERASE 57 U/L (14-36); BILIRUBIN,DIRECT 0.3 mg/dL (0.0-0.4); BILIRUBIN,TOTAL 0.6 mg/dL (0.2-1.3); BLOOD UREA NITROGEN 31 mg/dL (7-20); CALCIUM 9.2 mg/dL (8.4-10.2); CARBON DIOXIDE 18 mmol/L (22-30); CHLORIDE 113 mmol/L (98-107); GLUCOSE 179 mg/dL (75-110); HEMOGLOBIN 7.7 g/dL (12.0-15.5); POTASSIUM 4.1 mmol/L (3.6-5.0); TOTAL PROTEIN 5.3 g/dL (6.3-8.2)
[2019-06-04 06:35] LABS: PLATELET COUNT 77 10^3/uL (150-450)
[2019-06-04 07:25] LABS: ABSOLUTE LYMPHOCYTES# (MANUAL) 1.5 10^3/uL (0.5-4.7); ABSOLUTE MONOCYTES # (MANUAL) 1.2 10^3/uL (0.1-1.4); ANISOCYTOSIS SLIGHT; BAND NEUTROPHILS % (MANUAL) 4 % (3-5); BASOPHILS % (MANUAL) 0 % (0-2); EOSINOPHILS % (MANUAL) 0 % (0-6); LYMPHOCYTES % (MANUAL) 11 % (13-45); MONOCYTES % (MANUAL) 9 % (3-13); SEGMENTED NEUTROPHILS % (MAN) 76 % (42-78); TOTAL CELLS COUNTED 100
[2019-06-04 07:26] LABS: PLATELET COMMENT DECREASED
[2019-06-04] MEDS: NORMAL SALINE 1000 ML 1,000 ML IV PRN ×2 (08:00→17:09)
[2019-06-04] MEDS: LISINOPRIL 5 MG TABLET PO SCH (09:16)
[2019-06-04] MEDS: DIGOXIN 0.25 MG TABLET PO SCH (09:16)
[2019-06-04] MEDS: LIDOCAINE 5% (700 MG) TRANSDERMAL ADH..PATCH TP SCH (09:16)
[2019-06-04] MEDS: METOPROLOL SUCCINATE 25 MG TAB.SR.24H PO SCH ×2 (09:16→21:05)
[2019-06-04] MEDS: FAMOTIDINE 20 MG TABLET PO SCH ×2 (09:22→21:05)
--- NOTE | 2019-06-04 11:29 | PDOC PROGRESS REPORT ---
Subjective Progress Note for:: 06/04/19 Reason For Visit: RIGHT KNEE PAIN 06/04/2019 Malignant pleural effusion, lung cancer, altered mental status,, chest tube Physical Exam Vital Signs: Temp Pulse Resp BP Pulse Ox 97.8 F 106 H 32 H 118/86 H 95 06/04/19 08:12 06/04/19 08:12 06/04/19 08:55 06/04/19 08:12 06/04/19 08:55 Pulse Oximeter Nocturnal Start: 05/14/19 13:35 Freq: RTQ4 Status: Complete Protocol: Document 05/15/19 07:26 CMI (Rec: 05/15/19 07:27 CMI [email or web address]) Nocturnal Pulse Oximetry Equipment Usage Equipment Discontinued Continuous SpO2 Machine # 5 Intake & Output 06/03/19 06/04/19 06/05/19 06:59 06:59 06:59 Intake Total 1717 620 Output Total 1300 1175 Balance 417 -555 Weight 108.6 kg General appearance: PRESENT: mild distress, other - Patient still appears to be struggling with her respirations, BiPAP helps some Respiratory exam: PRESENT: accessory muscle use, tachypnea, other - Patient has significant respiratory difficulty even with BiPAP, working hard, though she does maintain her sats Cardiovascular exam: PRESENT: RRR. ABSENT: diastolic murmur, rubs, systolic murmur Neurological exam: PRESENT: altered, other - Patient seems to respond sometimes appropriately, sometimes she seems to understand conversations and questions. Ever patient still is altered with her mental status and psych eval Psychiatric exam: PRESENT: unusual affect Results Laboratory Results: 06/04/19 05:01 06/04/19 05:01 06/03/19 06/04/19 06/04/19 06:14 05:01 05:01 WBC 13.5 H RBC 2.57 L Hgb 7.7 L Hct 24.2 L MCV 94 MCH 29.9 MCHC 31.7 L RDW 15.6 H Plt Count 77 L Seg Neutrophils % Not Reportable Sodium 141.9 141.0 Potassium 4.0 4.1 Chloride 113 H 113 H Carbon Dioxide 20 L 18 L Anion Gap 9 10 BUN 35 H 31 H Creatinine 0.78 0.77 Est GFR ( Amer) > 60 > 60 Glucose 196 H 179 H Calcium 9.6 9.2 Total Bilirubin 0.6 0.6 AST 48 H 57 H Alkaline Phosphatase 137 H 156 H Total Protein 5.4 L 5.3 L Albumin 2.5 L 2.5 L 05/08/19 05/15/19 05/29/19 12:26 17:15 23:24 Creatine Kinase 70 CK-MB (CK-2) 3.60 Troponin I 0.084 NT-Pro-B Natriuret Pep 594 H 05/30/19 05/30/19 08:15 08:15 Creatine Kinase 22 L CK-MB (CK-2) 3.64 Troponin I 0.092 NT-Pro-B Natriuret Pep Impressions: Thyroid Ultrasound 05/16/19 08:00 IMPRESSION: Multinodular goiter as detailed above. Within the left lobe of thyroid gland there is a TR 3 nodule that measures approximately 1.5 cm. Thoracentesis Ultrasound 05/17/19 08:00 IMPRESSION: Successful ultrasound-guided placement of a 10 [place] all-purpose drainage catheter into the fluid-filled right pleural space. Thoracentesis 05/20/19 00:00 IMPRESSION: SUCCESSFUL PLACEMENT OF A RIGHT SIDED CHEST TUBE USING CT GUIDANCE. Chest CT 05/28/19 00:00 IMPRESSION: 1. Persistent right pleural effusion status post right chest tube placement. Persistent collapse of right lower lobe and middle lobe. No pneumothorax. 2. Developing airspace disease the left lower lobe may represent concurrent infection or aspiration. 3. Bone metastasis. Head CT 05/31/19 00:00 IMPRESSION: No acute intracranial abnormality. EVIDENCE OF ACUTE STROKE: NO. Chest X-Ray 06/02/19 00:00 IMPRESSION: STABLE APPEARANCE OF THE CHEST. Assessment and Plan - Diagnosis (1) SOLEDAD (acute kidney injury) Is this a current diagnosis for this admission?: Yes (2) Acute encephalopathy Is this a current diagnosis for this admission?: Yes (3) Acute respiratory failure Qualifiers: Respiratory failure complication: hypoxia and hypercapnia Qualified Code(s): J96.01 - Acute respiratory failure with hypoxia; J96.02 - Acute respiratory failure with hypercapnia Is this a current diagnosis for this admission?: Yes (4) Bone metastasis Is this a current diagnosis for this admission?: Yes (5) Effusion, right knee Is this a current diagnosis for this admission?: Yes (6) Hemarthrosis following procedure Qualifiers: Encounter type: initial encounter Qualified Code(s): T88.8XXA - Other specified complications of surgical and medical care, not elsewhere classified, initial encounter; M25.00 - Hemarthrosis, unspecified joint Is this a current diagnosis for this admission?: Yes (7) Lung cancer Qualifiers: Laterality: right Lung location: lower lobe of lung Qualified Code(s): C34.31 - Malignant neoplasm of lower lobe, right bronchus or lung Is this a current diagnosis for this admission?: Yes - Plan Summary Summary: 06/01/2019 Had a long discussion this morning with Dr. Nye hematology oncology concerning this patient. Have gone over her entire hospitalization and admission Been is in the room this morning on rounds. He got 1 of his daughters on the phone while we discussed her care He is concerned about her agitation and confusion what seems to be worsening over the last week according to the patient. Patient could be suffering from ICU psychosis, or possibly even having problems secondary to the Ativan that we are given her Temperature 98.7 pulse is normally fast around 115, blood pressure 150/67, O2 sat between 96 and 100% on 2 to 3 L either BiPAP or nasal cannula Count today is 9.7 hemoglobin 7.7 BUN is gone from 49 down to 27 creatinine is gone from 1.13 down to 0.87 Is around 200 All cultures are negative Patient is receiving daily chest tube aspirations by general surgery Patient has stage IV lung cancer with malignant pleural effusion Per family patient is a full code 06/02/2019 Consult to psychiatry today for her confusion ,agitation, and delirium Patient's white count is back up to about 18,000 it had gotten down to 9700 Sugars are running in the low 200s, magnesium levels 1.9 ammonia levels 13 Patient may need long-term hospital care, discharge planning is approaching the family concerning this Blood cultures and urine cultures are still negative 06/03/2019 Several family members in the room including her today Temperature is 98.9, she has not had a fever in over 96 hours Blood pressure stable ,pulse is running her usual around 120 She has maintained her oxygen saturation in the upper 90s on either nasal cannula or BiPAP He reports that patient had a much better night last night was less confused him to rest more comfortably. Ativan NOT given last night Started Depakene yesterday at the suggestion of psychiatry Continue daily consultations by general surgery. Discharge planning has started paperwork for long-term admission Count today is come down to 15,800, HEMOglobin is stable at 7.7, coags stable 06/04/2019 He continues to state that the patient is improving neurologically as well as cognitively. Family states that she is sleeping better at night. They also states she is less confused. Family refused the Depakene denisinkles, stated they did not want her to have the medication. I have DC'd this medicine. Continues to run higher than normal respiration rate anywhere from 24-32 as her baseline Patient also continues to run a higher than normal heart rate though it is coming down's slightly in the 120s now down to the low 100s White count is down to 13,500, renal function appears normal It has been 48 hours since we have had a chest x-ray - Time Time Spent with patient: 25-34 minutes
--- NOTE | 2019-06-04 13:14 | PDOC PROGRESS REPORT ---
Subjective Progress Note for:: 06/04/19 Subjective:: 64-year-old female with stage IV lung cancer, malignant pleural effusion, and now a pleurocutaneous fistula. The patient denies fevers, chills, abdominal pain. She is short of breath, and on BiPAP. She is still confused. Reason For Visit: RIGHT KNEE PAIN Physical Exam Vital Signs: Temp Pulse Resp BP Pulse Ox 97.8 F 106 H 31 H 118/86 H 98 06/04/19 08:12 06/04/19 08:12 06/04/19 12:25 06/04/19 08:12 06/04/19 12:25 Pulse Oximeter Nocturnal Start: 05/14/19 13:35 Freq: RTQ4 Status: Complete Protocol: Document 05/15/19 07:26 CMI (Rec: 05/15/19 07:27 CMI [email or web address]) Nocturnal Pulse Oximetry Equipment Usage Equipment Discontinued Continuous SpO2 Machine # 5 Intake & Output 06/03/19 06/04/19 06/05/19 06:59 06:59 06:59 Intake Total 2717 620 Output Total 1300 1175 Balance 1417 -555 Weight 108.6 kg Exam: General appearance: PRESENT: obese Head exam: PRESENT: atraumatic, normocephalic Eye exam: PRESENT: EOMI, PERRLA. ABSENT: scleral icterus Mouth exam: PRESENT: moist, neck supple Neck exam: ABSENT: tenderness, thyromegaly, tracheal deviation Respiratory exam: PRESENT: tachypnea, other - decreased BS on right, coarse BS on left. Small caliber posterior chest tube in place. No air leak, fluid appea rs serous. Cardiovascular exam: PRESENT: tachycardia GI/Abdominal exam: PRESENT: soft. ABSENT: distended, guarding, tenderness Extremities exam: ABSENT: clubbing Musculoskeletal exam: ABSENT: deformity Neurological exam: PRESENT: awake, oriented to person, CN II-XII grossly intact. ABSENT: oriented to place, oriented to time, oriented to situation Psychiatric exam: PRESENT: agitated, anxious Focused psych exam: PRESENT: delusional, restlessness Skin exam: ABSENT: erythema, jaundice Results Laboratory Results: 06/04/19 05:01 06/04/19 05:01 06/03/19 06/04/19 06/04/19 06:14 05:01 05:01 WBC 13.5 H RBC 2.57 L Hgb 7.7 L Hct 24.2 L MCV 94 MCH 29.9 MCHC 31.7 L RDW 15.6 H Plt Count 77 L Seg Neutrophils % Not Reportable Sodium 141.9 141.0 Potassium 4.0 4.1 Chloride 113 H 113 H Carbon Dioxide 20 L 18 L Anion Gap 9 10 BUN 35 H 31 H Creatinine 0.78 0.77 Est GFR ( Amer) > 60 > 60 Glucose 196 H 179 H Calcium 9.6 9.2 Total Bilirubin 0.6 0.6 AST 48 H 57 H Alkaline Phosphatase 137 H 156 H Total Protein 5.4 L 5.3 L Albumin 2.5 L 2.5 L 05/08/19 05/15/19 05/29/19 12:26 17:15 23:24 Creatine Kinase 70 CK-MB (CK-2) 3.60 Troponin I 0.084 NT-Pro-B Natriuret Pep 594 H 05/30/19 05/30/19 08:15 08:15 Creatine Kinase 22 L CK-MB (CK-2) 3.64 Troponin I 0.092 NT-Pro-B Natriuret Pep Impressions: Thyroid Ultrasound 05/16/19 08:00 IMPRESSION: Multinodular goiter as detailed above. Within the left lobe of thyroid gland there is a TR 3 nodule that measures approximately 1.5 cm. Thoracentesis Ultrasound 05/17/19 08:00 IMPRESSION: Successful ultrasound-guided placement of a 10 [place]ili all-purpose drainage catheter into the fluid-filled right pleural space. Thoracentesis 05/20/19 00:00 IMPRESSION: SUCCESSFUL PLACEMENT OF A RIGHT SIDED CHEST TUBE USING CT GUIDANCE. Chest CT 05/28/19 00:00 IMPRESSION: 1. Persistent right pleural effusion status post right chest tube placement. Persistent collapse of right lower lobe and middle lobe. No pneumothorax. 2. Developing airspace disease the left lower lobe may represent concurrent infection or aspiration. 3. Bone metastasis. Head CT 05/31/19 00:00 IMPRESSION: No acute intracranial abnormality. EVIDENCE OF ACUTE STROKE: NO. Chest X-Ray 06/02/19 00:00 IMPRESSION: STABLE APPEARANCE OF THE CHEST. Assessment & Plan - Diagnosis (1) Malignant pleural effusion Is this a current diagnosis for this admission?: Yes - Time Time Spent with patient: Less than 15 minutes - Plan Summary Plan Summary: This is a 64-year-old female with a malignant pleural effusion and pleuro- cutaneous fistula. She is status post chemical pleurodesis. Today, her chest tube output appears serous. Her last chest x-ray is improved from previous. She has had approximately 100 cc of serous fluid out over 24 hours. The catheter appears to be draining much more effectively, now that the fluid has thinned. Continue the chest tube suction at 25 cm of water. Continue suppo rtive care.
[2019-06-04] MEDS: POLYETHYLENE GLYCOL 3350 POWDER 17 GM/1 PACKET PO PRN (17:09)
[2019-06-05] MEDS: NORMAL SALINE 1000 ML 1,000 ML IV PRN ×2 (03:27→12:33)
[2019-06-05 05:42] LABS: HEMATOCRIT 24.3 % (36.0-47.0); MEAN CORPUSCULAR HEMOGLOBIN 30.2 pg (27.0-33.4); MEAN CORPUSCULAR HGB CONC 32.4 g/dL (32.0-36.0); RED BLOOD COUNT 2.61 10^6/uL (3.72-5.28); RED CELL DISTRIBUTION WIDTH 15.4 % (11.5-14.0); WHITE BLOOD COUNT 16.3 10^3/uL (4.0-10.5)
[2019-06-05 05:46] LABS: HEMOGLOBIN 7.9 g/dL (12.0-15.5); MEAN CORPUSCULAR VOLUME 93 fl (80-97)
[2019-06-05 06:00] LABS: ALBUMIN 2.4 g/dL (3.5-5.0); ALKALINE PHOSPHATASE 157 U/L (38-126); ANION GAP 8 (5-19); ASPARTATE AMINO TRANSFERASE 49 U/L (14-36); BILIRUBIN,DIRECT 0.3 mg/dL (0.0-0.4); BILIRUBIN,TOTAL 0.6 mg/dL (0.2-1.3); BLOOD UREA NITROGEN 26 mg/dL (7-20); CALCIUM 9.1 mg/dL (8.4-10.2); CARBON DIOXIDE 20 mmol/L (22-30); CHLORIDE 113 mmol/L (98-107); GLUCOSE 164 mg/dL (75-110); POTASSIUM 4.1 mmol/L (3.6-5.0); TOTAL PROTEIN 5.4 g/dL (6.3-8.2)
[2019-06-05 06:11] LABS: ABSOLUTE LYMPHOCYTES# (MANUAL) 2.1 10^3/uL (0.5-4.7); ABSOLUTE MONOCYTES # (MANUAL) 1.3 10^3/uL (0.1-1.4); ANISOCYTOSIS SLIGHT; BASOPHILS % (MANUAL) 0 % (0-2); EOSINOPHILS % (MANUAL) 0 % (0-6); LYMPHOCYTES % (MANUAL) 13 % (13-45); MONOCYTES % (MANUAL) 8 % (3-13); SEGMENTED NEUTROPHILS % (MAN) 79 % (42-78); TOTAL CELLS COUNTED 100
[2019-06-05 06:13] LABS: PLATELET COMMENT DECREASED
[2019-06-05 06:26] LABS: PLATELET COUNT 93 10^3/uL (150-450)
[2019-06-05] MEDS: INSULIN LISPRO 100 UNIT/ML 3 ML VIAL SUBCUT SCH ×4 (06:35→18:35)
--- NOTE | 2019-06-05 08:25 | PDOC PROGRESS REPORT ---
Subjective Progress Note for:: 06/05/19 Subjective:: Patient doing much better over the last 24 hours, mental status is improved. She knows where she is, knows what year it is, remembered some things that happened before she was intubated originally. She seems motivated to get stronger. Over the last 12 hours there was no output from the chest tube. Surgery felt like she may be able to have the tube removed soon. Reason For Visit: RIGHT KNEE PAIN Physical Exam Vital Signs: Temp Pulse Resp BP Pulse Ox 97.9 F 102 H 27 H 145/59 H 96 06/04/19 23:50 06/04/19 23:50 06/05/19 05:18 06/04/19 23:50 06/05/19 06:30 Pulse Oximeter Nocturnal Start: 05/14/19 13:35 Freq: RTQ4 Status: Complete Protocol: Document 05/15/19 07:26 CMI (Rec: 05/15/19 07:27 CMI [email or web address]) Nocturnal Pulse Oximetry Equipment Usage Equipment Discontinued Continuous SpO2 Machine # 5 Intake & Output 06/04/19 06/05/19 06/06/19 06:59 06:59 06:59 Intake Total 620 2205 Output Total 1175 1625 Balance -555 580 Weight 108.6 kg 111.1 kg General appearance: PRESENT: no acute distress, well-developed, well-nourished Head exam: PRESENT: atraumatic, normocephalic Eye exam: PRESENT: conjunctiva pink, EOMI, PERRLA. ABSENT: scleral icterus Ear exam: PRESENT: normal external ear exam Mouth exam: PRESENT: moist, tongue midline Neck exam: ABSENT: carotid bruit, JVD, lymphadenopathy, thyromegaly Respiratory exam: PRESENT: clear to auscultation shivam. ABSENT: rales, rhonchi, wheezes Cardiovascular exam: PRESENT: RRR. ABSENT: diastolic murmur, rubs, systolic murmur Pulses: PRESENT: normal dorsalis pedis pul Vascular exam: PRESENT: normal capillary refill GI/Abdominal exam: PRESENT: normal bowel sounds, soft. ABSENT: distended, guarding, mass, organolmegaly, rebound, tenderness Rectal exam: PRESENT: deferred Extremities exam: PRESENT: full ROM. ABSENT: calf tenderness, clubbing, pedal edema Neurological exam: PRESENT: alert, awake, oriented to person, oriented to place, oriented to time, oriented to situation, CN II-XII grossly intact. ABSENT: motor sensory deficit Psychiatric exam: PRESENT: appropriate affect, normal mood. ABSENT: homicidal ideation, suicidal ideation Skin exam: PRESENT: dry, intact, warm. ABSENT: cyanosis, rash Results Laboratory Results: 06/05/19 05:15 06/05/19 05:15 06/05/19 06/05/19 05:15 05:15 WBC 16.3 H RBC 2.61 L Hgb 7.9 L Hct 24.3 L MCV 93 MCH 30.2 MCHC 32.4 RDW 15.4 H Plt Count 93 L Seg Neutrophils % Not Reportable Sodium 141.2 Potassium 4.1 Chloride 113 H Carbon Dioxide 20 L Anion Gap 8 BUN 26 H Creatinine 0.66 Est GFR ( Amer) > 60 Glucose 164 H Calcium 9.1 Total Bilirubin 0.6 AST 49 H Alkaline Phosphatase 157 H Total Protein 5.4 L Albumin 2.4 L 05/08/19 05/15/19 05/29/19 12:26 17:15 23:24 Creatine Kinase 70 CK-MB (CK-2) 3.60 Troponin I 0.084 NT-Pro-B Natriuret Pep 594 H 05/30/19 05/30/19 08:15 08:15 Creatine Kinase 22 L CK-MB (CK-2) 3.64 Troponin I 0.092 NT-Pro-B Natriuret Pep Impressions: Thyroid Ultrasound 05/16/19 08:00 IMPRESSION: Multinodular goiter as detailed above. Within the left lobe of thyroid gland there is a TR 3 nodule that measures approximately 1.5 cm. Thoracentesis Ultrasound 05/17/19 08:00 IMPRESSION: Successful ultrasound-guided placement of a 10 [place] all-purpose drainage catheter into the fluid-filled right pleural space. Thoracentesis 05/20/19 00:00 IMPRESSION: SUCCESSFUL PLACEMENT OF A RIGHT SIDED CHEST TUBE USING CT GUIDANCE. Chest CT 05/28/19 00:00 IMPRESSION: 1. Persistent right pleural effusion status post right chest tube placement. Persistent collapse of right lower lobe and middle lobe. No pneumothorax. 2. Developing airspace disease the left lower lobe may represent concurrent infection or aspiration. 3. Bone metastasis. Head CT 05/31/19 00:00 IMPRESSION: No acute intracranial abnormality. EVIDENCE OF ACUTE STROKE: NO. Assessment & Plan - Diagnosis (1) Malignant pleural effusion Is this a current diagnosis for this admission?: Yes Plan: Improving post pleurodesis, continue with monitoring per surgery team. (2) Lung cancer Qualifiers: Laterality: right Lung location: lower lobe of lung Qualified Code(s): C34.31 - Malignant neoplasm of lower lobe, right bronchus or lung Is this a current diagnosis for this admission?: Yes Plan: Oral therapy ordered, hopefully should be delivered soon. (3) Effusion, right knee Is this a current diagnosis for this admission?: Yes Plan: Improved overall but getting physical therapy involved now - Time Time Spent with patient: 35 or more minutes - Inpatient Certification Based on my medical assessment, after consideration of the patient's comorbidities, presenting symptoms, or acuity I expect that the services needed warrant INPATIENT care.: Yes I certify that my determination is in accordance with my understanding of Medicare's requirements for reasonable and necessary INPATIENT services [42 CFR 412.3e].: Yes Medical Necessity: Risk of Complication if Not Cared For in Hospital
--- NOTE | 2019-06-05 08:55 | RADIOLOGY REPORT (SQ) ---
EXAM DESCRIPTION: CHEST SINGLE VIEW COMPLETED DATE/TIME: 06/05/2019 7:56 am REASON FOR STUDY: pleural effusion COMPARISON: 06/02/2019. EXAM PARAMETERS: NUMBER OF VIEWS: One view. TECHNIQUE: Single frontal radiographic view of the chest acquired. RADIATION DOSE: NA LIMITATIONS: None. FINDINGS: LUNGS AND PLEURA: Large right pleural effusion which has increased. Left lung relatively clear. MEDIASTINUM AND HILAR STRUCTURES: No masses. Contour normal. HEART AND VASCULAR STRUCTURES: Heart normal in size. Normal vasculature. BONES: No acute findings. HARDWARE: Right-sided pigtail catheter. Central line. Clips in the upper abdomen. OTHER: No other significant finding. IMPRESSION: INCREASE IN THE LARGE RIGHT PLEURAL EFFUSION. TECHNICAL DOCUMENTATION: JOB ID: [id number] [employer]- All Rights Reserved Reading location - IP/workstation name: [email or web address]
[2019-06-05] MEDS: LIDOCAINE 5% (700 MG) TRANSDERMAL ADH..PATCH TP SCH (08:59)
[2019-06-05] MEDS: LISINOPRIL 5 MG TABLET PO SCH (09:00)
[2019-06-05] MEDS: METOPROLOL SUCCINATE 25 MG TAB.SR.24H PO SCH ×2 (09:05→21:44)
[2019-06-05] MEDS: FAMOTIDINE 20 MG TABLET PO SCH ×2 (09:05→21:44)
[2019-06-05] MEDS: DIGOXIN 0.25 MG TABLET PO SCH (09:06)
--- NOTE | 2019-06-05 10:16 | PDOC CONSULTATION ---
Consultation Consult Date: 06/05/19 Attending physician:: CLAY GARVIN Provider Consulted: FELICITY RIOS Consult reason:: metastatic adeno carcinoma resp failure History of Present Illness Admission Date/PCP: 05/12/19 14:45 МАРИНА SPANGLER MD History of Present Illness: VLADIMIR LUCERO is a 64 year old female well-known to [facility] associates carrying a diagnosis of metastatic adenocarcinoma of the lung. She presented with increasing shortness of breath has effusion in the right hemithorax. He currently has a chest tube is draining intermittently. She is on BiPAP with relatively low settings. Suspect that she will need noninvasive positive pressure ventilation indefinitely. Past Medical History Cardiac Medical History: Reports: DVT, Hypertension EENT Medical History: Reports: Other - Right lower extremity deep venous thrombosis Endocrine Medical History: Reports: Diabetes Mellitus Type 2, Obesity Renal/ Medical History: Reports: None Malignancy Medical History: Reports: Lung Cancer GI Medical History: Reports: None Musculoskeltal Medical History: Reports: Arthritis Psychiatric Medical History: Denies: Depression Traumatic Medical History: Denies: Traumatic Brain Injury Hematology: Reports: Other - Right lower extremity deep venous thrombosis Denies: Sickle Cell Disease Infectious Medical History: Denies: Hepatitis B, Hepatitis C, HIV - [id number] Past Surgical History Past Surgical History: Reports: Cholecystectomy, Hysterectomy, Orthopedic Surgery - Right knee arthroscopic Social History Information Source: [facility] Records Lives with: Family Smoking Status: Former Smoker Passive smoke exposure as: Both Frequency of Alcohol Use: None Hx Recreational Drug Use: No Drugs: None Hx Prescription Drug Abuse: No Do you have pets?: No Have you had any respiratory illnesses as a child?: No Have you been exposed to any sick contacts recently?: No Have you had any recent respiratory illnesses?: Yes Have you travelled outside of [place] in the past 12 months?: No - Advance Directive Resuscitation Status: Full Code Family History Family History: Arthritis, DM, Hypertension, Malignancy Parental Family History Reviewed: Yes Children Family History Reviewed: Yes Sibling(s) Family History Reviewed.: Yes Medication/Allergy Home Medications: Celecoxib [Celebrex 200 mg Capsule] 200 mg PO Q12 05/08/19 Furosemide [Lasix 40 mg Tablet] 40 mg PO DAILY 05/08/19 Gabapentin [Neurontin] 600 mg PO Q8 05/08/19 Glimepiride [Amaryl 4 mg Tablet] 4 mg PO BID 05/08/19 Linaclotide [Linzess 145 Mcg Capsule] 145 mcg PO DAILY 05/08/19 Metformin HCl [Metformin HCl ER] 1,000 mg PO BIDBS 05/08/19 Oxycodone HCl [Oxy-Ir 5 mg Tablet] 10 mg PO Q8HP PRN 05/08/19 Oxycodone HCl/Acetaminophen [Oxycodone-Acetaminophen 10-325] 1 tab PO Q8HP PRN 05/08/19 Ranitidine HCl [Zantac] 150 mg PO BID 05/08/19 Rivaroxaban [Xarelto] 20 mg PO BID 05/08/19 Valsartan/Hydrochlorothiazide [Valsartan-Hctz 160-12.5 mg Tab] 1 tab PO DAILY 05/08/19 Acetaminophen [Tylenol 325 mg Tablet] 650 mg PO Q6HP PRN tablet 05/15/19 Metoprolol Tartrate [Lopressor 25 mg Tablet] 25 mg PO Q12 #60 tablet 05/15/19 Polyethylene Glycol 3350 [Miralax Powder 17 gm/Packet] 17 gm PO DAILY powd.pack 05/15/19 Allergies/Adverse Reactions: iodine Allergy (Verified 03/25/19 15:37) Review of Systems All systems: reviewed and no additional remarkable complaints except as stated Physical Exam Vital Signs: Temp Pulse Resp BP Pulse Ox 97.8 F 111 H 32 H 164/74 H 97 06/05/19 08:04 06/05/19 08:04 06/05/19 08:04 06/05/19 08:04 06/05/19 08:04 Pulse Oximeter Nocturnal Start: 05/14/19 13:35 Freq: RTQ4 Status: Complete Protocol: Document 05/15/19 07:26 CMI (Rec: 05/15/19 07:27 CMI [email or web address]) Nocturnal Pulse Oximetry Equipment Usage Equipment Discontinued Continuous SpO2 Machine # 5 Intake & Output 06/04/19 06/05/19 06/06/19 06:59 06:59 06:59 Intake Total 620 2205 Output Total 1175 1625 Balance -555 580 Weight 108.6 kg 111.1 kg General appearance: PRESENT: disheveled, mild distress, obese Head exam: PRESENT: atraumatic, normocephalic Eye exam: PRESENT: conjunctiva pale, EOMI. ABSENT: nystagmus, periorbital swelling, scleral icterus Mouth exam: PRESENT: dry mucosa, neck supple, tongue midline Neck exam: ABSENT: carotid bruit, JVD, lymphadenopathy, thyromegaly Respiratory exam: PRESENT: decreased breath sounds, prolonged expiratory phas, rales, rhonchi, tachypnea, wheezes. ABSENT: retraction, stridor Cardiovascular exam: PRESENT: RRR, +S1, +S2, tachycardia GI/Abdominal exam: PRESENT: soft. ABSENT: guarding, mass, rebound, tenderness Extremities exam: PRESENT: pedal edema. ABSENT: calf tenderness, joint swelling, tenderness Musculoskeletal exam: ABSENT: ambulatory, deformity, dislocation Neurological exam: PRESENT: altered, awake Psychiatric exam: PRESENT: flat affect Skin exam: PRESENT: dry, warm Results Laboratory Results: 06/05/19 05:15 06/05/19 05:15 06/05/19 06/05/19 05:15 05:15 WBC 16.3 H RBC 2.61 L Hgb 7.9 L Hct 24.3 L MCV 93 MCH 30.2 MCHC 32.4 RDW 15.4 H Plt Count 93 L Seg Neutrophils % Not Reportable Sodium 141.2 Potassium 4.1 Chloride 113 H Carbon Dioxide 20 L Anion Gap 8 BUN 26 H Creatinine 0.66 Est GFR ( Amer) > 60 Glucose 164 H Calcium 9.1 Total Bilirubin 0.6 AST 49 H Alkaline Phosphatase 157 H Total Protein 5.4 L Albumin 2.4 L 05/08/19 05/15/19 05/29/19 12:26 17:15 23:24 Creatine Kinase 70 CK-MB (CK-2) 3.60 Troponin I 0.084 NT-Pro-B Natriuret Pep 594 H 05/30/19 05/30/19 08:15 08:15 Creatine Kinase 22 L CK-MB (CK-2) 3.64 Troponin I 0.092 NT-Pro-B Natriuret Pep Impressions: Thyroid Ultrasound 05/16/19 08:00 IMPRESSION: Multinodular goiter as detailed above. Within the left lobe of thyroid gland there is a TR 3 nodule that measures approximately 1.5 cm. Thoracentesis Ultrasound 05/17/19 08:00 IMPRESSION: Successful ultrasound-guided placement of a 10 Peruvian all-purpose drainage catheter into the fluid-filled right pleural space. Thoracentesis 05/20/19 00:00 IMPRESSION: SUCCESSFUL PLACEMENT OF A RIGHT SIDED CHEST TUBE USING CT GUIDANCE. Chest CT 05/28/19 00:00 IMPRESSION: 1. Persistent right pleural effusion status post right chest tube placement. Persistent collapse of right lower lobe and middle lobe. No pneumothorax. 2. Developing airspace disease the left lower lobe may represent concurrent infection or aspiration. 3. Bone metastasis. Head CT 05/31/19 00:00 IMPRESSION: No acute intracranial abnormality. EVIDENCE OF ACUTE STROKE: NO. Chest X-Ray 06/05/19 06:00 IMPRESSION: INCREASE IN THE LARGE RIGHT PLEURAL EFFUSION. Assessment & Plan - Diagnosis (1) Acute respiratory failure Qualifiers: Respiratory failure complication: hypoxia and hypercapnia Qualified Code(s): J96.01 - Acute respiratory failure with hypoxia; J96.02 - Acute respiratory failure with hypercapnia Is this a current diagnosis for this admission?: Yes Plan: Patient will need noninvasive positive pressure ventilation indefinitely Continuous pulse oximetry ABG Trial of AVAPS see if this will decrease her respiratory rate and work of breathing (2) Malignant pleural effusion Is this a current diagnosis for this admission?: Yes Plan: Chest tube in place draining intermittently cytology positive for adenocarcinoma - Time Time Spent: 50 to 70 Minutes
--- NOTE | 2019-06-05 11:21 | PDOC PROGRESS REPORT ---
Subjective Progress Note for:: 06/05/19 Subjective:: 64-year-old female with stage IV lung cancer, malignant pleural effusion, and now a pleurocutaneous fistula. The patient denies fevers, chills, abdominal pain. She is short of breath, and on BiPAP. She is still confused. Reason For Visit: RIGHT KNEE PAIN Physical Exam Vital Signs: Temp Pulse Resp BP Pulse Ox 97.8 F 111 H 32 H 164/74 H 97 06/05/19 08:04 06/05/19 08:04 06/05/19 08:04 06/05/19 08:04 06/05/19 08:04 Pulse Oximeter Nocturnal Start: 05/14/19 13:35 Freq: RTQ4 Status: Complete Protocol: Document 05/15/19 07:26 CMI (Rec: 05/15/19 07:27 CMI [email or web address]) Nocturnal Pulse Oximetry Equipment Usage Equipment Discontinued Continuous SpO2 Machine # 5 Intake & Output 06/04/19 06/05/19 06/06/19 06:59 06:59 06:59 Intake Total 620 2205 Output Total 1175 1625 Balance -555 580 Weight 108.6 kg 111.1 kg Exam: General appearance: PRESENT: obese Head exam: PRESENT: atraumatic, normocephalic Eye exam: PRESENT: EOMI, PERRLA. ABSENT: scleral icterus Mouth exam: PRESENT: moist, neck supple Neck exam: ABSENT: tenderness, thyromegaly, tracheal deviation Respiratory exam: PRESENT: tachypnea, other - decreased BS on right, coarse BS on left. Small caliber posterior chest tube in place. No air leak, minimal output over last 24 hours. Cardiovascular exam: PRESENT: tachycardia GI/Abdominal exam: PRESENT: soft. ABSENT: distended, guarding, tenderness Extremities exam: ABSENT: clubbing Musculoskeletal exam: ABSENT: deformity Neurological exam: PRESENT: awake, oriented to person, CN II-XII grossly intact. ABSENT: oriented to place, oriented to time, oriented to situation Psychiatric exam: PRESENT: agitated, anxious Focused psych exam: PRESENT: delusional, restlessness Skin exam: ABSENT: erythema, jaundice Results Laboratory Results: 06/05/19 05:15 06/05/19 05:15 06/05/19 06/05/19 05:15 05:15 WBC 16.3 H RBC 2.61 L Hgb 7.9 L Hct 24.3 L MCV 93 MCH 30.2 MCHC 32.4 RDW 15.4 H Plt Count 93 L Seg Neutrophils % Not Reportable Sodium 141.2 Potassium 4.1 Chloride 113 H Carbon Dioxide 20 L Anion Gap 8 BUN 26 H Creatinine 0.66 Est GFR ( Amer) > 60 Glucose 164 H Calcium 9.1 Total Bilirubin 0.6 AST 49 H Alkaline Phosphatase 157 H Total Protein 5.4 L Albumin 2.4 L 05/08/19 05/15/19 05/29/19 12:26 17:15 23:24 Creatine Kinase 70 CK-MB (CK-2) 3.60 Troponin I 0.084 NT-Pro-B Natriuret Pep 594 H 05/30/19 05/30/19 08:15 08:15 Creatine Kinase 22 L CK-MB (CK-2) 3.64 Troponin I 0.092 NT-Pro-B Natriuret Pep Impressions: Thyroid Ultrasound 05/16/19 08:00 IMPRESSION: Multinodular goiter as detailed above. Within the left lobe of thyroid gland there is a TR 3 nodule that measures approximately 1.5 cm. Thoracentesis Ultrasound 05/17/19 08:00 IMPRESSION: Successful ultrasound-guided placement of a 10 Greek all-purpose drainage catheter into the fluid-filled right pleural space. Thoracentesis 05/20/19 00:00 IMPRESSION: SUCCESSFUL PLACEMENT OF A RIGHT SIDED CHEST TUBE USING CT GUIDANCE. Chest CT 05/28/19 00:00 IMPRESSION: 1. Persistent right pleural effusion status post right chest tube placement. Persistent collapse of right lower lobe and middle lobe. No pneumothorax. 2. Developing airspace disease the left lower lobe may represent concurrent infection or aspiration. 3. Bone metastasis. Head CT 05/31/19 00:00 IMPRESSION: No acute intracranial abnormality. EVIDENCE OF ACUTE STROKE: NO. Chest X-Ray 06/05/19 06:00 IMPRESSION: INCREASE IN THE LARGE RIGHT PLEURAL EFFUSION. Assessment & Plan - Diagnosis (1) Malignant pleural effusion Is this a current diagnosis for this admission?: Yes - Time Time Spent with patient: Less than 15 minutes - Plan Summary Plan Summary: This is a 64-year-old female with a malignant pleural effusion and pleuro- cutaneous fistula. She is status post chemical pleurodesis. The pleurodesis appears to have been ineffective. Today, her chest tube has not produced much, but her X-ray looks worse. I flushed the tube with 60cc of sterile, injectible saline and aspirated 360 cc of serosanguinous fluid. She appears to have persistence of her pleural effusion despite maximal therapy. At this time hospice would be the most appropriate course of action. The family is still resistant to this. Continue the chest tube suction at 25 cm of water. Continue supportive care.
[2019-06-05] MEDS ORDERED: FUROSEMIDE INJ/PF 40 MG/4 ML SDV IV ONE (11:29)
--- NOTE | 2019-06-05 13:17 | PDOC PROGRESS REPORT ---
Subjective Progress Note for:: 06/05/19 Reason For Visit: RIGHT KNEE PAIN 06/05/2019 Malignant pleural effusion, lung cancer, acute respiratory failure, altered mental status Physical Exam Vital Signs: Temp Pulse Resp BP Pulse Ox 98.4 F 101 H 28 H 133/78 H 100 06/05/19 11:55 06/05/19 11:55 06/05/19 11:55 06/05/19 11:55 06/05/19 11:55 Pulse Oximeter Continuous Start: 06/05/19 10:16 Freq: RTQ4 Status: Active Protocol: Document 06/05/19 11:33 DSH (Rec: 06/05/19 11:36 DSH [email or web address]) Pulse Oximetry Assessment Oxygen Saturation (92-100) 98 Oxygen Delivery Method AVAP Fraction of Inspired Oxygen (FIO2) 30 Equipment Usage Equipment Standby Continuous SpO2 Machine # - Pulse Oximeter Nocturnal Start: 05/14/19 13:35 Freq: RTQ4 Status: Complete Protocol: Document 05/15/19 07:26 CMI (Rec: 05/15/19 07:27 CMI [email or web address]) Nocturnal Pulse Oximetry Equipment Usage Equipment Discontinued Continuous SpO2 Machine # 5 Intake & Output 06/04/19 06/05/19 06/06/19 06:59 06:59 06:59 Intake Total 620 2205 884 Output Total 1175 1625 Balance -555 580 884 Weight 108.6 kg 111.1 kg General appearance: PRESENT: mild distress, other - Patient's respirations are about 30/min and appear labored even on BiPAP Respiratory exam: PRESENT: crackles - Left lung base Cardiovascular exam: PRESENT: tachycardia Neurological exam: PRESENT: altered, other - Patient seems to be making daily improvement with her mentation Psychiatric exam: PRESENT: anxious - Patient appears to be "oxygen hungry" Results Laboratory Results: 06/05/19 05:15 06/05/19 05:15 06/05/19 06/05/19 05:15 05:15 WBC 16.3 H RBC 2.61 L Hgb 7.9 L Hct 24.3 L MCV 93 MCH 30.2 MCHC 32.4 RDW 15.4 H Plt Count 93 L Seg Neutrophils % Not Reportable Sodium 141.2 Potassium 4.1 Chloride 113 H Carbon Dioxide 20 L Anion Gap 8 BUN 26 H Creatinine 0.66 Est GFR ( Amer) > 60 Glucose 164 H Calcium 9.1 Total Bilirubin 0.6 AST 49 H Alkaline Phosphatase 157 H Total Protein 5.4 L Albumin 2.4 L 05/08/19 05/15/19 05/29/19 12:26 17:15 23:24 Creatine Kinase 70 CK-MB (CK-2) 3.60 Troponin I 0.084 NT-Pro-B Natriuret Pep 594 H 05/30/19 05/30/19 06/05/19 08:15 08:15 05:15 Creatine Kinase 22 L CK-MB (CK-2) 3.64 Troponin I 0.092 NT-Pro-B Natriuret Pep 1400 H Impressions: Thyroid Ultrasound 05/16/19 08:00 IMPRESSION: Multinodular goiter as detailed above. Within the left lobe of thyroid gland there is a TR 3 nodule that measures approximately 1.5 cm. Thoracentesis Ultrasound 05/17/19 08:00 IMPRESSION: Successful ultrasound-guided placement of a 10 Ivorian all-purpose drainage catheter into the fluid-filled right pleural space. Thoracentesis 05/20/19 00:00 IMPRESSION: SUCCESSFUL PLACEMENT OF A RIGHT SIDED CHEST TUBE USING CT GUIDANCE. Chest CT 05/28/19 00:00 IMPRESSION: 1. Persistent right pleural effusion status post right chest tube placement. Persistent collapse of right lower lobe and middle lobe. No pneumothorax. 2. Developing airspace disease the left lower lobe may represent concurrent infection or aspiration. 3. Bone metastasis. Head CT 05/31/19 00:00 IMPRESSION: No acute intracranial abnormality. EVIDENCE OF ACUTE STROKE: NO. Chest X-Ray 06/05/19 06:00 IMPRESSION: INCREASE IN THE LARGE RIGHT PLEURAL EFFUSION. Assessment and Plan - Diagnosis (1) SOLEDAD (acute kidney injury) Is this a current diagnosis for this admission?: Yes (2) Acute encephalopathy Is this a current diagnosis for this admission?: Yes (3) Acute respiratory failure Qualifiers: Respiratory failure complication: hypoxia and hypercapnia Qualified Code(s): J96.01 - Acute respiratory failure with hypoxia; J96.02 - Acute respiratory failure with hypercapnia Is this a current diagnosis for this admission?: Yes (4) Bone metastasis Is this a current diagnosis for this admission?: Yes (5) Effusion, right knee Is this a current diagnosis for this admission?: Yes (6) Hemarthrosis following procedure Qualifiers: Encounter type: initial encounter Qualified Code(s): T88.8XXA - Other specified complications of surgical and medical care, not elsewhere classified, initial encounter; M25.00 - Hemarthrosis, unspecified joint Is this a current diagnosis for this admission?: Yes (7) Lung cancer Qualifiers: Laterality: right Lung location: lower lobe of lung Qualified Code(s): C34.31 - Malignant neoplasm of lower lobe, right bronchus or lung Is this a current diagnosis for this admission?: Yes - Plan Summary Summary: 06/01/2019 Had a long discussion this morning with Dr. Nye hematology oncology concerning this patient. Have gone over her entire hospitalization and admission Been is in the room this morning on rounds. He got 1 of his daughters on the phone while we discussed her care He is concerned about her agitation and confusion what seems to be worsening over the last week according to the patient. Patient could be suffering from ICU psychosis, or possibly even having problems secondary to the Ativan that we are given her Temperature 98.7 pulse is normally fast around 115, blood pressure 150/67, O2 sat between 96 and 100% on 2 to 3 L either BiPAP or nasal cannula Count today is 9.7 hemoglobin 7.7 BUN is gone from 49 down to 27 creatinine is gone from 1.13 down to 0.87 Is around 200 All cultures are negative Patient is receiving daily chest tube aspirations by general surgery Patient has stage IV lung cancer with malignant pleural effusion Per family patient is a full code 06/02/2019 Consult to psychiatry today for her confusion ,agitation, and delirium Patient's white count is back up to about 18,000 it had gotten down to 9700 Sugars are running in the low 200s, magnesium levels 1.9 ammonia levels 13 Patient may need long-term hospital care, discharge planning is approaching the family concerning this Blood cultures and urine cultures are still negative 06/03/2019 Several family members in the room including her today Temperature is 98.9, she has not had a fever in over 96 hours Blood pressure stable ,pulse is running her usual around 120 She has maintained her oxygen saturation in the upper 90s on either nasal cannula or BiPAP He reports that patient had a much better night last night was less confused him to rest more comfortably. Ativan NOT given last night Started Depakene yesterday at the suggestion of psychiatry Continue daily consultations by general surgery. Discharge planning has started paperwork for long-term admission Count today is come down to 15,800, HEMOglobin is stable at 7.7, coags stable 06/04/2019 He continues to state that the patient is improving neurologically as well as cognitively. Family states that she is sleeping better at night. They also states she is less confused. Family refused the Depakene sprinkles, stated they did not want her to have the medication. I have DC'd this medicine. Continues to run higher than normal respiration rate anywhere from 24-32 as her baseline Patient also continues to run a higher than normal heart rate though it is coming down's slightly in the 120s now down to the low 100s White count is down to 13,500, renal function appears normal It has been 48 hours since we have had a chest x-ray 06/05/2019 Patient's mentation appears to be improving, less confusion, is more oriented to person and place. Unfortunately however patient continues to appear to be struggling with her breathing due to a multitude of factors. It sounds as though patient's pleural effusion is not going to improve significa ntly even with aggressive treatment Agree based on patient's respiration pattern and observation over the last week, and will probably never be able to come off of supportive breathing treatments. Try to decrease patient's IV fluids and give her some Lasix to see if this offers her any benefit, as she does sound to be a little wet in the left lower lobe. Patient's family is to make a decision concerning long-term care. In light of patient's apparent poor prognosis - Time Time Spent with patient: 25-34 minutes
[2019-06-05] MEDS: PHARMACY COMMUNICATION ORDER MC SCH (21:44)
[2019-06-05] MEDS: FUROSEMIDE INJ/PF 20 MG/2 ML SDV IV SCH (21:44)
[2019-06-06] MEDS: INSULIN LISPRO 100 UNIT/ML 3 ML VIAL SUBCUT SCH ×4 (01:22→21:22)
[2019-06-06 06:24] LABS: MEAN CORPUSCULAR HEMOGLOBIN 29.8 pg (27.0-33.4); MEAN CORPUSCULAR HGB CONC 31.5 g/dL (32.0-36.0); MEAN CORPUSCULAR VOLUME 95 fl (80-97); PLATELET COUNT 102 10^3/uL (150-450); RED BLOOD COUNT 2.64 10^6/uL (3.72-5.28); RED CELL DISTRIBUTION WIDTH 15.6 % (11.5-14.0); WHITE BLOOD COUNT 20.5 10^3/uL (4.0-10.5)
[2019-06-06 07:15] LABS: HEMOGLOBIN 7.9 g/dL (12.0-15.5)
[2019-06-06 07:20] LABS: ABSOLUTE LYMPHOCYTES# (MANUAL) 0.8 10^3/uL (0.5-4.7); ABSOLUTE MONOCYTES # (MANUAL) 1.2 10^3/uL (0.1-1.4); BAND NEUTROPHILS % (MANUAL) 2 % (3-5); BASOPHILS % (MANUAL) 0 % (0-2); EOSINOPHILS % (MANUAL) 0 % (0-6); LYMPHOCYTES % (MANUAL) 4 % (13-45); MONOCYTES % (MANUAL) 6 % (3-13); SEGMENTED NEUTROPHILS % (MAN) 88 % (42-78); TOTAL CELLS COUNTED 100
[2019-06-06 07:21] LABS: ANISOCYTOSIS SLIGHT; PLATELET COMMENT DECREASED
--- NOTE | 2019-06-06 09:02 | RADIOLOGY REPORT (SQ) ---
EXAM DESCRIPTION: CHEST SINGLE VIEW COMPLETED DATE/TIME: 06/06/2019 8:40 am REASON FOR STUDY: pleural effusion COMPARISON: 06/05/2019 NUMBER OF VIEWS: One view. TECHNIQUE: Single frontal radiographic image of the chest acquired. LIMITATIONS: None. FINDINGS: LUNGS AND PLEURA: Stable appearance. Central line and right-sided pigtail catheter remain s in place. MEDIASTINUM AND HILAR STRUCTURES: Stable heart size and mediastinal structures. HEART AND VASCULAR STRUCTURES: Stable appearance. BONES: No acute findings. HARDWARE: None in the chest. OTHER: No other significant finding. IMPRESSION: STABLE APPEARANCE OF THE CHEST. TECHNICAL DOCUMENTATION: JOB ID: [id number] [employer]- All Rights Reserved Reading location - IP/workstation name: [email or web address]
[2019-06-06] MEDS: FUROSEMIDE INJ/PF 20 MG/2 ML SDV IV SCH ×2 (09:07→21:41)
[2019-06-06] MEDS: LISINOPRIL 5 MG TABLET PO SCH (09:08)
[2019-06-06] MEDS: FAMOTIDINE 20 MG TABLET PO SCH ×2 (09:08→21:42)
[2019-06-06] MEDS: METOPROLOL SUCCINATE 25 MG TAB.SR.24H PO SCH ×2 (09:08→21:42)
[2019-06-06] MEDS: DIGOXIN 0.25 MG TABLET PO SCH (09:09)
[2019-06-06] MEDS: LIDOCAINE 5% (700 MG) TRANSDERMAL ADH..PATCH TP SCH (09:09)
[2019-06-06 10:09] LABS: ARTERIAL BLOOD BASE EXCESS -8.1 mmol/L; ARTERIAL BLOOD FIO2 30%; ARTERIAL BLOOD H2CO3 0.91 mmol/L (1.05-1.35); ARTERIAL BLOOD HCO3 16.5 mmol/L (20-24); ARTERIAL BLOOD O2 SATURATION 97.2 % (94-98); ARTERIAL BLOOD PCO2 30.2 mmHg (35-45); ARTERIAL BLOOD PH 7.36 (7.35-7.45); ARTERIAL BLOOD PO2 96.5 mmHg (80-100); ARTERIAL BLOOD TOTAL CO2 17.5 mmol/L (21-25)
--- NOTE | 2019-06-06 11:12 | PDOC PROGRESS REPORT ---
Subjective Progress Note for:: 06/06/19 Subjective:: Patient has been off her BiPAP to eat, but did not eat very much. Family is at bedside and state that she has been doing better. She slept better last night. Nurses report that she is more confused today and plans are for her to go to LTAC in the near future. Reason For Visit: RIGHT KNEE PAIN Physical Exam Vital Signs: Temp Pulse Resp BP Pulse Ox 98.6 F 121 H 31 H 179/79 H 97 06/06/19 08:13 06/06/19 08:13 06/06/19 09:28 06/06/19 08:13 06/06/19 09:28 Pulse Oximeter Continuous Start: 06/05/19 10:16 Freq: RTQ4 Status: Active Protocol: Document 06/06/19 09:28 DS (Rec: 06/06/19 09:31 [facility] [email or web address]) Pulse Oximetry Assessment Oxygen Saturation (92-100) 97 Oxygen Delivery Method AVAP Fraction of Inspired Oxygen (FIO2) 25 Equipment Usage Equipment in Use Continuous SpO2 Machine # 4 Pulse Oximeter Nocturnal Start: 05/14/19 13: 35 Freq: RTQ4 Status: Complete Protocol: Document 05/15/19 07:26 CMI (Rec: 05/15/19 07:27 CMI [email or web address]) Nocturnal Pulse Oximetry Equipment Usage Equipment Discontinued Continuous SpO2 Machine # 5 Intake & Output 06/05/19 06/06/19 06/07/19 06:59 06:59 06:59 Intake Total 2205 1244 Output Total 1625 3085 75 Balance 580 -1841 -75 Weight 111.1 kg 111.2 kg General appearance: PRESENT: obese, severe distress Head exam: PRESENT: normocephalic Neck exam: ABSENT: tenderness Respiratory exam: PRESENT: tachypnea Extremities exam: PRESENT: +1 edema Neurological exam: PRESENT: alert, awake Psychiatric exam: PRESENT: appropriate affect Skin exam: PRESENT: normal color Results Laboratory Results: 06/06/19 05:47 06/05/19 05:15 06/05/19 06/05/19 06/06/19 11:41 11:41 05:47 WBC 20.5 H RBC 2.64 L Hgb 7.9 L Hct 25.0 L MCV 95 MCH 29.8 MCHC 31.5 L RDW 15.6 H Plt Count 102 L Seg Neutrophils % Not Reportable Carbonic Acid Cancelled 0.91 L HCO3/H2CO3 Ratio Cancelled 18:1 ABG pH Cancelled 7.36 ABG pCO2 Cancelled 30.2 L ABG pO2 Cancelled 96.5 ABG HCO3 Cancelled 16.5 L ABG O2 Saturation Cancelled 97.2 ABG Base Excess Cancelled -8.1 FiO2 Cancelled 30% 05/08/19 05/15/19 05/29/19 12:26 17:15 23:24 Creatine Kinase 70 CK-MB (CK-2) 3.60 Troponin I 0.084 NT-Pro-B Natriuret Pep 594 H 05/30/19 05/30/19 06/05/19 08:15 08:15 05:15 Creatine Kinase 22 L CK-MB (CK-2) 3.64 Troponin I 0.092 NT-Pro-B Natriuret Pep 1400 H Impressions: Thyroid Ultrasound 05/16/19 08:00 IMPRESSION: Multinodular goiter as detailed above. Within the left lobe of thyroid gland there is a TR 3 nodule that measures approximately 1.5 cm. Thoracentesis Ultrasound 05/17/19 08:00 IMPRESSION: Successful ultrasound-guided placement of a 10 [place] all-purpose drainage catheter into the fluid-filled right pleural space. Thoracentesis 05/20/19 00:00 IMPRESSION: SUCCESSFUL PLACEMENT OF A RIGHT SIDED CHEST TUBE USING CT GUIDANCE. Chest CT 05/28/19 00:00 IMPRESSION: 1. Persistent right pleural effusion status post right chest tube placement. Persistent collapse of right lower lobe and middle lobe. No pneumothorax. 2. Developing airspace disease the left lower lobe may represent concurrent infection or aspiration. 3. Bone metastasis. Head CT 05/31/19 00:00 IMPRESSION: No acute intracranial abnormality. EVIDENCE OF ACUTE STROKE: NO. Chest X-Ray 06/06/19 06:00 IMPRESSION: STABLE APPEARANCE OF THE CHEST. Assessment & Plan - Diagnosis (1) Lung cancer Qualifiers: Laterality: right Lung location: lower lobe of lung Qualified Code(s): C34.31 - Malignant neoplasm of lower lobe, right bronchus or lung Is this a current diagnosis for this admission?: Yes Plan: Still awaiting arrival of [facility]. I have asked again today about this. Our specialty pharmacy will arrange delivery JEAN. However, patient and family still understand that she may not respond to this treatment. (2) Acute respiratory failure Qualifiers: Respiratory failure complication: hypoxia and hypercapnia Qualified Code(s): J96.01 - Acute respiratory failure with hypoxia; J96.02 - Acute respiratory failure with hypercapnia Is this a current diagnosis for this admission?: Yes Plan: She remains BiPAP dependent. (3) DVT (deep venous thrombosis) Qualifiers: DVT location: lower extremity Affected thrombotic vein of extremity: femoral Chronicity: acute Laterality: right Qualified Code(s): I82.411 - Acute embolism and thrombosis of right femoral vein Is this a current diagnosis for this admission?: Yes Plan: All blood thinners have been on hold due to bleeding issues. (4) Morbid obesity Is this a current diagnosis for this admission?: Yes (5) SOLEDAD (acute kidney injury) Is this a current diagnosis for this admission?: Yes (6) Hypercalcemia Is this a current diagnosis for this admission?: Yes - Time Time Spent with patient: 15-24 minutes
[2019-06-06] MEDS ORDERED: MORPHINE SULFATE 10 MG/ML INJ IV PRN (12:48)
--- NOTE | 2019-06-06 16:34 | PDOC PROGRESS REPORT ---
Subjective Progress Note for:: 06/06/19 Subjective:: 64-year-old female with stage IV lung cancer, malignant pleural effusion, and now a pleurocutaneous fistula. The patient denies fevers, chills, abdominal pain. She is short of breath, and on BiPAP. She is still confused, however her level of alertness appears improved today. Reason For Visit: RIGHT KNEE PAIN Physical Exam Vital Signs: Temp Pulse Resp BP Pulse Ox 97.5 F 119 H 38 H 157/78 H 98 06/06/19 11:37 06/06/19 11:37 06/06/19 14:23 06/06/19 11:37 06/06/19 14:23 Pulse Oximeter Continuous Start: 06/05/19 10:16 Freq: RTQ4 Status: Active Protocol: Document 06/06/19 14:23 DSH (Rec: 06/06/19 14:24 [email or web address] Pulse Oximetry Assessment Oxygen Saturation (92-100) 98 Oxygen Delivery Method AVAP Fraction of Inspired Oxygen (FIO2) 25 Equipment Usage Equipment in Use Continuous SpO2 Machine # N2 Pulse Oximeter Nocturnal Start: 05/14/19 13:35 Freq: RTQ4 Status: Complete Protocol: Document 05/15/19 07:26 CMI (Rec: 05/15/19 07:27 CMI [email or web address]) Nocturnal Pulse Oximetry Equipment Usage Equipment Discontinued Continuous SpO2 Machine # 5 Intake & Output 06/05/19 06/06/19 06/07/19 06:59 06:59 06:59 Intake Total 2205 1244 Output Total 1625 3085 75 Balance 580 -1841 -75 Weight 111.1 kg 111.2 kg Exam: General appearance: PRESENT: obese Head exam: PRESENT: atraumatic, normocephalic Eye exam: PRESENT: EOMI, PERRLA. ABSENT: scleral icterus Mouth exam: PRESENT: moist, neck supple Neck exam: ABSENT: tenderness, thyromegaly, tracheal deviation Respiratory exam: PRESENT: tachypnea, other - decreased BS on right, coarse BS on left. Small caliber posterior chest tube in place. No air leak, Serous output present in Chest tube. Cardiovascular exam: PRESENT: tachycardia GI/Abdominal exam: PRESENT: soft. ABSENT: distended, guarding, tenderness Extremities exam: ABSENT: clubbing Musculoskeletal exam: ABSENT: deformity Neurological exam: PRESENT: awake, oriented to person, CN II-XII grossly intact. ABSENT: oriented to place, oriented to time, oriented to situation Psychiatric exam: PRESENT: agitated, anxious Focused psych exam: PRESENT: delusional, restlessness Skin exam: ABSENT: erythema, jaundice Results Laboratory Results: 06/06/19 05:47 06/05/19 05:15 06/05/19 06/05/19 06/06/19 11:41 11:41 05:47 WBC 20.5 H RBC 2.64 L Hgb 7.9 L Hct 25.0 L MCV 95 MCH 29.8 MCHC 31.5 L RDW 15.6 H Plt Count 102 L Seg Neutrophils % Not Reportable Carbonic Acid Cancelled 0.91 L HCO3/H2CO3 Ratio Cancelled 18:1 ABG pH Cancelled 7.36 ABG pCO2 Cancelled 30.2 L ABG pO2 Cancelled 96.5 ABG HCO3 Cancelled 16.5 L ABG O2 Saturation Cancelled 97.2 ABG Base Excess Cancelled -8.1 FiO2 Cancelled 30% 05/08/19 05/15/19 05/29/19 12:26 17:15 23:24 Creatine Kinase 70 CK-MB (CK-2) 3.60 Troponin I 0.084 NT-Pro-B Natriuret Pep 594 H 05/30/19 05/30/19 06/05/19 08:15 08:15 05:15 Creatine Kinase 22 L CK-MB (CK-2) 3.64 Troponin I 0.092 NT-Pro-B Natriuret Pep 1400 H Impressions: Thyroid Ultrasound 05/16/19 08:00 IMPRESSION: Multinodular goiter as detailed above. Within the left lobe of thyroid gland there is a TR 3 nodule that measures approximately 1.5 cm. Thoracentesis Ultrasound 05/17/19 08:00 IMPRESSION: Successful ultrasound-guided placement of a 10 [place] all-purpose drainage catheter into the fluid-filled right pleural space. Thoracentesis 05/20/19 00:00 IMPRESSION: SUCCESSFUL PLACEMENT OF A RIGHT SIDED CHEST TUBE USING CT GUIDANCE. Chest CT 05/28/19 00:00 IMPRESSION: 1. Persistent right pleural effusion status post right chest tube placement. Persistent collapse of right lower lobe and middle lobe. No pneumothorax. 2. Developing airspace disease the left lower lobe may represent concurrent infection or aspiration. 3. Bone metastasis. Head CT 05/31/19 00:00 IMPRESSION: No acute intracranial abnormality. EVIDENCE OF ACUTE STROKE: NO. Chest X-Ray 06/06/19 06:00 IMPRESSION: STABLE APPEARANCE OF THE CHEST. Assessment & Plan - Diagnosis (1) Malignant pleural effusion Is this a current diagnosis for this admission?: Yes - Time Time Spent with patient: Less than 15 minutes - Plan Summary Plan Summary: This is a 64-year-old female with a malignant pleural effusion and pleuro- cutaneous fistula. She is status post chemical pleurodesis. The pleurodesis appears to have been ineffective. Today, her chest tube is draining serous fluid , and her X-ray is stable. She had approximately 400cc of serousanguinous output from the chest tube yesterday. I aspirated the chest tube again today and it returned minimal serosanguinous fluid. She appears to have persistence of her pleural effusion despite maximal therapy. At this time hospice would be the most appropriate course of action. The family is still resistant to this. Continue the chest tube suction at 25 cm of water. Continue supportive care.
--- NOTE | 2019-06-06 17:01 | ADVANCED CARE ---
- Diagnosis (1) Acute respiratory failure Diagnosis Current: Yes (2) SOLEDAD (acute kidney injury) Diagnosis Current: Yes (3) Malignant pleural effusion Diagnosis Current: Yes (4) Tachycardia Diagnosis Current: Yes (5) Diabetes Diagnosis Current: Yes (6) HTN (hypertension) Diagnosis Current: Yes (7) Lung cancer Diagnosis Current: Yes (8) Postobstructive pneumonia Diagnosis Current: Yes (9) Reactive depression Diagnosis Current: Yes (10) Subclinical hyperthyroidism Diagnosis Current: Yes (11) Hemarthrosis, right knee Diagnosis Current: Yes (12) DVT (deep venous thrombosis) Diagnosis Current: Yes (13) Fever Diagnosis Current: Yes (14) Neuropathy Diagnosis Current: Yes (15) Cancer related pain Diagnosis Current: Yes (16) Lung mass Diagnosis Current: Yes (17) Bone metastasis Diagnosis Current: Yes (18) Hyperkalemia Diagnosis Current: Yes (19) Hypercalcemia Diagnosis Current: Yes (20) Acute encephalopathy Diagnosis Current: Yes Resuscitation Status: Full Code Discussion: Discussed patient's progress with daughter and at separate encounters. Advised that the patient was hospice appropriate. I expressed concern that the cancer may be too advanced for the chemotherapy agent to make a significant improvement in the patient's health the patient limited reserve/deconditioning. Family members express understanding, however, express their wish to pursue transfer to LTAC. I clarified that her respiratory status may require intubation for transport and subsequent trachostomy placement. He understands and agrees with plan and any necessary interventions required to transfer the patient, "where she can get better." Unfortunately, I do not believe the patient's fully understands her grave prognosis at this time. Have asked discharge planning to follow up. Care Planning Goals: Begin arrangements for transfer to LTAC. Currently AVAPS dependent. May require intubation for transport which would need to be arranged with the railway signal technician or anesthesia service. Depending on the time delay between intubation and transport; may ask anesthesia to provide intubation services and then placed the patient in the ICU for house convenience without necessarily turning over service to the railway signal technician. Continue to discussed the patient's expected clinical course; provide information palliative/hospice services. Remain full code. Time Spent: 30 min
--- NOTE | 2019-06-06 17:18 | PDOC PROGRESS REPORT ---
Subjective Progress Note for:: 06/06/19 Subjective:: The patient is a 64-year-old female with past medical history of hypertension, DM 2, obesity, lung cancer, and arthritis who was admitted to the orthopedic service. Hospitalist service consulted for tachycardia, SOLEDAD, medication management and subsequently developed acute respiratory failure w/ hypoxia and an accelerated junctional rhythm nonresponsive to adenosine x3 and cardioversion (100, 150, 200J). Ultimately, rate control achieved via amiodarone. Found to have large right sided pleural effusion now s/p chest tube placement and, unfortunately, failed talc pleurodesis. At this time, patient is now AVAPS dependent. Patient was seen on morning rounds with her daughter present and again, briefly, this afternoon when her was. She is found to be AVAPS dependent, tachypneic with a rate in the mid 30s, and speaking 1-2 word sentences. She is awake and A&O to self and place, but with significant fatigue; she does wake easily when I say her name. She is somewhat repetitive of her statements today, but overall oriented and appears to have capacity. Patient does ask me to discuss with her possible discharge to hospice but indicates that she would defer to him for ultimate decision making. ROS is limited secondary to mental status/fatigue. She denies pain and nausea; does not answer questions further. Discussed plan of care with daughter and ; wish to pursue transfer to LTAC. Clarified that her respiratory status may require intubation for transport, and subsequent trachostomy placement. He understands and agrees with plan. He is advised that I believe the patient is hospice appropriate and that her worsening condition is due to the advance malignancy and that I did not have confidence that the chemotherapy agent would be effective given the patient limited reserve/deconditioning. He assures understanding but continues to request arrangements be made to transfer to LTAC, "where she can get better." I do not believe the patient's fully understands the gravity of her medical condition at this time. All questions were addressed to his satisfaction. Reason For Visit: RIGHT KNEE PAIN Physical Exam Vital Signs: Temp Pulse Resp BP Pulse Ox 97.5 F 119 H 38 H 157/78 H 98 06/06/19 11:37 06/06/19 11:37 06/06/19 14:23 06/06/19 11:37 06/06/19 14:23 Pulse Oximeter Continuous Start: 06/05/19 10:16 Freq: RTQ4 Status: Active Protocol: Document 06/06/19 14:23 DSH (Rec: 06/06/19 14:24 DSH [email or web address]) Pulse Oximetry Assessment Oxygen Saturation (92-100) 98 Oxygen Delivery Method AVAP Fraction of Inspired Oxygen (FIO2) 25 Equipment Usage Equipment in Use Continuous SpO2 Machine # N2 Pulse Oximeter Nocturnal Start: 05/14/19 13:35 Freq: RTQ4 Status: Complete Protocol: Document 05/15/19 07:26 CMI (Rec: 05/15/19 07:27 CMI [email or web address]) Nocturnal Pulse Oximetry Equipment Usage Equipment Discontinued Continuous SpO2 Machine # 5 Intake & Output 06/05/19 06/06/19 06/07/19 06:59 06:59 06:59 Intake Total 2205 1244 Output Total 1625 3085 75 Balance 580 -1841 -75 Weight 111.1 kg 111.2 kg General appearance: PRESENT: cooperative, obese, well-developed, other - moderate distress; RR 30's, labored on AVAPS. Third spacing; (+) 2 pitting edema all extremities Head exam: PRESENT: atraumatic, normocephalic Eye exam: PRESENT: conjunctiva pink, EOMI, PERRLA. ABSENT: scleral icterus Mouth exam: PRESENT: moist, tongue midline Respiratory exam: PRESENT: accessory muscle use, decreased breath sounds - Rt, rhonchi - Left lower field, symmetrical, tachypnea, other - AVAPS dependent. ABSENT: rales, wheezes Cardiovascular exam: PRESENT: RRR, +S1, +S2, tachycardia - HR 110-120 Vascular exam: PRESENT: pallor GI/Abdominal exam: PRESENT: hypoactive bowel sounds, soft. ABSENT: distended, guarding, mass, organolmegaly, rebound, tenderness Rectal exam: PRESENT: deferred Extremities exam: PRESENT: +2 edema - pitting, all extremities. ABSENT: calf tenderness, clubbing, pedal edema Neurological exam: PRESENT: alert, awake, oriented to person, oriented to place, oriented to situation, CN II-XII grossly intact, other - lethargic; slightly repetative of statements/questions. ABSENT: motor sensory deficit Psychiatric exam: PRESENT: appropriate affect, normal mood. ABSENT: homicidal ideation, suicidal ideation Skin exam: PRESENT: dry, intact, pallor, warm. ABSENT: cyanosis, rash Results Laboratory Results: 06/06/19 05:47 06/05/19 05:15 06/05/19 06/05/19 06/06/19 11:41 11:41 05:47 WBC 20.5 H RBC 2.64 L Hgb 7.9 L Hct 25.0 L MCV 95 MCH 29.8 MCHC 31.5 L RDW 15.6 H Plt Count 102 L Seg Neutrophils % Not Reportable Carbonic Acid Cancelled 0.91 L HCO3/H2CO3 Ratio Cancelled 18:1 ABG pH Cancelled 7.36 ABG pCO2 Cancelled 30.2 L ABG pO2 Cancelled 96.5 ABG HCO3 Cancelled 16.5 L ABG O2 Saturation Cancelled 97.2 ABG Base Excess Cancelled -8.1 FiO2 Cancelled 30% 05/08/19 05/15/19 05/29/19 12:26 17:15 23:24 Creatine Kinase 70 CK-MB (CK-2) 3.60 Troponin I 0.084 NT-Pro-B Natriuret Pep 594 H 05/30/19 05/30/19 06/05/19 08:15 08:15 05:15 Creatine Kinase 22 L CK-MB (CK-2) 3.64 Troponin I 0.092 NT-Pro-B Natriuret Pep 1400 H Impressions: Thyroid Ultrasound 05/16/19 08:00 IMPRESSION: Multinodular goiter as detailed above. Within the left lobe of thyroid gland there is a TR 3 nodule that measures approximately 1.5 cm. Thoracentesis Ultrasound 05/17/19 08:00 IMPRESSION: Successful ultrasound-guided placement of a 10 [place] all-purpose drainage catheter into the fluid-filled right pleural space. Thoracentesis 05/20/19 00:00 IMPRESSION: SUCCESSFUL PLACEMENT OF A RIGHT SIDED CHEST TUBE USING CT GUIDANCE. Chest CT 05/28/19 00:00 IMPRESSION: 1. Persistent right pleural effusion status post right chest tube placement. Persistent collapse of right lower lobe and middle lobe. No pneumothorax. 2. Developing airspace disease the left lower lobe may represent concurrent inf ection or aspiration. 3. Bone metastasis. Head CT 05/31/19 00:00 IMPRESSION: No acute intracranial abnormality. EVIDENCE OF ACUTE STROKE: NO. Chest X-Ray 06/06/19 06:00 IMPRESSION: STABLE APPEARANCE OF THE CHEST. Assessment and Plan - Diagnosis (1) Acute respiratory failure Qualifiers: Respiratory failure complication: hypoxia and hypercapnia Qualified Code(s): J96.01 - Acute respiratory failure with hypoxia; J96.02 - Acute respiratory failure with hypercapnia Is this a current diagnosis for this admission?: Yes (2) Acute encephalopathy Is this a current diagnosis for this admission?: Yes (3) SOLEDAD (acute kidney injury) Is this a current diagnosis for this admission?: Yes (4) Malignant pleural effusion Is this a current diagnosis for this admission?: Yes (5) Tachycardia Is this a current diagnosis for this admission?: Yes (6) Diabetes Qualifiers: Diabetes mellitus type: type 2 Diabetes mellitus complication status: without complication Is this a current diagnosis for this admission?: Yes (7) HTN (hypertension) Is this a current diagnosis for this admission?: Yes (8) Lung cancer Qualifiers: Laterality: right Lung location: lower lobe of lung Qualified Code(s): C34.31 - Malignant neoplasm of lower lobe, right bronchus or lung Is this a current diagnosis for this admission?: Yes (9) Postobstructive pneumonia Is this a current diagnosis for this admission?: Yes (10) Reactive depression Is this a current diagnosis for this admission?: Yes (11) Subclinical hyperthyroidism Is this a current diagnosis for this admission?: Yes (12) Hemarthrosis, right knee Is this a current diagnosis for this admission?: Yes (13) DVT (deep venous thrombosis) Qualifiers: DVT location: lower extremity Affected thrombotic vein of extremity: femoral Chronicity: acute Laterality: right Qualified Code(s): I82.411 - Acute embolism and thrombosis of right femoral vein Is this a current diagnosis for this admission?: Yes (14) Fever Is this a current diagnosis for this admission?: Yes (15) Neuropathy Is this a current diagnosis for this admission?: Yes (16) Cancer related pain Is this a current diagnosis for this admission?: Yes (17) Lung mass Is this a current diagnosis for this admission?: Yes (18) Bone metastasis Is this a current diagnosis for this admission?: Yes (19) Hyperkalemia Is this a current diagnosis for this admission?: Yes (20) Hypercalcemia Is this a current diagnosis for this admission?: Yes - Plan Summary Summary: 06/01/2019 Had a long discussion this morning with Dr. Nye hematology oncology concerning this patient. Have gone over her entire hospitalization and admission All cultures are negative Patient is receiving daily chest tube aspirations by general surgery Patient has stage IV lung cancer with malignant pleural effusion Per family patient is a full code 06/02/2019 Consult to psychiatry today for her confusion ,agitation, and delirium Patient may need long-term hospital care, discharge planning is approaching the family concerning this Blood cultures and urine cultures are still negative 06/03/2019 Several family members in the room including her today Blood pressure stable ,pulse is running her usual around 120 She has maintained her oxygen saturation in the upper 90s on either nasal cannula or BiPAP Continue daily consultations by general surgery. Discharge planning has started paperwork for long-term admission 06/04/2019 He continues to state that the patient is improving neurologically as well as cognitively. Family states that she is sleeping better at night. They also states she is less confused. Family refused the Depakene sprinkles, stated they did not want her to have the medication. I have DC'd this medicine. Continues to run higher than normal respiration rate anywhere from 24-32 as her baseline Patient also continues to run a higher than normal heart rate though it is coming down's slightly in the 120s now down to the low 100s White count is down to 13,500, renal function appears normal 06/05/2019 Patient's mentation appears to be improving, less confusion, is more oriented to person and place. Unfortunately however patient continues to appear to be struggling with her breathing due to a multitude of factors. It sounds as though patient's pleural effusion is not going to improve significantly even with aggressive treatment Agree based on patient's respiration pattern and observation over the last week, and will probably never be able to come off of supportive breathing treatments. Try to decrease patient's IV fluids and give her some Lasix to see if this offers her any benefit, as she does sound to be a little wet in the left lower lobe. Patient's family is to make a decision concerning long-term care. In light of patient's apparent poor prognosis 06/06/19 WBCs trending up; 13.5-> 16.3-> 20.5. Remains afebrile. All prior cultures are negative. Will hold on additional antibiotics at this time. Hgb is stable; 7.9, though overall trending down from time of admission (Hgb 12.7). Heme/Onc is following. SOLEDAD is resolved. Acute encephalopathy is improved with AVAPS. A&Ox3, though fatigued/repetitive today. Discussed w/ family possible need for intubation (for transfer to LTAC) and subsequent trachostomy; patient likely to remain ventilator dependent. Surgery continues to assist w/ management of Chest Tube; unfortunately, talc pleurodesis has failed. Long discussion had with family members today regarding recommendations for hospice services. Please see separate ACP note from same date. Discharge planning is consulted; making attempts to arrange for transfer to LTAC. Still awaiting chemotherapy agent; hematology/oncology is consulted. - Time Time Spent with patient: 35 or more minutes Medications reviewed and adjusted accordingly: Yes Anticipated discharge: Other - LTAC Within: when bed available
[2019-06-06] MEDS: NORMAL SALINE 1000 ML 1,000 ML IV PRN (21:41)
[2019-06-06] MEDS: PHARMACY COMMUNICATION ORDER MC SCH (21:42)
[2019-06-07] MEDS: INSULIN LISPRO 100 UNIT/ML 3 ML VIAL SUBCUT SCH ×4 (02:40→19:02)
[2019-06-07 06:31] LABS: HEMATOCRIT 27.1 % (36.0-47.0); HEMOGLOBIN 8.6 g/dL (12.0-15.5); MEAN CORPUSCULAR HEMOGLOBIN 29.7 pg (27.0-33.4); MEAN CORPUSCULAR HGB CONC 31.6 g/dL (32.0-36.0); MEAN CORPUSCULAR VOLUME 94 fl (80-97); RED BLOOD COUNT 2.88 10^6/uL (3.72-5.28); RED CELL DISTRIBUTION WIDTH 15.8 % (11.5-14.0); WHITE BLOOD COUNT 26.8 10^3/uL (4.0-10.5)
[2019-06-07 06:50] LABS: ALBUMIN 2.5 g/dL (3.5-5.0); ALKALINE PHOSPHATASE 163 U/L (38-126); ANION GAP 14 (5-19); ASPARTATE AMINO TRANSFERASE 38 U/L (14-36); BILIRUBIN,DIRECT 0.5 mg/dL (0.0-0.4); BILIRUBIN,TOTAL 0.9 mg/dL (0.2-1.3); BLOOD UREA NITROGEN 26 mg/dL (7-20); CALCIUM 9.4 mg/dL (8.4-10.2); CARBON DIOXIDE 19 mmol/L (22-30); CHLORIDE 109 mmol/L (98-107); GLUCOSE 215 mg/dL (75-110); POTASSIUM 3.5 mmol/L (3.6-5.0); TOTAL PROTEIN 5.4 g/dL (6.3-8.2)
[2019-06-07 06:58] LABS: PLATELET COUNT 90 10^3/uL (150-450)
[2019-06-07 07:00] LABS: ABSOLUTE LYMPHOCYTES# (MANUAL) 2.4 10^3/uL (0.5-4.7); ABSOLUTE MONOCYTES # (MANUAL) 1.6 10^3/uL (0.1-1.4); BAND NEUTROPHILS % (MANUAL) 2 % (3-5); BASOPHILS % (MANUAL) 0 % (0-2); EOSINOPHILS % (MANUAL) 0 % (0-6); LYMPHOCYTES % (MANUAL) 9 % (13-45); METAMYELOCYTES % (MANUAL) 1 % (0-1); MONOCYTES % (MANUAL) 6 % (3-13); MYELOCYTES % (MANUAL) 1 % (0); NUCLEATED RED BLOOD CELLS 1 /100 WBC (0); SEGMENTED NEUTROPHILS % (MAN) 81 % (42-78); TOTAL CELLS COUNTED 100
[2019-06-07 07:02] LABS: ANISOCYTOSIS SLIGHT; OVALOCYTES SLIGHT; PLATELET COMMENT DECREASED; POIKILOCYTOSIS SLIGHT; POLYCHROMASIA SLIGHT; ROULEAUX SLIGHT; TOXIC GRANULATION SLIGHT
--- NOTE | 2019-06-07 08:34 | PDOC PROGRESS REPORT ---
Subjective Progress Note for:: 06/07/19 Subjective:: No acute events overnight but had a long discussion with Dr. Duarte, discussed with hospitalist team, and unfortunately patient has continued right malignant pleural effusion, unfortunately pleurodesis did not take hold. Everybody had a long discussion with family, and I have previously had a long discussion with family about this issue, they are not yet ready to stop any therapy and want to continue aggressive care. In that setting she is young so we discussed that long-term acute care placement would be reasonable with the hope that she would get stronger, and we do have her oral chemotherapeutic pending delivery. Reason For Visit: RIGHT KNEE PAIN Physical Exam Vital Signs: Temp Pulse Resp BP Pulse Ox 97.6 F 119 H 43 H 168/82 H 96 06/06/19 23:39 06/06/19 23:39 06/07/19 04:41 06/06/19 23:39 06/07/19 04:41 Pulse Oximeter Continuous Start: 06/05/19 10:16 Freq: RTQ4 Status: Active Protocol: Document 06/07/19 04:41 CMI (Rec: 06/07/19 04:41 CMI [id number]) Pulse Oximetry Assessment Oxygen Saturation (92-100) 96 Oxygen Delivery Method AVAP Fraction of Inspired Oxygen (FIO2) 25 Equipment Usage Equipment in Use Continuous SpO2 Machine # 2 Pulse Oximeter Nocturnal Start: 05/14/19 13:35 Freq: RTQ4 Status: Complete Protocol: Document 05/15/19 07:26 CMI (Rec: 05/15/19 07:27 CMI [id number]) Nocturnal Pulse Oximetry Equipment Usage Equipment Discontinued Continuous SpO2 Machine # 5 Intake & Output 06/06/19 06/07/19 06/08/19 06:59 06:59 06:59 Intake Total 1244 1198 Output Total 1736 9310 Balance -1841 -342 Weight 111.2 kg 109.1 kg Results Laboratory Results: 06/07/19 05:54 06/07/19 05:54 06/05/19 06/07/19 06/07/19 11:41 05:54 05:54 WBC 26.8 H RBC 2.88 L Hgb 8.6 L Hct 27.1 L MCV 94 MCH 29.7 MCHC 31.6 L RDW 15.8 H Plt Count 90 L Seg Neutrophils % Not Reportable Carbonic Acid 0.91 L HCO3/H2CO3 Ratio 18:1 ABG pH 7.36 ABG pCO2 30.2 L ABG pO2 96.5 ABG HCO3 16.5 L ABG O2 Saturation 97.2 ABG Base Excess -8.1 FiO2 30% Sodium 141.5 Potassium 3.5 L Chloride 109 H Carbon Dioxide 19 L Anion Gap 14 BUN 26 H Creatinine 0.86 Est GFR ( Amer) > 60 Glucose 215 H Calcium 9.4 Total Bilirubin 0.9 AST 38 H Alkaline Phosphatase 163 H Total Protein 5.4 L Albumin 2.5 L 05/08/19 05/15/19 05/29/19 12:26 17:15 23:24 Creatine Kinase 70 CK-MB (CK-2) 3.60 Troponin I 0.084 NT-Pro-B Natriuret Pep 594 H 05/30/19 05/30/19 06/05/19 08:15 08:15 05:15 Creatine Kinase 22 L CK-MB (CK-2) 3.64 Troponin I 0.092 NT-Pro-B Natriuret Pep 1400 H Impressions: Thyroid Ultrasound 05/16/19 08:00 IMPRESSION: Multinodular goiter as detailed above. Within the left lobe of thyroid gland there is a TR 3 nodule that measures approximately 1.5 cm. Thoracentesis Ultrasound 05/17/19 08:00 IMPRESSION: Successful ultrasound-guided placement of a 10 Ivorian all-purpose drainage catheter into the fluid-filled right pleural space. Thoracentesis 05/20/19 00:00 IMPRESSION: SUCCESSFUL PLACEMENT OF A RIGHT SIDED CHEST TUBE USING CT GUIDANCE. Chest CT 05/28/19 00:00 IMPRESSION: 1. Persistent right pleural effusion status post right chest tube placement. Persistent collapse of right lower lobe and middle lobe. No pneumothorax. 2. Developing airspace disease the left lower lobe may represent concurrent infection or aspiration. 3. Bone metastasis. Head CT 05/31/19 00:00 IMPRESSION: No acute intracranial abnormality. EVIDENCE OF ACUTE STROKE: NO. Assessment & Plan - Diagnosis (1) Malignant pleural effusion Is this a current diagnosis for this admission?: Yes Plan: Continue with right chest tube, unfortunately pleurodesis did not work. (2) Lung cancer Qualifiers: Laterality: right Lung location: lower lobe of lung Qualified Code(s): C34.31 - Malignant neoplasm of lower lobe, right bronchus or lung Is this a current diagnosis for this admission?: Yes Plan: Start oral therapy when available (3) Effusion, right knee Is this a current diagnosis for this admission?: Yes Plan: Once she is discharged hopefully she can get back into rehab but this seems to be doing well. - Time Time Spent with patient: 35 or more minutes
--- NOTE | 2019-06-07 08:39 | RADIOLOGY REPORT (SQ) ---
EXAM DESCRIPTION: CHEST SINGLE VIEW COMPLETED DATE/TIME: 06/07/2019 8:15 am REASON FOR STUDY: pleural effusion COMPARISON: 06/06/2019 EXAM PARAMETERS: NUMBER OF VIEWS: One view. TECHNIQUE: Single frontal radiographic view of the chest acquired. RADIATION DOSE: NA LIMITATIONS: None. FINDINGS: LUNGS AND PLEURA: Persistent dense opacification of the right hemithorax, not significantl y changed from prior. Unchanged small bore right-sided chest tube. No appreciable pneumothorax. Un changed left hemithorax with retrocardiac opacities. MEDIASTINUM AND HILAR STRUCTURES: Largely obscured. HEART AND VASCULAR STRUCTURES: Stable, largely obscured. BONES: No acute findings. HARDWARE: Unchanged small bore right-sided chest tube. Unchanged right subclavian approach central v enous catheter with tip at cavoatrial junction. OTHER: No other significant finding. IMPRESSION: Unchanged dense opacification of the right hemithorax, likely combination of pleural eff usion and atelectasis/airspace disease. Stable small bore right-sided chest tube. Patchy left basilar opacities possibly atelectasis or infection. TECHNICAL DOCUMENTATION: JOB ID: [id number] [employer]- All Rights Reserved Reading location - IP/workstation name: [email or web address]
[2019-06-07] MEDS: FUROSEMIDE INJ/PF 20 MG/2 ML SDV IV SCH (09:21)
[2019-06-07] MEDS: METOPROLOL SUCCINATE 25 MG TAB.SR.24H PO SCH ×2 (09:25→22:12)
[2019-06-07] MEDS: LISINOPRIL 5 MG TABLET PO SCH (09:25)
[2019-06-07] MEDS: DIGOXIN 0.25 MG TABLET PO SCH (09:25)
[2019-06-07] MEDS: FAMOTIDINE 20 MG TABLET PO SCH ×2 (09:25→21:57)
[2019-06-07 09:45] LABS: ARTERIAL BLOOD BASE EXCESS -8.2 mmol/L; ARTERIAL BLOOD H2CO3 0.87 mmol/L (1.05-1.35); ARTERIAL BLOOD HCO3 16.1 mmol/L (20-24); ARTERIAL BLOOD PCO2 28.9 mmHg (35-45); ARTERIAL BLOOD PH 7.36 (7.35-7.45); ARTERIAL BLOOD PO2 63.6 mmHg (80-100)
[2019-06-07 09:46] LABS: ARTERIAL BLOOD FIO2 25%
[2019-06-07 10:15] LABS: PATH REVIEW PATHOLOGIST REVIEWED
--- NOTE | 2019-06-07 10:25 | PDOC PROGRESS REPORT ---
Subjective Progress Note for:: 06/07/19 Subjective:: resp status continues to decline Reason For Visit: RIGHT KNEE PAIN Physical Exam Vital Signs: Temp Pulse Resp BP Pulse Ox 97.6 F 119 H 43 H 168/82 H 96 06/06/19 23:39 06/06/19 23:39 06/07/19 04:41 06/06/19 23:39 06/07/19 04:41 Pulse Oximeter Continuous Start: 06/05/19 10:16 Freq: RTQ4 Status: Active Protocol: Document 06/07/19 04:41 CMI (Rec: 06/07/19 04:41 CMI [id number]) Pulse Oximetry Assessment Oxygen Saturation (92-100) 96 Oxygen Delivery Method AVAP Fraction of Inspired Oxygen (FIO2) 25 Equipment Usage Equipment in Use Continuous SpO2 Machine # 2 Pulse Oximeter Nocturnal Start: 05/14/19 13:35 Freq: RTQ4 Status: Complete Protocol: Document 05/15/19 07:26 CMI (Rec: 05/15/19 07:27 CMI [id number]) Nocturnal Pulse Oximetry Equipment Usage Equipment Discontinued Continuous SpO2 Machine # 5 Intake & Output 06/06/19 06/07/19 06/08/19 06:59 06:59 06:59 Intake Total 1244 1198 Output Total 3085 1540 Balance -1841 -342 Weight 111.2 kg 109.1 kg General appearance: PRESENT: disheveled, mild distress, obese. ABSENT: cooperative Head exam: PRESENT: atraumatic, normocephalic Eye exam: PRESENT: conjunctiva pale, EOMI. ABSENT: nystagmus, periorbital swelling Mouth exam: PRESENT: dry mucosa, neck supple, tongue midline Neck exam: ABSENT: carotid bruit, JVD, lymphadenopathy, thyromegaly Respiratory exam: PRESENT: decreased breath sounds, prolonged expiratory phas, rales, rhonchi, tachypnea. ABSENT: symmetrical, unlabored Cardiovascular exam: PRESENT: RRR, +S1, +S2, tachycardia Pulses: PRESENT: normal radial pulses GI/Abdominal exam: PRESENT: soft. ABSENT: guarding, mass, rebound, tenderness Extremities exam: PRESENT: +1 edema. ABSENT: calf tenderness, clubbing, joint swelling, tenderness Musculoskeletal exam: ABSENT: ambulatory, deformity, dislocation Neurological exam: PRESENT: altered Psychiatric exam: PRESENT: flat affect Skin exam: PRESENT: dry, warm Results Laboratory Results: 06/07/19 05:54 06/07/19 05:54 06/07/19 06/07/19 06/07/19 05:54 05:54 09:31 WBC 26.8 H RBC 2.88 L Hgb 8.6 L Hct 27.1 L MCV 94 MCH 29.7 MCHC 31.6 L RDW 15.8 H Plt Count 90 L Seg Neutrophils % Not Reportable Carbonic Acid 0.87 L HCO3/H2CO3 Ratio 18:1 ABG pH 7.36 ABG pCO2 28.9 L ABG pO2 63.6 L ABG HCO3 16.1 L ABG O2 Saturation 92.0 L ABG Base Excess -8.2 FiO2 25% Sodium 141.5 Potassium 3.5 L Chloride 109 H Carbon Dioxide 19 L Anion Gap 14 BUN 26 H Creatinine 0.86 Est GFR ( Amer) > 60 Glucose 215 H Calcium 9.4 Total Bilirubin 0.9 AST 38 H Alkaline Phosphatase 163 H Total Protein 5.4 L Albumin 2.5 L 05/08/19 05/15/19 05/29/19 12:26 17:15 23:24 Creatine Kinase 70 CK-MB (CK-2) 3.60 Troponin I 0.084 NT-Pro-B Natriuret Pep 594 H 05/30/19 05/30/19 06/05/19 08:15 08:15 05:15 Creatine Kinase 22 L CK-MB (CK-2) 3.64 Troponin I 0.092 NT-Pro-B Natriuret Pep 1400 H Impressions: Thyroid Ultrasound 05/16/19 08:00 IMPRESSION: Multinodular goiter as detailed above. Within the left lobe of thyroid gland there is a TR 3 nodule that measures approximately 1.5 cm. Thoracentesis Ultrasound 05/17/19 08:00 IMPRESSION: Successful ultrasound-guided placement of a 10 Guinean all-purpose drainage catheter into the fluid-filled right pleural space. Thoracentesis 05/20/19 00:00 IMPRESSION: SUCCESSFUL PLACEMENT OF A RIGHT SIDED CHEST TUBE USING CT GUIDANCE. Chest CT 05/28/19 00:00 IMPRESSION: 1. Persistent right pleural effusion status post right chest tube placement. Persistent collapse of right lower lobe and middle lobe. No pneumothorax. 2. Developing airspace disease the left lower lobe may represent concurrent infe ction or aspiration. 3. Bone metastasis. Head CT 05/31/19 00:00 IMPRESSION: No acute intracranial abnormality. EVIDENCE OF ACUTE STROKE: NO. Chest X-Ray 06/07/19 06:00 IMPRESSION: Unchanged dense opacification of the right hemithorax, likely combination of pleural effusion and atelectasis/airspace disease. Stable small bore right-sided chest tube. Patchy left basilar opacities possibly atelectasis or infection. Assessment & Plan - Diagnosis (1) Acute respiratory failure Qualifiers: Respiratory failure complication: hypoxia and hypercapnia Qualified Code(s): J96.01 - Acute respiratory failure with hypoxia; J96.02 - Acute respiratory failure with hypercapnia Is this a current diagnosis for this admission?: Yes Plan: despite AVAPS trial resp sttatus declining full code transfer to ICU FOR INTUBATION (2) Malignant pleural effusion Is this a current diagnosis for this admission?: Yes Plan: limited drainage no change in cxr
[2019-06-07] MEDS ORDERED: ETOMIDATE INJ/PF 20 MG/10 ML SDV IV ONE ×2 (11:38→16:32)
[2019-06-07] MEDS ORDERED: FENTANYL CITRATE INJ/PF 100 MCG/2 ML AMPUL ONE (11:38)
[2019-06-07] MEDS ORDERED: PROPOFOL 1,000 MG/100 ML INFUS..BTL IV ONE (11:39)
[2019-06-07] MEDS ORDERED: ROCURONIUM BROMIDE INJ 50 MG/5 ML VIAL IV ONE (11:46)
[2019-06-07] MEDS: PROPOFOL 1,000 MG/100 ML INFUS..BTL IV PRN ×3 (12:41→23:12)
[2019-06-07] MEDS ORDERED: NOREPINEPHRINE BITARTRATE INJ/PF 4 MG/4 ML SDV IV ONE (12:51)
[2019-06-07] MEDS: DEXTROSE 5%-WATER 250 ML with NOREPINEPHRINE BITARTRATE 4 MG IV PRN ×4 (13:00→21:59)
--- NOTE | 2019-06-07 14:01 | Operative Report ---
Bedside Procedure - History of Present Illness History of Present Illness: VLADIMIR LUCERO is a 64 year old female well-known to [facility] carrying a diagnosis of metastatic adenocarcinoma of the lung. She presented with increasing shortness of breath has effusion in the right hemithorax. Currently has a chest tube is draining intermittently. She is on BiPAP with worsening respiratory distress. Has significant respiratory failure. Indication for Procedure: No IV access. Old previous CVC Date: 06/07/19 Provider: LAM CHAVES - Central Line Left Internal jugular Time completed: 13:30 Consent obtained: Yes Central line pre-insertion: Sterile PPE donned, Chloraprep applied, Sterile drapes applied Central line size (Fr.): 7 Central line lumen type: Triple Ultrasound guided: Yes CM at insertion site: 20 Line secured with sutures: Yes Central line post-insertion: Blood return from lumens, Biopatch applied, Sutured, Sterile dressing applied, Position confirmed w/ CXR, Other Complications: No
--- NOTE | 2019-06-07 14:09 | Operative Report ---
Bedside Procedure - History of Present Illness History of Present Illness: VLADIMIR LUCERO is a 64 year old female well-known to [facility] carrying a diagnosis of metastatic adenocarcinoma of the lung. She presented with increasing shortness of breath has effusion in the right hemithorax. Currently has a chest tube is draining intermittently. She is on BiPAP with worsening respiratory distress. Has significant respiratory failure. Requires mechanical ventilation. Procedure Preop diagnosis: Hypoxic Respiratory Failure Postop diagnosis: Same Procedure: Emergent Intubation Proceduralist: Divya FUENTES [facility] Cigarette Tester: Bedside nursing and RT staff Complications: None Estimated blood loss: None Anesthesia: Fentanyl 100 mcg, Etomidate 20 mg, Rocuronium 125 mg Consent: Obtained from patient and medical power of personal injury attorney Procedure: Patient was appropriate identified secondary to ongoing critical care chart check name bracelet. Available equipment was immediately at bedside including advanced airway, LMA and glide scope modalities. Patient has a recent history of metastatic lung cancer with effusions of right chest. With available equipment immediately at bedside we rapidly induced and intubated patient under a grade 1 view using direct laryngoscopy size 4 Paramjit blade. Easy mask, easy ventilation. Transient hypoxia which resolved quickly Breath sounds were diminished on the right side but present. ET tube secured at 23 cm at lip. Significant loss of teeth identified prior to procedure. No dental injury post intubation Indication for Procedure: Acute respiratory failure Date: 06/07/19 Provider: LAM CHAVES
--- NOTE | 2019-06-07 14:23 | Operative Report ---
Bedside Procedure - History of Present Illness History of Present Illness: VLADIMIR LUCERO is a 64 year old female well-known to [place] [facility] carrying a diagnosis of metastatic adenocarcinoma of the lung. She presented with increasing shortness of breath has effusion in the right hemithorax. Currently has a chest tube is draining intermittently. She is on BiPAP with worsening respiratory distress. Has significant respiratory failure. Requires mechanical ventilation. Procedure Preop diagnosis: Hypoxic Respiratory Failure, Postop diagnosis: Same Procedure: Right radial arterial catheter Proceduralist: Divya FUENTES [facility] Metallurgical [employer] Materials Technician: Bedside nursing and RT staff Complications: None Estimated blood loss: None Anesthesia: Fentanyl 100 mcg, Etomidate 20 mg, Rocuronium 125 mg Consent: Obtained from patient and medical power of staff attorney Procedure: Patient was appropriate identified secondary to ongoing critical care chart check name bracelet. Available equipment was immediately at bedside. Patient has a recent history of metastatic lung cancer with effusions of right chest. Intubated for respiratory failure. Hypotensive after intubation. Required levophed Right wrist prepped and draped in sterile fashion. Allowed to dry. Quinke- Seldinger needle placed in artery on second attempt. Pulsatile blood flow noted. Wire placed without difficulty. After the wire was placed the needle was removed. A 20-gauge catheter was inserted over wire using typical Seldinger t echnique. Wire was removed and pulsatile blood flow was noted and allowed to clear debris. A syringe was then affixed to the catheter to allow suturing to occur x1. And then was affixed to transducer and biphasic waveform was noted. Catheter was re-sterilized with chlorhexidine allowed to dry and a sterile dressing was applied. Patient tolerate procedure well no complications. Indication for Procedure: Hypotension Date: 06/07/19 Provider: LAM CHAVES
[2019-06-07] MEDS ORDERED: NORMAL SALINE INJ/PF 0.9% 10 ML SDV IV PRN (14:37)
[2019-06-07] MEDS ORDERED: NORMAL SALINE 1000 ML 500 ML IV ONE (14:37)
[2019-06-07] MEDS ORDERED: PHARMACY COMMUNICATION ORDER MC NR (14:45)
--- NOTE | 2019-06-07 14:59 | PDOC CRITICAL CARE PROG REPORT ---
General Date:: 06/07/19 ICU Day:: 1 Ventilator Day:: 1 Hospital Day:: Resuscitation Status: Full Code Medical Power of Medical Research Tech: Events in the past 12 to 24 Hours:: The patient was readmitted quickly to ICU after release from the ICU to the floor a number of days ago. She has had worsening shortness of breath and is tenuously maintained on noninvasive ventilation in the form of BiPAP. I was called to the floor by the hospitalist service because of worsening shortness of breath and higher blood pressure. Found the patient in extremis unable to talk because of the BiPAP but because of her shortness of breath as well. Patient has had a significant hospital course and was originally admitted 05/16/2019 for right knee discomfort. He has significant pleural effusion with shortness of breath that required pleurodesis here at this institution and a chest tube. She has not improved. Was recently diagnosed with adenocarcinoma in March 2019 which on PET scan demonstrated widely metastatic disease. She and the family have wanted full aggressive care with the plan to travel to [facility] for definitive treatment. Fortunately she has had significant decline and complications not allowing for her to be transferred. The plan was for her to go to LTAC to possibly improve her status and receive chemotherapy. To obtain much history from the patient and most of the history was obtained from the chart check and with staff. She was brought to the ICU where she quickly went underwent rapid sequence intubation. We also ascertained that her central venous catheter had originally been placed May 22, 2019 and we quickly remove this and placed a new central venous catheter as well as an arterial catheter. He had transient hypotension intubation which improved with IV fluids. A critical care ultrasound was done which showed significant dilation of the IVC. Subxiphoid views of basic echo showed what appeared to be a significant pericardial effusion. Stat echo was called for and showed a mild to moderate effusion without any diastolic collapse. Of note her previous ejection fraction was noted to be 30 to 35% however on our evaluation ejection fraction was greater than 55 to 60%. Review of systems relevant to events:: Patient currently is in extremis with increased respiratory rate on different BiPAP settings. She endorses pain and difficulty breathing. Reason for ICU Addmission:: Increased WOB, acute respiratory faiure, Lung cancer. Hypercalcemia - Medications: Medications reviewed and adjusted accordingly: Yes Vasopressors:: Levophed started but weaned after fluids given. Sedation:: Propofol Physical Exam Vital Signs: Temp Pulse Resp BP Pulse Ox 98.6 F 119 H 43 H 160/90 H 97 06/07/19 12:44 06/07/19 12:44 06/07/19 12:44 06/07/19 12:44 06/07/19 12:44 Pulse Oximeter Continuous Start: 06/05/19 10:16 Freq: RTQ4 Status: Complete Protocol: Document 06/07/19 12:00 DSH (Rec: 06/07/19 12:03 DSH [place] [id number]) Pulse Oximetry Assessment Oxygen Saturation (92-100) 97 Oxygen Delivery Method AVAP Fraction of Inspired Oxygen (FIO2) 25 Equipment Usage Equipment in Use Continuous SpO2 Machine # 2 Pulse Oximeter Nocturnal Start: 05/14/19 13:35 Freq: RTQ4 Status: Complete Protocol: Document 05/15/19 07:26 CMI (Rec: 05/15/19 07:27 CMI [place] [id number]) Nocturnal Pulse Oximetry Equipment Usage Equipment Discontinued Continuous SpO2 Machine # 5 Intake & Output 06/06/19 06/07/19 06/08/19 06:59 06:59 06:59 Intake Total 1244 1198 Output Total 3085 1540 15 Balance -1841 -342 -15 Weight 111.2 kg 109.1 kg Weight/Height Weight 109.1 kg Height 5 ft 10 in General appearance: PRESENT: morbidly obese Exam: Morbidly obese very ill appearing 64-year-old white female in respiratory extremis. She is following commands but lethargic. Head exam: PRESENT: atraumatic, normocephalic Eye exam: PRESENT: conjunctiva pink, EOMI, PERRLA. ABSENT: conjunctival injection, nystagmus, scleral icterus Mouth exam: PRESENT: dry mucosa Teeth exam: PRESENT: edentulous - Near edentulous. One to two teeth noted, poor dentation Throat exam: ABSENT: post pharyngeal erythema, tonsillar erythema Neck exam: ABSENT: carotid bruit, JVD, lymphadenopathy, thyromegaly, tracheal deviation Respiratory exam: PRESENT: accessory muscle use, decreased breath sounds, tachypnea. ABSENT: unlabored Cardiovascular exam: PRESENT: +S1, +S2, tachycardia Pulses: PRESENT: +1 pedal pulses bilateral GI/Abdominal exam: PRESENT: normal bowel sounds, soft. ABSENT: distended, g uarding, mass, organolmegaly, rebound, tenderness Rectal exam: PRESENT: deferred Extremities exam: PRESENT: pedal edema Musculoskeletal exam: ABSENT: deformity, dislocation Neurological exam: PRESENT: awake, oriented to person, CN II-XII grossly intact. ABSENT: motor sensory deficit Psychiatric exam: PRESENT: agitated, anxious Focused psych exam: PRESENT: psychomotor agitation, restlessness Skin exam: PRESENT: intact. ABSENT: cyanosis, erythema, jaundice, mottled, petechiae Laboratory/Radiographs Laboratory Results: 06/07/19 05:54 06/07/19 05:54 06/07/19 06/07/19 06/07/19 05:54 05:54 09:31 WBC 26.8 H RBC 2.88 L Hgb 8.6 L Hct 27.1 L MCV 94 MCH 29.7 MCHC 31.6 L RDW 15.8 H Plt Count 90 L Seg Neutrophils % Not Reportable Carbonic Acid 0.87 L HCO3/H2CO3 Ratio 18:1 ABG pH 7.36 ABG pCO2 28.9 L ABG pO2 63.6 L ABG HCO3 16.1 L ABG O2 Saturation 92.0 L ABG Base Excess -8.2 FiO2 25% Sodium 141.5 Potassium 3.5 L Chloride 109 H Carbon Dioxide 19 L Anion Gap 14 BUN 26 H Creatinine 0.86 Est GFR ( Amer) > 60 Glucose 215 H Calcium 9.4 Total Bilirubin 0.9 AST 38 H Alkaline Phosphatase 163 H Total Protein 5.4 L Albumin 2.5 L 05/08/19 05/15/19 05/29/19 12:26 17:15 23:24 Creatine Kinase 70 CK-MB (CK-2) 3.60 Troponin I 0.084 NT-Pro-B Natriuret Pep 594 H 05/30/19 05/30/19 06/05/19 08:15 08:15 05:15 Creatine Kinase 22 L CK-MB (CK-2) 3.64 Troponin I 0.092 NT-Pro-B Natriuret Pep 1400 H Impressions: Thyroid Ultrasound 05/16/19 08:00 IMPRESSION: Multinodular goiter as detailed above. Within the left lobe of thyroid gland there is a TR 3 nodule that measures approximately 1.5 cm. Thoracentesis Ultrasound 05/17/19 08:00 IMPRESSION: Successful ultrasound-guided placement of a 10 [place] all-purpose drainage catheter into the fluid-filled right pleural space. Thoracentesis 05/20/19 00:00 IMPRESSION: SUCCESSFUL PLACEMENT OF A RIGHT SIDED CHEST TUBE USING CT GUIDANCE. Chest CT 05/28/19 00:00 IMPRESSION: 1. Persistent right pleural effusion status post right chest tube placement. Persistent collapse of right lower lobe and middle lobe. No pneumothorax. 2. Developing airspace disease the left lower lobe may represent concurrent infection or aspiration. 3. Bone metastasis. Head CT 05/31/19 00:00 IMPRESSION: No acute intracranial abnormality. EVIDENCE OF ACUTE STROKE: NO. Chest X-Ray 06/07/19 06:00 IMPRESSION: Unchanged dense opacification of the right hemithorax, likely combination of pleural effusion and atelectasis/airspace disease. Stable small bore right-sided chest tube. Patchy left basilar opacities possibly atelectasis or infection. All labs, radiographs, diagnostic studies and EKGs were personally reviewed: Yes In addition, reports of radiographic and diagnostic studies were read: Yes Assessment and Plan - Diagnosis (1) Acute respiratory failure with hypoxia Is this a current diagnosis for this admission?: Yes (2) Hypotension (arterial) Qualifiers: Hypotension type: other hypotension type Qualified Code(s): I95.89 - Other hypotension Is this a current diagnosis for this admission?: Yes (3) Malignant pleural effusion Is this a current diagnosis for this admission?: Yes (4) Adenocarcinoma of lung, stage 4 Qualifiers: Laterality: right Qualified Code(s): C34.91 - Malignant neoplasm of unspecified part of right bronchus or lung Is this a current diagnosis for this admission?: Yes (5) Pericardial effusion without cardiac tamponade Is this a current diagnosis for this admission?: Yes (6) Morbid exogenous obesity Is this a current diagnosis for this admission?: Yes Plan Summary: Patient obviously requires ICU admission and was rapidly intubated. Entry line and arterial catheters were placed. Plan is to have bronchoscopy today to determine whether the right lung can be aerated. On chest x-ray there is significant lung volume loss which is been ongoing for a number of days. Obtain CT of chest to rule out loculated effusions. Patient's significant obesity and large pendulous breasts may make it difficult to place a larger chest tube but this may be what is needed and necessary to improve the effusion. Hopefully the CT scan will better identify the anatomy. Had a lengthy discussion with oncology. They are willing to offer an oral chemotherapy agent to determine whether there will be any efficacious results. Unable to give down the OG tube they are considering chemotherapy as salvage. Did discuss with the family that this would be a time-limited trial and we came to an agreement regarding full measures to assist in her care. Patient has had a central venous catheter in since May 22 in the right subclavian region. We will remove this. Check for blood cultures and evidence of infection. Will obtain BAL to rule out postobstructive pneumonia. Awaiting lactic acid and other laboratory parameters. Patient's prognosis and Hutchinson score are significantly poor and elevated. Family has not designated DNR but this may need to be addressed as her situation unfolds. Patient has a leukocytosis and will try to determine the etiology of this. Do not see any recent use of steroids. Patient had significant hypotension after intubation which improved with volume resuscitation. Basic critical care echo and ultrasound showed complex effusion on the right and an ejection fraction of approximately 60%. There was a mild to moderate pericardial effusion but more formal echo does not show any diastolic collapse on M-mode. We will need to place Christian we will check urinalysis as well. Critical Time Critical Time (minutes): 120 Level of Care: ICU -: 1. The care of a critical patient is a dynamic process. This note is a service support representative synopsis but static in nature. The timeframe for treatments given in order is not necessary the actual time these treatments may have been done. 2. This patient requires critical care secondary to ongoing requirements for therapy not offered or safe outside the critical care environment. Transfer to a lower level of care with altered life or limb morbidity and mortality. 3. Multidisciplinary rounds completed. 4. ABCDE bundle addressed.
--- NOTE | 2019-06-07 15:30 | PDOC PROGRESS REPORT ---
Subjective Progress Note for:: 06/07/19 Subjective:: The patient is a 64-year-old female with past medical history of hypertension, DM 2, obesity, lung cancer, and arthritis who was admitted to the orthopedic service. Hospitalist service consulted for tachycardia, SOLEDAD, medication management and subsequently developed acute respiratory failure w/ hypoxia and an accelerated junctional rhythm nonresponsive to adenosine x3 and cardioversion (100, 150, 200J). Ultimately, rate control achieved via amiodarone. Found to have large right sided pleural effusion now s/p chest tube placement and, unfortunately, failed talc pleurodesis. At this time, patient is now AVAPS dependent. Patient was seen on morning rounds with 1 daughter present and again shortly later with multiple family members, Bekah Salmon (ADONIS), and Dr. Mendoza, present. She remains AVAPS dependent, tachypneic with a rate now in the mid 40s, speaking 1-2 word sentences, now with accessory muscle use, grunting, and increased lethargy. She is arousable; A&O to self. She does wake easily when I say her name, but is not able to participate in meaningful conversation today. Now clearly in extremis. ROS is limited secondary to mental status/fatigue. Long discussion had with family members regarding the need for the patient to be upgraded to ICU for imminent intubation and stabilization of her respiratory status. They have many concerns and questions regarding the previous plan to transition to LTAC and initiation of chemotherapy agents; they are informed that prior to making any of those arrangements, first the patient must be stabilized which will require returning to ventilator support. Dr. Mendoza was at bedside to assist with the family conversation. At this time, family requests aggressive interventions; patient remains full code. Spoke with Dr. Stokes who did come to the bedside to evaluate the patient; has agreed to accept her into his service for critical care managment. Reason For Visit: RIGHT KNEE PAIN Physical Exam Vital Signs: Temp Pulse Resp BP Pulse Ox 98.6 F 117 H 20 127/80 H 94 06/07/19 12:44 06/07/19 14:00 06/07/19 14:00 06/07/19 14:00 06/07/19 14:00 Pulse Oximeter Continuous Start: 06/05/19 10:16 Freq: RTQ4 Status: Complete Protocol: Document 06/07/19 12:00 DSH (Rec: 06/07/19 12:03 [email or web address]) Pulse Oximetry Assessment Oxygen Saturation (92-100) 97 Oxygen Delivery Method AVAP Fraction of Inspired Oxygen (FIO2) 25 Equipment Usage Equipment in Use Continuous SpO2 Machine # 2 Pulse Oximeter Nocturnal Start: 05/14/19 13:35 Freq: RTQ4 Status: Complete Protocol: Document 05/15/19 07:26 CMI (Rec: 05/15/19 07:27 CMI [place] [id number]) Nocturnal Pulse Oximetry Equipment Usage Equipment Discontinued Continuous SpO2 Machine # 5 Intake & Output 06/06/19 06/07/19 06/08/19 06:59 06:59 06:59 Intake Total 1244 1198 Output Total 4335 1540 15 Balance -1841 -342 -15 Weight 111.2 kg 109.1 kg General appearance: PRESENT: morbidly obese, severe distress, well-developed, well-nourished, other - Third spacing; (+) 2 pitting edema all extremities Head exam: PRESENT: atraumatic, normocephalic Eye exam: PRESENT: conjunctiva pink, EOMI, PERRLA. ABSENT: scleral icterus Ear exam: PRESENT: normal external ear exam Mouth exam: PRESENT: moist, tongue midline Respiratory exam: PRESENT: accessory muscle use, decreased breath sounds - Rt lung durán, prolonged expiratory phas, rhonchi - Left, symmetrical, tachypnea, other - AVAPS dependent. ABSENT: rales, unlabored, wheezes Cardiovascular exam: PRESENT: RRR, +S1, +S2. ABSENT: diastolic murmur, rubs, systolic murmur Vascular exam: PRESENT: pallor Rectal exam: PRESENT: deferred Neurological exam: PRESENT: oriented to person, CN II-XII grossly intact, other - lethargic; repetative of statements/questions. ABSENT: motor sensory deficit Psychiatric exam: PRESENT: appropriate affect, normal mood. ABSENT: homicidal i deation, suicidal ideation Skin exam: PRESENT: dry, intact, warm. ABSENT: cyanosis, rash Results Laboratory Results: 06/07/19 05:54 06/07/19 05:54 06/07/19 06/07/19 06/07/19 05:54 05:54 09:31 WBC 26.8 H RBC 2.88 L Hgb 8.6 L Hct 27.1 L MCV 94 MCH 29.7 MCHC 31.6 L RDW 15.8 H Plt Count 90 L Seg Neutrophils % Not Reportable Carbonic Acid 0.87 L HCO3/H2CO3 Ratio 18:1 ABG pH 7.36 ABG pCO2 28.9 L ABG pO2 63.6 L ABG HCO3 16.1 L ABG O2 Saturation 92.0 L ABG Base Excess -8.2 FiO2 25% Sodium 141.5 Potassium 3.5 L Chloride 109 H Carbon Dioxide 19 L Anion Gap 14 BUN 26 H Creatinine 0.86 Est GFR ( Amer) > 60 Glucose 215 H Calcium 9.4 Total Bilirubin 0.9 AST 38 H Alkaline Phosphatase 163 H Total Protein 5.4 L Albumin 2.5 L 05/08/19 05/15/19 05/29/19 12:26 17:15 23:24 Creatine Kinase 70 CK-MB (CK-2) 3.60 Troponin I 0.084 NT-Pro-B Natriuret Pep 594 H 05/30/19 05/30/19 06/05/19 08:15 08:15 05:15 Creatine Kinase 22 L CK-MB (CK-2) 3.64 Troponin I 0.092 NT-Pro-B Natriuret Pep 1400 H Impressions: Thyroid Ultrasound 05/16/19 08:00 IMPRESSION: Multinodular goiter as detailed above. Within the left lobe of thyroid gland there is a TR 3 nodule that measures approximately 1.5 cm. Thoracentesis Ultrasound 05/17/19 08:00 IMPRESSION: Successful ultrasound-guided placement of a 10 [place] all-purpose drainage catheter into the fluid-filled right pleural space. Thoracentesis 05/20/19 00:00 IMPRESSION: SUCCESSFUL PLACEMENT OF A RIGHT SIDED CHEST TUBE USING CT GUIDANCE. Chest CT 05/28/19 00:00 IMPRESSION: 1. Persistent right pleural effusion status post right chest tube placement. Persistent collapse of right lower lobe and middle lobe. No pneumothorax. 2. Developing airspace disease the left lower lobe may represent concurrent infection or aspiration. 3. Bone metastasis. Head CT 05/31/19 00:00 IMPRESSION: No acute intracranial abnormality. EVIDENCE OF ACUTE STROKE: NO. Chest X-Ray 06/07/19 06:00 IMPRESSION: Unchanged dense opacification of the right hemithorax, likely combination of pleural effusion and atelectasis/airspace disease. Stable small bore right-sided chest tube. Patchy left basilar opacities possibly atelectasis or infection. Assessment and Plan - Diagnosis (1) Acute respiratory failure Qualifiers: Respiratory failure complication: hypoxia and hypercapnia Qualified Code(s): J96.01 - Acute respiratory failure with hypoxia; J96.02 - Acute respir atory failure with hypercapnia Is this a current diagnosis for this admission?: Yes (2) Acute encephalopathy Is this a current diagnosis for this admission?: Yes (3) SOLEDAD (acute kidney injury) Is this a current diagnosis for this admission?: Yes (4) Malignant pleural effusion Is this a current diagnosis for this admission?: Yes (5) Tachycardia Is this a current diagnosis for this admission?: Yes (6) Diabetes Qualifiers: Diabetes mellitus type: type 2 Diabetes mellitus complication status: without complication Is this a current diagnosis for this admission?: Yes (7) HTN (hypertension) Is this a current diagnosis for this admission?: Yes (8) Lung cancer Qualifiers: Laterality: right Lung location: lower lobe of lung Qualified Code(s): C34.31 - Malignant neoplasm of lower lobe, right bronchus or lung Is this a current diagnosis for this admission?: Yes (9) Postobstructive pneumonia Is this a current diagnosis for this admission?: Yes (10) Reactive depression Is this a current diagnosis for this admission?: Yes (11) Subclinical hyperthyroidism Is this a current diagnosis for this admission?: Yes (12) Hemarthrosis, right knee Is this a current diagnosis for this admission?: Yes (13) DVT (deep venous thrombosis) Qualifiers: DVT location: lower extremity Affected thrombotic vein of extremity: femoral Chronicity: acute Laterality: right Qualified Code(s): I82.411 - Acute embolism and thrombosis of right femoral vein Is this a current diagnosis for this admission?: Yes (14) Fever Is this a current diagnosis for this admission?: Yes (15) Neuropathy Is this a current diagnosis for this admission?: Yes (16) Cancer related pain Is this a current diagnosis for this admission?: Yes (17) Lung mass Is this a current diagnosis for this admission?: Yes (18) Bone metastasis Is this a current diagnosis for this admission?: Yes (19) Hyperkalemia Is this a current diagnosis for this admission?: Yes (20) Hypercalcemia Is this a current diagnosis for this admission?: Yes - Plan Summary Summary: 06/01/2019 Had a long discussion this morning with Dr. Nye hematology oncology concerning this patient. Have gone over her entire hospitalization and admission All cultures are negative Patient is receiving daily chest tube aspirations by general surgery Patient has stage IV lung cancer with malignant pleural effusion Per family patient is a full code 06/02/2019 Consult to psychiatry today for her confusion ,agitation, and delirium Patient may need long-term hospital care, discharge planning is approaching the family concerning this Blood cultures and urine cultures are still negative 06/03/2019 Several family members in the room including her today Blood pressure stable ,pulse is running her usual around 120 She has maintained her oxygen saturation in the upper 90s on either nasal cannula or BiPAP Continue daily consultations by general surgery. Discharge planning has started paperwork for long-term admission 06/04/2019 He continues to state that the patient is improving neurologically as well as cognitively. Family states that she is sleeping better at night. They also states she is less confused. Family refused the Depakene sprinkles, stated they did not want her to have the medication. I have DC'd this medicine. Continues to run higher than normal respiration rate anywhere from 24-32 as her baseline Patient also continues to run a higher than normal heart rate though it is coming down's slightly in the 120s now down to the low 100s White count is down to 13,500, renal function appears normal 06/05/2019 Patient's mentation appears to be improving, less confusion, is more oriented to person and place. Unfortunately however patient continues to appear to be struggling with her breathing due to a multitude of factors. It sounds as though patient's pleural effusion is not going to improve sig nificantly even with aggressive treatment Agree based on patient's respiration pattern and observation over the last week, and will probably never be able to come off of supportive breathing treatments. Try to decrease patient's IV fluids and give her some Lasix to see if this offers her any benefit, as she does sound to be a little wet in the left lower lobe. Patient's family is to make a decision concerning long-term care. In light of patient's apparent poor prognosis 06/06/19 WBCs trending up; 13.5-> 16.3-> 20.5. Remains afebrile. All prior cultures are negative. Will hold on additional antibiotics at this time. Hgb is stable; 7.9, though overall trending down from time of admission (Hgb 12.7). Heme/Onc is following. SOLEDAD is resolved. Acute encephalopathy is improved with AVAPS. A&Ox3, though fatigued/repetitive today. Discussed w/ family possible need for intubation (for transfer to LTAC) and subsequent trachostomy; patient likely to remain ventilator dependent. Surgery continues to assist w/ management of Chest Tube; unfortunately, talc pleurodesis has failed. Long discussion had with family members today regarding recommendations for hospice services. Please see separate ACP note from same date. Discharge planning is consulted; making attempts to arrange for transfer to LTAC. Still awaiting chemotherapy agent; hematology/oncology is consulted. 06/07/19 WBCs trending up; 13.5-> 16.3-> 20.5-> 26. Remains afebrile. All prior cultures are negative. ? post obstructive pneumonia. Hgb is stable; 8.6, though overall trending down from time of admission (Hgb 12.7). Heme/Onc is following. SOLEDAD is resolved. Acute encephalopathy is improved with AVAPS; though, worsened today r/t respiratory distress. A&O to self and lethargic. Surgery continues to assist w/ management of Chest Tube; unfortunately, talc pleurodesis has failed. The patient is in acute respiratory failure with hypoxia; clear extremities with a VATS dependence, tachypnea with respiratory rate in the 40s, 1-2 word sentences, with accessory muscle use and grunting. Reviewed the patient's clinical course with family members; requesting continued aggressive interventions with the ultimate goal of stabilizing the patient for trial of chemotherapy. Spoke with Dr. Stokes who came to the bedside to provide an assessment; agrees that the patient should be upgraded to the ICU for immediate intubation. Patient is upgraded to the ICU; appreciate Dr. Mendoza's and Dr. Lea's assistance. - Time Time Spent with patient: 35 or more minutes Medications reviewed and adjusted accordingly: Yes
--- NOTE | 2019-06-07 15:43 | RADIOLOGY REPORT (SQ) ---
EXAM DESCRIPTION: CHEST SINGLE VIEW COMPLETED DATE/TIME: 06/07/2019 3:20 pm REASON FOR STUDY: tube placement COMPARISON: Earlier same day. NUMBER OF VIEWS: One view. TECHNIQUE: Single frontal radiographic image of the chest acquired. LIMITATIONS: None. FINDINGS: Endotracheal tube between thoracic inlet and rita. Nasogastric tube extends into the le ft upper quadrant. Unchanged position of right-sided chest tube. Complete opacification of the righ t lung. No pneumothorax. IMPRESSION: Collapse of the right lung status post intubation. No pneumothorax. Reading location - IP/workstation name: [email or web address]
[2019-06-07] MEDS: LIDOCAINE 5% (700 MG) TRANSDERMAL ADH..PATCH TP SCH (15:44)
[2019-06-07] MEDS ORDERED: NORMAL SALINE 500 ML IV ONE (16:15)
[2019-06-07] MEDS ORDERED: FENTANYL CITRATE INJ/PF 100 MCG/2 ML AMPUL IV ONE (16:32)
[2019-06-07] MEDS ORDERED: DIPHENHYDRAMINE HCL 50 MG/ML VIAL IV ONE (16:39)
[2019-06-07] MEDS ORDERED: FENTANYL CITRATE INJ/PF 100 MCG/2 ML AMPUL IV PRN (16:53)
[2019-06-07 17:16] LABS: APPEARANCE,URINE CLOUDY; BILIRUBIN,URINE NEGATIVE (NEGATIVE); COLOR,URINE YELLOW; GLUCOSE, URINE NEGATIVE (NEGATIVE); KETONES,URINE TRACE mg/dL (NEGATIVE); LEUKOCYTE ESTERASE,URINE TRACE (NEGATIVE); NITRITE,URINE NEGATIVE (NEGATIVE); PROTEIN,URINE 100 mg/dL (NEGATIVE); URINE SPECIFIC GRAVITY 1.015
[2019-06-07 17:19] LABS: INTERNATIONAL RATION (INR) 1.51; PARTIAL THROMBOPLASTIN TIME 34.3 SEC (23.5-35.8); PROTHROMBIN TIME 18.4 SEC (11.4-15.4)
[2019-06-07] MEDS: FENTANYL CITRATE INJ/PF 100 MCG/2 ML AMPUL IV PRN (17:20)
[2019-06-07] MEDS: HYDROCORTISONE SOD SUCCINATE INJ/PF 100 MG/2 ML SDV IV SCH ×2 (17:21→21:58)
[2019-06-07 17:28] LABS: ARTERIAL BLOOD BASE EXCESS -9.8 mmol/L; ARTERIAL BLOOD FIO2 40; ARTERIAL BLOOD H2CO3 0.83 mmol/L (1.05-1.35); ARTERIAL BLOOD HCO3 14.7 mmol/L (20-24); ARTERIAL BLOOD PCO2 27.7 mmHg (35-45); ARTERIAL BLOOD PH 7.34 (7.35-7.45); ARTERIAL BLOOD PO2 68.2 mmHg (80-100); ARTERIAL BLOOD TOTAL CO2 15.5 mmol/L (21-25)
[2019-06-07] MEDS: MEROPENEM 1 GM in NORMAL SALINE 50 ML IV SCH (18:50)
--- NOTE | 2019-06-07 19:16 | RADIOLOGY REPORT (SQ) ---
EXAM DESCRIPTION: CT CHEST WITH COMPLETED DATE/TIME: 06/07/2019 6:26 pm REASON FOR STUDY: loculated pleural effusion COMPARISON: CT chest 05/28/2019 TECHNIQUE: CT scan of the chest performed using helical scanning technique with dynamic intravenous contrast injection. Images reviewed with lung, soft tissue and bone windows. Reconstructed coronal and sagittal MPR and MIP images reviewed. All images stored on PACS. All CT scanners at this facility use dose modulation, iterative reconstruction, and/or weight based d osing when appropriate to reduce radiation dose to as low as reasonably achievable (ALARA). [facility]: Dose Right [facility]: CareDose [facility]: Dose Right [facility]: Teradose 4D [facility]: Shopeando CONTRAST TYPE AND DOSE: contrast/concentration: Isovue 300.00 mg/ml; Total Contrast Delivered: 80.0 ml; Total Saline Delivered: 55.0 ml 80 mL Isovue 300- low osmolar. RENAL FUNCTION: BUN 26, creatinine 0.86 RADIATION DOSE: CT Rad equipment meets quality standard of care and radiation dose reduction techniq ues were employed. CTDIvol: 19.2 mGy. DLP: 785 mGy-cm. . LIMITATIONS: None. FINDINGS: LUNGS AND PLEURA: Increased size of a large loculated right-sided nonenhancing pleural eff usion with right upper lobe volume loss and collapse of the right middle and right lower lobes. Righ t posterior approach pleural catheter terminating at the posterior upper thorax. Small amount of ant i dependent pleural air, and air adjacent to the catheter tip. Increased patchy and ground-glass opa cities throughout the left lung. Suspected mucous plug partially obstructing the right mainstem bron chus. HILAR AND MEDIASTINAL STRUCTURES: No identified masses or abnormal nodes. HEART AND VASCULAR STRUCTURES: No aneurysm or dissection. No central pulmonary emboli. No pericardi al effusion. HARDWARE: Endotracheal tube terminating 3.7 cm above the rita. Left internal jugular central venou s catheter terminating at the superior cavoatrial junction. Enteric tube terminating within the dorys alton body. UPPER ABDOMEN: No significant findings. Limited exam. THYROID AND OTHER SOFT TISSUES: No masses. No adenopathy. BONES: Re-demonstrated lytic lesions within multiple right ribs. OTHER: No other significant finding. IMPRESSION: Increased size of a loculated right-sided hydropneumothorax with unchanged positioning o f a posterior approach pleural catheter. Progressive right upper lobe volume loss and persistent rig ht middle/ lower lobe collapse. Increased left lung patchy and ground-glass airspace opacities concerning for worsening infectious pr ocess/pulmonary edema. TECHNICAL DOCUMENTATION: JOB ID: [id number] Quality ID # [id number]: Final reports with documentation of one or more dose reduction techniques (e.g., Au tomated exposure control, adjustment of the mA and/or kV according to patient size, use of iterative reconstruction technique) 2010 [employer]- All Rights Reserved Reading location - IP/workstation name: [email or web address]
[2019-06-07] MEDS: LINEZOLID 600 MG/300 ML RTUPB IV SCH (19:33)
--- NOTE | 2019-06-07 21:35 | EKG REPORT ---
SEVERITY:- ABNORMAL ECG - SINUS TACHYCARDIA REPOL ABNRM SUGGESTS ISCHEMIA, ANT-LAT LEADS ALSO CONSIDER LVH : Confirmed by: Lillie Stover 07-Jun-2019 21:35:17
[2019-06-07] MEDS: PHARMACY COMMUNICATION ORDER MC SCH (21:58)
[2019-06-07] MEDS: ALBUMIN HUMAN 12.5 GM/50 ML RTUINJ IV SCH ×2 (23:10→23:40)
[2019-06-08] MEDS: INSULIN LISPRO 100 UNIT/ML 3 ML VIAL SUBCUT SCH (00:04)
--- NOTE | 2019-06-08 00:05 | PDOC PROGRESS REPORT ---
Subjective Progress Note for:: 06/07/19 Subjective:: 64-year-old female with stage IV lung cancer, malignant pleural effusion, and now a pleurocutaneous fistula. She is short of breath, and is now intubated. She is now sedated and a meaningful review of systems is impossible to obtain. Reason For Visit: RIGHT KNEE PAIN Physical Exam Vital Signs: Temp Pulse Resp BP Pulse Ox 98.1 F 101 H 20 79/53 L 100 06/07/19 20:00 06/07/19 20:00 06/07/19 22:00 06/07/19 21:59 06/07/19 22:00 Pulse Oximeter Continuous Start: 06/05/19 10:16 Freq: RTQ4 Status: Complete Protocol: Document 06/07/19 12:00 [facility] (Rec: 06/07/19 12:[address] [email or web address]) Pulse Oximetry Assessment Oxygen Saturation (92-100) 97 Oxygen Delivery Method AVAP Fraction of Inspired Oxygen (FIO2) 25 Equipment Usage Equipment in Use Continuous SpO2 Machine # 2 Pulse Oximeter Nocturnal Start: 05/14/19 13:35 Freq: RTQ4 Status: Complete Protocol: Document 05/15/19 07:26 [facility] (Rec: 05/15/19 07:27 [email or web address]) Nocturnal Pulse Oximetry Equipment Usage Equipment Discontinued Continuous SpO2 Machine # 5 Intake & Output 06/06/19 06/07/19 06/08/19 06:59 06:59 06:59 Intake Total 1244 1198 382 Output Total 3085 1540 165 Balance -1841 -342 217 Weight 111.2 kg 109.1 kg 109.1 kg Exam: General appearance: PRESENT: obese Head exam: PRESENT: atraumatic, normocephalic Eye exam: PRESENT: EOMI, PERRLA. ABSENT: scleral icterus Mouth exam: PRESENT: moist, neck supple Neck exam: ABSENT: tenderness, thyromegaly, tracheal deviation Respiratory exam: PRESENT: tachypnea - severe, other - decreased BS on right, coarse BS on left. Small caliber posterior chest tube in place. No air leak, Serous output present in Chest tube. Cardiovascular exam: PRESENT: tachycardia GI/Abdominal exam: PRESENT: soft. ABSENT: distended, guarding, tenderness Extremities exam: ABSENT: clubbing Musculoskeletal exam: ABSENT: deformity Neurological exam: Intubated and sedated Psychiatric exam: Intubated and sedated Focused psych exam: Intubated and sedated Skin exam: ABSENT: erythema, jaundice Results Laboratory Results: 06/07/19 05:54 06/07/19 05:54 06/07/19 06/07/19 06/07/19 05:54 05:54 09:31 WBC 26.8 H RBC 2.88 L Hgb 8.6 L Hct 27.1 L MCV 94 MCH 29.7 MCHC 31.6 L RDW 15.8 H Plt Count 90 L Seg Neutrophils % Not Reportable Carbonic Acid 0.87 L HCO3/H2CO3 Ratio 18:1 ABG pH 7.36 ABG pCO2 28.9 L ABG pO2 63.6 L ABG HCO3 16.1 L ABG O2 Saturation 92.0 L ABG Base Excess -8.2 FiO2 25% Sodium 141.5 Potassium 3.5 L Chloride 109 H Carbon Dioxide 19 L Anion Gap 14 BUN 26 H Creatinine 0.86 Est GFR ( Amer) > 60 Glucose 215 H Lactic Acid Calcium 9.4 Total Bilirubin 0.9 AST 38 H Alkaline Phosphatase 163 H Ammonia Total Protein 5.4 L Albumin 2.5 L Urine Color Urine Appearance Urine pH Ur Specific [place] Urine Protein Urine Glucose (UA) Urine Ketones Urine Blood Urine Nitrite Ur Leukocyte Esterase Urine WBC (Auto) Urine RBC (Auto) 06/07/19 06/07/19 06/07/19 16:40 16:40 16:40 WBC RBC Hgb Hct MCV MCH MCHC RDW Plt Count Seg Neutrophils % Carbonic Acid HCO3/H2CO3 Ratio ABG pH ABG pCO2 ABG pO2 ABG HCO3 ABG O2 Saturation ABG Base Excess FiO2 Sodium Potassium Chloride Carbon Dioxide Anion Gap BUN Creatinine Est GFR ( Amer) Glucose Lactic Acid 2.2 H Calcium Total Bilirubin AST Alkaline Phosphatase Ammonia 17.7 Total Protein Albumin Urine Color YELLOW Urine Appearance CLOUDY Urine pH 5.0 Ur Specific [place] 1.015 Urine Protein 100 H Urine Glucose (UA) NEGATIVE Urine Ketones TRACE H Urine Blood SMALL H Urine Nitrite NEGATIVE Ur Leukocyte Esterase TRACE H Urine WBC (Auto) 27 Urine RBC (Auto) 37 06/07/19 16:40 WBC RBC Hgb Hct MCV MCH MCHC RDW Plt Count Seg Neutrophils % Carbonic Acid 0.83 L HCO3/H2CO3 Ratio 17:1 ABG pH 7.34 L ABG pCO2 27.7 L ABG pO2 68.2 L ABG HCO3 14.7 L ABG O2 Saturation 93.0 L ABG Base Excess -9.8 FiO2 40 Sodium Potassium Chloride Carbon Dioxide Anion Gap BUN Creatinine Est GFR ( Amer) Glucose Lactic Acid Calcium Total Bilirubin AST Alkaline Phosphatase Ammonia Total Protein Albumin Urine Color Urine Appearance Urine pH Ur Specific [place] Urine Protein Urine Glucose (UA) Urine Ketones Urine Blood Urine Nitrite Ur Leukocyte Esterase Urine WBC (Auto) Urine RBC (Auto) 05/08/19 05/15/19 05/29/19 12:26 17:15 23:24 Creatine Kinase 70 CK-MB (CK-2) 3.60 Troponin I 0.084 NT-Pro-B Natriuret Pep 594 H 05/30/19 05/30/19 06/05/19 08:15 08:15 05:15 Creatine Kinase 22 L CK-MB (CK-2) 3.64 Troponin I 0.092 NT-Pro-B Natriuret Pep 1400 H Impressions: Thyroid Ultrasound 05/16/19 08:00 IMPRESSION: Multinodular goiter as detailed above. Within the left lobe of thyroid gland there is a TR 3 nodule that measures approximately 1.5 cm. Thoracentesis Ultrasound 05/17/19 08:00 IMPRESSION: Successful ultrasound-guided placement of a 10 Burkin[place] all-purpose drainage catheter into the fluid-filled right pleural space. Thoracentesis 05/20/19 00:00 IMPRESSION: SUCCESSFUL PLACEMENT OF A RIGHT SIDED CHEST TUBE USING CT GUIDANCE. Head CT 05/31/19 00:00 IMPRESSION: No acute intracranial abnormality. EVIDENCE OF ACUTE STROKE: NO. Chest CT 06/07/19 00:00 IMPRESSION: Increased size of a loculated right-sided hydropneumothorax with unchanged positioning of a posterior approach pleural catheter. Progressive right upper lobe volume loss and persistent right middle/ lower lobe collapse. Increased left lung patchy and ground-glass airspace opacities concerning for worsening infectious process/pulmonary edema. Chest X-Ray 06/07/19 06:00 IMPRESSION: Unchanged dense opacification of the right hemithorax, likely combination of pleural effusion and atelectasis/airspace disease. Stable small bore right-sided chest tube. Patchy left basilar opacities possibly atelectasis or infection. Assessment & Plan - Diagnosis (1) Malignant pleural effusion Is this a current diagnosis for this admission?: Yes - Time Time Spent with patient: Less than 15 minutes - Plan Summary Plan Summary: This is a 64-year-old female with a malignant pleural effusion and pleuro- cutaneous fistula. She is status post chemical pleurodesis. The pleurodesis appears to have been ineffective. Today, her chest tube is draining serous fluid. She had approximately 100cc of serousanguinous output from the chest tube yesterday. I flushed and aspirated the chest tube again today and it returned minimal serosanguinous fluid. She appears to have persistence of her pleural effusion despite maximal therapy. At this time hospice would be the most appropriate course of action. The family is still resistant to this. Continue the chest tube suction at 25 cm of water. Continue supportive care.
[2019-06-08] MEDS ORDERED: DEXTROSE 50%-WATER 25 GM/50 ML DISP.SYRIN IV PRN ×2 (00:16)
[2019-06-08] MEDS ORDERED: DEXTROSE 40% GEL 15 GM TUBE PO PRN ×2 (00:16)
[2019-06-08] MEDS ORDERED: GLUCAGON,HUMAN RECOMB 1 MG INJ IM PRN (00:16)
[2019-06-08] MEDS ORDERED: ALBUMIN HUMAN 500 ML IV ONE ×2 (00:18→00:35)
[2019-06-08] MEDS ORDERED: INSULIN REG, HUMAN 100 UNIT/ML 3 ML VIAL (PYX) ONE (00:52)
[2019-06-08] MEDS: NORMAL SALINE 100 ML with INSULIN REGULAR, HUMAN 100 UNIT IV PRN ×4 (01:04→14:11)
[2019-06-08] MEDS: MEROPENEM 1 GM in NORMAL SALINE 50 ML IV SCH ×3 (01:55→19:00)
[2019-06-08] MEDS: HYDROCORTISONE SOD SUCCINATE INJ/PF 100 MG/2 ML SDV IV SCH ×4 (01:56→18:58)
[2019-06-08] MEDS: PROPOFOL 1,000 MG/100 ML INFUS..BTL IV PRN ×5 (02:43→20:52)
[2019-06-08] MEDS ORDERED: RINGERS SOLUTION,LACTATED 250 ML IV ONE (04:00)
[2019-06-08 04:07] LABS: ARTERIAL BLOOD BASE EXCESS -11.7 mmol/L; ARTERIAL BLOOD H2CO3 0.65 mmol/L (1.05-1.35); ARTERIAL BLOOD HCO3 12.5 mmol/L (20-24); ARTERIAL BLOOD O2 SATURATION 98.7 % (94-98); ARTERIAL BLOOD PCO2 21.7 mmHg (35-45); ARTERIAL BLOOD PH 7.38 (7.35-7.45); ARTERIAL BLOOD PO2 133.1 mmHg (80-100); ARTERIAL BLOOD TOTAL CO2 13.1 mmol/L (21-25)
[2019-06-08 04:09] LABS: ARTERIAL BLOOD FIO2 40%
[2019-06-08 04:13] LABS: ANION GAP 13 (5-19); BLOOD UREA NITROGEN 35 mg/dL (7-20); CALCIUM 9.2 mg/dL (8.4-10.2); CARBON DIOXIDE 18 mmol/L (22-30); CHLORIDE 110 mmol/L (98-107); GLUCOSE 262 mg/dL (75-110); PHOSPHORUS 3.9 mg/dL (2.5-4.5); POTASSIUM 3.6 mmol/L (3.6-5.0); TRIGLYCERIDES 157 mg/dL (<150)
[2019-06-08 04:15] LABS: MEAN CORPUSCULAR HEMOGLOBIN 29.5 pg (27.0-33.4); MEAN CORPUSCULAR HGB CONC 31.7 g/dL (32.0-36.0); MEAN CORPUSCULAR VOLUME 93 fl (80-97); RED BLOOD COUNT 2.37 10^6/uL (3.72-5.28); RED CELL DISTRIBUTION WIDTH 15.8 % (11.5-14.0); WHITE BLOOD COUNT 23.7 10^3/uL (4.0-10.5)
[2019-06-08 04:19] LABS: PLATELET COUNT 39 10^3/uL (150-450)
[2019-06-08 04:39] LABS: ABSOLUTE LYMPHOCYTES# (MANUAL) 1.2 10^3/uL (0.5-4.7); ABSOLUTE MONOCYTES # (MANUAL) 0.5 10^3/uL (0.1-1.4); BAND NEUTROPHILS % (MANUAL) 2 % (3-5); BASOPHILS % (MANUAL) 0 % (0-2); EOSINOPHILS % (MANUAL) 0 % (0-6); LYMPHOCYTES % (MANUAL) 5 % (13-45); MONOCYTES % (MANUAL) 2 % (3-13); NUCLEATED RED BLOOD CELLS 1 /100 WBC (0); SEGMENTED NEUTROPHILS % (MAN) 91 % (42-78); TOTAL CELLS COUNTED 100
[2019-06-08 04:41] LABS: ANISOCYTOSIS 1+; PLATELET COMMENT DECREASED; POLYCHROMASIA 1+; TOXIC VACUOLATION PRESENT
[2019-06-08] MEDS: ALBUMIN HUMAN 12.5 GM/50 ML RTUINJ IV SCH ×2 (04:55→05:39)
[2019-06-08] MEDS: DEXTROSE 5%-WATER 250 ML with NOREPINEPHRINE BITARTRATE 4 MG IV PRN ×4 (04:58→12:40)
[2019-06-08] MEDS: LINEZOLID 600 MG/300 ML RTUPB IV SCH ×2 (05:39→18:57)
--- NOTE | 2019-06-08 07:53 | PDOC PROGRESS REPORT ---
Subjective Progress Note for:: 06/08/19 Subjective:: Patient is now in the ICU, on ventilator, sedated. Family is not at bedside, but patient was discussed at length with attending ultrasound technician physician. Although she is currently stable, without improvement in her lung function, she is not expected to survive much longer. Although every attempt is being made to improve her situation, the cancer is progressing rapidly. We still have not been able to obtain the oral targeted cancer therapy that has been ordered. Reason For Visit: RIGHT KNEE PAIN Physical Exam Vital Signs: Temp Pulse Resp BP Pulse Ox 98.2 F 92 22 H 103/51 L 96 06/08/19 04:00 06/08/19 05:10 06/08/19 06:04 06/08/19 06:04 06/08/19 06:04 Pulse Oximeter Continuous Start: 06/05/19 10:16 Freq: RTQ4 Status: Complete Protocol: Document 06/07/19 12:00 [facility] (Rec: 06/07/19 12:03 [email or web address]) Pulse Oximetry Assessment Oxygen Saturation (92-100) 97 Oxygen Delivery Method AVAP Fraction of Inspired Oxygen (FIO2) 25 Equipment Usage Equipment in Use Continuous SpO2 Machine # 2 Pulse Oximeter Nocturnal Start: 05/14/19 1 3:35 Freq: RTQ4 Status: Complete Protocol: Document 05/15/19 07:26 [facility] (Rec: 05/15/19 07:27 [email or web address]) Nocturnal Pulse Oximetry Equipment Usage Equipment Discontinued Continuous SpO2 Machine # 5 Intake & Output 06/07/19 06/08/19 06/09/19 06:59 06:59 06:59 Intake Total 1198 1295 Output Total 1540 725 Balance -342 570 Weight 109.1 kg 113.5 kg General appearance: PRESENT: obese Head exam: PRESENT: normocephalic Mouth exam: PRESENT: other - ET tube in place Throat exam: PRESENT: other - ET tube in place Neck exam: ABSENT: lymphadenopathy Respiratory exam: PRESENT: clear to auscultation shivam, other - On ventilator Cardiovascular exam: PRESENT: RRR, tachycardia GI/Abdominal exam: PRESENT: hypoactive bowel sounds, soft Extremities exam: PRESENT: +2 edema Neurological exam: PRESENT: other - sedated and appears peaceful. Skin exam: PRESENT: normal color Results Laboratory Results: 06/08/19 04:05 06/08/19 03:35 06/07/19 06/07/19 06/07/19 09:31 16:40 16:40 WBC RBC Hgb Hct MCV MCH MCHC RDW Plt Count Seg Neutrophils % Carbonic Acid 0.87 L HCO3/H2CO3 Ratio 18:1 ABG pH 7.36 ABG pCO2 28.9 L ABG pO2 63.6 L ABG HCO3 16.1 L ABG O2 Saturation 92.0 L ABG Base Excess -8.2 FiO2 25% Sodium Potassium Chloride Carbon Dioxide Anion Gap BUN Creatinine Est GFR ( Amer) Glucose Lactic Acid Calcium Phosphorus Magnesium Ammonia 17.7 Triglycerides Urine Color YELLOW Urine Appearance CLOUDY Urine pH 5.0 Ur Specific [place] 1.015 Urine Protein 100 H Urine Glucose (UA) NEGATIVE Urine Ketones TRACE H Urine Blood SMALL H Urine Nitrite NEGATIVE Ur Leukocyte Esterase TRACE H Urine WBC (Auto) 27 Urine RBC (Auto) 37 06/07/19 06/07/19 06/08/19 16:40 16:40 03:35 WBC RBC Hgb Hct MCV MCH MCHC RDW Plt Count Seg Neutrophils % Carbonic Acid 0.83 L HCO3/H2CO3 Ratio 17:1 ABG pH 7.34 L ABG pCO2 27.7 L ABG pO2 68.2 L ABG HCO3 14.7 L ABG O2 Saturation 93.0 L ABG Base Excess -9.8 FiO2 40 Sodium 140.6 Potassium 3.6 Chloride 110 H Carbon Dioxide 18 L Anion Gap 13 BUN 35 H Creatinine 1.04 Est GFR ( Amer) > 60 Glucose 262 H Lactic Acid 2.2 H Calcium 9.2 Phosphorus 3.9 Magnesium 2.0 Ammonia Triglycerides 157 H Urine Color Urine Appearance Urine pH Ur Specific [place] Urine Protein Urine Glucose (UA) Urine Ketones Urine Blood Urine Nitrite Ur Leukocyte Esterase Urine WBC (Auto) Urine RBC (Auto) 06/08/19 06/08/19 06/08/19 03:35 03:35 03:35 WBC Cancelled RBC Cancelled Hgb Cancelled Hct Cancelled MCV Cancelled MCH Cancelled MCHC Cancelled RDW Cancelled Plt Count Cancelled Seg Neutrophils % Cancelled Carbonic Acid 0.65 L HCO3/H2CO3 Ratio 19:1 ABG pH 7.38 ABG pCO2 21.7 L ABG pO2 133.1 H ABG HCO3 12.5 L ABG O2 Saturation 98.7 H ABG Base Excess -11.7 FiO2 40% Sodium Potassium Chloride Carbon Dioxide Anion Gap BUN Creatinine Est GFR ( Amer) Glucose Lactic Acid 1.6 Calcium Phosphorus Magnesium Ammonia Triglycerides Urine Color Urine Appearance Urine pH Ur Specific [place] Urine Protein Urine Glucose (UA) Urine Ketones Urine Blood Urine Nitrite Ur Leukocyte Esterase Urine WBC (Auto) Urine RBC (Auto) 06/08/19 04:05 WBC 23.7 H RBC 2.37 L Hgb 7.0 L Hct 22.0 L MCV 93 MCH 29.5 MCHC 31.7 L RDW 15.8 H Plt Count 39 L Seg Neutrophils % Not Reportable Carbonic Acid HCO3/H2CO3 Ratio ABG pH ABG pCO2 ABG pO2 ABG HCO3 ABG O2 Saturation ABG Base Excess FiO2 Sodium Potassium Chloride Carbon Dioxide Anion Gap BUN Creatinine Est GFR ( Amer) Glucose Lactic Acid Calcium Phosphorus Magnesium Ammonia Triglycerides Urine Color Urine Appearance Urine pH Ur Specific [place] Urine Protein Urine Glucose (UA) Urine Ketones Urine Blood Urine Nitrite Ur Leukocyte Esterase Urine WBC (Auto) Urine RBC (Auto) 05/08/19 05/15/19 05/29/19 12:26 17:15 23:24 Creatine Kinase 70 CK-MB (CK-2) 3.60 Troponin I 0.084 NT-Pro-B Natriuret Pep 594 H 05/30/19 05/30/19 06/05/19 08:15 08:15 05:15 Creatine Kinase 22 L CK-MB (CK-2) 3.64 Troponin I 0.092 NT-Pro-B Natriuret Pep 1400 H Impressions: Thyroid Ultrasound 05/16/19 08:00 IMPRESSION: Multinodular goiter as detailed above. Within the left lobe of thyroid gland there is a TR 3 nodule that measures approximately 1.5 cm. Thoracentesis Ultrasound 05/17/19 08:00 IMPRESSION: Successful ultrasound-guided placement of a 10 [place]h all-purpose drainage catheter into the fluid-filled right pleural space. Thoracentesis 05/20/19 00:00 IMPRESSION: SUCCESSFUL PLACEMENT OF A RIGHT SIDED CHEST TUBE USING CT GUIDANCE. Head CT 05/31/19 00:00 IMPRESSION: No acute intracranial abnormality. EVIDENCE OF ACUTE STROKE: NO. Chest CT 06/07/19 00:00 IMPRESSION: Increased size of a loculated right-sided hydropneumothorax with u nchanged positioning of a posterior approach pleural catheter. Progressive right upper lobe volume loss and persistent right middle/ lower lobe collapse. Increased left lung patchy and ground-glass airspace opacities concerning for worsening infectious process/pulmonary edema. Chest X-Ray 06/07/19 06:00 IMPRESSION: Unchanged dense opacification of the right hemithorax, likely combination of pleural effusion and atelectasis/airspace disease. Stable small bore right-sided chest tube. Patchy left basilar opacities possibly atelectasis or infection. Assessment & Plan - Diagnosis (1) Lung cancer Qualifiers: Laterality: right Lung location: lower lobe of lung Qualified Code(s): C34.31 - Malignant neoplasm of lower lobe, right bronchus or lung Is this a current diagnosis for this admission?: Yes Plan: Await targeted therapy, which has been ordered. However, we are now trying to determine if this medication can be crushed and given via G-tube. It may take 6-8 week for the medication to have any effect, and she may not be able to survive long enough to see any effect. Family remain hopeful. She remains full code. (2) Acute respiratory failure Qualifiers: Respiratory failure complication: hypoxia and hypercapnia Qualified Code(s): J96.01 - Acute respiratory failure with hypoxia; J96.02 - Acute respiratory failure with hypercapnia Is this a current diagnosis for this admission?: Yes (3) DVT (deep venous thrombosis) Qualifiers: DVT location: lower extremity Affected thrombotic vein of extremity: femoral Chronicity: acute Laterality: right Qualified Code(s): I82.411 - Acute embolism and thrombosis of right femoral vein Is this a current diagnosis for this admission?: Yes Plan: All blood thinners on hold, due to acute bleeding. (4) Morbid obesity Is this a current diagnosis for this admission?: Yes (5) SOLEDAD (acute kidney injury) Is this a current diagnosis for this admission?: Yes (6) Hypercalcemia Is this a current diagnosis for this admission?: Yes - Time Time Spent with patient: 25-34 minutes - Plan Summary Plan Summary: Patient was discussed at length with attending physician.
[2019-06-08 09:20] LABS: HEMATOCRIT 22.3 % (36.0-47.0); MEAN CORPUSCULAR HEMOGLOBIN 29.4 pg (27.0-33.4); MEAN CORPUSCULAR HGB CONC 31.6 g/dL (32.0-36.0); MEAN CORPUSCULAR VOLUME 93 fl (80-97); RED BLOOD COUNT 2.39 10^6/uL (3.72-5.28); RED CELL DISTRIBUTION WIDTH 15.6 % (11.5-14.0); WHITE BLOOD COUNT 23.6 10^3/uL (4.0-10.5)
[2019-06-08] MEDS ORDERED: METOPROLOL SUCCINATE 25 MG TAB.SR.24H PO SCH (10:00)
[2019-06-08 10:03] LABS: PLATELET COUNT 31 10^3/uL (150-450)
[2019-06-08 10:05] LABS: ABSOLUTE LYMPHOCYTES# (MANUAL) 2.6 10^3/uL (0.5-4.7); ABSOLUTE MONOCYTES # (MANUAL) 1.7 10^3/uL (0.1-1.4); ANISOCYTOSIS SLIGHT; BASOPHILS % (MANUAL) 0 % (0-2); EOSINOPHILS % (MANUAL) 0 % (0-6); LYMPHOCYTES % (MANUAL) 11 % (13-45); MONOCYTES % (MANUAL) 7 % (3-13); POLYCHROMASIA SLIGHT; SEGMENTED NEUTROPHILS % (MAN) 82 % (42-78); TOTAL CELLS COUNTED 100; TOXIC GRANULATION SLIGHT
[2019-06-08 10:06] LABS: HYPOCHROMASIA SLIGHT; OVALOCYTES 1+; PLATELET COMMENT DECREASED
[2019-06-08] MEDS: FENTANYL CITRATE INJ/PF 100 MCG/2 ML AMPUL IV PRN ×3 (10:50→18:11)
[2019-06-08] MEDS: FAMOTIDINE 20 MG TABLET PO SCH (12:13)
[2019-06-08] MEDS ORDERED: FENTANYL CITRATE INJ/PF 100 MCG/2 ML AMPUL IV ONE ×2 (13:00→15:15)
[2019-06-08] MEDS: LIDOCAINE 5% (700 MG) TRANSDERMAL ADH..PATCH TP SCH (13:03)
--- NOTE | 2019-06-08 13:50 | RADIOLOGY REPORT (SQ) ---
EXAM DESCRIPTION: VENOUS UNILATERAL UPPER COMPLETED DATE/TIME: 06/08/2019 1:26 pm REASON FOR STUDY: swellling with malignacy. Right arm COMPARISON: None. TECHNIQUE: Dynamic and static ibarra scale and color images acquired of the right arm venous system. S elected spectral images acquired with additional compression and augmentation maneuvers. Images stor ed on PACS. LIMITATIONS: Patient on vent. FINDINGS: There is occlusive thrombus in the cephalic, brachial, axillary, and subclavian veins. IJ is patent. IMPRESSION: Acute DVT as described above. TECHNICAL DOCUMENTATION: JOB ID: [id number] [employer]- All Rights Reserved Reading location - IP/workstation name: [email or web address]
--- NOTE | 2019-06-08 13:52 | RADIOLOGY REPORT (SQ) ---
EXAM DESCRIPTION: VENOUS BILATERAL LOWER COMPLETED DATE/TIME: 06/08/2019 1:26 pm REASON FOR STUDY: swelling with malignancy COMPARISON: None. TECHNIQUE: Dynamic and static ibarra scale and color images acquired of both lower extremity venous sy stems. Selected spectral images acquired with additional compression and augmentation maneuvers. Imag es stored on PACS. LIMITATIONS: Patient ventilator. Limited mobility. FINDINGS: RIGHT LEG COMMON FEMORAL AND FEMORAL: Nonocclusive thrombus distal femoral vein. POPLITEAL: Nonocclusive thrombus. CALF VESSELS: Not well visualized. GSV AND SSV: Normal compression. No visualized echogenic material on ibarra scale. No defects on color images. ANY DEEP VENOUS INSUFFICIENCY: Not evaluated. ANY EVIDENCE OF POPLITEAL CYST: No. OTHER: No other significant finding. LEFT LEG COMMON FEMORAL AND FEMORAL: Normal phasicity, compression and augmentation. No visualized echogenic m aterial on ibarra scale. No defects on color images. POPLITEAL: Normal compression and augmentation. No visualized echogenic material on ibarra scale. No de fects on color images. CALF VESSELS: Normal compression and augmentation. No visualized echogenic material on ibarra scale. No defects on color images. GSV AND SSV: Normal compression. No visualized echogenic material on ibarra scale. No defects on color images. ANY DEEP VENOUS INSUFFICIENCY: Not evaluated. ANY EVIDENCE POPLITEAL CYST: No. OTHER: No other significant finding. IMPRESSION: Positive DVT right popliteal and femoral veins. TECHNICAL DOCUMENTATION: JOB ID: [id number] [employer]- All Rights Reserved Reading location - IP/workstation name: [email or web address]
[2019-06-08] MEDS ORDERED: NORMAL SALINE 250 ML IV PRN ×2 (15:17)
[2019-06-08] MEDS ORDERED: VANCOMYCIN HCL 0 MG in DEXTROSE 5%-WATER 250 ML IV NR (15:30)
--- NOTE | 2019-06-08 18:37 | Operative Report ---
Bedside Procedure - History of Present Illness History of Present Illness: VLADIMIR LUCERO is a 64 year old female with a diagnosis of metastatic adenocarcinoma of the lung. She presented with increasing shortness of breath has effusion in the right hemithorax. Currently has a chest tube is draining intermittently. She is on BiPAP with worsening respiratory distress. Has significant respiratory failure. Required mechanical ventilation after transfer to ICU. Procedure Preop diagnosis: Hypoxic Respiratory Failure, atelectasis, Pneumonia Postop diagnosis: Same, with bleeding in RML Procedure: Bedside bronchoscopy Proceduralist: Divya FUENTES [facility] Motorcycle Maker: Bedside nursing staff Complications: None Estimated blood loss: None from procedure Anesthesia: Conscious sedation on ventilator with continuous hemodynamic monitoring Consent: Obtained from Procedure: Patient was appropriate identified secondary to ongoing critical care, chart check name joe. Time out was done. Available equipment was immediately at bedside. Patient has a recent history of metastatic lung cancer with effusions of right chest. Intubated for respiratory failure. The ventilator settings were changed to allow for procedure including placement on 100%. With an already present ET tube the disposable flexible bronchoscope was placed through a swivel port. Was blood noted emanating from the right mainstem bronchus. This is the area that was evaluated and noted to be coming from the right middle lobe. Significant blood emanating from the medial aspect. Because of her low platelets careful and judicial lavage was done with minimal suctioning. Right upper lobe was interrogated as well there was marked compression and BAL was done. Lower lobe segments were evaluated and is much as could be done with the confines of the ET tube. Given the amount of disease in the right middle lobe limited time was spent there to prevent any further bleeding. The left lung was interrogated briefly. There were no significant findings other than overflow accretions and some inspissated secretions which were suctioned quickly. No bleeding caused by the bronchoscope. Patient tolerated procedure well there were no complications. Indication for Procedure: Respiratory faillure, pneumonia Date: 06/07/19 Provider: LAM CHAVES
--- NOTE | 2019-06-08 19:04 | PDOC CRITICAL CARE PROG REPORT ---
General Date:: 06/08/19 ICU Day:: 2 Ventilator Day:: 2 Hospital Day:: 2 Resuscitation Status: Full Code Medical Power of Straight Knife Cutter Machine: Events in the past 12 to 24 Hours:: Patient was admitted to the ICU yesterday after worsening respiratory failure. She was immediately intubated. Removal of the right central line was done after intubation and placement of a right radial arterial catheter was done. Patient's hypoxia has improved and she is on 40% FiO2. There is been no elevation in her peak or plateau pressures on current vent settings. Review of systems relevant to events:: The patient's back and chest tube site were evaluated. There was exudative mate rial in the dressing slightly malodorous. Interventional radiology was consulted for replacement of the tube pending platelet therapy. She has early cyanosis of the right hand with swelling of the right arm. A DVT screen was done which was positive for occlusive thrombus of the brachiocephalic axillary and subclavian vein. Internal jugular was patent. She has a DVT in the right lower extremity as well. She is responsive and has required sedation. She also has been in pain and is received narcotic for this. We were informed today that her aerobic and anaerobic cultures from blood are positive for gram-positive organisms. As of the depth of cancer involvement of the lung with possible postobstructive pneumonia she was placed on Linezolid and then started on IV vancomycin for bacteremia. She underwent flexible bronchoscopy showed extensive compression from tumor and bleeding from the right middle lobe bronchus. It looks have been ordered but unfortunately are being delivered from [place]. Reason for ICU Addmission:: Increased WOB, acute respiratory faiure, Lung cancer. Hypercalcemia - Medications: Vasopressors:: Levophed Sedation:: Propofol and Fentanyl prn Physical Exam Vital Signs: Temp Pulse Resp BP Pulse Ox 98.8 F 88 26 H 131/68 H 100 06/08/19 16:00 06/08/19 16:00 06/08/19 18:00 06/08/19 17:59 06/08/19 18:00 Pulse Oximeter Continuous Start: 06/05/19 10: 16 Freq: RTQ4 Status: Complete Protocol: Document 06/07/19 12:00 [facility] (Rec: 06/07/19 12:03 [facility] [id number]) Pulse Oximetry Assessment Oxygen Saturation (92-100) 97 Oxygen Delivery Method AVAP Fraction of Inspired Oxygen (FIO2) 25 Equipment Usage Equipment in Use Continuous SpO2 Machine # 2 Pulse Oximeter Nocturnal Start: 05/14/19 13:35 Freq: RTQ4 Status: Complete Protocol: Document 05/15/19 07:26 [facility] (Rec: 05/15/19 07:27 [facility] [id number]) Nocturnal Pulse Oximetry Equipment Usage Equipment Discontinued Continuous SpO2 Machine # 5 Intake & Output 06/07/19 06/08/19 06/09/19 06:59 06:59 06:59 Intake Total 1198 1295 936 Output Total 1540 725 225 Balance -342 570 711 Weight 109.1 kg 113.5 kg 113.5 kg Weight/Height Weight 113.5 kg Height 5 ft 10 in General appearance: PRESENT: morbidly obese Exam: Intubated, ill, obese, non-toxic, NAD. Responsive Head exam: PRESENT: atraumatic, normocephalic Eye exam: PRESENT: conjunctival injection, conjunctiva pink, PERRLA. ABSENT: nystagmus, scleral icterus Neck exam: ABSENT: tracheal deviation Respiratory exam: PRESENT: crackles, decreased breath sounds, rhonchi, tach ypnea. ABSENT: accessory muscle use Cardiovascular exam: PRESENT: RRR, rubs, +S2 GI/Abdominal exam: PRESENT: normal bowel sounds, soft. ABSENT: ascites, distended, guarding, mass, organolmegaly, rebound, tenderness Rectal exam: PRESENT: deferred Gentrourinary exam: PRESENT: indwelling catheter Extremities exam: PRESENT: pedal edema, +2 edema, other - Right arm swelling. Early cyanosis of right hand digits. Arterial catheter present--removed Musculoskeletal exam: ABSENT: deformity, dislocation Neurological exam: PRESENT: altered - Sedated. Responds to voice Psychiatric exam: PRESENT: appropriate affect Focused psych exam: ABSENT: psychomotor agitation, restlessness Skin exam: ABSENT: erythema, mottled, petechiae Tubes/Lines: PRESENT: Endotracheal Tube, Chest Tube, Central Line, Arterial Catheter - Removed, Other - OGT, fowler Laboratory/Radiographs Laboratory Results: 06/08/19 08:52 06/08/19 03:35 06/08/19 06/08/19 06/08/19 03:35 03:35 03:35 WBC Cancelled RBC Cancelled Hgb Cancelled Hct Cancelled MCV Cancelled MCH Cancelled MCHC Cancelled RDW Cancelled Plt Count Cancelled Seg Neutrophils % Cancelled Carbonic Acid 0.65 L HCO3/H2CO3 Ratio 19:1 ABG pH 7.38 ABG pCO2 21.7 L ABG pO2 133.1 H ABG HCO3 12.5 L ABG O2 Saturation 98.7 H ABG Base Excess -11.7 FiO2 40% Sodium 140.6 Potassium 3.6 Chloride 110 H Carbon Dioxide 18 L Anion Gap 13 BUN 35 H Creatinine 1.04 Est GFR ( Amer) > 60 Glucose 262 H Lactic Acid Calcium 9.2 Phosphorus 3.9 Magnesium 2.0 Triglycerides 157 H Fluid Type Fluid Source Fluid Color Fluid Appearance Fluid Viscosity Fluid WBC Fluid RBC Blood Type 06/08/19 06/08/19 06/08/19 03:35 04:05 08:52 WBC 23.7 H 23.6 H RBC 2.37 L 2.39 L Hgb 7.0 L 7.0 L Hct 22.0 L 22.3 L MCV 93 93 MCH 29.5 29.4 MCHC 31.7 L 31.6 L RDW 15.8 H 15.6 H Plt Count 39 L 31 L Seg Neutrophils % Not Reportable Not Reportable Carbonic Acid HCO3/H2CO3 Ratio ABG pH ABG pCO2 ABG pO2 ABG HCO3 ABG O2 Saturation ABG Base Excess FiO2 Sodium Potassium Chloride Carbon Dioxide Anion Gap BUN Creatinine Est GFR ( Amer) Glucose Lactic Acid 1.6 Calcium Phosphorus Magnesium Triglycerides Fluid Type Fluid Source Fluid Color Fluid Appearance Fluid Viscosity Fluid WBC Fluid RBC Blood Type 06/08/19 06/08/19 16:00 16:15 WBC RBC Hgb Hct MCV MCH MCHC RDW Plt Count Seg Neutrophils % Carbonic Acid HCO3/H2CO3 Ratio ABG pH ABG pCO2 ABG pO2 ABG HCO3 ABG O2 Saturation ABG Base Excess FiO2 Sodium Potassium Chloride Carbon Dioxide Anion Gap BUN Creatinine Est GFR ( Amer) Glucose Lactic Acid Calcium Phosphorus Magnesium Triglycerides Fluid Type Cancelled Fluid Source Cancelled Fluid Color Cancelled Fluid Appearance Cancelled Fluid Viscosity Cancelled Fluid WBC Cancelled Fluid RBC Cancelled Blood Type B POSITIVE 05/08/19 05/15/19 05/29/19 12:26 17:15 23:24 Creatine Kinase 70 CK-MB (CK-2) 3.60 Troponin I 0.084 NT-Pro-B Natriuret Pep 594 H 05/30/19 05/30/19 06/05/19 08:15 08:15 05:15 Creatine Kinase 22 L CK-MB (CK-2) 3.64 Troponin I 0.092 NT-Pro-B Natriuret Pep 1400 H Impressions: Thyroid Ultrasound 05/16/19 08:00 IMPRESSION: Multinodular goiter as detailed above. Within the left lobe of thyroid gland there is a TR 3 nodule that measures approximately 1.5 cm. Thoracentesis Ultrasound 05/17/19 08:00 IMPRESSION: Successful ultrasound-guided placement of a 10 [place]ese all-purpose drainage catheter into the fluid-filled right pleural space. Thoracentesis 05/20/19 00:00 IMPRESSION: SUCCESSFUL PLACEMENT OF A RIGHT SIDED CHEST TUBE USING CT GUIDANCE. Head CT 05/31/19 00:00 IMPRESSION: No acute intracranial abnormality. EVIDENCE OF ACUTE STROKE: NO. Chest CT 06/07/19 00:00 IMPRESSION: Increased size of a loculated right-sided hydropneumothorax with unchanged positioning of a posterior approach pleural catheter. Progressive right upper lobe volume loss and persistent right middle/ lower lobe collapse. Increased left lung patchy and ground-glass airspace opacities concerning for worsening infectious process/pulmonary edema. Chest X-Ray 06/07/19 06:00 IMPRESSION: Unchanged dense opacification of the right hemithorax, likely combination of pleural effusion and atelectasis/airspace disease. Stable small bore right-sided chest tube. Patchy left basilar opacities possibly atelectasis or infection. Venous Doppler Study 06/08/19 00:00 IMPRESSION: Positive DVT right popliteal and femoral veins. All labs, radiographs, diagnostic studies and EKGs were personally reviewed: Yes In addition, reports of radiographic and diagnostic studies were read: Yes Assessment and Plan - Diagnosis (1) Sepsis with organ dysfunction Is this a current diagnosis for this admission?: Yes (2) Hemoptysis Is this a current diagnosis for this admission?: Yes (3) Acute respiratory failure with hypoxia Is this a current diagnosis for this admission?: Yes (4) Hypotension (arterial) Qualifiers: Hypotension type: other hypotension type Qualified Code(s): I95.89 - Other hypotension Is this a current diagnosis for this admission?: Yes (5) Malignant pleural effusion Is this a current diagnosis for this admission?: Yes (6) Adenocarcinoma of lung, stage 4 Qualifiers: Laterality: right Qualified Code(s): C34.91 - Malignant neoplasm of unspecified part of right bronchus or lung Is this a current diagnosis for this admission?: Yes (7) Pericardial effusion without cardiac tamponade Is this a current diagnosis for this admission?: Yes (8) Morbid exogenous obesity Is this a current diagnosis for this admission?: Yes (9) DVT of upper extremity (deep vein thrombosis) Qualifiers: Affected thrombotic vein of extremity: axillary Chronicity: acute Laterality: right Qualified Code(s): I82.A11 - Acute embolism and thrombosis of right axillary vein Is this a current diagnosis for this admission?: Yes (10) Deep vein thrombosis (DVT) of right lower extremity Qualifiers: Affected thrombotic vein of extremity: popliteal Chronicity: acute Qualified Code(s): I82.431 - Acute embolism and thrombosis of right popliteal vein Is this a current diagnosis for this admission?: Yes (11) Thrombocytopenia Is this a current diagnosis for this admission?: Yes (12) Gram-positive cocci bacteremia Is this a current diagnosis for this admission?: Yes Plan Summary: 06.08.19: Several significant factors are ongoing which will require a higher level of tertiary care. During multidisciplinary rounds we discussed the patient's situation and the family still would want to pursue aggressive care. I did asked them to please consider a DNR status given the severity of her illness and the known complications. Oncology would like to start T[place]ailaa have ordered EKG to evaluate QTc interval. It has significant black box warnings and is mainly used in leukemia however it has been used off label for this particular type of Cancer. She now has diffuse thrombotic disease of the right upper extremity and the right lower extremity. He has gram-positive bacteremia. Old central lines were removed and new one was placed yesterday. He has foul-smelling discharge from the thoracentesis site placed on broad- spectrum antibiotics to cover the bacteremia and the possible postobstructive pneumonia. We have chosen linezolid for its lung penetration and vancomycin for the bacteremia. Several competing issues are of note: She has significant blood coming from the right middle lobe bronchus with low platelets and thrombotic disorder. In addition she has thrombocytopenia with a decrease in count more than 50%. 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 Additionally, to give her irritated platelets we have to obtain them from a distance site ([place]) and this is a significant limitation in her care. When her bleeding from the right middle lobe she will require embolization. She will also need an IVC filter if the family chooses this. No doubt her complications and situation is significant but the family has not rescinded their aggressive care status. We are unable to provide for embolization of the lung for bleeding. Her low platelets and the mucosal bleeding a bronchial jerica may induce further bleeding but may be lifesaving if needed. She also need IVC filter. In these limitations I placed a call to [facility] and they willing and have bed availability to accept her. Follow-up items including the above 1. She has early cyanosis of the right hand and the arterial catheter has been removed 2. Gram positive bacteremia on broad-spectrum antibiotics 3. Hemoptysis from right lung with bleeding from the right middle lobe bronchus 4. Post-Obstructive pneumonia 5. Thrombocytopenia concern for HIT She has been accepted to [facility] and we appreciate the staff advised in for their assistance. 18.19:Patient obviously requires ICU admission and was rapidly intubated. Entry line and arterial catheters were placed. Plan is to have bronchoscopy today to determine whether the right lung can be aerated. On chest x-ray there is significant lung volume loss which is been ongoing for a number of days. Obtain CT of chest to rule out loculated effusions. Patient's significant obesity and large pendulous breasts may make it difficult to place a larger chest tube but this may be what is needed and necessary to improve the effusion. Hopefully the CT scan will better identify the anatomy. Had a lengthy discussion with oncology. They are willing to offer an oral chemotherapy agent to determine whether there will be any efficacious results. Unable to give down the OG tube they are considering chemotherapy as salvage. Did discuss with the family that this would be a time-limited trial and we came to an agreement regarding full measures to assist in her care. Patient has had a central venous catheter in since May 22 in the right subclavian region. We will remove this. Check for blood cultures and evidence of infection. Will obtain BAL to rule out postobstructive pneumonia. Awaiting lactic acid and other laboratory parameters. Patient's prognosis and Morrow score are significantly poor and elevated. Family has not designated DNR but this may need to be addressed as her situation unfolds. Patient has a leukocytosis and will try to determine the etiology of this. Do not see any recent use of steroids. Patient had significant hypotension after intubation which improved with volume resuscitation. Basic critical care echo and ultrasound showed complex effusion on the right and an ejection fraction of approximately 60%. There was a mild to moderate pericardial effusion but more formal echo does not show any diastolic collapse on M-mode. We will need to place Fowler we will check urinalysis as well. Critical Time Critical Time (minutes): 90 Level of Care: ICU Anticipated discharge: [facility] Within: Other - Today -: 1. The care of a critical patient is a dynamic process. This note is a representative personal service synopsis but static in nature. The timeframe for treatments given in order is not necessary the actual time these treatments may have been done. 2. This patient requires critical care secondary to ongoing requirements for therapy not offered or safe outside the critical care environment. Transfer to a lower level of care will result in altered life or limb morbidity and mortality. 3. Multidisciplinary rounds completed. 4. ABCDE bundle addressed.
--- NOTE | 2019-06-08 19:11 | PDOC TRANSFER SUMMARY ---
General Admission Date/PCP: 05/12/19 14:45 МАРИНА SPANGLER MD Resuscitation Status: Full Code - Transfer Diagnosis (1) Sepsis with organ dysfunction Is this a current diagnosis for this admission?: Yes (2) Hemoptysis Is this a current diagnosis for this admission?: Yes (3) Acute respiratory failure with hypoxia Is this a current diagnosis for this admission?: Yes (4) Hypotension (arterial) Is this a current diagnosis for this admission?: Yes (5) Malignant pleural effusion Is this a current diagnosis for this admission?: Yes (6) Adenocarcinoma of lung, stage 4 Is this a current diagnosis for this admission?: Yes (7) Pericardial effusion without cardiac tamponade Is this a current diagnosis for this admission?: Yes (8) Morbid exogenous obesity Is this a current diagnosis for this admission?: Yes (9) DVT of upper extremity (deep vein thrombosis) Is this a current diagnosis for this admission?: Yes (10) Deep vein thrombosis (DVT) of right lower extremity Is this a current diagnosis for this admission?: Yes (11) Thrombocytopenia Is this a current diagnosis for this admission?: Yes (12) Gram-positive cocci bacteremia Is this a current diagnosis for this admission?: Yes - Transfer Medications Home Medications: Celecoxib [Celebrex 200 mg Capsule] 200 mg PO Q12 05/08/19 Furosemide [Lasix 40 mg Tablet] 40 mg PO DAILY 05/08/19 Gabapentin [Neurontin] 600 mg PO Q8 05/08/19 Glimepiride [Amaryl 4 mg Tablet] 4 mg PO BID 05/08/19 Linaclotide [Linzess 145 Mcg Capsule] 145 mcg PO DAILY 05/08/19 Metformin HCl [Metformin HCl ER] 1,000 mg PO BIDBS 05/08/19 Oxycodone HCl [Oxy-Ir 5 mg Tablet] 10 mg PO Q8HP PRN 05/08/19 Oxycodone HCl/Acetaminophen [Oxycodone-Acetaminophen 10-325] 1 tab PO Q8HP PRN 05/08/19 Ranitidine HCl [Zantac] 150 mg PO BID 05/08/19 Rivaroxaban [Xarelto] 20 mg PO BID 05/08/19 Valsartan/Hydrochlorothiazide [Valsartan-Hctz 160-12.5 mg Tab] 1 tab PO DAILY 11/18/19 Transfer Medications: Current Medications Bisacodyl (Dulcolax 10 Mg Supp.Rect) 10 mg VA DAILYP PRN PRN Reason: UNRESOLVED CONSTIPATION Stop: 06/12/19 15:34 Dextrose (Dextrose Inj 50% Syringe (25 Gm/50 Ml)) 12.5 gm IV PRN PRN; Protocol PRN Reason: FOR BG 50-69 IN ALERT PATIENT Stop: 07/08/19 00:15 Dextrose (Dextrose Inj 50% Syringe (25 Gm/50 Ml)) 25 gm IV PRN PRN; Protocol PRN Reason: PER PROTOCOL Stop: 07/08/19 00:15 Digoxin (Lanoxin 0.25 Mg Tablet) 0.25 mg PO DAILY [facility] Stop: 06/29/19 09:59 Last Admin: 06/07/19 09:25 Dose: Not Given Documented by: Famotidine (Pepcid 20 Mg Tablet) 20 mg PO Q12 ANGELIA Stop: 06/16/19 10:59 Last Admin: 06/08/19 12:13 Dose: 20 mg Documented by: Fentanyl Citrate (Sublimaze Inj/Pf 100 Mcg/2 Ml Ampule) 50 mcg IV Q4HP PRN PRN Reason: FOR PAIN SCALE 1-3 Stop: 06/14/19 16:52 Last Admin: 06/08/19 18:11 Dose: 50 mcg Documented by: Fentanyl Citrate (Sublimaze Inj/Pf 100 Mcg/2 Ml Ampule) 100 mcg IV Q4HP PRN PRN Reason: FOR PAIN SCALE 4-5 Stop: 06/14/19 16:52 Last Admin: 06/07/19 18:50 Dose: 100 mcg Documented by: Glucagon (Glucagen Inj 1 Mg Vial) 1 mg IM PRN PRN; Protocol PRN Reason: Evaluate for BG < 70 Stop: 07/08/19 00:15 Glucose (Glutose 40% Gel 15 Gm Tube) 15 gm PO PRN PRN; Protocol PRN Reason: FOR BG 50-69 IN ALERT PATIENT Stop: 07/08/19 00:15 Glucose (Glutose 40% Gel 15 Gm Tube) 30 gm PO PRN PRN; Protocol PRN Reason: FOR BG < 50 IN ALERT PATIENT Stop: 07/08/19 00:15 Hydrocortisone Sodium Succinate (Solu-Cortef Inj/Pf 100 Mg/ 2 Ml Sdv) 50 mg IV Q6 [facility] Stop: 07/08/19 11:59 Last Admin: 06/08/19 18:58 Dose: 50 mg Documented by: Propofol (Diprivan Rtu 1000 Mg/100 Ml Inf.Bottle) 1,000 mg in 100 mls @ 3.273 mls/hr IV CONTINUOUS PRN; Protocol PRN Reason: THIS MED IS NOT "PRN" Stop: 07/07/19 14:36 Last Admin: 06/08/19 16:52 Dose: 20 mcg/kg/min, 13.09 mls/hr Documented by: Norepinephrine Bitartrate 4 mg (/ Dextrose) 254 mls @ 0 mls/hr IV CONTINUOUS PRN; Protocol PRN Reason: THIS MED IS NOT "PRN" Stop: 07/07/19 14:36 Last Titration: 06/08/19 15:02 Dose: 7 mcg/min, 26.67 mls/hr Documented by: Linezolid (Zyvox Rtu 600 Mg/300 Ml Premixed) 600 mg in 300 mls @ 300 mls/hr IV Q12A ANGELIA Stop: 06/14/19 17:59 Last Admin: 06/08/19 18:57 Dose: 300 mls/hr, 300 mls/hr Documented by: Meropenem 1 gm/ Sodium (Chloride) 50 mls @ 100 mls/hr IV Q8A ANGELIA Stop: 06/14/19 17:29 Last Admin: 06/08/19 19:00 Dose: 100 mls/hr, 100 mls/hr Documented by: Insulin Human Regular 100 unit (/ Sodium Chloride) 101 mls @ 0 mls/hr IV CONTINUOUS PRN; Protocol PRN Reason: THIS MED IS NOT "PRN" Stop: 07/08/19 00:15 Last Admin: 06/08/19 14:11 Dose: 5 mls/hr, 5 mls/hr Documented by: Sodium Chloride (Nacl 0.9% 250 Ml Iv Soln) 250 mls @ 30 mls/hr IV .DURING TRANSFUSION PRN PRN Reason: THIS MED IS NOT "PRN" Stop: 06/09/19 15:16 Sodium Chloride (Nacl 0.9% 250 Ml Iv Soln) 250 mls @ 0 mls/hr IV CONTINUOUS PRN PRN Reason: AFTER EACH UNIT Stop: 06/09/19 15:16 Vancomycin HCl 1,250 mg/ (Dextrose) 250 mls @ 166.667 mls/hr IV Q12 ANGELIA Stop: 06/15/19 21:59 Levalbuterol HCl (Xopenex Neb 1.25 Mg/3 Ml Ampul) 1.25 mg NEB RTQ6HP PRN PRN Reason: Shortness Of Breath, wheezing Stop: 06/12/19 15:35 Last Admin: 05/31/19 09:18 Dose: 1.25 mg Documented by: Lidocaine (Lidoderm 5% (700 Mg) Transdermal Patch) 2 patch TP DAILY ANGELIA Stop: 06/26/19 09:59 Last Admin: 06/08/19 13:03 Dose: 2 patch Documented by: Metoprolol Succinate (Toprol Xl 25 Mg Tab.Sr) 25 mg PO Q12 ANGELIA Stop: 07/08/19 09:59 Pharmacy Profile Note (Medication Communication Order) 1 each QHS ANGELIA Stop: 07/05/19 21:59 Last Admin: 06/07/19 21:58 Dose: Not Given Documented by: Pharmacy Profile Note (Medication Communication Order) 1 each .NOTICE NR Stop: 07/07/19 14:44 Polyethylene Glycol (Miralax Powder 17 Gm/Packet) 17 gm PO DAILYP PRN PRN Reason: FOR CONSTIPATION Stop: 06/20/19 16:06 Last Admin: 06/04/19 17:09 Dose: 17 gm Documented by: Sodium Chloride (Nacl 0.9% Inj/Pf 10 Ml Sdv) 10 ml IV .AFTER EACH USE PRN PRN Reason: AFTER EACH INTERMITTENT USE Stop: 07/07/19 14:36 - Allergies Allergies/Adverse Reactions: iodine Allergy (Verified 03/25/19 15:37) - Diet/Activity Discharge Diet: As Tolerated, Regular Hospital Course Hospital Course: Patient has had lengthy hospital stay with frequent ICU admissions. Recently admitted to the ICU yesterday for worsening respiratory failure. Required intubation. Bronchoscopy revealed bleeding from right middle lobe. 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 She postobstructive pneumonia with advanced metastatic adenocarcinoma. She had been admitted to the medical floor but developed worsening respiratory failure. The plan was to send her to LTAC for improvement in her deconditioning in preparation to receive [place] ICU course: Patient was admitted to the ICU yesterday after worsening respiratory failure. She was immediately intubated. Removal of the right central line was done after intubation and placement of a right radial arterial catheter was done. Patient's hypoxia has improved and she is on 40% FiO2. There is been no elevation in her peak or plateau pressures on current vent settings. Review of systems relevant to events:: The patient's back and chest tube site were evaluated. There was exudative material in the dressing slightly malodorous. Interventional radiology was consulted for replacement of the tube pending platelet therapy. She has early cyanosis of the right hand with swelling of the right arm. A DVT screen was done which was positive for occlusive thrombus of the brachiocephalic axillary and subclavian vein. Internal jugular was patent. She has a DVT in the right lower extremity as well. She is responsive and has required sedation. She also has been in pain and is received narcotic for this. We were informed today that her aerobic and anaerobic cultures from blood are positive for gram-positive organisms. As of the depth of cancer involvement of the lung with possible postobstructive pneumonia she was placed on Linezolid and then started on IV vancomycin for bacteremia. She underwent flexible bronchoscopy showed extensive compression from tumor and bleeding from the right middle lobe bronchus. It looks have been ordered but unfortunately are being delivered from [place]. Reason for ICU Addmission:: Increased WOB, acute respiratory faiure, Lung cancer. Hypercalcemia Hosptialist and other progress notes: Progress Note for:: 06/07/19 Subjective:: The patient is a 64-year-old female with past medical history of hypertension, DM 2, obesity, lung cancer, and arthritis who was admitted to the orthopedic service. Hospitalist service consulted for tachycardia, SOLEDAD, medication management and subsequently developed acute respiratory failure w/ hypoxia and an accelerated junctional rhythm nonresponsive to adenosine x3 and cardioversion (100, 150, 200J). Ultimately, rate control achieved via amiodarone. Found to have large right sided pleural effusion now s/p chest tube placement and, unfortunately, failed talc pleurodesis. At this time, patient is now AVAPS dependent. Patient was seen on morning rounds with 1 daughter present and again shortly later with multiple family members, Bekah Salmon (ADONIS), and Dr. Mendoza, present. She remains AVAPS dependent, tachypneic with a rate now in the mid 40s, speaking 1-2 word sentences, now with accessory muscle use, grunting, and increased lethargy. She is arousable; A&O to self. She does wake easily when I say her name, but is not able to participate in meaningful conversation today. Now clearly in extremis. ROS is limited secondary to mental status/fatigue. Long discussion had with family members regarding the need for the patient to be upgraded to ICU for imminent intubation and stabilization of her respiratory status. They have many concerns and questions regarding the previous plan to transition to LTAC and initiation of chemotherapy agents; they are informed that prior to making any of those arrangements, first the patient must be stabilized which will require returning to ventilator support. Dr. Mendoza was at bedside to assist with the family conversation. At this time, family requests aggressive interventions; patient remains full code. Spoke with Dr. Stokes who did come to the bedside to evaluate the patient; has agreed to accept her into his service for critical care managment. Summary: 06/01/2019 Had a long discussion this morning with Dr. Nye hematology oncology concerning this patient. Have gone over her entire hospitalization and admission All cultures are negative Patient is receiving daily chest tube aspirations by general surgery Patient has stage IV lung cancer with malignant pleural effusion Per family patient is a full code 06/02/2019 Consult to psychiatry today for her confusion ,agitation, and delirium Patient may need long-term hospital care, discharge planning is approaching the family concerning this Blood cultures and urine cultures are still negative 06/03/2019 Several family members in the room including her today Blood pressure stable ,pulse is running her usual around 120 She has maintained her oxygen saturation in the upper 90s on either nasal cannula or BiPAP Continue daily consultations by general surgery. Discharge planning has started paperwork for long-term admission 06/04/2019 He continues to state that the patient is improving neurologically as well as cognitively. Family states that she is sleeping better at night. They also states she is less confused. Family refused the Depakene sprinkles, stated they did not want her to have the medication. I have DC'd this medicine. Continues to run higher than normal respiration rate anywhere from 24-32 as her baseline Patient also continues to run a higher than normal heart rate though it is coming down's slightly in the 120s now down to the low 100s White count is down to 13,500, renal function appears normal 06/05/2019 Patient's mentation appears to be improving, less confusion, is more oriented to person and place. Unfortunately however patient continues to appear to be struggling with her breathing due to a multitude of factors. It sounds as though patient's pleural effusion is not going to improve significantly even with aggressive treatment Agree based on patient's respiration pattern and observation over the last week, and will probably never be able to come off of supportive breathing treatments. Try to decrease patient's IV fluids and give her some Lasix to see if this offers her any benefit, as she does sound to be a little wet in the left lower lobe. Patient's family is to make a decision concerning long-term care. In light of patient's apparent poor prognosis 06/06/19 WBCs trending up; 13.5-> 16.3-> 20.5. Remains afebrile. All prior cultures are negative. Will hold on additional antibiotics at this time. Hgb is stable; 7.9, though overall trending down from time of admission (Hgb 12.7). Heme/Onc is following. SOLEDAD is resolved. Acute encephalopathy is improved with AVAPS. A&Ox3, though fatigued/repetitive today. Discussed w/ family possible need for intubation (for transfer to LTAC) and subsequent trachostomy; patient likely to remain ventilator dependent. Surgery continues to assist w/ management of Chest Tube; unfortunately, talc pleurodesis has failed. Long discussion had with family members today regarding recommendations for hospice services. Please see separate ACP note from same date. Discharge planning is consulted; making attempts to arrange for transfer to LTAC. Still awaiting chemotherapy agent; hematology/oncology is consulted. 06/07/19 WBCs trending up; 13.5-> 16.3-> 20.5-> 26. Remains afebrile. All prior cultures are negative. ? post obstructive pneumonia. Hgb is stable; 8.6, though overall trending down from time of admission (Hgb 12.7). Heme/Onc is following. SOLEDAD is resolved. Acute encephalopathy is improved with AVAPS; though, worsened today r/t respiratory distress. A&O to self and lethargic. Surgery continues to assist w/ management of Chest Tube; unfortunately, talc pl eurodesis has failed. The patient is in acute respiratory failure with hypoxia; clear extremities with a VATS dependence, tachypnea with respiratory rate in the 40s, 1-2 word sentences, with accessory muscle use and grunting. Reviewed the patient's clinical course with family members; requesting continued aggressive interventions with the ultimate goal of stabilizing the patient for trial of rubin motherapy. Spoke with Dr. Stokes who came to the bedside to provide an assessment; agrees that the patient should be upgraded to the ICU for immediate intubation. Patient is upgraded to the ICU; appreciate Dr. Mendoza's and Dr. Lea's assistance. Physical Exam Vital Signs: Temp Pulse Resp BP Pulse Ox 98.8 F 88 26 H 131/68 H 100 06/08/19 16:00 06/08/19 16:00 06/08/19 18:00 06/08/19 17:59 06/08/19 18:00 Pulse Oximeter Continuous Start: 06/05/19 10:16 Freq: RTQ4 Status: Complete Protocol: Document 06/07/19 12:00 [facility] (Rec: 06/07/19 12:03 [email or web address]) Pulse Oximetry Assessment Oxygen Saturation (92-100) 97 Oxygen Delivery Method AVAP Fraction of Inspired Oxygen (FIO2) 25 Equipment Usage Equipment in Use Continuous SpO2 Machine # 2 Pulse Oximeter Nocturnal Start: 05/14/19 13:35 Freq: RTQ4 Status: Complete Protocol: Document 05/15/19 07:26 [facility] (Rec: 05/15/19 07:27 [id number]) Nocturnal Pulse Oximetry Equipment Usage Equipment Discontinued Continuous SpO2 Machine # 5 Intake & Output 06/07/19 06/08/19 06/09/19 06:59 06:59 06:59 Intake Total 1198 1295 936 Output Total 1540 725 225 Balance -342 570 711 Weight 109.1 kg 113.5 kg 113.5 kg Exam: See progress note from today Results Laboratory Results: 06/08/19 08:52 06/08/19 03:35 06/08/19 06/08/19 06/08/19 03:35 03:35 03:35 WBC Cancelled RBC Cancelled Hgb Cancelled Hct Cancelled MCV Cancelled MCH Cancelled MCHC Cancelled RDW Cancelled Plt Count Cancelled Seg Neutrophils % Cancelled Carbonic Acid 0.65 L HCO3/H2CO3 Ratio 19:1 ABG pH 7.38 ABG pCO2 21.7 L ABG pO2 133.1 H ABG HCO3 12.5 L ABG O2 Saturation 98.7 H ABG Base Excess -11.7 FiO2 40% Sodium 140.6 Potassium 3.6 Chloride 110 H Carbon Dioxide 18 L Anion Gap 13 BUN 35 H Creatinine 1.04 Est GFR ( Amer) > 60 Glucose 262 H Lactic Acid Calcium 9.2 Phosphorus 3.9 Magnesium 2.0 Triglycerides 157 H Fluid Type Fluid Source Fluid Color Fluid Appearance Fluid Viscosity Fluid WBC Fluid RBC Blood Type 06/08/19 06/08/19 06/08/19 03:35 04:05 08:52 WBC 23.7 H 23.6 H RBC 2.37 L 2.39 L Hgb 7.0 L 7.0 L Hct 22.0 L 22.3 L MCV 93 93 MCH 29.5 29.4 MCHC 31.7 L 31.6 L RDW 15.8 H 15.6 H Plt Count 39 L 31 L Seg Neutrophils % Not Reportable Not Reportable Carbonic Acid HCO3/H2CO3 Ratio ABG pH ABG pCO2 ABG pO2 ABG HCO3 ABG O2 Saturation ABG Base Excess FiO2 Sodium Potassium Chloride Carbon Dioxide Anion Gap BUN Creatinine Est GFR ( Amer) Glucose Lactic Acid 1.6 Calcium Phosphorus Magnesium Triglycerides Fluid Type Fluid Source Fluid Color Fluid Appearance Fluid Viscosity Fluid WBC Fluid RBC Blood Type 06/08/19 06/08/19 16:00 16:15 WBC RBC Hgb Hct MCV MCH MCHC RDW Plt Count Seg Neutrophils % Carbonic Acid HCO3/H2CO3 Ratio ABG pH ABG pCO2 ABG pO2 ABG HCO3 ABG O2 Saturation ABG Base Excess FiO2 Sodium Potassium Chloride Carbon Dioxide Anion Gap BUN Creatinine Est GFR ( Amer) Glucose Lactic Acid Calcium Phosphorus Magnesium Triglycerides Fluid Type Cancelled Fluid Source Cancelled Fluid Color Cancelled Fluid Appearance Cancelled Fluid Viscosity Cancelled Fluid WBC Cancelled Fluid RBC Cancelled Blood Type B POSITIVE 05/08/19 05/15/19 05/29/19 12:26 17:15 23:24 Creatine Kinase 70 CK-MB (CK-2) 3.60 Troponin I 0.084 NT-Pro-B Natriuret Pep 594 H 05/30/19 05/30/19 06/05/19 08:15 08:15 05:15 Creatine Kinase 22 L CK-MB (CK-2) 3.64 Troponin I 0.092 NT-Pro-B Natriuret Pep 1400 H Impressions: Thyroid Ultrasound 05/16/19 08:00 IMPRESSION: Multinodular goiter as detailed above. Within the left lobe of thyroid gland there is a TR 3 nodule that measures approximately 1.5 cm. Thoracentesis Ultrasound 05/17/19 08:00 IMPRESSION: Successful ultrasound-guided placement of a 10 [place] all-purpose drainage catheter into the fluid-filled right pleural space. Thoracentesis 05/20/19 00:00 IMPRESSION: SUCCESSFUL PLACEMENT OF A RIGHT SIDED CHEST TUBE USING CT GUIDANCE. Head CT 05/31/19 00:00 IMPRESSION: No acute intracranial abnormality. EVIDENCE OF ACUTE STROKE: NO. Chest CT 06/07/19 00:00 IMPRESSION: Increased size of a loculated right-sided hydropneumothorax with unchanged positioning of a posterior approach pleural catheter. Progressive right upper lobe volume loss and persistent right middle/ lower lobe collapse. Increased left lung patchy and ground-glass airspace opacities concerning for worsening infectious process/pulmonary edema. Chest X-Ray 06/07/19 06:00 IMPRESSION: Unchanged dense opacification of the right hemithorax, likely combination of pleural effusion and atelectasis/airspace disease. Stable small bore right-sided chest tube. Patchy left basilar opacities possibly atelectasis or infection. Venous Doppler Study 06/08/19 00:00 IMPRESSION: Positive DVT right popliteal and femoral veins. Thyroid Ultrasound 05/16/19 08:00 IMPRESSION: Multinodular goiter as detailed above. Within the left lobe of th yroid gland there is a TR 3 nodule that measures approximately 1.5 cm. Thoracentesis Ultrasound 05/17/19 08:00 IMPRESSION: Successful ultrasound-guided placement of a 10 [place] all-purpose drainage catheter into the fluid-filled right pleural space. Thoracentesis 05/20/19 00:00 IMPRESSION: SUCCESSFUL PLACEMENT OF A RIGHT SIDED CHEST TUBE USING CT GUIDANCE. Head CT 05/31/19 00:00 IMPRESSION: No acute intracranial abnormality. EVIDENCE OF ACUTE STROKE: NO. Chest CT 06/07/19 00:00 IMPRESSION: Increased size of a loculated right-sided hydropneumothorax with unchanged positioning of a posterior approach pleural catheter. Progressive right upper lobe volume loss and persistent right middle/ lower lobe collapse. Increased left lung patchy and ground-glass airspace opacities concerning for worsening infectious process/pulmonary edema. Chest X-Ray 06/07/19 06:00 IMPRESSION: Unchanged dense opacification of the right hemithorax, likely comb ination of pleural effusion and atelectasis/airspace disease. Stable small bore right-sided chest tube. Patchy left basilar opacities possibly atelectasis or infection. Venous Doppler Study 06/08/19 00:00 IMPRESSION: Positive DVT right popliteal and femoral veins. Positive RUE: Basilic, Cephalic, Axillary and subclavian Right UE Plan Discharge Plan: Transfer to [facility] ICU, Dr Vega Time Spent: Greater than 30 Minutes
[2019-06-08 20:29] VITALS: BP 107/54
[2019-06-08] MEDS: PHARMACY COMMUNICATION ORDER MC SCH (21:46)
[2019-06-08] MEDS ORDERED: VANCOMYCIN HCL 1,250 MG in DEXTROSE 5%-WATER 250 ML IV SCH (22:00)
--- NOTE | 2019-06-09 16:48 | EKG REPORT ---
SEVERITY:- ABNORMAL ECG - SINUS RHYTHM REPOL ABNRM SUGGESTS ISCHEMIA, DIFFUSE LEADS vs LVH : Confirmed by: Lillie Stover 09-Jun-2019 16:47:31
== END 2019-06-08 22:40 | disposition short-term general hospital (02) | DRG 907 ==
LOC: ER 10:18 → INTOOBSV 15:42 → EH 15:42 → UNDOADMOB 15:42 → 4S 19:32 → EH 19:32 → OBSVTOIN 05-12 14:45 → INTOOBSV 05-12 14:45 → ICU 05-15 17:30 → 4S 05-15 17:30 → OBSVTOIN 05-18 08:00 → INTOOBSV 05-18 08:00 → UNDOADMOB 05-18 08:00 → ICU 05-18 08:00 → 4S 05-18 08:00 → EH 05-18 08:00 → ICU 05-18 08:23 → 4S 05-18 08:23 → UNDOADMOB 05-18 08:23 → ICU 05-18 08:23 → OBSVTOIN 05-18 08:23 → INTOOBSV 05-18 08:23 → 3W 05-18 18:56 → ICU 05-18 18:56 → 3W 05-18 18:56 → ICU 05-28 12:22 → 4S 05-31 16:35 → ICU 06-07 12:15
PROVIDERS: ADMIT Anesthesiology; ATTEND Internal Medicine Critical Care Medicine
PROC: 0B9D8ZX Drainage of Right Middle Lung Lobe, Via Natural or Artificial Opening Endoscopic, Diagnostic (ICD-10-PCS; 2019-05-09)
PROC: 0B9C8ZX Drainage of Right Upper Lung Lobe, Via Natural or Artificial Opening Endoscopic, Diagnostic (ICD-10-PCS; 2019-05-09)
PROC: 0S9C3ZX Drainage of Right Knee Joint, Percutaneous Approach, Diagnostic (ICD-10-PCS; 2019-05-10)
PROC: 0SBC4ZZ Excision of Right Knee Joint, Percutaneous Endoscopic Approach (ICD-10-PCS; principal; 2019-05-10 14:00)
PROC: 0BH17EZ Insertion of Endotracheal Airway into Trachea, Via Natural or Artificial Opening (ICD-10-PCS; 2019-05-15)
PROC: 5A1945Z Respiratory Ventilation, 24-96 Consecutive Hours (ICD-10-PCS; 2019-05-15)
PROC: 0W9930Z Drainage of Right Pleural Cavity with Drainage Device, Percutaneous Approach (ICD-10-PCS; 2019-05-17)
PROC: 02HV33Z Insertion of Infusion Device into Superior Vena Cava, Percutaneous Approach (ICD-10-PCS; 2019-05-22)
PROC: 3E0L4GC Introduction of Other Therapeutic Substance into Pleural Cavity, Percutaneous Endoscopic Approach (ICD-10-PCS; 2019-05-26)
PROC: 0BH17EZ Insertion of Endotracheal Airway into Trachea, Via Natural or Artificial Opening (ICD-10-PCS; 2019-06-07)
PROC: 5A1945Z Respiratory Ventilation, 24-96 Consecutive Hours (ICD-10-PCS; 2019-06-07)
PROC: 05HN33Z Insertion of Infusion Device into Left Internal Jugular Vein, Percutaneous Approach (ICD-10-PCS; 2019-06-07)
PROC: 03HB33Z Insertion of Infusion Device into Right Radial Artery, Percutaneous Approach (ICD-10-PCS; 2019-06-07)
DX: M96.840 Postprocedural hematoma of a musculoskeletal structure following a musculoskeletal system procedure (principal); J96.01 Acute respiratory failure with hypoxia; J96.02 Acute respiratory failure with hypercapnia; J18.9 Pneumonia, unspecified organism; J86.0 Pyothorax with fistula; N17.9 Acute kidney failure, unspecified; I82.411 Acute embolism and thrombosis of right femoral vein; J98.11 Atelectasis; C34.31 Malignant neoplasm of lower lobe, right bronchus or lung; J91.0 Malignant pleural effusion; C79.51 Secondary malignant neoplasm of bone; G93.40 Encephalopathy, unspecified; I31.3 Pericardial effusion (noninflammatory); I82.B11 Acute embolism and thrombosis of right subclavian vein; R78.81 Bacteremia; I10 Essential (primary) hypertension; R00.0 Tachycardia, unspecified; E86.0 Dehydration; E11.649 Type 2 diabetes mellitus with hypoglycemia without coma; Z79.84 Long term (current) use of oral hypoglycemic drugs; D72.829 Elevated white blood cell count, unspecified; E66.01 Morbid (severe) obesity due to excess calories; Z68.32 Body mass index [BMI] 32.0-32.9, adult; Z79.01 Long term (current) use of anticoagulants; E05.90 Thyrotoxicosis, unspecified without thyrotoxic crisis or storm; F32.9 Major depressive disorder, single episode, unspecified; E11.40 Type 2 diabetes mellitus with diabetic neuropathy, unspecified; G89.3 Neoplasm related pain (acute) (chronic); G25.81 Restless legs syndrome; E87.5 Hyperkalemia; E83.52 Hypercalcemia; Z78.1 Physical restraint status; D64.9 Anemia, unspecified; D69.6 Thrombocytopenia, unspecified; Z87.891 Personal history of nicotine dependence; Y84.8 Other medical procedures as the cause of abnormal reaction of the patient, or of later complication, without mention of misadventure at the time of the procedure; Y79.1 Therapeutic (nonsurgical) and rehabilitative orthopedic devices associated with adverse incidents
CPT/HCPCS: 01400; 31500; 32551; 32557; 36415; 36600; 36620; 70450; 71045; 71250; 71260; 76536; 80048; 80053; 80076; 80162; 80202; 81001; 82040; 82140; 82310; 82550; 82553; 82565; 82803; 82962; 83036; 83605; 83615; 83735; 83880; 84100; 84439; 84443; 84478; 84481; 84484; 84550; 85025; 85027; 85610; 85652; 85730; 86022; 86140; 86900; 86901; 87015; 87040; 87070; 87075; 87077; 87101; 87116; 87150; 87205; 87206; 87324; 87449; 87486; 88305; 89050; 92950; 93005; 93010; 93306; 93321; 93970; 93971; 94002; 94003; 94640; 94660; 94667; 94762; 94799; 96374; 96375; 96376; 99232; 99284; 99291; 99292; C1729; C1894; G0378; J0153; J0282; J0360; J0630; J0692; J0696; J1160; J1200; J1642; J1720; J1815; J1940; J1956; J2020; J2060; J2185; J2250; J2270; J2405; J2430; J2704; J2920; J3010; J3370; J3475; J3490; J7030; J7040; J7042; J7050; J7060; J7120; J7620; P9041; P9047; S0028